=== PATIENT | male | born 1965 | race Caucasian/White ===

== ENCOUNTER 2016-08-13 13:55 | Day surgery (SDC) | payer OTHER ==
[~2016-08-13] VITALS: Ht 167.6 cm; Wt 59.0 kg
[~2016-08-13 13:55] MED LIST: B-COCAP2 PO; CLOP1TAB15 PO; IMDSR60 PO; METO-217 PO; OXYC-609 PO; OXYC1TAB3 PO; PSYL55.43 PO; VANCOMYCIN INJ 1,000 MG in SODIUM CHLORIDE 0.9% 250ML 250 ML IV SCH
[2016-08-13] MEDS ORDERED: METO1TAB69 PO (14:32)
[2016-08-13 14:34] VITALS: BP 85/47; PULSE 72; TEMP 37; O2SAT 96; Ht 167.6 cm; Wt 59.0 kg
[2016-08-13 15:29] VITALS: BP 87/46; PULSE 68; O2SAT 95
[2016-08-13 17:33] VITALS: BP 108/66; PULSE 67; TEMP 37; O2SAT 95
[2016-08-13 18:18] LABS: HEMATOCRIT 34.4 % (42-52); MEAN CELL VOLUME 89.1 fL (80-100); MEAN CORPUSCULAR HEMOGLOBIN 30.1 pg (25-34); MEAN CORPUSCULAR HGB CONC 33.7 g/dl (32-36); PLATELET COUNT 226 K/uL (130-400); RED BLOOD COUNT 3.86 M/uL (4.7-6.1); WHITE BLOOD COUNT 35.59 K/uL (4.8-10.8)
[2016-08-13] MEDS ORDERED: PLV75 PO (22:13)
[2016-08-13] MEDS ORDERED: [UNRECOGNIZED DRUG - CODE] PO (22:13)
[2016-08-13] MEDS ORDERED: ISOS60TA25 PO (22:13)
[2016-08-13] MEDS ORDERED: LPT/20 PO (22:13)
[2016-08-13] MEDS ORDERED: CINA0.42 PO (22:13)
[2016-08-13] MEDS ORDERED: PRT/40 PO (22:13)
[2016-08-13] MEDS ORDERED: ASPI81TA28 PO (22:17)
[2016-08-13] MEDS ORDERED: AMPI500C9 PO (22:17)
[2016-08-13] MEDS ORDERED: B-CO1CAP17 PO (22:30)
[2016-08-13] MEDS ORDERED: PSYL48.59 PO (22:30)
[2016-08-21] MEDS ORDERED: VNCS125 PO (13:50)
[2016-08-21] MEDS ORDERED: PRED10TA PO (13:50)
[2016-08-21] MEDS ORDERED: CEPH500C2 PO (13:50)
[2016-09-14] MEDS ORDERED: VNCS125 PO (10:41)
[2016-11-21] MEDS ORDERED: CPC PO (11:42)
[2016-12-13] MEDS ORDERED: IMDSR60 PO (11:26)
== END 2016-08-31 13:51 | disposition home or self-care (01) ==
LOC: C.MTU 13:55
PROVIDERS: ATTEND Internal Medicine
DX: N18.6 End stage renal disease (principal); R78.81 Bacteremia

== ENCOUNTER 2016-08-13 19:04 | Inpatient (IN) | payer OTHER ==
[~2016-08-13] VITALS: Ht 167.6 cm; Wt 59.6 kg
[~2016-08-13 19:04] MED LIST changes: +METO1TAB69 PO; -VANCOMYCIN INJ 1,000 MG in SODIUM CHLORIDE 0.9% 250ML 250 ML IV SCH
[2016-08-13] MEDS ORDERED: MoRPHine SULFATE 4 MG/ML 1 ML CARP\\VIAL IV STA (20:07)
[2016-08-13] MEDS ORDERED: ONDANSETRON INJ 2 MG/ML 2 ML VIAL IV STA (20:07)
--- NOTE | 2016-08-13 20:44 | DIAGNOSTIC IMAGING REPORT ---
CHEST ONE VIEW PORTABLE CLINICAL HISTORY: Sepsis. COMPARISON STUDY: Chest radiograph June 26, 2016. FINDINGS: No pneumothorax or pleural effusion is present. There are median sternotomy wires. Moderate enlargement of the cardiac silhouette is unchanged. There is no evidence of pulmonary edema. The appearance of the chest is unchanged. IMPRESSION: No acute cardiopulmonary findings. Stable cardiomegaly. Electronically signed by: Billy Mckay M.D. 08/13/2016 8:42 PM Dictated Date/Time: 08/13/2016 8:42 PM
[2016-08-13 21:04] LABS: INR 1.5 (0.9-1.1); PARTIAL THROMBOPLASTIN RATIO 1.8; PROTHROMBIN TIME (PATIENT) 16.1 SECONDS (9.0-12.0)
[2016-08-13] MEDS ORDERED: SODIUM CHLORIDE 0.9% 500ML 500 ML IV STA (21:09)
[2016-08-13 21:17] LABS: ALB/GLOB RATIO 0.4 (0.9-2); CALCIUM 8.9 mg/dl (8.5-10.1); CREATININE 6.1 mg/dl (0.60-1.40)
[2016-08-13 21:18] LABS: HEMATOCRIT 34.1 % (42-52); MEAN CELL VOLUME 89.7 fL (80-100); MEAN CORPUSCULAR HEMOGLOBIN 30.5 pg (25-34); MEAN PLATELET VOLUME 11.6 fL (7.4-10.4); PLATELET COUNT 239 K/uL (130-400); POTASSIUM 4.2 mmol/L (3.5-5.1); WHITE BLOOD COUNT 33.65 K/uL (4.8-10.8)
[2016-08-13 21:24] LABS: BASO % 0.2 %; BASO ABS # 0.07 K/uL (0-0.2); BUN/CREATININE RATIO 5.9 (10-20); COMPLETE YES; EOS % 0.2 %; IG% 1.1 %; LYMPH % 8.3 %; LYMPH ABS # 2.78 K/uL (1.2-3.4); MONO % 6.4 %; NEUT % 83.8 %; TARGET CELLS 1+; VACUOLIZATION 2+
--- NOTE | 2016-08-13 21:27 | DIAGNOSTIC IMAGING REPORT ---
CT OF THE ABDOMEN AND PELVIS WITHOUT CONTRAST, STONE PROTOCOL CLINICAL HISTORY: Abdominal pain. Sepsis. Evaluate for ascites. COMPARISON STUDY: CT of the abdomen and pelvis June 26, 2016. TECHNIQUE: Helical axial images of the abdomen and pelvis were obtained without IV or oral contrast according to renal stone protocol. FINDINGS: The heart is moderately enlarged. Calcification within the wall of the right ventricle is noted. This is unchanged. There is also calcification along the liver capsule and within a right abdominal hernia sac along the abdominal wall. A small amount of ascites is noted. There is generalized anasarca which has increased since prior exam. Evaluation of the abdomen and pelvis is suboptimal on this unenhanced exam. The spleen is not visualized. Numerous moderately enlarged retroperitoneal lymph nodes are unchanged since exam of June 26, 2016. These measure up to 1.9 cm. 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 This contains multiple small bowel loops. There is no evidence for a bowel obstruction. Bilateral lower quadrant renal allografts are noted. There is extensive vascular calcification. The appearance of the allograft is unchanged and prior exam of June 26, 2016. No pneumatosis, free air or portal venous gas is present. Enlarged iliac lymph nodes are unchanged no suspicious skeletal lesions are identified. IMPRESSION: 1. Suboptimal evaluation of the abdomen and pelvis given the lack of IV and oral contrast. 2. Generalized anasarca and a small amount of abdominal and pelvic ascites which has increased since CT of June 26, 2016. 3. Moderate abdominal and pelvic lymphadenopathy. This is similar to prior CT but mildly increased since earlier exams. This is nonspecific and could reflect a lymphoproliferative process or be reactive. 4. Redemonstration of multifocal calcifications within the abdomen. This is nonspecific although could be related to renal failure. 5. Extensive atherosclerotic calcification with suspected occlusion of the right common iliac artery. 6. Cirrhotic liver. 7. Sided abdominal hernia which may reflect a Spigelian which contains multiple loops of small bowel. No bowel obstruction. Electronically signed by: Billy Mckay M.D. 08/13/2016 9:25 PM Dictated Date/Time: 08/13/2016 9:12 PM
[2016-08-13] MEDS ORDERED: ERTAPENEM 1 GM ADDVIAL IV ONE (22:00)
[2016-08-13] MEDS ORDERED: PRT/40 PO (22:13)
[2016-08-13] MEDS ORDERED: ISOS60TA25 PO (22:13)
[2016-08-13] MEDS ORDERED: CINA0.42 PO (22:13)
[2016-08-13] MEDS ORDERED: PLV75 PO (22:13)
[2016-08-13] MEDS ORDERED: [UNRECOGNIZED DRUG - CODE] PO (22:13)
[2016-08-13] MEDS ORDERED: LPT/20 PO (22:13)
[2016-08-13] MEDS ORDERED: ASPI81TA28 PO (22:17)
[2016-08-13] MEDS ORDERED: AMPI500C9 PO (22:17)
[2016-08-13] MEDS ORDERED: B-CO1CAP17 PO (22:30)
[2016-08-13] MEDS ORDERED: PSYL48.59 PO (22:30)
--- NOTE | 2016-08-13 22:43 | History and Physical ---
History & Physical Date & Time of Service: Aug 13, 2016 at 22:21 Chief Complaint: Sent By To Get Mri, Abd Pain, Has Sepsis Primary Care Physician: Todd Azevedo M.D. 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 The pt developed fevers and chills starting 4 days prior. He was ruled out for influ and cultured at his MDs office. He was then started on Vancomycin when results returned + for G (+) cocci. He felt that there may have been some increasing drainage form the site of his recent cystostomy and notes that the incision had opened up 1 week prior. He was instructed to attend the ER and obtain a CT abdomen to evaluate for a new fluid collection which might be serving as an infection reservoir. There is no significant collection on CT. Specificities/sensitivities have not resulted at present and the pt will be admitted for broad spectrum coverage pending results. He denies diarrhea, nausea, vomiting, CP, SOB - he does not make urine. The pt first developed cholecystitis summer 2015 - he had a drain placed as he was considered too high risk for surgery. The drain was in place for 3 months when he proceeded to a cholecystectomy. He states that the surgery was complicated by shock and that the gallbladder was attached to the liver capsule. He suffered acute on chronic liver failure and possibly cardiogenic shock following surgery. Past Medical/Surgical History Medical Problems: (1) Acute respiratory failure Status: Resolved (2) CAD / [place] (myocardial infarction) Status: Chronic (3) Syncope Status: Resolved 4) ESRD on dialysis 5) Atrial flutter 6) History of aneurysmal GI bleed 7) Chronic systolic CHF - EF 40% 8) PVD 9) Chronic anemia 10) HPL 11) HTN 12) Cholecystitis 13) Cirrhosis - states that he was diagnosed this summer and was being evaluated for a transplant following his gall bladder surgery Surgical Problems: (1) History of renal transplant x 3 1970s, 1990s, 2009 - recent rejection/ failure 2015 Status: Chronic (2) Hx of CABG Status: Resolved 3 vessel 3) Cholecystectomy - cystostomy drain placed initially 4) Dialysis graft Family History FH: heart disease Social History Smoking Status: Never Smoker Drug Use: none Marital Status: Housing status: lives with family Occupational Status: employed, disabled Immunizations History of Influenza Vaccine: No Influenza Vaccine Date: May 03, 2008 History of Tetanus Vaccine?: Unknown Tetanus Immunization Date: Oct 06, 2000 History of Pneumococcal: No Pneumococcal Date: Oct 06, 2005 History of Hepatitis B Vaccine: Unknown Hepatitis Immunization Date: Oct 06, 2000 Multi-Drug Resistant Organisms History of MDRO: No Allergies Coded Allergies: POLLEN (Verified Allergy, Unknown, "HAYFEVER", 08/13/16) Diazoxide (Verified Adverse Reaction, Intermediate, ELEVATE BP;N&V, ) NSAIDs (Verified Adverse Reaction, Unknown, KIDNEY TRANSPLANT, 08/13/16) Home Medications Scheduled Ampicillin (Ampicillin), 2 GM PO PRN UD Aspirin (Aspirin Ec), 81 MG PO DAILY Atorvastatin (Atorvastatin Calcium), 20 MG PO HS Cinacalcet Hydrochloride (Sensipar), 30 MG PO QAM Clopidogrel Bisulfate (Clopidogrel), 75 MG PO DAILY Isosorbide Mononitrate Ext Rel (Imdur Ext Rel), 60 MG PO DAILY Metoprolol Succ (Toprol Xl) (Toprol-Xl ), 100 MG PO BID Pantoprazole (Pantoprazole Sodium), 40 MG PO BID Penicillin V Potassium (Penicillin V Potassium), 250 MG PO QAM Psyllium (Metamucil), 1 PKT PO DAILY Vitamin B Cmplx/Vitc/Folic Ac (Nephrocaps), 1 CAP PO DAILY Scheduled PRN Oxycodone HCl (Oxycodone HCl), 5 MG PO Q8 PRN for Pain Review of Systems Constitutional: + chills, + fever, + sweats Eyes: No eye pain, No worsening of vision ENT: No hearing loss, No nasal symptoms, No unusual epistaxis Respiratory: No cough, No sputum, No wheezing Cardiovascular: No PND, No chest pain, No orthopnea Abdomen: + nausea, + pain, No vomiting Musculoskeletal: No joint pain, No muscle pain Genitourinary - Male: No dysuria, No hematuria, No urinary frequency, No urinary urgency Neurologic: No memory loss, No paralysis, No weakness Psychiatric: No depression symptoms Endocrine: No fatigue Hematologic / Lymphatic: No abnormal bleeding/bruising Integumentary: No rash Allergic / Immunologic: No environmental allergies Physical Exam Vital Signs Date Time Temp Pulse Resp B/P Pulse Ox O2 Delivery O2 Flow Rate FiO2 08/13/16 21:20 73 18 95/55 93 Room Air 08/13/16 20:37 93 Room Air 08/13/16 19:14 37.3 73 20 95/63 94 Room Air General Appearance: WD/WN, no apparent distress Head: normocephalic Eyes: normal inspection, EOMI, + pertinent finding (Icteric) ENT: normal ENT inspection, pharynx normal Neck: supple, no JVD Respiratory/Chest: chest non-tender, lungs clear, normal breath sounds, no respiratory distress, no accessory muscle use Cardiovascular: regular rate, rhythm, no edema Abdomen/GI: + tenderness (Abdomen is tender with guarding in RLQ and LUQ - there is erythema over the RLQ and distention due to placement of a cadaveric kidney in addition to a hernia), + pertinent finding (open - clean appearing incision wound RUQ) Back: normal inspection, no CVA tenderness Extremities/Musculoskelatal: normal inspection, no calf tenderness, normal capillary refill, no pedal edema, normal range of motion Neurologic/Psych: 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 tested, no motor/sensory deficits, alert, normal mood/affect, normal reflexes, oriented x 3 Skin: + jaundice, + pertinent finding (Erythema over RLQ - open - clean appearing incision wound RUQ) Diagnostics Laboratory Results Results Past 24 Hours Test 08/13/16 20:25 08/13/16 20:26 Range/Units White Blood Count 33.65 4.8-10.8 K/uL Red Blood Count 3.80 4.7-6.1 M/uL Hemoglobin 11.6 14.0-18.0 g/dL Hematocrit 34.1 42-52 % Mean Corpuscular Volume 89.7 80-100 fL Mean Corpuscular Hemoglobin 30.5 25-34 pg Mean Corpuscular Hemoglobin Concent 34.0 32-36 g/dl Platelet Count 239 130-400 K/uL Mean Platelet Volume 11.6 7.4-10.4 fL Neutrophils (%) (Auto) 83.8 % Lymphocytes (%) (Auto) 8.3 % Monocytes (%) (Auto) 6.4 % Eosinophils (%) (Auto) 0.2 % Basophils (%) (Auto) 0.2 % Neutrophils # (Auto) 28.18 1.4-6.5 K/uL Lymphocytes # (Auto) 2.78 1.2-3.4 K/uL Monocytes # (Auto) 2.16 0.11-0.59 K/uL Eosinophils # (Auto) 0.08 0-0.5 K/uL Basophils # (Auto) 0.07 0-0.2 K/uL RDW Standard Deviation 58.0 36.4-46.3 fL RDW Coefficient of Variation 18.4 11.5-14.5 % Immature Granulocyte % (Auto) 1.1 % Immature Granulocyte # (Auto) 0.38 0.00-0.02 K/uL Nucleated RBC Absolute Count (auto) 0.26 0-0 K/uL Nucleated Red Blood Cells % 0.8 % Toxic Vacuolation 2+ Pappenheimer Bodies 1+ Target Cells 1+ Prothrombin Time 16.1 9.0-12.0 SECONDS Prothromb Time International Ratio 1.5 0.9-1.1 Activated Partial Thromboplast Time 46.2 21.0-31.0 SECONDS Partial Thromboplastin Ratio 1.8 Sodium Level 135 136-145 mmol/L Potassium Level 4.2 3.5-5.1 mmol/L Chloride Level 93 98-107 mmol/L Carbon Dioxide Level 27 21-32 mmol/L Anion Gap 14.0 3-11 mmol/L Blood Urea Nitrogen 35 7-18 mg/dl Creatinine 6.10 0.60-1.40 mg/dl Est Creatinine Clear Calc Drug Dose 12.5 ml/min Estimated GFR () 11.4 Estimated GFR (Non- 9.8 BUN/Creatinine Ratio 5.9 10-20 Random Glucose 87 70-99 mg/dl Calcium Level 8.9 8.5-10.1 mg/dl Total Bilirubin 3.2 0.2-1 mg/dl Aspartate Amino Transf (AST/SGOT) 27 15-37 U/L Alanine Aminotransferase (ALT/SGPT) 14 12-78 U/L Alkaline Phosphatase 332 45-117 U/L Total Protein 7.5 6.4-8.2 gm/dl Albumin 2.0 3.4-5.0 gm/dl Globulin 5.5 2.5-4.0 gm/dl Albumin/Globulin Ratio 0.4 0.9-2 Lipase 32 73-393 U/L Bedside Lactic Acid Venous 4.16 0.90-1.70 mmol/L Microbiology Results 08/13/16 Blood Culture, Received Pending 08/13/16 Blood Culture, Received Pending Diagnostic Radiology 1. Suboptimal evaluation of the abdomen and pelvis given the lack of IV and oral contrast. 2. Generalized anasarca and a small amount of abdominal and pelvic ascites which has increased since CT of June 26, 2016. 3. Moderate abdominal and pelvic lymphadenopathy. This is similar to prior CT but mildly increased since earlier exams. This is nonspecific and could reflect a lymphoproliferative process or be reactive. 4. Redemonstration of multifocal calcifications within the abdomen. This is nonspecific although could be related to renal failure. 5. Extensive atherosclerotic calcification with suspected occlusion of the right common iliac artery. 6. Cirrhotic liver. 7. R Sided abdominal hernia which may reflect a Spigelian which contains multiple loops of small bowel. No bowel obstruction. 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 The pt developed fevers and chills starting 4 days prior. He was ruled out for influ and cultured at his MDs office. He was then started on Vancomycin when results returned + for G (+) cocci. He felt that there may have been some increasing drainage form the site of his recent cystostomy and notes that the incision had opened up 1 week prior. He was instructed to attend the ER and obtain a CT abdomen to evaluate for a new fluid collection which might be serving as an infection reservoir. There is no significant collection on CT. Specificities/sensitivities have not resulted at present and the pt will be admitted for broad spectrum coverage pending results. He denies diarrhea, nausea, vomiting, CP, SOB - he does not make urine. 1) Fevers / leukocytosis - multiple possible sources exist for his current infection including intraabdominal, cellulitis and dialysis-related bacteremia. Blood culture is+ for Gram(+) cocci however specificity and sensitivity are pending. He has been placed on Vanc and Ertapenem. We will consult the ID service. He may need surgical eval as well if this is an intraabdominal process. SBP is less likely as there is only a small amount of ascites present but should be kept in mind due to his cirrhosis and abdominal tenderness. Clinically this may involve his hernia mesh or cadaveric kidney as he is very tender in his RLQ and there is overlying warmth and erythema. He may need an echo if no clear source is elucidated. Despite a high white count and fevers he has been clinically stable. If this pt requires any intervention he should likely be transferred to a tertiary center - he was previously at [facility]. 2) ESRD - Nephrology will be consulted for dialysis. 3) CAD - no evidence of ACS - cont ASA, statin, Imdur. 4) Cirrhosis - although the pt states he had liver failure the past summer, it does not appear that he appreciates this chronic condition. This may be contributing to his anasarca and he likely needs long-term f/u with a store sales consultant. LFTs are elevated - degree of chronicity unclear. Will trend labs AM. 5) CHF - Anasarca is present however he does not appear volume overloaded at present. Full code - heparin prophylaxis Total time for this admit including extensive record review, discusion with the ER attending and pt's Rn Endocrinology, Med rec, review of labs and imaging - 45 min Level of Care Med/Surg Resuscitation Status FULL RESUSCITATION VTE Prophylaxis Risk Level: Moderate Given or contraindicated: Unfractionated heparin SQ
[2016-08-13] MEDS ORDERED: ZOLPIDEM TARTRATE 5 MG TAB PO PRN (23:00)
[2016-08-13] MEDS ORDERED: MAGNESIUM HYDROXIDE SUSP 30 ML UDC PO PRN (23:00)
[2016-08-13] MEDS ORDERED: ACETAMINOPHEN 325 MG TAB PO PRN (23:00)
[2016-08-13] MEDS ORDERED: ALUMINUM/MAGNESIUM/SIMETH (MAALOX MAX) 30 ML UDC PO PRN (23:00)
[2016-08-13] MEDS ORDERED: INVANZ~PHARMACY CONSULT IN PROGRESS PRN (23:30)
[2016-08-13] MEDS ORDERED: VANCOMYCIN CONSULT ACTIVE PRN (23:30)
[2016-08-13] MEDS ORDERED: POLYETHYLENE (MIRALAX) 17 GM PACK PO PRN (23:30)
--- NOTE | 2016-08-13 23:47 | EMERGENCY ROOM VISIT NOTE ---
History Report prepared by Craig: Darcie Palacio Under the Supervision of: Dr. Saleem Yeager M.D. First contact with patient: 19:59 Chief Complaint: REFERRED BY DOCTOR Stated Complaint: SENT BY DR TO GET MRI, ABD PAIN, HAS SEPSIS History of Present Illness The patient is a 51 year old male who presents to the Emergency Room with complaints of persistent abdominal pain that started earlier today. He rates his discomfort as an 8/10 in severity. The patient has an extensive past medical history that includes end stage renal disease. He had his first kidney transplant in the 1970's. He states it lasted for 8 years. His second transplant was in the and lasted for 15 years and his most recent transplant was 5 years ago and it failed last year, in 2016. He is currently on dialysis and was last dialyzed yesterday. He no longer makes urine. He has been nauseous and has vomited a few times over the past few days. The patient is currently being treated for "sepsis" and was given IV Vancomycin earlier today. He produced a gram positive blood culture 4 days ago after experiencing a persistent fever for the previous few days. He believes he is still experiencing a low grade fever around 99 degrees. His Agricultural Real Estate Agent called him earlier today and recommended he come to the ED for IV antibiotics and to possibly get a CT scan to look for a fluid collection. The patient also complains of a cough and body aches and notes several family members have been ill recently. Source of History: patient Onset: earlier today Position: abdomen Symptom Intensity: 8/10 Timing: other (persistent) Associated Symptoms: + cough, + fevers, + nausea, + vomiting Review of Systems See HPI for pertinent positives & negatives. A total of 10 systems reviewed and were otherwise negative. Past Medical & Surgical Medical Problems: (1) Abdominal pain (2) Acute H. pylori gastric ulcer (3) Acute respiratory failure (4) Anemia (5) Atrial flutter (6) Bacteremia (7) End-stage renal disease on hemodialysis (8) ESRD (end stage renal disease) on dialysis (9) Fever (10) Gastric mass (11) H. pylori infection (12) Immunosuppression (13) Intractable abdominal pain (14) [place] (myocardial infarction) (15) Secondary hyperparathyroidism of renal origin (16) SIRS (systemic inflammatory response syndrome) (17) Syncope Surgical Problems: (1) History of renal transplant (2) History of renal transplant (3) Hx of CABG Family History FH: heart disease Social History Smoking Status: Never Smoker Alcohol Use: none Drug Use: none Marital Status: Housing Status: lives with significant other Occupation Status: employed, disabled Current/Historical Medications Scheduled Ampicillin (Ampicillin), 2 GM PO PRN UD Aspirin (Aspirin Ec), 81 MG PO DAILY Atorvastatin (Atorvastatin Calcium), 20 MG PO HS Cinacalcet Hydrochloride (Sensipar), 30 MG PO QAM Clopidogrel Bisulfate (Clopidogrel), 75 MG PO DAILY Isosorbide Mononitrate Ext Rel (Imdur Ext Rel), 60 MG PO DAILY Metoprolol Succ (Toprol Xl) (Toprol-Xl ), 100 MG PO BID Pantoprazole (Pantoprazole Sodium), 40 MG PO BID Penicillin V Potassium (Penicillin V Potassium), 250 MG PO QAM Psyllium (Metamucil), 1 PKT PO DAILY Vitamin B Cmplx/Vitc/Folic Ac (Nephrocaps), 1 CAP PO DAILY Scheduled PRN Oxycodone HCl (Oxycodone HCl), 5 MG PO Q8 PRN for Pain Allergies Coded Allergies: POLLEN (Verified Allergy, Unknown, "HAYFEVER", 08/13/16) Diazoxide (Verified Adverse Reaction, Intermediate, ELEVATE BP;N&V, ) NSAIDs (Verified Adverse Reaction, Unknown, KIDNEY TRANSPLANT, 08/13/16) Physical Exam Vital Signs Date Time Temp Pulse Resp B/P Pulse Ox O2 Delivery O2 Flow Rate FiO2 08/13/16 21:20 73 18 95/55 93 Room Air 08/13/16 20:37 93 Room Air 08/13/16 19:14 37.3 73 20 95/63 94 Room Air Physical Exam Constitutional: Vital signs reviewed. Eyes: Pupils are equal round reactive to light. Conjunctiva are noninjected. ENT: Pharynx is clear without erythema or exudate. Mucous membranes are moist. Neck supple without meningeal signs. Respiratory: Clear to auscultation bilaterally. Breath sounds are equal bilaterally. Cardiovascular: Regular rate and rhythm. No rubs or gallops. GI: Soft, nondistended. Tender in the RUQ, no guarding. Bowel sounds are present. Musculoskeletal: AV fistula in the left arm, palpable thrill. Integumentary: No cyanosis. Neurological: The patient is awake and alert. No focal deficits. Psychiatric: Normal affect. Medical Decision & Procedures ER Provider Diagnostic Interpretation: This X-Ray was reviewed and interpreted by myself and the radiologist. CHEST ONE VIEW PORTABLE CLINICAL HISTORY: Sepsis. COMPARISON STUDY: Chest radiograph June 26, 2016. FINDINGS: No pneumothorax or pleural effusion is present. There are median sternotomy wires. Moderate enlargement of the cardiac silhouette is unchanged. There is no evidence of pulmonary edema. The appearance of the chest is unchanged. IMPRESSION: No acute cardiopulmonary findings. Stable cardiomegaly. Electronically signed by: Billy Mckay M.D. 08/13/2016 8:[address] scan was reviewed and interpreted by the radiologist and reviewed by myself. CT OF THE ABDOMEN AND PELVIS WITHOUT CONTRAST, STONE PROTOCOL CLINICAL HISTORY: Abdominal pain. Sepsis. Evaluate for ascites. COMPARISON STUDY: CT of the abdomen and pelvis June 26, 2016. TECHNIQUE: Helical axial images of the abdomen and pelvis were obtained without IV or oral contrast according to renal stone protocol. FINDINGS: The heart is moderately enlarged. Calcification within the wall of the right ventricle is noted. This is unchanged. There is also calcification along the liver capsule and within a right abdominal hernia sac along the abdominal wall. A small amount of ascites is noted. There is generalized anasarca which has increased since prior exam. Evaluation of the abdomen and pelvis is suboptimal on this unenhanced exam. The spleen is not visualized. Numerous moderately enlarged retroperitoneal lymph nodes are unchanged since exam of June 26, 2016. These measure up to 1.9 cm. 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 This contains multiple small bowel loops. There is no evidence for a bowel obstruction. Bilateral lower quadrant renal allografts are noted. There is extensive vascular calcification. The appearance of the allograft is unchanged and prior exam of June 26, 2016. No pneumatosis, free air or portal venous gas is present. Enlarged iliac lymph nodes are unchanged no suspicious skeletal lesions are identified. IMPRESSION: 1. Suboptimal evaluation of the abdomen and pelvis given the lack of IV and oral contrast. 2. Generalized anasarca and a small amount of abdominal and pelvic ascites which has increased since CT of June 26, 2016. 3. Moderate abdominal and pelvic lymphadenopathy. This is similar to prior CT but mildly increased since earlier exams. This is nonspecific and could reflect a lymphoproliferative process or be reactive. 4. Redemonstration of multifocal calcifications within the abdomen. This is nonspecific although could be related to renal failure. 5. Extensive atherosclerotic calcification with suspected occlusion of the right common iliac artery. 6. Cirrhotic liver. 7. Sided abdominal hernia which may reflect a Spigelian which contains multiple loops of small bowel. No bowel obstruction. Electronically signed by: Billy Mckay M.D. 08/13/2016 9:25 PM Laboratory Results 08/13/16 20:25 Red Blood Count 3.80, Mean Corpuscular Volume 89.7, Mean Corpuscular Hemoglobin 30.5, Mean Corpuscular Hemoglobin Concent 34.0, Mean Platelet Volume 11.6, Neutrophils (%) (Auto) 83.8, Lymphocytes (%) (Auto) 8.3, Monocytes (%) (Auto) 6.4, Eosinophils (%) (Auto) 0.2, Basophils (%) (Auto) 0.2, Neutrophils # (Auto) 28.18, Lymphocytes # (Auto) 2.78, Monocytes # (Auto) 2.16, Eosinophils # (Auto) 0.08, Basophils # (Auto) 0.07 08/13/16 20:25 Test 08/13/16 20:25 08/13/16 20:26 White Blood Count 33.65 K/uL (4.8-10.8) Red Blood Count 3.80 M/uL (4.7-6.1) Hemoglobin 11.6 g/dL (14.0-18.0) Hematocrit 34.1 % (42-52) Mean Corpuscular Volume 89.7 fL (80-100) Mean Corpuscular Hemoglobin 30.5 pg (25-34) Mean Corpuscular Hemoglobin Concent 34.0 g/dl (32-36) Platelet Count 239 K/uL (130-400) Mean Platelet Volume 11.6 fL (7.4-10.4) Neutrophils (%) (Auto) 83.8 % Lymphocytes (%) (Auto) 8.3 % Monocytes (%) (Auto) 6.4 % Eosinophils (%) (Auto) 0.2 % Basophils (%) (Auto) 0.2 % Neutrophils # (Auto) 28.18 K/uL (1.4-6.5) Lymphocytes # (Auto) 2.78 K/uL (1.2-3.4) Monocytes # (Auto) 2.16 K/uL (0.11-0.59) Eosinophils # (Auto) 0.08 K/uL (0-0.5) Basophils # (Auto) 0.07 K/uL (0-0.2) RDW Standard Deviation 58.0 fL (36.4-46.3) RDW Coefficient of Variation 18.4 % (11.5-14.5) Immature Granulocyte % (Auto) 1.1 % Immature Granulocyte # (Auto) 0.38 K/uL (0.00-0.02) Nucleated RBC Absolute Count (auto) 0.26 K/uL (0-0) Nucleated Red Blood Cells % 0.8 % Toxic Vacuolation 2+ Pappenheimer Bodies 1+ Target Cells 1+ Prothrombin Time 16.1 SECONDS (9.0-12.0) Prothromb Time International Ratio 1.5 (0.9-1.1) Activated Partial Thromboplast Time 46.2 SECONDS (21.0-31.0) Partial Thromboplastin Ratio 1.8 Anion Gap 14.0 mmol/L (3-11) Est Creatinine Clear Calc Drug Dose 12.5 ml/min Estimated GFR () 11.4 Estimated GFR (Non- 9.8 BUN/Creatinine Ratio 5.9 (10-20) Calcium Level 8.9 mg/dl (8.5-10.1) Total Bilirubin 3.2 mg/dl (0.2-1) Aspartate Amino Transf (AST/SGOT) 27 U/L (15-37) Alanine Aminotransferase (ALT/SGPT) 14 U/L (12-78) Alkaline Phosphatase 332 U/L (45-117) Total Protein 7.5 gm/dl (6.4-8.2) Albumin 2.0 gm/dl (3.4-5.0) Globulin 5.5 gm/dl (2.5-4.0) Albumin/Globulin Ratio 0.4 (0.9-2) Lipase 32 U/L (73-393) Bedside Lactic Acid Venous 4.16 mmol/L (0.90-1.70) Laboratory results as reviewed by me. Medications Administered Medications (Trade) Dose Ordered Sig/Amanda Route Start Time Stop Time Status Last Admin Dose Admin Morphine Sulfate (MoRPHine SULFATE INJ) 4 mg NOW STAT IV 08/13/16 20:07 08/13/16 20:10 DC 08/13/16 20:43 4 MG Ondansetron HCl 4 mg 4 mg NOW STAT IV 08/13/16 20:07 08/13/16 20:10 DC 08/13/16 20:42 4 MG Sodium Chloride (Nss 500ml) 500 ml @ 999 mls/hr Q31M STAT IV 08/13/16 21:09 08/13/16 21:39 DC 08/13/16 21:21 999 MLS/HR Ertapenem (Invanz Iv) 1 gm ONE ONCE IV 08/13/16 22:00 08/13/16 22:01 DC 08/13/16 22:12 1 GM ED Course 2001: The patient was evaluated in room B10. A complete history and physical exam was performed. 2006: Zofran 4 mg IV, Morphine Sulfate 4 mg IV. 2108: NSS 500 ml @ 999 mls/hr IV. 2129: I reassessed the patient. He is resting comfortably. I discussed my plan for him to remain in the hospital for further evaluation and management and he and his verbalized complete understanding and agreement. 2148: I discussed the patients case with Dr. Woodson, [facility] Hospitalist. He is requesting I administer Ertapenem. The patient will be further evaluated. 2199: Ertapenem 1 gm IV. Medical Decision This is a 51-year-old male who presents with positive blood cultures, fever and abdominal pain. Differential diagnosis includes sepsis, SIRS, bacteremia, intra -abdominal abscess, pneumonia. I did perform a limited focused review of portions of the patient's old chart on the electronic medical record. The patient had blood work today which showed a white count of 36,000. I did evaluate the patient as noted above. The patient is fairly well appearing. He does complain of abdominal pain and has some tenderness in the right upper abdomen. IV access was established. The patient was placed on a continuous quality assurance monitor chassis. I did treat patient with IV morphine and Zofran. I did order and personally review the patient's chest x-ray as described above. Blood cultures were ordered. I did order and review the patient's blood work as noted in the electronic medical record. His white blood cell count is 35, 000. His lactic acid is over 4. His creatinine is 6. He is mildly hypertensive but reviewing his previous blood pressures he tends to run on the low side. He is not symptomatic or lightheaded. He was given normal saline IV. I did order a CT of the abdomen and pelvis. I did review the images myself as well as the radiology report as described above. There is no abscess or fluid collection. He does have some mild ascites and mild anasarca which was present on previous scanning. I did discuss the test results with the patient. He did wish to go home but I did not feel this was prudent given his findings. I did discuss the case with the hospitalist to requested he be placed on ertapenem. I did order IV ertapenem for the patient and he was admitted to the hospital. Consults Time Called: 2144 Consulting Physician: Dr. Woodson [facility] Hospitalist Returned Call: 2148 I discussed the patients case with Dr. Woodson [facility] Hospitalist. He is requesting I administer Ertapenem. The patient will be further evaluated. Impression Primary Impression: Sepsis Additional Impression: RUQ abdominal pain Scribe Attestation The scribe's documentation has been prepared under my direct and personally reviewed by me in its entirety. I confirm that the note above accurately reflects all work, treatment, procedures, and medical decision making performed by me. Departure Information Dispostion Being Evaluated By Hospitalist Referrals Todd Azevedo M.D. (PCP) Patient Instructions My [facility] Problem Qualifiers
[2016-08-14] VITALS (97 sets, daily range): BP systolic 58–161; BP diastolic 17–85; PULSE 58–77; TEMP 36.4–37.5; O2SAT 88–100; Ht 167.6 cm; Wt 59.6 kg
[2016-08-14] MEDS ORDERED: SODIUM CHLORIDE 0.9% 250ML 250 ML IV STA (00:12)
[2016-08-14] MEDS ORDERED: VANCOMYCIN INJ 1,200 MG in SODIUM CHLORIDE 0.9% 250ML 250 ML IV STA (00:31)
[2016-08-14] MEDS: NOREPINEPHRINE BIT INJ 8 MG in DEXTROSE 5% 500ML 500 ML IV PRN ×2 (02:02→15:13)
[2016-08-14] MEDS ORDERED: SODIUM CHLORIDE 0.9% 250ML 250 ML IV SCH (02:15)
[2016-08-14] MEDS: HEPARIN SOD 5000 UNIT/0.5 ML CARP SQ SCH ×3 (05:41→20:55)
[2016-08-14] MEDS: OXYCODONE HCL IR 5 MG TAB (IMMEDIATE RELEASE) PO PRN ×2 (07:39→23:18)
[2016-08-14 07:51] LABS: CREATININE 6.5 mg/dl (0.60-1.40)
[2016-08-14 08:21] LABS: INFLUENZA A PCR Neg for Influ A (NEG); INFLUENZA B PCR Neg for Influ B (NEG)
[2016-08-14] MEDS ORDERED: ACETAMINOPHEN 500 MG TAB PO SCH (08:30)
--- NOTE | 2016-08-14 08:50 | Hospitalist Progress Note ---
Hospitalist Progress Note Date of Service Aug 14, 2016. Subjective Pt evaluation today including: conversation w/ patient, physical exam, chart review, lab review, review of studies, conversation w/ organizational effectiveness consultant, review of inpatient medication list Pain: c/o abdominal wall pain Levophed titrated off, but MAP hanging around 60-65. Medications Current Inpatient Medications Medications (Trade) Dose Ordered Sig/Amanda Route Start Time Stop Time Status Last Admin Dose Admin Aspirin (Ecotrin Tab) 81 mg DAILY PO 08/14/16 09:00 09/13/16 08:59 Atorvastatin Calcium (Lipitor Tab) 20 mg HS PO 08/14/16 21:00 09/13/16 20:59 Clopidogrel Bisulfate (plAVix TAB) 75 mg DAILY PO 08/14/16 09:00 09/13/16 08:59 Isosorbide Mononitrate (Imdur Ext Rel Tab) 60 mg DAILY PO 08/14/16 09:00 09/13/16 08:59 Future Hold Metoprolol Succinate (Toprol Xl Tab) 100 mg BID PO 08/14/16 09:00 09/13/16 08:59 Pantoprazole Sodium (Protonix Tab) 40 mg BID PO 08/14/16 09:00 09/13/16 08:59 Vitamin B Complex/ Vit C/Folic Acid (Nephrocaps) 1 cap DAILY PO 08/14/16 09:00 09/13/16 08:59 Cinacalcet (Sensipar) 30 mg QAM PO 08/14/16 09:00 09/13/16 08:59 Psyllium Hydrophilic Mucilloid (Metamucil Powder) 1 pkt DAILY PO 08/14/16 09:00 09/13/16 08:59 Oxycodone HCl (Roxicodone Immediate Rel Tab) 5 mg Q4H PRN PO 08/13/16 23:00 08/27/16 22:59 08/14/16 07:39 5 MG Hydromorphone HCl (Dilaudid Inj) 0.5 mg Q3H PRN IV 08/13/16 23:00 08/27/16 22:59 Heparin Sodium (Porcine) (Heparin Sq 5000 Unit/0.5ml) 5,000 unit Q8H SQ 08/14/16 06:00 09/13/16 05:59 08/14/16 05:41 5,000 UNIT Al Hydrox/Mg Hydrox/Simethicone (Maalox Max Susp) 15 ml Q4H PRN PO 08/13/16 23:00 09/12/16 22:59 Magnesium Hydroxide (Milk Of Magnesia Susp) 30 ml Q6H PRN PO 08/13/16 23:00 09/12/16 22:59 Polyethylene (Miralax Powder Packet) 17 gm DAILY PRN PO 08/13/16 23:30 09/12/16 23:29 Zolpidem Tartrate (Ambien Tab) 5 mg HSZ PRN PO 08/13/16 23:00 09/12/16 22:59 Ondansetron HCl 4 mg 4 mg Q6H PRN IV 08/13/16 23:00 09/12/16 22:59 Ertapenem/Sodium Chloride (Invanz Iv/Nss 50ml) 55 ml @ 120 mls/hr Q24H IV 08/14/16 22:00 08/23/16 21:59 Miscellaneous Information 1 ea UD PRN N/A 08/13/16 23:30 09/12/16 23:29 Vancomycin HCl 1 ea 1 ea UD PRN N/A 08/13/16 23:30 09/12/16 23:29 Norepinephrine Bitartrate/ Dextrose (Levophed Inj/ D5W 500ml) 508 ml @ 0 mls/hr Q0M PRN IV 08/14/16 01:43 09/13/16 01:42 08/14/16 02:02 0.1 MLS/HR Acetaminophen (Tylenol Tab) 1,000 mg 0830 PO 08/14/16 08:30 08/14/16 10:00 Objective Vital Signs Date Time Temp Pulse Resp B/P Pulse Ox O2 Delivery O2 Flow Rate FiO2 08/14/16 07:45 98 Nasal Cannula 1.0 08/14/16 07:45 36.4 71 27 116/69 98 Nasal Cannula 2.0 08/14/16 05:58 71 20 116/65 95 08/14/16 05:43 70 26 116/60 96 08/14/16 05:28 70 16 129/71 96 08/14/16 04:58 70 21 94/65 94 08/14/16 04:43 70 20 104/60 94 08/14/16 04:30 72 21 94 08/14/16 04:28 70 23 105/58 94 08/14/16 04:13 71 19 108/58 95 08/14/16 04:00 98 Nasal Cannula 2.0 08/14/16 04:00 36.5 70 27 104/64 98 Nasal Cannula 2.0 08/14/16 03:30 71 24 97/52 94 Nasal Cannula 2.0 08/14/16 03:13 72 25 97/54 93 08/14/16 02:50 72 25 96 08/14/16 02:45 73 27 96 08/14/16 02:43 72 30 89/47 94 08/14/16 02:43 72 30 89/47 94 08/14/16 02:35 77 29 91 08/14/16 02:33 75 29 87/50 08/14/16 02:33 75 29 87/50 08/14/16 02:30 75 29 92 08/14/16 02:30 Nasal Cannula 2.0 08/14/16 02:30 75 29 92 08/14/16 02:13 71 26 86/58 08/14/16 02:00 70 29 92 08/14/16 01:45 37.5 73 23 71/43 95 08/14/16 01:45 63/41 95 08/14/16 01:33 58/17 08/14/16 01:30 37.5 73 23 71/43 95 08/14/16 01:20 37.5 08/14/16 01:20 37.5 08/14/16 01:10 37.2 73 23 67/38 95 08/14/16 00:50 73 71/43 08/14/16 00:40 73 80/63 08/14/16 00:30 73 73/ 08/14/16 00:29 72 08/14/16 00:20 76 74/42 08/14/16 00:10 75 18 78/51 08/14/16 00:10 70 20 78/51 94 Room Air 08/14/16 00:04 74 18 81/48 96 Room Air 08/13/16 22:00 78 96/53 94 Room Air 08/13/16 21:20 73 18 95/55 93 Room Air 08/13/16 20:37 93 Room Air 08/13/16 19:14 37.3 73 20 95/63 94 Room Air Physical Exam General Appearance: no apparent distress Eyes: sclerae normal Respiratory/Chest: lungs clear, no respiratory distress Cardiovascular: regular rate, rhythm, no murmur Abdomen: soft, + pertinent finding (tender around perc drain site in RUQ. No rigidity or rebound) Extremities: no pedal edema Neurologic/Psychiatric: alert, oriented x 3 Skin: warm/dry Laboratory Results Last 24 Hours Test 08/13/16 20:25 08/13/16 20:26 08/14/16 00:00 08/14/16 07:00 White Blood Count 33.65 K/uL Red Blood Count 3.80 M/uL Hemoglobin 11.6 g/dL Hematocrit 34.1 % Mean Corpuscular Volume 89.7 fL Mean Corpuscular Hemoglobin 30.5 pg Mean Corpuscular Hemoglobin Concent 34.0 g/dl Platelet Count 239 K/uL Mean Platelet Volume 11.6 fL Neutrophils (%) (Auto) 83.8 % Lymphocytes (%) (Auto) 8.3 % Monocytes (%) (Auto) 6.4 % Eosinophils (%) (Auto) 0.2 % Basophils (%) (Auto) 0.2 % Neutrophils # (Auto) 28.18 K/uL Lymphocytes # (Auto) 2.78 K/uL Monocytes # (Auto) 2.16 K/uL Eosinophils # (Auto) 0.08 K/uL Basophils # (Auto) 0.07 K/uL RDW Standard Deviation 58.0 fL RDW Coefficient of Variation 18.4 % Immature Granulocyte % (Auto) 1.1 % Immature Granulocyte # (Auto) 0.38 K/uL Nucleated RBC Absolute Count (auto) 0.26 K/uL Nucleated Red Blood Cells % 0.8 % Toxic Vacuolation 2+ Pappenheimer Bodies 1+ Target Cells 1+ Prothrombin Time 16.1 SECONDS Prothromb Time International Ratio 1.5 Activated Partial Thromboplast Time 46.2 SECONDS Partial Thromboplastin Ratio 1.8 Sodium Level 135 mmol/L Potassium Level 4.2 mmol/L Chloride Level 93 mmol/L Carbon Dioxide Level 27 mmol/L Anion Gap 14.0 mmol/L Blood Urea Nitrogen 35 mg/dl Creatinine 6.10 mg/dl 6.50 mg/dl Est Creatinine Clear Calc Drug Dose 12.5 ml/min 11.6 ml/min Estimated GFR () 11.4 10.5 Estimated GFR (Non- 9.8 9.1 BUN/Creatinine Ratio 5.9 Random Glucose 87 mg/dl Calcium Level 8.9 mg/dl Total Bilirubin 3.2 mg/dl Aspartate Amino Transf (AST/SGOT) 27 U/L Alanine Aminotransferase (ALT/SGPT) 14 U/L Alkaline Phosphatase 332 U/L Total Protein 7.5 gm/dl Albumin 2.0 gm/dl Globulin 5.5 gm/dl Albumin/Globulin Ratio 0.4 Lipase 32 U/L Bedside Lactic Acid Venous 4.16 mmol/L Influenza Type A (RT-PCR) Neg for Influ A Influenza Type B (RT-PCR) Neg for Influ B Random Vancomycin Level 25.0 mcg/ml Assessment and Plan (1) Septic shock Assessment & Plan: Presumed source is abdominal wall cellulitis/wound infection with Gram stain of wound culture showing GPCs. Will continue broad spectrum abx and await cultures and ID input. Vasopressor management per CCM. (2) End-stage renal disease on hemodialysis Assessment & Plan: Dr. Azevedo consulted for dialysis management. (3) CAD (coronary artery disease) Assessment & Plan: Hold beta rubin in the setting of shock. Continue with ASA, Plavix, statin. (4) Chronic systolic CHF (congestive heart failure) Assessment & Plan: Appears compensated currently. Volume is managed with dialysis. Holding beta rubin. (5) Liver cirrhosis Assessment & Plan: MELD-Na is 30. Monitor labs closely. (6) HTN (hypertension) Assessment & Plan: Holding antihypertensives in the setting of septic shock. Continued [facility] stay due to: abnormal vital signs, multiple IV medications needed
[2016-08-14] MEDS ORDERED: ISOSORBIDE MONONITRATE 60 MG TABCR PO SCH (09:00)
[2016-08-14] MEDS ORDERED: METOPROLOL SUCC 50MG EXT REL TAB PO SCH (09:00)
[2016-08-14] MEDS: PSYLLIUM 58.6% PWD PACK S\\F PO SCH (09:15)
[2016-08-14] MEDS: NEPHROCAPS PO SCH (09:15)
[2016-08-14] MEDS: PANTOprazole SOD 40 MG TAB PO SCH ×2 (09:15→20:52)
[2016-08-14] MEDS: ASPIRIN 81 MG ECTAB PO SCH (09:15)
[2016-08-14] MEDS: CLOPIDOGREL BISULFATE 75 MG TAB PO SCH (09:15)
[2016-08-14] MEDS: CINACALCET 30 MG TAB PO SCH (09:15)
--- NOTE | 2016-08-14 09:51 | Clinical Documentation Query ---
ELENA Vale : Please Document Present on Admission Status for - Septic shock Patient is a 51 year old male admitted with "fevers/leukocytosis". Multiple possible sources outlined by admitting physician. Documentation of septic shock did not occur until the morning after admission. On admission, there was neutrophilic, monocytic leukocytosis, lactic acidemia, and hypotension. Reports of fever. NSS boluses ineffectual resulting in initiation of Norepinephrine. ( x ) Septic shock, POA ( ) Septic shock, not POA Thank You, Allan Canseco, MANDI [phone]
--- NOTE | 2016-08-14 10:25 | Progress Note ---
Progress Note ID Consult Dictated #[id number] A/P: 1. GPC septicemia 2. Post op wound infection - gpc 3. Leukocytosis 4. Fever - resolved -Continue broad spectrum abx, follow culture results -No collection on CT but non contrast, suggest surgery eval, ? transfer -Repeat cultures pending, follow results -Await final results of blood cultures obtained at dialysis earlier this week -Continue supportive care -Will follow, thank you
[2016-08-14 10:44] LABS: HEMATOCRIT 30.8 % (42-52); MEAN CELL VOLUME 89.8 fL (80-100); MEAN CORPUSCULAR HEMOGLOBIN 30.9 pg (25-34); MEAN CORPUSCULAR HGB CONC 34.4 g/dl (32-36); MEAN PLATELET VOLUME 11.7 fL (7.4-10.4); PLATELET COUNT 218 K/uL (130-400); RED BLOOD COUNT 3.43 M/uL (4.7-6.1); WHITE BLOOD COUNT 29.42 K/uL (4.8-10.8)
[2016-08-14] MEDS ORDERED: HYDROCORTISONE SOD SUCCINATE 100 MG/2 ML VIAL IV STA (10:44)
[2016-08-14] MEDS ORDERED: HYDROCORTISONE IV 100 MG in SYRINGE 0 ML IV SCH (11:15)
--- NOTE | 2016-08-14 11:22 | INFECT. DISEASE CONSULTATION ---
DATE OF CONSULTATION: 08/14/2016 REQUESTING PHYSICIAN: Dr. Woodson. HISTORY OF PRESENT ILLNESS: This is a 51-year-old gentleman who was admitted to the hospital after he had worsening fevers and chills as an outpatient. He states that his fevers began over the weekend. He states his T-max at home on Wednesday was 103 degrees. He did take 2 Tylenol and his fever did improve. However, he states he had intermittent fevers between 101-103 degrees throughout the weekend. He was experiencing worsening abdominal pain through the week last week and also had suffered a dehiscence of a recent right quadrant wound from prior cholecystectomy which was performed in mid May. Blood cultures were obtained at dialysis earlier last week and he was notified that they were positive for gram-positive cocci. He was given a one-time dose of vancomycin yesterday prior to his arrival to the hospital. Because of his continued abdominal wound drainage and fever, it was recommended that he come into the hospital for additional treatment. In the Emergency Room, he did have initial workup and was found to have a white blood cell count of 33.6. He has been afebrile since admission to the hospital. He was found to have an elevated lactic acid of 4.1 and he also has an elevated anion gap. He has been on dialysis for a number of years and has had kidney transplants in the past. He states his most recent course of dialysis has been for 2 years. He states overall this has been going well. He does not know the name of the bacteria that was isolated from his dialysis cultures. He did have wound swabs done in the Emergency Room and then again overnight, both of these are growing gram-positive cocci which is yet to be identified. He did have a history of cholecystitis and he was treated with a cholecystotomy tube in February 2016. This remained in place until mid May. At that point, he was admitted at [facility] and his gallbladder was removed; however, it was significantly attached to the liver. He has been doing well postoperatively. He states that his wound began to open slightly in late May to early June but had healed on his own. He denies being on any antibiotics specifically for this. However, last week he noticed that the wound had opened further and was deeper. This has been draining purulent fluid. He states this is especially worse when he stands up. He does have pain associated with it, which appears to be worse as well. He did have a CAT scan of the abdomen and pelvis which did not show any definitive collection; however, this was a noncontrast study. He currently denies any fevers or chills. He does complain of abdominal pain which is unchanged from prior. He did not have any issues with his dialysis recently; however, he was hypotensive and placed on pressor therapy overnight. His blood pressure has improved. He denies any headache or visual changes. He denies any chest pain, cough or shortness of breath. He does state that his is sick with bronchitis, he has 1 child sick with bronchitis and another who has been recently diagnosed with mono. He denies any shortness of breath, wheezing or cough. He denies any nausea, vomiting, diarrhea or abdominal pain. He has been treated previously for leg wounds at the wound center but has not been to the wound center for some time. All remaining review of systems are reviewed and are negative except for as noted above. He was placed on vancomycin by level and he also is receiving ertapenem. He is tolerating these well. A random vanco level today is 25. PAST MEDICAL HISTORY: Significant for CHF; coronary artery disease; end-stage renal disease, on dialysis; atrial flutter; GI bleed; peripheral vascular disease; anemia; hypertension; cirrhosis of the liver with unclear etiology. SURGICAL HISTORY: Significant for multiple renal transplants, first was in the 1970s, second in the and most recently in 2009 with unfortunate rejection, and he has been on dialysis for 2 years. He also has a history of 3-vessel CABG, cholecystotomy tube in February transferred to cholecystectomy, and a dialysis graft in the left upper extremity which has been patent for multiple years. FAMILY HISTORY: Noncontributory. SOCIAL HISTORY: Negative for tobacco use, alcohol use or drug use. He is and lives with family ALLERGIES: HE IS ALLERGIC TO NSAIDs CURRENT MEDICATIONS: Include ertapenem, Lipitor, Ecotrin, Plavix, Protonix, Nephrocaps, Sensipar, Metamucil, subcu heparin, norepinephrine, MiraLax, vanco by level, Roxicodone, Dilaudid, Maalox, milk of magnesia, Ambien and Zofran. PHYSICAL EXAMINATION: VITAL SIGNS: He has been afebrile since admission. His T-max is 37.5, pulse 71, respiratory rate 27, blood pressure 116/69, oxygen saturation is 98% on 2 liters nasal cannula. GENERAL: He is awake, alert and oriented x3. He is in no acute distress. HEENT: Mucous membranes are moist. Extraocular muscles are intact. HEART: Regular. LUNGS: Clear bilaterally. There is no wheezing, rhonchi or rales. ABDOMEN: Tender, specifically in the right upper quadrant. Examination of the wound does reveal a 1 x 0.5 x approximately a centimeter wound which is open. There is surrounding induration, erythema, warmth and tenderness. There is a dressing over place, which is saturated with purulent fluid. I am able to express purulent fluid with light palpation. EXTREMITIES: There is no lower extremity edema. SKIN: Without rash. Left upper extremity fistula has positive bruit and thrill. LABORATORY STUDIES: CBC in the Emergency Room last night reveals a white blood cell count of 33.6, hemoglobin 11.6, hematocrit is 34.1 and platelets are 239. Chemistry panel from the ER reveals a sodium of 135, potassium 4.2, chloride 93, bicarbonate 27, anion gap 14, BUN 35, creatinine 6.1, glucose is 87. AST 27, ALT 14, total bilirubin 3.2, alkaline phosphatase is 332. Albumin was low at 2.0. Vanco level this morning is 25. An influenza swab in the ER was negative. Blood cultures from 08/13/2016 are pending x2 sets. A wound culture from this morning is growing few gram-positive cocci. Review of old micro reveals a culture from 08/13/2016 which has many gram-positive cocci and many wbc's. ID and sensitivity are pending. Review of chest x-ray done in the Emergency Room shows cardiomegaly with no evidence of infiltration. A CAT scan of the abdomen and pelvis was also done in the ER yesterday showing moderately enlarged heart, calcification along the liver capsule. A small amount of ascites is noted. Spleen is not visualized. Moderately enlarged retroperitoneal lymph nodes are unchanged when compared to a CAT scan done on 06/26/2016. There is a right-sided hernia. No evidence of bowel obstruction. Bilateral renal allografts are noted with extensive calcification which is unchanged. There is no free air noted. There was no IV contrast; however, there was no abscess or collection noted at his cholecystectomy site. ASSESSMENT AND PLAN: 1. Gram-positive septicemia. 2. Postop wound infection with gram-positive cocci growing on wound culture. At this time, he can be continued on empiric antibiotics. Certainly, he could be changed to daptomycin which would be renally dosed around his dialysis schedule, awaiting final ID and sensitivity of gram-positive cocci both from the wound and blood cultures. Blood cultures were repeated in the ER last night and results of this are pending. Certainly, his wound is the most likely portal of entry. He will need echocardiogram to assess for vegetation. He does have significantly elevated white blood cell count and this will be monitored. He would likely benefit from surgical evaluation. This may require transfer to [facility] as this is where his cholecystectomy was performed. He will remain on broad-spectrum antibiotics pending additional microdata. Thank you for this consultation. NICA
[2016-08-14 11:33] LABS: ALB/GLOB RATIO 0.4 (0.9-2); BUN/CREATININE RATIO 6.7 (10-20); CALCIUM 8.4 mg/dl (8.5-10.1); CREATININE 6.6 mg/dl (0.60-1.40); POTASSIUM 4.5 mmol/L (3.5-5.1)
[2016-08-14] MEDS ORDERED: SODIUM CHLORIDE 0.9% 1000ML 1,000 ML IV PRN (11:58)
[2016-08-14] MEDS ORDERED: EPOETIN ALFA 10,000 UNITS/ML VIAL IV. ONE (12:00)
[2016-08-14] MEDS ORDERED: HEPARIN SOD (PORCINE) 1000 UNIT/ML 10 ML VIAL IV SCH (12:00)
[2016-08-14] MEDS ORDERED: EPOETIN ALFA INJ 5,000 UNITS in SYRINGE 0 ML IV. SCH (13:00)
--- NOTE | 2016-08-14 13:06 | Progress Note ---
Progress Note Patient meeting CMS severe sepsis criteria, on vasoactive medication, requiring multiple laboratory draws. Patient is difficult venous access requiring foot draws for labs and has had vasoactive medications through PIV for > 3 hours. At this junction I feel the patient may benefit from central venous access for administration of vasoactive medications and minimize phlebotomy sticks. There is an added benefit of measuring SvO2. Patient does not want CVL and inquired about PICC. Risks of PICC include scarring of proximal venous vascular thereby precluding fistula placement on right if needed in the future. Risk of continued vasoactive medication infusion through peripheral IV is approximately 2-15% risk of extravasation. Risk of CVL and central blood stream infection <2% . Patient desires to discuss this with his a p supervisor Dr. Azevedo who he trusts. I have expressed my concerns with the above statistics. We have paged Dr. Azevedo to facilitate the discussion. Allan Beltran DO
--- NOTE | 2016-08-14 13:14 | Pharmacy Progress Note ---
Pharmacy Antibiotic Consult Date of Service: Aug 14, 2016. Pharmacy Dosing Scope Pharmacy is consulted to initiate IV VANCOMYCIN and INVANZ therapy, order appropriate labs and adjust drug dose/frequency. Subjective The patient is a 51 year old male admitted on Aug 14, 2016 at 00:09 for abdominal pain, gram + cocci bacteremia, sepsis - possibly from GI source Objective Height (Feet): 5 Height (Inches): 6.00 Weight (Kilograms): 60.500 Lab Results (24hrs): Laboratory Tests Test 08/13/16 20:25 08/14/16 07:00 08/14/16 10:35 BUN/Creatinine Ratio 5.9 6.7 Blood Urea Nitrogen 35 mg/dl 44 mg/dl Creatinine 6.10 mg/dl 6.50 mg/dl 6.60 mg/dl White Blood Count 33.65 K/uL 29.42 K/uL Red Blood Count 3.80 M/uL Hemoglobin 11.6 g/dL Hematocrit 34.1 % Mean Corpuscular Volume 89.7 fL Mean Corpuscular Hemoglobin 30.5 pg Mean Corpuscular Hemoglobin Concent 34.0 g/dl Platelet Count 239 K/uL Mean Platelet Volume 11.6 fL Neutrophils (%) (Auto) 83.8 % Lymphocytes (%) (Auto) 8.3 % Monocytes (%) (Auto) 6.4 % Eosinophils (%) (Auto) 0.2 % Basophils (%) (Auto) 0.2 % Neutrophils # (Auto) 28.18 K/uL Lymphocytes # (Auto) 2.78 K/uL Monocytes # (Auto) 2.16 K/uL Eosinophils # (Auto) 0.08 K/uL Basophils # (Auto) 0.07 K/uL Micro Results: reportedly has beta-hemolytic strep growing in BLCX from Dr Azevedo's office incision site cx and repeat BLCX's pending negative MRSA nasal swab Assessment & Plan VANCOMYCIN * Vancomycin 1200mg IV x 1 given at 0058 today * Random AM vancomycin level was 25 * He is scheduled to have HD today - level will likely fall as a result, how far it will fall will depend on membrane used and duration of HD * Will check random vancomycin level in the AM w/ random labs * Plan to redose vancomycin when level 15-18 mcg/mL INVANZ * 500gm IV Q 24 hours is the appropriate dose for ESRD on HD; If ertapenem is given 6 hours or more prior to hemodialysis, no supplemental dosing is required Pharmacy will continue to follow and will adjust dose/frequency as necessary. Thank you
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
--- NOTE | 2016-08-14 14:30 | Critical Care Consultation ---
Critical Care Consultation Date of Consultation: Aug 14, 2016. Attending Physician: Marco Woodson MD History of Present Illness This is a 51 yo m with ESRD presenting to us with hypotension and positive blood cultures. Approx a week ago the patient was suffering from increasing RLQ pain and fevers at home of approx 103 F. When he was in dialysis on wednesday (aug 10) the patient was noted to have a temp of 99F and not feeling well. He was also having increased drainage from wound dehiscence of his cholecystectomy scar which was more purulent in nature. It was decided at that time to take blood cultures. He did end up having 2 positive beta hemolytic strep cultures positive so he was brought back to the office and started on Vanco. Dr Azevedo received a call back for the CBC that was drawn he had a white count of > 30 and was recommended to go to the ED. When patient arrived he continued to have RLQ pain and general malaise but no fever was noted. He was also hypotensive. They did respond to fluids which were given in the ED, 500 cc however considering his ESRD he was started on Levophed. This was able to stabilize pressures. He received another dose of vanco in the ED and blood cultures were drawn. It was decided at this time that patient would be transferred to the ICU for further management. This patient has a complex history. With regards to his cholecystectomy, he was first noted to have "diseased gallbladder" in February. It was decided to place a cholecystostomy in order to drain the gallbladder. Soon it was decided to complete a cholecystectomy which was complicated by liver shock. Recently there was dehiscence of the scar and with the fever he has noted increasing drainage from this area. The area surrounding the wound is not tender however the RLQ is. 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 There is no incarcerated bowel but there is loops of bowel in the hernia. On CT he is also noted to have anasarca and a right occluded common iliac artery. He does have a history of arrhythmia which he does not take any anticoagulation for. The arrhythmia was an atrial flutter which is takes metoprolol for. He also notes he had an arrhythmia in the past which required magnesium to treat. In fact he does have a prolonged QTc of 503 and on other admissions he also has prolongation of the QTc > 500. His ESRD is secondary to a strep infection in the past. He has received 3 renal transplants and is not currently on any immunosuppressants as he started to suffer from rejection 2015. He typically receives dialysis MWF and followed by Dr Azevedo. Fistula is left UE. Past Medical/Surgical History ESRD CHF with CABG - EF 40% CAD HTN Cholecystectomy Shock liver Renal transplants x3 Organ rejection Atrial Flutter [place] Family History FH: heart disease Social History Smoking Status: Never Smoker Smokeless Tobacco Use: No Alcohol Use: none Drug Use: none Marital Status: Housing Status: lives with significant other Occupation Status: employed, disabled Allergies Coded Allergies: POLLEN (Verified Allergy, Unknown, "HAYFEVER", 08/13/16) Diazoxide (Verified Adverse Reaction, Intermediate, ELEVATE BP;N&V, ) NSAIDs (Verified Adverse Reaction, Unknown, KIDNEY TRANSPLANT, 08/13/16) Home Medications Scheduled Ampicillin (Ampicillin), 2 GM PO PRN UD Aspirin (Aspirin Ec), 81 MG PO DAILY Atorvastatin (Atorvastatin Calcium), 20 MG PO HS Cinacalcet Hydrochloride (Sensipar), 30 MG PO QAM Clopidogrel Bisulfate (Clopidogrel), 75 MG PO DAILY Isosorbide Mononitrate Ext Rel (Imdur Ext Rel), 60 MG PO DAILY Metoprolol Succ (Toprol Xl) (Toprol-Xl ), 100 MG PO BID Pantoprazole (Pantoprazole Sodium), 40 MG PO BID Penicillin V Potassium (Penicillin V Potassium), 250 MG PO QAM Psyllium (Metamucil), 1 PKT PO DAILY Vitamin B Cmplx/Vitc/Folic Ac (Nephrocaps), 1 CAP PO DAILY Scheduled PRN Oxycodone HCl (Oxycodone HCl), 5 MG PO Q8 PRN for Pain Current Inpatient Medications Current Inpatient Medications Medications (Trade) Dose Ordered Sig/Amanda Route Start Time Stop Time Status Last Admin Dose Admin Aspirin (Ecotrin Tab) 81 mg DAILY PO 08/14/16 09:00 09/13/16 08:59 08/14/16 09:15 81 MG Atorvastatin Calcium (Lipitor Tab) 20 mg HS PO 08/14/16 21:00 09/13/16 20:59 Clopidogrel Bisulfate (plAVix TAB) 75 mg DAILY PO 08/14/16 09:00 09/13/16 08:59 08/14/16 09:15 75 MG Isosorbide Mononitrate (Imdur Ext Rel Tab) 60 mg DAILY PO 08/14/16 09:00 09/13/16 08:59 Future Hold Metoprolol Succinate (Toprol Xl Tab) 100 mg BID PO 08/14/16 09:00 09/13/16 08:59 Future Hold Pantoprazole Sodium (Protonix Tab) 40 mg BID PO 08/14/16 09:00 09/13/16 08:59 08/14/16 09:15 40 MG Vitamin B Complex/ Vit C/Folic Acid (Nephrocaps) 1 cap DAILY PO 08/14/16 09:00 09/13/16 08:59 08/14/16 09:15 1 CAP Cinacalcet (Sensipar) 30 mg QAM PO 08/14/16 09:00 09/13/16 08:59 08/14/16 09:15 30 MG Psyllium Hydrophilic Mucilloid (Metamucil Powder) 1 pkt DAILY PO 08/14/16 09:00 09/13/16 08:59 08/14/16 09:15 1 PKT Oxycodone HCl (Roxicodone Immediate Rel Tab) 5 mg Q4H PRN PO 08/13/16 23:00 08/27/16 22:59 08/14/16 07:39 5 MG Hydromorphone HCl (Dilaudid Inj) 0.5 mg Q3H PRN IV 08/13/16 23:00 08/27/16 22:59 Heparin Sodium (Porcine) (Heparin Sq 5000 Unit/0.5ml) 5,000 unit Q8H SQ 08/14/16 06:00 09/13/16 05:59 08/14/16 05:41 5,000 UNIT Al Hydrox/Mg Hydrox/Simethicone (Maalox Max Susp) 15 ml Q4H PRN PO 08/13/16 23:00 09/12/16 22:59 Magnesium Hydroxide (Milk Of Magnesia Susp) 30 ml Q6H PRN PO 08/13/16 23:00 09/12/16 22:59 Polyethylene (Miralax Powder Packet) 17 gm DAILY PRN PO 08/13/16 23:30 09/12/16 23:29 Zolpidem Tartrate (Ambien Tab) 5 mg HSZ PRN PO 08/13/16 23:00 09/12/16 22:59 Ondansetron HCl 4 mg 4 mg Q6H PRN IV 08/13/16 23:00 09/12/16 22:59 Ertapenem/Sodium Chloride (Invanz Iv/Nss 50ml) 55 ml @ 120 mls/hr Q24H IV 08/14/16 22:00 08/23/16 21:59 Miscellaneous Information 1 ea UD PRN N/A 08/13/16 23:30 09/12/16 23:29 Vancomycin HCl 1 ea 1 ea UD PRN N/A 08/13/16 23:30 09/12/16 23:29 Norepinephrine Bitartrate/ Dextrose (Levophed Inj/ D5W 500ml) 508 ml @ 0 mls/hr Q0M PRN IV 08/14/16 01:43 09/13/16 01:42 08/14/16 02:02 0.1 MLS/HR Heparin Sodium (Porcine) 2000 unit 2,000 unit TODAY@1200 IV 08/14/16 12:00 08/14/16 18:00 Sodium Chloride 1,000 ml @ 0 mls/hr Q0M PRN IV 08/14/16 11:58 08/14/16 18:00 Epoetin Pieter/ Syringe (Procrit Inj/ Syringe) 0.25 ml @ 1 mls/min TODAY@1300 IV. 08/14/16 13:00 08/14/16 18:00 Review of Systems Constitutional: No fever Respiratory: + cough, No dyspnea at rest, No dyspnea on exertion, No shortness of breath, No sputum, No wheezing Cardiovascular: No chest pain Abdomen: + diarrhea (yesterday but has not had it today), + pain, No nausea, No vomiting Musculoskeletal: No joint pain, No muscle pain Genitourinary - Male: + problem reported (anuria) Neurologic: + weakness, No numbness/tingling Endocrine: + fatigue Integumentary: No rash Physical Exam Date Time Temp Pulse Resp B/P Pulse Ox O2 Delivery O2 Flow Rate FiO2 08/14/16 14:15 66 102/46 08/14/16 14:00 66 103/51 08/14/16 13:45 68 96/45 08/14/16 13:15 36.6 67 96/55 08/14/16 11:30 36.7 72 19 94 Nasal Cannula 2.0 08/14/16 11:30 94 Nasal Cannula 1.0 08/14/16 11:13 69 19 111/54 95 08/14/16 11:00 69 19 98 08/14/16 10:58 69 19 118/70 08/14/16 10:45 67 24 93 08/14/16 10:43 68 27 114/64 94 08/14/16 10:30 70 22 94 08/14/16 10:28 70 18 88/49 97 08/14/16 10:15 71 22 95 08/14/16 10:13 70 15 80/46 94 08/14/16 10:11 69 22 84/48 93 08/14/16 10:00 68 15 94 08/14/16 09:59 69 19 117/85 96 08/14/16 09:45 68 21 94 08/14/16 09:43 68 22 111/61 08/14/16 09:30 68 20 98 08/14/16 09:29 68 18 111/64 92 08/14/16 09:15 67 23 97 08/14/16 09:13 68 20 108/81 95 08/14/16 09:00 67 16 97 08/14/16 08:00 Nasal Cannula 08/14/16 07:45 98 Nasal Cannula 1.0 08/14/16 07:45 36.4 71 27 116/69 98 Nasal Cannula 2.0 08/14/16 05:58 71 20 116/65 95 08/14/16 05:43 70 26 116/60 96 08/14/16 05:28 70 16 129/71 96 08/14/16 04:58 70 21 94/65 94 08/14/16 04:43 70 20 104/60 94 08/14/16 04:30 72 21 94 08/14/16 04:28 70 23 105/58 94 08/14/16 04:13 71 19 108/58 95 08/14/16 04:00 98 Nasal Cannula 2.0 08/14/16 04:00 36.5 70 27 104/64 98 Nasal Cannula 2.0 08/14/16 03:30 71 24 97/52 94 Nasal Cannula 2.0 08/14/16 03:13 72 25 97/54 93 08/14/16 02:50 72 25 96 08/14/16 02:45 73 27 96 08/14/16 02:43 72 30 89/47 94 08/14/16 02:43 72 30 89/47 94 08/14/16 02:35 77 29 91 08/14/16 02:33 75 29 87/50 08/14/16 02:33 75 29 87/50 08/14/16 02:30 75 29 92 08/14/16 02:30 Nasal Cannula 2.0 08/14/16 02:30 75 29 92 08/14/16 02:13 71 26 86/58 08/14/16 02:00 70 29 92 08/14/16 01:45 37.5 73 23 71/43 95 08/14/16 01:45 63/41 95 08/14/16 01:33 58/17 08/14/16 01:30 37.5 73 23 71/43 95 08/14/16 01:20 37.5 08/14/16 01:20 37.5 08/14/16 01:10 37.2 73 23 67/38 95 08/14/16 00:50 73 71/43 08/14/16 00:40 73 80/63 08/14/16 00:30 73 73/ 08/14/16 00:29 72 08/14/16 00:20 76 74/42 08/14/16 00:10 75 18 78/51 08/14/16 00:10 70 20 78/51 94 Room Air 08/14/16 00:04 74 18 81/48 96 Room Air 08/13/16 22:00 78 96/53 94 Room Air 08/13/16 21:20 73 18 95/55 93 Room Air 08/13/16 20:37 93 Room Air 08/13/16 19:14 37.3 73 20 95/63 94 Room Air General Appearance: WD/WN, no apparent distress Head: normocephalic, atraumatic Eyes: normal inspection, + pertinent finding Neck: supple Respiratory/Chest: lungs clear, normal breath sounds, no respiratory distress, no accessory muscle use Cardiovascular: regular rate, rhythm, no murmur, + abnormal peripheral pulses ( weak peripheral pulses) Abdomen/GI: normal bowel sounds, + tenderness (RLQ above area of hernia), + pertinent finding (dehicense noted on RUQ, serosanguinous drainage) Back: normal inspection Extremities/Musculoskelatal: normal inspection, no pedal edema, + pertinent finding (multiple old/ new fistula of left UE) Neurologic/Psych: alert, normal mood/affect, oriented x 3 Skin: normal color, no rash, + pertinent finding Laboratory Results Last 24 Hours Test 08/13/16 20:25 08/13/16 20:26 08/14/16 00:00 08/14/16 07:00 White Blood Count 33.65 K/uL Red Blood Count 3.80 M/uL Hemoglobin 11.6 g/dL Hematocrit 34.1 % Mean Corpuscular Volume 89.7 fL Mean Corpuscular Hemoglobin 30.5 pg Mean Corpuscular Hemoglobin Concent 34.0 g/dl Platelet Count 239 K/uL Mean Platelet Volume 11.6 fL Neutrophils (%) (Auto) 83.8 % Lymphocytes (%) (Auto) 8.3 % Monocytes (%) (Auto) 6.4 % Eosinophils (%) (Auto) 0.2 % Basophils (%) (Auto) 0.2 % Neutrophils # (Auto) 28.18 K/uL Lymphocytes # (Auto) 2.78 K/uL Monocytes # (Auto) 2.16 K/uL Eosinophils # (Auto) 0.08 K/uL Basophils # (Auto) 0.07 K/uL RDW Standard Deviation 58.0 fL RDW Coefficient of Variation 18.4 % Immature Granulocyte % (Auto) 1.1 % Immature Granulocyte # (Auto) 0.38 K/uL Nucleated RBC Absolute Count (auto) 0.26 K/uL Nucleated Red Blood Cells % 0.8 % Toxic Vacuolation 2+ Pappenheimer Bodies 1+ Target Cells 1+ Prothrombin Time 16.1 SECONDS Prothromb Time International Ratio 1.5 Activated Partial Thromboplast Time 46.2 SECONDS Partial Thromboplastin Ratio 1.8 Sodium Level 135 mmol/L Potassium Level 4.2 mmol/L Chloride Level 93 mmol/L Carbon Dioxide Level 27 mmol/L Anion Gap 14.0 mmol/L Blood Urea Nitrogen 35 mg/dl Creatinine 6.10 mg/dl 6.50 mg/dl Est Creatinine Clear Calc Drug Dose 12.5 ml/min 11.6 ml/min Estimated GFR () 11.4 10.5 Estimated GFR (Non- 9.8 9.1 BUN/Creatinine Ratio 5.9 Random Glucose 87 mg/dl Calcium Level 8.9 mg/dl Total Bilirubin 3.2 mg/dl Aspartate Amino Transf (AST/SGOT) 27 U/L Alanine Aminotransferase (ALT/SGPT) 14 U/L Alkaline Phosphatase 332 U/L Total Protein 7.5 gm/dl Albumin 2.0 gm/dl Globulin 5.5 gm/dl Albumin/Globulin Ratio 0.4 Lipase 32 U/L Bedside Lactic Acid Venous 4.16 mmol/L Influenza Type A (RT-PCR) Neg for Influ A Influenza Type B (RT-PCR) Neg for Influ B Random Vancomycin Level 25.0 mcg/ml Test 08/14/16 10:35 08/14/16 11:02 08/14/16 12:58 White Blood Count 29.42 K/uL Red Blood Count 3.43 M/uL Hemoglobin 10.6 g/dL Hematocrit 30.8 % Mean Corpuscular Volume 89.8 fL Mean Corpuscular Hemoglobin 30.9 pg Mean Corpuscular Hemoglobin Concent 34.4 g/dl RDW Standard Deviation 58.7 fL RDW Coefficient of Variation 18.8 % Platelet Count 218 K/uL Mean Platelet Volume 11.7 fL Nucleated RBC Absolute Count (auto) 0.30 K/uL Nucleated Red Blood Cells % 1.0 % Sodium Level 135 mmol/L Potassium Level 4.5 mmol/L Chloride Level 96 mmol/L Carbon Dioxide Level 24 mmol/L Anion Gap 15.0 mmol/L Blood Urea Nitrogen 44 mg/dl Creatinine 6.60 mg/dl Est Creatinine Clear Calc Drug Dose 11.5 ml/min Estimated GFR () 10.3 Estimated GFR (Non- 8.9 BUN/Creatinine Ratio 6.7 Random Glucose 71 mg/dl Lactic Acid Level 4.0 mmol/L 3.4 mmol/L Calcium Level 8.4 mg/dl Total Bilirubin 3.1 mg/dl Aspartate Amino Transf (AST/SGOT) 84 U/L Alanine Aminotransferase (ALT/SGPT) 18 U/L Alkaline Phosphatase 260 U/L Total Protein 6.2 gm/dl Albumin 1.7 gm/dl Globulin 4.5 gm/dl Albumin/Globulin Ratio 0.4 Random Cortisol 20.77 mcg/dl Ionized Calcium 1.01 mmol/l Diagnostic Results [~ rep ct add3]] CT OF THE ABDOMEN AND PELVIS WITHOUT CONTRAST, STONE PROTOCOL CLINICAL HISTORY: Abdominal pain. Sepsis. Evaluate for ascites. COMPARISON STUDY: CT of the abdomen and pelvis June 26, 2016. TECHNIQUE: Helical axial images of the abdomen and pelvis were obtained without IV or oral contrast according to renal stone protocol. FINDINGS: The heart is moderately enlarged. Calcification within the wall of the right ventricle is noted. This is unchanged. There is also calcification along the liver capsule and within a right abdominal hernia sac along the abdominal wall. A small amount of ascites is noted. There is generalized anasarca which has increased since prior exam. Evaluation of the abdomen and pelvis is suboptimal on this unenhanced exam. The spleen is not visualized. Numerous moderately enlarged retroperitoneal lymph nodes are unchanged since exam of June 26, 2016. These measure up to 1.9 cm. 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 This contains multiple small bowel loops. There is no evidence for a bowel obstruction. Bilateral lower quadrant renal allografts are noted. There is extensive vascular calcification. The appearance of the allograft is unchanged and prior exam of June 26, 2016. No pneumatosis, free air or portal venous gas is present. Enlarged iliac lymph nodes are unchanged no suspicious skeletal lesions are identified. IMPRESSION: 1. Suboptimal evaluation of the abdomen and pelvis given the lack of IV and oral contrast. 2. Generalized anasarca and a small amount of abdominal and pelvic ascites which has increased since CT of June 26, 2016. 3. Moderate abdominal and pelvic lymphadenopathy. This is similar to prior CT but mildly increased since earlier exams. This is nonspecific and could reflect a lymphoproliferative process or be reactive. 4. Redemonstration of multifocal calcifications within the abdomen. This is nonspecific although could be related to renal failure. 5. Extensive atherosclerotic calcification with suspected occlusion of the right common iliac artery. 6. Cirrhotic liver. 7. Sided abdominal hernia which may reflect a Spigelian which contains multiple loops of small bowel. No bowel obstruction. CHEST ONE VIEW PORTABLE CLINICAL HISTORY: Sepsis. COMPARISON STUDY: Chest radiograph June 26, 2016. FINDINGS: No pneumothorax or pleural effusion is present. There are median sternotomy wires. Moderate enlargement of the cardiac silhouette is unchanged. There is no evidence of pulmonary edema. The appearance of the chest is unchanged. IMPRESSION: No acute cardiopulmonary findings. Stable cardiomegaly. Assessment & Plan 1. Sepsis with bacteremia most likely secondary to beta hemolytic strep, source is unknown 2. Hypotension, undifferentiated; sepsis vs adrenal insuff vs hypovolemia 3. Cirrhosis of liver; MELD - 29 points 4. ESRD 5. Hyponatremia 6. Chronic CHF EF 40% 7. Spigelian Hernia 8. Prolonged QTc 9. Dehiscence of wound NVS -mentating well, alert and oriented x 3 - roxicodon and dilaudid for pain control CVS - Levophed for bp control- currently at .12 - did attempt to stress dose patient in an attempt to wean levophed but minimally responsive to 100 mg - echo repeat considering CHF and suffering from hypotension - EKG revealed QTc 503 - repeat in am - continue to monitor - difficult to access for blood draws and have to draw from foot - hold isosorbide and toprol for now RVS - stable, no acute changes on CXR - O2 by nuing protocol RENAL - Nephro consult- appreciate input - plan is dialysis today - continue to monitor BMP - strict I*&O and daily weights - continue ESRD medications as per nephrology GI - Currently NPO while on Pressors - daily LFT considering h/o shock liver and known cirrhosis - protonix 40 mg bid ID - Currently on Vanco and Ertapenem - ID consulted- appreciate input - wound consult - wound culture pending - repeat blood cultures pending - influenza negative - MRSA negative ELECTROLYTES - recheck electrolytes after dialysis HEME - considering profound immunologic history with transplants there is always concern for lymphproliferative disease with such a high white count - follow cbc - pending globulin and immunology testing DVT PROPHYLAXIS - - heparin tid FULL CODE Resident Physician Supervision Note: Dr. Jensen was resident physician during care of patient. I separately evaluated patient and did history and exam. I discussed the case with the resident and generally agree with the findings and plan. Patient has severe sepsis, patient did not desire a central line, and opted to have his vasoactive medications continued to be administered through a peripheral IV line. We were however able to take him off the vasoactive medications once we gave him some stress dose steroids. Patient also received dialysis today. Patient is very complex Dr. Azevedo is working up a probable myelodysplastic syndrome. Of course the day the patient's lactic acidosis did improve prior to dialysis. At this point continuing with the current antibiotic regimen. Discussed the case specifically with Dr. Azevedo. I have personally spent 40 minutes of critical care time in the direct management of this patient. This is a life/limb threatening event. This includes time spent evaluating patient, direct bedside care, chart review, placing orders, interpretation of diagnostic studies, discussion with consultants, patient, and family members, as well as other required patient management activities. This time is exclusive of all separately billable procedures, and teaching time and separate from and in addition to any other critical care service time. Documented By: Allan Beltran, DO Additional Copies To Todd Azevedo M.D.
--- NOTE | 2016-08-14 15:41 | ECHOCARDIOGRAM REPORT ---
*NOTICE TO RECEIVING [employer] This information is strictly Confidential and protected under [place] law. [place] law prohibits you from making any further disclosure of this information unless further disclosure is expressly permitted by the written consent of the person to whom it pertains or is authorized by law. A general authorization for the release of medical or other information is not sufficient for this purpose. Hospital accepts no responsibility if the information is made available to any other person, INCLUDING THE PATIENT. Interpretation Summary * Name: FOSTER RENE Study Date: 08/14/2016 12:08 PM BP: 111/54 mmHg * Patient Location: .MSICU\S\E103\S\1 HR: 68 * : 1965 (M/d/yyyy) Gender: Male Height: 66 in * Age: 51 yrs Ethnicity: [place] Weight: 133 lb * Ordering Physician: Erika Jensen * Referring Physician: Self, Referred * Performed By: Namrata Alfaro [facility] * * Reason For Study: HYPOTENSION * BSA: 1.7 m2 * -- Conclusions -- * 1. Normal LV size. Mild concentric LVH. * 2. Mild LV dysfunction. LVEF 45-50%. Mid anteroseptal and apical segement severe hypokinesis. * 3. Grade I diastolic dysfunction. * 4. Mild aortic valve sclerosis without stenosis. * 5. Moderate tricuspid regurgitation. * 6. Mildly dilated ascending aorta. * 7. Compared with prior study on 12/04/2015: No significant changes. Procedure Details * A complete two-dimensional transthoracic echocardiogram was performed (2D, M-mode, Doppler and color flow Doppler). Left Ventricle * The left ventricle is grossly normal size. * There is mild concentric left ventricular hypertrophy. * Ejection Fraction = 45-50%. * There is severe apical wall hypokinesis. * There is severe septal hypokinesis. Right Ventricle * The right ventricle is not well visualized. Atria * The left atrial size is normal. * Right atrium not well visualized. * The right atrium is mildly dilated. * No ASD detected; PFO is not assessed. Mitral Valve * The mitral valve is grossly normal. * There is mild mitral annular calcification. * There is no mitral valve stenosis. * There is trace mitral regurgitation. Tricuspid Valve * The tricuspid valve is not well visualized, but is grossly normal. * There is no tricuspid stenosis. * There is moderate tricuspid regurgitation. Aortic Valve * The aortic valve opens well. * Aortic valve sclerosis mild, without significant aortic valvular stenosis. * There is no significant aortic regurgitation. Pulmonic Valve * The pulmonic valve is not well seen, but is grossly normal. * There is no pulmonic valvular stenosis. * Trace pulmonic valvular regurgitation. Great Vessels * Mildly dilated ascending aorta. Pericardium/Pleural * There is no pericardial effusion. Great Vessels * Not well visualized Left Ventricular Diastolic Function * Grade I diastolic dysfunction, (abnormal relaxation pattern). MMode 2D Measurements and Calculations IVSd 1.3 cm IVSs 1.7 cm LVIDd 6.1 cm LVPWd 0.98 cm IVS/LVPW 1.3 EDV(Teich) 183.9 ml EDV(cubed) 222.2 ml % IVS thick 35.1 % LV mass(C)d 295.9 grams LV mass(C)dI 176.0 grams/m\S\2 Ao root diam 4.0 cm Ao root area 12.6 cm\S\2 ACS 1.9 cm LA dimension 4.4 cm LA/Ao 1.1 LVOT diam 1.9 cm LVOT area 3.0 cm\S\2 Doppler Measurements and Calculations MV E max parker 117.0 cm/sec MV A max parker 118.1 cm/sec MV E/A 0.99 MV P1/2t max parker 121.2 cm/sec MV P1/2t 82.7 msec MVA(P1/2t) 2.7 cm\S\2 MV dec slope 429.3 cm/sec\S\2 MV dec time 0.30 sec Ao V2 max 202.9 cm/sec Ao max PG 16.5 mmHg Ao max PG (full) 11.5 mmHg JAN(V,A) 1.6 cm\S\2 JAN(V,D) 1.6 cm\S\2 LV V1 max PG 5.0 mmHg LV V1 max 111.6 cm/sec MR max parker 423.2 cm/sec MR max PG 71.6 mmHg TR max parker 236.6 cm/sec
[2016-08-14] MEDS ORDERED: NURSING VERBAL MED ORDER ONE (20:30)
[2016-08-14] MEDS: ATORVASTATIN 20 MG TAB PO SCH (20:52)
[2016-08-14] MEDS: HYDROCORTISONE IV 100 MG in SYRINGE 0 ML IV SCH (21:40)
[2016-08-14] MEDS: ERTAPENEM IV 500 MG in SODIUM CHLORIDE 0.9% 50ML 50 ML IV SCH (21:40)
[2016-08-15] VITALS (14 sets, daily range): BP systolic 76–107; BP diastolic 38–64; PULSE 67–77; TEMP 36.3–36.7; O2SAT 91–97
[2016-08-15] MEDS ORDERED: SODIUM CHLORIDE 0.9% 250ML 250 ML IV SCH (01:00)
[2016-08-15] MEDS: HYDROCORTISONE IV 100 MG in SYRINGE 0 ML IV SCH ×2 (05:07→14:06)
[2016-08-15 05:40] LABS: HEMATOCRIT 35.7 % (42-52); MEAN CELL VOLUME 89.3 fL (80-100); MEAN CORPUSCULAR HEMOGLOBIN 30.5 pg (25-34); MEAN CORPUSCULAR HGB CONC 34.2 g/dl (32-36); MEAN PLATELET VOLUME 12.1 fL (7.4-10.4); PLATELET COUNT 260 K/uL (130-400); WHITE BLOOD COUNT 32.45 K/uL (4.8-10.8)
[2016-08-15] MEDS: HEPARIN SOD 5000 UNIT/0.5 ML CARP SQ SCH ×3 (06:00→21:48)
[2016-08-15 06:21] LABS: CREATININE 3.5 mg/dl (0.60-1.40)
[2016-08-15] MEDS: HYDROmorphone INJ 0.5 MG/0.5 ML SYR IV PRN ×2 (10:18→21:47)
[2016-08-15] MEDS: NEPHROCAPS PO SCH (11:24)
[2016-08-15] MEDS: PSYLLIUM 58.6% PWD PACK S\\F PO SCH (11:24)
[2016-08-15] MEDS: CINACALCET 30 MG TAB PO SCH (11:24)
[2016-08-15] MEDS: ASPIRIN 81 MG ECTAB PO SCH (11:24)
[2016-08-15] MEDS: CLOPIDOGREL BISULFATE 75 MG TAB PO SCH (11:24)
[2016-08-15] MEDS: PANTOprazole SOD 40 MG TAB PO SCH ×2 (11:24→20:34)
--- NOTE | 2016-08-15 11:56 | Nephrology Progress Note ---
Nephrology Progress Note Date of Service Aug 15, 2016. Chief Complaint ESRD Subjective Mr. Segura was seen and evaluated in his hospital room this morning. He tolerated hemodialysis yesterday without complications. He is sitting comfortably in bed but notes pain associated with probing of his abdominal wound this morning. RLQ pain has improved slightly. He describes serous drainage from the wound without surrounding redness of infusions. No fevers or chills. Plan of care was discussed with Dr. Beltran this morning. Denies shortness of breath. Blood pressure stable off levophed gtt. Review of Systems A complete review of systems was performed. Pertinent positives are noted above. All other systems are negative. Vital Signs Last 8 Hrs Date Time Temp Pulse Resp B/P Pulse Ox O2 Delivery O2 Flow Rate FiO2 08/15/16 10:00 71 19 107/50 92 Nasal Cannula 2.0 08/15/16 08:00 91 Nasal Cannula 2.0 08/15/16 08:00 36.5 69 18 99/52 91 Room Air 08/15/16 06:00 67 20 87/58 93 Room Air 08/15/16 04:15 99/54 08/15/16 04:00 36.7 70 18 78/38 95 Nasal Cannula 2.0 08/15/16 04:00 Nasal Cannula 2.0 I & O 24-Hour Column 08/15/16 08:00 Intake Total 50 ml Output Total 0 ml Balance 50 ml Last Recorded Weight Weight (Kilograms): 60.200 Physical Exam General Appearance: no apparent distress, + thin Head: normocephalic, atraumatic Eyes: normal inspection, sclerae normal ENT: normal ENT inspection, + pertinent finding (oral mucosa slightly dry) Neck: supple, no JVD Respiratory/Chest: lungs clear, no respiratory distress, no accessory muscle use Cardiovascular: regular rate, rhythm, no gallop Abdomen/GI: soft, + pertinent finding (dressing CDI) Extremities/Musculoskelatal: normal inspection, no pedal edema, + pertinent finding (AVF with thrill and bruit) Neurologic/Psych: alert, oriented x 3 Family History FH: heart disease Social History Smoking Status: Never smoker Smokeless Tobacco Use: No Alcohol Use: none Drug Use: none Marital Status: Housing Status: lives with family Occupation: employed, disabled Laboratory Results Past 24 Hours 08/15/16 05:20 1/21/17 05:20 Test 08/14/16 12:58 08/14/16 16:13 08/14/16 22:38 08/15/16 05:20 Lactic Acid Level 3.4 mmol/L (0.4-2.0) 3.2 mmol/L (0.4-2.0) Procalcitonin 64.13 ng/mL (0-0.5) Bedside Glucose 98 mg/dl (70-99) Red Blood Count 4.00 M/uL (4.7-6.1) Mean Corpuscular Volume 89.3 fL (80-100) Mean Corpuscular Hemoglobin 30.5 pg (25-34) Mean Corpuscular Hemoglobin Concent 34.2 g/dl (32-36) RDW Standard Deviation 58.9 fL (36.4-46.3) RDW Coefficient of Variation 18.9 % (11.5-14.5) Mean Platelet Volume 12.1 fL (7.4-10.4) Nucleated RBC Absolute Count (auto) 0.58 K/uL (0-0) Nucleated Red Blood Cells % 1.7 % Est Creatinine Clear Calc Drug Dose 22.0 ml/min Estimated GFR () 22.3 Estimated GFR (Non- 19.2 Total Bilirubin 2.5 mg/dl (0.2-1) Direct Bilirubin 1.8 mg/dl (0-0.2) Aspartate Amino Transf (AST/SGOT) 68 U/L (15-37) Alanine Aminotransferase (ALT/SGPT) 21 U/L (12-78) Alkaline Phosphatase 222 U/L (45-117) Total Protein 5.9 gm/dl (6.4-8.2) Albumin 1.5 gm/dl (3.4-5.0) Random Vancomycin Level 18.4 mcg/ml Test 08/15/16 05:50 Lactic Acid Level 3.0 mmol/L (0.4-2.0) Allergies Coded Allergies: POLLEN (Verified Allergy, Unknown, "HAYFEVER", 08/13/16) Diazoxide (Verified Adverse Reaction, Intermediate, ELEVATE BP;N&V, ) NSAIDs (Verified Adverse Reaction, Unknown, KIDNEY TRANSPLANT, 08/13/16) Medications Current Inpatient Medications Medications (Trade) Dose Ordered Sig/Amanda Route Start Time Stop Time Status Last Admin Dose Admin Aspirin (Ecotrin Tab) 81 mg DAILY PO 08/14/16 09:00 09/13/16 08:59 08/15/16 11:24 81 MG Atorvastatin Calcium (Lipitor Tab) 20 mg HS PO 08/14/16 21:00 09/13/16 20:59 08/14/16 20:52 20 MG Clopidogrel Bisulfate (plAVix TAB) 75 mg DAILY PO 08/14/16 09:00 09/13/16 08:59 08/15/16 11:24 75 MG Isosorbide Mononitrate (Imdur Ext Rel Tab) 60 mg DAILY PO 08/14/16 09:00 09/13/16 08:59 Future Hold Metoprolol Succinate (Toprol Xl Tab) 100 mg BID PO 08/14/16 09:00 09/13/16 08:59 Future Hold Pantoprazole Sodium (Protonix Tab) 40 mg BID PO 08/14/16 09:00 09/13/16 08:59 08/15/16 11:24 40 MG Vitamin B Complex/ Vit C/Folic Acid (Nephrocaps) 1 cap DAILY PO 08/14/16 09:00 09/13/16 08:59 08/15/16 11:24 1 CAP Cinacalcet (Sensipar) 30 mg QAM PO 08/14/16 09:00 09/13/16 08:59 08/15/16 11:24 30 MG Psyllium Hydrophilic Mucilloid (Metamucil Powder) 1 pkt DAILY PO 08/14/16 09:00 09/13/16 08:59 08/15/16 11:24 1 PKT Oxycodone HCl (Roxicodone Immediate Rel Tab) 5 mg Q4H PRN PO 08/13/16 23:00 08/27/16 22:59 08/14/16 23:18 5 MG Hydromorphone HCl (Dilaudid Inj) 0.5 mg Q3H PRN IV 08/13/16 23:00 08/27/16 22:59 08/15/16 10:18 0.5 MG Heparin Sodium (Porcine) (Heparin Sq 5000 Unit/0.5ml) 5,000 unit Q8H SQ 08/14/16 06:00 09/13/16 05:59 08/14/16 20:55 5,000 UNIT Al Hydrox/Mg Hydrox/Simethicone (Maalox Max Susp) 15 ml Q4H PRN PO 08/13/16 23:00 09/12/16 22:59 Magnesium Hydroxide (Milk Of Magnesia Susp) 30 ml Q6H PRN PO 08/13/16 23:00 09/12/16 22:59 Polyethylene (Miralax Powder Packet) 17 gm DAILY PRN PO 08/13/16 23:30 09/12/16 23:29 Zolpidem Tartrate (Ambien Tab) 5 mg HSZ PRN PO 08/13/16 23:00 09/12/16 22:59 Ondansetron HCl 4 mg 4 mg Q6H PRN IV 08/13/16 23:00 09/12/16 22:59 Ertapenem/Sodium Chloride (Invanz Iv/Nss 50ml) 55 ml @ 120 mls/hr Q24H IV 08/14/16 22:00 08/23/16 21:59 08/14/16 21:40 120 MLS/HR Miscellaneous Information 1 ea UD PRN N/A 08/13/16 23:30 09/12/16 23:29 Vancomycin HCl 1 ea 1 ea UD PRN N/A 08/13/16 23:30 09/12/16 23:29 Norepinephrine Bitartrate 8 mg/ Dextrose 508 ml @ 0 mls/hr Q0M PRN IV 08/14/16 01:43 09/13/16 01:42 08/14/16 15:13 0.12 MLS/HR Hydrocortisone Sodium Succinate/ Syringe (Solu-Cortef IV/ Syringe) 2 ml @ 4 mls/min Q8H IV 08/14/16 21:00 09/13/16 20:59 08/15/16 05:07 4 MLS/MIN Impression (1) End-stage renal disease on hemodialysis (2) Chronic systolic CHF (congestive heart failure) (3) CAD (coronary artery disease) (4) Liver cirrhosis (5) HTN (hypertension) (6) Bacteremia (7) Sepsis (8) Immunosuppression Mr. Segura is showing signs of clinical improvement regarding sepsis with beta- hemolytic strep bacteremia. I did not assess his wound this morning for his comfort and wound recently being assessed by wound care. Systemic signs of infection improved with persistent leukocytosis. He does remain on stress dose steroids. Clinically he does report improvement. Volume status appropriate. Tolerated HD well yesterday. Recommendations -- Blood pressure and volume status appropriate -- Tolerated HD yesterday -- Repeat renal profile tomorrow AM -- Medications appropriately dosed for renal function -- Continue to monitor serum lactic acid for improvement -- SPEP/immunofixation pending
[2016-08-15] MEDS ORDERED: VANCOMYCIN INJ 500 MG in SODIUM CHLORIDE 0.9% 250ML 250 ML IV ONE (14:30)
--- NOTE | 2016-08-15 14:49 | Critical Care Progress Note ---
Critical Care Progress Note Date of Service Aug 15, 2016. ICU Day ICU Day Number: [address] Beltran Subjective Patient feels much better than yesterday. No chest pain or shortness of breath , improving abdominal pain Objective Constitutional: No fever Respiratory: + cough, No dyspnea at rest, No dyspnea on exertion, No shortness of breath, No sputum, No wheezing Cardiovascular: No chest pain Abdomen: I examined the abdominal wound appears her may be a fistulous tract but there is no significant erythema nor tenderness surrounding the area to suspect necrotizing fasciitis. Musculoskeletal: No joint pain, No muscle pain Genitourinary - Male: + problem reported (anuria) Neurologic: + weakness, No numbness/tingling Endocrine: + fatigue Integumentary: No rash Assessment & Plan 1. Sepsis with bacteremia most likely secondary to beta hemolytic strep, source is unknown 2. Hypotension, undifferentiated; sepsis vs adrenal insuff vs hypovolemia 3. Cirrhosis of liver; MELD - 29 points 4. ESRD 5. Hyponatremia 6. Chronic CHF EF 40% 7. Spigelian Hernia 8. Prolonged QTc 9. Dehiscence of wound NVS -mentating well, alert and oriented x 3 - roxicodon and dilaudid for pain control CVS - Levophed remained off for greater than 24 hours - Echocardiogram read reviewed, EF 45-50% - EKG prolonged QT - continue to monitor - difficult to access for blood draws and have to draw from foot - hold isosorbide and toprol for now RVS - stable, no acute changes on CXR - O2 by nuing protocol RENAL - Nephro consult- appreciate input - continue to monitor BMP - continue ESRD medications as per nephrology GI - Currently NPO while on Pressors - daily LFT considering h/o shock liver and known cirrhosis - protonix 40 mg bid ID - Currently on Vanco and Ertapenem - ID consulted- appreciate input - wound consult Still awaiting further identification and sensitivities of the group a beta hemolytic strep - influenza negative - MRSA negative Endocrine -Started 100 mg hydrocortisone 3 times a day yesterday decreased to 75 mg today hoping to rapidly wane HEME - considering profound immunologic history with transplants there is always concern for lymphproliferative disease with such a high white count - follow cbc - pending globulin and immunology testing DVT PROPHYLAXIS - - heparin tid FULL CODE Patient has remained stable off pressors greater than 24 hours, stable to downgraded to telemetry status Data Medications: Current Inpatient Medications Medications (Trade) Dose Ordered Sig/Amanda Route Start Time Stop Time Status Last Admin Dose Admin Aspirin (Ecotrin Tab) 81 mg DAILY PO 08/14/16 09:00 09/13/16 08:59 08/15/16 11:24 81 MG Atorvastatin Calcium (Lipitor Tab) 20 mg HS PO 08/14/16 21:00 09/13/16 20:59 08/14/16 20:52 20 MG Clopidogrel Bisulfate (plAVix TAB) 75 mg DAILY PO 08/14/16 09:00 09/13/16 08:59 08/15/16 11:24 75 MG Isosorbide Mononitrate (Imdur Ext Rel Tab) 60 mg DAILY PO 08/14/16 09:00 09/13/16 08:59 Future Hold Metoprolol Succinate (Toprol Xl Tab) 100 mg BID PO 08/14/16 09:00 09/13/16 08:59 Future Hold Pantoprazole Sodium (Protonix Tab) 40 mg BID PO 08/14/16 09:00 09/13/16 08:59 08/15/16 11:24 40 MG Vitamin B Complex/ Vit C/Folic Acid (Nephrocaps) 1 cap DAILY PO 08/14/16 09:00 09/13/16 08:59 08/15/16 11:24 1 CAP Cinacalcet (Sensipar) 30 mg QAM PO 08/14/16 09:00 09/13/16 08:59 08/15/16 11:24 30 MG Psyllium Hydrophilic Mucilloid (Metamucil Powder) 1 pkt DAILY PO 08/14/16 09:00 09/13/16 08:59 08/15/16 11:24 1 PKT Oxycodone HCl (Roxicodone Immediate Rel Tab) 5 mg Q4H PRN PO 08/13/16 23:00 08/27/16 22:59 08/14/16 23:18 5 MG Hydromorphone HCl (Dilaudid Inj) 0.5 mg Q3H PRN IV 08/13/16 23:00 08/27/16 22:59 08/15/16 10:18 0.5 MG Heparin Sodium (Porcine) (Heparin Sq 5000 Unit/0.5ml) 5,000 unit Q8H SQ 08/14/16 06:00 09/13/16 05:59 08/15/16 14:07 5,000 UNIT Al Hydrox/Mg Hydrox/Simethicone (Maalox Max Susp) 15 ml Q4H PRN PO 08/13/16 23:00 09/12/16 22:59 Magnesium Hydroxide (Milk Of Magnesia Susp) 30 ml Q6H PRN PO 08/13/16 23:00 09/12/16 22:59 Polyethylene (Miralax Powder Packet) 17 gm DAILY PRN PO 08/13/16 23:30 09/12/16 23:29 Zolpidem Tartrate (Ambien Tab) 5 mg HSZ PRN PO 08/13/16 23:00 09/12/16 22:59 Ondansetron HCl 4 mg 4 mg Q6H PRN IV 08/13/16 23:00 09/12/16 22:59 Ertapenem/Sodium Chloride (Invanz Iv/Nss 50ml) 55 ml @ 120 mls/hr Q24H IV 08/14/16 22:00 08/23/16 21:59 08/14/16 21:40 120 MLS/HR Miscellaneous Information 1 ea UD PRN N/A 08/13/16 23:30 09/12/16 23:29 Vancomycin HCl 1 ea 1 ea UD PRN N/A 08/13/16 23:30 09/12/16 23:29 Norepinephrine Bitartrate 8 mg/ Dextrose 508 ml @ 0 mls/hr Q0M PRN IV 08/14/16 01:43 09/13/16 01:42 08/14/16 15:13 0.12 MLS/HR Hydrocortisone Sodium Succinate 100 mg/Syringe 2 ml @ 4 mls/min Q8H IV 08/14/16 21:00 09/13/16 20:59 08/15/16 14:06 4 MLS/MIN Vancomycin HCl/ Sodium Chloride (Vancomycin Inj/ Nss 250ml) 260 ml @ 125 mls/hr TODAY@1430 ONCE IV 08/15/16 14:30 08/15/16 16:34 I & O: 24-Hour Column 08/15/16 08:00 Intake Total 50 ml Output Total 0 ml Balance 50 ml Vital Signs: Date Time Temp Pulse Resp B/P Pulse Ox O2 Delivery O2 Flow Rate FiO2 08/15/16 12:00 97 Nasal Cannula 2.0 08/15/16 12:00 36.5 75 18 106/57 97 Nasal Cannula 2.0 08/15/16 10:00 71 19 107/50 92 Nasal Cannula 2.0 08/15/16 08:00 91 Nasal Cannula 2.0 08/15/16 08:00 36.5 69 18 99/52 91 Room Air 08/15/16 06:00 67 20 87/58 93 Room Air 08/15/16 04:15 99/54 08/15/16 04:00 36.7 70 18 78/38 95 Nasal Cannula 2.0 08/15/16 04:00 Nasal Cannula 2.0 08/15/16 02:00 68 20 94/47 93 Nasal Cannula 2.0 08/15/16 00:01 36.6 70 18 76/49 95 Nasal Cannula 2.0 08/14/16 23:59 Nasal Cannula 2.0 08/14/16 22:00 74 15 80/48 95 Nasal Cannula 2.0 08/14/16 20:00 94 Nasal Cannula 2.0 08/14/16 20:00 36.6 71 18 85/49 99 Nasal Cannula 2.0 08/14/16 18:30 71 22 81/50 93 08/14/16 18:15 36.8 72 16 93/53 98 08/14/16 18:15 68 22 93 08/14/16 18:13 72 22 93/53 100 08/14/16 18:00 75 24 95 08/14/16 17:58 75 18 96/53 99 08/14/16 17:50 36.4 72 98/55 08/14/16 17:47 71 22 98/55 100 08/14/16 17:45 67 17 98 08/14/16 17:43 70 18 93/51 100 08/14/16 17:42 70 18 91/51 99 08/14/16 17:30 68 87/47 08/14/16 17:30 68 23 98 08/14/16 17:28 66 15 87/47 99 08/14/16 17:15 66 15 99 08/14/16 17:15 68 85/45 08/14/16 17:13 76 19 84/50 98 08/14/16 17:00 71 18 98 08/14/16 17:00 68 85/45 08/14/16 16:58 67 22 85/45 97 08/14/16 16:45 71 81/49 08/14/16 16:45 73 16 99 08/14/16 16:43 71 18 81/49 99 08/14/16 16:30 62 72/42 08/14/16 16:30 69 16 98 08/14/16 16:30 69 16 98 08/14/16 16:28 71 19 72/42 96 08/14/16 16:27 62 69/42 08/14/16 16:25 72 17 69/42 96 08/14/16 16:21 62 77/45 08/14/16 16:19 71 17 77/45 88 08/14/16 16:15 62 66/44 08/14/16 16:15 71 18 93 08/14/16 16:14 70 18 66/44 08/14/16 16:05 59 21 161/81 99 08/14/16 16:00 98 Nasal Cannula 2.0 08/14/16 16:00 36.6 58 19 98 Room Air 08/14/16 16:00 62 161/81 08/14/16 15:59 61 19 08/14/16 15:45 65 20 92 08/14/16 15:45 71 91/50 08/14/16 15:43 64 15 91/50 95 08/14/16 15:30 65 20 95 08/14/16 15:30 66 89/50 08/14/16 15:30 65 20 95 08/14/16 15:28 66 20 89/50 95 08/14/16 15:15 66 17 98 08/14/16 15:15 65 99/53 08/14/16 15:13 67 14 99/53 98 08/14/16 15:00 63 95/54 08/14/16 15:00 65 21 97 08/14/16 14:58 65 20 95/54 99 08/14/16 14:45 64 88/47 08/14/16 14:45 64 18 99 08/14/16 14:43 64 20 88/47 96 Laboratory Results: Last 24 Hours Test 08/14/16 16:13 08/14/16 22:38 08/15/16 05:20 08/15/16 05:50 Bedside Glucose 98 mg/dl Lactic Acid Level 3.2 mmol/L 3.0 mmol/L White Blood Count 32.45 K/uL Red Blood Count 4.00 M/uL Hemoglobin 12.2 g/dL Hematocrit 35.7 % Mean Corpuscular Volume 89.3 fL Mean Corpuscular Hemoglobin 30.5 pg Mean Corpuscular Hemoglobin Concent 34.2 g/dl RDW Standard Deviation 58.9 fL RDW Coefficient of Variation 18.9 % Platelet Count 260 K/uL Mean Platelet Volume 12.1 fL Nucleated RBC Absolute Count (auto) 0.58 K/uL Nucleated Red Blood Cells % 1.7 % Creatinine 3.50 mg/dl Est Creatinine Clear Calc Drug Dose 22.0 ml/min Estimated GFR () 22.3 Estimated GFR (Non- 19.2 Total Bilirubin 2.5 mg/dl Direct Bilirubin 1.8 mg/dl Aspartate Amino Transf (AST/SGOT) 68 U/L Alanine Aminotransferase (ALT/SGPT) 21 U/L Alkaline Phosphatase 222 U/L Total Protein 5.9 gm/dl Albumin 1.5 gm/dl Random Vancomycin Level 18.4 mcg/ml
--- NOTE | 2016-08-15 17:14 | Hospitalist Progress Note ---
Hospitalist Progress Note Date of Service Aug 15, 2016. Subjective Pt evaluation today including: conversation w/ patient, conversation w/ family , physical exam, chart review, lab review, review of studies, review of inpatient medication list feeling much better comparing yesterday, no SOB, no nausea, no vomiting, mild abdominal pain Objective Vital Signs Date Time Temp Pulse Resp B/P Pulse Ox O2 Delivery O2 Flow Rate FiO2 08/15/16 16:00 92 Room Air 08/15/16 16:00 36.5 71 14 89/49 92 Room Air 08/15/16 14:00 73 16 93/52 94 Nasal Cannula 2.0 08/15/16 12:00 97 Nasal Cannula 2.0 08/15/16 12:00 36.5 75 18 106/57 97 Nasal Cannula 2.0 08/15/16 10:00 71 19 107/50 92 Nasal Cannula 2.0 08/15/16 08:00 91 Nasal Cannula 2.0 08/15/16 08:00 36.5 69 18 99/52 91 Room Air 08/15/16 06:00 67 20 87/58 93 Room Air 08/15/16 04:15 99/54 08/15/16 04:00 36.7 70 18 78/38 95 Nasal Cannula 2.0 08/15/16 04:00 Nasal Cannula 2.0 08/15/16 02:00 68 20 94/47 93 Nasal Cannula 2.0 08/15/16 00:01 36.6 70 18 76/49 95 Nasal Cannula 2.0 08/14/16 23:59 Nasal Cannula 2.0 08/14/16 22:00 74 15 80/48 95 Nasal Cannula 2.0 08/14/16 20:00 94 Nasal Cannula 2.0 08/14/16 20:00 36.6 71 18 85/49 99 Nasal Cannula 2.0 08/14/16 18:30 71 22 81/50 93 08/14/16 18:15 36.8 72 16 93/53 98 08/14/16 18:15 68 22 93 08/14/16 18:13 72 22 93/53 100 08/14/16 18:00 75 24 95 08/14/16 17:58 75 18 96/53 99 08/14/16 17:50 36.4 72 98/55 08/14/16 17:47 71 22 98/55 100 08/14/16 17:45 67 17 98 08/14/16 17:43 70 18 93/51 100 08/14/16 17:42 70 18 91/51 99 08/14/16 17:30 68 87/47 08/14/16 17:30 68 23 98 08/14/16 17:28 66 15 87/47 99 08/14/16 17:15 66 15 99 08/14/16 17:15 68 85/45 08/14/16 17:13 76 19 84/50 98 Physical Exam General Appearance: no apparent distress Eyes: normal inspection ENT: hearing grossly normal Neck: supple Respiratory/Chest: chest non-tender, normal breath sounds Cardiovascular: regular rate, rhythm Abdomen: normal bowel sounds, + pertinent finding (mild tenderness near wound area) Extremities: normal range of motion Laboratory Results Last 24 Hours Test 08/14/16 22:38 08/15/16 05:20 08/15/16 05:50 Lactic Acid Level 3.2 mmol/L 3.0 mmol/L White Blood Count 32.45 K/uL Red Blood Count 4.00 M/uL Hemoglobin 12.2 g/dL Hematocrit 35.7 % Mean Corpuscular Volume 89.3 fL Mean Corpuscular Hemoglobin 30.5 pg Mean Corpuscular Hemoglobin Concent 34.2 g/dl RDW Standard Deviation 58.9 fL RDW Coefficient of Variation 18.9 % Platelet Count 260 K/uL Mean Platelet Volume 12.1 fL Nucleated RBC Absolute Count (auto) 0.58 K/uL Nucleated Red Blood Cells % 1.7 % Creatinine 3.50 mg/dl Est Creatinine Clear Calc Drug Dose 22.0 ml/min Estimated GFR () 22.3 Estimated GFR (Non- 19.2 Total Bilirubin 2.5 mg/dl Direct Bilirubin 1.8 mg/dl Aspartate Amino Transf (AST/SGOT) 68 U/L Alanine Aminotransferase (ALT/SGPT) 21 U/L Alkaline Phosphatase 222 U/L Total Protein 5.9 gm/dl Albumin 1.5 gm/dl Random Vancomycin Level 18.4 mcg/ml Assessment and Plan patient is 51 y/o M with PMH of ESRD, systolic CHF, CAD, recent cholecystectomy and prior cystostomy placement who presented to ER form his [employer] office due to persistent fevers and abdominal pain. 1. Sepsis with bacteremia: improving blood culture showed most beta hemolytic strep, source is unknown, maybe related to abdomen wound. continue antibiotics, f/u ID consults. hypotension resolved, Levophed remained off for greater than 24 hours 2. ESRD on HD: tolerant HD, f/u nephro consult. f/u BMP, renal dose medications 3. Chronic CHF EF 40%: continue ASA, Plavix, statin. consider beta rubin after BP is stable 4. liver cirrhosis: stable, monitor 5. HTN: hold BP medication now diet: as tolerant Code: full DVT prophylaxis: heparin
[2016-08-15] MEDS: ATORVASTATIN 20 MG TAB PO SCH (20:34)
[2016-08-15] MEDS: HYDROCORTISONE IV 75 MG in SYRINGE 0 ML IV SCH (20:34)
[2016-08-15] MEDS: ERTAPENEM IV 500 MG in SODIUM CHLORIDE 0.9% 50ML 50 ML IV SCH (21:47)
[2016-08-15] MEDS: ONDANSETRON INJ 2 MG/ML 2 ML VIAL IV PRN (21:49)
[2016-08-15] MEDS ORDERED: HEPARIN SOD 5000 UNIT/0.5 ML CARP SQ SCH (22:00)
[2016-08-16] VITALS (9 sets, daily range): BP systolic 92–159; BP diastolic 56–80; PULSE 72–87; TEMP 36.4–36.8; O2SAT 90–96
[2016-08-16] MEDS: HEPARIN SOD 5000 UNIT/0.5 ML CARP SQ SCH ×3 (05:06→21:56)
[2016-08-16] MEDS: HYDROCORTISONE IV 75 MG in SYRINGE 0 ML IV SCH ×3 (05:08→21:56)
[2016-08-16 07:56] LABS: BUN/CREATININE RATIO 10.4 (10-20); CALCIUM 8.3 mg/dl (8.5-10.1); CREATININE 5.1 mg/dl (0.60-1.40); PHOSPHORUS 5.2 mg/dl (2.5-4.9)
[2016-08-16] MEDS: PSYLLIUM 58.6% PWD PACK S\\F PO SCH (07:59)
[2016-08-16] MEDS: ASPIRIN 81 MG ECTAB PO SCH (08:01)
[2016-08-16] MEDS: CINACALCET 30 MG TAB PO SCH (08:01)
[2016-08-16] MEDS: PANTOprazole SOD 40 MG TAB PO SCH ×2 (08:02→20:14)
[2016-08-16] MEDS: NEPHROCAPS PO SCH (08:02)
[2016-08-16] MEDS: CLOPIDOGREL BISULFATE 75 MG TAB PO SCH (08:02)
--- NOTE | 2016-08-16 10:46 | Nephrology Progress Note ---
Nephrology Progress Note Date of Service Aug 16, 2016. Chief Complaint ESRD Subjective No acute events overnight. Mr. Segura was very tired and appeared slightly confused this morning. He denied fevers or chills. He denied pain. He could not remember my name and was not able to answer his phone. He was holding his oxygen nasal canula in his hand and could not figure out what to do with it. Dwight was not able to tell me how long he has been in the hospital or why he was brought in. He denies shortness of breath. Reported that he was more awake earlier and able to eat 75% breakfast. Review of Systems A complete review of systems was performed. Pertinent positives are noted above. All other systems are negative. Vital Signs Last 8 Hrs Date Time Temp Pulse Resp B/P Pulse Ox O2 Delivery O2 Flow Rate FiO2 08/16/16 08:00 95 Nasal Cannula 4.0 08/16/16 07:47 36.4 75 18 96/58 91 4.0 08/16/16 04:00 36.4 83 22 109/64 96 Nasal Cannula 4.0 08/16/16 04:00 Nasal Cannula 4.0 I & O 24-Hour Column 08/16/16 08:00 Intake Total 200 ml Output Total 0 ml Balance 200 ml Last Recorded Weight Weight (Kilograms): 60.000 Physical Exam General Appearance: no apparent distress, + thin Head: normocephalic, atraumatic Eyes: normal inspection, sclerae normal ENT: normal ENT inspection, + pertinent finding (oral mucosa dry) Neck: supple, no JVD Respiratory/Chest: lungs clear, + rales (right base) Cardiovascular: regular rate, rhythm, no gallop Abdomen/GI: + pertinent finding (slightly distended, non tender) Extremities/Musculoskelatal: normal inspection, no pedal edema Neurologic/Psych: alert, + pertinent finding (no tremor, no focal neurologic findings, orientation improved quickly during conversation) Family History FH: heart disease Social History Smoking Status: Never smoker Smokeless Tobacco Use: No Alcohol Use: none Drug Use: none Marital Status: Housing Status: lives with family Occupation: employed, disabled Laboratory Results Past 24 Hours 08/16/16 06:55 Test 08/16/16 06:55 Anion Gap 14.0 mmol/L (3-11) Est Creatinine Clear Calc Drug Dose 14.7 ml/min Estimated GFR () 14.1 Estimated GFR (Non- 12.2 BUN/Creatinine Ratio 10.4 (10-20) Lactic Acid Level 1.4 mmol/L (0.4-2.0) Calcium Level 8.3 mg/dl (8.5-10.1) Phosphorus Level 5.2 mg/dl (2.5-4.9) Albumin 1.6 gm/dl (3.4-5.0) Parathyroid Hormone (Intact) 1425.4 pg/mL (11.1-79.5) Allergies Coded Allergies: POLLEN (Verified Allergy, Unknown, "HAYFEVER", 08/13/16) Diazoxide (Verified Adverse Reaction, Intermediate, ELEVATE BP;N&V, ) NSAIDs (Verified Adverse Reaction, Unknown, KIDNEY TRANSPLANT, 08/13/16) Medications Current Inpatient Medications Medications (Trade) Dose Ordered Sig/Amanda Route Start Time Stop Time Status Last Admin Dose Admin Aspirin (Ecotrin Tab) 81 mg DAILY PO 08/14/16 09:00 09/13/16 08:59 08/16/16 08:01 81 MG Atorvastatin Calcium (Lipitor Tab) 20 mg HS PO 08/14/16 21:00 09/13/16 20:59 08/15/16 20:34 20 MG Clopidogrel Bisulfate (plAVix TAB) 75 mg DAILY PO 08/14/16 09:00 09/13/16 08:59 08/16/16 08:02 75 MG Isosorbide Mononitrate (Imdur Ext Rel Tab) 60 mg DAILY PO 08/14/16 09:00 09/13/16 08:59 Future Hold Metoprolol Succinate (Toprol Xl Tab) 100 mg BID PO 08/14/16 09:00 09/13/16 08:59 Future Hold Pantoprazole Sodium (Protonix Tab) 40 mg BID PO 08/14/16 09:00 09/13/16 08:59 08/16/16 08:02 40 MG Vitamin B Complex/ Vit C/Folic Acid (Nephrocaps) 1 cap DAILY PO 08/14/16 09:00 09/13/16 08:59 08/16/16 08:02 1 CAP Cinacalcet (Sensipar) 30 mg QAM PO 08/14/16 09:00 09/13/16 08:59 08/16/16 08:01 30 MG Psyllium Hydrophilic Mucilloid (Metamucil Powder) 1 pkt DAILY PO 08/14/16 09:00 09/13/16 08:59 08/16/16 07:59 1 PKT Oxycodone HCl (Roxicodone Immediate Rel Tab) 5 mg Q4H PRN PO 08/13/16 23:00 08/27/16 22:59 08/14/16 23:18 5 MG Hydromorphone HCl (Dilaudid Inj) 0.5 mg Q3H PRN IV 08/13/16 23:00 08/27/16 22:59 08/15/16 21:47 0.5 MG Heparin Sodium (Porcine) (Heparin Sq 5000 Unit/0.5ml) 5,000 unit Q8H SQ 08/14/16 06:00 09/13/16 05:59 08/15/16 21:48 5,000 UNIT Al Hydrox/Mg Hydrox/Simethicone (Maalox Max Susp) 15 ml Q4H PRN PO 08/13/16 23:00 09/12/16 22:59 Magnesium Hydroxide (Milk Of Magnesia Susp) 30 ml Q6H PRN PO 08/13/16 23:00 09/12/16 22:59 Polyethylene (Miralax Powder Packet) 17 gm DAILY PRN PO 08/13/16 23:30 09/12/16 23:29 Zolpidem Tartrate (Ambien Tab) 5 mg HSZ PRN PO 08/13/16 23:00 09/12/16 22:59 Ondansetron HCl 4 mg 4 mg Q6H PRN IV 08/13/16 23:00 09/12/16 22:59 08/15/16 21:49 4 MG Ertapenem/Sodium Chloride (Invanz Iv/Nss 50ml) 55 ml @ 120 mls/hr Q24H IV 08/14/16 22:00 08/23/16 21:59 08/15/16 21:47 120 MLS/HR Miscellaneous Information 1 ea UD PRN N/A 08/13/16 23:30 09/12/16 23:29 Vancomycin HCl 1 ea 1 ea UD PRN N/A 08/13/16 23:30 09/12/16 23:29 Norepinephrine Bitartrate 8 mg/ Dextrose 508 ml @ 0 mls/hr Q0M PRN IV 08/14/16 01:43 09/13/16 01:42 08/14/16 15:13 0.12 MLS/HR Hydrocortisone Sodium Succinate/ Syringe (Solu-Cortef IV/ Syringe) 1.5 ml @ 4 mls/min Q8H IV 08/15/16 21:00 09/14/16 20:59 08/16/16 05:08 4 MLS/MIN Impression (1) End-stage renal disease on hemodialysis (2) Chronic systolic CHF (congestive heart failure) (3) CAD (coronary artery disease) (4) Liver cirrhosis (5) HTN (hypertension) (6) Bacteremia (7) Sepsis (8) Immunosuppression Mr. Segura was admitted with sepsis with beta-hemolytic strep bacteremia with a chronic abdominal wound. Volume status and blood pressure currently appropriate. Lactic acidosis improved. Electrolytes within normal limits. Remains slightly hypoxic on room air. Recommendations -- Blood pressure and volume status appropriate -- Plan HD tomorrow per MWF schedule -- Repeat renal profile and CBC tomorrow AM -- Medications appropriately dosed for renal function -- Provide frequent mental status assessment - given evidence of chronic liver disease, hepatic encephalopathy may be considered -- SPEP/immunofixation pending -- Calcium corrected for hypoalbuminemia appropriate with elevated CaxPO4 and PTH elevated - continue Sensipar as ordered
--- NOTE | 2016-08-16 12:03 | Hospitalist Progress Note ---
Hospitalist Progress Note Date of Service Aug 16, 2016. Subjective Pt evaluation today including: conversation w/ patient, physical exam, chart review, lab review, review of studies, review of inpatient medication list overnight doing ok, no acute event. Objective Vital Signs Date Time Temp Pulse Resp B/P Pulse Ox O2 Delivery O2 Flow Rate FiO2 08/16/16 11:08 36.7 72 18 92/56 93 Nasal Cannula 4.0 08/16/16 08:00 95 Nasal Cannula 4.0 08/16/16 07:47 36.4 75 18 96/58 91 4.0 08/16/16 04:00 36.4 83 22 109/64 96 Nasal Cannula 4.0 08/16/16 04:00 Nasal Cannula 4.0 08/15/16 23:59 Nasal Cannula 4.0 08/15/16 22:53 36.7 76 18 94/53 94 Nasal Cannula 4.0 08/15/16 20:55 36.3 73 18 93/55 93 Nasal Cannula 3.0 08/15/16 20:00 Nasal Cannula 2.0 08/15/16 20:00 36.6 77 20 89/44 95 Nasal Cannula 2.0 08/15/16 18:00 72 16 102/64 92 Room Air 08/15/16 16:00 92 Room Air 08/15/16 16:00 36.5 71 14 89/49 92 Room Air 08/15/16 14:00 73 16 93/52 94 Nasal Cannula 2.0 08/15/16 12:00 97 Nasal Cannula 2.0 08/15/16 12:00 36.5 75 18 106/57 97 Nasal Cannula 2.0 Physical Exam General Appearance: no apparent distress Eyes: normal inspection ENT: hearing grossly normal Neck: supple Respiratory/Chest: chest non-tender, lungs clear Cardiovascular: regular rate, rhythm, no edema Abdomen: normal bowel sounds, + tenderness (around wound area) Extremities: non-tender Neurologic/Psychiatric: + pertinent finding (oriented to person and place) Skin: normal color Laboratory Results Last 24 Hours Test 08/16/16 06:55 08/16/16 11:52 Sodium Level 138 mmol/L Potassium Level 4.0 mmol/L Chloride Level 97 mmol/L Carbon Dioxide Level 27 mmol/L Anion Gap 14.0 mmol/L Blood Urea Nitrogen 53 mg/dl Creatinine 5.10 mg/dl Est Creatinine Clear Calc Drug Dose 14.7 ml/min Estimated GFR () 14.1 Estimated GFR (Non- 12.2 BUN/Creatinine Ratio 10.4 Random Glucose 145 mg/dl Lactic Acid Level 1.4 mmol/L Calcium Level 8.3 mg/dl Phosphorus Level 5.2 mg/dl Albumin 1.6 gm/dl Parathyroid Hormone (Intact) 1425.4 pg/mL Assessment and Plan patient is 51 y/o M with PMH of ESRD, systolic CHF, CAD, recent cholecystectomy and prior cystostomy placement 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 1. Sepsis with bacteremia: improving, most likely due to postop wound infection. Wound culture grew staphy, blood culture showed most beta hemolytic strep, continue antibiotics, f/u sensitive results. f/u ID consults. 2 postop wound infection: continue antibiotics, f/u wound care, f/u ID 3. ESRD on HD: tolerant HD, f/u nephro consult. f/u BMP, renal dose medications 4. Chronic CHF EF 40%: continue ASA, Plavix, statin. consider beta rubin after BP is stable 5. liver cirrhosis: stable, monitor 6. HTN: hold BP medication now diet: as tolerant Code: full DVT prophylaxis: heparin
[2016-08-16 12:56] LABS: HEMATOCRIT 29.1 % (42-52); MEAN CELL VOLUME 85.8 fL (80-100); MEAN CORPUSCULAR HEMOGLOBIN 30.1 pg (25-34); MEAN CORPUSCULAR HGB CONC 35.1 g/dl (32-36); PLATELET COUNT 323 K/uL (130-400); RED BLOOD COUNT 3.39 M/uL (4.7-6.1); WHITE BLOOD COUNT 37.85 K/uL (4.8-10.8)
[2016-08-16 12:57] LABS: COMPLETE YES; ECHINOCYTES 1+; HOWELL-JOLLY BODIES 1+; LYMPH ABS # 0.68 K/uL (1.2-3.4); LYMPHOCYTE % 1.8 %; META ABS # 0.34 K/uL (0-0); METAMYELOCYTE % 0.9 %; NEUTROPHILS % 94.6 %; TARGET CELLS 2+; VARIANT LYM ABS # 0.34 K/uL; VARIANT LYMPHOCYTE % 0.9 %
[2016-08-16] MEDS: HYDROmorphone INJ 0.5 MG/0.5 ML SYR IV PRN ×2 (19:10→20:13)
[2016-08-16] MEDS: ONDANSETRON INJ 2 MG/ML 2 ML VIAL IV PRN (19:15)
[2016-08-16] MEDS ORDERED: HYDROmorphone INJ 1 MG/ML SYR IV STA (19:58)
[2016-08-16] MEDS: ERTAPENEM IV 500 MG in SODIUM CHLORIDE 0.9% 50ML 50 ML IV SCH (20:13)
[2016-08-16] MEDS: ATORVASTATIN 20 MG TAB PO SCH (20:14)
[2016-08-17] VITALS (31 sets, daily range): BP systolic 91–146; BP diastolic 44–85; PULSE 75–89; TEMP 36.2–36.8; O2SAT 88–100
[2016-08-17] MEDS: HEPARIN SOD 5000 UNIT/0.5 ML CARP SQ SCH ×2 (05:38→15:11)
[2016-08-17] MEDS: HYDROCORTISONE IV 75 MG in SYRINGE 0 ML IV SCH ×3 (05:38→21:23)
[2016-08-17 05:47] LABS: MEAN CELL VOLUME 87.1 fL (80-100); MEAN CORPUSCULAR HGB CONC 33.3 g/dl (32-36); MEAN PLATELET VOLUME 11.2 fL (7.4-10.4); PLATELET COUNT 299 K/uL (130-400); WHITE BLOOD COUNT 33.45 K/uL (4.8-10.8)
[2016-08-17 06:00] LABS: COMPLETE YES; LYMPH ABS # 2.34 K/uL (1.2-3.4); NEUTROPHILS % 88.6 %; TARGET CELLS 1+
[2016-08-17 06:22] LABS: BUN/CREATININE RATIO 11.9 (10-20); CALCIUM 7.3 mg/dl (8.5-10.1); CREATININE 6.7 mg/dl (0.60-1.40); PHOSPHORUS 4.4 mg/dl (2.5-4.9); POTASSIUM 4.1 mmol/L (3.5-5.1)
[2016-08-17] MEDS ORDERED: EPOETIN ALFA 10,000 UNITS/ML VIAL IV SCH (07:45)
[2016-08-17] MEDS: ASPIRIN 81 MG ECTAB PO SCH (08:01)
[2016-08-17] MEDS: NEPHROCAPS PO SCH (08:01)
[2016-08-17] MEDS: PSYLLIUM 58.6% PWD PACK S\\F PO SCH (08:01)
[2016-08-17] MEDS: PANTOprazole SOD 40 MG TAB PO SCH ×2 (08:02→21:24)
[2016-08-17] MEDS: CLOPIDOGREL BISULFATE 75 MG TAB PO SCH (08:02)
[2016-08-17] MEDS: CINACALCET 30 MG TAB PO SCH (08:02)
[2016-08-17] MEDS: VANCOMYCIN HCL 125 MG/2.5ML SOLN PO SCH ×4 (10:01→21:24)
[2016-08-17] MEDS: RASPBERRY SYRUP 5 ML UDP PO SCH ×4 (10:01→21:24)
[2016-08-17 10:37] LABS: HEPATITIS B AB NEG
--- NOTE | 2016-08-17 12:42 | NEPHROLOGY PROGRESS NOTE ---
DATE: 08/17/2016 SUBJECTIVE: Mr. Segura says that he is doing "okay." However, he seems to be obviously confused. He denies having any abdominal pain or nausea. He denies having any chest pain or shortness of breath, although he does say that he has a mild cough. Apparently his cough has been nonproductive. He denies having any shaking chills. His appetite has not been particularly good. He denies nausea or vomiting. He has no other symptoms of uremia or volume overload. Despite his denial of abdominal pain to me, he has apparently complained to the nurses and has been medicated with Dilaudid, as well as oxycodone during the hospital stay. His last dose of Dilaudid was at about 1900 hours last evening. His last oxycodone was 3 days ago. OBJECTIVE: GENERAL: On physical exam, Mr. Segura was initially sleeping. When awakened by me, he did seem to be somewhat confused. VITAL SIGNS: He is afebrile (36.2). His blood pressure 101/63 with a pulse of 79 and regular, respiratory rate 20, his pulse ox 88% to 94% on 4 liters of oxygen via nasal cannula. SKIN: Shows normal skin turgor. He has a sallow complexion and multiple scars from prior surgical procedures. 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 There is no obvious rash or infiltrative skin disease. Despite the color of his skin, he does not have conjunctival icterus. He has a right upper quadrant wound that is actually in the anterior axillary line. It appears to be dressed at the current time with a small amount of bloody discharge. There is no surrounding cellulitis or tactile fremitus. LYMPHATICS: Show no palpable lymphadenopathy. HEAD: Normal. EYES: Grossly normal. The ocular fundi were not examined. EARS, NOSE, MOUTH AND THROAT: Unremarkable. Oral mucous membranes are moist. His dentition is in very poor repair. NECK: Supple. There is no jugular venous distention, but the exam is limited by his body habitus. I hear no carotid bruits and there is no thyromegaly. CHEST: Clear to auscultation. I hear no wheezes, rales or rhonchi. CARDIAC: Shows a regular rhythm. S1 and S2 are normal. There is a soft systolic murmur at the base radiating to the neck. ABDOMEN: Shows the right upper quadrant wound. It is generally soft and does not seem to be tender. Bowel sounds are present. He has a hernia in the right lower quadrant of his abdomen. A renal graft is palpable in the right lower quadrant with no bruit over the graft. EXTREMITIES: Show no cyanosis, clubbing or peripheral edema. Peripheral pulses are diminished, but present. He has a bruit over the right femoral artery. He has degenerative changes in both knees. There is a left forearm AV fistula. NEUROLOGIC: Shows him to be confused, but there are no lateralizing changes. PERTINENT LABORATORY WORK: Shows a white count of 33,450 with 88.6% neutrophils, 7% lymphocytes, 4.4% monocytes. His hemoglobin is 9.0. His hematocrit 27.0. His platelet count 299,000. His clinical chemistries show a sodium of 140 mmol/L, potassium 4.1 mmol/L, chloride is 101 mmol/L, and CO2 content 26 mmol/L. His BUN is 80, creatinine 6.70. A random blood sugar is 132 this morning. His serum calcium is 7.3, his phosphate 4.4, his serum albumin 1.6. A vancomycin random level done today was 22.6. ASSESSMENT: As before, Mr. Segura's confusion could be multifactorial. Obviously the severity of his illness is a major contributor. His low blood pressure is not atypical for him and therefore I doubt it is a major factor. He has not had analgesics since last night, but the metabolites of the analgesics could be playing a role in his confusion. Nonetheless, I would attribute most of his confusion to the severity of his illness. RECOMMENDATIONS: Continue with antibiotics. He is getting his hemodialysis treatment this morning. No other immediate recommendations. Unfortunately, I fear his prognosis may not be good.
--- NOTE | 2016-08-17 14:41 | Hospitalist Progress Note ---
Hospitalist Progress Note Date of Service Aug 17, 2016. Subjective Pt evaluation today including: conversation w/ patient, physical exam, chart review, lab review, review of studies, review of inpatient medication list Patient is currently undergoing dialysis treatment. He is sleeping, but does awaken to verbal stimuli. He has no new concerns or complaints. Additional Comments: A 10 system review was performed and all were negative. Positives were placed in the subjective section. Objective Vital Signs Date Time Temp Pulse Resp B/P Pulse Ox O2 Delivery O2 Flow Rate FiO2 08/17/16 14:27 36.5 84 98/61 08/17/16 14:15 84 94/60 08/17/16 14:00 89 95/61 08/17/16 13:45 85 91/50 08/17/16 13:30 87 96/51 08/17/16 13:15 87 94/61 08/17/16 13:00 82 93/57 08/17/16 12:45 83 100/60 08/17/16 12:30 82 91/54 08/17/16 12:15 83 95/49 08/17/16 12:00 Nasal Cannula 4.0 08/17/16 12:00 75 99/50 08/17/16 11:45 89 95/59 08/17/16 11:30 83 100/44 08/17/16 11:15 82 102/50 08/17/16 11:00 76 99/49 08/17/16 10:45 83 101/54 08/17/16 10:30 80 97/55 08/17/16 10:15 79 96/58 08/17/16 10:00 36.4 88 95/61 08/17/16 09:44 88 08/17/16 08:00 Nasal Cannula 4.0 08/17/16 07:32 36.2 79 20 101/63 90 Room Air 08/17/16 04:05 36.3 81 16 100/64 94 08/17/16 04:00 Nasal Cannula 4.0 08/17/16 00:01 Nasal Cannula 4.0 08/16/16 23:47 36.6 87 20 118/67 94 2.0 08/16/16 20:00 Nasal Cannula 4.0 08/16/16 19:27 36.4 86 20 159/80 90 08/16/16 16:00 93 Nasal Cannula 4.0 08/16/16 15:20 36.8 76 20 124/67 96 Nasal Cannula 4.0 Physical Exam Notes: GEN: Awakens to verbal stimuli, Not in acute distress HEENT: Tm's intact, no inflammation, EOMI, PERRLA, MMM Neck: Soft, supple Lungs: CTA b/l, no r/r/w Heart: REG, nrl S1S2 without murmurs, rubs or gallops Abdomen: Soft, ND, + BS, minimal tenderness around abdominal wound. EXT: No C/C/E NEURO: CN's II-XII grossly intact, non-focal Skin: warm, dry, no rashes PSYCH: pleasant, cooperative. Laboratory Results Last 24 Hours Test 08/17/16 04:55 08/17/16 05:03 08/17/16 09:45 Random Vancomycin Level 22.6 mcg/ml White Blood Count 33.45 K/uL Red Blood Count 3.10 M/uL Hemoglobin 9.0 g/dL Hematocrit 27.0 % Mean Corpuscular Volume 87.1 fL Mean Corpuscular Hemoglobin 29.0 pg Mean Corpuscular Hemoglobin Concent 33.3 g/dl Platelet Count 299 K/uL Mean Platelet Volume 11.2 fL RDW Standard Deviation 57.0 fL RDW Coefficient of Variation 18.8 % Nucleated RBC Absolute Count (auto) 5.31 K/uL Neutrophils % (Manual) 88.6 % Lymphocytes % (Manual) 7.0 % Monocytes % (Manual) 4.4 % Nucleated Red Blood Cells % 15.9 % Neutrophils # (Manual) 29.64 K/uL Total Absolute Neutrophils 29.64 K/uL Lymphocytes # (Manual) 2.34 K/uL Total Absolute Lymphocytes 2.34 K/uL Monocytes # (Manual) 1.47 K/uL Target Cells 1+ Sodium Level 140 mmol/L Potassium Level 4.1 mmol/L Chloride Level 101 mmol/L Carbon Dioxide Level 26 mmol/L Anion Gap 13.0 mmol/L Blood Urea Nitrogen 80 mg/dl Creatinine 6.70 mg/dl Est Creatinine Clear Calc Drug Dose 11.2 ml/min Estimated GFR () 10.2 Estimated GFR (Non- 8.8 BUN/Creatinine Ratio 11.9 Random Glucose 132 mg/dl Calcium Level 7.3 mg/dl Phosphorus Level 4.4 mg/dl Albumin 1.6 gm/dl Hepatitis B Surface Antigen NEG Hepatitis B Surface Antibody NEG Assessment and Plan 1. Sepsis with bacteremia: improving, postop wound infection considered a likely source. Continue IV antibiotics. ID consult. 2. postop wound infection: continue antibiotics, f/u wound care, f/u ID 3. ESRD on HD: tolerant HD, f/u nephro consult. f/u BMP, renal dose medications 4. Chronic CHF EF 40%: continue ASA, Plavix, statin. 5. Cirrhosis: stable. 6. HTN DVT prophylaxis: heparin Continued [facility] stay due to: multiple IV medications needed
--- NOTE | 2016-08-17 15:22 | Progress Note ---
Subjective Date of Service: Aug 17, 2016. Subjective initial blood cultures with strep (from HD), repeat cultures on admission negative to date. wound culture with GAS and MSSA. Remains with significantly elevated wbc, c diff + this am, now on po vanco. Continues with Ertapenem and IV vanco by level, level today 23. Receiving HD today. Afebrile. transferred from ICU. tolerating abx. Problem List Medical Problems: (1) Atrial flutter with rapid ventricular response Status: Acute (2) Chest pain Status: Acute (3) Chest pain Status: Acute (4) Elevated troponin Status: Acute (5) End stage renal disease Status: Acute (6) ESRD (end stage renal disease) Status: Acute (7) GI bleed Status: Acute (8) Hyperbilirubinemia Status: Acute (9) Lower GI bleeding Status: Acute (10) Peptic ulcer disease Status: Acute (11) Precordial chest pain Status: Acute (12) RUQ abdominal pain Status: Acute (13) Sepsis Status: Acute (14) Upper abdominal pain Status: Acute (15) Wrist pain, left Status: Acute Social History Problems: (1) H/O splenectomy Status: Acute Objective Vital Signs Date Time Temp Pulse Resp B/P Pulse Ox O2 Delivery O2 Flow Rate FiO2 08/17/16 14:27 36.5 84 98/61 08/17/16 14:15 84 94/60 08/17/16 14:00 89 95/61 08/17/16 13:45 85 91/50 08/17/16 13:30 87 96/51 08/17/16 13:15 87 94/61 08/17/16 13:00 82 93/57 08/17/16 12:45 83 100/60 08/17/16 12:30 82 91/54 08/17/16 12:15 83 95/49 08/17/16 12:00 Nasal Cannula 4.0 08/17/16 12:00 75 99/50 08/17/16 11:45 89 95/59 08/17/16 11:30 83 100/44 08/17/16 11:15 82 102/50 08/17/16 11:00 76 99/49 08/17/16 10:45 83 101/54 08/17/16 10:30 80 97/55 08/17/16 10:15 79 96/58 08/17/16 10:00 36.4 88 95/61 08/17/16 09:44 88 08/17/16 08:00 Nasal Cannula 4.0 08/17/16 07:32 36.2 79 20 101/63 90 Room Air 08/17/16 04:05 36.3 81 16 100/64 94 08/17/16 04:00 Nasal Cannula 4.0 08/17/16 00:01 Nasal Cannula 4.0 08/16/16 23:47 36.6 87 20 118/67 94 2.0 08/16/16 20:00 Nasal Cannula 4.0 08/16/16 19:27 36.4 86 20 159/80 90 08/16/16 16:00 93 Nasal Cannula 4.0 08/16/16 15:20 36.8 76 20 124/67 96 Nasal Cannula 4.0 Laboratory Results Item Value Date Time Gram Stain - Final Resulted 08/14/16 0000 Incision Site Abdomen, Right Upper Quadrant Blood Culture - Preliminary Resulted 08/13/162024 Blood NO GROWTH TO DATE. Blood Culture - Preliminary Resulted 08/13/162044 Blood NO GROWTH TO DATE. C.difficile Toxin B Gene (PCR) - Final Complete 08/17/16 0240 Stool Positive for C. difficile toxin B gene Last 24 Hours Test 08/17/16 04:55 08/17/16 05:03 08/17/16 09:45 08/17/16 15:10 Random Vancomycin Level 22.6 mcg/ml White Blood Count 33.45 K/uL Red Blood Count 3.10 M/uL Hemoglobin 9.0 g/dL Hematocrit 27.0 % Mean Corpuscular Volume 87.1 fL Mean Corpuscular Hemoglobin 29.0 pg Mean Corpuscular Hemoglobin Concent 33.3 g/dl Platelet Count 299 K/uL Mean Platelet Volume 11.2 fL RDW Standard Deviation 57.0 fL RDW Coefficient of Variation 18.8 % Nucleated RBC Absolute Count (auto) 5.31 K/uL Neutrophils % (Manual) 88.6 % Lymphocytes % (Manual) 7.0 % Monocytes % (Manual) 4.4 % Nucleated Red Blood Cells % 15.9 % Neutrophils # (Manual) 29.64 K/uL Total Absolute Neutrophils 29.64 K/uL Lymphocytes # (Manual) 2.34 K/uL Total Absolute Lymphocytes 2.34 K/uL Monocytes # (Manual) 1.47 K/uL Target Cells 1+ Sodium Level 140 mmol/L Potassium Level 4.1 mmol/L Chloride Level 101 mmol/L Carbon Dioxide Level 26 mmol/L Anion Gap 13.0 mmol/L Blood Urea Nitrogen 80 mg/dl Creatinine 6.70 mg/dl Est Creatinine Clear Calc Drug Dose 11.2 ml/min Estimated GFR () 10.2 Estimated GFR (Non- 8.8 BUN/Creatinine Ratio 11.9 Random Glucose 132 mg/dl Calcium Level 7.3 mg/dl Phosphorus Level 4.4 mg/dl Albumin 1.6 gm/dl Hepatitis B Surface Antigen NEG Hepatitis B Surface Antibody NEG Assessment and Plan (1) Sepsis Status: Acute Assessment & Plan: continue abx for now, if blood cultures remain negative, will change to ancef. follow repeat cultures. echo negative for veg. (2) Postoperative wound infection Assessment & Plan: continue abx and local care to wound . (3) C. difficile colitis Assessment & Plan: no on po vanco, continue, follow wbc (4) Leukocytosis Assessment & Plan: likely multifactorial, bsi,c diff, wound infection. continue to follow. Continued [facility] stay due to: multiple IV medications needed
[2016-08-17 15:30] LABS: HEMATOCRIT 23.9 % (42-52)
--- NOTE | 2016-08-17 16:30 | Pharmacy Progress Note ---
Pharmacy Antibiotic Prog Note Date of Service: Aug 17, 2016. Subjective: The patient is currently receiving Vancomycin dosed by levels d/t HD and Invanz IV - both dosed per pharmacy consult. The patient is currently on day # 4 of Vancomycin IV and # 5 of Invanz IV therapy. Pt started Vancomycin po today for C.diff positive stool. Objective: Height (Feet): 5 Height (Inches): 6.00 Weight (Kilograms): 60.100 Levels: Item Value Date Time Random Vancomycin Level 22.6 mcg/ml 08/17/16 0455 Random Vancomycin Level 18.4 mcg/ml 08/15/16 0520 Random Vancomycin Level 25.0 mcg/ml 08/14/16 0700 Lab Results (24hrs): Laboratory Tests Test 08/17/16 05:03 BUN/Creatinine Ratio 11.9 Blood Urea Nitrogen 80 mg/dl Creatinine 6.70 mg/dl White Blood Count 33.45 K/uL Red Blood Count 3.10 M/uL Hemoglobin 9.0 g/dL Hematocrit 27.0 % Mean Corpuscular Volume 87.1 fL Mean Corpuscular Hemoglobin 29.0 pg Mean Corpuscular Hemoglobin Concent 33.3 g/dl Platelet Count 299 K/uL Mean Platelet Volume 11.2 fL Micro Results: Item Value Date Time C.difficile Toxin B Gene (PCR) - Final Complete 08/17/16 0240 Stool Positive for C. difficile toxin B gene Gram Stain - Final Complete 08/14/16 0000 Incision Site Abdomen, Right Upper Quadrant MRSA DNA Surveillance Screen - Final Complete 08/14/16 0000 Nasal Specimen Negative for MRSA by DNA Probe Blood Culture - Preliminary Resulted 08/13/162044 Blood NO GROWTH TO DATE. Blood Culture - Preliminary Resulted 08/13/162024 Blood NO GROWTH TO DATE. PATIENT: FOSTER RENE LOC: CSanjiv U # : [id number] AGE/SX: 51/M ROOM: S236 REG : 08/14/[address]: Babita Ruiz MD : [id number] BED: 1 DIS : STATUS: ADM IN TLOC: SPEC #: [id number] YASEMIN: 08/14/16-UNK STATUS: INGRIS REDanie #: [id number] RECD: 08/14/16 [facility] DR: Marco Woodson MD SOURCE: INC.SITE ENTR: 08/14/[address] [facility] DR: Aneudy Singh MD SPDESC: ABD, RUTodd Lucio M.D. Shippert, Brian W. , Tino Goldman M.D. ORDERED: SURF SHALONDA GARCIA/BG COMMENTS: Has Specimen Been Obtained/Collected? Y Procedure Result Verified Site GRAM STAIN Final 08/14/16-729 RESULT MODERATE WBCs SEEN FEW GRAM POSITIVE COCCI SURFACE WOUND CULTURE Final 08/17/16-899 Organism 1 GROUP A BETA STREP QUANITY MANY SENS NO SENSITIVITY TO FOLLOW Organism 2 STAPHYLOCOCCUS AUREUS QUANITY FEW SENS SENSITIVITY TO FOLLOW Phoned results to JOCELYN FREEMAN on 08/15/16 at 1402 by Genia Melchor. Results were verbalized back to 2. STAPHYLOCOCCUS AUREUS Target Route Dose RX AB Cost M.I.C. IQ ------ ----- ------ -- ------ -------- - ------ TRIMET/SULFA S <=0.5/ 9.5 * OXACILLIN S <=0.25 VANCOMYCIN S 2 ERYTHROMYCIN R >4 TETRACYCLINE R >8 CLINDAMYCIN S <=0.5 DAPTOMYCIN S <=0.5 S = SENSITIVE I = INTERMEDIATE R = RESISTANT Assessment & Plan: * Pt with Gram positive (Strep) septicemia - (culture from HD). * 08/14/16: Repeat BCx 2/2 NGTD (preliminary) * Postop wound cultures with Group A strep and MSSA. * ID is following and recs continued abx therapy on Vanc IV and Invanz IV at present time. Vancomycin IV: * Random level today prior to HD session was 22.6 mcg/ml. * Ordered Vancomycin 500mg IV x 1 to be infused post-HD session today to maintain therapeutic levels. * Obtain another random level prior to next HD session (?Wed 08/19). Invanz IV: * Continue Invanz 500 mg IV [id number] adjusted for HD Vancomycin po: * Continue per provider dosing for C.diff. Pharmacy will continue to follow and will adjust dose/frequency as necessary. Thank you
[2016-08-17] MEDS ORDERED: VANCOMYCIN INJ 500 MG in SODIUM CHLORIDE 0.9% 250ML 250 ML IV ONE (17:00)
[2016-08-17] MEDS: OXYCODONE HCL IR 5 MG TAB (IMMEDIATE RELEASE) PO PRN (19:36)
[2016-08-17] MEDS: ATORVASTATIN 20 MG TAB PO SCH (21:24)
[2016-08-17 22:07] LABS: HEMATOCRIT 25.6 % (42-52)
[2016-08-17] MEDS: ERTAPENEM IV 500 MG in SODIUM CHLORIDE 0.9% 50ML 50 ML IV SCH (22:13)
[2016-08-18] VITALS (11 sets, daily range): BP systolic 112–131; BP diastolic 68–75; PULSE 66–81; TEMP 36.4–36.5; O2SAT 88–100
[2016-08-18] MEDS: OXYCODONE HCL IR 5 MG TAB (IMMEDIATE RELEASE) PO PRN ×4 (00:49→20:00)
[2016-08-18] MEDS: HYDROCORTISONE IV 75 MG in SYRINGE 0 ML IV SCH ×3 (04:48→21:29)
[2016-08-18 07:51] LABS: HEMATOCRIT 26.8 % (42-52); MEAN CELL VOLUME 91.2 fL (80-100); MEAN CORPUSCULAR HEMOGLOBIN 30.6 pg (25-34); MEAN CORPUSCULAR HGB CONC 33.6 g/dl (32-36); RED BLOOD COUNT 2.94 M/uL (4.7-6.1); WHITE BLOOD COUNT 31.47 K/uL (4.8-10.8)
[2016-08-18 08:16] LABS: MEAN PLATELET VOLUME 11.5 fL (7.4-10.4); PLATELET COUNT 254 K/uL (130-400); PLT ESTIMATE NORMAL
[2016-08-18] MEDS: PSYLLIUM 58.6% PWD PACK S\\F PO SCH (09:00)
[2016-08-18] MEDS: VANCOMYCIN HCL 125 MG/2.5ML SOLN PO SCH ×4 (09:11→20:51)
[2016-08-18] MEDS: CINACALCET 30 MG TAB PO SCH (09:11)
[2016-08-18] MEDS: RASPBERRY SYRUP 5 ML UDP PO SCH ×4 (09:11→20:51)
[2016-08-18] MEDS: NEPHROCAPS PO SCH (09:11)
[2016-08-18] MEDS: PANTOprazole SOD 40 MG TAB PO SCH ×2 (09:11→20:53)
--- NOTE | 2016-08-18 10:05 | PROGRESS NOTE ---
DATE: 08/18/2016 SUBJECTIVE: Mr. Segura says that he is feeling a bit better. He says that his appetite is very slowly coming back. He still has a cough which he says is nonproductive. He has had no shaking chills and he has had no sweats. He has no other specific complaints including no problems of chest pain or shortness of breath. He says that he is having some occasional loose stools. He has no abdominal pain. OBJECTIVE: GENERAL: On physical exam at the current time, Mr. Segura appears as a chronically ill gentleman who did not appear to be in any significant distress at the time seen. However, he was very obviously confused. With some prompting, he knew that he was in the hospital. At other times; however, he voiced that he was not in the hospital and his had to be taking him certain places. VITAL SIGNS: He is afebrile (36.4), his blood pressure 131/68, his pulse 74 and regular, respiratory rate 16, his pulse ox 88-97 on 3 liters of nasal oxygen. SKIN: Shows a very sallow complexion. Skin turgor is normal. He has no obvious rash or infiltrative skin disease. He has multiple scars from prior surgical procedures including lower quadrant scars from kidney transplants, a midsternal scar from coronary artery bypass surgery and a scar on his left wrist from the creation of his AV fistula with multiple dialysis needle tract royal over the fistula. There is a right upper quadrant wound in the anterior axillary line. It is dressed. There is no surrounding cellulitis or fremitus. LYMPHATICS: Show no palpable lymphadenopathy. HEAD: Normal. EYES: Grossly normal. The ocular fundi were not examined. He had no conjunctival icterus. EARS, NOSE, MOUTH AND THROAT: Unremarkable, although his dentition is in poor repair. Oral mucous membranes are moist. NECK: Supple. He has no jugular venous distention. I hear no carotid bruits and there is no thyromegaly. CHEST: Clear to auscultation. He has no wheezes, rales or rhonchi. CARDIAC: Shows a regular rhythm. S1 and S2 are normal. He has a very soft systolic murmur at the base radiating toward the neck. ABDOMEN: Shows the right upper quadrant wound. It is otherwise soft and does not appear to be particularly tender. Bowel sounds are present. There is a hernia in the right lower quadrant of the abdomen. Renal graft is palpable in the right lower quadrant. There is no bruit over the graft. EXTREMITIES: Show no cyanosis, clubbing or peripheral edema. Peripheral pulses are diminished but present. He has a bruit over his right femoral artery (history of a traumatic AV fistula). He has a left forearm AV fistula which is functioning well with a good pulse, thrill and bruit. NEUROLOGIC: Shows him to be confused, but he has no lateralizing changes. PERTINENT LABORATORY WORK: From today shows a white count of 31,470, his hemoglobin 9.0, hematocrit 26.8, and platelet count is 254,000. Clinical chemistries were not done today. Other laboratory work that is pending includes the serum immunoelectrophoresis and a serum protein electrophoresis as well as a beta 2 microglobulin. ASSESSMENT: As before. Mr. Segura appears to be recovering from his acute infectious process on antibiotics. However, he is now very obviously confused. Given his history of some degree of hepatic cirrhosis, certainly checking blood ammonia would be appropriate. RECOMMENDATIONS: 1. Check blood ammonia. 2. Scheduled dialysis treatment is for tomorrow.
--- NOTE | 2016-08-18 10:24 | Gastrointestinal Consultation ---
Gastrointestinal Consultation Date of Consultation: Aug 18, 2016 Attending Physician: Dr. Delgado Consulting Physician: Joan Ndiyae PA-C Reason for Consultation: lower GI bleeding History of Present Illness Patient is a 51 year old male presently hospitalized with sepsis with bacteremia secondary to a post-operative abdominal wound infection. The patient recently underwent placement of a cholecystostomy tube as he was high risk for cholecystectomy. He then underwent a cholecystectomy which was complicated by post-operative acute on chronic liver failure & cardiogenic shock. The patient has ESRD on hemodialysis. He is presently being treated on IV antibiotics for his bacteremia per infectious disease recommendations. GI was consulted for evaluation of a possible lower GI bleed. The patient was noted to have loose, bloody stool on the evening of 08/16 and into 08/17. On 08/17 he was found to be C diff positive. He was started on po Vancomycin 125 mg QID. He was transfused PRBCs due to anemia, however since transfusion, his H/H has remained stable at 9.0/26.8. He reports that he has not had a bowel movement yet today. He reports that throughout the day on 08/17, he experienced less blood in his stool. He denies lower abdominal pain. He reports occasional pain around his surgical site, but reports that overall, he feels notably better today than yesterday. He has undergone several EGDs in the past 1 year. He reports that his last colonoscopy was in the last 10 years, but was not done at [facility]. He reports that it was unremarkable. He denies family history of GI malignancy or IBD. He takes Protonix 40 mg daily at home. The patient has a history of hepatic cirrhosis previously felt to be related to cardiac issues vs fatty liver. Past Medical/Surgical History Medical Problems: (1) Atrial flutter with rapid ventricular response Status: Acute (2) Chest pain Status: Acute (3) Chest pain Status: Acute (4) Elevated troponin Status: Acute (5) End stage renal disease Status: Acute (6) ESRD (end stage renal disease) Status: Acute (7) GI bleed Status: Acute (8) Hyperbilirubinemia Status: Acute (9) Lower GI bleeding Status: Acute (10) Peptic ulcer disease Status: Acute (11) Precordial chest pain Status: Acute (12) RUQ abdominal pain Status: Acute (13) Sepsis Status: Acute (14) Upper abdominal pain Status: Acute (15) Wrist pain, left Status: Acute Social History Problems: (1) H/O splenectomy Status: Acute Past Medical History: ESRD on HD, Diverticulosis, gastritis, gastric ulcer, H Pylori, HLD, DM2, HTN, OA Past Surgical History: hernia repair, renal transplant, cholecystostomy tube, cholecystectomy Family History FH: heart disease Social History Smoking Status: Never Smoker Alcohol Use: none Drug Use: none Marital Status: Housing Status: lives with significant other Occupation Status: employed, disabled Allergies Coded Allergies: POLLEN (Verified Allergy, Unknown, "HAYFEVER", 08/13/16) Diazoxide (Verified Adverse Reaction, Intermediate, ELEVATE BP;N&V, ) NSAIDs (Verified Adverse Reaction, Unknown, KIDNEY TRANSPLANT, 08/13/16) Current Medications Home Meds and Scripts Medications Dose Route/Sig Max Daily Dose Days Date Category Dose Instructions Nephrocaps (Vitamin B Complex/Vit C/Folic Acid) Cap 1 Cap PO DAILY 08/13/16 Reported Metamucil (Psyllium) 48.57 % Pow 1 Pkt PO DAILY 08/13/16 Reported Aspirin Ec (Aspirin) 81 Mg Tab 81 Mg PO DAILY 08/13/16 Reported Ampicillin 500 Mg Cap 2 Gm PO PRN UD 08/13/16 Reported PRN PRIOR TO DENTAL WORK. Pantoprazole Sodium (Pantoprazole) 40 Mg Tab 40 Mg PO BID 08/13/16 Reported Clopidogrel (Clopidogrel Bisulfate) 75 Mg Tab 75 Mg PO DAILY 08/13/16 Reported Atorvastatin Calcium (Atorvastatin) 20 Mg Tab 20 Mg PO HS 08/13/16 Reported Imdur Ext Rel (Isosorbide Mononitrate) 60 Mg Ertab 60 Mg PO DAILY 08/13/16 Reported Penicillin V Potassium 250 Mg Tab 250 Mg PO QAM 08/13/16 Reported Sensipar (Cinacalcet) 30 Mg Tab 30 Mg PO QAM 08/13/16 Reported Toprol-Xl (Metoprolol Succinate) 100 Mg Tabcr 100 Mg PO BID 08/13/16 Reported Oxycodone HCl 5 Mg Tab 5 Mg PO Q8 PRN 03/04/16 Reported Review of Systems Constitutional: No problem reported Eyes: No problem reported Respiratory: No cough, No shortness of breath Cardiac: No chest pain Abdomen: + GI bleeding (improved), No constipation, No diarrhea, No nausea, No pain, No vomiting Musculoskeletal: No joint pain Psych: No problem reported Skin: No problem reported Physical Exam Date Time Temp Pulse Resp B/P Pulse Ox O2 Delivery O2 Flow Rate FiO2 08/18/16 08:40 36.4 74 16 131/68 97 Nasal Cannula 3.0 08/18/16 04:00 95 Nasal Cannula 4.0 08/18/16 04:00 36.5 81 20 126/72 95 Nasal Cannula 4.0 08/18/16 00:01 88 Room Air 08/17/16 23:50 36.5 81 20 143/82 88 Room Air 08/17/16 20:25 36.8 82 20 138/72 93 Nasal Cannula 4.0 08/17/16 20:00 93 Nasal Cannula 4.0 08/17/16 19:30 36.5 85 20 136/72 92 08/17/16 18:45 36.6 82 20 146/75 96 4.0 08/17/16 18:00 36.4 84 20 137/75 92 08/17/16 17:32 36.5 85 20 131/74 100 4.0 08/17/16 17:16 36.5 80 22 135/85 97 4.0 08/17/16 15:48 Nasal Cannula 4.0 08/17/16 15:35 36.6 80 18 131/78 96 Nasal Cannula 4.0 Humidified Oxygen 08/17/16 14:27 36.5 84 98/61 08/17/16 14:15 84 94/60 08/17/16 14:00 89 95/61 08/17/16 13:45 85 91/50 08/17/16 13:30 87 96/51 08/17/16 13:15 87 94/61 08/17/16 13:00 82 93/57 08/17/16 12:45 83 100/60 08/17/16 12:30 82 91/54 08/17/16 12:15 83 95/49 08/17/16 12:00 Nasal Cannula 4.0 08/17/16 12:00 75 99/50 08/17/16 11:45 89 95/59 08/17/16 11:30 83 100/44 08/17/16 11:15 82 102/50 08/17/16 11:00 76 99/49 08/17/16 10:45 83 101/54 08/17/16 10:30 80 97/55 08/17/16 10:15 79 96/58 08/17/16 10:00 36.4 88 95/61 08/17/16 09:44 88 General Appearance: no apparent distress, + pertinent finding (significant weight loss) Eyes: normal inspection, PERRL Respiratory/Chest: lungs clear Cardiovascular: regular rate, rhythm, + systolic murmur Abdomen: normal bowel sounds, non tender, soft Extremities: non-tender Neurologic/Psych: alert, + pertinent finding (some confusion noted during exam) Skin: normal color Laboratory Results Last 24 Hours Test 08/17/16 09:45 08/17/16 15:24 08/17/16 21:57 08/18/16 07:07 Hepatitis B Surface Antigen NEG Hepatitis B Surface Antibody NEG Hemoglobin 8.2 g/dL 9.2 g/dL 9.0 g/dL Hematocrit 23.9 % 25.6 % 26.8 % White Blood Count 31.47 K/uL Red Blood Count 2.94 M/uL Mean Corpuscular Volume 91.2 fL Mean Corpuscular Hemoglobin 30.6 pg Mean Corpuscular Hemoglobin Concent 33.6 g/dl RDW Standard Deviation 56.5 fL RDW Coefficient of Variation 18.2 % Platelet Count 254 K/uL Mean Platelet Volume 11.5 fL Nucleated RBC Absolute Count (auto) 7.98 K/uL Nucleated Red Blood Cells % 25.4 % Platelet Estimate NORMAL Impression Patient is a 51 year old male with sepsis due to bacteremia 2/2 post-operative wound infection who experienced loose stools and bright red blood per rectum yesterday. He has tested positive for C diff and is currently being treated. H/ H has remained stable and patient denies further bleeding today. Plan 1) Continue Vancomycin 125 mg QID. 2) Continue to monitor H/H. 3) Continue to monitor for further bleeding. 4) Discussed role of probiotic therapy. 5) No plans for invasive work-up at present given bacteremia & other comorbidities. Will continue to monitor and adjust plan as necessary. Thank you for allowing us to participate in the care of this patient. If you should have any further questions or concerns, do not hesitate to contact us. Agree with KATE Fritz as above Abd: Soft, Tender RUQ, ND, +BS Nursing reports two BM's with slight blood Patient with C-diff, which can cause bloody BM's No plans for endoscopic workup at this time.
[2016-08-18] MEDS: HYDROmorphone INJ 0.5 MG/0.5 ML SYR IV PRN ×2 (12:46→22:27)
--- NOTE | 2016-08-18 14:56 | Progress Note ---
Subjective Date of Service: Aug 18, 2016. Subjective pt tolerating abx, repeat cultures negative to date. afebrile. ? GI bleed, s/p GI eval, no plans for invasive workup. wound culture growing group A strep and MSSA. previous blood cultures from HD growing strep. no plans for OR. wbc remains elevated, mild improvement today. Problem List Medical Problems: (1) Atrial flutter with rapid ventricular response Status: Acute (2) Chest pain Status: Acute (3) Chest pain Status: Acute (4) Elevated troponin Status: Acute (5) End stage renal disease Status: Acute (6) ESRD (end stage renal disease) Status: Acute (7) GI bleed Status: Acute (8) Hyperbilirubinemia Status: Acute (9) Lower GI bleeding Status: Acute (10) Peptic ulcer disease Status: Acute (11) Precordial chest pain Status: Acute (12) RUQ abdominal pain Status: Acute (13) Sepsis Status: Acute (14) Upper abdominal pain Status: Acute (15) Wrist pain, left Status: Acute Social History Problems: (1) H/O splenectomy Status: Acute Objective Vital Signs Date Time Temp Pulse Resp B/P Pulse Ox O2 Delivery O2 Flow Rate FiO2 08/18/16 12:00 100 Nasal Cannula 4.0 08/18/16 11:51 36.4 69 18 126/69 100 Nasal Cannula 3.0 08/18/16 08:40 36.4 74 16 131/68 97 Nasal Cannula 3.0 08/18/16 08:00 95 Nasal Cannula 4.0 08/18/16 04:00 95 Nasal Cannula 4.0 08/18/16 04:00 36.5 81 20 126/72 95 Nasal Cannula 4.0 08/18/16 00:01 88 Room Air 08/17/16 23:50 36.5 81 20 143/82 88 Room Air 08/17/16 20:25 36.8 82 20 138/72 93 Nasal Cannula 4.0 08/17/16 20:00 93 Nasal Cannula 4.0 08/17/16 19:30 36.5 85 20 136/72 92 08/17/16 18:45 36.6 82 20 146/75 96 4.0 08/17/16 18:00 36.4 84 20 137/75 92 08/17/16 17:32 36.5 85 20 131/74 100 4.0 1/23/17 17:16 36.5 80 22 135/85 97 4.0 08/17/16 15:48 Nasal Cannula 4.0 08/17/16 15:35 36.6 80 18 131/78 96 Nasal Cannula 4.0 Humidified Oxygen Laboratory Results Item Value Date Time Gram Stain - Final Complete 08/14/16 0000 Incision Site Abdomen, Right Upper Quadrant Blood Culture - Preliminary Resulted 08/13/162024 Blood NO GROWTH TO DATE. Blood Culture - Preliminary Resulted 08/13/162044 Blood NO GROWTH TO DATE. C.difficile Toxin B Gene (PCR) - Final Complete 08/17/16 0240 Stool Positive for C. difficile toxin B gene Last 24 Hours Test 08/17/16 15:24 08/17/16 21:57 08/18/16 07:07 08/18/16 10:15 Hemoglobin 8.2 g/dL 9.2 g/dL 9.0 g/dL Hematocrit 23.9 % 25.6 % 26.8 % White Blood Count 31.47 K/uL Red Blood Count 2.94 M/uL Mean Corpuscular Volume 91.2 fL Mean Corpuscular Hemoglobin 30.6 pg Mean Corpuscular Hemoglobin Concent 33.6 g/dl RDW Standard Deviation 56.5 fL RDW Coefficient of Variation 18.2 % Platelet Count 254 K/uL Mean Platelet Volume 11.5 fL Nucleated RBC Absolute Count (auto) 7.98 K/uL Nucleated Red Blood Cells % 25.4 % Platelet Estimate NORMAL Ammonia < 10.0 umol/L Assessment and Plan (1) Sepsis Status: Acute Assessment & Plan: will change abx to ancef 1g daily to treat wound infection and bsi. will maintain IV for now while undergoing gi workup. will need 14 days. (2) Postoperative wound infection (3) C. difficile colitis Assessment & Plan: continue po vanco. (4) Leukocytosis Assessment & Plan: slightly improved, ? addition of po vanco for c diff. Continued [facility] stay due to: multiple IV medications needed
[2016-08-18] MEDS: CEFAZOLIN IV 1,000 MG in DEXTROSE 5% 50ML 50 ML IV SCH (17:03)
--- NOTE | 2016-08-18 19:28 | Hospitalist Progress Note ---
Hospitalist Progress Note Date of Service Aug 18, 2016. Subjective Pt evaluation today including: conversation w/ patient, physical exam, chart review, lab review, review of studies, review of inpatient medication list Patient reports feeling a bit better today. He has not had any further bloody bms Dialysis tomorrow. Additional Comments: A 10 system review was performed and all were negative. Positives were placed in the subjective section. Objective Vital Signs Date Time Temp Pulse Resp B/P Pulse Ox O2 Delivery O2 Flow Rate FiO2 08/18/16 16:00 100 Nasal Cannula 4.0 08/18/16 15:15 36.4 66 20 129/75 100 Nasal Cannula 4.0 08/18/16 12:00 100 Nasal Cannula 4.0 08/18/16 11:51 36.4 69 18 126/69 100 Nasal Cannula 3.0 08/18/16 08:40 36.4 74 16 131/68 97 Nasal Cannula 3.0 08/18/16 08:00 95 Nasal Cannula 4.0 08/18/16 04:00 95 Nasal Cannula 4.0 08/18/16 04:00 36.5 81 20 126/72 95 Nasal Cannula 4.0 08/18/16 00:01 88 Room Air 08/17/16 23:50 36.5 81 20 143/82 88 Room Air 08/17/16 20:25 36.8 82 20 138/72 93 Nasal Cannula 4.0 08/17/16 20:00 93 Nasal Cannula 4.0 08/17/16 19:30 36.5 85 20 136/72 92 Physical Exam Notes: GEN: He is more awake and alert today. Still confused at times. Not in acute distress HEENT: Tm's intact, no inflammation, EOMI, PERRLA, MMM Neck: Soft, supple Lungs: CTA b/l, no r/r/w Heart: REG, nrl S1S2 without murmurs, rubs or gallops Abdomen: Soft, ND, + BS, minimal tenderness around abdominal wound. EXT: No C/C/E NEURO: CN's II-XII grossly intact, non-focal Skin: warm, dry, no rashes PSYCH: pleasant, cooperative. Laboratory Results Last 24 Hours Test 08/17/16 21:57 08/18/16 07:07 08/18/16 10:15 Hemoglobin 9.2 g/dL 9.0 g/dL Hematocrit 25.6 % 26.8 % White Blood Count 31.47 K/uL Red Blood Count 2.94 M/uL Mean Corpuscular Volume 91.2 fL Mean Corpuscular Hemoglobin 30.6 pg Mean Corpuscular Hemoglobin Concent 33.6 g/dl RDW Standard Deviation 56.5 fL RDW Coefficient of Variation 18.2 % Platelet Count 254 K/uL Mean Platelet Volume 11.5 fL Nucleated RBC Absolute Count (auto) 7.98 K/uL Nucleated Red Blood Cells % 25.4 % Platelet Estimate NORMAL Ammonia < 10.0 umol/L Assessment and Plan 1. Sepsis with bacteremia: improving, postop wound infection considered a likely source. Continue IV antibiotics. ID consult. 2. postop wound infection: continue antibiotics, f/u wound care, f/u ID 3. ESRD on HD: tolerant HD, f/u nephro consult. f/u BMP, renal dose medications 4. Chronic CHF EF 40%: continue ASA, Plavix, statin. 5. Cirrhosis: stable. 6. HTN 7) Lower Gi bleed likely due to C.Diff infection; held plavix and asa. 1 unit of PRBCs given. DVT prophylaxis: stopped heparin due to gi bleeding.
[2016-08-18] MEDS: SACCHAROMYCES BOUL (FLORASTOR) 250 MG CAP PO SCH (20:52)
[2016-08-18] MEDS: ATORVASTATIN 20 MG TAB PO SCH (20:52)
[2016-08-19] VITALS (28 sets, daily range): BP systolic 92–145; BP diastolic 51–81; PULSE 65–73; TEMP 36.3–36.8; O2SAT 90–98
[2016-08-19] MEDS: OXYCODONE HCL IR 5 MG TAB (IMMEDIATE RELEASE) PO PRN ×3 (01:15→13:31)
[2016-08-19] MEDS: HYDROmorphone INJ 0.5 MG/0.5 ML SYR IV PRN ×3 (05:20→22:10)
[2016-08-19] MEDS: HYDROCORTISONE IV 75 MG in SYRINGE 0 ML IV SCH ×3 (05:23→20:54)
[2016-08-19 07:07] LABS: MEAN CORPUSCULAR HGB CONC 33.1 g/dl (32-36); MEAN PLATELET VOLUME 11.7 fL (7.4-10.4); PLATELET COUNT 285 K/uL (130-400)
[2016-08-19 07:47] LABS: HEMATOCRIT 26.6 % (42-52); MEAN CELL VOLUME 93.3 fL (80-100); MEAN CORPUSCULAR HEMOGLOBIN 30.9 pg (25-34); RED BLOOD COUNT 2.85 M/uL (4.7-6.1); WHITE BLOOD COUNT 29.13 K/uL (4.8-10.8)
[2016-08-19 07:48] LABS: COMPLETE YES; HOWELL-JOLLY BODIES 1+; LYMPH ABS # 1.08 K/uL (1.2-3.4); LYMPHOCYTE % 3.7 %; NEUTROPHILS % 91.6 %; POLYCHROMASIA 1+; TARGET CELLS 2+
[2016-08-19 07:49] LABS: ALBUMIN 2.1 G/DL (3.8-4.8); GAMMA GLOBULIN 2.1 G/DL (0.8-1.7); TOTAL PROTEIN 5.9 G/DL (6.2-8.3)
[2016-08-19 07:54] LABS: BUN/CREATININE RATIO 10.4 (10-20); CALCIUM 7.1 mg/dl (8.5-10.1); MAGNESIUM 2.3 mg/dl (1.8-2.4); POTASSIUM 3.9 mmol/L (3.5-5.1)
[2016-08-19] MEDS ORDERED: EPOETIN ALFA 10,000 UNITS/ML VIAL IV. SCH (08:00)
[2016-08-19] MEDS ORDERED: SODIUM CHLORIDE 0.9% 1000ML 1,000 ML IV PRN (08:00)
[2016-08-19] MEDS ORDERED: HEPARIN SOD (PORCINE) 1000 UNIT/ML 10 ML VIAL IV SCH (08:00)
[2016-08-19] MEDS ORDERED: IRON SUCROSE INJ 50 MG in SYRINGE 0 ML IV SCH (08:00)
[2016-08-19] MEDS: PSYLLIUM 58.6% PWD PACK S\\F PO SCH (09:00)
--- NOTE | 2016-08-19 09:27 | Gastroenterology Progress Note ---
Progress Note Date of Service: Aug 19, 2016 Subjective Pt evaluation today including: conversation w/ patient, physical exam, lab review, review of studies Patient is a 51 yo male who is hospitalized with bacteremia sepsis 2/2 abdominal wound. GI is following for diarrhea & rectal bleeding presumed to be related to his C diff infection. Patient reports that the frequency of his bowel movements has greatly improved. He reports he has not noticed bleeding since early on 08/18. He reports abdominal discomfort around the surgical wound, but denies further abdominal cramping, fever, chills, sweats, nausea, or vomiting. He is very emotional this morning about going home. He is very frustrated that he remains in the hospital. He has intermittent confusion. His ammonia level is unremarkable. His H/H is 8.8/26.6. He offers no further GI complaints at present. Review of Systems Constitutional: + fatigue, No chills, No fever Respiratory: No cough, No shortness of breath Abdomen: + pain (pain around surgical site), No GI bleeding, No constipation, No diarrhea, No nausea, No vomiting Musculoskeletal: No joint pain Psych: No problem reported Skin: + problem reported (abdominal wound) Medications Current Inpatient Medications Medications (Trade) Dose Ordered Sig/Amanda Route Start Time Stop Time Status Last Admin Dose Admin Atorvastatin Calcium (Lipitor Tab) 20 mg HS PO 08/14/16 21:00 09/13/16 20:59 08/18/16 20:52 20 MG Isosorbide Mononitrate (Imdur Ext Rel Tab) 60 mg DAILY PO 08/14/16 09:00 09/13/16 08:59 Future Hold Metoprolol Succinate (Toprol Xl Tab) 100 mg BID PO 08/14/16 09:00 09/13/16 08:59 Future Hold Pantoprazole Sodium (Protonix Tab) 40 mg BID PO 08/14/16 09:00 09/13/16 08:59 08/18/16 20:53 40 MG Vitamin B Complex/ Vit C/Folic Acid (Nephrocaps) 1 cap DAILY PO 08/14/16 09:00 09/13/16 08:59 08/18/16 09:11 1 CAP Cinacalcet (Sensipar) 30 mg QAM PO 08/14/16 09:00 09/13/16 08:59 08/18/16 09:11 30 MG Psyllium Hydrophilic Mucilloid (Metamucil Powder) 1 pkt DAILY PO 08/14/16 09:00 09/13/16 08:59 08/17/16 08:01 1 PKT Oxycodone HCl (Roxicodone Immediate Rel Tab) 5 mg Q4H PRN PO 08/13/16 23:00 08/27/16 22:59 08/19/16 06:48 5 MG Hydromorphone HCl (Dilaudid Inj) 0.5 mg Q3H PRN IV 08/13/16 23:00 08/27/16 22:59 08/19/16 05:20 0.5 MG Al Hydrox/Mg Hydrox/Simethicone (Maalox Max Susp) 15 ml Q4H PRN PO 08/13/16 23:00 09/12/16 22:59 Magnesium Hydroxide (Milk Of Magnesia Susp) 30 ml Q6H PRN PO 08/13/16 23:00 09/12/16 22:59 Polyethylene (Miralax Powder Packet) 17 gm DAILY PRN PO 08/13/16 23:30 09/12/16 23:29 Zolpidem Tartrate (Ambien Tab) 5 mg HSZ PRN PO 08/13/16 23:00 09/12/16 22:59 Ondansetron HCl 4 mg 4 mg Q6H PRN IV 08/13/16 23:00 09/12/16 22:59 08/16/16 19:15 4 MG Hydrocortisone Sodium Succinate/ Syringe (Solu-Cortef IV/ Syringe) 1.5 ml @ 4 mls/min Q8H IV 08/15/16 21:00 09/14/16 20:59 08/19/16 05:23 4 MLS/MIN Vancomycin HCl (Vancomycin Oral Soln) 125 mg QID PO 08/17/16 09:00 08/31/16 08:59 08/18/16 20:51 125 MG Raspberry (Raspberry Syrup 5ml Cup) 5 ml QID PO 08/17/16 09:00 08/27/16 08:59 08/18/16 20:51 5 ML Heparin Sodium (Porcine) (Heparin Iv Bolus) 2,000 unit TODAY@0800 IV 08/19/16 08:00 08/19/16 18:00 Epoetin Pieter 83903 units 10,000 units TODAY@0800 IV. 08/19/16 08:00 08/19/16 18:00 Iron Sucrose 50 mg/Syringe 2.5 ml @ 1 mls/min TODAY@0800 IV 08/19/16 08:00 08/19/16 18:00 Sodium Chloride (Nss 1000ml) 1,000 ml @ 0 mls/hr Q0M PRN IV 08/19/16 08:00 08/19/16 18:00 Saccharomyces Boulardii 250 mg 250 mg BID PO 08/18/16 21:00 09/17/16 20:59 08/18/16 20:52 250 MG Cefazolin Sodium/ Dextrose (Ancef Iv/D5 50ml) 55 ml @ 100 mls/hr Q24H IV 08/18/16 16:00 09/01/16 15:59 08/18/16 17:03 100 MLS/HR Objective Vital Signs Date Time Temp Pulse Resp B/P Pulse Ox O2 Delivery O2 Flow Rate FiO2 08/19/16 09:15 69 107/57 08/19/16 09:00 71 110/62 08/19/16 08:45 68 101/58 08/19/16 08:30 68 112/61 08/19/16 08:15 67 109/65 08/19/16 08:00 66 110/63 08/19/16 07:45 67 113/66 08/19/16 07:30 67 103/67 08/19/16 07:15 65 97/62 08/19/16 07:00 66 108/63 08/19/16 06:45 69 101/55 08/19/16 06:35 67 113/64 08/19/16 06:30 36.3 66 103/59 08/19/16 04:00 Nasal Cannula 3.0 08/19/16 04:00 36.5 66 121/74 93 Nasal Cannula 2.0 08/19/16 00:00 98 Nasal Cannula 3.0 08/18/16 22:55 36.4 68 18 112/72 98 Nasal Cannula 3.0 08/18/16 20:00 99 Nasal Cannula 2.5 08/18/16 19:34 36.4 73 20 127/73 99 Nasal Cannula 2.5 Humidified Oxygen 08/18/16 16:00 100 Nasal Cannula 4.0 08/18/16 15:15 36.4 66 20 129/75 100 Nasal Cannula 4.0 08/18/16 12:00 100 Nasal Cannula 4.0 08/18/16 11:51 36.4 69 18 126/69 100 Nasal Cannula 3.0 Physical Exam General Appearance: no apparent distress Eyes: normal inspection, PERRL Respiratory/Chest: lungs clear, normal breath sounds Cardiovascular: regular rate, rhythm, + systolic murmur Abdomen: normal bowel sounds, soft, + tenderness (around surgical site) Extremities: non-tender Neurologic/Psych: alert, + pertinent finding (confusion still present, but improving) Skin: normal color, + pertinent finding (abdominal wound noted) Laboratory Results Last 24 Hours Test 08/18/16 10:15 08/19/16 06:23 Ammonia < 10.0 umol/L White Blood Count 29.13 K/uL Red Blood Count 2.85 M/uL Hemoglobin 8.8 g/dL Hematocrit 26.6 % Mean Corpuscular Volume 93.3 fL Mean Corpuscular Hemoglobin 30.9 pg Mean Corpuscular Hemoglobin Concent 33.1 g/dl Platelet Count 285 K/uL Mean Platelet Volume 11.7 fL RDW Standard Deviation 59.0 fL RDW Coefficient of Variation 19.9 % Nucleated RBC Absolute Count (auto) 8.62 K/uL Neutrophils % (Manual) 91.6 % Lymphocytes % (Manual) 3.7 % Monocytes % (Manual) 4.7 % Nucleated Red Blood Cells % 29.6 % Neutrophils # (Manual) 26.68 K/uL Total Absolute Neutrophils 26.68 K/uL Lymphocytes # (Manual) 1.08 K/uL Total Absolute Lymphocytes 1.08 K/uL Monocytes # (Manual) 1.37 K/uL Polychromasia 1+ Target Cells 2+ Carter-[place] Bodies 1+ Sodium Level 145 mmol/L Potassium Level 3.9 mmol/L Chloride Level 104 mmol/L Carbon Dioxide Level 28 mmol/L Anion Gap 13.0 mmol/L Blood Urea Nitrogen 63 mg/dl Creatinine 6.00 mg/dl Est Creatinine Clear Calc Drug Dose 12.2 ml/min Estimated GFR () 11.6 Estimated GFR (Non- 10.0 BUN/Creatinine Ratio 10.4 Random Glucose 150 mg/dl Calcium Level 7.1 mg/dl Magnesium Level 2.3 mg/dl Random Vancomycin Level 21.8 mcg/ml Assessment and Plan Patient is a 51 yo male with sepsis bacteremia 2/2 post-operative abdominal wound infection. He is presently being treated for C diff. 1) Continue Vancomycin 125 mg po four times daily. 2) Continue to monitor for worsening symptoms of diarrhea or bleeding, though this has seemed to improved since initiation of C diff treatment. 3) Supportive care per primary team. Thank you for allowing us to participate in the care of this patient. If you should have any further questions or concerns, do not hesitate to contact us. Agree with KATE Fritz as above Abd: Soft, NT, ND, +BS Only had a single BM today per nursing Continue Vancomycin therapy as prescribed.
--- NOTE | 2016-08-19 10:50 | Progress Note ---
Subjective Date of Service: Aug 19, 2016. Subjective pt currently on HD in room, being treated for strep sepsis, surgical wound as source. changed to ancef yesterday, tolerating well. remains on po vanco for c diff. ER blood cultures negative and final. WBC count continues to improve on po vanco, 29 today. AFebrile. Problem List Medical Problems: (1) Atrial flutter with rapid ventricular response Status: Acute (2) Chest pain Status: Acute (3) Chest pain Status: Acute (4) Elevated troponin Status: Acute (5) End stage renal disease Status: Acute (6) ESRD (end stage renal disease) Status: Acute (7) GI bleed Status: Acute (8) Hyperbilirubinemia Status: Acute (9) Lower GI bleeding Status: Acute (10) Peptic ulcer disease Status: Acute (11) Precordial chest pain Status: Acute (12) RUQ abdominal pain Status: Acute (13) Sepsis Status: Acute (14) Upper abdominal pain Status: Acute (15) Wrist pain, left Status: Acute Social History Problems: (1) H/O splenectomy Status: Acute Objective Vital Signs Date Time Temp Pulse Resp B/P Pulse Ox O2 Delivery O2 Flow Rate FiO2 08/19/16 10:42 36.7 68 116/51 08/19/16 10:35 68 92/59 08/19/16 10:15 69 96/61 08/19/16 10:00 68 99/61 08/19/16 09:45 71 100/61 08/19/16 09:30 73 107/65 08/19/16 09:15 69 107/57 08/19/16 09:00 71 110/62 08/19/16 08:45 68 101/58 08/19/16 08:30 68 112/61 08/19/16 08:15 67 109/65 08/19/16 08:00 66 110/63 08/19/16 07:45 67 113/66 08/19/16 07:30 67 103/67 08/19/16 07:15 65 97/62 08/19/16 07:00 66 108/63 08/19/16 06:45 69 101/55 08/19/16 06:35 67 113/64 08/19/16 06:30 36.3 66 103/59 08/19/16 04:00 Nasal Cannula 3.0 08/19/16 04:00 36.5 66 121/74 93 Nasal Cannula 2.0 08/19/16 00:00 98 Nasal Cannula 3.0 08/18/16 22:55 36.4 68 18 112/72 98 Nasal Cannula 3.0 08/18/16 20:00 99 Nasal Cannula 2.5 08/18/16 19:34 36.4 73 20 127/73 99 Nasal Cannula 2.5 Humidified Oxygen 08/18/16 16:00 100 Nasal Cannula 4.0 08/18/16 15:15 36.4 66 20 129/75 100 Nasal Cannula 4.0 08/18/16 12:00 100 Nasal Cannula 4.0 08/18/16 11:51 36.4 69 18 126/69 100 Nasal Cannula 3.0 Physical Exam General Appearance: WD/WN, no apparent distress Respiratory/Chest: normal breath sounds Laboratory Results Item Value Date Time C.difficile Toxin B Gene (PCR) - Final Complete 08/17/16 0240 Stool Positive for C. difficile toxin B gene Gram Stain - Final Complete 08/14/16 0000 Incision Site Abdomen, Right Upper Quadrant Blood Culture - Final Complete 08/13/162044 Blood NO GROWTH Blood Culture - Final Complete 08/13/162024 Blood NO GROWTH Last 24 Hours Test 08/19/16 06:23 White Blood Count 29.13 K/uL Red Blood Count 2.85 M/uL Hemoglobin 8.8 g/dL Hematocrit 26.6 % Mean Corpuscular Volume 93.3 fL Mean Corpuscular Hemoglobin 30.9 pg Mean Corpuscular Hemoglobin Concent 33.1 g/dl Platelet Count 285 K/uL Mean Platelet Volume 11.7 fL RDW Standard Deviation 59.0 fL RDW Coefficient of Variation 19.9 % Nucleated RBC Absolute Count (auto) 8.62 K/uL Neutrophils % (Manual) 91.6 % Lymphocytes % (Manual) 3.7 % Monocytes % (Manual) 4.7 % Nucleated Red Blood Cells % 29.6 % Neutrophils # (Manual) 26.68 K/uL Total Absolute Neutrophils 26.68 K/uL Lymphocytes # (Manual) 1.08 K/uL Total Absolute Lymphocytes 1.08 K/uL Monocytes # (Manual) 1.37 K/uL Polychromasia 1+ Target Cells 2+ Carter-[place] Bodies 1+ Sodium Level 145 mmol/L Potassium Level 3.9 mmol/L Chloride Level 104 mmol/L Carbon Dioxide Level 28 mmol/L Anion Gap 13.0 mmol/L Blood Urea Nitrogen 63 mg/dl Creatinine 6.00 mg/dl Est Creatinine Clear Calc Drug Dose 12.2 ml/min Estimated GFR () 11.6 Estimated GFR (Non- 10.0 BUN/Creatinine Ratio 10.4 Random Glucose 150 mg/dl Calcium Level 7.1 mg/dl Magnesium Level 2.3 mg/dl Random Vancomycin Level 21.8 mcg/ml Assessment and Plan (1) Sepsis Status: Acute Assessment & Plan: will change abx to ancef 1g daily to treat wound infection and bsi. will maintain IV for now while undergoing gi workup. will need 14 days. Can maintain IV for now, upon d/c can change to Keflex 500mg po q24 to complete 14 days. ok for d/c from ID standpoint when medically stable. (2) Postoperative wound infection Assessment & Plan: continue local care and abx. (3) C. difficile colitis Assessment & Plan: continue po vanco, would continue for additional 14 days after abx for wound infection stopped. (4) Leukocytosis Assessment & Plan: slightly improved, ? addition of po vanco for c diff. Continued [facility] stay due to: multiple IV medications needed
[2016-08-19] MEDS: CINACALCET 30 MG TAB PO SCH (11:30)
[2016-08-19] MEDS: RASPBERRY SYRUP 5 ML UDP PO SCH ×4 (11:31→20:56)
[2016-08-19] MEDS: NEPHROCAPS PO SCH (11:31)
[2016-08-19] MEDS: SACCHAROMYCES BOUL (FLORASTOR) 250 MG CAP PO SCH ×2 (11:31→20:56)
[2016-08-19] MEDS: PANTOprazole SOD 40 MG TAB PO SCH ×2 (11:31→20:55)
[2016-08-19] MEDS: VANCOMYCIN HCL 125 MG/2.5ML SOLN PO SCH ×4 (11:32→20:58)
--- NOTE | 2016-08-19 12:34 | NEPHROLOGY PROGRESS NOTE ---
DATE: 08/19/2016 SUBJECTIVE: Mr. Segura says that he is feeling a bit better today. He is still having occasional loose stools, but overall his diarrhea seems better. His appetite is slightly improved. When he awoke this morning he had a relatively sharp mid epigastric discomfort, but it appeared to resolve fairly quickly and was unassociated with other symptoms. He has had no chest pain and no shortness of breath. He has had no definite symptoms of uremia or volume overload. He tolerated his hemodialysis treatment today. He has had no shaking chills or sweats. OBJECTIVE: GENERAL: On physical exam at the current time, Mr. Segura continues to appear as a chronically ill gentleman, younger than his stated age of 51. He did not seem to be in any acute distress when seen. VITAL SIGNS: He is afebrile (36.5), his blood pressure 136/79 with a pulse of 71 and regular, respiratory rate is 16, his pulse ox 97% on 2 liters of oxygen via nasal cannula. SKIN: Shows a very sallow complexion. There is no rash or infiltrative skin disease. Skin turgor is normal. 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 That area is currently bandaged. He has a right upper quadrant wound in the anterior axillary line. It is dressed. There is no surrounding crepitus or cellulitis. LYMPHATICS: Show no palpable lymphadenopathy. HEAD: Normal. EYES: Grossly normal. He has no conjunctival icterus. EARS, NOSE, MOUTH AND THROAT: Unremarkable. His dentition is in poor repair. Oral mucous membranes are moist. NECK: Supple. He has no jugular venous distention, carotid bruit or thyromegaly. CHEST: Clear to auscultation. He has no wheezes, rales or rhonchi. CARDIAC: Shows a regular rhythm. S1 and S2 are normal. He has a systolic murmur at the base radiating toward the neck. ABDOMEN: Shows the right upper quadrant wound and lower quadrant scars. It is not tender. There is no obvious organomegaly or mass. His renal graft is palpable in the right lower quadrant. He has a hernia in the right lower quadrant as well. EXTREMITIES: Show no cyanosis, clubbing or peripheral edema. Peripheral pulses are diminished, but present. There is a bruit over his right femoral artery (history of traumatic AV fistula). He has a left forearm AV fistula which is functioning well with a good pulse, thrill and bruit. NEUROLOGIC: Shows him to be less confused today than he was yesterday. He has no lateralizing changes. He has no asterixis. PERTINENT LABORATORY WORK: Predialysis today shows a white count of 29,130 with 91.6% neutrophils, 3.7% lymphocytes, 4.7% monocytes. His hemoglobin is 8.8 with a hematocrit of 26.6. His platelet count is 285,000. His clinical chemistries from today show a sodium of 145 mmol/L, potassium 3.9 mmol/L, chloride 104 mmol/L, and CO2 content 28 mmol/L. His BUN is 63, his creatinine 6.00. His serum calcium is 7.1. On August 17, his serum albumin was 1.6. On July 29 his blood ammonia was less than 10.0. ASSESSMENT: Mr. Segura appears to be somewhat better. He has a decrease in his frequent stools. He tolerated his dialysis well. PLAN: Continue with his diet, emphasis on nutrition and ambulation. Continue with his antibiotics. Hemodialysis is scheduled for August 21.
[2016-08-19] MEDS: CEFAZOLIN IV 1,000 MG in DEXTROSE 5% 50ML 50 ML IV SCH (16:53)
--- NOTE | 2016-08-19 20:00 | Hospitalist Progress Note ---
Hospitalist Progress Note Date of Service Aug 19, 2016. Subjective Pt evaluation today including: conversation w/ patient, physical exam, chart review, lab review, review of studies, review of inpatient medication list Patient demands to have a regular diet. He tells me that this is what he eats at home [id number]. He does wish to go home, but understands that he requires antibiotics in IV form for now. Additional Comments: A 10 system review was performed and all were negative. Positives were placed in the subjective section. Objective Vital Signs Date Time Temp Pulse Resp B/P Pulse Ox O2 Delivery O2 Flow Rate FiO2 08/19/16 16:00 97 Nasal Cannula 2.0 08/19/16 15:12 36.7 73 18 128/78 97 Nasal Cannula 2.0 Humidified Oxygen 08/19/16 13:30 145/76 08/19/16 12:00 97 Nasal Cannula 2.0 08/19/16 11:27 36.5 71 16 136/79 97 Nasal Cannula 2.0 08/19/16 10:42 36.7 68 116/51 08/19/16 10:35 68 92/59 08/19/16 10:15 69 96/61 08/19/16 10:00 68 99/61 08/19/16 09:45 71 100/61 08/19/16 09:30 73 107/65 08/19/16 09:15 69 107/57 08/19/16 09:00 71 110/62 08/19/16 08:45 68 101/58 08/19/16 08:30 68 112/61 08/19/16 08:15 67 109/65 08/19/16 08:00 66 110/63 08/19/16 07:45 67 113/66 08/19/16 07:30 67 103/67 08/19/16 07:15 65 97/62 08/19/16 07:00 66 108/63 08/19/16 06:45 69 101/55 08/19/16 06:35 67 113/64 08/19/16 06:30 36.3 66 103/59 08/19/16 04:00 Nasal Cannula 3.0 08/19/16 04:00 36.5 66 121/74 93 Nasal Cannula 2.0 08/19/16 00:00 98 Nasal Cannula 3.0 08/18/16 22:55 36.4 68 18 112/72 98 Nasal Cannula 3.0 08/18/16 20:00 99 Nasal Cannula 2.5 Physical Exam Notes: GEN: He is more awake and alert today. Still confused at times. Not in acute distress HEENT: Tm's intact, no inflammation, EOMI, PERRLA, MMM Neck: Soft, supple Lungs: CTA b/l, no r/r/w Heart: REG, nrl S1S2 without murmurs, rubs or gallops Abdomen: Soft, ND, + BS, minimal tenderness around abdominal wound. EXT: No C/C/E NEURO: CN's II-XII grossly intact, non-focal Skin: warm, dry, no rashes PSYCH: pleasant, cooperative. Laboratory Results Last 24 Hours Test 08/19/16 06:23 08/19/16 11:00 White Blood Count 29.13 K/uL Red Blood Count 2.85 M/uL Hemoglobin 8.8 g/dL Hematocrit 26.6 % Mean Corpuscular Volume 93.3 fL Mean Corpuscular Hemoglobin 30.9 pg Mean Corpuscular Hemoglobin Concent 33.1 g/dl Platelet Count 285 K/uL Mean Platelet Volume 11.7 fL RDW Standard Deviation 59.0 fL RDW Coefficient of Variation 19.9 % Nucleated RBC Absolute Count (auto) 8.62 K/uL Neutrophils % (Manual) 91.6 % Lymphocytes % (Manual) 3.7 % Monocytes % (Manual) 4.7 % Nucleated Red Blood Cells % 29.6 % Neutrophils # (Manual) 26.68 K/uL Total Absolute Neutrophils 26.68 K/uL Lymphocytes # (Manual) 1.08 K/uL Total Absolute Lymphocytes 1.08 K/uL Monocytes # (Manual) 1.37 K/uL Polychromasia 1+ Target Cells 2+ Carter-[place] Bodies 1+ Sodium Level 145 mmol/L Potassium Level 3.9 mmol/L Chloride Level 104 mmol/L Carbon Dioxide Level 28 mmol/L Anion Gap 13.0 mmol/L Blood Urea Nitrogen 63 mg/dl Creatinine 6.00 mg/dl Est Creatinine Clear Calc Drug Dose 12.2 ml/min Estimated GFR () 11.6 Estimated GFR (Non- 10.0 BUN/Creatinine Ratio 10.4 Random Glucose 150 mg/dl Calcium Level 7.1 mg/dl Magnesium Level 2.3 mg/dl Random Vancomycin Level 21.8 mcg/ml Bedside Glucose 147 mg/dl Assessment and Plan 1. Sepsis with bacteremia: improving, postop wound infection considered a likely source. Continue IV antibiotics. See ID note from today for plan of care. 2. postop wound infection: continue antibiotics, f/u wound care, f/u ID 3. ESRD on HD: tolerant HD, f/u nephro consult. f/u BMP, renal dose medications 4. Chronic CHF EF 40%: continue ASA, Plavix, statin. 5. Cirrhosis: stable. 6. HTN 7) Lower Gi bleed likely due to C.Diff infection; held plavix and asa. 1 unit of PRBCs given. H& H has been stable. DVT prophylaxis: stopped heparin due to gi bleeding.
[2016-08-19] MEDS: ATORVASTATIN 20 MG TAB PO SCH (20:55)
[2016-08-20] MEDS: OXYCODONE HCL IR 5 MG TAB (IMMEDIATE RELEASE) PO PRN ×4 (01:16→23:31)
[2016-08-20] MEDS: HYDROmorphone INJ 0.5 MG/0.5 ML SYR IV PRN ×4 (03:16→19:32)
[2016-08-20 04:00] VITALS: BP 107/63; PULSE 70; TEMP 36.9; O2SAT 92
[2016-08-20] MEDS: HYDROCORTISONE IV 75 MG in SYRINGE 0 ML IV SCH (05:09)
[2016-08-20 06:57] LABS: HEMATOCRIT 26.8 % (42-52); MEAN CORPUSCULAR HEMOGLOBIN 30.9 pg (25-34); MEAN CORPUSCULAR HGB CONC 32.8 g/dl (32-36); MEAN PLATELET VOLUME 11.7 fL (7.4-10.4); PLATELET COUNT 304 K/uL (130-400); RED BLOOD COUNT 2.85 M/uL (4.7-6.1); WHITE BLOOD COUNT 32.87 K/uL (4.8-10.8)
[2016-08-20 07:01] LABS: ANISOCYTOSIS PRESENT; COMPLETE YES; HOWELL-JOLLY BODIES 1+; LYMPH ABS # 1.12 K/uL (1.2-3.4); LYMPHOCYTE % 3.4 %; METAMYELOCYTE % 0.9 %; MYELOCYTE % 0.9 %; NEUTROPHILS % 89.6 %; POLYCHROMASIA 1+; TARGET CELLS 2+
[2016-08-20 07:02] LABS: BUN/CREATININE RATIO 8.1 (10-20); CREATININE 4.5 mg/dl (0.60-1.40); POTASSIUM 3.4 mmol/L (3.5-5.1)
[2016-08-20 07:38] VITALS: BP 128/76; PULSE 68; TEMP 36.8; O2SAT 95
[2016-08-20 07:57] LABS: LARGE PLATELETS 1+
[2016-08-20] MEDS: RASPBERRY SYRUP 5 ML UDP PO SCH ×4 (08:51→20:54)
[2016-08-20] MEDS: VANCOMYCIN HCL 125 MG/2.5ML SOLN PO SCH ×4 (08:51→20:54)
[2016-08-20] MEDS: CINACALCET 30 MG TAB PO SCH (08:53)
[2016-08-20] MEDS: SACCHAROMYCES BOUL (FLORASTOR) 250 MG CAP PO SCH ×2 (08:53→20:53)
[2016-08-20] MEDS: PANTOprazole SOD 40 MG TAB PO SCH ×2 (08:54→20:53)
[2016-08-20] MEDS: NEPHROCAPS PO SCH (08:54)
[2016-08-20] MEDS: PSYLLIUM 58.6% PWD PACK S\\F PO SCH (08:54)
--- NOTE | 2016-08-20 09:49 | Progress Note ---
Subjective Date of Service: Aug 20, 2016. Subjective No events, tolerating abx. wbc increased today slightly, no fevers overnight. blood cultures negative. on po vanco for c diff. tolerating well. Problem List Medical Problems: (1) Atrial flutter with rapid ventricular response Status: Acute (2) Chest pain Status: Acute (3) Chest pain Status: Acute (4) Elevated troponin Status: Acute (5) End stage renal disease Status: Acute (6) ESRD (end stage renal disease) Status: Acute (7) GI bleed Status: Acute (8) Hyperbilirubinemia Status: Acute (9) Lower GI bleeding Status: Acute (10) Peptic ulcer disease Status: Acute (11) Precordial chest pain Status: Acute (12) RUQ abdominal pain Status: Acute (13) Sepsis Status: Acute (14) Upper abdominal pain Status: Acute (15) Wrist pain, left Status: Acute Social History Problems: (1) H/O splenectomy Status: Acute Objective Vital Signs Date Time Temp Pulse Resp B/P Pulse Ox O2 Delivery O2 Flow Rate FiO2 08/20/16 07:38 36.8 68 20 128/76 95 Nasal Cannula 2.0 08/20/16 04:00 36.9 70 16 107/63 92 Nasal Cannula 2.0 08/20/16 04:00 Nasal Cannula 2.0 08/19/16 23:55 36.8 70 16 113/81 90 Nasal Cannula 2.0 08/19/16 23:48 Nasal Cannula 2.0 08/19/16 20:00 Nasal Cannula 2.0 08/19/16 19:27 36.6 73 20 131/74 92 Room Air 08/19/16 16:00 97 Nasal Cannula 2.0 08/19/16 15:12 36.7 73 18 128/78 97 Nasal Cannula 2.0 Humidified Oxygen 08/19/16 13:30 145/76 08/19/16 12:00 97 Nasal Cannula 2.0 08/19/16 11:27 36.5 71 16 136/79 97 Nasal Cannula 2.0 08/19/16 10:42 36.7 68 116/51 08/19/16 10:35 68 92/59 08/19/16 10:15 69 96/61 08/19/16 10:00 68 99/61 08/19/16 09:45 71 100/61 Laboratory Results Item Value Date Time C.difficile Toxin B Gene (PCR) - Final Complete 08/17/16 0240 Stool Positive for C. difficile toxin B gene Gram Stain - Final Complete 08/14/16 0000 Incision Site Abdomen, Right Upper Quadrant Blood Culture - Final Complete 08/13/162044 Blood NO GROWTH Blood Culture - Final Complete 08/13/162024 Blood NO GROWTH Last 24 Hours Test 08/19/16 11:00 08/20/16 05:55 Bedside Glucose 147 mg/dl White Blood Count 32.87 K/uL Red Blood Count 2.85 M/uL Hemoglobin 8.8 g/dL Hematocrit 26.8 % Mean Corpuscular Volume 94.0 fL Mean Corpuscular Hemoglobin 30.9 pg Mean Corpuscular Hemoglobin Concent 32.8 g/dl Platelet Count 304 K/uL Mean Platelet Volume 11.7 fL RDW Standard Deviation 58.1 fL RDW Coefficient of Variation 21.4 % Nucleated RBC Absolute Count (auto) 9.73 K/uL Neutrophils % (Manual) 89.6 % Lymphocytes % (Manual) 3.4 % Monocytes % (Manual) 5.2 % Metamyelocytes % 0.9 % Myelocytes % 0.9 % Nucleated Red Blood Cells % 30.1 % Neutrophils # (Manual) 29.45 K/uL Total Absolute Neutrophils 29.45 K/uL Lymphocytes # (Manual) 1.12 K/uL Total Absolute Lymphocytes 1.12 K/uL Monocytes # (Manual) 1.71 K/uL Metamyelocytes # 0.30 K/uL Myelocytes # 0.30 K/uL Large Platelets 1+ Polychromasia 1+ Basophilic Stippling 2+ Anisocytosis PRESENT Target Cells 2+ Carter-[place] Bodies 1+ Sodium Level 143 mmol/L Potassium Level 3.4 mmol/L Chloride Level 103 mmol/L Carbon Dioxide Level 29 mmol/L Anion Gap 11.0 mmol/L Blood Urea Nitrogen 37 mg/dl Creatinine 4.50 mg/dl Est Creatinine Clear Calc Drug Dose 15.5 ml/min Estimated GFR () 16.4 Estimated GFR (Non- 14.2 BUN/Creatinine Ratio 8.1 Random Glucose 192 mg/dl Calcium Level 7.0 mg/dl Assessment and Plan (1) Sepsis Status: Acute Assessment & Plan: will change abx to ancef 1g daily to treat wound infection and bsi. will maintain IV for now while undergoing gi workup. will need 14 days. Can maintain IV for now, upon d/c can change to Keflex 500mg po q24 to complete 14 days. ok for d/c from ID standpoint when medically stable. (2) Postoperative wound infection Assessment & Plan: continue local care and abx. (3) C. difficile colitis Assessment & Plan: continue po vanco, would continue for additional 14 days after abx for wound infection stopped. (4) Leukocytosis Continued [facility] stay due to: multiple IV medications needed
--- NOTE | 2016-08-20 11:07 | NEPHROLOGY PROGRESS NOTE ---
DATE: 08/20/2016 SUBJECTIVE: Mr. Segura says that he is feeling considerably better today. He says that he is still having some loose stools, but they are not occurring as frequently as they had. He had 2 bowel movements yesterday. He denies having any abdominal pain or nausea and he says that his appetite is gradually improving. He has had no shaking chills or fevers. He denies having any chest pain or significant shortness of breath. He is increasingly active and says that he has been walking in the halls with some assistance. He has no specific symptoms of uremia and no symptoms of volume overload. OBJECTIVE: GENERAL: On physical examination, Mr. Segura appears as a chronically ill gentleman, younger than his stated age of 51. VITAL SIGNS: He is afebrile (36.8), his blood pressure 128/76 seated with a pulse of 68 and regular. His respiratory rate is 20 and his pulse ox is 90%-95% on 2 liters of oxygen via nasal cannula. SKIN: Shows a very sallow complexion. He has no obvious rash or infiltrative skin disease. Skin turgor is normal. He has multiple scars from prior surgical procedures including lower scars from kidney transplants, midsternal scar from coronary artery bypass surgery and a scar in his left wrist from the creation of his AV fistula. He has multiple dialysis needle tract royal over the fistula. He has a right upper quadrant wound that is dressed. There does not appear to be any drainage from it. LYMPHATICS: Show no palpable lymphadenopathy. HEAD: Normal. EYES: Grossly normal. He has no conjunctival icterus. EARS, NOSE, MOUTH AND THROAT: Unremarkable. Dentition is in poor repair. Oral mucous membranes are moist. NECK: Supple. There is no jugular venous distention, carotid bruit or thyromegaly. CHEST: Clear to auscultation. I hear no wheezes, rales or rhonchi. CARDIAC: Shows a regular rhythm. S1 and S2 are normal. He has a systolic murmur at the base radiating toward the neck. ABDOMEN: Shows right upper quadrant and lower quadrant scars. He has a hernia in the right lower quadrant. There is no organomegaly or mass. His renal graft is palpable in the right lower quadrant. It is not tender. EXTREMITIES: Show no cyanosis, clubbing or peripheral edema. Peripheral pulses are diminished, but present. He has a bruit over his right femoral artery from a traumatic AV fistula. There is a left forearm AV fistula, which functions well with a good pulse, thrill and bruit. He has no joint swelling or erythema. NEUROLOGIC: Shows him to be oriented to time, place and person and he does not seem at all confused. There are no lateralizing changes and he has no asterixis. PERTINENT LABORATORY WORK: From today shows a white count of 32,870 with 89.6% neutrophils, 3.4% lymphocytes, 5.2% monocytes, 0.9% metamyelocytes, and 0.9% myelocytes. His hemoglobin is 8.8, his hematocrit 26.8, and his platelet count 304,000. His clinical chemistries show a sodium of 143 mmol/L, potassium 3.4 mmol/L, chlorides 103 mmol/L, and CO2 content 29 mmol/L. His BUN is 37 and creatinine 4.50. His serum calcium is 7.0, but his albumin was quite low when last measured at 1.6. ASSESSMENT: Mr. Segura appears to be continuing to improve. Certainly, he has no immediate issues related to his end-stage renal disease other than the increasing susceptibility to infection. Certainly, that appears to be what led to this hospitalization. He had initially what appeared to be a viral illness similar to other family members, but then had positive blood cultures and subsequently developed Clostridium difficile colitis. He has had C. diff in the past. RECOMMENDATIONS: I have reviewed Dr. Tillman's note and agree with the continuation of Ancef 1 gram daily, but discharged the patient on Keflex 500 mg daily for a total of 14 days of antibiotic therapy. Vancomycin should also be continued for the duration of his antibiotic therapy with Keflex and then an additional 14 days. I can manage that as an outpatient. If his current improvement continues, I think he may be able to be discharged in the next day or so. He is certainly anxious to do so. For now, however, we will schedule his hemodialysis treatment for tomorrow.
[2016-08-20 12:15] VITALS: BP 181/102; PULSE 71; TEMP 36.3; O2SAT 96
[2016-08-20] MEDS ORDERED: NURSING VERBAL MED ORDER ONE (13:30)
[2016-08-20] MEDS ORDERED: LOPERAMIDE HCL 2 MG CAP PO PRN ×2 (13:45)
[2016-08-20 15:09] VITALS: BP 164/77; PULSE 68; TEMP 36.5; O2SAT 91
[2016-08-20] MEDS: CEFAZOLIN IV 1,000 MG in DEXTROSE 5% 50ML 50 ML IV SCH (17:35)
[2016-08-20 19:26] VITALS: BP 152/78; PULSE 71; TEMP 36.4; O2SAT 100
[2016-08-20 20:00] VITALS: O2SAT 100
--- NOTE | 2016-08-20 20:33 | Hospitalist Progress Note ---
Hospitalist Progress Note Date of Service Aug 20, 2016. Subjective Pt evaluation today including: conversation w/ patient, physical exam, chart review, lab review, review of studies, review of inpatient medication list Patient is feeling better today. His mentation appears to be improving. No further blood per rectum. He would like to go home tomorrow. Additional Comments: A 10 system review was performed and all were negative. Positives were placed in the subjective section. Objective Vital Signs Date Time Temp Pulse Resp B/P Pulse Ox O2 Delivery O2 Flow Rate FiO2 08/20/16 20:00 100 Room Air 08/20/16 19:26 36.4 71 18 152/78 100 Room Air 08/20/16 16:00 Room Air 08/20/16 15:09 36.5 68 20 164/77 91 Room Air 08/20/16 12:15 36.3 71 20 181/102 96 Room Air 08/20/16 12:00 Nasal Cannula 2.0 08/20/16 08:00 Nasal Cannula 2.0 08/20/16 07:38 36.8 68 20 128/76 95 Nasal Cannula 2.0 08/20/16 04:00 36.9 70 16 107/63 92 Nasal Cannula 2.0 08/20/16 04:00 Nasal Cannula 2.0 08/19/16 23:55 36.8 70 16 113/81 90 Nasal Cannula 2.0 08/19/16 23:48 Nasal Cannula 2.0 Physical Exam Notes: GEN: He is more awake and alert today. Still confused at times. Not in acute distress HEENT: Tm's intact, no inflammation, EOMI, PERRLA, MMM Neck: Soft, supple Lungs: CTA b/l, no r/r/w Heart: REG, nrl S1S2 without murmurs, rubs or gallops Abdomen: Soft, ND, + BS, less tenderness around abdominal wound. EXT: No C/C/E NEURO: CN's II-XII grossly intact, non-focal Skin: warm, dry, no rashes PSYCH: pleasant, cooperative. Laboratory Results Last 24 Hours Test 08/20/16 05:55 White Blood Count 32.87 K/uL Red Blood Count 2.85 M/uL Hemoglobin 8.8 g/dL Hematocrit 26.8 % Mean Corpuscular Volume 94.0 fL Mean Corpuscular Hemoglobin 30.9 pg Mean Corpuscular Hemoglobin Concent 32.8 g/dl Platelet Count 304 K/uL Mean Platelet Volume 11.7 fL RDW Standard Deviation 58.1 fL RDW Coefficient of Variation 21.4 % Nucleated RBC Absolute Count (auto) 9.73 K/uL Neutrophils % (Manual) 89.6 % Lymphocytes % (Manual) 3.4 % Monocytes % (Manual) 5.2 % Metamyelocytes % 0.9 % Myelocytes % 0.9 % Nucleated Red Blood Cells % 30.1 % Neutrophils # (Manual) 29.45 K/uL Total Absolute Neutrophils 29.45 K/uL Lymphocytes # (Manual) 1.12 K/uL Total Absolute Lymphocytes 1.12 K/uL Monocytes # (Manual) 1.71 K/uL Metamyelocytes # 0.30 K/uL Myelocytes # 0.30 K/uL Large Platelets 1+ Polychromasia 1+ Basophilic Stippling 2+ Anisocytosis PRESENT Target Cells 2+ [place] Bodies 1+ Sodium Level 143 mmol/L Potassium Level 3.4 mmol/L Chloride Level 103 mmol/L Carbon Dioxide Level 29 mmol/L Anion Gap 11.0 mmol/L Blood Urea Nitrogen 37 mg/dl Creatinine 4.50 mg/dl Est Creatinine Clear Calc Drug Dose 15.5 ml/min Estimated GFR () 16.4 Estimated GFR (Non- 14.2 BUN/Creatinine Ratio 8.1 Random Glucose 192 mg/dl Calcium Level 7.0 mg/dl Assessment and Plan 1. Sepsis with bacteremia: improving, postop wound infection considered a likely source. Continue IV antibiotics. 2. postop wound infection: continue antibiotics, f/u wound care, f/u ID 3. ESRD on HD: tolerant HD, f/u nephro consult. f/u BMP, renal dose medications 4. Chronic CHF EF 40%: continue ASA, Plavix, statin. 5. Cirrhosis: stable. 6. HTN 7) Lower Gi bleed likely due to C.Diff infection; held plavix and asa. 1 unit of PRBCs given. H& H has been stable. DVT prophylaxis: stopped heparin due to gi bleeding. I am considering that after dialysis tomorrow if everything is stable otherwise then could discharge to home.
[2016-08-20] MEDS: ATORVASTATIN 20 MG TAB PO SCH (20:53)
[2016-08-21] VITALS (29 sets, daily range): BP systolic 112–151; BP diastolic 61–85; PULSE 66–79; TEMP 36.3–36.7; O2SAT 94–97
[2016-08-21] MEDS: HYDROmorphone INJ 0.5 MG/0.5 ML SYR IV PRN ×2 (02:18→08:29)
[2016-08-21] MEDS: OXYCODONE HCL IR 5 MG TAB (IMMEDIATE RELEASE) PO PRN ×2 (04:00→14:38)
[2016-08-21 06:17] LABS: HEMATOCRIT 27.1 % (42-52); MEAN CELL VOLUME 94.1 fL (80-100); MEAN CORPUSCULAR HEMOGLOBIN 31.6 pg (25-34); MEAN CORPUSCULAR HGB CONC 33.6 g/dl (32-36); MEAN PLATELET VOLUME 11.5 fL (7.4-10.4); PLATELET COUNT 324 K/uL (130-400); RED BLOOD COUNT 2.88 M/uL (4.7-6.1); WHITE BLOOD COUNT 30.58 K/uL (4.8-10.8)
[2016-08-21 06:48] LABS: ANISOCYTOSIS PRESENT; COMPLETE YES; HOWELL-JOLLY BODIES OCCASIONAL; LYMPH ABS # 1.62 K/uL (1.2-3.4); LYMPHOCYTE % 5.3 %; META ABS # 0.28 K/uL (0-0); METAMYELOCYTE % 0.9 %; NEUTROPHILS % 89.4 %; POLYCHROMASIA 1+; TARGET CELLS 2+
[2016-08-21 06:57] LABS: BUN/CREATININE RATIO 8.8 (10-20); CALCIUM 7.2 mg/dl (8.5-10.1); POTASSIUM 3.2 mmol/L (3.5-5.1)
[2016-08-21] MEDS ORDERED: EPOETIN ALFA 10,000 UNITS/ML VIAL IV. SCH (08:00)
[2016-08-21] MEDS ORDERED: SODIUM CHLORIDE 0.9% 1000ML 1,000 ML IV PRN (08:00)
[2016-08-21] MEDS ORDERED: HEPARIN SOD (PORCINE) 1000 UNIT/ML 10 ML VIAL IV SCH (08:00)
[2016-08-21] MEDS: SACCHAROMYCES BOUL (FLORASTOR) 250 MG CAP PO SCH (08:26)
[2016-08-21] MEDS: PSYLLIUM 58.6% PWD PACK S\\F PO SCH (08:27)
[2016-08-21] MEDS: NEPHROCAPS PO SCH (08:27)
[2016-08-21] MEDS: PANTOprazole SOD 40 MG TAB PO SCH (08:27)
[2016-08-21] MEDS: VANCOMYCIN HCL 125 MG/2.5ML SOLN PO SCH ×3 (08:28→16:50)
[2016-08-21] MEDS: RASPBERRY SYRUP 5 ML UDP PO SCH ×3 (08:28→16:50)
[2016-08-21] MEDS: CINACALCET 30 MG TAB PO SCH (08:28)
--- NOTE | 2016-08-21 10:17 | NEPHROLOGY PROGRESS NOTE ---
DATE: 08/21/2016 DATE: 08/21/2016. SUBJECTIVE: Mr. Segura says that he is feeling quite well. He denies having any problems with shaking chills or sweats. He denies having any chest pain, cough or wheezing. He has no particular upper respiratory tract complaints. He says that he continues to have occasional loose stools. According to the record, he had 4 yesterday. However, he denies having any abdominal pain or nausea and says that his appetite is good. He has no specific symptoms of uremia or volume overload. He hopes that he can go home soon. OBJECTIVE: GENERAL: On physical exam, Mr. Segura appears chronically ill but otherwise relatively well. He is awake, alert, oriented and quite appropriate. There is no sign of confusion. VITAL SIGNS: His temperature is 36.5, his blood pressure 129/80, his pulse 70 and regular, respiratory rate 16, his pulse ox 94-100% on room air. SKIN: Shows a sallow complexion. He has multiple scars from prior surgical procedures. Skin turgor is normal. There is no rash or infiltrative skin disease. He has a right upper quadrant wound that is dressed and does not appear to be draining at this point. LYMPHATICS: Show no palpable lymphadenopathy. HEAD: Normal. EYES: Grossly normal. He has no conjunctival icterus. EARS, NOSE, MOUTH AND THROAT: All unremarkable. His dentition is in very poor repair. Oral mucous membranes are moist. NECK: Supple. He has no jugular venous distention, carotid bruit or thyromegaly. CHEST: Clear to auscultation. There are no wheezes, rales or rhonchi. CARDIAC EXAMINATION =: Shows a regular rhythm. S1 and S2 are normal. There is a systolic murmur at the base radiating toward the neck. ABDOMEN: Shows a right upper quadrant and bilateral lower quadrant scars. He has a right lower quadrant hernia. His renal graft is palpable in the right lower quadrant. It is nontender and there is no bruit over the graft. There is no other organomegaly or mass. Bowel sounds are present. EXTREMITIES: Show no cyanosis, clubbing or significant peripheral edema. He has a left forearm AV fistula which is functioning well with a good pulse, thrill and bruit. He has no significant joint swelling. NEUROLOGIC EXAMINATION: Shows no lateralizing changes. He has no asterixis and as noted above and is oriented in 3 spheres. PERTINENT LABORATORY WORK: From today shows a white blood cell count of 30,580, his hemoglobin is 9.1. His hematocrit 27.1, his platelet count 324,000. His clinical chemistries from today show a sodium of 143 mmol/L, potassium 3.2 mmol/L, chloride is 104 mmol/L, and CO2 content 28 mmol/L. His BUN is 53, his creatinine 6.00. His serum calcium is 7.2. ASSESSMENT: Mr. Segura seems stable and is anxious to go home. He still has some diarrhea and has been C. difficile toxin positive. At the current time, he appears to be relatively euvolemic. His blood pressure is controlled and he is not having any symptoms of his known coronary disease. RECOMMENDATIONS: Purely from the renal standpoint, it seems to me that he would be capable of going home to continue his current program. He should be discharged on his usual medications (as outlined by infectious disease) his Keflex 500 mg daily as well as vancomycin 125 mg q.i.d. orally for the management of his C. diff. The vancomycin should continue for a period of about 2 weeks after he discontinues his Keflex. I would be more than happy to continue to follow him each of his medical issues as I follow him in the outpatient dialysis unit.
[2016-08-21] MEDS ORDERED: EPOETIN ALFA 20,000 UNITS/ML VIAL IV. SCH (11:45)
[2016-08-21] MEDS ORDERED: PRED10TA PO (13:50)
[2016-08-21] MEDS ORDERED: CEPH500C2 PO (13:50)
[2016-08-21] MEDS ORDERED: VNCS125 PO (13:50)
--- NOTE | 2016-08-21 13:57 | Discharge Instructions ---
Discharge Instructions Admission Reason for Admission: Bacteremia, Esrd Discharge Discharge Diagnosis / Problem: C.diff colitis, wound infection. Discharge Goals Goal(s): Decrease discomfort, Improve disease control Activity Recommendations Activity Limitations: resume your previous activity . Instructions / Follow-Up Instructions / Follow-Up We stopped Imdur (isosorbide) and Metoprolol because in the hospital your blood pressure and heart rate were low. As you continue to recover, ask your PCP at the next visit if these are able to be restarted. Follow up with PCP in 5-7 days. Continue dialysis according to your usual schedule. Current Hospital Diet Patient's current hospital diet: Regular Diet Discharge Diet Recommended Diet: Regular Diet Procedures Procedures Performed: NONE. Pending Studies Studies pending at discharge: no Medical Emergencies . Who to Call and When: Medical Emergencies: If at any time you feel your situation is an emergency, please call 911 immediately. . Non-Emergent Contact Non-Emergency issues call your: Primary Care Provider . . "Provider Documentation" section prepared by Anand Delgado. VTE Core Measure Inpt VTE Proph given/why not?: Unfractionated heparin SQ
[2016-08-21] MEDS: CEFAZOLIN IV 1,000 MG in DEXTROSE 5% 50ML 50 ML IV SCH (15:34)
--- NOTE | 2016-08-22 02:11 | DISCHARGE SUMMARY ---
ADMITTING DIAGNOSES: 1. Fever and leukocytosis. 2. End-stage renal disease, on dialysis. 3. Coronary artery disease. 4. Cirrhosis. 5. Congestive heart failure. DISCHARGE DIAGNOSES: 1. Sepsis with bacteremia. 2. Postop wound infection. 3. Hypertension with actually development of hypotension. 4. Lower gastrointestinal bleeding. 5. Clostridium difficile colitis. 6. Chronic congestive heart failure with an ejection fraction of 40%. COMPLICATIONS: None. PROCEDURES: None. CONSULTATIONS: 1. Gastroenterology, Joan Melara PA-C; and Dr. Isreal Sibley. 2. Dr. Allan Beltran, radiologic technology program director. 3. Dr. Todd Azevedo, nephrology. 4. Dr. Vesna Tillman, infectious disease. HOSPITAL COURSE: The patient was initially placed in the intensive care unit because of hypertension. 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 He tells me that it is because of kidney transplant. The patient was treated with IV antibiotics and IV hydrocortisone. He did initially require Levophed and he was placed on DVT prophylaxis in the form of heparin. The patient was able to continue his dialysis therapies while an inpatient. Nephrology followed along throughout the course of the hospital stay. The patient stabilized and on the August 16 the patient was able to be transitioned out of the ICU into a step down unit. At this point, the patient started to develop some degree of confusion which continued over the next 4 days. The patient then developed diarrhea and his stool for C. diff was positive and he was placed on oral vancomycin. His abdominal wound culture was growing group A strep and methicillin-sensitive Staph aureus. I took over care of patient on WednesdayAugust 17, at which point patient had been improving, was on IV heparin here, heparin for DVT prophylaxis. Later on that first day a nurse called me that patient was having bright red blood per rectum, therefore, I stopped any medications that would have been contributing to lower GI bleed including the heparin, baby aspirin and Plavix. GI was consulted and his H\T\H was followed. He received a total of 1 unit of packed red blood cells. The lowest that his hemoglobin got was 8.2 and rebounded to 9.2 following the transfusion. On the day discharge his hemoglobin was 9.1. Just to document the cultures that he had, 2 blood cultures were performed on August 13, there was no growth on either. A stool culture C. diff positive, and then wound culture from incision site showed group A beta strep and staph aureus that was methicillin-sensitive. He did not have any fracture bleeding and it was felt that the blood was from irritation due to the C. diff that in addition to the heparin, aspirin and Plavix. Following that patient made steady improvements each day and started to really clear from mentation standpoint. Once we were able to solidify his antibiotic regimen, he was then down to simply Ancef 1 g daily IV and at which point would be able to changed to Keflex 500 mg q. 24 at the time of discharge. The patient's blood pressures had improved, but never became elevated, therefore, home medications to include isosorbide, metoprolol were not able to be restarted and that there was concern that he would become hypotensive or bradycardic. For complete list of his medications, please refer to the patient's discharge instructions. This also contains his followup visits and instructions. His new medications at discharge were; Keflex 500 mg daily for 14 days, vancomycin 125 mg q.i.d. for 28 days, and prednisone tablets 10 mg daily, I gave him enough for 30 days and even though that is not listed on his medications that I could even find from his admission, he does tell me that he takes 5 mg daily, so I told him to return to that dosing at which time his family physician is able to make that recommendation. So, on the date of 08/21/2016, shortly after he finished dialysis that day, patient was feeling well and was very happy to be leaving the hospital in good spirits. I will make a note of observation, it is nothing more than for future reference, that patient continued to run an elevated white blood cell count in 30,000 range. There was discussion that with patient's longstanding transplant and profound immunologic history, there is risk for lymphoproliferative disease which in this patient's case would fit very logically into that category. Furthermore despite treatment with antibiotics, his white count never got below 29,000 and had it highest 37,000. The patient was discharged to home. I specifically asked if he was interested or felt that he needed home health services, he did not; with his chronic medical conditions, he has a number of devices and medical equipment already in place. He is and lives with his , it was a help to him. After discharge preparations had been made including printouts, patient requested a script for his oxycodone which he is noted to have taken for intermittent pain as the weekend was coming and that he was not able to get into his PCP, so I did write a hand-written script for oxycodone 5 mg which he uses 1 every 8 hours as needed for pain, #20 and 0 refills. REVIEW OF SYSTEMS: A complete 10-system review was performed, all of which was negative. PHYSICAL EXAMINATION: VITAL SIGNS: His vital signs at discharge showed temperature of 36.5, pulse 68, respiratory rate of 16, sats 97% on room air, and blood pressure 135/76. GENERAL: The patient was awake, alert and oriented x3. HEENT: TMs intact. No inflammation. Extraocular muscles intact. Pupils are equal, round and reactive to light and accommodation. Mucous membranes are moist. Throat was clear. NECK: No JVD or lymphadenopathy. LUNGS: Clear to auscultation bilaterally. No rales, rhonchi or wheezes. HEART: Regular. Normal S1, S2 without murmurs, rubs or gallops. ABDOMEN: Soft, there was some tenderness around where the abdominal wound was, it did have dressing in place and was dry. EXTREMITIES: No clubbing, cyanosis or edema. He has a fistula on the left upper extremity. NEUROLOGIC: Cranial nerves II-XII are grossly intact and nonfocal. SKIN: No rashes. He has multiple bruises which are from his antiplatelet medications, and he also appears to have a dark coloration to his skin that I would not describe as jaundice, it more represents to me the coloring that occurs with patient that have adrenal insufficiency, and I would defer that to endocrinology. I spent over 30 minutes, actually around 1-1/2 hour on discharge proceedings which included dictations, documentation, reviewing medications, discussing with consultants and talking and examining patient.
[2016-09-14] MEDS ORDERED: VNCS125 PO (10:41)
[2016-11-21] MEDS ORDERED: CPC PO (11:42)
[2016-12-13] MEDS ORDERED: IMDSR60 PO (11:26)
== END 2016-08-21 17:55 | disposition home or self-care (01) | DRG 862 ==
LOC: ENRESERVDT → ENRESERVTM → CANRESERV → C.EDB 19:07 → C.MSICU 08-14 00:09 → UNDOADMIN 08-14 00:09 → EDBEDREQSVC 08-14 00:17 → C.2T 08-15 18:17 → C.MSICU 08-15 18:17 → C.2T 08-15 18:36 → C.MSICU 08-15 20:51
PROVIDERS: ADMIT Internal Medicine; ATTEND Hospitalist
DX: T81.4XXA Infection following a procedure, initial encounter (principal); R65.21 Severe sepsis with septic shock; N18.6 End stage renal disease; T81.31XA Disruption of external operation (surgical) wound, not elsewhere classified, initial encounter; I50.22 Chronic systolic (congestive) heart failure; I13.2 Hypertensive heart and chronic kidney disease with heart failure and with stage 5 chronic kidney disease, or end stage renal disease; A04.7 Enterocolitis due to Clostridium difficile; K92.2 Gastrointestinal hemorrhage, unspecified; B95.61 Methicillin susceptible Staphylococcus aureus infection as the cause of diseases classified elsewhere; I95.9 Hypotension, unspecified; R41.0 Disorientation, unspecified; I25.10 Atherosclerotic heart disease of native coronary artery without angina pectoris; K74.60 Unspecified cirrhosis of liver; K43.9 Ventral hernia without obstruction or gangrene; I45.81 Long QT syndrome; Y83.8 Other surgical procedures as the cause of abnormal reaction of the patient, or of later complication, without mention of misadventure at the time of the procedure; Z99.2 Dependence on renal dialysis; Z90.49 Acquired absence of other specified parts of digestive tract; Z95.1 Presence of aortocoronary bypass graft; Z79.02 Long term (current) use of antithrombotics/antiplatelets; Z79.1 Long term (current) use of non-steroidal anti-inflammatories (NSAID); Z79.82 Long term (current) use of aspirin; Z79.899 Other long term (current) drug therapy; Z88.6 Allergy status to analgesic agent; Z82.49 Family history of ischemic heart disease and other diseases of the circulatory system; R78.81 Bacteremia

== ENCOUNTER 2016-09-11 07:05 | Inpatient (IN) | payer OTHER ==
[2016-09-11] VITALS (20 sets, daily range): BP systolic 108–133; BP diastolic 57–83; PULSE 80–118; TEMP 36.5–37.4; O2SAT 86–97; Ht 167.6 cm; Wt 59.1 kg
[~2016-09-11] VITALS: Ht 167.6 cm; Wt 59.1 kg
[~2016-09-11 07:05] MED LIST changes: +ASPI81TA28 PO; +B-CO1CAP17 PO; -B-COCAP2 PO; +CINA0.42 PO; -CLOP1TAB15 PO; -IMDSR60 PO; +LPT/20 PO; -METO-217 PO; -METO1TAB69 PO; -OXYC1TAB3 PO; +PLV75 PO; +PRED10TA PO; +PRT/40 PO; +PSYL48.59 PO; -PSYL55.43 PO; +VNCS125 PO
[2016-09-11] MEDS ORDERED: ACETAMINOPHEN 500 MG TAB PO STA (07:13)
[2016-09-11] MEDS ORDERED: SODIUM CHLORIDE 0.9% 1000ML 1,000 ML IV STA (07:14)
[2016-09-11] MEDS ORDERED: SODIUM CHLORIDE 0.9% 1000ML 250 ML IV STA (07:14)
[2016-09-11] MEDS ORDERED: PIPERACILLIN/TAZOBACTAM 4.5 GM/100ML D5W IV STA (07:14)
[2016-09-11] MEDS ORDERED: VANCOMYCIN 1GM/270ML NSS IV STA (07:22)
--- NOTE | 2016-09-11 07:39 | DIAGNOSTIC IMAGING REPORT ---
SINGLE VIEW CHEST CLINICAL HISTORY: Sepsis. FINDINGS: An AP, portable, upright chest radiograph is compared to study dated 08/13/2016. The examination is degraded by portable technique and patient rotation. The patient is status post midline sternotomy. The heart is enlarged and there is atherosclerotic calcification of the thoracic aorta. There is pulmonary vascular congestion. Small pleural effusions are identified. No airspace consolidation is seen typical for pneumonia. No pneumothorax is identified. The skeletal structures are osteopenic. A benign-appearing sclerotic focus is again seen in the left humeral head. Surgical clips are present in the upper abdomen. IMPRESSION: 1. Cardiomegaly with evidence of congestive failure. 2. Small pleural effusions are noted. Electronically signed by: Neil Don M.D. 09/11/2016 7:38 AM Dictated Date/Time: 09/11/2016 7:37 AM
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
[2016-09-11 08:11] LABS: BASO % 0.2 %; BASO ABS # 0.02 K/uL (0-0.2); EOS % 0.3 %; HEMATOCRIT 29.7 % (42-52); IG% 1.2 %; LYMPH % 22.9 %; LYMPH ABS # 2.15 K/uL (1.2-3.4); MEAN CELL VOLUME 98.3 fL (80-100); MEAN CORPUSCULAR HEMOGLOBIN 31.1 pg (25-34); MEAN CORPUSCULAR HGB CONC 31.6 g/dl (32-36); NEUT % 69.4 %; PLATELET COUNT 665 K/uL (130-400); RED BLOOD COUNT 3.02 M/uL (4.7-6.1); WHITE BLOOD COUNT 9.39 K/uL (4.8-10.8)
[2016-09-11 08:43] LABS: ANISOCYTOSIS PRESENT; COMPLETE YES; HOWELL-JOLLY BODIES OCCASIONAL; POLYCHROMASIA 1+; SPHEROCYTE OCCASIONAL; TARGET CELLS 2+
[2016-09-11 08:45] LABS: ALB/GLOB RATIO 0.4 (0.9-2); BUN/CREATININE RATIO 5.7 (10-20); CALCIUM 7.3 mg/dl (8.5-10.1); CREATININE 5.8 mg/dl (0.60-1.40); POTASSIUM 4.6 mmol/L (3.5-5.1)
[2016-09-11 08:57] LABS: INR 1.2 (0.9-1.1); PARTIAL THROMBOPLASTIN RATIO 1.2
[2016-09-11] MEDS ORDERED: ACETAMINOPHEN 325 MG TAB PO PRN ×2 (09:30→16:45)
--- NOTE | 2016-09-11 09:46 | History and Physical ---
History & Physical Date & Time of Service: Sep 11, 2016 at 09:35 Chief Complaint: Chest/ Back Pain Primary Care Physician: Todd Azevedo M.D. History of Present Illness Source: patient, family This is a 51 yo M with PMHx of recent sepsis secondary to c. difficile colitis, ESRD on HD s/p 3 kidney transplants, hx [place], CAD s/p CABG with 3 stents placed in 2008 on plavix, HTN, liver cirrhosis, CHF with LVEF= 40%, hx gi bleed, and post cholecystectomy abdominal wound. The patient presents today after developing diarrhea and vomiting around 0300 this morning. His is present at bedside. The patient notes he developed fevers and chills around the same time but did not take his temperature at home. He has had at least 4 bowel movements since that time and 3 episodes of vomiting. Pt denies hematemesis, coffee ground emesis, BRBPR (although reports this is unusual as he also has a hx of hemorrhoids), or black/tarry stools. He denies abdominal pain or cramping although is complaining of "gas bubbles" which are painful. He is requesting ice chips. He admits to feeling significantly weaker and more fatigued today. He ambulates without assistance normally. The patient was at dialysis this morning per routine on [facility] and underwent 15 minutes of dialysis. He was not able to tolerate it due to diarrhea/vomiting and developed chest pain at that time so was sent to the ED. He was given a nitro tab at that time. He is also reporting developing chest tightness/ pain with ambulating to the bathroom in the ED. He denies having the pain at rest. He denies feeling short of breath, lightheaded, dizzy or having palpitations. The patient was recently admitted to [facility] for similar presentation from 08/14- where he required ICU admission for hypertension. It was likely that adrenal insufficiency was playing a part because the pt has been on lifelong sterids d/ t kidney transplant. Pt reports taking 5 mg daily. During that admission the pt acutely developed confusion, diarrhea and c. diff was found to be positive. Abd wound at that time was group A strep positive was was placed on keflex 500 mg daily x 14d which he reports has 1 day or so left. The patient was given Vanc PO 125 mg QID to complete a 28 day course and finished this 2 days ago on 09/09. Here in the ED Tmax=39.5, HRmax= 121, BP 125/84-149/88, pt is on 2 L O2 and normally does not require at baseline. WBC=9.39, Hgb 9.4, nkj=735, + left shift, AG= 12, Cr. 5.8, BUN 33. Lactic acid elevated at 3.19, Albumin is 1/9, Alk phose elevated at 278. EKG showing new ST wave inversion in lead II, III. CXR was completed showing cardiomegaly with evidence of congestive failure and small pleural effusions. Past Medical/Surgical History Medical Problems: (1) Acute respiratory failure Status: Resolved (2) CAD (coronary artery disease) Status: Chronic (3) Chronic systolic CHF (congestive heart failure) Status: Chronic (4) End-stage renal disease on hemodialysis Status: Chronic (5) HTN (hypertension) Status: Chronic (6) Liver cirrhosis Status: Chronic (7) WI (myocardial infarction) Status: Chronic (8) Syncope Status: Resolved Surgical Problems: (1) History of renal transplant Status: Chronic (2) Hx of CABG Status: Resolved Family History FH: heart disease Social History Smoking Status: Never Smoker Drug Use: none Marital Status: Housing status: lives with family Occupational Status: employed, disabled Immunizations History of Influenza Vaccine: No Influenza Vaccine Date: May 03, 2008 History of Tetanus Vaccine?: Unknown Tetanus Immunization Date: Oct 06, 2000 History of Pneumococcal: No Pneumococcal Date: Oct 06, 2005 History of Hepatitis B Vaccine: Unknown Hepatitis Immunization Date: Oct 06, 2000 Multi-Drug Resistant Organisms History of MDRO: No Allergies Coded Allergies: POLLEN (Verified Allergy, Unknown, "HAYFEVER", 09/11/16) Diazoxide (Verified Adverse Reaction, Intermediate, ELEVATE BP;N&V, ) NSAIDs (Verified Adverse Reaction, Unknown, KIDNEY TRANSPLANT, 09/11/16) Home Medications Scheduled Aspirin (Aspirin Ec), 81 MG PO DAILY Atorvastatin (Atorvastatin Calcium), 20 MG PO HS Cinacalcet Hydrochloride (Sensipar), 30 MG PO QAM Clopidogrel Bisulfate (Clopidogrel), 75 MG PO DAILY Pantoprazole (Pantoprazole Sodium), 40 MG PO BID Prednisone Tab (Prednisone), 10 MG PO DAILY Psyllium (Metamucil), 1 PKT PO DAILY Vitamin B Cmplx/Vitc/Folic Ac (Nephrocaps), 1 CAP PO DAILY Scheduled PRN Oxycodone HCl (Oxycodone HCl), 5 MG PO Q8 PRN for Pain Review of Systems 10 point ROS was reviewedand otherwise negative than listed as per HPI. Physical Exam Vital Signs Date Time Temp Pulse Resp B/P Pulse Ox O2 Delivery O2 Flow Rate FiO2 09/11/16 08:46 93 Nasal Cannula 2.0 09/11/16 08:37 39.5 09/11/16 08:10 108 22 149/88 94 Room Air 09/11/16 07:10 121 09/11/16 07:07 97 Room Air 09/11/16 07:07 39.5 98 18 165/84 97 Room Air 09/11/16 07:07 97 Room Air General Appearance: + mild distress, + thin Head: normocephalic, atraumatic Eyes: PERRL, EOMI ENT: hearing grossly normal, pharynx normal, + pertinent finding (poor dentition, dry MM. ) Neck: supple, no JVD Respiratory/Chest: chest non-tender, lungs clear (not diminished at bases), no respiratory distress, no accessory muscle use, + pertinent finding (wearing 2 L O2 via NC) Cardiovascular: no JVD, normal peripheral pulses, + tachycardia Abdomen/GI: + pertinent finding (multiple scars over abdomen. + RUQ tunneling abdominal wound, no drainage, nonerythematous, no pain with palpation around the are. + Generalized mild tenderness in LUQ/epigastric region. no rebound guarding. No organomegaly. ) Back: normal inspection Extremities/Musculoskelatal: no calf tenderness, no pedal edema Neurologic/Psych: alert, normal mood/affect, oriented x 3 Skin: normal color, warm/dry Diagnostics Laboratory Results Results Past 24 Hours Test 09/11/16 07:58 09/11/16 08:05 09/11/16 08:40 Range/Units White Blood Count 9.39 4.8-10.8 K/uL Red Blood Count 3.02 4.7-6.1 M/uL Hemoglobin 9.4 14.0-18.0 g/dL Hematocrit 29.7 42-52 % Mean Corpuscular Volume 98.3 80-100 fL Mean Corpuscular Hemoglobin 31.1 25-34 pg Mean Corpuscular Hemoglobin Concent 31.6 32-36 g/dl Platelet Count 665 130-400 K/uL Mean Platelet Volume 10.0 7.4-10.4 fL Neutrophils (%) (Auto) 69.4 % Lymphocytes (%) (Auto) 22.9 % Monocytes (%) (Auto) 6.0 % Eosinophils (%) (Auto) 0.3 % Basophils (%) (Auto) 0.2 % Neutrophils # (Auto) 6.52 1.4-6.5 K/uL Lymphocytes # (Auto) 2.15 1.2-3.4 K/uL Monocytes # (Auto) 0.56 0.11-0.59 K/uL Eosinophils # (Auto) 0.03 0-0.5 K/uL Basophils # (Auto) 0.02 0-0.2 K/uL RDW Standard Deviation 73.4 36.4-46.3 fL RDW Coefficient of Variation 20.7 11.5-14.5 % Immature Granulocyte % (Auto) 1.2 % Immature Granulocyte # (Auto) 0.11 0.00-0.02 K/uL Nucleated RBC Absolute Count (auto) 0.72 0-0 K/uL Nucleated Red Blood Cells % 7.7 % Polychromasia 1+ Anisocytosis PRESENT Spherocytes OCCASIONAL Pappenheimer Bodies OCCASIONAL Target Cells 2+ Carter-Chalkhill Bodies OCCASIONAL Sodium Level 144 136-145 mmol/L Potassium Level 4.6 3.5-5.1 mmol/L Chloride Level 105 98-107 mmol/L Carbon Dioxide Level 26 21-32 mmol/L Anion Gap 13.0 3-11 mmol/L Blood Urea Nitrogen 33 7-18 mg/dl Creatinine 5.80 0.60-1.40 mg/dl Est Creatinine Clear Calc Drug Dose 13.7 ml/min Estimated GFR () 12.1 Estimated GFR (Non- 10.4 BUN/Creatinine Ratio 5.7 10-20 Random Glucose 87 70-99 mg/dl Calcium Level 7.3 8.5-10.1 mg/dl Total Bilirubin 0.5 0.2-1 mg/dl Aspartate Amino Transf (AST/SGOT) 31 15-37 U/L Alanine Aminotransferase (ALT/SGPT) 16 12-78 U/L Alkaline Phosphatase 278 45-117 U/L Total Protein 7.1 6.4-8.2 gm/dl Albumin 1.9 3.4-5.0 gm/dl Globulin 5.2 2.5-4.0 gm/dl Albumin/Globulin Ratio 0.4 0.9-2 Chemistry Specimen Hemolysis Bedside Lactic Acid Venous 3.19 0.90-1.70 mmol/L Prothrombin Time 13.0 9.0-12.0 SECONDS Prothromb Time International Ratio 1.2 0.9-1.1 Activated Partial Thromboplast Time 31.5 21.0-31.0 SECONDS Partial Thromboplastin Ratio 1.2 Microbiology Results 09/11/16 Blood Culture, Received Pending 09/11/16 Blood Culture, Received Pending 09/11/16 C.difficile Toxin B Gene (PCR), Power Batch Pending Diagnostic Radiology SINGLE VIEW CHEST CLINICAL HISTORY: Sepsis. FINDINGS: An AP, portable, upright chest radiograph is compared to study dated 08/13/2016. The examination is degraded by portable technique and patient rotation. The patient is status post midline sternotomy. The heart is enlarged and there is atherosclerotic calcification of the thoracic aorta. There is pulmonary vascular congestion. Small pleural effusions are identified. No airspace consolidation is seen typical for pneumonia. No pneumothorax is identified. The skeletal structures are osteopenic. A benign-appearing sclerotic focus is again seen in the left humeral head. Surgical clips are present in the upper abdomen. IMPRESSION: 1. Cardiomegaly with evidence of congestive failure. 2. Small pleural effusions are noted. Electronically signed by: Neil Don M.D. 09/11/2016 7:38 AM Dictated Date/Time: 09/11/2016 7:37 AM The status of this report is Signed. EKG Vent. rate 100 BPM SC interval 132 ms QRS duration 90 ms QT/QTc 374/482 ms P-R-T axes 28 -[address] wave inversions in leads II and AVF since last EKG completed in 08/18/16. + PVCs Old inferior infarct seen. RBBB no longer present. Impression Assessment and Plan This is a 51 yo M with PMHx of recent sepsis secondary to c. difficile colitis, ESRD on HD s/p 3 kidney transplants, hx [place], CAD s/p CABG with 3 stents placed in 2008 on plavix, HTN, liver cirrhosis, CHF with LVEF= 40%, hx gi bleed, and post cholecystectomy abdominal wound. Sepsis likely secondary to gastrointestinal source - Admit to tele for now, low threshold for higher level of care - Lactic acid was 3.19 at time of admission, recheck at 1100 - Unknown source but possibly c. diff as just finished abx course x 28 days on . Has been c. diff positive in the past prior to last admit as well - Follow stool studies, contact precautions - Checking abdominal wound for group A strep as was seen during last admission- pt was finishing course of keflex - Got doses of vanc/zosyn in the ED, continue for now until recs per ID. - IVFs running at 125mL/hr x 12 hours. - ID consulted for antibiotic regimen - Pain control with oxycodone 5 mg Q4H, will add on dilaudid 1 mg Q4H prn. ESRD on HD s/p 3 kidney transplants on chronic prednisone 5 mg daily - Hold prednisone, will give hydrocortisone 100 mg Q8H for now in the setting of sepsis - Consulted nephrology - was in HD this morning for 15 min but couldnt tolerated. Normal schedule MWF. - K.6, Cr. =5.8, BUN=33 Chest pain CAD x 3 stents in 2008 Previous WI HTN - Added troponin onto morning labs as was not drawn initially, will trend x 3 with CKMB - EKG concerning for new ST wave inversion in leads II and III compared with previous on 08/18/16. - Consult cardiology - Elevated HR into the 120s at time of admission, HR currently in the 90s, BP stable - Cont statin and plavix at this time Abdominal Wound s/p cholecystectomy January 2016 Elevated Alk phos- 278 - follow with am labs puneet. - Pt is s/p cholecystectomy where pt reports gallbladder adhered to the liver. - Wound culture from last admission grew out group A strep, no reculture at this time as incision is healing well, no drainage, nontender surrounding area. Low suspicion that this is the source of infection. Hx GI bleed - Continue plavix at this time, will heme check stool - hgb stable at 9.4 - has not been on ppi as outpatient - note that could predispose to c. diff DVT ppx: on plavix, SCDs CODE STATUS: FULL CODE Disposition: From home, CM to assist, refused home health services during most recent admission. Level of Care Telemetry Resuscitation Status FULL RESUSCITATION VTE Prophylaxis VTE Risk Assessment Done? Y/N: Yes Risk Level: Very Low Given or contraindicated: Other Anticoagulation, SCD's
[2016-09-11] MEDS ORDERED: ACETAMINOPHEN 325 MG TAB PO STA (10:03)
[2016-09-11] MEDS ORDERED: OXYCODONE HCL IR 5 MG TAB (IMMEDIATE RELEASE) PO PRN (10:15)
[2016-09-11] MEDS ORDERED: ONDANSETRON INJ 2 MG/ML 2 ML VIAL ONE (10:24)
[2016-09-11] MEDS ORDERED: SODIUM CHLORIDE 0.9% 1000ML 1,000 ML IV PRN (10:33)
[2016-09-11] MEDS ORDERED: EPOETIN ALFA 10,000 UNITS/ML VIAL IV. ONE (10:45)
[2016-09-11] MEDS ORDERED: HEPARIN SOD (PORCINE) 1000 UNIT/ML 10 ML VIAL IV SCH (10:45)
[2016-09-11] MEDS ORDERED: VANCOMYCIN CONSULT ACTIVE PRN (11:00)
[2016-09-11] MEDS ORDERED: ALUMINUM/MAGNESIUM/SIMETH (MAALOX MAX) 30 ML UDC PO PRN (11:00)
[2016-09-11] MEDS ORDERED: PIPERACILL/TAZOBAC CONSULT ACTIVE PRN (11:00)
[2016-09-11] MEDS: HYDROmorphone INJ 1 MG/ML SYR IM PRN ×2 (11:10→21:29)
[2016-09-11] MEDS ORDERED: EPOETIN ALFA INJ 5,000 UNITS in SYRINGE 0 ML IV. SCH (11:15)
--- NOTE | 2016-09-11 11:28 | Pharmacy Progress Note ---
Pharmacy Antibiotic Consult Date of Service: Sep 11, 2016. Pharmacy Dosing Scope Pharmacy is consulted to initiate Vancomycin and Zosyn IV dosing therapy, order appropriate labs and adjust drug dose/frequency. Subjective The patient is a 51 year old male admitted on Sep 11, 2016 at 09:34 with sepsis , GI Source, abdominal wound, history of Group A strep, also recent admission -08/21/16 for CDiff - discharged on PO Keflex and PO Vancomycin x 14 days. Objective Height (Feet): 5 Height (Inches): 6.00 Weight (Kilograms): 64.400 Lab Results (24hrs): Laboratory Tests Test 09/11/16 07:58 BUN/Creatinine Ratio 5.7 Blood Urea Nitrogen 33 mg/dl Creatinine 5.80 mg/dl White Blood Count 9.39 K/uL Red Blood Count 3.02 M/uL Hemoglobin 9.4 g/dL Hematocrit 29.7 % Mean Corpuscular Volume 98.3 fL Mean Corpuscular Hemoglobin 31.1 pg Mean Corpuscular Hemoglobin Concent 31.6 g/dl Platelet Count 665 K/uL Mean Platelet Volume 10.0 fL Neutrophils (%) (Auto) 69.4 % Lymphocytes (%) (Auto) 22.9 % Monocytes (%) (Auto) 6.0 % Eosinophils (%) (Auto) 0.3 % Basophils (%) (Auto) 0.2 % Neutrophils # (Auto) 6.52 K/uL Lymphocytes # (Auto) 2.15 K/uL Monocytes # (Auto) 0.56 K/uL Eosinophils # (Auto) 0.03 K/uL Basophils # (Auto) 0.02 K/uL Micro Results: Item Value Date Time WBC Smear Received 09/11/16 1016 Stool Pending C.difficile Toxin B Gene (PCR) Received 09/11/16 1016 Stool Pending Blood Culture Received 09/11/16 0758 Blood Pending Blood Culture Received 09/11/16 0740 Blood Pending C.difficile Toxin B Gene (PCR) Power Batch 09/11/16 0714 Stool Pending Recent Pertinent Medications Vancomycin 1g IV x1 in ED at 0900 Zosyn 4.5g IV x1 in ED at 0800 Assessment & Plan VANCOMYCIN: Patient on HD, receiving today at 1200. Patient already received 1 dose of Vancomycin 1g IV in the ED this morning, I will just give patient a supplemental dose after HD today and check random level in the morning. HD schedule unknown at this time while inpatient. Vancomycin 500 mg IV today around 1600, after HD session. Goal trough level estimate: between 15 - 20 mcg/mL for sepsis, GI source. Random level has been ordered for: with AM labs. ZOSYN: 3.375g IV Q12H for pt on HD. Pharmacy will continue to follow and will adjust dose/frequency as necessary. Thank you
[2016-09-11] MEDS: SODIUM CHLORIDE 0.9% 1000ML 1,000 ML IV SCH ×3 (12:03→21:14)
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
[2016-09-11] MEDS: HYDROCORTISONE IV 100 MG in SYRINGE 0 ML IV SCH ×2 (13:48→21:14)
[2016-09-11] MEDS: VANCOMYCIN HCL 125 MG/2.5ML SOLN PO SCH ×3 (13:48→21:13)
[2016-09-11] MEDS: RASPBERRY SYRUP 5 ML UDP PO SCH ×3 (13:49→21:13)
[2016-09-11 14:58] LABS: POINT OF CARE PRO-BNP > 20000 pg/ml (0-900)
--- NOTE | 2016-09-11 15:13 | Cardiology Consultation ---
Cardiology Consultation Date of Consultation: Sep 11, 2016. Requesting Physician: Dr. Jeffries Reason for Consultation: Chest discomfort Pt evaluation today including: conversation w/ patient, physical exam, lab review, review of studies, review of inpatient medication list History of Present Illness This is a 51-year-old gentleman with a history of end-stage renal disease (he did have a renal transplant in 1980, 1990 as well as 2010) as well as hypertension, hyperlipidemia, peripheral vascular disease and coronary artery disease. He had stent placement in 2005, then had a myocardial infarction 2008 with bypass surgery 04/30/2009 at [facility] and stenting in 2009, catheterization 2014 showed no further interview notable lesions and ejection fraction of 40%. More recently he has had strep and staph infections for which he was treated with intravenous vancomycin and Zosyn. He may also Clostridium difficile. He presents now with mostly GI symptoms of abdominal discomfort, nausea and diarrhea. He was on dialysis this morning and developed chest discomfort radiating to his back and was given nitroglycerin. He evidently looked ill although he tells me his symptoms improved and he was brought to the emergency room. Past Medical/Surgical History Medical Problems: (1) Acute respiratory failure Status: Resolved (2) CAD (coronary artery disease) Status: Chronic (3) Chronic systolic CHF (congestive heart failure) Status: Chronic (4) End-stage renal disease on hemodialysis Status: Chronic (5) HTN (hypertension) Status: Chronic (6) Liver cirrhosis Status: Chronic (7) MD (myocardial infarction) Status: Chronic (8) Syncope Status: Resolved Surgical Problems: (1) History of renal transplant Status: Chronic (2) Hx of CABG Status: Resolved Family History FH: heart disease Social History Smoking Status: Former Smoker History of Alcohol Use: Yes (OCCASIONALLY ) Review of Systems Constitutional: No fever, No weakness, No weight loss Respiratory: No cough, No dyspnea on exertion, No shortness of breath, No wheezing Cardiac: + chest pain, + see HPI, No PND, No edema, No orthopnea, No palpitations Abdomen: + nausea, + pain, No GI bleeding, No diarrhea Male : No nocturia more than once/night, No sexual dysfunction, No slowing stream, No urinary frequency Neurologic: No balance problems, No numbness/tingling, No paralysis, No weakness Heme: No abnormal bleeding/bruising, No clotting problems Endo: No fatigue Skin: No problem reported All Other Systems: Reviewed and Negative Allergies Coded Allergies: POLLEN (Verified Allergy, Unknown, "HAYFEVER", 09/11/16) Diazoxide (Verified Adverse Reaction, Intermediate, ELEVATE BP;N&V, ) NSAIDs (Verified Adverse Reaction, Unknown, KIDNEY TRANSPLANT, 09/11/16) Medications Current Inpatient Medications Medications (Trade) Dose Ordered Sig/Amanda Route Start Time Stop Time Status Last Admin Dose Admin Sodium Chloride (Nss 1000ml) 1,000 ml @ 125 mls/hr Q8H IV 09/11/16 09:26 09/11/16 21:25 09/11/16 12:03 125 MLS/HR Acetaminophen (Tylenol Tab) 650 mg Q4H PRN PO 09/11/16 09:30 10/11/16 09:29 Ondansetron HCl (Zofran Inj) 4 mg Q6H PRN IV 09/11/16 09:30 10/11/16 09:29 Aspirin (Ecotrin Tab) 81 mg DAILY PO 09/12/16 09:00 10/12/16 08:59 Atorvastatin Calcium (Lipitor Tab) 20 mg HS PO 09/11/16 21:00 10/11/16 20:59 Clopidogrel Bisulfate (plAVix TAB) 75 mg DAILY PO 09/12/16 09:00 10/12/16 08:59 Pantoprazole Sodium (Protonix Tab) 40 mg BID PO 09/11/16 21:00 10/11/16 20:59 Vitamin B Complex/ Vit C/Folic Acid (Nephrocaps) 1 cap DAILY PO 09/12/16 09:00 10/12/16 08:59 Cinacalcet (Sensipar) 30 mg QAM PO 09/12/16 09:00 10/12/16 08:59 Psyllium Hydrophilic Mucilloid (Metamucil Powder) 1 pkt DAILY PO 09/12/16 09:00 10/12/16 08:59 Oxycodone HCl 5 mg 5 mg Q4 PRN PO 09/11/16 10:15 09/25/16 10:14 Vancomycin HCl 500 mg/Sodium Chloride 260 ml @ 125 mls/hr TODAY@1600 ONCE IV 09/11/16 21:00 09/11/16 23:04 Piperacillin Sod/ Tazobactam Sod 3.375 gm/Dextrose 115 ml @ 200 mls/hr Q12@0800,2000 IV 09/11/16 20:00 09/20/16 20:35 Sodium Chloride (Nss 1000ml) 1,000 ml @ 0 mls/hr Q0M PRN IV 09/11/16 10:33 09/11/16 22:32 Hydromorphone HCl (Dilaudid Inj) 1 mg Q4 PRN IM 09/11/16 10:45 09/25/16 10:44 09/11/16 11:10 1 MG Al Hydrox/Mg Hydrox/ Simethicone 15 ml 15 ml ONE PRN PO 09/11/16 11:00 10/11/16 10:59 09/11/16 11:10 15 ML Hydrocortisone Sodium Succinate/ Syringe (Solu-Cortef IV/ Syringe) 2 ml @ 4 mls/min Q8 IV 09/11/16 14:00 10/11/16 13:59 09/11/16 13:48 4 MLS/MIN Vancomycin HCl (Consult) 1 ea UD PRN N/A 09/11/16 11:00 10/11/16 10:59 Piperacillin Sod/ Tazobactam Sod 1 ea 1 ea UD PRN N/A 09/11/16 11:00 10/11/16 10:59 Epoetin Pieter/ Syringe (Procrit Inj/ Syringe) 0.25 ml @ 1 mls/min TODAY@1115 IV. 09/11/16 11:15 09/11/16 18:00 Vancomycin HCl (Vancomycin Oral Soln) 125 mg QID PO 09/11/16 13:00 09/25/16 12:59 09/11/16 13:48 125 MG Raspberry (Raspberry Syrup 5ml Cup) 5 ml QID PO 09/11/16 13:00 09/25/16 12:59 09/11/16 13:49 5 ML Physical Exam Vital Signs Past 12 Hours Date Time Temp Pulse Resp B/P Pulse Ox O2 Delivery O2 Flow Rate FiO2 09/11/16 12:42 117 09/11/16 11:41 37.4 118 20 122/78 97 Nasal Cannula 2.0 09/11/16 11:28 37.9 09/11/16 11:15 115 20 133/78 96 Nasal Cannula 2.0 09/11/16 10:11 36.5 112 22 146/84 92 Room Air 09/11/16 10:04 106 09/11/16 08:46 93 Nasal Cannula 2.0 09/11/16 08:37 39.5 09/11/16 08:10 108 22 149/88 94 Room Air 09/11/16 07:10 121 09/11/16 07:07 97 Room Air 09/11/16 07:07 39.5 98 18 165/84 97 Room Air 09/11/16 07:07 97 Room Air Constitutional: General Apperance: heathly-appearing Level of Distress: NAD Psychiatric: Mental Status: active & alert Head: normocephalic Eyes: EOM: EOMI ENMT: normal ENT inspection, hearing grossly normal Neck: supple, no masses Lungs: Respiratory effort: no dyspnea, good air movement Auscultation: breath sounds normal, no wheezing Cardiovascular: Heart Auscultation: RRR, no rubs, no gallops, II/ JIM Peripheral Pulses: Bruits: none appreciated Abdomen: Bowel Sounds: normal Inspection & Palpation: soft, no tenderness, guarding & rebound, no masses Musculoskeletal: normal strength (5/5 throughout) Extremities: no edema, pertinent finding (L arm dialysis access) Neurologic: Cranial Nerves: grossly intact Sensation: grossly intact Data Laboratory Results: Last 24 Hours Test 09/11/16 07:48 09/11/16 07:58 09/11/16 08:05 09/11/16 08:40 Bedside Troponin I 0.060 ng/ml [id number] Natriuretic Peptide > 84967 pg/ml White Blood Count 9.39 K/uL Red Blood Count 3.02 M/uL Hemoglobin 9.4 g/dL Hematocrit 29.7 % Mean Corpuscular Volume 98.3 fL Mean Corpuscular Hemoglobin 31.1 pg Mean Corpuscular Hemoglobin Concent 31.6 g/dl Platelet Count 665 K/uL Mean Platelet Volume 10.0 fL Neutrophils (%) (Auto) 69.4 % Lymphocytes (%) (Auto) 22.9 % Monocytes (%) (Auto) 6.0 % Eosinophils (%) (Auto) 0.3 % Basophils (%) (Auto) 0.2 % Neutrophils # (Auto) 6.52 K/uL Lymphocytes # (Auto) 2.15 K/uL Monocytes # (Auto) 0.56 K/uL Eosinophils # (Auto) 0.03 K/uL Basophils # (Auto) 0.02 K/uL RDW Standard Deviation 73.4 fL RDW Coefficient of Variation 20.7 % Immature Granulocyte % (Auto) 1.2 % Immature Granulocyte # (Auto) 0.11 K/uL Nucleated RBC Absolute Count (auto) 0.72 K/uL Nucleated Red Blood Cells % 7.7 % Polychromasia 1+ Anisocytosis PRESENT Spherocytes OCCASIONAL Pappenheimer Bodies OCCASIONAL Target Cells 2+ Carter-[place] Bodies OCCASIONAL Sodium Level 144 mmol/L Potassium Level 4.6 mmol/L Chloride Level 105 mmol/L Carbon Dioxide Level 26 mmol/L Anion Gap 13.0 mmol/L Blood Urea Nitrogen 33 mg/dl Creatinine 5.80 mg/dl Est Creatinine Clear Calc Drug Dose 13.7 ml/min Estimated GFR () 12.1 Estimated GFR (Non- 10.4 BUN/Creatinine Ratio 5.7 Random Glucose 87 mg/dl Calcium Level 7.3 mg/dl Total Bilirubin 0.5 mg/dl Aspartate Amino Transf (AST/SGOT) 31 U/L Alanine Aminotransferase (ALT/SGPT) 16 U/L Alkaline Phosphatase 278 U/L Total Protein 7.1 gm/dl Albumin 1.9 gm/dl Globulin 5.2 gm/dl Albumin/Globulin Ratio 0.4 Chemistry Specimen Hemolysis Bedside Lactic Acid Venous 3.19 mmol/L Prothrombin Time 13.0 SECONDS Prothromb Time International Ratio 1.2 Activated Partial Thromboplast Time 31.5 SECONDS Partial Thromboplastin Ratio 1.2 Troponin I 0.112 ng/ml Test 09/11/16 12:10 09/11/16 14:00 Lactic Acid Level 2.6 mmol/L Creatine Kinase MB 1.2 ng/ml Creatine Kinase MB Ratio Troponin I 0.404 ng/ml EKG: SR, poor R progression, anterior T inversion Telemetry reviewed: SR, some PVCs Assessment & Plan #1. Chest discomfort: Although he feels that his chest discomfort is a little bit different than what he has experienced before, his history is certainly worrisome that this could be an ischemic event. His electrocardiogram is not changed (there are no acute findings) and his enzymes are only minimally elevated, probably consistent with his renal disease. I would recommend observation for now with serial enzymes and electrocardiograms. I would be reluctant to perform emergent invasive evaluation although if circumstances change we may have to do that. He is pain-free and therefore I would not alter his regimen at this time. Thank You
--- NOTE | 2016-09-11 16:28 | Procedure Note ---
Pre-Mod Sedation Assessment General Date of Moderate Sedation: Sep 11, 2016. Vital Signs: Vital Signs Past 12 Hours Date Time Temp Pulse Resp B/P Pulse Ox O2 Delivery O2 Flow Rate FiO2 09/11/16 12:42 117 09/11/16 11:41 37.4 118 20 122/78 97 Nasal Cannula 2.0 09/11/16 11:28 37.9 09/11/16 11:15 115 20 133/78 96 Nasal Cannula 2.0 09/11/16 10:11 36.5 112 22 146/84 92 Room Air 09/11/16 10:04 106 09/11/16 08:46 93 Nasal Cannula 2.0 09/11/16 08:37 39.5 09/11/16 08:10 108 22 149/88 94 Room Air 09/11/16 07:10 121 09/11/16 07:07 97 Room Air 09/11/16 07:07 39.5 98 18 165/84 97 Room Air 09/11/16 07:07 97 Room Air Review Cardiovascular: regular rate, rhythm, + bradycardia Abdomen: normal bowel sounds Lungs: lungs clear Pre-Sedation Airway Assessment Oral Cavity: Chipped Teeth Smoking Status: Former Smoker Procedure Planning Contraindications-for Mod Sed: None Yes Notes The planned sedation has been discussed with the patient and consent obtained. I have identified the patient, determined the appropriateness of sedation and have assessed the patient immediately prior to the procedure. All medicine(s) and interventions are by my order.
--- NOTE | 2016-09-11 16:44 | Cardiology Procedure Brief Nt ---
Preliminary Cardiology Note Procedure Date Sep 11, 2016. 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 Mederos Dial Brusher(s) none Estimated Blood Loss 20 cc Preliminary Findings Good lead position, good measurements Recommendations Monitor overnight Specimens None Anesthesia local with sedation Complication(s) None Disposition PCU
[2016-09-11] MEDS ORDERED: ACETAMINOPHEN/CODEINE 300/30MG TAB PO PRN (16:45)
[2016-09-11] MEDS ORDERED: CEFAZOLIN IV 1,000 MG in DEXTROSE 5% 50ML 50 ML IV SCH (18:00)
[2016-09-11] MEDS: ONDANSETRON INJ 2 MG/ML 2 ML VIAL IV PRN (18:14)
[2016-09-11] MEDS ORDERED: VANCOMYCIN INJ 500 MG in SODIUM CHLORIDE 0.9% 250ML 250 ML IV ONE (21:00)
[2016-09-11] MEDS: PIPERACILL/TAZOBAC IV 3.375 GM in DEXTROSE 5% 100ML 100 ML IV SCH (21:12)
[2016-09-11] MEDS: ATORVASTATIN 20 MG TAB PO SCH (21:13)
[2016-09-11] MEDS: PANTOprazole SOD 40 MG TAB PO SCH (21:13)
[2016-09-12] VITALS (7 sets, daily range): BP systolic 108–140; BP diastolic 61–78; PULSE 77–83; TEMP 36.4–36.7; O2SAT 94–98
[2016-09-12] MEDS: ONDANSETRON INJ 2 MG/ML 2 ML VIAL IV PRN ×3 (00:18→19:44)
[2016-09-12] MEDS ORDERED: HEPARIN 25,000 UNIT/500ML D5W 500 ML IV PRN ×2 (00:45→18:30)
[2016-09-12] MEDS: SODIUM CHLORIDE 0.9% 1000ML 1,000 ML IV SCH ×2 (01:12→19:45)
[2016-09-12 01:54] LABS: PARTIAL THROMBOPLASTIN RATIO 1.4
[2016-09-12] MEDS: HYDROCORTISONE IV 100 MG in SYRINGE 0 ML IV SCH ×2 (06:32→14:31)
[2016-09-12 07:14] LABS: BASO % 0.2 %; BASO ABS # 0.02 K/uL (0-0.2); HEMATOCRIT 27.4 % (42-52); IG% 0.8 %; LYMPH % 20.4 %; LYMPH ABS # 2.65 K/uL (1.2-3.4); MEAN CELL VOLUME 96.1 fL (80-100); MEAN CORPUSCULAR HEMOGLOBIN 30.5 pg (25-34); MEAN CORPUSCULAR HGB CONC 31.8 g/dl (32-36); MEAN PLATELET VOLUME 10.1 fL (7.4-10.4); MONO % 2.4 %; NEUT % 76.2 %; PLATELET COUNT 613 K/uL (130-400); RED BLOOD COUNT 2.85 M/uL (4.7-6.1)
[2016-09-12 07:50] LABS: BUN/CREATININE RATIO 4.8 (10-20); CALCIUM 7.4 mg/dl (8.5-10.1); PHOSPHORUS 5.3 mg/dl (2.5-4.9); POTASSIUM 3.7 mmol/L (3.5-5.1)
[2016-09-12 08:04] LABS: ANISOCYTOSIS PRESENT; COMPLETE YES; HOWELL-JOLLY BODIES 1+; LARGE PLATELETS 1+; TARGET CELLS 2+
[2016-09-12] MEDS: PIPERACILL/TAZOBAC IV 3.375 GM in DEXTROSE 5% 100ML 100 ML IV SCH ×2 (08:36→21:29)
[2016-09-12] MEDS: NEPHROCAPS PO SCH (08:37)
[2016-09-12] MEDS: RASPBERRY SYRUP 5 ML UDP PO SCH ×4 (08:37→21:30)
[2016-09-12] MEDS: CLOPIDOGREL BISULFATE 75 MG TAB PO SCH (08:37)
[2016-09-12] MEDS: CINACALCET 30 MG TAB PO SCH (08:37)
[2016-09-12] MEDS: ASPIRIN 81 MG ECTAB PO SCH (08:37)
[2016-09-12] MEDS: PANTOprazole SOD 40 MG TAB PO SCH ×2 (08:37→21:30)
[2016-09-12] MEDS: PSYLLIUM 58.6% PWD PACK S\\F PO SCH (08:37)
[2016-09-12] MEDS: VANCOMYCIN HCL 125 MG/2.5ML SOLN PO SCH ×4 (08:47→21:29)
--- NOTE | 2016-09-12 11:14 | Cardiology Follow-Up ---
Subjective Subjective Date of Service: Sep 12, 2016. Pt evaluation today including: conversation w/ patient, physical exam, chart review, lab review, review of studies, conversation w/ practice consultant, review of inpatient medication list Additional Details: Patient feeling well this morning. States has more energy than he has had i a while. Denies any chest pain, shortness of breath since admission. No other new concerns Telemetry reviewed -- no significant arrhythmias. Trop trended up to 1.0 overnight and has peaked. Placed on heparin Problem List Medical Problems: (1) Atrial flutter with rapid ventricular response Status: Acute (2) Chest pain Status: Acute (3) Chest pain Status: Acute (4) Chest pain Status: Acute (5) Elevated troponin Status: Acute (6) End stage renal disease Status: Acute (7) ESRD (end stage renal disease) Status: Acute (8) GI bleed Status: Acute (9) Hyperbilirubinemia Status: Acute (10) Lower GI bleeding Status: Acute (11) Peptic ulcer disease Status: Acute (12) Precordial chest pain Status: Acute (13) RUQ abdominal pain Status: Acute (14) Sepsis Status: Acute (15) Sepsis Status: Acute (16) Upper abdominal pain Status: Acute (17) Wrist pain, left Status: Acute Social History Problems: (1) H/O splenectomy Status: Acute Review of Systems Constitutional: + fatigue, No fever Eyes: No worsening of vision Respiratory: No cough Cardiac: No chest pain Abdomen: No nausea, No pain Neurologic: No memory loss Heme: No abnormal bleeding/bruising Skin: No rash Objective Vital Signs Last Vital Signs Documentation Date Time Temp Pulse Resp B/P Pulse Ox O2 Delivery O2 Flow Rate FiO2 09/12/16 08:00 Nasal Cannula 2.0 09/12/16 07:57 36.6 77 18 122/66 96 Physical Exam: General Appearance: WD/WN, no apparent distress ENT: hearing grossly normal Respiratory/Chest: normal breath sounds Cardiovascular: regular rate, rhythm, no edema, + systolic murmur Abdomen: normal bowel sounds, + tenderness (minimal) Extremities: no pedal edema, no calf tenderness Neurologic/Psychiatric: normal mood/affect, + pertinent finding Skin: normal color Lymphatic: no adenopathy Assessment and Plan 1. Elevated troponin 2. Severe coronary artery disease post remote bypass, prior complex stenting to LM into circumflex, distal LAD post HUMPHREYS-LAD anastomosis 3. Sepsis 4. Recent CDiff 5. ESRD on HD 6. Anemia Patient is chest pain free, hemodynamically and electrically stable. No need for emergent invasive therapy. Suspicion that current troponin represents true plaque rupture/ACS is relatively low. Suspect secondary to demand in the setting of severe diffuse CAD, sepsis, renal failure, anemia. In addition, based on patients known anatomy and current presentation patient unlikely to have coronary artery disease which could be safely intervened upon that would change cardiac event risk going forward -- as such do not feel that further risk stratification need at this time. Going forward - Recommend continuing aspirin and plavix. Continue high-dose statin Resume beta-rubin as BP/Hr allow Can stop heparin infusion. Will follow while in hospital. When medical issues resolved ok for discharge from a cardiac standpoint with follow-up with Dr. Molina Medications: Current Inpatient Medications Medications (Trade) Dose Ordered Sig/Amanda Route Start Time Stop Time Status Last Admin Dose Admin Acetaminophen (Tylenol Tab) 650 mg Q4H PRN PO 09/11/16 09:30 10/11/16 09:29 Ondansetron HCl (Zofran Inj) 4 mg Q6H PRN IV 09/11/16 09:30 10/11/16 09:29 09/12/16 00:18 4 MG Aspirin (Ecotrin Tab) 81 mg DAILY PO 09/12/16 09:00 10/12/16 08:59 09/12/16 08:37 81 MG Atorvastatin Calcium (Lipitor Tab) 20 mg HS PO 09/11/16 21:00 10/11/16 20:59 09/11/16 21:13 20 MG Clopidogrel Bisulfate (plAVix TAB) 75 mg DAILY PO 09/12/16 09:00 10/12/16 08:59 09/12/16 08:37 75 MG Pantoprazole Sodium (Protonix Tab) 40 mg BID PO 09/11/16 21:00 10/11/16 20:59 09/12/16 08:37 40 MG Vitamin B Complex/ Vit C/Folic Acid (Nephrocaps) 1 cap DAILY PO 09/12/16 09:00 10/12/16 08:59 09/12/16 08:37 1 CAP Cinacalcet (Sensipar) 30 mg QAM PO 09/12/16 09:00 10/12/16 08:59 09/12/16 08:37 30 MG Psyllium Hydrophilic Mucilloid (Metamucil Powder) 1 pkt DAILY PO 09/12/16 09:00 10/12/16 08:59 09/12/16 08:37 1 PKT Oxycodone HCl 5 mg 5 mg Q4 PRN PO 09/11/16 10:15 09/25/16 10:14 Piperacillin Sod/ Tazobactam Sod/ Dextrose (Zosyn Iv/D5 100ml) 115 ml @ 200 mls/hr Q12@0800,2000 IV 09/11/16 20:00 09/20/16 20:35 09/12/16 08:36 200 MLS/HR Hydromorphone HCl (Dilaudid Inj) 1 mg Q4 PRN IM 09/11/16 10:45 09/25/16 10:44 09/11/16 21:29 1 MG Al Hydrox/Mg Hydrox/ Simethicone 15 ml 15 ml ONE PRN PO 09/11/16 11:00 10/11/16 10:59 09/11/16 11:10 15 ML Hydrocortisone Sodium Succinate/ Syringe (Solu-Cortef IV/ Syringe) 2 ml @ 4 mls/min Q8 IV 09/11/16 14:00 10/11/16 13:59 09/12/16 06:32 4 MLS/MIN Vancomycin HCl (Consult) 1 ea UD PRN N/A 09/11/16 11:00 10/11/16 10:59 Piperacillin Sod/ Tazobactam Sod (Consult) 1 ea UD PRN N/A 09/11/16 11:00 10/11/16 10:59 Vancomycin HCl (Vancomycin Oral Soln) 125 mg QID PO 09/11/16 13:00 09/25/16 12:59 09/12/16 08:47 125 MG Raspberry 5 ml 5 ml QID PO 09/11/16 13:00 09/25/16 12:59 09/12/16 08:37 5 ML Sodium Chloride 1,000 ml @ 80 mls/hr [id number] IV 09/11/16 18:30 09/12/16 01:12 150 MLS/HR Heparin Sodium/ Dextrose (Heparin 25,000 Unit/500ml D5W) 500 ml @ 21 mls/hr [id number] PRN IV 09/12/16 00:45 10/12/16 00:44 09/12/16 01:23 21 MLS/HR Lab Results: 09/12/16 06:25 Red Blood Count 2.85, Mean Corpuscular Volume 96.1, Mean Corpuscular Hemoglobin 30.5, Mean Corpuscular Hemoglobin Concent 31.8, Mean Platelet Volume 10.1, Neutrophils (%) (Auto) 76.2, Lymphocytes (%) (Auto) 20.4, Monocytes (%) (Auto) 2.4, Eosinophils (%) (Auto) 0.0, Basophils (%) (Auto) 0.2, Neutrophils # (Auto) 9.92, Lymphocytes # (Auto) 2.65, Monocytes # (Auto) 0.31, Eosinophils # (Auto) 0.00, Basophils # (Auto) 0.02 09/12/16 06:25 Test 09/11/16 22:00 09/11/16 22:15 09/12/16 06:25 09/12/16 08:14 Creatine Kinase MB Ratio (0-3.0) Creatine Kinase MB 3.0 ng/ml (0.5-3.6) White Blood Count 13.00 K/uL (4.8-10.8) Red Blood Count 2.85 M/uL (4.7-6.1) Hemoglobin 8.7 g/dL (14.0-18.0) Hematocrit 27.4 % (42-52) Mean Corpuscular Volume 96.1 fL (80-100) Mean Corpuscular Hemoglobin 30.5 pg (25-34) Mean Corpuscular Hemoglobin Concent 31.8 g/dl (32-36) Platelet Count 613 K/uL (130-400) Mean Platelet Volume 10.1 fL (7.4-10.4) Neutrophils (%) (Auto) 76.2 % Lymphocytes (%) (Auto) 20.4 % Monocytes (%) (Auto) 2.4 % Eosinophils (%) (Auto) 0.0 % Basophils (%) (Auto) 0.2 % Neutrophils # (Auto) 9.92 K/uL (1.4-6.5) Lymphocytes # (Auto) 2.65 K/uL (1.2-3.4) Monocytes # (Auto) 0.31 K/uL (0.11-0.59) Eosinophils # (Auto) 0.00 K/uL (0-0.5) Basophils # (Auto) 0.02 K/uL (0-0.2) RDW Standard Deviation 74.6 fL (36.4-46.3) RDW Coefficient of Variation 21.5 % (11.5-14.5) Immature Granulocyte % (Auto) 0.8 % Immature Granulocyte # (Auto) 0.10 K/uL (0.00-0.02) Nucleated RBC Absolute Count (auto) 0.34 K/uL (0-0) Nucleated Red Blood Cells % 2.6 % Large Platelets 1+ Basophilic Stippling 1+ Anisocytosis PRESENT Target Cells 2+ Carter-Sacred Heart Bodies 1+ Activated Partial Thromboplast Time 53.0 SECONDS (21.0-31.0) Partial Thromboplastin Ratio 2.0 Anion Gap 9.0 mmol/L (3-11) Est Creatinine Clear Calc Drug Dose 24.3 ml/min Estimated GFR () 26.8 Estimated GFR (Non- 23.1 BUN/Creatinine Ratio 4.8 (10-20) Calcium Level 7.4 mg/dl (8.5-10.1) Phosphorus Level 5.3 mg/dl (2.5-4.9) Magnesium Level 2.0 mg/dl (1.8-2.4) Troponin I 0.797 ng/ml (0-0.045) Random Vancomycin Level 20.2 mcg/ml Lactic Acid Level 2.0 mmol/L (0.4-2.0) Date/Time Source Procedure Growth Status 09/11/16 12:10 Nasal MRSA DNA Surveillance Screen - Final Specimen Negative for MRSA by DNA Probe Complete
--- NOTE | 2016-09-12 12:04 | Nephrology Progress Note ---
Nephrology Progress Note Date of Service Sep 12, 2016. Chief Complaint Follow-up for end-stage renal disease on hemodialysis. Brian Cortes Was seen and examined in his room this morning. Remained afebrile. Currently denies any nausea, shortness of Breath chest pain. Diarrhea seems be improving. C diff toxin assay is negative, blood culture pending. Dialysis yesterday uneventful. Currently blood pressure, volume status and electrolyte acceptable. Overall feeling good and wants to go home. Review of Systems A complete review of systems was performed. Pertinent positives are noted above. All other systems are negative. Vital Signs Last 8 Hrs Date Time Temp Pulse Resp B/P Pulse Ox O2 Delivery O2 Flow Rate FiO2 09/12/16 07:57 36.6 77 18 122/66 96 Room Air 09/12/16 04:00 Nasal Cannula 09/12/16 03:28 36.4 78 23 108/61 94 Room Air I & O 24-Hour Column 09/12/16 08:00 Intake Total 2224 ml Output Total 2000 ml Balance 224 ml Last Recorded Weight Weight (Kilograms): 58.300 Physical Exam GENERAL: middle-aged male , AAA x 3, pleasant, ill-appearing, not in any distress. NECK: Supple, no JVD. RESPIRATORY: Normal breathing efforts, no accessory muscle use, clear to auscultation bilaterally, no wheezes or rales. CARDIOVASCULAR: S1, S2 normal, rate rhythm regular. EXTREMITY: No lower extremity edema NEURO: speech fluent. PSYCHIATRY: Normal mood and judgment Family History FH: heart disease Social History Smoking Status: Never smoker Drug Use: none Marital Status: Housing Status: lives with family Occupation: employed, disabled Laboratory Results Past 24 Hours 09/12/16 06:25 Red Blood Count 2.85, Mean Corpuscular Volume 96.1, Mean Corpuscular Hemoglobin 30.5, Mean Corpuscular Hemoglobin Concent 31.8, Mean Platelet Volume 10.1, Neutrophils (%) (Auto) 76.2, Lymphocytes (%) (Auto) 20.4, Monocytes (%) (Auto) 2.4, Eosinophils (%) (Auto) 0.0, Basophils (%) (Auto) 0.2, Neutrophils # (Auto) 9.92, Lymphocytes # (Auto) 2.65, Monocytes # (Auto) 0.31, Eosinophils # (Auto) 0.00, Basophils # (Auto) 0.02 09/12/16 06:25 Test 09/11/16 12:10 09/11/16 14:00 09/11/16 22:00 09/11/16 22:15 Lactic Acid Level 2.6 mmol/L (0.4-2.0) Creatine Kinase MB 1.2 ng/ml (0.5-3.6) 3.0 ng/ml (0.5-3.6) Creatine Kinase MB Ratio (0-3.0) (0-3.0) Troponin I 0.404 ng/ml (0-0.045) 1.050 ng/ml (0-0.045) Test 09/12/16 01:08 09/12/16 06:25 09/12/16 08:14 Activated Partial Thromboplast Time 36.4 SECONDS (21.0-31.0) 53.0 SECONDS (21.0-31.0) Partial Thromboplastin Ratio 1.4 2.0 White Blood Count 13.00 K/uL (4.8-10.8) Red Blood Count 2.85 M/uL (4.7-6.1) Hemoglobin 8.7 g/dL (14.0-18.0) Hematocrit 27.4 % (42-52) Mean Corpuscular Volume 96.1 fL (80-100) Mean Corpuscular Hemoglobin 30.5 pg (25-34) Mean Corpuscular Hemoglobin Concent 31.8 g/dl (32-36) Platelet Count 613 K/uL (130-400) Mean Platelet Volume 10.1 fL (7.4-10.4) Neutrophils (%) (Auto) 76.2 % Lymphocytes (%) (Auto) 20.4 % Monocytes (%) (Auto) 2.4 % Eosinophils (%) (Auto) 0.0 % Basophils (%) (Auto) 0.2 % Neutrophils # (Auto) 9.92 K/uL (1.4-6.5) Lymphocytes # (Auto) 2.65 K/uL (1.2-3.4) Monocytes # (Auto) 0.31 K/uL (0.11-0.59) Eosinophils # (Auto) 0.00 K/uL (0-0.5) Basophils # (Auto) 0.02 K/uL (0-0.2) RDW Standard Deviation 74.6 fL (36.4-46.3) RDW Coefficient of Variation 21.5 % (11.5-14.5) Immature Granulocyte % (Auto) 0.8 % Immature Granulocyte # (Auto) 0.10 K/uL (0.00-0.02) Nucleated RBC Absolute Count (auto) 0.34 K/uL (0-0) Nucleated Red Blood Cells % 2.6 % Large Platelets 1+ Basophilic Stippling 1+ Anisocytosis PRESENT Target Cells 2+ Carter-Mccoy Bodies 1+ Anion Gap 9.0 mmol/L (3-11) Est Creatinine Clear Calc Drug Dose 24.3 ml/min Estimated GFR () 26.8 Estimated GFR (Non- 23.1 BUN/Creatinine Ratio 4.8 (10-20) Calcium Level 7.4 mg/dl (8.5-10.1) Phosphorus Level 5.3 mg/dl (2.5-4.9) Magnesium Level 2.0 mg/dl (1.8-2.4) Troponin I 0.797 ng/ml (0-0.045) Random Vancomycin Level 20.2 mcg/ml Lactic Acid Level 2.0 mmol/L (0.4-2.0) Date/Time Source Procedure Growth Status 09/11/16 12:10 Nasal MRSA DNA Surveillance Screen - Final Specimen Negative for MRSA by DNA Probe Complete 09/11/16 10:16 Stool C.difficile Toxin B Gene (PCR) - Final No C. difficile toxin B gene detected Complete Allergies Coded Allergies: POLLEN (Verified Allergy, Unknown, "HAYFEVER", 09/11/16) Diazoxide (Verified Adverse Reaction, Intermediate, ELEVATE BP;N&V, ) NSAIDs (Verified Adverse Reaction, Unknown, KIDNEY TRANSPLANT, 09/11/16) Medications Current Inpatient Medications Medications (Trade) Dose Ordered Sig/Amanda Route Start Time Stop Time Status Last Admin Dose Admin Acetaminophen (Tylenol Tab) 650 mg Q4H PRN PO 09/11/16 09:30 10/11/16 09:29 Ondansetron HCl (Zofran Inj) 4 mg Q6H PRN IV 09/11/16 09:30 10/11/16 09:29 09/12/16 00:18 4 MG Aspirin (Ecotrin Tab) 81 mg DAILY PO 09/12/16 09:00 10/12/16 08:59 09/12/16 08:37 81 MG Atorvastatin Calcium (Lipitor Tab) 20 mg HS PO 09/11/16 21:00 10/11/16 20:59 09/11/16 21:13 20 MG Clopidogrel Bisulfate (plAVix TAB) 75 mg DAILY PO 09/12/16 09:00 10/12/16 08:59 09/12/16 08:37 75 MG Pantoprazole Sodium (Protonix Tab) 40 mg BID PO 09/11/16 21:00 10/11/16 20:59 09/12/16 08:37 40 MG Vitamin B Complex/ Vit C/Folic Acid (Nephrocaps) 1 cap DAILY PO 09/12/16 09:00 10/12/16 08:59 09/12/16 08:37 1 CAP Cinacalcet (Sensipar) 30 mg QAM PO 09/12/16 09:00 10/12/16 08:59 09/12/16 08:37 30 MG Psyllium Hydrophilic Mucilloid (Metamucil Powder) 1 pkt DAILY PO 09/12/16 09:00 10/12/16 08:59 09/12/16 08:37 1 PKT Oxycodone HCl 5 mg 5 mg Q4 PRN PO 09/11/16 10:15 09/25/16 10:14 Piperacillin Sod/ Tazobactam Sod/ Dextrose (Zosyn Iv/D5 100ml) 115 ml @ 200 mls/hr Q12@0800,2000 IV 09/11/16 20:00 09/20/16 20:35 09/12/16 08:36 200 MLS/HR Hydromorphone HCl (Dilaudid Inj) 1 mg Q4 PRN IM 09/11/16 10:45 09/25/16 10:44 09/11/16 21:29 1 MG Al Hydrox/Mg Hydrox/ Simethicone 15 ml 15 ml ONE PRN PO 09/11/16 11:00 10/11/16 10:59 09/11/16 11:10 15 ML Hydrocortisone Sodium Succinate/ Syringe (Solu-Cortef IV/ Syringe) 2 ml @ 4 mls/min Q8 IV 09/11/16 14:00 10/11/16 13:59 09/12/16 06:32 4 MLS/MIN Vancomycin HCl (Consult) 1 ea UD PRN N/A 09/11/16 11:00 10/11/16 10:59 Piperacillin Sod/ Tazobactam Sod (Consult) 1 ea UD PRN N/A 09/11/16 11:00 10/11/16 10:59 Vancomycin HCl (Vancomycin Oral Soln) 125 mg QID PO 09/11/16 13:00 09/25/16 12:59 09/12/16 08:47 125 MG Raspberry 5 ml 5 ml QID PO 09/11/16 13:00 09/25/16 12:59 09/12/16 08:37 5 ML Sodium Chloride 1,000 ml @ 80 mls/hr [id number] IV 09/11/16 18:30 09/12/16 01:12 150 MLS/HR Heparin Sodium/ Dextrose (Heparin 25,000 Unit/500ml D5W) 500 ml @ 21 mls/hr [id number] PRN IV 09/12/16 00:45 10/12/16 00:44 09/12/16 01:23 21 MLS/HR Impression (1) ESRD (end stage renal disease) on dialysis (2) Anemia (3) Secondary hyperparathyroidism of renal origin (4) Sepsis (5) HTN (hypertension) (6) Immunosuppression Sebastian is a 51-year-old gentlemen with complicated past medical history, including 3 renal transplant currently on hemodialysis Wednesday, Wednesday. He he admitted to the hospital with an episode of chest pain, vomiting and diarrhea, symptom currently resolved. He is on broad-spectrum antibiotic, C diff toxin assay negative blood culture still pending cardiac enzymes are unremarkable. Currently he is being treated for sepsis pending final culture reports. Overall feeling better. Has end-stage renal disease, on hemodialysis, had dialysis yesterday as regular schedule. Has anemia and secondary hyperparathyroidism, on Epogen, phosphate binder and Sensipar Has history of coronary artery disease previously had CABG and PTCA with stent currently asymptomatic. Recommendations --continue to monitor volume status, blood pressure and electrolyte over the weekend, had dialysis yesterday currently otherwise clinically stable no acute indication for dialysis. Will keep on schedule for dialysis for next Wednesday unless any acute changes -- avoid IV fluid, changed to regular diet as per patient's request. -- continue on renal vitamins, phosphate binder and Sensipar --As diarrhea seems to be improving currently afebrile otherwise lb overall feeling better in next 24 hour if patient doing well okay to be discharged tomorrow from nephrology standpoint. will follow
--- NOTE | 2016-09-12 13:05 | Pharmacy Progress Note ---
Pharmacy Antibiotic Prog Note Date of Service: Sep 12, 2016. Subjective: The patient is currently receiving Vancomycin empirically based on random levels due to ESRD on HD. The patient is currently on day # 2 of Vancomycin IV therapy. Objective: Height (Feet): 5 Height (Inches): 6.00 Weight (Kilograms): 58.300 Levels: Item Value Date Time Random Vancomycin Level 20.2 mcg/ml 09/12/16 0625 Lab Results (24hrs): Laboratory Tests Test 09/12/16 06:25 BUN/Creatinine Ratio 4.8 Blood Urea Nitrogen 14 mg/dl Creatinine 3.00 mg/dl White Blood Count 13.00 K/uL Red Blood Count 2.85 M/uL Hemoglobin 8.7 g/dL Hematocrit 27.4 % Mean Corpuscular Volume 96.1 fL Mean Corpuscular Hemoglobin 30.5 pg Mean Corpuscular Hemoglobin Concent 31.8 g/dl Platelet Count 613 K/uL Mean Platelet Volume 10.1 fL Neutrophils (%) (Auto) 76.2 % Lymphocytes (%) (Auto) 20.4 % Monocytes (%) (Auto) 2.4 % Eosinophils (%) (Auto) 0.0 % Basophils (%) (Auto) 0.2 % Neutrophils # (Auto) 9.92 K/uL Lymphocytes # (Auto) 2.65 K/uL Monocytes # (Auto) 0.31 K/uL Eosinophils # (Auto) 0.00 K/uL Basophils # (Auto) 0.02 K/uL Micro Results: Item Value Date Time Blood Culture Received 09/11/16 0740 Blood Pending Blood Culture Received 09/11/16 0758 Blood Pending C.difficile Toxin B Gene (PCR) - Final Complete 09/11/16 1016 Stool No C. difficile toxin B gene detected WBC Smear - Final Resulted 09/11/16 1016 Stool MRSA DNA Surveillance Screen - Final Complete 09/11/16 1210 Nasal Specimen Negative for MRSA by DNA Probe Assessment & Plan: Assessment * 51 y/o M on empiric IV Vancomycin and Zosyn for sepsis secondary to GI source. ID is also following the patient. * Patient is receiving Vancomycin empirically based on random levels due to ESRD on HD (MWF) * Last Vancomycin dose of 500mg IV x 1 was given at 2110 (after dialysis) * Last HD session was yesterday on 09/11/16 (time off machine was 2029; session lasted 4 hours) * Post-HD level on 09/12/16 @ 0625 was 20.2 mcg/mL * Patient does not need any additional Vancomycin at this time as level is supratherapeutic. Level will likely remain mostly unchanged until next HD session. Plan * No additional doses of Vancomycin needed at this time * Check random level on 09/14 with AM labs (prior to next anticipated HD session ) to determine next dose needed Pharmacy will continue to follow and will adjust dose/frequency as necessary. Thank you
--- NOTE | 2016-09-12 15:02 | Progress Note ---
Subjective Date of Service: Sep 12, 2016. Subjective Pt evaluation today including: conversation w/ patient, conversation w/ family , physical exam, chart review, lab review, review of studies, conversation w/ business process consultant, review of inpatient medication list no more fever, a little better, no appetites, Problem List Medical Problems: (1) Atrial flutter with rapid ventricular response Status: Acute (2) Chest pain Status: Acute (3) Chest pain Status: Acute (4) Chest pain Status: Acute (5) Elevated troponin Status: Acute (6) End stage renal disease Status: Acute (7) ESRD (end stage renal disease) Status: Acute (8) GI bleed Status: Acute (9) Hyperbilirubinemia Status: Acute (10) Lower GI bleeding Status: Acute (11) Peptic ulcer disease Status: Acute (12) Precordial chest pain Status: Acute (13) RUQ abdominal pain Status: Acute (14) Sepsis Status: Acute (15) Sepsis Status: Acute (16) Upper abdominal pain Status: Acute (17) Wrist pain, left Status: Acute Social History Problems: (1) H/O splenectomy Status: Acute Review of Systems Constitutional: + fatigue, + weakness, No chills, No fever, No problem reported , No sweats, No weight loss Eyes: No diplopia, No discharge, No eye pain, No redness, No worsening of vision ENT: No dental problems, No hearing loss, No nasal symptoms, No sore throat, No tinnitus, No trouble swallowing, No unusual epistaxis Respiratory: No cough, No dyspnea at rest, No dyspnea on exertion, No hemoptysis, No shortness of breath, No sputum, No wheezing Cardiac: No PND, No chest pain, No claudication, No edema, No orthopnea, No palpitations Abdomen: + nausea, No constipation, No diarrhea, No pain, No vomiting Musculoskeletal: No calf pain, No joint pain, No muscle pain, No swelling Male : No dysuria, No hematuria, No incontinence, No nocturia more than once/ night, No slowing stream, No urinary frequency Neurologic: No balance problems, No memory loss, No numbness/tingling, No paralysis, No vertigo, No weakness Psychiatric: No anhedonism, No anxiety, No depression symptoms, No insomnia, No substance abuse Heme: No abnormal bleeding/bruising, No clotting problems, No night sweats, No swollen lymph nodes Endo: No excessive thirst, No excessive urination, No fatigue Skin: No bleeding, No color change, No itch, No new/changing skin lesions, No rash Objective Vital Signs Date Time Temp Pulse Resp B/P Pulse Ox O2 Delivery O2 Flow Rate FiO2 09/12/16 12:29 36.7 83 20 135/71 96 Room Air 09/12/16 12:00 Nasal Cannula 2.0 09/12/16 08:00 Nasal Cannula 2.0 09/12/16 07:57 36.6 77 18 122/66 96 Room Air 09/12/16 04:00 Nasal Cannula 09/12/16 03:28 36.4 78 23 108/61 94 Room Air 09/12/16 00:03 36.6 79 21 115/66 98 Nasal Cannula 2.0 09/11/16 23:59 Nasal Cannula 09/11/16 21:00 36.8 81 117/66 09/11/16 20:15 84 116/62 09/11/16 20:00 Nasal Cannula 2.0 09/11/16 20:00 80 116/60 09/11/16 19:45 85 117/71 09/11/16 19:30 85 110/64 09/11/16 19:15 82 108/57 09/11/16 19:00 82 108/62 09/11/16 18:45 82 114/73 09/11/16 18:30 85 111/63 09/11/16 18:15 85 120/67 09/11/16 18:00 86 123/64 09/11/16 17:45 89 124/70 09/11/16 17:30 88 112/75 09/11/16 17:15 89 117/71 09/11/16 17:00 101 120/71 09/11/16 16:45 100 122/74 09/11/16 16:23 36.6 99 120/74 09/11/16 16:00 Nasal Cannula 2.0 09/11/16 15:54 86 Room Air 09/11/16 15:43 36.5 102 18 133/83 92 Room Air Physical Exam General Appearance: WD/WN, no apparent distress, + thin, + pertinent finding ( frail, ill looking) Eyes: normal inspection, PERRL, EOMI, + abnormal sclerae exam (?) ENT: normal ENT inspection, hearing grossly normal, pharynx normal Neck: supple, no adenopathy, thyroid normal, no JVD, no carotid bruits, trachea midline Respiratory/Chest: chest non-tender, normal breath sounds, no respiratory distress, no accessory muscle use, + decreased breath sounds Cardiovascular: regular rate, rhythm, no edema, no gallop, no JVD, no murmur Abdomen: normal bowel sounds, soft, no organomegaly, no pulsatile mass Extremities: normal range of motion, non-tender, normal inspection, no pedal edema, no calf tenderness, normal capillary refill, pelvis stable Neurologic/Psychiatric: president practicing urologist II-XII nml as tested, no motor/sensory deficits, alert, normal mood/affect, oriented x 3 Skin: normal color, warm/dry, no rash Lymphatic: no adenopathy Laboratory Results Last 24 Hours Test 09/11/16 22:00 09/11/16 22:15 09/12/16 01:08 09/12/16 06:25 Creatine Kinase MB Ratio Creatine Kinase MB 3.0 ng/ml Troponin I 1.050 ng/ml 0.797 ng/ml Activated Partial Thromboplast Time 36.4 SECONDS 53.0 SECONDS Partial Thromboplastin Ratio 1.4 2.0 White Blood Count 13.00 K/uL Red Blood Count 2.85 M/uL Hemoglobin 8.7 g/dL Hematocrit 27.4 % Mean Corpuscular Volume 96.1 fL Mean Corpuscular Hemoglobin 30.5 pg Mean Corpuscular Hemoglobin Concent 31.8 g/dl Platelet Count 613 K/uL Mean Platelet Volume 10.1 fL Neutrophils (%) (Auto) 76.2 % Lymphocytes (%) (Auto) 20.4 % Monocytes (%) (Auto) 2.4 % Eosinophils (%) (Auto) 0.0 % Basophils (%) (Auto) 0.2 % Neutrophils # (Auto) 9.92 K/uL Lymphocytes # (Auto) 2.65 K/uL Monocytes # (Auto) 0.31 K/uL Eosinophils # (Auto) 0.00 K/uL Basophils # (Auto) 0.02 K/uL RDW Standard Deviation 74.6 fL RDW Coefficient of Variation 21.5 % Immature Granulocyte % (Auto) 0.8 % Immature Granulocyte # (Auto) 0.10 K/uL Nucleated RBC Absolute Count (auto) 0.34 K/uL Nucleated Red Blood Cells % 2.6 % Large Platelets 1+ Basophilic Stippling 1+ Anisocytosis PRESENT Target Cells 2+ Carter-Brashear Bodies 1+ Sodium Level 143 mmol/L Potassium Level 3.7 mmol/L Chloride Level 106 mmol/L Carbon Dioxide Level 28 mmol/L Anion Gap 9.0 mmol/L Blood Urea Nitrogen 14 mg/dl Creatinine 3.00 mg/dl Est Creatinine Clear Calc Drug Dose 24.3 ml/min Estimated GFR () 26.8 Estimated GFR (Non- 23.1 BUN/Creatinine Ratio 4.8 Random Glucose 95 mg/dl Calcium Level 7.4 mg/dl Phosphorus Level 5.3 mg/dl Magnesium Level 2.0 mg/dl Random Vancomycin Level 20.2 mcg/ml Test 09/12/16 08:14 Lactic Acid Level 2.0 mmol/L Assessment and Plan 51 yo M with Sepsis likely secondary to gastrointestinal source, admitted on 2016 Sepsis likely secondary to gastrointestinal source, recurrent cdiff? possible sepsis with leukocytoses and an elevated lactase, continue IV infusion , IV antibiotics, cont hemodynamically stable, possibly c. diff diarrhea as just finished abx course x 28 days on 09/09/2016 Has been c. diff positive in the past prior to last admit as well contact precautions diarrhea x2 today , is better - Checking abdominal wound for group A strep as was seen during last admission- pt was finishing course of keflex - Got doses of vanc/zosyn in the ED, - ID consulted for antibiotic regimen is getting stress dose of hydrocortisone, will stop and resume home dose chronic prednisone 5 mg daily b/c pt is better and stable ESRD on HD s/p 3 kidney transplants on chronic prednisone 5 mg daily, resumed - Consulted nephrology - Chest pain upon admission with mild elevated tn, likely demanding ischemia, DC heparin drip, cardio on the case CAD x 3 stents in 2008 Previous [place] EKG concerning for new ST wave inversion in leads II and III compared with previous on 08/18/16. Abdominal Wound s/p cholecystectomy January 2016, stable - Pt is s/p cholecystectomy where pt reports gallbladder adhered to the liver. -. more yellow today, check LFT puneet - Wound culture from last admission grew out group A strep, no reculture at this time as incision is healing well, no drainage, nontender surrounding area. Low suspicion that this is the source of infection. Hx GI bleed - Continue plavix at this time, will heme check stool PMHx of recent sepsis secondary to c. difficile colitis, ESRD on HD s/p 3 kidney transplants, hx MO, CAD s/p CABG with 3 stents placed in 2008 on plavix, HTN, liver cirrhosis, CHF with LVEF= 40%, hx gi bleed, and post cholecystectomy abdominal wound. DVT ppx: on plavix, SCDs CODE STATUS: FULL CODE discuss with patient and about a care plan, answer all questions Continued [facility] stay due to: multiple IV medications needed Discharge planning: home
[2016-09-12] MEDS: HYDROmorphone INJ 1 MG/ML SYR IM PRN (16:33)
[2016-09-12] MEDS: ATORVASTATIN 20 MG TAB PO SCH (21:31)
[2016-09-13] MEDS: ONDANSETRON INJ 2 MG/ML 2 ML VIAL IV PRN ×2 (02:22→22:04)
[2016-09-13 03:55] VITALS: BP 148/77; PULSE 79; TEMP 36.4; O2SAT 96
[2016-09-13 06:17] LABS: BASO % 0.2 %; BASO ABS # 0.03 K/uL (0-0.2); HEMATOCRIT 27.6 % (42-52); IG% 1.3 %; LYMPH % 22.4 %; LYMPH ABS # 2.92 K/uL (1.2-3.4); MEAN CELL VOLUME 95.8 fL (80-100); MEAN CORPUSCULAR HEMOGLOBIN 30.6 pg (25-34); MEAN CORPUSCULAR HGB CONC 31.9 g/dl (32-36); MEAN PLATELET VOLUME 10.2 fL (7.4-10.4); MONO % 10.8 %; NEUT % 65.3 %; PLATELET COUNT 625 K/uL (130-400); RED BLOOD COUNT 2.88 M/uL (4.7-6.1); WHITE BLOOD COUNT 13.02 K/uL (4.8-10.8)
[2016-09-13 06:48] LABS: COMPLETE YES; POLYCHROMASIA 1+; TARGET CELLS 2+
[2016-09-13 07:07] LABS: BUN/CREATININE RATIO 5.2 (10-20); CALCIUM 7.1 mg/dl (8.5-10.1); CREATININE 4.3 mg/dl (0.60-1.40); PHOSPHORUS 6.1 mg/dl (2.5-4.9); POTASSIUM 3.1 mmol/L (3.5-5.1)
[2016-09-13 08:20] VITALS: BP 150/74; PULSE 76; TEMP 36.6; O2SAT 95
[2016-09-13] MEDS: PSYLLIUM 58.6% PWD PACK S\\F PO SCH (09:00)
[2016-09-13] MEDS: VANCOMYCIN HCL 125 MG/2.5ML SOLN PO SCH ×3 (09:21→18:00)
[2016-09-13] MEDS: PIPERACILL/TAZOBAC IV 3.375 GM in DEXTROSE 5% 100ML 100 ML IV SCH (09:21)
[2016-09-13] MEDS: CINACALCET 30 MG TAB PO SCH (09:22)
[2016-09-13] MEDS: PANTOprazole SOD 40 MG TAB PO SCH (09:22)
[2016-09-13] MEDS: NEPHROCAPS PO SCH (09:22)
[2016-09-13] MEDS: ASPIRIN 81 MG ECTAB PO SCH (09:22)
[2016-09-13] MEDS: CLOPIDOGREL BISULFATE 75 MG TAB PO SCH (09:22)
[2016-09-13] MEDS: RASPBERRY SYRUP 5 ML UDP PO SCH ×3 (09:22→18:00)
[2016-09-13] MEDS ORDERED: POTASSIUM CHLORIDE 10 MEQ TABCR PO ONE ×2 (10:30→12:30)
--- NOTE | 2016-09-13 12:14 | Nephrology Progress Note ---
Nephrology Progress Note Date of Service Sep 13, 2016. Chief Complaint Follow-up for end-stage renal disease on hemodialysis. Brian Cortes Was seen and examined in his room this morning. Remained afebrile. Currently denies any nausea, shortness of Breath chest pain. Diarrhea continues to improve. C diff toxin assay is negative. Currently blood pressure, volume status and electrolyte acceptable. Overall feeling good and wants to go home. Review of Systems A complete review of systems was performed. Pertinent positives are noted above. All other systems are negative. Vital Signs Last 8 Hrs Date Time Temp Pulse Resp B/P Pulse Ox O2 Delivery O2 Flow Rate FiO2 09/13/16 08:20 36.6 76 20 150/74 95 Room Air 09/13/16 04:00 Room Air 09/13/16 03:55 36.4 79 18 148/77 96 Room Air I & O 24-Hour Column 09/13/16 07:59 Intake Total 3185 ml Balance 3185 ml Last Recorded Weight Weight (Kilograms): 59.100 Physical Exam GENERAL: Middle aged male, AAA x 3, pleasant, ill-appearing, not in any distress. NECK: Supple, no JVD. RESPIRATORY: Normal breathing efforts, no accessory muscle use, clear to auscultation bilaterally, no wheezes or rales. CARDIOVASCULAR: S1, S2 normal, rate rhythm regular. EXTREMITY: No lower extremity edema NEURO: speech fluent. PSYCHIATRY: Normal mood and judgment Family History FH: heart disease Social History Smoking Status: Never smoker Drug Use: none Marital Status: Housing Status: lives with family Occupation: employed, disabled Laboratory Results Past 24 Hours 09/13/16 05:30 Red Blood Count 2.88, Mean Corpuscular Volume 95.8, Mean Corpuscular Hemoglobin 30.6, Mean Corpuscular Hemoglobin Concent 31.9, Mean Platelet Volume 10.2, Neutrophils (%) (Auto) 65.3, Lymphocytes (%) (Auto) 22.4, Monocytes (%) (Auto) 10.8, Eosinophils (%) (Auto) 0.0, Basophils (%) (Auto) 0.2, Neutrophils # (Auto ) 8.49, Lymphocytes # (Auto) 2.92, Monocytes # (Auto) 1.41, Eosinophils # (Auto ) 0.00, Basophils # (Auto) 0.03 09/13/16 05:30 Test 09/13/16 05:30 White Blood Count 13.02 K/uL (4.8-10.8) Red Blood Count 2.88 M/uL (4.7-6.1) Hemoglobin 8.8 g/dL (14.0-18.0) Hematocrit 27.6 % (42-52) Mean Corpuscular Volume 95.8 fL (80-100) Mean Corpuscular Hemoglobin 30.6 pg (25-34) Mean Corpuscular Hemoglobin Concent 31.9 g/dl (32-36) Platelet Count 625 K/uL (130-400) Mean Platelet Volume 10.2 fL (7.4-10.4) Neutrophils (%) (Auto) 65.3 % Lymphocytes (%) (Auto) 22.4 % Monocytes (%) (Auto) 10.8 % Eosinophils (%) (Auto) 0.0 % Basophils (%) (Auto) 0.2 % Neutrophils # (Auto) 8.49 K/uL (1.4-6.5) Lymphocytes # (Auto) 2.92 K/uL (1.2-3.4) Monocytes # (Auto) 1.41 K/uL (0.11-0.59) Eosinophils # (Auto) 0.00 K/uL (0-0.5) Basophils # (Auto) 0.03 K/uL (0-0.2) RDW Standard Deviation 73.8 fL (36.4-46.3) RDW Coefficient of Variation 21.4 % (11.5-14.5) Immature Granulocyte % (Auto) 1.3 % Immature Granulocyte # (Auto) 0.17 K/uL (0.00-0.02) Nucleated RBC Absolute Count (auto) 0.35 K/uL (0-0) Nucleated Red Blood Cells % 2.7 % Polychromasia 1+ Basophilic Stippling 1+ Pappenheimer Bodies 1+ Target Cells 2+ Anion Gap 14.0 mmol/L (3-11) Est Creatinine Clear Calc Drug Dose 17.2 ml/min Estimated GFR () 17.4 Estimated GFR (Non- 15.0 BUN/Creatinine Ratio 5.2 (10-20) Calcium Level 7.1 mg/dl (8.5-10.1) Phosphorus Level 6.1 mg/dl (2.5-4.9) Magnesium Level 2.0 mg/dl (1.8-2.4) Total Bilirubin 0.5 mg/dl (0.2-1) Direct Bilirubin 0.2 mg/dl (0-0.2) Aspartate Amino Transf (AST/SGOT) 13 U/L (15-37) Alanine Aminotransferase (ALT/SGPT) 12 U/L (12-78) Alkaline Phosphatase 175 U/L (45-117) Total Protein 6.1 gm/dl (6.4-8.2) Albumin 1.6 gm/dl (3.4-5.0) Allergies Coded Allergies: POLLEN (Verified Allergy, Unknown, "HAYFEVER", 09/11/16) Diazoxide (Verified Adverse Reaction, Intermediate, ELEVATE BP;N&V, ) NSAIDs (Verified Adverse Reaction, Unknown, KIDNEY TRANSPLANT, 09/11/16) Medications Current Inpatient Medications Medications (Trade) Dose Ordered Sig/Amanda Route Start Time Stop Time Status Last Admin Dose Admin Acetaminophen (Tylenol Tab) 650 mg Q4H PRN PO 09/11/16 09:30 10/11/16 09:29 Ondansetron HCl (Zofran Inj) 4 mg Q6H PRN IV 09/11/16 09:30 10/11/16 09:29 09/13/16 02:22 4 MG Aspirin (Ecotrin Tab) 81 mg DAILY PO 09/12/16 09:00 10/12/16 08:59 09/13/16 09:22 81 MG Atorvastatin Calcium (Lipitor Tab) 20 mg HS PO 09/11/16 21:00 10/11/16 20:59 09/12/16 21:31 20 MG Clopidogrel Bisulfate (plAVix TAB) 75 mg DAILY PO 09/12/16 09:00 10/12/16 08:59 09/13/16 09:22 75 MG Pantoprazole Sodium (Protonix Tab) 40 mg BID PO 09/11/16 21:00 10/11/16 20:59 09/13/16 09:22 40 MG Vitamin B Complex/ Vit C/Folic Acid (Nephrocaps) 1 cap DAILY PO 09/12/16 09:00 10/12/16 08:59 09/13/16 09:22 1 CAP Cinacalcet (Sensipar) 30 mg QAM PO 09/12/16 09:00 10/12/16 08:59 09/13/16 09:22 30 MG Psyllium Hydrophilic Mucilloid (Metamucil Powder) 1 pkt DAILY PO 09/12/16 09:00 10/12/16 08:59 09/12/16 08:37 1 PKT Oxycodone HCl 5 mg 5 mg Q4 PRN PO 09/11/16 10:15 09/25/16 10:14 09/12/16 14:45 5 MG Piperacillin Sod/ Tazobactam Sod/ Dextrose (Zosyn Iv/D5 100ml) 115 ml @ 200 mls/hr Q12@0800,2000 IV 09/11/16 20:00 09/20/16 20:35 09/13/16 09:21 200 MLS/HR Al Hydrox/Mg Hydrox/Simethicone (Maalox Max Susp) 15 ml ONE PRN PO 09/11/16 11:00 10/11/16 10:59 09/11/16 11:10 15 ML Vancomycin HCl (Consult) 1 ea UD PRN N/A 09/11/16 11:00 10/11/16 10:59 Piperacillin Sod/ Tazobactam Sod (Consult) 1 ea UD PRN N/A 09/11/16 11:00 10/11/16 10:59 Vancomycin HCl (Vancomycin Oral Soln) 125 mg QID PO 09/11/16 13:00 09/25/16 12:59 09/13/16 09:21 125 MG Raspberry 5 ml 5 ml QID PO 09/11/16 13:00 09/25/16 12:59 09/13/16 09:22 5 ML Sodium Chloride (Nss 1000ml) 1,000 ml @ 80 mls/hr [id number] IV 09/11/16 18:30 09/12/16 19:45 80 MLS/HR Hydromorphone HCl (Dilaudid Inj) 1 mg Q8 PRN IM 09/12/16 14:00 09/26/16 13:59 09/12/16 16:33 1 MG Prednisone (PredniSONE TAB) 10 mg DAILY PO 09/13/16 09:00 10/13/16 08:59 09/13/16 09:22 10 MG Impression (1) ESRD (end stage renal disease) on dialysis (2) Anemia (3) Secondary hyperparathyroidism of renal origin (4) Sepsis (5) HTN (hypertension) (6) Immunosuppression Sebastian is a 51-year-old gentlemen with complicated past medical history, including 3 renal transplant currently on hemodialysis Wednesday, Wednesday. He he admitted to the hospital with an episode of chest pain, vomiting and diarrhea, symptom currently resolved. He is on broad-spectrum antibiotic, C diff toxin assay negative blood culture still pending cardiac enzymes are unremarkable. Currently he is being treated for sepsis pending final culture reports. Overall feeling better. Has end-stage renal disease, on hemodialysis, had dialysis yesterday as regular schedule. Has anemia and secondary hyperparathyroidism, on Epogen, phosphate binder and Sensipar Has history of coronary artery disease previously had CABG and PTCA with stent currently asymptomatic. Recommendations -- currently otherwise clinically stable no acute indication for dialysis. Will keep on schedule for dialysis for next Wednesday. -- continued on empiric oral vancomycin for possible C colitis although C diff toxin assay was negative and continued on vanc and Zosyn empirically -- avoid IV fluid, changed to regular diet as per patient's request. -- continue on renal vitamins, phosphate binder and Sensipar --okay to be discharged from nephrology standpoint, if gets discharged he will have dialysis tomorrow as his regular schedule at the outpatient unit.
[2016-09-13 12:41] VITALS: BP 161/77; PULSE 80; TEMP 36.6; O2SAT 97
--- NOTE | 2016-09-13 12:45 | Cardiology Follow-Up ---
Subjective Subjective Date of Service: Sep 13, 2016. Pt evaluation today including: conversation w/ patient, physical exam, chart review, lab review, review of studies, review of inpatient medication list Additional Details: Patient feeling well this AM. No chest pain overnight or shortness of breath. No new complaints. Frequent PVCs, occasional bigeminy on telemetry Problem List Medical Problems: (1) Atrial flutter with rapid ventricular response Status: Acute (2) Chest pain Status: Acute (3) Chest pain Status: Acute (4) Chest pain Status: Acute (5) Elevated troponin Status: Acute (6) End stage renal disease Status: Acute (7) ESRD (end stage renal disease) Status: Acute (8) GI bleed Status: Acute (9) Hyperbilirubinemia Status: Acute (10) Lower GI bleeding Status: Acute (11) Peptic ulcer disease Status: Acute (12) Precordial chest pain Status: Acute (13) RUQ abdominal pain Status: Acute (14) Sepsis Status: Acute (15) Sepsis Status: Acute (16) Upper abdominal pain Status: Acute (17) Wrist pain, left Status: Acute Social History Problems: (1) H/O splenectomy Status: Acute Review of Systems Constitutional: + fatigue Respiratory: No cough, No shortness of breath Cardiac: + palpitations, No chest pain, No edema Abdomen: No nausea, No pain Neurologic: No memory loss Heme: No abnormal bleeding/bruising Endo: + fatigue Skin: No rash Objective Vital Signs Last Vital Signs Documentation Date Time Temp Pulse Resp B/P Pulse Ox O2 Delivery O2 Flow Rate FiO2 09/13/16 08:20 36.6 76 20 150/74 95 Room Air 09/13/16 08:00 2.0 Physical Exam: General Appearance: WD/WN, no apparent distress, + thin, + pertinent finding ( frail, ill looking) Neck: supple, no JVD Respiratory/Chest: chest non-tender, normal breath sounds, no respiratory distress Cardiovascular: regular rate, rhythm, no edema, no JVD, no murmur, + extra beats Abdomen: normal bowel sounds, soft Extremities: no pedal edema, no calf tenderness, normal capillary refill Neurologic/Psychiatric: alert, normal mood/affect, oriented x 3 Skin: normal color, warm/dry, no rash Assessment and Plan 1. Elevated troponin -- trop peaked. suspect demand heart strain. low suspicion for true ACS. Heparin off. 2. Severe coronary artery disease post remote bypass, prior complex stenting to LM into circumflex, distal LAD post HUMPHREYS-LAD anastomosis -- stable 3. Sepsis -- improved, on broad spectrum antibiotics, off stress dose steroids 4. Recent CDiff -- on PO vanc 5. ESRD on HD 6. Anemia -- stable 7. Frequent PVCs - potassium being supplemented Patient stable from a cardiac perspective. Low suspicion for true ACS or high-risk modifiable disease. -- Continue ASA and plavix -- High dose statin -- Would resume low dose beta-rubin Ok from cardiac standpoint for discharge when medical issues resolved. Follow- up with Dr. Molina. Continued [facility] stay due to: multiple IV medications needed Discharge planning: home Medications: Current Inpatient Medications Medications (Trade) Dose Ordered Sig/Amanda Route Start Time Stop Time Status Last Admin Dose Admin Acetaminophen (Tylenol Tab) 650 mg Q4H PRN PO 09/11/16 09:30 10/11/16 09:29 Ondansetron HCl (Zofran Inj) 4 mg Q6H PRN IV 09/11/16 09:30 10/11/16 09:29 09/13/16 02:22 4 MG Aspirin (Ecotrin Tab) 81 mg DAILY PO 09/12/16 09:00 10/12/16 08:59 09/13/16 09:22 81 MG Atorvastatin Calcium (Lipitor Tab) 20 mg HS PO 09/11/16 21:00 10/11/16 20:59 09/12/16 21:31 20 MG Clopidogrel Bisulfate (plAVix TAB) 75 mg DAILY PO 09/12/16 09:00 10/12/16 08:59 09/13/16 09:22 75 MG Pantoprazole Sodium (Protonix Tab) 40 mg BID PO 09/11/16 21:00 10/11/16 20:59 09/13/16 09:22 40 MG Vitamin B Complex/ Vit C/Folic Acid (Nephrocaps) 1 cap DAILY PO 09/12/16 09:00 10/12/16 08:59 09/13/16 09:22 1 CAP Cinacalcet (Sensipar) 30 mg QAM PO 09/12/16 09:00 10/12/16 08:59 09/13/16 09:22 30 MG Psyllium Hydrophilic Mucilloid (Metamucil Powder) 1 pkt DAILY PO 09/12/16 09:00 10/12/16 08:59 09/12/16 08:37 1 PKT Oxycodone HCl 5 mg 5 mg Q4 PRN PO 09/11/16 10:15 09/25/16 10:14 09/12/16 14:45 5 MG Piperacillin Sod/ Tazobactam Sod/ Dextrose (Zosyn Iv/D5 100ml) 115 ml @ 200 mls/hr Q12@0800,2000 IV 09/11/16 20:00 09/20/16 20:35 09/13/16 09:21 200 MLS/HR Al Hydrox/Mg Hydrox/Simethicone (Maalox Max Susp) 15 ml ONE PRN PO 09/11/16 11:00 10/11/16 10:59 09/11/16 11:10 15 ML Vancomycin HCl (Consult) 1 ea UD PRN N/A 09/11/16 11:00 10/11/16 10:59 Piperacillin Sod/ Tazobactam Sod (Consult) 1 ea UD PRN N/A 09/11/16 11:00 10/11/16 10:59 Vancomycin HCl (Vancomycin Oral Soln) 125 mg QID PO 09/11/16 13:00 09/25/16 12:59 09/13/16 09:21 125 MG Raspberry (Raspberry Syrup 5ml Cup) 5 ml QID PO 09/11/16 13:00 09/25/16 12:59 09/13/16 09:22 5 ML Hydromorphone HCl (Dilaudid Inj) 1 mg Q8 PRN IM 09/12/16 14:00 09/26/16 13:59 09/12/16 16:33 1 MG Prednisone (PredniSONE TAB) 10 mg DAILY PO 09/13/16 09:00 10/13/16 08:59 09/13/16 09:22 10 MG Potassium Chloride (Klor-Con M10) 40 meq 1230 ONCE PO 09/13/16 12:30 09/13/16 12:31 Lab Results: 09/13/16 05:30 Red Blood Count 2.88, Mean Corpuscular Volume 95.8, Mean Corpuscular Hemoglobin 30.6, Mean Corpuscular Hemoglobin Concent 31.9, Mean Platelet Volume 10.2, Neutrophils (%) (Auto) 65.3, Lymphocytes (%) (Auto) 22.4, Monocytes (%) (Auto) 10.8, Eosinophils (%) (Auto) 0.0, Basophils (%) (Auto) 0.2, Neutrophils # (Auto ) 8.49, Lymphocytes # (Auto) 2.92, Monocytes # (Auto) 1.41, Eosinophils # (Auto ) 0.00, Basophils # (Auto) 0.03 09/13/16 05:30 Test 09/13/16 05:30 White Blood Count 13.02 K/uL (4.8-10.8) Red Blood Count 2.88 M/uL (4.7-6.1) Hemoglobin 8.8 g/dL (14.0-18.0) Hematocrit 27.6 % (42-52) Mean Corpuscular Volume 95.8 fL (80-100) Mean Corpuscular Hemoglobin 30.6 pg (25-34) Mean Corpuscular Hemoglobin Concent 31.9 g/dl (32-36) Platelet Count 625 K/uL (130-400) Mean Platelet Volume 10.2 fL (7.4-10.4) Neutrophils (%) (Auto) 65.3 % Lymphocytes (%) (Auto) 22.4 % Monocytes (%) (Auto) 10.8 % Eosinophils (%) (Auto) 0.0 % Basophils (%) (Auto) 0.2 % Neutrophils # (Auto) 8.49 K/uL (1.4-6.5) Lymphocytes # (Auto) 2.92 K/uL (1.2-3.4) Monocytes # (Auto) 1.41 K/uL (0.11-0.59) Eosinophils # (Auto) 0.00 K/uL (0-0.5) Basophils # (Auto) 0.03 K/uL (0-0.2) RDW Standard Deviation 73.8 fL (36.4-46.3) RDW Coefficient of Variation 21.4 % (11.5-14.5) Immature Granulocyte % (Auto) 1.3 % Immature Granulocyte # (Auto) 0.17 K/uL (0.00-0.02) Nucleated RBC Absolute Count (auto) 0.35 K/uL (0-0) Nucleated Red Blood Cells % 2.7 % Polychromasia 1+ Basophilic Stippling 1+ Pappenheimer Bodies 1+ Target Cells 2+ Anion Gap 14.0 mmol/L (3-11) Est Creatinine Clear Calc Drug Dose 17.2 ml/min Estimated GFR () 17.4 Estimated GFR (Non- 15.0 BUN/Creatinine Ratio 5.2 (10-20) Calcium Level 7.1 mg/dl (8.5-10.1) Phosphorus Level 6.1 mg/dl (2.5-4.9) Magnesium Level 2.0 mg/dl (1.8-2.4) Total Bilirubin 0.5 mg/dl (0.2-1) Direct Bilirubin 0.2 mg/dl (0-0.2) Aspartate Amino Transf (AST/SGOT) 13 U/L (15-37) Alanine Aminotransferase (ALT/SGPT) 12 U/L (12-78) Alkaline Phosphatase 175 U/L (45-117) Total Protein 6.1 gm/dl (6.4-8.2) Albumin 1.6 gm/dl (3.4-5.0)
[2016-09-13 15:43] VITALS: BP 147/81; PULSE 79; TEMP 36.3; O2SAT 96
[2016-09-13] MEDS: HYDROmorphone INJ 1 MG/ML SYR IM PRN (15:53)
--- NOTE | 2016-09-13 16:27 | Progress Note ---
Subjective Date of Service: Sep 13, 2016. Subjective Pt evaluation today including: conversation w/ patient, physical exam, chart review, lab review, review of studies, conversation w/ sales and service consultant, review of inpatient medication list Mild right upper quadrant pain, which is not new, feeling generalized weakness, no more fever and chill, has 4 time diarrhea yesterday, has 2 times diarrhea today, however the documented per nursing staff was 0 Problem List Medical Problems: (1) Atrial flutter with rapid ventricular response Status: Acute (2) Chest pain Status: Acute (3) Chest pain Status: Acute (4) Chest pain Status: Acute (5) Elevated troponin Status: Acute (6) End stage renal disease Status: Acute (7) ESRD (end stage renal disease) Status: Acute (8) GI bleed Status: Acute (9) Hyperbilirubinemia Status: Acute (10) Lower GI bleeding Status: Acute (11) Peptic ulcer disease Status: Acute (12) Precordial chest pain Status: Acute (13) RUQ abdominal pain Status: Acute (14) Sepsis Status: Acute (15) Sepsis Status: Acute (16) Upper abdominal pain Status: Acute (17) Wrist pain, left Status: Acute Social History Problems: (1) H/O splenectomy Status: Acute Review of Systems Constitutional: + fatigue, + weakness, No chills, No fever, No problem reported , No sweats, No weight loss Eyes: No diplopia, No discharge, No eye pain, No redness, No worsening of vision ENT: No dental problems, No hearing loss, No nasal symptoms, No sore throat, No tinnitus, No trouble swallowing, No unusual epistaxis Respiratory: No cough, No dyspnea at rest, No dyspnea on exertion, No hemoptysis, No shortness of breath, No sputum, No wheezing Cardiac: No PND, No chest pain, No claudication, No edema, No orthopnea, No palpitations Abdomen: + diarrhea, + pain, No constipation, No nausea, No vomiting Musculoskeletal: No calf pain, No joint pain, No muscle pain, No swelling Male : No dysuria, No hematuria, No incontinence, No nocturia more than once/ night, No slowing stream, No urinary frequency Neurologic: No balance problems, No memory loss, No numbness/tingling, No paralysis, No vertigo, No weakness Psychiatric: No anhedonism, No anxiety, No depression symptoms, No insomnia, No substance abuse Heme: No abnormal bleeding/bruising, No clotting problems, No night sweats, No swollen lymph nodes Endo: No excessive thirst, No excessive urination, No fatigue Skin: No bleeding, No color change, No itch, No new/changing skin lesions, No rash Objective Vital Signs Date Time Temp Pulse Resp B/P Pulse Ox O2 Delivery O2 Flow Rate FiO2 09/13/16 15:43 36.3 79 19 147/81 96 Room Air 09/13/16 12:41 36.6 80 20 161/77 97 Room Air 09/13/16 12:00 Room Air 09/13/16 08:20 36.6 76 20 150/74 95 Room Air 09/13/16 08:00 Room Air 09/13/16 04:00 Room Air 09/13/16 03:55 36.4 79 18 148/77 96 Room Air 09/12/16 23:59 Room Air 09/12/16 23:15 36.7 83 16 121/76 97 Room Air 09/12/16 20:00 Room Air 09/12/16 19:13 82 18 137/78 95 Room Air Physical Exam General Appearance: WD/WN, no apparent distress, + thin, + pertinent finding ( frail chronically ill-looking) Eyes: normal inspection, PERRL, EOMI, sclerae normal ENT: normal ENT inspection, hearing grossly normal, pharynx normal Neck: supple, no adenopathy, thyroid normal, no JVD, no carotid bruits, trachea midline Respiratory/Chest: chest non-tender, normal breath sounds, no respiratory distress, no accessory muscle use, + decreased breath sounds Cardiovascular: regular rate, rhythm, no edema, no gallop, no JVD, no murmur Abdomen: normal bowel sounds, non tender, soft, no organomegaly, no pulsatile mass Extremities: normal range of motion, non-tender, normal inspection, no pedal edema, no calf tenderness, normal capillary refill, pelvis stable Neurologic/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: 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 as tested, no motor/sensory deficits, alert, normal mood/affect, oriented x 3 Skin: normal color, warm/dry, no rash Lymphatic: no adenopathy Laboratory Results Last 24 Hours Test 09/13/16 05:30 White Blood Count 13.02 K/uL Red Blood Count 2.88 M/uL Hemoglobin 8.8 g/dL Hematocrit 27.6 % Mean Corpuscular Volume 95.8 fL Mean Corpuscular Hemoglobin 30.6 pg Mean Corpuscular Hemoglobin Concent 31.9 g/dl Platelet Count 625 K/uL Mean Platelet Volume 10.2 fL Neutrophils (%) (Auto) 65.3 % Lymphocytes (%) (Auto) 22.4 % Monocytes (%) (Auto) 10.8 % Eosinophils (%) (Auto) 0.0 % Basophils (%) (Auto) 0.2 % Neutrophils # (Auto) 8.49 K/uL Lymphocytes # (Auto) 2.92 K/uL Monocytes # (Auto) 1.41 K/uL Eosinophils # (Auto) 0.00 K/uL Basophils # (Auto) 0.03 K/uL RDW Standard Deviation 73.8 fL RDW Coefficient of Variation 21.4 % Immature Granulocyte % (Auto) 1.3 % Immature Granulocyte # (Auto) 0.17 K/uL Nucleated RBC Absolute Count (auto) 0.35 K/uL Nucleated Red Blood Cells % 2.7 % Polychromasia 1+ Basophilic Stippling 1+ Pappenheimer Bodies 1+ Target Cells 2+ Sodium Level 145 mmol/L Potassium Level 3.1 mmol/L Chloride Level 110 mmol/L Carbon Dioxide Level 21 mmol/L Anion Gap 14.0 mmol/L Blood Urea Nitrogen 22 mg/dl Creatinine 4.30 mg/dl Est Creatinine Clear Calc Drug Dose 17.2 ml/min Estimated GFR () 17.4 Estimated GFR (Non- 15.0 BUN/Creatinine Ratio 5.2 Random Glucose 89 mg/dl Calcium Level 7.1 mg/dl Phosphorus Level 6.1 mg/dl Magnesium Level 2.0 mg/dl Total Bilirubin 0.5 mg/dl Direct Bilirubin 0.2 mg/dl Aspartate Amino Transf (AST/SGOT) 13 U/L Alanine Aminotransferase (ALT/SGPT) 12 U/L Alkaline Phosphatase 175 U/L Total Protein 6.1 gm/dl Albumin 1.6 gm/dl Assessment and Plan 51 yo M with Sepsis likely secondary to gastrointestinal source, admitted on 2016 Sepsis upon admission likely secondary to gastrointestinal source, possible recurrent cdiff, seems improving possible sepsis with leukocytoses and an elevated lactase, seems totally resolved, It is puzzle to me why he was having sepsis , and suddenly resolved , source of infection from recurrent of C. difficile possible not able to explain all of the signs and symptoms when he was admitted IV antibiotics, cont hemodynamically stable, possibly c. diff diarrhea as just finished abx course x 28 days on 09/09/2016 Has been c. diff positive in the past prior to last admit as well, however in this admission C. difficile was negative Blood culture has been negative for totally 48 hours Therefore I will stop IV antibiotics, continue oral vancomycin for C. difficile recurrence, and watch contact precautions - Checking abdominal wound for group A strep as was seen during last admission- pt was finishing course of keflex - ID consulted for antibiotic regimen is getting stress dose of hydrocortisone, was stop and resume home dose chronic prednisone 5 mg daily b/c pt is better and stable ESRD on HD s/p 3 kidney transplants on chronic prednisone 5 mg daily, resumed - Consulted nephrology, HD tomorrow, avoid IV fluid Chest pain upon admission with mild elevated tn, likely demanding ischemia, DC heparin drip, cardio on the case, continue current medication CAD x 3 stents in 2008 Previous [place] EKG concerning for new ST wave inversion in leads II and III compared with previous on 08/18/16. Abdominal Wound s/p cholecystectomy January 2016, stable - Pt is s/p cholecystectomy where pt reports gallbladder adhered to the liver. -. more yellow yesterday, checked LFT was in normal range Hx GI bleed PMHx of recent sepsis secondary to c. difficile colitis, ESRD on HD s/p 3 kidney transplants, hx [place], CAD s/p CABG with 3 stents placed in 2008 on plavix, HTN, liver cirrhosis, CHF with LVEF= 40%, hx gi bleed, and post cholecystectomy abdominal wound. DVT ppx: on plavix, SCDs CODE STATUS: FULL CODE discuss with patient and about a care plan, and discharged to home if continue to stable tomorrow after discontinue IV abx Encourage out of bed to chair and walk Continued [facility] stay due to: multiple IV medications needed Discharge planning: home
[2016-09-13 19:59] VITALS: BP 147/81; PULSE 79; TEMP 36.3; O2SAT 96
[2016-09-13] MEDS: ATORVASTATIN 20 MG TAB PO SCH (22:05)
[2016-09-13 23:53] VITALS: BP 147/76; PULSE 72; TEMP 36.4; O2SAT 100
[2016-09-14] VITALS (21 sets, daily range): BP systolic 129–167; BP diastolic 70–98; PULSE 67–78; TEMP 36.4–36.7; O2SAT 98
[2016-09-14 07:04] LABS: BASO % 0.5 %; BASO ABS # 0.07 K/uL (0-0.2); EOS % 0.1 %; HEMATOCRIT 29.6 % (42-52); IG% 1.9 %; LYMPH % 24.3 %; LYMPH ABS # 3.63 K/uL (1.2-3.4); MEAN CELL VOLUME 95.2 fL (80-100); MEAN CORPUSCULAR HEMOGLOBIN 30.5 pg (25-34); MEAN CORPUSCULAR HGB CONC 32.1 g/dl (32-36); MEAN PLATELET VOLUME 9.8 fL (7.4-10.4); NEUT % 58.2 %; PLATELET COUNT 619 K/uL (130-400); RED BLOOD COUNT 3.11 M/uL (4.7-6.1); WHITE BLOOD COUNT 14.91 K/uL (4.8-10.8)
[2016-09-14 07:51] LABS: ANISOCYTOSIS PRESENT; COMPLETE YES; HOWELL-JOLLY BODIES OCCASIONAL; POLYCHROMASIA 1+; SPHEROCYTE OCCASIONAL; TARGET CELLS 2+
[2016-09-14 07:58] LABS: BUN/CREATININE RATIO 5.9 (10-20); CALCIUM 7.2 mg/dl (8.5-10.1); CREATININE 5.7 mg/dl (0.60-1.40); MAGNESIUM 2.1 mg/dl (1.8-2.4); PHOSPHORUS 5.4 mg/dl (2.5-4.9)
[2016-09-14] MEDS: PSYLLIUM 58.6% PWD PACK S\\F PO SCH (08:00)
[2016-09-14] MEDS: ONDANSETRON INJ 2 MG/ML 2 ML VIAL IV PRN (09:25)
[2016-09-14] MEDS: HYDROmorphone INJ 1 MG/ML SYR IM PRN (09:27)
[2016-09-14] MEDS: VANCOMYCIN HCL 125 MG/2.5ML SOLN PO SCH ×2 (09:32→12:33)
[2016-09-14] MEDS: CLOPIDOGREL BISULFATE 75 MG TAB PO SCH (09:32)
[2016-09-14] MEDS: ASPIRIN 81 MG ECTAB PO SCH (09:33)
[2016-09-14] MEDS: NEPHROCAPS PO SCH (09:33)
[2016-09-14] MEDS: CINACALCET 30 MG TAB PO SCH (09:34)
[2016-09-14] MEDS: PANTOprazole SOD 40 MG TAB PO SCH (09:34)
[2016-09-14] MEDS: RASPBERRY SYRUP 5 ML UDP PO SCH ×2 (09:35→12:33)
--- NOTE | 2016-09-14 10:35 | NEPHROLOGY PROGRESS NOTE ---
DATE: 09/14/2016 SUBJECTIVE: Mr. Segura says that he is feeling quite well. He has been eating. He has had no nausea or vomiting. He has some mild right-sided abdominal discomfort. He has been moving his bowels. He has had no shaking chills or sweats. He has had no recurrent chest pain or shortness of breath. In general, he feels as if he is much improved and is anxious for discharge. OBJECTIVE: GENERAL: On physical exam, Mr. Segura appears as a chronically, but not acutely ill gentleman, younger than his stated age of 51. VITAL SIGNS: He is afebrile (36.4), his blood pressure currently 164/80 with a pulse of 70 and regular. Respiratory rate is 18, his pulse ox 98% on room air. SKIN: Shows a very sallow complexion. There is no obvious rash or infiltrative skin disease. His skin turgor seems normal. He has multiple scars from prior surgical procedures. That includes a midsternal scar from coronary artery bypass surgery, right upper quadrant scars from his cholecystectomy and right lower quadrant scars from his kidney transplants. He has a scar on the left leg from trauma. LYMPHATICS: Show no palpable lymphadenopathy. HEAD: Normal. EYES: Grossly normal. He does not have any conjunctival icterus. The ocular fundi were not examined. EARS, NOSE, MOUTH AND THROAT: Unremarkable. Dentition is in very poor repair. Mucous membranes are moist. NECK: Supple. He has no jugular venous distention. There are no carotid bruits and no thyromegaly. CHEST: Clear to auscultation. CARDIAC: Shows a regular rhythm. S1 and S2 are normal. He has a soft systolic murmur at the base radiating to the neck. ABDOMEN: Soft. He has some right lower quadrant tenderness over his right lower quadrant hernia and transplanted kidney. He has no real tenderness in the right upper quadrant or in the left side of his abdomen. Renal grafts are palpable in both lower quadrants. EXTREMITIES: Show no cyanosis, clubbing or peripheral edema. Peripheral pulses are diminished, but present. There is a bruit over the right femoral artery as a result of previous traumatic AV fistula. NEUROLOGIC: Shows no lateralizing changes. PERTINENT LABORATORY WORK: Shows a white count of 14,910 with a normal differential. His hemoglobin is 9.5. His hematocrit 29.6, his platelet count is 619,000. His clinical chemistries show a sodium of 146 mmol/L, potassium 3.0 mmol/L, chloride is 111 mmol/L, and CO2 content 20 mmol/L, BUN is 34, creatinine 5.70. Serum calcium is 7.2, his phosphate 5.4. His magnesium 2.1. A total protein done yesterday is 6.1 with an albumin of 1.6. All cultures done including 2 blood cultures at the time of admission showed no growth. His stool for C. difficile toxin is negative despite being positive before. Stool cultures are negative for enteric pathogens and a MRSA screen is negative. ASSESSMENT: Certainly, Mr. Segura appears to be significantly better. He has had no recurrent chest pain or shortness of breath. Gastrointestinal symptoms appear to have resolved. All of this occurring after he received IV vancomycin, IV Zosyn and has been resumed with oral vancomycin. PLAN: No change in therapy. Dialysis today. Apparently he will be discharged later today and should be discharged on all regular medications including his vancomycin. I will continue to follow him in the dialysis unit. He will continue with his usual schedule there. His dialysis for today is already underway.
[2016-09-14] MEDS ORDERED: VNCS125 PO (10:41)
--- NOTE | 2016-09-14 10:43 | Discharge Instructions ---
Discharge Instructions Admission Reason for Admission: Sepsis Discharge Discharge Diagnosis / Problem: Sepsis Discharge Goals Goal(s): Decrease discomfort, Improve function, Increase independence, Improve disease control, Learn about illness, Diagnostic testing, Therapeutic intervention, Prevent Disease Progression Activity Recommendations Activity Limitations: resume your previous activity Shower/Bathe: no limitations . Instructions / Follow-Up Instructions / Follow-Up Patient to be discharged home Please continue to take vancomycin 4 times day by mouth for the next month Will need to follow up with Dr. Singh in 2-3 weeks Please follow up with Dr Azevedo in 1-2 weeks If worsening fevers, abdominal pain, nausea, vomiting or diarrhea please report to ER Current Hospital Diet Patient's current hospital diet: Regular Diet Discharge Diet Recommended Diet: Renal Diet Pending Studies Studies pending at discharge: no Medical Emergencies . Who to Call and When: Medical Emergencies: If at any time you feel your situation is an emergency, please call 911 immediately. . Non-Emergent Contact Non-Emergency issues call your: Primary Care Provider Call Non-Emergent contact if: your pain is worsening . . "Provider Documentation" section prepared by Venkatesh Denis. VTE Core Measure Inpt VTE Proph given/why not?: Other Anticoagulation, SCD's
--- NOTE | 2016-09-14 11:24 | Infectious Disease Progress Nt ---
Progress Note Date of Service Sep 14, 2016. Subjective Pt evaluation today including: conversation w/ patient, physical exam, chart review, lab review, review of studies, conversation w/ method consultant (Dr. Denis) , review of inpatient medication list WBC count this morning was 14.91. Creatinine was 5.70 this morning. Stool culture was negative, and C. Diff toxin was negative. MRSA nasal swab and blood cultures were also negative. The patient states that his stools have been slightly more formed but still loose. He feels that he may have just picked up a 'virus'. He has not had any continued chest pains. He has not had any drainage from his abdominal wound. All Other Systems: Reviewed and Negative Medications Current Inpatient Medications Medications (Trade) Dose Ordered Sig/Amanda Route Start Time Stop Time Status Last Admin Dose Admin Acetaminophen (Tylenol Tab) 650 mg Q4H PRN PO 09/11/16 09:30 10/11/16 09:29 Ondansetron HCl (Zofran Inj) 4 mg Q6H PRN IV 09/11/16 09:30 10/11/16 09:29 09/14/16 09:25 4 MG Aspirin (Ecotrin Tab) 81 mg DAILY PO 09/12/16 09:00 10/12/16 08:59 09/14/16 09:33 81 MG Atorvastatin Calcium (Lipitor Tab) 20 mg HS PO 09/11/16 21:00 10/11/16 20:59 09/13/16 22:05 20 MG Clopidogrel Bisulfate (plAVix TAB) 75 mg DAILY PO 09/12/16 09:00 10/12/16 08:59 09/14/16 09:32 75 MG Pantoprazole Sodium (Protonix Tab) 40 mg BID PO 09/11/16 21:00 10/11/16 20:59 09/14/16 09:34 40 MG Vitamin B Complex/ Vit C/Folic Acid (Nephrocaps) 1 cap DAILY PO 09/12/16 09:00 10/12/16 08:59 09/14/16 09:33 1 CAP Cinacalcet (Sensipar) 30 mg QAM PO 09/12/16 09:00 10/12/16 08:59 09/14/16 09:34 30 MG Psyllium Hydrophilic Mucilloid (Metamucil Powder) 1 pkt DAILY PO 09/12/16 09:00 10/12/16 08:59 09/12/16 08:37 1 PKT Oxycodone HCl (Roxicodone Immediate Rel Tab) 5 mg Q4 PRN PO 09/11/16 10:15 09/25/16 10:14 09/12/16 14:45 5 MG Al Hydrox/Mg Hydrox/Simethicone (Maalox Max Susp) 15 ml ONE PRN PO 09/11/16 11:00 10/11/16 10:59 09/11/16 11:10 15 ML Vancomycin HCl (Vancomycin Oral Soln) 125 mg QID PO 09/11/16 13:00 09/25/16 12:59 09/14/16 09:32 125 MG Raspberry (Raspberry Syrup 5ml Cup) 5 ml QID PO 09/11/16 13:00 09/25/16 12:59 09/14/16 09:35 5 ML Hydromorphone HCl (Dilaudid Inj) 1 mg Q8 PRN IM 09/12/16 14:00 09/26/16 13:59 09/14/16 09:27 1 MG Prednisone (PredniSONE TAB) 10 mg DAILY PO 09/13/16 09:00 10/13/16 08:59 09/14/16 09:32 10 MG Objective Vital Signs Date Time Temp Pulse Resp B/P Pulse Ox O2 Delivery O2 Flow Rate FiO2 09/14/16 11:00 71 159/91 09/14/16 10:45 72 167/87 09/14/16 10:30 70 149/98 09/14/16 10:15 70 151/82 09/14/16 10:00 69 146/85 09/14/16 09:45 70 164/80 09/14/16 09:30 71 164/86 09/14/16 09:16 67 160/79 09/14/16 08:55 36.4 70 159/90 09/14/16 07:45 36.4 67 18 148/71 98 Room Air 09/14/16 00:00 Room Air 09/13/16 23:53 36.4 72 18 147/76 100 Room Air 09/13/16 20:00 Room Air 09/13/16 19:59 36.3 79 19 96 2.0 09/13/16 16:00 Room Air 09/13/16 15:43 36.3 79 19 147/81 96 Room Air 09/13/16 12:41 36.6 80 20 161/77 97 Room Air 09/13/16 12:00 Room Air Physical Exam General Appearance: WD/WN, no apparent distress Eyes: normal inspection, sclerae normal ENT: hearing grossly normal Neck: supple, + adenopathy present Respiratory/Chest: chest non-tender, lungs clear, normal breath sounds, no respiratory distress, no accessory muscle use Cardiovascular: regular rate, rhythm, + systolic murmur Abdomen: normal bowel sounds, non tender, soft Extremities: normal range of motion Neurologic/Psychiatric: alert, normal mood/affect Skin: warm/dry, no rash, + pertinent finding (Multiple healed abdominal scars. Very small healing right upper abdominal wound. No drainage, surround erythema, edema, or tenderness today.) Laboratory Results Item Value Date Time MRSA DNA Surveillance Screen - Final Complete 09/11/16 1210 Nasal Specimen Negative for MRSA by DNA Probe WBC Smear - Final Complete 09/11/16 1016 Stool C.difficile Toxin B Gene (PCR) - Final Complete 09/11/16 1016 Stool No C. difficile toxin B gene detected Blood Culture - Preliminary Resulted 09/11/16 0758 Blood NO GROWTH TO DATE. Blood Culture - Preliminary Resulted 09/11/16 0740 Blood NO GROWTH TO DATE. Last 24 Hours Test 09/14/16 06:48 White Blood Count 14.91 K/uL Red Blood Count 3.11 M/uL Hemoglobin 9.5 g/dL Hematocrit 29.6 % Mean Corpuscular Volume 95.2 fL Mean Corpuscular Hemoglobin 30.5 pg Mean Corpuscular Hemoglobin Concent 32.1 g/dl Platelet Count 619 K/uL Mean Platelet Volume 9.8 fL Neutrophils (%) (Auto) 58.2 % Lymphocytes (%) (Auto) 24.3 % Monocytes (%) (Auto) 15.0 % Eosinophils (%) (Auto) 0.1 % Basophils (%) (Auto) 0.5 % Neutrophils # (Auto) 8.69 K/uL Lymphocytes # (Auto) 3.63 K/uL Monocytes # (Auto) 2.23 K/uL Eosinophils # (Auto) 0.01 K/uL Basophils # (Auto) 0.07 K/uL RDW Standard Deviation 72.1 fL RDW Coefficient of Variation 20.9 % Immature Granulocyte % (Auto) 1.9 % Immature Granulocyte # (Auto) 0.28 K/uL Nucleated RBC Absolute Count (auto) 0.61 K/uL Nucleated Red Blood Cells % 4.1 % Polychromasia 1+ Anisocytosis PRESENT Spherocytes OCCASIONAL Pappenheimer Bodies 1+ Target Cells 2+ Carter-Lemont Bodies OCCASIONAL Sodium Level 146 mmol/L Potassium Level 3.0 mmol/L Chloride Level 111 mmol/L Carbon Dioxide Level 20 mmol/L Anion Gap 15.0 mmol/L Blood Urea Nitrogen 34 mg/dl Creatinine 5.70 mg/dl Est Creatinine Clear Calc Drug Dose 13.0 ml/min Estimated GFR () 12.3 Estimated GFR (Non- 10.7 BUN/Creatinine Ratio 5.9 Random Glucose 70 mg/dl Calcium Level 7.2 mg/dl Phosphorus Level 5.4 mg/dl Magnesium Level 2.1 mg/dl Random Vancomycin Level 15.5 mcg/ml Assessment and Plan Patient with extensive medical history and acute chest pain, abdominal pain, diarrhea and fever [employer]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 It does seem likely that this patient had a recurrence of his C. Diff even with the negative toxin. He currently is on PO Vancomycin, and should continue this at 4 times daily dosing for approximately 1 month. I will see the patient as an outpatient and likely continue Vancomycin for a prolonged tapering course. He may need suppressive therapy indefinitely. Otherwise, the patient is OK for D/C from ID perspective. Thanks Case reviewed and agree with above assessment.
--- NOTE | 2016-09-14 13:41 | Discharge Summary ---
Discharge Summary Admission Date: Sep 11, 2016 at 09:34 Discharge Date: Sep 14, 2016 Discharge Disposition: Home Principal Diagnosis: C diff Immunizations: Have You Had Influenza Vaccine: No Influenza Vaccine Date: May 03, 2008 History of Tetanus Vaccine?: Unknown Tetanus Immunization Date: Oct 06, 2000 History of Pneumococcal: No Pneumococcal Date: Oct 06, 2005 History of Hepatitis B Vaccine: Unknown Hepatitis Immunization Date: Oct 06, 2000 Consultations: Infectious disease Nephrology Medication Reconciliation New Medications: Vancomycin HCl (Vancomycin HCl) 125 Mg/2.5 Ml Susp 125 MG PO QID for 30 Days, #120 TABS Continued Medications: Aspirin (Aspirin Ec) 81 Mg Tab 81 MG PO DAILY Atorvastatin (Atorvastatin Calcium) 20 Mg Tab 20 MG PO HS, #90 Cinacalcet Hydrochloride (Sensipar) 30 Mg Tab 30 MG PO QAM, #90 Clopidogrel Bisulfate (Clopidogrel) 75 Mg Tab 75 MG PO DAILY, #90 Oxycodone HCl (Oxycodone HCl) 5 Mg Tab 5 MG PO Q8 PRN for Pain Pantoprazole (Pantoprazole Sodium) 40 Mg Tab 40 MG PO BID, #60 Prednisone Tab (Prednisone) 10 Mg Tab 10 MG PO DAILY for 30 Days, #30 TAB NS Psyllium (Metamucil) 48.57 % Pow 1 PKT PO DAILY Vitamin B Cmplx/Vitc/Folic Ac (Nephrocaps) Cap 1 CAP PO DAILY, CAP Discharge Exam Review of Systems: Constitutional: No chills, No fever Respiratory: No cough, No sputum Cardiovascular: No chest pain, No orthopnea Abdomen: No diarrhea, No nausea, No pain, No vomiting Musculoskeletal: No joint pain, No muscle pain Genitourinary - Male: No dysuria, No hematuria, No urinary frequency Neurologic: No paralysis, No weakness Physical Exam: General Appearance: WD/WN, no apparent distress Neck: supple, no adenopathy Respiratory/Chest: chest non-tender, lungs clear, normal breath sounds Cardiovascular: regular rate, rhythm, no edema, no gallop Abdomen / GI: non tender, soft Neurologic/Psychiatric: alert, oriented x 3 Hospital Course 51 yo M with Sepsis likely secondary to gastrointestinal source, admitted on 2016 Sepsis upon admission likely secondary to gastrointestinal source, possible recurrent cdiff, seems improving possible sepsis with leukocytoses and an elevated lactase, seems totally resolved, possibly c. diff diarrhea as just finished abx course x 28 days on 09/09/2016 Has been c. diff positive in the past prior to last admit as well, however in this admission C. difficile was negative Blood culture has been negative for totally 48 hours Continue oral vancomycin for C QID for 1 month per ID recs and f/u with ID on discharge ESRD on HD s/p 3 kidney transplants on chronic prednisone 5 mg daily, resumed - Consulted nephrolog Chest pain upon admission with mild elevated tn, likely demanding ischemia, DC heparin drip, cardio on the case, continue current medication CAD x 3 stents in 2008 Previous [place] EKG concerning for new ST wave inversion in leads II and III compared with previous on 08/18/16. Abdominal Wound s/p cholecystectomy January 2016, stable - Pt is s/p cholecystectomy where pt reports gallbladder adhered to the liver. Hx GI bleed PMHx of recent sepsis secondary to c. difficile colitis, ESRD on HD s/p 3 kidney transplants, hx [place], CAD s/p CABG with 3 stents placed in 2008 on plavix, HTN, liver cirrhosis, CHF with LVEF= 40%, hx gi bleed, and post cholecystectomy abdominal wound. DVT ppx: on plavix, SCDs CODE STATUS: FULL CODE Total Time Spent: Greater than 30 minutes This includes examination of the patient, discharge planning, medication reconciliation, and communication with other providers. Discharge Instructions Please refer to the electronic Patient Visit Report (Discharge Instructions) for additional information. Additional Copies To Todd Azevedo M.D.
[2016-11-21] MEDS ORDERED: CPC PO (11:42)
[2016-12-13] MEDS ORDERED: IMDSR60 PO (11:26)
== END 2016-09-14 14:35 | disposition home or self-care (01) | DRG 871 ==
LOC: ENRESERVDT → ENRESERVTM → EDBD 07:05 → C.EDA 07:06 → C.EDINP 09:34 → EDBEDREQ 09:50 → C.2E 15:37 → C.MS4W 09-13 16:28
PROVIDERS: ADMIT Hospitalist; ATTEND Hospitalist
DX: A41.9 Sepsis, unspecified organism (principal); N18.6 End stage renal disease; A09 Infectious gastroenteritis and colitis, unspecified; Z94.0 Kidney transplant status; I24.8 Other forms of acute ischemic heart disease; I13.2 Hypertensive heart and chronic kidney disease with heart failure and with stage 5 chronic kidney disease, or end stage renal disease; I44.2 Atrioventricular block, complete; N25.81 Secondary hyperparathyroidism of renal origin; T81.89XD Other complications of procedures, not elsewhere classified, subsequent encounter; Y83.6 Removal of other organ (partial) (total) as the cause of abnormal reaction of the patient, or of later complication, without mention of misadventure at the time of the procedure; R07.9 Chest pain, unspecified; R94.31 Abnormal electrocardiogram [ECG] [EKG]; R74.8 Abnormal levels of other serum enzymes; I49.3 Ventricular premature depolarization; I25.10 Atherosclerotic heart disease of native coronary artery without angina pectoris; K74.60 Unspecified cirrhosis of liver; I50.9 Heart failure, unspecified; I73.9 Peripheral vascular disease, unspecified; E78.5 Hyperlipidemia, unspecified; D64.9 Anemia, unspecified; G47.33 Obstructive sleep apnea (adult) (pediatric); I25.2 Old myocardial infarction; Z99.2 Dependence on renal dialysis; Z90.81 Acquired absence of spleen; Z95.1 Presence of aortocoronary bypass graft; Z95.5 Presence of coronary angioplasty implant and graft; Z87.891 Personal history of nicotine dependence; Z86.19 Personal history of other infectious and parasitic diseases; Z79.52 Long term (current) use of systemic steroids; Z79.82 Long term (current) use of aspirin; Z79.02 Long term (current) use of antithrombotics/antiplatelets; Z79.899 Other long term (current) drug therapy; Z79.891 Long term (current) use of opiate analgesic

== ENCOUNTER 2016-11-18 21:38 | Observation (INO) | payer OTHER ==
[~2016-11-18] VITALS: Ht 167.6 cm; Wt 64.2 kg
[~2016-11-18 21:38] MED LIST changes: +PANT40TA2 PO; -PRED10TA PO; -PRT/40 PO
[2016-11-18 21:42] VITALS: Ht 167.6 cm; Wt 64.2 kg
[2016-11-18] MEDS ORDERED: MoRPHine SULFATE 4 MG/ML 1 ML CARP\\VIAL IV STA (21:54)
[2016-11-18] MEDS ORDERED: ONDANSETRON INJ 2 MG/ML 2 ML VIAL IV STA (21:54)
--- NOTE | 2016-11-18 21:59 | EMERGENCY ROOM VISIT NOTE ---
History Report prepared by Belkisiblazaro: Nawaf De Luna Under the Supervision of: Dr. Constantine Fuller D.O. First contact with patient: 21:47 Chief Complaint: CHEST PAIN Stated Complaint: CHEST PAIN Nursing Triage Summary: Patient presents ALS for evaluation of left sided chest pain/cramping that began a few days ago, but worsened in pain tonight around 2024 while at rest. Associates SOB yesterday; denies any at present time. Hx: Kidney transplant x3; cardiac arrest x2; cardiac cath with stent placement x3. Patient gets dialysis 3x/week. History of Present Illness The patient is a 51 year old male who presents to the Emergency Room with complaints of persistent left-sided chest pain that started at approximately 2030 tonight. The pain radiates to his neck and armpits. The patient rates the pain 8/10 in severity, which was worsened with movement. The patient was given Aspirin, Nitroglycerin, and Morphine Sulfate en route to the ED. The pain was initially improved after receiving Morphine but subsequently increased. The patient has had pain in the left rib area for the past 1.5 days. The patient recently had a cold. He has a cardiac history with coronary stents placed. The patient follows up with Dr. Molina ([facility]). The patient had a dialysis treatment this morning. Source of History: patient Onset: 2029 tonight Position: chest (left) Symptom Intensity: 8/10 Timing: other (persistent) Modifying Factors (Worsening): movement Review of Systems See HPI for pertinent positives and negatives. A total of ten systems were reviewed and were otherwise negative. Past Medical & Surgical Medical Problems: (1) Abdominal pain (2) Acute H. pylori gastric ulcer (3) Acute respiratory failure (4) Anemia (5) Atrial flutter (6) Bacteremia (7) C. difficile colitis (8) CAD (coronary artery disease) (9) Chronic systolic CHF (congestive heart failure) (10) End-stage renal disease on hemodialysis (11) ESRD (end stage renal disease) on dialysis (12) Fever (13) Gastric mass (14) H. pylori infection (15) HTN (hypertension) (16) Immunosuppression (17) Intractable abdominal pain (18) Leukocytosis (19) Liver cirrhosis (20) NH (myocardial infarction) (21) Postoperative wound infection (22) Secondary hyperparathyroidism of renal origin (23) SIRS (systemic inflammatory response syndrome) (24) Syncope Surgical Problems: (1) History of renal transplant (2) History of renal transplant (3) Hx of CABG Family History FH: heart disease Social History Smoking Status: Never Smoker Alcohol Use: none Drug Use: none Marital Status: Housing Status: lives with significant other Occupation Status: employed, disabled Current/Historical Medications Scheduled Aspirin (Aspirin Ec), 81 MG PO DAILY Atorvastatin (Atorvastatin Calcium), 20 MG PO HS Cinacalcet Hydrochloride (Sensipar), 30 MG PO QAM Clopidogrel Bisulfate (Clopidogrel), 75 MG PO DAILY Isosorbide Mononitrate (Isosorbide Mononitrate ER), 90 MG PO BID Metoprolol Succinate (Metoprolol Succinate ER), 100 MG PO BID Pantoprazole (Pantoprazole Sodium), 40 MG PO DAILY Prednisone (Prednisone), 5 MG PO DAILY Sevelamer Carbonate (Renvela), 1,600 MG PO TID Vitamin B Cmplx/Vitc/Folic Ac (Nephrocaps), 1 CAP PO DAILY Vitamin E (Vitamin E), 400 UNIT PO DAILY Scheduled PRN Hydrocodone/Acetaminophen 5MG/325MG ([place] 5MG/325MG), 1 TAB PO Q4 PRN for Pain Allergies Coded Allergies: POLLEN (Verified Allergy, Unknown, "HAYFEVER", 11/18/16) Diazoxide (Verified Adverse Reaction, Intermediate, ELEVATE BP;N&V, ) NSAIDs (Verified Adverse Reaction, Unknown, KIDNEY TRANSPLANT, 11/18/16) Physical Exam Vital Signs Date Time Temp Pulse Resp B/P Pulse Ox O2 Delivery O2 Flow Rate FiO2 11/18/16 22:52 87 18 103/64 93 Room Air 11/18/16 22:25 89 11/18/16 21:47 93 Room Air 11/18/16 21:42 37.0 56 18 135/82 99 Room Air 11/18/16 21:42 93 Room Air Physical Exam GENERAL: Awake, alert, well-appearing, in no distress HENT: Normocephalic, atraumatic. Oropharynx unremarkable. EYES: Normal conjunctiva. Sclera non-icteric. NECK: Supple. No nuchal rigidity. FROM. No JVD. RESPIRATORY: Clear to auscultation. CARDIAC: Regular rate, normal rhythm. Extremities warm and well perfused. Pulses equal. ABDOMEN: Soft, non-distended. No tenderness to palpation. No rebound or guarding. No masses. RECTAL: Deferred. MUSCULOSKELETAL: Chest examination reveals no tenderness. The back is symmetrical on inspection without obvious abnormality. There is no CVA tenderness to palpation. No joint edema. AV graft left forearm. LOWER EXTREMITIES: Calves are equal size bilaterally and non-tender. No edema. No discoloration. NEURO: Normal sensorium. No sensory or motor deficits noted. SKIN: No rash or jaundice noted. Medical Decision & Procedures ER Provider Diagnostic Interpretation: X-ray: Per my interpretation, radiologist review. CHEST ONE VIEW PORTABLE HISTORY: Atypical CHEST PAIN COMPARISON: Chest 09/11/2016. FINDINGS: The heart remains moderately enlarged. No pleural effusions. No pneumothorax. Mild central pulmonary vascular congestion without overt edema. This remains unchanged. Poststernotomy changes. Upper abdominal surgical clips. No new focal lung consolidations to suggest pneumonia. IMPRESSION: Cardiomegaly with mild central pulmonary vascular congestion. Electronically signed by: Smith Reed M.D. 11/18/2016 10:20 PM Dictated Date/Time: 11/18/2016 10:19 PM Laboratory Results 11/18/16 21:20 Red Blood Count 4.40, Mean Corpuscular Volume 90.7, Mean Corpuscular Hemoglobin 28.9, Mean Corpuscular Hemoglobin Concent 31.8, Mean Platelet Volume 10.5, Neutrophils (%) (Auto) 26.5, Lymphocytes (%) (Auto) 56.3, Monocytes (%) (Auto) 14.8, Eosinophils (%) (Auto) 1.9, Basophils (%) (Auto) 0.3, Neutrophils # (Auto ) 4.03, Lymphocytes # (Auto) 8.55, Monocytes # (Auto) 2.24, Eosinophils # (Auto ) 0.29, Basophils # (Auto) 0.04 11/18/16 21:20 Test 11/18/16 21:20 11/18/16 21:45 White Blood Count 15.18 K/uL (4.8-10.8) Red Blood Count 4.40 M/uL (4.7-6.1) Hemoglobin 12.7 g/dL (14.0-18.0) Hematocrit 39.9 % (42-52) Mean Corpuscular Volume 90.7 fL (80-100) Mean Corpuscular Hemoglobin 28.9 pg (25-34) Mean Corpuscular Hemoglobin Concent 31.8 g/dl (32-36) Platelet Count 437 K/uL (130-400) Mean Platelet Volume 10.5 fL (7.4-10.4) Neutrophils (%) (Auto) 26.5 % Lymphocytes (%) (Auto) 56.3 % Monocytes (%) (Auto) 14.8 % Eosinophils (%) (Auto) 1.9 % Basophils (%) (Auto) 0.3 % Neutrophils # (Auto) 4.03 K/uL (1.4-6.5) Lymphocytes # (Auto) 8.55 K/uL (1.2-3.4) Monocytes # (Auto) 2.24 K/uL (0.11-0.59) Eosinophils # (Auto) 0.29 K/uL (0-0.5) Basophils # (Auto) 0.04 K/uL (0-0.2) RDW Standard Deviation 62.1 fL (36.4-46.3) RDW Coefficient of Variation 19.1 % (11.5-14.5) Immature Granulocyte % (Auto) 0.2 % Immature Granulocyte # (Auto) 0.03 K/uL (0.00-0.02) Nucleated RBC Absolute Count (auto) 0.28 K/uL (0-0) Nucleated Red Blood Cells % 1.9 % Polychromasia 1+ Target Cells 1+ Anion Gap 7.0 mmol/L (3-11) Est Creatinine Clear Calc Drug Dose 15.2 ml/min Estimated GFR () 15.2 Estimated GFR (Non- 13.1 BUN/Creatinine Ratio 6.0 (10-20) Calcium Level 9.6 mg/dl (8.5-10.1) Total Bilirubin 0.6 mg/dl (0.2-1) Direct Bilirubin 0.3 mg/dl (0-0.2) Aspartate Amino Transf (AST/SGOT) 26 U/L (15-37) Alanine Aminotransferase (ALT/SGPT) 17 U/L (12-78) Alkaline Phosphatase 398 U/L (45-117) Total Protein 8.4 gm/dl (6.4-8.2) Albumin 2.5 gm/dl (3.4-5.0) Bedside Troponin I 0.170 ng/ml (0-0.045) Laboratory results reviewed by me Medications Administered Medications (Trade) Dose Ordered Sig/Amanda Route Start Time Stop Time Status Last Admin Dose Admin Morphine Sulfate (MoRPHine SULFATE INJ) 4 mg NOW STAT IV 11/18/16 21:54 11/18/16 21:56 DC 11/18/16 22:00 4 MG Ondansetron HCl (Zofran Inj) 4 mg NOW STAT IV 11/18/16 21:54 11/18/16 21:56 DC 11/18/16 22:00 4 MG ECG Indication: chest pain Rate (beats per minute): 98 Rhythm: normal sinus Findings: ST depression (precordium), left axis deviation Comparison ECG Date: 2016 Change: no significant change ED Course 2149: The patient was evaluated in room C8. A complete history and physical exam was performed. 2153: Zofran 4 mg IV, Morphine Sulfate 4 mg IV. 0: [facility] was paged. 2300: The patient decided that he would like to go home. Discussed the risks of going home with him. He finally agreed to stay in the hospital. 2330: The patient will be evaluated by Dr. Woodson, [facility]. Medical Decision Differential diagnosis: Etiologies such as cardiac ischemia, aortic dissection, pulmonary embolism, pneumonia, pneumothorax, musculoskeletal, infections, pericarditis, myocarditis, esophageal rupture, gastrointestinal, as well as others were entertained. Reexamination the patient is currently resting pain-free 0 out of 10 pain. Patient's troponin is 0.17 however he does have renal insufficiency and end- stage renal disease with a creatinine of 5 tonight and his prior troponin in August was 0.75. Patient will be admitted for further evaluation of his chest pain Impression Primary Impression: Substernal precordial chest pain Scribe Attestation The scribe's documentation has been prepared under my direction and personally reviewed by me in its entirety. I confirm that the note above accurately reflects all work, treatment, procedures, and medical decision making performed by me. Departure Information Dispostion Being Evaluated By Hospitalist Referrals Todd Azevedo M.D. (PCP) Patient Instructions My [facility]
[2016-11-18 22:01] LABS: HEMATOCRIT 39.9 % (42-52); MEAN CELL VOLUME 90.7 fL (80-100); MEAN CORPUSCULAR HEMOGLOBIN 28.9 pg (25-34); MEAN CORPUSCULAR HGB CONC 31.8 g/dl (32-36); MEAN PLATELET VOLUME 10.5 fL (7.4-10.4); PLATELET COUNT 437 K/uL (130-400); WHITE BLOOD COUNT 15.18 K/uL (4.8-10.8)
[2016-11-18] MEDS ORDERED: SEVE800T7 PO (22:06)
[2016-11-18] MEDS ORDERED: IMDSR30 PO (22:06)
[2016-11-18] MEDS ORDERED: VITA1TAB4 PO (22:06)
[2016-11-18] MEDS ORDERED: PRED-301 PO (22:06)
[2016-11-18] MEDS ORDERED: HYDR-5688 PO (22:06)
[2016-11-18] MEDS ORDERED: TPRSR/100 PO (22:06)
[2016-11-18] MEDS ORDERED: ASPI81TA28 PO (22:08)
--- NOTE | 2016-11-18 22:23 | DIAGNOSTIC IMAGING REPORT ---
CHEST ONE VIEW PORTABLE HISTORY: Atypical CHEST PAIN COMPARISON: Chest 09/11/2016. FINDINGS: The heart remains moderately enlarged. No pleural effusions. No pneumothorax. Mild central pulmonary vascular congestion without overt edema. This remains unchanged. Poststernotomy changes. Upper abdominal surgical clips. No new focal lung consolidations to suggest pneumonia. IMPRESSION: Cardiomegaly with mild central pulmonary vascular congestion. Electronically signed by: Smith Reed M.D. 11/18/2016 10:20 PM Dictated Date/Time: 11/18/2016 10:19 PM
[2016-11-18 22:26] LABS: POTASSIUM 3.8 mmol/L (3.5-5.1)
[2016-11-18 22:27] LABS: CALCIUM 9.6 mg/dl (8.5-10.1); CREATININE 4.8 mg/dl (0.60-1.40)
[2016-11-18 22:35] LABS: BASO % 0.3 %; BASO ABS # 0.04 K/uL (0-0.2); COMPLETE YES; EOS % 1.9 %; IG% 0.2 %; LYMPH % 56.3 %; LYMPH ABS # 8.55 K/uL (1.2-3.4); MONO % 14.8 %; NEUT % 26.5 %; POLYCHROMASIA 1+; TARGET CELLS 1+
[2016-11-19] MEDS ORDERED: ACETAMINOPHEN 325 MG TAB PO PRN (01:45)
[2016-11-19] MEDS ORDERED: NITROGLYCERIN 0.4 MG SL PER TAB CHARGE SL PRN (01:45)
[2016-11-19] MEDS ORDERED: ZOLPIDEM TARTRATE 5 MG TAB PO PRN (01:45)
[2016-11-19] MEDS ORDERED: MAGNESIUM HYDROXIDE SUSP 30 ML UDC PO PRN (01:45)
[2016-11-19] MEDS ORDERED: HYDROCODONE/ACETAMOPHEN 5/325MG TAB PO PRN (01:45)
[2016-11-19] MEDS ORDERED: POLYETHYLENE (MIRALAX) 17 GM PACK PO PRN (01:45)
[2016-11-19] MEDS ORDERED: ALUMINUM/MAGNESIUM/SIMETH (MAALOX MAX) 30 ML UDC PO PRN (01:45)
[2016-11-19] MEDS ORDERED: MoRPHine SULFATE 4 MG/ML 1 ML CARP\\VIAL ONE (02:56)
[2016-11-19] MEDS ORDERED: IV FLUIDS COMPLETED PRN (03:00)
[2016-11-19 03:12] VITALS: BP 112/61; PULSE 81; TEMP 37; O2SAT 94
--- NOTE | 2016-11-19 03:32 | History and Physical ---
History & Physical Date & Time of Service: Nov 19, 2016 at 03:31 Chief Complaint: Chest Pain Primary Care Physician: Todd Azevedo M.D. History of Present Illness Source: patient 51 y/o M with complex medical Hx including ESRD, CAD, CHF, recent Hx of shock liver following cholecystectomy, recent C Diff sepsis. Pt developed central CP described as a heavy feeling earlier in the evening. He then developed pleuritic L CP localized to an area over his lower L rib cage. He states that his initial pain was comparable to the pain he had during a previous NC. He denies fevers, significant SOB, a productive cough or associated nausea/vomiting , diaphoresis. He underwent dialysis the day prior to admission. Past Medical/Surgical History Medical Problems: (1) Acute respiratory failure Status: Resolved (2) CAD / NC (myocardial infarction) Status: Chronic (3) Syncope Status: Resolved 4) ESRD on dialysis 5) Atrial flutter 6) History of aneurysmal GI bleed 7) Chronic systolic CHF - EF 40% 8) PVD 9) Chronic anemia 10) HPL 11) HTN 12) Cholecystitis 13) Cirrhosis - states that he was diagnosed this summer and was being evaluated for a transplant following his gall bladder surgery - likely the result of shock liver and improving so that diagnosis is in question 14) C diff sepsis Surgical Problems: (1) History of renal transplant x 3 1970s, 1990s, 2009 - recent rejection/ failure 2016 Status: Chronic (2) Hx of CABG Status: Resolved 3 vessel 3) Cholecystectomy - cystostomy drain placed initially 4) Dialysis graft Family History FH: heart disease Social History Smoking Status: Never Smoker Drug Use: none Marital Status: Housing status: lives with family Occupational Status: employed, disabled Immunizations History of Influenza Vaccine: No Influenza Vaccine Date: May 03, 2008 History of Tetanus Vaccine?: Unknown Tetanus Immunization Date: Oct 06, 2000 History of Pneumococcal: No Pneumococcal Date: Oct 06, 2005 History of Hepatitis B Vaccine: Unknown Hepatitis Immunization Date: Oct 06, 2000 Multi-Drug Resistant Organisms History of MDRO: No Allergies Coded Allergies: POLLEN (Verified Allergy, Unknown, "HAYFEVER", 11/18/16) Diazoxide (Verified Adverse Reaction, Intermediate, ELEVATE BP;N&V, ) NSAIDs (Verified Adverse Reaction, Unknown, KIDNEY TRANSPLANT, 11/18/16) Home Medications Scheduled Aspirin (Aspirin Ec), 81 MG PO DAILY Atorvastatin (Atorvastatin Calcium), 20 MG PO HS Cinacalcet Hydrochloride (Sensipar), 30 MG PO QAM Clopidogrel Bisulfate (Clopidogrel), 75 MG PO DAILY Isosorbide Mononitrate (Isosorbide Mononitrate ER), 90 MG PO BID Metoprolol Succinate (Metoprolol Succinate ER), 100 MG PO BID Pantoprazole (Pantoprazole Sodium), 40 MG PO DAILY Prednisone (Prednisone), 5 MG PO DAILY Sevelamer Carbonate (Renvela), 1,600 MG PO TID Vitamin B Cmplx/Vitc/Folic Ac (Nephrocaps), 1 CAP PO DAILY Vitamin E (Vitamin E), 400 UNIT PO DAILY Scheduled PRN Hydrocodone/Acetaminophen 5MG/325MG ([place] 5MG/325MG), 1 TAB PO Q4 PRN for Pain Review of Systems Constitutional: No chills, No fever, No sweats Eyes: No eye pain, No worsening of vision ENT: No hearing loss, No nasal symptoms, No unusual epistaxis Respiratory: No cough, No sputum, No wheezing Cardiovascular: + chest pain, No PND, No orthopnea Abdomen: No nausea, No pain, No vomiting Musculoskeletal: No joint pain, No muscle pain Genitourinary - Male: + problem reported (does not make urine) Neurologic: No memory loss, No paralysis, No weakness Psychiatric: No depression symptoms Endocrine: No fatigue Hematologic / Lymphatic: No abnormal bleeding/bruising Integumentary: No rash Allergic / Immunologic: No environmental allergies Physical Exam Vital Signs Date Time Temp Pulse Resp B/P Pulse Ox O2 Delivery O2 Flow Rate FiO2 11/19/16 01:53 81 20 112/61 94 Room Air 11/19/16 01:01 85 20 94 11/19/16 00:31 84 15 96 11/19/16 00:01 88 19 94 11/18/16 22:52 87 18 103/64 93 Room Air 11/18/16 22:25 89 11/18/16 21:47 93 Room Air 11/18/16 21:42 37.0 56 18 135/82 99 Room Air 11/18/16 21:42 93 Room Air General Appearance: WD/WN, no apparent distress Head: normocephalic ENT: normal ENT inspection, pharynx normal Neck: supple, no JVD Respiratory/Chest: chest non-tender Cardiovascular: regular rate, rhythm, no edema, no gallop, no JVD, no murmur, normal peripheral pulses Abdomen/GI: normal bowel sounds, non tender, soft Back: normal inspection, no CVA tenderness Extremities/Musculoskelatal: + pertinent finding (L arm graft with bruit) Neurologic/Psych: pulmonologist intensivist II-XII nml as tested, no motor/sensory deficits, alert, normal mood/affect, normal reflexes, oriented x 3 Skin: normal color, warm/dry, no rash Diagnostics Laboratory Results Results Past 24 Hours Test 11/18/16 21:20 11/18/16 21:45 11/19/16 01:38 Range/Units White Blood Count 15.18 4.8-10.8 K/uL Red Blood Count 4.40 4.7-6.1 M/uL Hemoglobin 12.7 14.0-18.0 g/dL Hematocrit 39.9 42-52 % Mean Corpuscular Volume 90.7 80-100 fL Mean Corpuscular Hemoglobin 28.9 25-34 pg Mean Corpuscular Hemoglobin Concent 31.8 32-36 g/dl Platelet Count 437 130-400 K/uL Mean Platelet Volume 10.5 7.4-10.4 fL Neutrophils (%) (Auto) 26.5 % Lymphocytes (%) (Auto) 56.3 % Monocytes (%) (Auto) 14.8 % Eosinophils (%) (Auto) 1.9 % Basophils (%) (Auto) 0.3 % Neutrophils # (Auto) 4.03 1.4-6.5 K/uL Lymphocytes # (Auto) 8.55 1.2-3.4 K/uL Monocytes # (Auto) 2.24 0.11-0.59 K/uL Eosinophils # (Auto) 0.29 0-0.5 K/uL Basophils # (Auto) 0.04 0-0.2 K/uL RDW Standard Deviation 62.1 36.4-46.3 fL RDW Coefficient of Variation 19.1 11.5-14.5 % Immature Granulocyte % (Auto) 0.2 % Immature Granulocyte # (Auto) 0.03 0.00-0.02 K/uL Nucleated RBC Absolute Count (auto) 0.28 0-0 K/uL Nucleated Red Blood Cells % 1.9 % Polychromasia 1+ Target Cells 1+ Sodium Level 140 136-145 mmol/L Potassium Level 3.8 3.5-5.1 mmol/L Chloride Level 99 98-107 mmol/L Carbon Dioxide Level 34 21-32 mmol/L Anion Gap 7.0 3-11 mmol/L Blood Urea Nitrogen 29 7-18 mg/dl Creatinine 4.80 0.60-1.40 mg/dl Est Creatinine Clear Calc Drug Dose 15.2 ml/min Estimated GFR () 15.2 Estimated GFR (Non- 13.1 BUN/Creatinine Ratio 6.0 10-20 Random Glucose 78 70-99 mg/dl Calcium Level 9.6 8.5-10.1 mg/dl Total Bilirubin 0.6 0.2-1 mg/dl Direct Bilirubin 0.3 0-0.2 mg/dl Aspartate Amino Transf (AST/SGOT) 26 15-37 U/L Alanine Aminotransferase (ALT/SGPT) 17 12-78 U/L Alkaline Phosphatase 398 45-117 U/L Total Protein 8.4 6.4-8.2 gm/dl Albumin 2.5 3.4-5.0 gm/dl Bedside Troponin I 0.170 0-0.045 ng/ml EKG Sinus. LVH, incomplete R bundle - no acute changes Impression Assessment and Plan 51 y/o M with complex medical Hx including ESRD, CAD, CHF, recent Hx of shock liver following cholecystectomy, recent C Diff sepsis. Pt developed central CP described as a heavy feeling earlier in the evening. He then developed pleuritic L CP localized to an area over his lower L rib cage. He states that his initial pain was comparable to the pain he had during a previous NC. He denies fevers, significant SOB, a productive cough or associated nausea/vomiting , diaphoresis. He underwent dialysis the day prior to admission. 1) CP - resolved - continues to have rib pain but this is unlikely to be related - low suspicion for ACS at present - obs on telemetry - NTG or Morphine PRN - serial enzymes - consider AM D/C and treat for musculoskeletal source - cont ASA, B rubin, Statin, Imdur 2) ESRD - Completed dialysis 11/18 - will likely be D/Cd for next session - cont Se[place]lemir, Nephrocaps 3) CHF - euvolemic at present - Cont B rubin Full code - Heparin prophylaxis Total time for this admit including review of labs, meds, EKG, imaging, extensive records - discussion with ER MD and pt - 38 min Level of Care Telemetry Resuscitation Status FULL RESUSCITATION VTE Prophylaxis VTE Risk Assessment Done? Y/N: Yes Risk Level: Moderate Given or contraindicated: Unfractionated heparin SQ
[2016-11-19] MEDS ORDERED: HEPARIN IV BOLUS 5,000 UNIT in SYRINGE 0 ML IV ONE (06:00)
[2016-11-19] MEDS ORDERED: HEPARIN SOD 5000 UNIT/0.5 ML CARP SQ SCH (06:00)
[2016-11-19 06:08] LABS: INR 1.2 (0.9-1.1); PARTIAL THROMBOPLASTIN RATIO 1.4; PROTHROMBIN TIME (PATIENT) 12.7 SECONDS (9.0-12.0)
[2016-11-19] MEDS: HEPARIN 25,000 UNIT/500ML D5W 500 ML IV PRN (06:20)
[2016-11-19 06:36] LABS: HEMATOCRIT 39.6 % (42-52); MEAN CELL VOLUME 91.5 fL (80-100); MEAN CORPUSCULAR HEMOGLOBIN 29.6 pg (25-34); MEAN CORPUSCULAR HGB CONC 32.3 g/dl (32-36); MEAN PLATELET VOLUME 10.5 fL (7.4-10.4); PLATELET COUNT 442 K/uL (130-400); RED BLOOD COUNT 4.33 M/uL (4.7-6.1); WHITE BLOOD COUNT 13.67 K/uL (4.8-10.8)
[2016-11-19] MEDS ORDERED: METOPROLOL SUCC 50MG EXT REL TAB PO SCH (09:00)
[2016-11-19] MEDS: ASPIRIN 81 MG ECTAB PO SCH (09:27)
[2016-11-19] MEDS: CLOPIDOGREL BISULFATE 75 MG TAB PO SCH (09:27)
[2016-11-19] MEDS ORDERED: DOCUSATE SODIUM/SENNA 50/8.6MG TAB PO PRN (10:00)
[2016-11-19] MEDS: MoRPHine SULFATE 2 MG/ML CARP IV PRN ×3 (10:15→19:46)
[2016-11-19 12:00] VITALS: BP 139/84; PULSE 83; TEMP 36.7; O2SAT 96
[2016-11-19] MEDS ORDERED: SODIUM CHLORIDE 0.9% 1000ML 1,000 ML IV PRN (12:02)
--- NOTE | 2016-11-19 12:03 | Progress Note ---
Progress Note Date of Service Nov 19, 2016. Progress Note Patient seen and examined at bedside. Still has left-sided chest wall pain. Had mid-sternal heaviness radiating to jaw and bilateral arms last night, has not recurred since then. No sob, no abd pain. LUE AVF Admission EKG Normal sinus rhythm Possible Left atrial enlargement Left axis deviation Left ventricular hypertrophy with repolarization abnormality Marked ST abnormality, possible anterior subendocardial injury Abnormal ECG When compared with ECG of 11-SEP-2016 10:16, Anterior ST depression is more pronounced now Confirmed by KADEEM ZEPEDA ([id number]) on 11/19/2016 10:36:01 AM Vital Signs Date Time Temp Pulse Resp B/P Pulse Ox O2 Delivery O2 Flow Rate FiO2 11/19/16 08:00 Room Air 11/19/16 03:12 37.0 81 20 112/61 94 nad, aox3, anicteric s1 s2 rrr, no murmurs appreciated ctab no w/r/r abd soft nt/nd +BS no LE edema LUE AVF +t/+b 1. Chest pain - elevated troponins and trending up, cont to trend - EKG as above - awaiting 2 d echo - cardiology on board, tentatively scheduled for cath pending echo results - cont heparin gtt - cont asa/plavix, statin, metoprolol, imdur 2. [facility]DV-HD - MWF, last HD Wed - via LUE AVF - Consult Dr. Azevedo - s/p 2 failed LRKTx and 2 failed DDKTx - cont prednisone
[2016-11-19] MEDS ORDERED: IRON SUCROSE INJ 100 MG in SYRINGE 0 ML IV ONE (12:15)
[2016-11-19] MEDS ORDERED: HEPARIN SOD (PORCINE) 1000 UNIT/ML 10 ML VIAL IV ONE (12:15)
[2016-11-19] MEDS: NEPHROCAPS PO SCH (12:21)
[2016-11-19] MEDS: PANTOprazole SOD 40 MG TAB PO SCH (12:21)
[2016-11-19] MEDS: METOPROLOL SUCC 50MG EXT REL TAB PO SCH ×2 (12:22→20:34)
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
[2016-11-19 13:29] LABS: PARTIAL THROMBOPLASTIN RATIO 2.1
--- NOTE | 2016-11-19 15:05 | ECHOCARDIOGRAM REPORT ---
*NOTICE TO RECEIVING REPUBLICAN AGENCY This information is strictly Confidential and protected under [place] law. [place] law prohibits you from making any further disclosure of this information unless further disclosure is expressly permitted by the written consent of the person to whom it pertains or is authorized by law. A general authorization for the release of medical or other information is not sufficient for this purpose. Hospital accepts no responsibility if the information is made available to any other person, INCLUDING THE PATIENT. Interpretation Summary * Name: FOSTER RENE Study Date: 11/19/2016 01:30 PM BP: 112/61 mmHg * Patient Location: [facility] HR: 81 * : 1965 (M/d/yyyy) Gender: Male Height: 65 in * Age: 51 yrs Ethnicity: CA Weight: 128 lb * Ordering Physician: MD Augustin Espinal MD * Performed By: Risa Pike * * Reason For Study: AMI * BSA: 1.6 m2 * -- Conclusions -- * There is borderline concentric left ventricular hypertrophy. * Left ventricular systolic function is low normal. * Grade I diastolic dysfunction, (abnormal relaxation pattern). * There are regional wall motion abnormalities as specified. * The right ventricle is moderately dilated. * The right ventricular systolic function is reduced as assessed by tricuspid annular plane systolic excursion (TAPSE) (TAPSE <1.6 cm). * There is mild mitral annular calcification. * There is mild mitral regurgitation. * There is mild to moderate tricuspid regurgitation. * Right ventricular systolic pressure is elevated at 30-40mmHg. * Compared to an echocardiogram from 07/2016, there is minimal change Procedure Details * A complete two-dimensional transthoracic echocardiogram was performed (2D, M-mode, Doppler and color flow Doppler). * A contrast injection of Definity was performed to improve assessment of LV function. * Contrast was injected into an intravenous site in the left arm. * One vial of Definity ultrasound contrast was diluted in normal saline to a total volume of 10 ml. A total of '3' ml of solution was administered during imaging. * Lot # [id number] of Definity utilized for procedure. * Expiration date 11/10. * The attending nurse who injected the contrast agent was GIOVANA LUGO RN. Left Ventricle * The left ventricle is grossly normal size. * There is borderline concentric left ventricular hypertrophy. * Ejection Fraction = 50-55%. * Left ventricular systolic function is low normal. * Grade I diastolic dysfunction, (abnormal relaxation pattern). * The septum is severly hypokinetic. The anterior and portions of the inferior wall are mildly hypokinetic. * There are regional wall motion abnormalities as specified. Right Ventricle * The right ventricle is not well visualized. * The right ventricle is moderately dilated. * The right ventricular systolic function is reduced as assessed by tricuspid annular plane systolic excursion (TAPSE) (TAPSE <1.6 cm). Atria * The left atrial size is normal. * Right atrium not well visualized. Mitral Valve * The mitral valve leaflets appear thickened, but open well. * There is mild mitral annular calcification. * There is mild mitral regurgitation. Tricuspid Valve * The tricuspid valve is not well visualized, but is grossly normal. * There is mild to moderate tricuspid regurgitation. * Right ventricular systolic pressure is elevated at 30-40mmHg. Aortic Valve * Aortic valve sclerosis mild, without significant aortic valvular stenosis. * There is no significant aortic regurgitation. Pericardium/Pleural * There is no pericardial effusion. MMode 2D Measurements and Calculations IVSd 1.4 cm IVSs 2.2 cm LVIDd 4.4 cm LVIDs 3.1 cm LVPWd 1.2 cm LVPWs 1.7 cm IVS/LVPW 1.2 FS 28.6 % EDV(Teich) 87.0 ml ESV(Teich) 38.8 ml EF(Teich) 55.4 % EDV(cubed) 84.4 ml ESV(cubed) 30.7 ml EF(cubed) 63.7 % % IVS thick 56.3 % % LVPW thick 42.6 % LV mass(C)d 210.6 grams LV mass(C)dI 128.7 grams/m\S\2 LV mass(C)s 259.0 grams LV mass(C)sI 158.3 grams/m\S\2 CO(Teich) 3.9 l/min CI(Teich) 2.4 l/min/m\S\2 SV(Teich) 48.2 ml SI(Teich) 29.5 ml/m\S\2 CO(cubed) 4.3 l/min CI(cubed) 2.7 l/min/m\S\2 SV(cubed) 53.7 ml SI(cubed) 32.8 ml/m\S\2 EPSS 1.0 cm ACS 10 cm asc Aorta Diam 3.6 cm LVOT diam 1.7 cm LVOT area 2.4 cm\S\2 LVAd ap4 37.1 cm\S\2 LVLd ap4 9.0 cm EDV(MOD-sp4) 124.0 ml LVAs ap4 22.8 cm\S\2 LVLs ap4 7.5 cm ESV(MOD-sp4) 57.0 ml EF(MOD-sp4) 54.0 % LVAd ap2 41.1 cm\S\2 LVLd ap2 8.3 cm EDV(MOD-sp2) 172.0 ml LVAs ap2 27.5 cm\S\2 LVLs ap2 7.3 cm ESV(MOD-sp2) 83.0 ml EF(MOD-sp2) 51.7 % CO(MOD-sp4) 5.4 l/min CI(MOD-sp4) 3.3 l/min/m\S\2 SV(MOD-sp4) 67.0 ml SI(MOD-sp4) 40.9 ml/m\S\2 CO(MOD-sp2) 7.2 l/min CI(MOD-sp2) 4.4 l/min/m\S\2 SV(MOD-sp2) 89.0 ml SI(MOD-sp2) 54.4 ml/m\S\2 Doppler Measurements and Calculations MV E max parker 113.5 cm/sec MV A max parker 105.1 cm/sec MV E/A 1.1 MV dec time 0.32 sec Ao V2 max 215.0 cm/sec Ao max PG 18.5 mmHg Ao max PG (full) 13.8 mmHg JAN(V,A) 1.2 cm\S\2 JAN(V,D) 1.2 cm\S\2 LV V1 max PG 4.7 mmHg LV V1 max 108.1 cm/sec MR max parker 446.9 cm/sec MR max PG 79.9 mmHg PA V2 max 48.7 cm/sec PA max PG 0.95 mmHg TR max parker 271.5 cm/sec
[2016-11-19 16:00] VITALS: BP 133/82; PULSE 90; TEMP 37.2; O2SAT 94
[2016-11-19] MEDS: SEVELAMER HYDROCH 800 MG TAB PO SCH (16:45)
[2016-11-19 20:00] VITALS: BP 118/69; PULSE 86; TEMP 36.8; O2SAT 95
[2016-11-19] MEDS: ISOSORBIDE MONONITRATE 30 MG TABCR PO SCH (20:32)
[2016-11-19] MEDS: ATORVASTATIN 20 MG TAB PO SCH (20:33)
[2016-11-20] VITALS (26 sets, daily range): BP systolic 110–193; BP diastolic 65–107; PULSE 69–95; TEMP 36.4–37; O2SAT 92–96
[2016-11-20] MEDS: HEPARIN 25,000 UNIT/500ML D5W 500 ML IV PRN (06:07)
[2016-11-20] MEDS: MoRPHine SULFATE 2 MG/ML CARP IV PRN ×2 (06:44→21:52)
[2016-11-20] MEDS ORDERED: HEPARIN SOD (PORCINE) 1000 UNIT/ML 10 ML VIAL IV ONE (08:00)
[2016-11-20] MEDS: CLOPIDOGREL BISULFATE 75 MG TAB PO SCH (08:55)
[2016-11-20] MEDS: NEPHROCAPS PO SCH (08:55)
[2016-11-20] MEDS: ASPIRIN 81 MG ECTAB PO SCH (08:55)
[2016-11-20] MEDS: PANTOprazole SOD 40 MG TAB PO SCH (08:55)
[2016-11-20] MEDS: METOPROLOL SUCC 50MG EXT REL TAB PO SCH ×2 (08:55→20:30)
[2016-11-20] MEDS: SEVELAMER HYDROCH 800 MG TAB PO SCH ×3 (08:56→19:54)
--- NOTE | 2016-11-20 09:31 | CARDIOLOGY PROGRESS NOTE ---
DATE: 11/20/2016 DATE: 11/20/2016. SUBJECTIVE: The patient was seen in his telemetry unit room by me this morning. He has had no further anginal type chest discomfort since being in the Emergency Department. He continues to have a musculoskeletal left-sided discomfort. This is worse with deep inspiration or pressure applied to the area. He has had no further retrosternal discomfort radiating into his neck. That was his symptom which prompted this admission. No orthopnea or PND overnight. No dyspnea walking about the room. No lightheadedness. No palpitations. No leg pain. Chronic right upper abdominal discomfort. 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 No fevers or chills. No pulmonary complaints. CURRENT MEDICATIONS: Atorvastatin 20 mg at bedtime, isosorbide mononitrate 60 mg at bedtime, metoprolol succinate 50 mg b.i.d., Renagel 800 mg t.i.d., Senokot 1 tab b.i.d. p.r.n., aspirin 81 mg daily, clopidogrel 75 mg daily, pantoprazole 40 mg daily, prednisone 5 mg daily, Nephrocaps 1 daily, intravenous heparin. ALLERGIES AND ADVERSE DRUG REACTIONS: DIAZOXIDE AND NONSTEROIDAL ANTI-INFLAMMATORY DRUGS. Monitor history since admission to telemetry unit reveals sinus rhythm. No ventricular arrhythmias. There are artifacts present. PHYSICAL EXAMINATION: VITAL SIGNS: This morning with oral temperature 36.4, pulse 71, blood pressure 131/83, pulse oximetry room air 92%. GENERAL APPEARANCE: Shows her to be in no distress. NECK: Jugular venous pressure 8 cm. LUNGS: Normal respiratory effort. Clear. No rales or wheezes. HEART: Regular rate and rhythm. A 2/6 systolic murmur second right intercostal space. Aortic valve closing sound is present and preserved. A 2/6 holosystolic murmur left lower sternal border and apex. CHEST WALL: Mild left lateral chest wall tenderness. ABDOMEN: Soft. Normal bowel sounds. Mild right upper quadrant tenderness. EXTREMITIES: No pretibial edema. NEUROLOGIC: Alert and oriented x3. Motor grossly intact. PSYCHIATRIC: Affect is heard. DATA: Peak troponin I was yesterday morning at 7:44 a.m. It was 2.380. Repeat troponin I yesterday afternoon was 1.800. Labs from this morning are pending. Echocardiogram performed yesterday reveals borderline LVH. Septal hypokinesis. Mild anterior and inferior hypokinesis. Moderate tricuspid regurgitation. Aortic valve sclerosis. Mild mitral regurgitation. Compared to an echocardiogram July 2016 no significant interval change. ASSESSMENT: 1. Longstanding history of coronary artery disease. Status post CABG surgery in 2008 of left internal mammary artery graft to LAD and vein graft 2 branches of the ramus. Status post 2.5 x 18 mm drug-eluting stent to distal LAD distal to the HUMPHREYS anastomosis. Status post 3.5 x 20 mm drug-eluting stent left main extending into the left circumflex. Cardiac catheterization in 2014 with patent HUMPHREYS graft to LAD and patent vein graft to left circumflex marginal and distal posterior left ventricular branch. Procedure performed at [facility]. Repeat catheterization in May 2015 showed no new significant coronary disease. Question of a chronic occlusion to the vein graft to a first marginal artery. 2. Non-ST elevation myocardial infarction this admission. His electrocardiogram on admission revealed ST depressions in the anterior leads. T-wave inversions V1-V3. Compared to prior electrocardiograms, the ST segment depression was more prominent. It is compared to electrocardiograms performed in August and July 2016. Electrocardiogram was reviewed by me. 3. No evidence of congestive heart failure on exam. 4. Low normal overall left ventricular systolic function. 5. No arrhythmias. 6. Mild hypertension this morning. He is pending dialysis today. 7. Heart rate controlled. 8. Diffuse vascular disease. Prior cardiac catheterization in the right groin resulting in arteriovenous fistula. Diffuse calcifications of his abdominal aorta. RECOMMENDATIONS AND PLAN: 1. Discontinue heparin at this time. 2. Dialysis in his telemetry unit room this morning. 3. If he is stable with dialysis and has no anginal symptoms, proceed to dobutamine stress echocardiogram this afternoon. This would be to assess for evidence of significant myocardial ischemia. If there is evidence of significant myocardial ischemia, would then consider repeat cardiac catheterization. The patient is clearly at increased risk for cardiac catheterization secondary to his diffuse vascular disease. Would not perform a cardiac catheterization unless he had evidence of a large amount of myocardium at risk. If he did require cardiac catheterization, would recommend that this be performed at [facility] in [place] where he has had all of his catheterization and interventional procedures performed. NICA
[2016-11-20] MEDS ORDERED: ATROPINE SULFATE 0.1 MG/ML 5ML SYR ONE ×2 (10:10→10:31)
[2016-11-20] MEDS ORDERED: DOBUTamine HCL 12.5 MG/ML 20 ML VIAL ONE (10:10)
--- NOTE | 2016-11-20 10:10 | NEPHROLOGY PROGRESS NOTE ---
DATE: 11/20/2016 SUBJECTIVE: Mr. Segura says that he is feeling relatively well. He has had no further symptoms of oppressive chest discomfort or significant shortness of breath. However, he does have some discomfort in the lower left chest laterally. This is similar to the discomfort that he has had previously, particularly in association with gastric irritation and ulceration. He denies having any anorexia and denies having any true abdominal pain. He has had no nausea or vomiting. He has no diarrhea. He has no symptoms of uremia or volume overload. The decision was made not to do a cardiac catheterization at this time. His serum troponin has begun to drop. A stress test is scheduled for later today as is his routine hemodialysis treatment. OBJECTIVE: GENERAL: On physical exam when seen by me, Mr. Segura appeared relatively well. He still appears obviously chronically ill, however, with a sallow complexion. VITAL SIGNS: He is afebrile (36.4), his blood pressure 141/83, his pulse 71 and regular with no extrasystole, his respiratory rate is 16, and his pulse ox 92%-96% on room air. SKIN: Shows an intensely sallow complexion. He has multiple scars from prior surgical procedures, particularly bilateral lower quadrant scars from previous kidney transplants. There is a scar on his left leg from previous trauma. He has a midsternal scar from his cardiac surgery and he has a scar over his left wrist from the creation of an AV fistula, which is functional on the left forearm with multiple dialysis needle tract royal over the fistula. LYMPHATICS: Show no palpable adenopathy. He has no lymphangitis. HEAD: Grossly normal. EYES: Grossly normal. The ocular fundi were not examined. He has no conjunctival icterus. EARS, NOSE, MOUTH AND THROAT: Unremarkable, although his dentition is in very poor repair with multiple missing teeth. Oral mucous membranes are moist. NECK: Supple. There is no jugular venous distention at 90 degrees. There are no carotid bruits or thyromegaly. CHEST: Clear to auscultation. CARDIAC: Shows a regular rhythm. S1 and S2 are normal. He has a grade 2/6 systolic murmur at the base radiating toward the neck. ABDOMEN: Shows some minimal distention. It is soft and nontender. There is no obvious guarding or rebound. He has an obvious hernia in the right lower quadrant, which is difficult to completely reduce. His renal graft is barely palpable beneath the right lower quadrant hernia. There is no bruit over the graft. He has other abdominal scars from his prior splenectomy and gallbladder surgery. EXTREMITIES: Show no cyanosis, clubbing or peripheral edema. Peripheral pulses are diminished, but present. There is a bruit over the right femoral artery from a traumatic AV fistula related to a prior cardiac catheterization. He has the scars in the left thigh area from previous trauma. His left forearm AV fistula functions well. NEUROLOGIC: Shows no lateralizing changes. PERTINENT LABORATORY WORK: From today is pending. However, yesterday, his troponin had already started to come down to 1.800. ASSESSMENT: Mr. Segura seems to be stable at least from the standpoint of this most recent acute event. He will have a stress test later today. If it goes well, he will likely be able to be discharged from a cardiac standpoint. He has some left lower chest discomfort, but I doubt if that significant. However, it is similar to symptoms that he had in the past associated with ulcerations in his stomach. He was to have an H. pylori antigen done as an outpatient, but it would hopefully be able to be done here. He says that he does get a bit short of breath when he lies down and that his oxygen saturation dropped somewhat. It is hard to find a clear documentation of that in the record. Nonetheless, he has been suspected of having obstructive sleep apnea, but declined further workup. RECOMMENDATIONS: Hemodialysis today after his stress test. If cardiology feels it safe, he can be discharged from the renal perspective to continue with his routine medications and regular dialysis treatments as well as his renal diet. Hopefully, we will be able to get a stool sample today for Helicobacter pylori antigen. If positive, I can follow up with appropriate treatment as an outpatient.
[2016-11-20] MEDS ORDERED: METOPROLOL TARTRATE 1 MG/ML VIAL ONE (10:11)
[2016-11-20] MEDS ORDERED: PERFLUTREN LIPID MICROSPHERE (DEFINITY) IV ONE (10:53)
[2016-11-20] MEDS ORDERED: IRON SUCROSE INJ 100 MG in SYRINGE 0 ML IV ONE (11:00)
--- NOTE | 2016-11-20 12:52 | Progress Note ---
Subjective Date of Service: Nov 20, 2016. Subjective Pt evaluation today including: conversation w/ patient, physical exam, lab review, review of studies, review of inpatient medication list No further midsternal chest pain/heaviness. Still with chest wall pain. No sob. No abd pain Problem List Medical Problems: (1) Atrial flutter with rapid ventricular response Status: Acute (2) Chest pain Status: Acute (3) Chest pain Status: Acute (4) Chest pain Status: Acute (5) Elevated troponin Status: Acute (6) End stage renal disease Status: Acute (7) ESRD (end stage renal disease) Status: Acute (8) GI bleed Status: Acute (9) Hyperbilirubinemia Status: Acute (10) Lower GI bleeding Status: Acute (11) Peptic ulcer disease Status: Acute (12) Precordial chest pain Status: Acute (13) RUQ abdominal pain Status: Acute (14) Sepsis Status: Acute (15) Sepsis Status: Acute (16) Substernal precordial chest pain Status: Acute (17) Upper abdominal pain Status: Acute (18) Wrist pain, left Status: Acute Social History Problems: (1) H/O splenectomy Status: Acute Review of Systems All Other Systems: Reviewed and Negative Medications Acetaminophen (Tylenol Tab) 650 mg Q4H PRN PO; Start 11/19/16 at 01:45; Stop 12/19/16 at 01:44 Acetaminophen/ Hydrocodone Bitart ([place] 5/325 Tab) 1 tab Q4 PRN PO; Start at 01:45; Stop 12/03/16 at 01:44 Al Hydrox/Mg Hydrox/Simethicone (Maalox Max Susp) 15 ml Q4H PRN PO; Start 11/19 at 01:45; Stop 12/19/16 at 01:44 Aspirin (Ecotrin Tab) 81 mg DAILY PO Last administered on 11/20/16 08:55; Admin Dose 81 MG; Start 11/19/16 at 09:00; Stop 12/19/16 at 08:59 Atorvastatin Calcium (Lipitor Tab) 20 mg HS PO Last administered on 11/19/16 20 :33; Admin Dose 20 MG; Start 11/19/16 at 21:00; Stop 12/19/16 at 20:59 Clopidogrel Bisulfate (plAVix TAB) 75 mg DAILY PO Last administered on 08:55; Admin Dose 75 MG; Start 11/19/16 at 09:00; Stop 12/19/16 at 08:59 Isosorbide Mononitrate (Imdur Ext Rel Tab) 60 mg HS PO Last administered on 11/19 20:32; Admin Dose 60 MG; Start 11/19/16 at 21:00; Stop 12/19/16 at 20:59 Magnesium Hydroxide (Milk Of Magnesia Susp) 30 ml Q12H PRN PO; Start 11/19/16 at 01:45; Stop 12/19/16 at 01:44 Metoprolol Succinate (Toprol Xl Tab) 50 mg BID PO Last administered on 08:55; Admin Dose 50 MG; Start 11/19/16 at 21:00; Stop 12/19/16 at 20:59 Miscellaneous (Iv Fluids Completed) 1 ea PRN PRN N/A; Start 11/19/16 at 03:00; Stop 11/19/17 at 02:59 Miscellaneous Information (Order Awaiting Action) 1 ea QS N/A; Start 11/19/16 at 08:00; Stop 12/19/16 at 07:59 Morphine Sulfate (MoRPHine SULFATE INJ) 2 mg Q30M PRN IV Last administered on 06:44; Admin Dose 2 MG; Start 11/19/16 at 01:45; Stop 12/03/16 at 01:44 Morphine Sulfate (MoRPHine SULFATE INJ) 4 mg Q3H PRN IV Last administered on 14:01; Admin Dose 4 MG; Start 11/19/16 at 06:00; Stop 12/03/16 at 05:59 Nitroglycerin (Nitrostat Tab) 0.4 mg UD PRN SL; Start 11/19/16 at 01:45; Stop 12/19/16 at 01:44 Ondansetron HCl (Zofran Inj) 4 mg Q6H PRN IV Last administered on 11/20/16 14: 00; Admin Dose 4 MG; Start 11/19/16 at 01:45; Stop 12/19/16 at 01:44 Pantoprazole Sodium (Protonix Tab) 40 mg DAILY PO Last administered on 08:55; Admin Dose 40 MG; Start 11/19/16 at 09:00; Stop 12/19/16 at 08:59 Polyethylene (Miralax Powder Packet) 17 gm DAILY PRN PO; Start 11/19/16 at 01: 45; Stop 12/19/16 at 01:44 Prednisone (PredniSONE TAB) 5 mg DAILY PO Last administered on 11/20/16 08:55; Admin Dose 5 MG; Start 11/19/16 at 09:00; Stop 12/19/16 at 08:59 Senna/Docusate Sodium (Senokot S Tab) 1 tab BID PRN PO; Start 11/19/16 at 10:00 ; Stop 12/19/16 at 09:59 Sevelamer HCl (Renagel Tab) 800 mg TIDM PO Last administered on 11/20/16 11:35 ; Admin Dose 800 MG; Start 11/19/16 at 16:30; Stop 12/19/16 at 16:29 Vitamin B Complex/ Vit C/Folic Acid (Nephrocaps) 1 cap DAILY PO Last administered on 11/20/16 08:55; Admin Dose 1 CAP; Start 11/19/16 at 09:00; Stop 12/19/16 at 08:59 Zolpidem Tartrate (Ambien Tab) 5 mg HSZ PRN PO; Start 11/19/16 at 01:45; Stop 12/19/16 at 01:44 Objective Vital Signs Date Time Temp Pulse Resp B/P Pulse Ox O2 Delivery O2 Flow Rate FiO2 11/20/16 12:05 36.4 73 16 117/65 94 Room Air 11/20/16 08:17 36.4 71 16 141/83 92 Room Air 11/20/16 08:00 Room Air 11/20/16 04:00 93 Room Air 11/20/16 04:00 36.6 69 20 111/71 93 Room Air 11/20/16 00:01 36.4 75 20 110/73 96 Room Air 11/20/16 00:01 96 Room Air 11/19/16 20:00 36.8 86 18 118/69 95 Room Air 11/19/16 20:00 95 Room Air 11/19/16 16:00 Room Air 11/19/16 16:00 37.2 90 19 133/82 94 Room Air Physical Exam Comments: nad, aox3 anicteric s1 s2 rrr, no murmurs appreciated ctab no w/r/r abd soft nt/nd +BS no LE edema Laboratory Results Last 24 Hours Test 11/19/16 16:48 11/20/16 04:44 Troponin I 1.800 ng/ml * Name: FOSTER RENE Study Date: 11/19/2016 01:30 PM BP: 112/61 mmHg * Patient Location: 104 HR: 81 * : 1965 (M/d/yyyy) Gender: Male Height: 65 in * Age: 51 yrs Ethnicity: [place] Weight: 128 lb * Ordering Physician: MD Augustin Espinal MD * Performed By: Risa Pike * * Reason For Study: AMI * BSA: 1.6 m2 * -- Conclusions -- * There is borderline concentric left ventricular hypertrophy. * Left ventricular systolic function is low normal. * Grade I diastolic dysfunction, (abnormal relaxation pattern). * There are regional wall motion abnormalities as specified. * The right ventricle is moderately dilated. * The right ventricular systolic function is reduced as assessed by tricuspid annular plane systolic excursion (TAPSE) (TAPSE <1.6 cm). * There is mild mitral annular calcification. * There is mild mitral regurgitation. * There is mild to moderate tricuspid regurgitation. * Right ventricular systolic pressure is elevated at 30-40mmHg. * Compared to an echocardiogram from 07/2016, there is minimal change Assessment and Plan 1. NSTEMI - tni tending down, off heparin - possible cath pending stress test results - no further chest pains - further mgt per cardio - echo with no significant changes as above 2. ESRD-HD - MWF - HD today - BMD: cont renagel - anemia: hb at goal, no RANDY needed, defer to nephro - s/p 2 failed LRKT, s/p 1 failed DDKT - cont pred 5 3. CAB - s/p cabg, s/p stent - cont asa/plavix - cont statin - cont bblocker 4. HTN - cont bblocker - cont imdur 5. dvt ppx hsq
--- NOTE | 2016-11-20 13:55 | DOBUTAMINE ECHO ---
*NOTICE TO RECEIVING LIBERTARIAN AGENCY This information is strictly Confidential and protected under [place] law. [place] law prohibits you from making any further disclosure of this information unless further disclosure is expressly permitted by the written consent of the person to whom it pertains or is authorized by law. A general authorization for the release of medical or other information is not sufficient for this purpose. Hospital accepts no responsibility if the information is made available to any other person, INCLUDING THE PATIENT. Interpretation Summary * Name: FOSTER RENE Study Date: 11/20/2016 09:36 AM BP: 128/96 mmHg * Patient Location: .2E\S\E208\S\1 HR: 70 * : 1965 (M/d/yyyy) Gender: Male Height: 65 in * Age: 51 yrs Ethnicity: CA Weight: 136 lb * Ordering Physician: James Molina * Referring Physician: Self, Referred * Performed By: Kristen García RDCS * * Reason For Study: AMI * BSA: 1.7 m2 * -- Conclusions -- * Positive sub-maximal DSE with evidence of inducible ischemia in the inferior wall. Procedure Details * DOBUTAMINE ECHO, CPT#39573 * A contrast injection of Definity was performed to improve assessment of LV function. * Contrast was injected into an intravenous site in the right arm. * One vial of Definity ultrasound contrast was diluted in normal saline to a total volume of 10 ml. A total of '4' ml of solution was administered during imaging. * Lot # [id number] of Definity utilized for procedure. * Expiration date SEP 12. * The attending nurse who injected the contrast agent was MARCIA MONK RN. Left Ventricular Findings with Stress * Positive sub-maximal DSE with evidence of inducible ischemia in the inferior wall. Stress Parameters * Normal baseline electrocardiogram. * Patient developed a rate-related RBBB and 2mm downsloping ST depressions at peak heart rate. * The stress portion of this study was personally supervised by the undersigned interpreting physician. * Rest heart rate was '70' BPM. * Rest blood pressure was '128/96' * Maximum heart rate achieved was 133 bpm. * Maximum heart rate was 78 % of maximum age-predicted heart rate. * Maximum blood pressure was '199/65' * Maximum Dobutamine infusion rate was '50' mcg/kg/min. * A total of 2 mg of intravenous Atropine was used to supplement Dobutamine for heart rate response. * Dobutamine infusion was terminated due to end of protocol/maximum medication doses * A total of 5 mg of IV Metoprolol was administered to reverse Dobutamine-induced tachycardia. Left Ventricular Findings with Stress * Inability to meet target heart rate despite high-dose dobutamine and atropine. Positive EKG changes for ischemia Baseline echocardiogram demonstrates akinesis of the septum with hypokinesis of the inferior wall. Inferior wall motion worsens with peak dobutamine. Symptoms of mild, transient right shoulder pain were reported.
[2016-11-20] MEDS: ONDANSETRON INJ 2 MG/ML 2 ML VIAL IV PRN ×2 (14:00→19:55)
[2016-11-20] MEDS: MoRPHine SULFATE 4 MG/ML 1 ML CARP\\VIAL IV PRN (14:01)
[2016-11-20 14:42] LABS: HEMATOCRIT 38.8 % (42-52); MEAN CELL VOLUME 90.7 fL (80-100); MEAN PLATELET VOLUME 10.5 fL (7.4-10.4); PLATELET COUNT 462 K/uL (130-400); RED BLOOD COUNT 4.28 M/uL (4.7-6.1); WHITE BLOOD COUNT 14.53 K/uL (4.8-10.8)
[2016-11-20 14:52] LABS: PARTIAL THROMBOPLASTIN RATIO 1.3
[2016-11-20 15:32] LABS: BUN/CREATININE RATIO 7.4 (10-20); CALCIUM 9.4 mg/dl (8.5-10.1); CREATININE 8.6 mg/dl (0.60-1.40); MAGNESIUM 2.4 mg/dl (1.8-2.4); PHOSPHORUS 8.6 mg/dl (2.5-4.9); POTASSIUM 5.6 mmol/L (3.5-5.1)
[2016-11-20 15:53] LABS: ANISOCYTOSIS PRESENT; COMPLETE YES; EOSINOPHIL % 1.8 %; HOWELL-JOLLY BODIES 1+; HYPOCHROMIA PRESENT; LYMPH ABS # 5.91 K/uL (1.2-3.4); LYMPHOCYTE % 40.7 %; NEUTROPHILS % 52.2 %; PLASMA CELL 0.9 %; POLYCHROMASIA 1+; SMUDGE CELLS PRESENT; SPHEROCYTE OCCASIONAL
[2016-11-20] MEDS: ISOSORBIDE MONONITRATE 30 MG TABCR PO SCH (20:29)
[2016-11-20] MEDS: ATORVASTATIN 20 MG TAB PO SCH (20:30)
[2016-11-20] MEDS: HEPARIN SOD 5000 UNIT/0.5 ML CARP SQ SCH (20:34)
[2016-11-21] VITALS (7 sets, daily range): BP systolic 110–142; BP diastolic 68–83; PULSE 68–88; TEMP 36.8–37.1; O2SAT 93–94
[2016-11-21 07:16] LABS: HEMATOCRIT 38.9 % (42-52); MEAN CELL VOLUME 91.5 fL (80-100); MEAN CORPUSCULAR HEMOGLOBIN 28.7 pg (25-34); MEAN CORPUSCULAR HGB CONC 31.4 g/dl (32-36); MEAN PLATELET VOLUME 10.3 fL (7.4-10.4); PLATELET COUNT 447 K/uL (130-400); RED BLOOD COUNT 4.25 M/uL (4.7-6.1); WHITE BLOOD COUNT 12.71 K/uL (4.8-10.8)
[2016-11-21 07:28] LABS: PARTIAL THROMBOPLASTIN RATIO 1.4
[2016-11-21] MEDS: NEPHROCAPS PO SCH (07:31)
[2016-11-21] MEDS: ASPIRIN 81 MG ECTAB PO SCH (07:31)
[2016-11-21] MEDS: METOPROLOL SUCC 50MG EXT REL TAB PO SCH (07:31)
[2016-11-21] MEDS: CLOPIDOGREL BISULFATE 75 MG TAB PO SCH (07:31)
[2016-11-21] MEDS: PANTOprazole SOD 40 MG TAB PO SCH (07:32)
[2016-11-21] MEDS: SEVELAMER HYDROCH 800 MG TAB PO SCH ×2 (07:32→11:59)
[2016-11-21] MEDS: ONDANSETRON INJ 2 MG/ML 2 ML VIAL IV PRN (07:39)
[2016-11-21] MEDS: MoRPHine SULFATE 4 MG/ML 1 ML CARP\\VIAL IV PRN (07:40)
[2016-11-21] MEDS: HEPARIN SOD 5000 UNIT/0.5 ML CARP SQ SCH (09:00)
--- NOTE | 2016-11-21 11:39 | Discharge Summary ---
Discharge Summary Date of Service Nov 21, 2016. Discharge Summary Admission Date: Nov 19, 2016 at 01:42 Discharge Date: Nov 21, 2016 Discharge Disposition: Home Principal Diagnosis: NSTEMI Immunizations: Have You Had Influenza Vaccine: No Influenza Vaccine Date: May 03, 2008 History of Tetanus Vaccine?: Unknown Tetanus Immunization Date: Oct 06, 2000 History of Pneumococcal: No Pneumococcal Date: Oct 06, 2005 History of Hepatitis B Vaccine: Unknown Hepatitis Immunization Date: Oct 06, 2000 Procedures: Interpretation Summary * Name: FOSTER RENE Study Date: 11/20/2016 09:36 AM BP: 128/96 mmHg * Patient Location: .2E\S\E208\S\1 HR: 70 * : 1965 (M/d/yyyy) Gender: Male Height: 65 in * Age: 51 yrs Ethnicity: CA Weight: 136 lb * Ordering Physician: James Molina * Referring Physician: Self, Referred * Performed By: Kristen García RDCS * * Reason For Study: AMI * BSA: 1.7 m2 * -- Conclusions -- * Positive sub-maximal DSE with evidence of inducible ischemia in the inferior wall. Procedure Details * DOBUTAMINE ECHO, CPT#56481 * A contrast injection of Definity was performed to improve assessment of LV function. * Contrast was injected into an intravenous site in the right arm. * One vial of Definity ultrasound contrast was diluted in normal saline to a total volume of 10 ml. A total of '4' ml of solution was administered during imaging. * Lot # [id number] of Definity utilized for procedure. * Expiration date SEP 12. * The attending nurse who injected the contrast agent was MARCIA MONK RN. Left Ventricular Findings with Stress * Positive sub-maximal DSE with evidence of inducible ischemia in the inferior wall. Stress Parameters * Normal baseline electrocardiogram. * Patient developed a rate-related RBBB and 2mm downsloping ST depressions at peak heart rate. * The stress portion of this study was personally supervised by the undersigned interpreting physician. * Rest heart rate was '70' BPM. * Rest blood pressure was '128/96' * Maximum heart rate achieved was 133 bpm. * Maximum heart rate was 78 % of maximum age-predicted heart rate. * Maximum blood pressure was '199/65' * Maximum Dobutamine infusion rate was '50' mcg/kg/min. * A total of 2 mg of intravenous Atropine was used to supplement Dobutamine for heart rate response. * Dobutamine infusion was terminated due to end of protocol/maximum medication doses * A total of 5 mg of IV Metoprolol was administered to reverse Dobutamine- induced tachycardia. Medication Reconciliation New Medications: Menthol (Ricola) 24 Claudia/1 Box Lozg 1 CLAUDIA PO TID PRN for SORE THROAT for 5 Days Continued Medications: Aspirin (Aspirin Ec) 81 Mg Tab 81 MG PO DAILY Atorvastatin (Atorvastatin Calcium) 20 Mg Tab 20 MG PO HS, #90 Cinacalcet Hydrochloride (Sensipar) 30 Mg Tab 30 MG PO QAM, #90 Clopidogrel Bisulfate (Clopidogrel) 75 Mg Tab 75 MG PO DAILY, #90 Hydrocodone/Acetaminophen 5MG/325MG ([place] 5MG/325MG) Tab 1 TAB PO Q4 PRN for Pain, TAB PRN PAIN Isosorbide Mononitrate (Isosorbide Mononitrate ER) 30 Mg Tabcr 60 MG PO HS Metoprolol Succinate (Metoprolol Succinate ER) 100 Mg Tabcr 50 MG PO BID Pantoprazole (Pantoprazole Sodium) 40 Mg Tab 40 MG PO DAILY, #60 Prednisone (Prednisone) 5 Mg Tab 5 MG PO DAILY, TAB Sevelamer Carbonate (Renvela) 800 Mg Tab 1600 MG PO TID for 90 Days, #540 TAB Vitamin B Cmplx/Vitc/Folic Ac (Nephrocaps) Cap 1 CAP PO DAILY, CAP Vitamin E (Vitamin E) 400 Unit Tab 400 UNIT PO DAILY Hospital Course 51 y/o M with complex medical Hx including ESRD, CAD, CHF, recent Hx of shock liver following cholecystectomy, recent C Diff sepsis. Pt developed central CP described as a heavy feeling earlier in the evening. He then developed pleuritic L CP localized to an area over his lower L rib cage. He states that his initial pain was comparable to the pain he had during a previous OR. He denies fevers, significant SOB, a productive cough or associated nausea/vomiting , diaphoresis. He underwent dialysis the day prior to admission. Patient was treated as NSTEMI and was initially placed on heparin gtt. He had an echo which did not show significant changes from previous echo and so a stress test was performed. Stress test was positive but due to comorbidities and significant vasculopathy, it was decided he would be manage medically and conservatively at this point. HE will remain on asa/plavix, metoprolol and imdur. 1. NSTEMI - stress test as above - medical management with asa/plavix/statin - metoprolol and imdur 2. ESRD-HD - MWF - BMD: cont renagel - anemia: hb at goal, no RANDY needed, defer to nephro - s/p 2 failed LRKT, s/p 1 failed DDKT - cont pred 5 - resume outpatient HD 3. CAB - s/p cabg, s/p stent - cont asa/plavix - cont statin - cont bblocker 4. HTN - cont bblocker - cont imdur Total Time Spent: Greater than 30 minutes This includes examination of the patient, discharge planning, medication reconciliation, and communication with other providers. Discharge Instructions Please refer to the electronic Patient Visit Report (Discharge Instructions) for additional information.
--- NOTE | 2016-11-21 11:40 | CARDIOLOGY PROGRESS NOTE ---
DATE: 11/21/2016 SUBJECTIVE: Mr. Segura is resting comfortably in bed without complaints of angina pectoris or dyspnea. Does note musculoskeletal chest pain on the left. OBJECTIVE: VITAL SIGNS: Pressure is 110/70 with a regular pulse of 60. Respiratory rate is 18. The patient is afebrile at 36.9 degrees Celsius. Saturations 93% on room air. NECK: Supple with full carotid upstrokes. No obvious bruits. Jugular venous pressure is flat at 90 degrees. No thyromegaly. CARDIOVASCULAR: Reveals a regular rhythm with a 2/6 basal systolic ejection murmur. A 2/6 apical holosystolic murmur is also noted. CHEST: Reveals tenderness to palpation in the left anterior axillary line. ABDOMEN: Soft without bruits. EXTREMITIES: Reveal intact radial artery pulses bilaterally. There is no peripheral edema. DATA: CBC notes hemoglobin of 12.2, hematocrit 38.9, white count 12.7, platelet count 447,000. Electrolytes note sodium of 136, potassium 5.6, chloride 98, bicarb 27, BUN 62, creatinine 8.6, glucose 108. Troponin I level down to 1.8. Dobutamine stress echocardiogram performed yesterday noted inferior wall ischemia. EKG today notes sinus rhythm with left axis deviation, left ventricular hypertrophy with repolarization changes, and a prolonged QT interval. Anterior ST-T wave changes have improved compared with EKG on 11/18/2016. IMPRESSION AND PLAN: 1. Elevated troponin - the patient has stabilized on medical therapy including heparin which was discontinued yesterday. Although echocardiogram shows a small amount of inferior wall ischemia, the patient is now asymptomatic and doing well. He is high risk for any coronary procedures. The situation was discussed with Dr. Molina by telephone. It is felt that medical management is indicated at this time. Dr. Molina suggests that the patient would be taken to the cardiac catheterization lab only if having an evolving ST elevation myocardial infarction. Would suggest increasing metoprolol succinate back to 100 mg b.i.d. for discharge. 2. Coronary artery disease -- as described in Dr. Molina's note yesterday. 3. Medical management as noted above. 4. Hypertension -- controlled. 5. Hypercholesterolemia -- continue atorvastatin. 6. Peripheral vascular disease. 7. Chronic renal failure -- management per Dr. Azevedo. 8. Possible cirrhosis. 9. History of gastrointestinal bleeding. 10. Disposition -- stable for hospital discharge from a cardiac perspective. As above, would return metoprolol succinate dose to usual outpatient dosing (100 mg b.i.d.).
[2016-11-21] MEDS ORDERED: CPC PO (11:42)
[2016-11-21] MEDS ORDERED: COUGH DROP (SUGAR FREE) LOZ 24 LOZ/1 BOX PO STA (11:44)
--- NOTE | 2016-11-21 11:44 | Discharge Instructions ---
Discharge Instructions Date of Service Nov 21, 2016. Admission Reason for Admission: Substernal Precordial Chest Pain Discharge Discharge Diagnosis / Problem: non-LORRAINE myocardial infarction Discharge Goals Goal(s): Decrease discomfort, Increase independence, Improve disease control, Prevent Disease Progression Activity Recommendations Activity Limitations: resume your previous activity . Instructions / Follow-Up Instructions / Follow-Up Home Care: * Take your medications exactly as directed. Don't skip doses. * Remember that recovery after a heart attack takes time. Plan to rest for at lease 4-8 weeks while you recover. Then return to normal activity when your doctor says it's okay. * Ask your doctor about joining a heart rehabilitation program. * Tell your doctor if you are feeling depressed. Feelings of sadness are common after a heart attack, but it is important that you speak to someone if you are feeling overwhelmed by these feelings. * If you are having chest pain, call 911 for an ambulance. Do NOT drive yourself to the hospital. * Ask your family members to learn CPR. * Learn to take your own blood pressure and pulse. Keep a record of your results. Ask your doctor when you should seek emergency medical attention. He or she will tell you which blood pressure reading is dangerous. Lifestyle Changes: * Maintain a healthy weight. Get help to lose any extra pounds. * Cut back on salt. * Limit canned, dried, packaged, and fast foods. * Don't add salt to your food. * Season foods with herbs instead of salt when you cook. * Break the smoking habit. Enroll in a stop-smoking program to improve your chances of success. * Limit fatty foods. * Check your lipid levels regularly. (Your doctor can show you how to do this.) * Build up your activity according to your doctor's recommendation. * Ask your doctor when it's okay to resume sexual activity. * Tell your doctor about any erectile dysfunction (ED) medication you are taking. Some ED medications are not safe if you take certain heart medications. * Try to manage stress. Follow Up: It is important for you to keep your follow up appointments with your medical provider. Current Hospital Diet Patient's current hospital diet: AHA Diet (Heart Healthy) Discharge Diet Recommended Diet: AHA Diet (Heart Healthy), Renal Diet Pending Studies Studies pending at discharge: no Medical Emergencies . Who to Call and When: Medical Emergencies: If at any time you feel your situation is an emergency, please call 911 immediately. Call 911 immediately or go to your nearest Emergency Room if you experience any of the following: Warning Signs and Symptoms of a Heart Attack * Chest pain that is not relieved by medication * Shortness of breath . Non-Emergent Contact Non-Emergency issues call your: Primary Care Provider, Weight Trainer, Attic Fans Mechanic . . "Provider Documentation" section prepared by Slime Malin. . AMI Core Measures Reason no ASA as I/P: Treatment provided - N/A Reason no ASA at D/C: Treatment provided - N/A Reason no statin as I/P: Treatment provided - N/A Reason no statin at D/C: Treatment provided - N/A VTE Core Measure Inpt VTE Proph given/why not?: Unfractionated heparin SQ
[2016-11-21] MEDS ORDERED: COUGH DROP (SUGAR FREE) LOZ 24 LOZ/1 BOX PO PRN (11:45)
[2016-12-13] MEDS ORDERED: IMDSR60 PO (11:26)
[2017-06-24] MEDS ORDERED: PANT40TA PO (12:41)
== END 2016-11-21 16:55 | disposition home or self-care (01) ==
LOC: ENRESERVDT → ENRESERVTM → EDBD 21:38 → C.EDC 21:39 → C.MSICU 11-19 01:42 → C.2E 11-20 06:09
PROVIDERS: ADMIT Internal Medicine; ATTEND Internal Medicine
DX: I21.4 Non-ST elevation (NSTEMI) myocardial infarction (principal); R79.89 Other specified abnormal findings of blood chemistry; I25.10 Atherosclerotic heart disease of native coronary artery without angina pectoris; E78.00 Pure hypercholesterolemia, unspecified; I73.9 Peripheral vascular disease, unspecified; I50.22 Chronic systolic (congestive) heart failure; I25.5 Ischemic cardiomyopathy; I12.0 Hypertensive chronic kidney disease with stage 5 chronic kidney disease or end stage renal disease; N18.6 End stage renal disease; I25.2 Old myocardial infarction; Z99.2 Dependence on renal dialysis; Z79.82 Long term (current) use of aspirin; Z79.52 Long term (current) use of systemic steroids; Z94.0 Kidney transplant status; Z98.61 Coronary angioplasty status; Z95.1 Presence of aortocoronary bypass graft; Z87.891 Personal history of nicotine dependence; Z90.81 Acquired absence of spleen; Z90.49 Acquired absence of other specified parts of digestive tract

== ENCOUNTER 2016-12-11 05:11 | Inpatient (IN) | payer OTHER ==
[~2016-12-11] VITALS: Ht 167.6 cm; Wt 59.8 kg
[2016-12-11] VITALS (46 sets, daily range): BP systolic 123–165; BP diastolic 65–96; PULSE 75–94; TEMP 36.5–36.8; O2SAT 92–99; Ht 167.6 cm; Wt 59.8 kg
[~2016-12-11 05:11] MED LIST changes: +CPC PO; +HYDR-5688 PO; +IMDSR30 PO; -OXYC-609 PO; +PRED-301 PO; -PSYL48.59 PO; +SEVE800T7 PO; +TPRSR/100 PO; +VITA1TAB4 PO; -VNCS125 PO
[2016-12-11] MEDS ORDERED: MoRPHine SULFATE 4 MG/ML 1 ML CARP\\VIAL IV STA (05:25)
[2016-12-11] MEDS ORDERED: ONDANSETRON INJ 2 MG/ML 2 ML VIAL IV STA (05:25)
[2016-12-11] MEDS ORDERED: NITROGLYCERIN/D5W 100 MCG/ML 250 ML IV STA (05:28)
--- NOTE | 2016-12-11 05:33 | EMERGENCY ROOM VISIT NOTE ---
History Report prepared by Belkisiblazaro: Nawaf De Luna Under the Supervision of: Dr. Constantine Fuller D.O. First contact with patient: 05:15 Chief Complaint: CHEST PAIN Stated Complaint: CHEST PAIN, History of Present Illness The patient is a 51 year old male who presents to the Emergency Room with complaints of persistent chest pain that he woke up with at 0415 this morning. The patient has pain under his arm pits and in his neck as well. The patient is also feeling short of breath. 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 The pain is currently rated 8/10 in severity, and was rated 4/ 10 when he woke up. The pain does not radiate to the back. The patient is scheduled to have dialysis later this morning. He was admitted last month for chest pain and did not have a catheterization. He is s/p CABG. Source of History: patient Onset: 0415 this morning Position: chest Symptom Intensity: up to 8/10 Timing: other (persistent) Associated Symptoms: + SOB, No back pain Review of Systems See HPI for pertinent positives and negatives. A total of ten systems were reviewed and were otherwise negative. Past Medical & Surgical Medical Problems: (1) Abdominal pain (2) Acute H. pylori gastric ulcer (3) Acute respiratory failure (4) Anemia (5) Atrial flutter (6) Bacteremia (7) C. difficile colitis (8) CAD (coronary artery disease) (9) Chronic systolic CHF (congestive heart failure) (10) End-stage renal disease on hemodialysis (11) ESRD (end stage renal disease) on dialysis (12) Fever (13) Gastric mass (14) H. pylori infection (15) HTN (hypertension) (16) Immunosuppression (17) Intractable abdominal pain (18) Leukocytosis (19) Liver cirrhosis (20) DE (myocardial infarction) (21) Postoperative wound infection (22) Secondary hyperparathyroidism of renal origin (23) SIRS (systemic inflammatory response syndrome) (24) Syncope Surgical Problems: (1) History of renal transplant (2) History of renal transplant (3) Hx of CABG Family History FH: heart disease Social History Smoking Status: Never Smoker Alcohol Use: none Drug Use: none Marital Status: Housing Status: lives with significant other Occupation Status: employed, disabled Current/Historical Medications Scheduled Aspirin (Aspirin Ec), 81 MG PO DAILY Atorvastatin (Atorvastatin Calcium), 20 MG PO HS Cinacalcet Hydrochloride (Sensipar), 30 MG PO QAM Clopidogrel Bisulfate (Clopidogrel), 75 MG PO DAILY Isosorbide Mononitrate (Isosorbide Mononitrate ER), 60 MG PO HS Metoprolol Succinate (Metoprolol Succinate ER), 50 MG PO BID Pantoprazole (Pantoprazole Sodium), 40 MG PO DAILY Prednisone (Prednisone), 5 MG PO DAILY Sevelamer Carbonate (Renvela), 1,600 MG PO TID Vitamin B Cmplx/Vitc/Folic Ac (Nephrocaps), 1 CAP PO DAILY Vitamin E (Vitamin E), 400 UNIT PO DAILY Scheduled PRN Hydrocodone/Acetaminophen 5MG/325MG ([place] 5MG/325MG), 1 TAB PO Q4 PRN for Pain Menthol (Ricola), 1 KRISTI PO TID PRN for SORE THROAT Allergies Coded Allergies: POLLEN (Verified Allergy, Unknown, "HAYFEVER", 11/18/16) Diazoxide (Verified Adverse Reaction, Intermediate, ELEVATE BP;N&V, ) NSAIDs (Verified Adverse Reaction, Unknown, KIDNEY TRANSPLANT, 11/18/16) Physical Exam Vital Signs Date Time Temp Pulse Resp B/P Pulse Ox O2 Delivery O2 Flow Rate FiO2 12/11/16 05:57 83 93 12/11/16 05:56 173/91 12/11/16 05:52 84 26 156/98 98 Room Air 12/11/16 05:52 85 19 95 12/11/16 05:42 170/96 12/11/16 05:41 86 19 97 12/11/16 05:31 164/108 12/11/16 05:28 161/98 12/11/16 05:23 85 12/11/16 05:23 Room Air 12/11/16 05:21 93 Room Air 12/11/16 05:21 162/90 12/11/16 05:15 37.0 87 22 162/90 93 Room Air Physical Exam GENERAL: Awake, alert, well-appearing, in no distress HENT: Normocephalic, atraumatic. Oropharynx unremarkable. EYES: Normal conjunctiva. Sclera non-icteric. NECK: Supple. No nuchal rigidity. FROM. No JVD. RESPIRATORY: Clear to auscultation. CARDIAC: Regular rate, normal rhythm. Extremities warm and well perfused. Pulses equal. ABDOMEN: Soft, non-distended. No tenderness to palpation. No rebound or guarding. No masses. RECTAL: Deferred. MUSCULOSKELETAL: Chest examination reveals no tenderness. The back is symmetrical on inspection without obvious abnormality. There is no CVA tenderness to palpation. No joint edema. AV dialysis fistula left upper extremity. LOWER EXTREMITIES: Calves are equal size bilaterally and non-tender. No edema. No discoloration. NEURO: Normal sensorium. No sensory or motor deficits noted. SKIN: No rash or jaundice noted. Medical Decision & Procedures ER Provider Diagnostic Interpretation: X-ray: Per my interpretation. Chest One View Portable: Bypass wires. Cardiomegaly. No pneumothorax. Laboratory Results 12/11/16 05:25 Red Blood Count 4.65, Mean Corpuscular Volume 89.9, Mean Corpuscular Hemoglobin 29.5, Mean Corpuscular Hemoglobin Concent 32.8, Mean Platelet Volume 10.7 Test 12/11/16 05:25 12/11/16 05:45 White Blood Count 17.22 K/uL (4.8-10.8) Red Blood Count 4.65 M/uL (4.7-6.1) Hemoglobin 13.7 g/dL (14.0-18.0) Hematocrit 41.8 % (42-52) Mean Corpuscular Volume 89.9 fL (80-100) Mean Corpuscular Hemoglobin 29.5 pg (25-34) Mean Corpuscular Hemoglobin Concent 32.8 g/dl (32-36) Platelet Count 403 K/uL (130-400) Mean Platelet Volume 10.7 fL (7.4-10.4) RDW Standard Deviation 62.0 fL (36.4-46.3) RDW Coefficient of Variation 19.1 % (11.5-14.5) Bedside Troponin I 0.130 ng/ml (0-0.045) Laboratory results reviewed by me Medications Administered Medications (Trade) Dose Ordered Sig/Amanda Route Start Time Stop Time Status Last Admin Dose Admin Morphine Sulfate (MoRPHine SULFATE INJ) 4 mg NOW STAT IV 12/11/16 05:25 12/11/16 05:26 DC 12/11/16 05:31 4 MG Ondansetron HCl 4 mg 4 mg NOW STAT IV 12/11/16 05:25 12/11/16 05:26 DC 12/11/16 05:31 4 MG Nitroglycerin/ Dextrose (Nitroglycerin/ D5w 100 Mcg/Ml) 250 ml @ 0 mls/hr Q0M STAT IV 12/11/16 05:28 12/11/16 05:29 DC 12/11/16 05:43 3 MLS/HR ECG Indication: chest pain Rate (beats per minute): 84 Rhythm: sinus rhythm Findings: ST depression (V1, V2, V5, V6), other (normal axis, normal intervals , LVH) Comparison ECG Date: 11/18/16 Change: no significant change ED Course 0520: The patient was evaluated in room A10. A complete history and physical exam was performed. 0525: Zofran 4 mg IV, Morphine Sulfate 4 mg IV. 0528: Nitroglycerin / Dextrose 250 ml @ 0 mls/hr. 0550: The patient's pain is down to 2/10. X-ray is being obtained now. 0600: The patient will be evaluated by the [facility]. 0610: Reassessed the patient. He is feeling much better. Currently on Nitroglycerin. Medical Decision Differential diagnosis: Etiologies such as cardiac ischemia, aortic dissection, pulmonary embolism, pneumonia, pneumothorax, musculoskeletal, infections, pericarditis, myocarditis, esophageal rupture, gastrointestinal, as well as others were entertained. Consults Time Called: 05 Consulting Physician: [facility]. Returned Call: 0600 Impression Primary Impression: Unstable angina Additional Impression: Elevated troponin Critical Care I have personally spent greater than 30 minutes of critical care time in the direct management of this patient. This includes bedside care, interpretation of diagnostic studies, and testing, discussion with consultants, patient, and family members, and other required patient management activities. This 30 minutes is in excess of all separately billable procedures. Scribe Attestation The scribe's documentation has been prepared under my direction and personally reviewed by me in its entirety. I confirm that the note above accurately reflects all work, treatment, procedures, and medical decision making performed by me. Departure Information Dispostion Being Evaluated By Hospitalist Referrals Todd Azevedo M.D. (PCP) Patient Instructions My [facility] Problem Qualifiers
[2016-12-11 05:39] LABS: HEMATOCRIT 41.8 % (42-52); MEAN CELL VOLUME 89.9 fL (80-100); MEAN CORPUSCULAR HEMOGLOBIN 29.5 pg (25-34); MEAN CORPUSCULAR HGB CONC 32.8 g/dl (32-36); MEAN PLATELET VOLUME 10.7 fL (7.4-10.4); PLATELET COUNT 403 K/uL (130-400); RED BLOOD COUNT 4.65 M/uL (4.7-6.1); WHITE BLOOD COUNT 17.22 K/uL (4.8-10.8)
[2016-12-11] MEDS ORDERED: NTRGSL/4 UT (06:19)
[2016-12-11 06:22] LABS: BUN/CREATININE RATIO 6.1 (10-20); CALCIUM 9.1 mg/dl (8.5-10.1); CREATININE 7.6 mg/dl (0.60-1.40)
[2016-12-11] MEDS ORDERED: OXYC1TAB3 PO (06:23)
[2016-12-11] MEDS ORDERED: NITROGLYCERIN/D5W 100 MCG/ML 250 ML IV PRN (06:41)
[2016-12-11] MEDS ORDERED: ACETAMINOPHEN 325 MG TAB PO PRN (06:45)
[2016-12-11] MEDS ORDERED: COUGH DROP (SUGAR FREE) LOZ 24 LOZ/1 BOX PO PRN (06:45)
[2016-12-11] MEDS ORDERED: OXYCODONE HCL IR 5 MG TAB (IMMEDIATE RELEASE) PO PRN (06:45)
--- NOTE | 2016-12-11 07:03 | History and Physical ---
History & Physical Date & Time of Service: December 11, 2016 at 06:46 Chief Complaint: Chest Pain, Primary Care Physician: Todd Azevedo M.D. History of Present Illness Source: patient, partner The patient is a 51-year-old male who presents emergency department with complaint of chest, bilateral axillary and neck pain accompanied by shortness of breath since he woke up at 4:15 this a.m. He took 3 sublingual nitroglycerin without relief and a full dose of aspirin prior to arrival. He reports his pain was rated as 4/10 when he woke up, and upon arrival to the ED had increased 8/10. He was given morphine IV in the emergency department, followed by institution of a nitroglycerin drip, and he now reports his pain is negligible and his breathing has now normalized. He does have end-stage renal disease and is due for dialysis today. His most recent admission was from November 19 to November 21 for chest pain and was seen by cardiology at that time. He reports during that admission that his isosorbide mononitrate extended release was decreased from 60 mg twice a day to 60 mg at bedtime. Past Medical/Surgical History Medical Problems: (1) Acute respiratory failure Status: Resolved (2) CAD (coronary artery disease) Status: Chronic (3) Chronic systolic CHF (congestive heart failure) Status: Chronic (4) End-stage renal disease on hemodialysis Status: Chronic (5) HTN (hypertension) Status: Chronic (6) Liver cirrhosis Status: Chronic (7) OR (myocardial infarction) Status: Chronic (8) Syncope Status: Resolved Surgical Problems: (1) History of renal transplant Status: Chronic (2) Hx of CABG Status: Resolved Family History FH: heart disease Social History Smoking Status: Never Smoker Smokeless Tobacco Use: No Alcohol Use: none Drug Use: none Marital Status: Housing status: lives with family Occupational Status: employed, disabled Immunizations History of Influenza Vaccine: No Influenza Vaccine Date: May 03, 2008 History of Tetanus Vaccine?: Unknown Tetanus Immunization Date: Oct 06, 2000 History of Pneumococcal: No Pneumococcal Date: Oct 06, 2005 History of Hepatitis B Vaccine: Unknown Hepatitis Immunization Date: Oct 06, 2000 Multi-Drug Resistant Organisms History of MDRO: No Allergies Coded Allergies: POLLEN (Verified Allergy, Unknown, "HAYFEVER", 11/18/16) Diazoxide (Verified Adverse Reaction, Intermediate, ELEVATE BP;N&V, ) NSAIDs (Verified Adverse Reaction, Unknown, KIDNEY TRANSPLANT, 11/18/16) Home Medications Scheduled Aspirin (Aspirin Ec), 81 MG PO DAILY Atorvastatin (Atorvastatin Calcium), 20 MG PO HS Cinacalcet Hydrochloride (Sensipar), 30 MG PO QAM Clopidogrel Bisulfate (Clopidogrel), 75 MG PO DAILY Isosorbide Mononitrate (Isosorbide Mononitrate ER), 60 MG PO HS Metoprolol Succinate (Metoprolol Succinate ER), 50 MG PO BID Nitroglycerin (Nitrostat), 0.4 MG UT PRN Pantoprazole (Pantoprazole Sodium), 40 MG PO DAILY Prednisone (Prednisone), 5 MG PO DAILY Sevelamer Carbonate (Renvela), 1,600 MG PO TID Vitamin B Cmplx/Vitc/Folic Ac (Nephrocaps), 1 CAP PO DAILY Vitamin E (Vitamin E), 400 UNIT PO DAILY Scheduled PRN Menthol (Ricola), 1 KRISTI PO TID PRN for SORE THROAT Oxycodone Ir (Roxicodone Ir), 5 MG PO Q4H PRN for Severe Pain Review of Systems The patient denies cough, lower extremity swelling, vision change, hearing change, sore throat, fevers, chills, sweats, weight change, fatigue, nausea, vomiting, abdominal pain, pelvic pain, blood in urine or stool, dysuria, urinary frequency or urgency, lightheadedness, dizziness, headache, memory loss , rash, abnormal bruising or bleeding, imbalance, focal or generalized weakness , numbness or tingling in arms or legs, arthralgias or myalgias, back or neck pain, night sweats, or allergy symptoms. The review of systems is otherwise negative other than for that already noted above, and at least 10 systems have been reviewed. Physical Exam Vital Signs Date Time Temp Pulse Resp B/P Pulse Ox O2 Delivery O2 Flow Rate FiO2 12/11/16 06:36 88 20 150/87 93 12/11/16 06:31 89 14 147/86 96 12/11/16 06:26 91 16 153/88 91 12/11/16 06:21 89 23 162/88 91 12/11/16 06:16 87 22 158/88 92 12/11/16 06:11 162/86 12/11/16 06:07 87 17 12/11/16 06:02 89 22 94 12/11/16 05:57 83 93 12/11/16 05:56 173/91 12/11/16 05:52 84 26 156/98 98 Room Air 12/11/16 05:52 85 19 95 12/11/16 05:42 170/96 12/11/16 05:41 86 19 97 12/11/16 05:31 164/108 12/11/16 05:28 161/98 12/11/16 05:23 85 12/11/16 05:23 Room Air 12/11/16 05:21 93 Room Air 12/11/16 05:21 162/90 12/11/16 05:15 37.0 87 22 162/90 93 Room Air The patient is awake, well-developed and adequately nourished, alert and oriented 3, normocephalic and atraumatic, lying in bed and no longer in acute distress after morphine IV and nitroglycerin drip. HEENT--PERRL, EOMI, mucous membranes and oropharynx normal. Neck--supple, no JVD or bruits, thyroid normal, trachea midline, no adenopathy. Heart--normal S1 and S2, no extra beats, no murmurs, rubs or gallops. Lungs--clear bilaterally with good air movement, no respiratory distress, no accessory muscle use. Abdomen--normal bowel sounds and soft, nontender and nondistended, no hernias or masses, no organomegaly. Extremities--no cyanosis, clubbing or edema. There are decreased distal pulses b /l. Dermatologic--normal skin turgor, normal color, warm and dry, no abnormal lymph nodes, no rash. Neurologic--cranial nerves II through XII grossly intact, motor and sensory examination normal. Rheumatologic--normal range of motion, nontender, muscles and joints. Psychiatric--normal affect. Diagnostics Laboratory Results Results Past 24 Hours Test 12/11/16 05:25 12/11/16 05:45 Range/Units White Blood Count 17.22 4.8-10.8 K/uL Red Blood Count 4.65 4.7-6.1 M/uL Hemoglobin 13.7 14.0-18.0 g/dL Hematocrit 41.8 42-52 % Mean Corpuscular Volume 89.9 80-100 fL Mean Corpuscular Hemoglobin 29.5 25-34 pg Mean Corpuscular Hemoglobin Concent 32.8 32-36 g/dl Platelet Count 403 130-400 K/uL Mean Platelet Volume 10.7 7.4-10.4 fL RDW Standard Deviation 62.0 36.4-46.3 fL RDW Coefficient of Variation 19.1 11.5-14.5 % Sodium Level 140 136-145 mmol/L Potassium Level 5.0 3.5-5.1 mmol/L Chloride Level 98 98-107 mmol/L Carbon Dioxide Level 32 21-32 mmol/L Anion Gap 10.0 3-11 mmol/L Blood Urea Nitrogen 48 7-18 mg/dl Creatinine 7.60 0.60-1.40 mg/dl Est Creatinine Clear Calc Drug Dose 10.0 ml/min Estimated GFR () 8.7 Estimated GFR (Non- 7.5 BUN/Creatinine Ratio 6.1 10-20 Random Glucose 96 70-99 mg/dl Calcium Level 9.1 8.5-10.1 mg/dl Total Bilirubin 0.6 0.2-1 mg/dl Direct Bilirubin 0.2 0-0.2 mg/dl Aspartate Amino Transf (AST/SGOT) 21 15-37 U/L Alanine Aminotransferase (ALT/SGPT) 21 12-78 U/L Alkaline Phosphatase 377 45-117 U/L Total Protein 8.2 6.4-8.2 gm/dl Albumin 2.7 3.4-5.0 gm/dl Bedside Troponin I 0.130 0-0.045 ng/ml EKG EKG shows normal sinus rhythm at [address] depressions in leads 1 and aVL V5 and V6. Compared to EKG of November 18 ST depressions a more significant and had resolved on EKG of November 20. Impression Assessment and Plan Unstable angina/ACS--the patient has been started on nitroglycerin in the ED, with resolution of his symptoms. We'll repeat his EKG upon arrival in the ICU. He'll be admitted to the ICU on a nitroglycerin drip. We'll continue enteric coated aspirin 81 mg by mouth daily, clopidogrel 75 mg by mouth daily, isosorbide mononitrate ER 60 mg at bedtime and metoprolol succinate ER 50 mg by mouth twice a day. We'll consult cardiology, he is been seen by Dr. Molina, Dr. Espinal and Dr. Oliver in the recent past. End-stage renal disease on hemodialysis--we'll consult his vending machine coin collector Dr. Azevedo, as he is due for dialysis today. We'll continue Renvela 1600 mg by mouth 3 times a day, Sensipar 30 mg by mouth every morning, and we'll increase prednisone from 5-10 mg by mouth daily. Hypercholesterolemia--continue atorvastatin 20 mg by mouth at bedtime. GERD--continue pantoprazole 40 mg by mouth daily. Level of Care Critical Care Advanced Directives Existing Advance Directive: No Existing Living Will: No Existing Power of Franchise Development Manager: No Resuscitation Status FULL RESUSCITATION VTE Prophylaxis VTE Risk Assessment Done? Y/N: Yes Risk Level: Moderate Given or contraindicated: T.E.D. Stockings, SCD's
--- NOTE | 2016-12-11 07:08 | DIAGNOSTIC IMAGING REPORT ---
SINGLE VIEW CHEST CLINICAL HISTORY: Atypical chest pain. FINDINGS: An AP, portable, upright chest radiograph is compared to study dated 11/18/2016. The examination is degraded by portable technique, apical positioning, and patient rotation. The patient is status post midline sternotomy. The heart is enlarged and there is atherosclerotic calcification of the thoracic aorta. The pulmonary vasculature is noncongested. Trace pleural effusions are suspected. No airspace consolidation is seen typical for pneumonia. No pneumothorax is identified. The skeletal structures are osteopenic. A benign-appearing sclerotic focus is again seen in the left humeral head. Surgical clips are present in the upper abdomen. IMPRESSION: 1. Cardiomegaly without evidence of congestive failure. 2. Trace pleural effusions are suspected. Electronically signed by: Neil Don M.D. 12/11/2016 7:07 AM Dictated Date/Time: 12/11/2016 7:06 AM
[2016-12-11 07:37] LABS: BASO % 0.3 %; BASO ABS # 0.06 K/uL (0-0.2); COMPLETE YES; EOS % 3.7 %; HOWELL-JOLLY BODIES 1+; IG% 0.2 %; LARGE PLATELETS 1+; LYMPH % 49.3 %; LYMPH ABS # 8.49 K/uL (1.2-3.4); MONO % 12.5 %; TARGET CELLS 1+
[2016-12-11] MEDS: ASPIRIN 81 MG ECTAB PO SCH (08:10)
[2016-12-11] MEDS: NEPHROCAPS PO SCH (08:10)
[2016-12-11] MEDS: PANTOprazole SOD 40 MG TAB PO SCH (08:10)
[2016-12-11] MEDS: SEVELAMER HYDROCH 800 MG TAB PO SCH ×3 (08:11→17:16)
[2016-12-11] MEDS: METOPROLOL SUCC 50MG EXT REL TAB PO SCH ×2 (08:11→21:06)
[2016-12-11] MEDS: CLOPIDOGREL BISULFATE 75 MG TAB PO SCH (08:12)
[2016-12-11] MEDS ORDERED: NURSING VERBAL MED ORDER ONE (09:15)
[2016-12-11] MEDS ORDERED: NITROGLYCERIN OINT 2% 1GM PACKET EXT SCH (10:15)
--- NOTE | 2016-12-11 10:22 | Nephrology Consultation ---
Nephrology Consultation Date & Providers Date of Consultation: December 11, 2016. Primary Care Provider: Todd Azevedo M.D. Referring Provider: History of Present Illness Sebastian is a 60-year-old gentleman past medical history significant for ESRD currently on hemodialysis, admitted to the hospital with an an episode of chest pain at rest concerning for acute coronary syndrome. Nephrology consult was requested to provide hemodialysis care while in the hospital. EMR were reviewed in detail during the patient's visit. He was seen with his at bedside. Sebastian presented to the emergency room early this morning with an episodes when he woke up with chest pain. He took nitro without much relief and came to ED for furtehr eval.With his prior significant history of coronary artery disease, history of coronary artery bypass surgery and stent placement there was concern for acute coronary syndrome and admitted for further evaluation. EKG was remarkable for questionable ST-T changes, troponin was mildly elevated, but that has been chronic. He was admitted for further evaluation with serial cardiac enzymes. Currently his chest pain resolved and denies any shortness of breath or palpitation. Blood pressure has been well controlled. Denies any headache, dizziness, lightheadedness. Currently clinically otherwise stable and feeling better. He was recently admitted with similar symptoms from November 19 to November 21 and had 2 D echo and stress test. Plan at that time was to continue with conservative approach. His last cath was on AprMay 2015. He has very complicated past medical history. 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 He received his first living related donor transplant in 1980 and prior to the transplant he had bilateral [place] nephrectomy, splenectomy and appendectomy. He returned to maintenance hemodialysis in a few years as his transplant failed possibly because of rejection due to noncompliance. He received a second transplant in 1990 however , unfortunately it failed in few years and he again returned to maintenance hemodialysis. He received a third transplant in 2010. His serum creatinine has been stable at 1.6-2.0. 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 Currently he is on dialysis Wednesday, Wednesday, Wednesday at [facility] dialysis unit. He has been off of IS since. He has been getting his dialysis regularly, last dialysis was on Wednesday and had full treatment. Currently his volume status, electrolytes and blood pressure stable. Denies any uremic symptoms. Allergies Coded Allergies: POLLEN (Verified Allergy, Unknown, "HAYFEVER", 11/18/16) Diazoxide (Verified Adverse Reaction, Intermediate, ELEVATE BP;N&V, ) NSAIDs (Verified Adverse Reaction, Unknown, KIDNEY TRANSPLANT, 11/18/16) Inpatient Medications Current Inpatient Medications Medications (Trade) Dose Ordered Sig/Amanda Route Start Time Stop Time Status Last Admin Dose Admin Acetaminophen (Tylenol Tab) 650 mg Q4H PRN PO 12/11/16 06:45 01/10/17 06:44 Lorazepam (Ativan Inj) 0.5 mg Q4H PRN IV 12/11/16 06:45 01/10/17 06:44 Morphine Sulfate (MoRPHine SULFATE INJ) 2 mg Q2H PRN IV 12/11/16 06:45 12/25/16 06:44 Aspirin (Ecotrin Tab) 81 mg DAILY PO 12/11/16 09:00 01/10/17 08:59 12/11/16 08:10 81 MG Atorvastatin Calcium (Lipitor Tab) 20 mg HS PO 12/11/16 21:00 01/10/17 20:59 Clopidogrel Bisulfate (plAVix TAB) 75 mg DAILY PO 12/11/16 09:00 01/10/17 08:59 12/11/16 08:12 75 MG Isosorbide Mononitrate (Imdur Ext Rel Tab) 60 mg HS PO 12/11/16 21:00 01/10/17 20:59 Menthol (Nice Claudia) 1 claudia TID PRN PO 12/11/16 06:45 01/10/17 06:44 Oxycodone HCl (Roxicodone Immediate Rel Tab) 5 mg Q4H PRN PO 12/11/16 06:45 12/25/16 06:44 Pantoprazole Sodium (Protonix Tab) 40 mg DAILY PO 12/11/16 09:00 01/10/17 08:59 12/11/16 08:10 40 MG Prednisone (PredniSONE TAB) 10 mg DAILY PO 12/11/16 09:00 01/10/17 08:59 12/11/16 08:11 10 MG Vitamin B Complex/ Vit C/Folic Acid (Nephrocaps) 1 cap DAILY PO 12/11/16 09:00 01/10/17 08:59 12/11/16 08:10 1 CAP Miscellaneous Information (Order Awaiting Action) 1 ea QS N/A 12/11/16 08:00 01/10/17 07:59 Sevelamer HCl (Renagel Tab) 1,600 mg TIDM PO 12/11/16 07:45 01/10/17 07:44 12/11/16 08:11 1,600 MG Metoprolol Succinate 50 mg 50 mg BID PO 12/11/16 09:00 01/10/17 08:59 12/11/16 08:11 50 MG Nitroglycerin/ Dextrose (Nitroglycerin/ D5w 100 Mcg/Ml) 250 ml @ 0 mls/hr Q0M PRN IV 12/11/16 06:41 01/10/17 06:40 12/11/16 08:10 6 MLS/HR Family History FH: heart disease Social History Smoking Status: Never Smoker Smokeless Tobacco Use: No Alcohol Use: none Drug Use: none Marital Status: Housing Status: lives with family Occupation: employed, disabled Review of Systems A complete review of systems was performed. Pertinent positives are noted above. All other systems are negative. Physical Exam Date Time Temp Pulse Resp B/P Pulse Ox O2 Delivery O2 Flow Rate FiO2 12/11/16 09:45 36.7 79 18 139/96 95 Room Air 12/11/16 09:30 36.7 84 19 144/73 99 Room Air 12/11/16 09:15 36.7 84 19 148/77 99 Room Air 12/11/16 09:08 99 Room Air 12/11/16 09:00 36.7 84 19 136/81 99 Room Air 12/11/16 08:45 36.7 85 20 140/81 99 Room Air 12/11/16 08:30 36.7 85 18 136/76 93 Room Air 12/11/16 08:15 84 145/86 93 12/11/16 08:00 94 Room Air 12/11/16 08:00 36.7 85 18 154/96 92 Room Air 12/11/16 07:40 36.7 85 18 148/76 98 Room Air 12/11/16 07:30 36.7 94 18 125/78 97 Room Air 12/11/16 07:20 36.7 94 20 127/78 95 Room Air 12/11/16 07:00 36.7 85 18 135/85 98 Room Air 12/11/16 06:51 91 22 139/81 92 12/11/16 06:46 90 22 91 12/11/16 06:41 86 21 140/79 91 12/11/16 06:36 88 20 150/87 93 12/11/16 06:31 89 14 147/86 96 12/11/16 06:26 91 16 153/88 91 12/11/16 06:21 89 23 162/88 91 12/11/16 06:16 87 22 158/88 92 12/11/16 06:11 162/86 12/11/16 06:07 87 17 12/11/16 06:02 89 22 94 12/11/16 05:57 83 93 12/11/16 05:56 173/91 12/11/16 05:52 84 26 156/98 98 Room Air 12/11/16 05:52 85 19 95 12/11/16 05:42 170/96 12/11/16 05:41 86 19 97 12/11/16 05:31 164/108 12/11/16 05:28 161/98 12/11/16 05:23 85 12/11/16 05:23 Room Air 12/11/16 05:21 93 Room Air 12/11/16 05:21 162/90 12/11/16 05:15 37.0 87 22 162/90 93 Room Air Laboratory Results Last 24 Hours Test 12/11/16 05:25 12/11/16 05:45 White Blood Count 17.22 K/uL Red Blood Count 4.65 M/uL Hemoglobin 13.7 g/dL Hematocrit 41.8 % Mean Corpuscular Volume 89.9 fL Mean Corpuscular Hemoglobin 29.5 pg Mean Corpuscular Hemoglobin Concent 32.8 g/dl Platelet Count 403 K/uL Mean Platelet Volume 10.7 fL Neutrophils (%) (Auto) 34.0 % Lymphocytes (%) (Auto) 49.3 % Monocytes (%) (Auto) 12.5 % Eosinophils (%) (Auto) 3.7 % Basophils (%) (Auto) 0.3 % Neutrophils # (Auto) 5.84 K/uL Lymphocytes # (Auto) 8.49 K/uL Monocytes # (Auto) 2.16 K/uL Eosinophils # (Auto) 0.63 K/uL Basophils # (Auto) 0.06 K/uL RDW Standard Deviation 62.0 fL RDW Coefficient of Variation 19.1 % Immature Granulocyte % (Auto) 0.2 % Immature Granulocyte # (Auto) 0.04 K/uL Large Platelets 1+ Target Cells 1+ [place] Bodies 1+ Sodium Level 140 mmol/L Potassium Level 5.0 mmol/L Chloride Level 98 mmol/L Carbon Dioxide Level 32 mmol/L Anion Gap 10.0 mmol/L Blood Urea Nitrogen 48 mg/dl Creatinine 7.60 mg/dl Est Creatinine Clear Calc Drug Dose 10.0 ml/min Estimated GFR () 8.7 Estimated GFR (Non- 7.5 BUN/Creatinine Ratio 6.1 Random Glucose 96 mg/dl Calcium Level 9.1 mg/dl Total Bilirubin 0.6 mg/dl Direct Bilirubin 0.2 mg/dl Aspartate Amino Transf (AST/SGOT) 21 U/L Alanine Aminotransferase (ALT/SGPT) 21 U/L Alkaline Phosphatase 377 U/L Troponin I 0.103 ng/ml Total Protein 8.2 gm/dl Albumin 2.7 gm/dl Bedside Troponin I 0.130 ng/ml Impression Sebastian is a 50-year-old male with ESRD on maintenance hemodialysis admitted to the hospital with chest pain due to angina at rest. History of prior renal transplant x 3, currently off of immunosuppression after failed last allograft. Has been getting dialysis regularly and currently volume status, electrolytes and blood pressure [place]. EKG and cardiac enzymes are unremarkable and currently clinically stable with resolution of chest pain. Recently admitted to hospital with CP, w/u was unremarkable. Waiting on cardiology rec but doubt he will need any further testing at this point and most likely will continue on conservative management. Recommendations --we'll schedule for dialysis this afternoon as his regular schedule with 2 K. bath and UF as tolerated to goal for estimated dry weight --chest pain resolved, had w/u recently including Echo and stress test, doubt he will need any further testing at this point, waiting cardiology rec. --Dose all medications for GFR less than 10 --Avoid IV fluid --continue on Nephrocap daily --Blood pressure seems to be well controlled, continue home meds --We will continue on RANDY with dialysis --Continue sensipar, sevelamer and calcitriol Thank you for the consult. It was a pleasure to see Sebastian. Will follow.
[2016-12-11] MEDS: NITROGLYCERIN 2% OINTMENT 30GM TUBE EXT SCH ×3 (10:27→22:03)
[2016-12-11] MEDS ORDERED: CALCITRIOL 0.25 MCG CAP PO SCH (10:30)
[2016-12-11] MEDS ORDERED: NON-FORMULARY MEDICATION SCH (10:30)
[2016-12-11 11:19] LABS: INR 1.1 (0.9-1.1); PARTIAL THROMBOPLASTIN RATIO 1.3; PROTHROMBIN TIME (PATIENT) 11.3 SECONDS (9.0-12.0)
--- NOTE | 2016-12-11 11:59 | CRITICAL CARE CONSULTATION ---
DATE OF CONSULTATION: 12/11/2016 CHIEF COMPLAINT: Chest pain. HISTORY OF PRESENT ILLNESS: The patient is a 51-year-old gentleman, with a history of coronary artery disease status post coronary artery bypass grafting surgery in 2005. He was also recently admitted to the hospital for chest pain which was managed medically, he was felt to be at high risk for cardiac catheterization. He woke up this morning around 4:00 a.m. with 8/10 pain in the middle of his chest, moving to his shoulders and down his armpits bilaterally. He took 3 doses of nitroglycerin as well as an aspirin and proceeded to the Emergency Department when his pain was not relieved. He reports he has taken his nitroglycerin 2 or 3 times in the past 2 weeks and he is under more stress recently since he is moving his residence from a home to a 3 bedroom apartment. He reports diaphoresis and shortness of breath with his pain earlier and presently he is pain-free. In the Emergency Department he was given Zofran 4 mg IV, morphine 4 mg IV and nitroglycerin infusion. A chest x-ray as well as an EKG were performed. He arrived in the intensive care unit on 10 mcg per per minute of nitroglycerin. He continues to be chest pain-free. His initial EKG showed inferolateral ST segment depressions. Followup EKG in the ICU showed EKG changes have improved, but not entirely resolved. He reports his nitroglycerin was changed to a daily dose from b.i.d. approximately 3 months ago as well. PAST MEDICAL HISTORY: Coronary artery disease, C. diff colitis, gastric ulcer, atrial flutter, end-stage renal disease status post transplant x3, hypertension, cirrhosis and poststreptococcal glomerulonephritis. PAST SURGICAL HISTORY: Status post cholecystectomy, splenectomy, appendectomy and bilateral nephrectomy. ALLERGIES: TO DIAZOXIDE AND NSAIDS. MEDICATIONS: Aspirin 81 mg daily, atorvastatin 20 mg at bedtime, Sensipar 30 mg in the morning, Plavix 75 mg daily, isosorbide mononitrate 60 mg at bedtime, metoprolol 50 mg b.i.d., Nitrostat p.r.n., oxycodone 5 mg q. 4 hours p.r.n., Protonix 40 mg daily, prednisone 5 mg daily, Renvela 1600 mg p.o. t.i.d., Nephrocaps 1 p.o. daily and vitamin E 400 mg daily. SOCIAL HISTORY: He is and does not drink or smoke. FAMILY HISTORY: Noncontributory. REVIEW OF SYSTEMS: He reports he has been in his usual state of health over the past 2 weeks other than having to use his nitroglycerin for chest pain occasionally. He gets dialysis every Wednesday, Wednesday and Wednesday. His staff radiation therapist is Dr. Azevedo. A 12-point review of systems was obtained and is negative or noncontributory other than what is listed in the history of present illness. PHYSICAL EXAMINATION: VITAL SIGNS: Temperature 36.7, heart rate 79, respiratory rate 18, blood pressure 139/96 and oxygen saturation 95% on room air. HEENT: Pupils are equally round and reactive to light. He wears glasses. Oral mucosa is slightly dry. He has poor dentition. Posterior pharynx is clear. NECK: Veins are flat. No adenopathy. Trachea is midline. LUNGS: With very minimal bibasilar rales. No rhonchi or wheezes. HEART: Regular rate and rhythm with a soft 2/6 murmur, heard best at the left sternal border. ABDOMEN: Soft, nondistended and nontender. Active bowel sounds. He has scattered scars over the abdomen as well from previous surgeries. EXTREMITIES: Warm. No edema. SCDs are in place. NEUROLOGIC: He can move about the bed without any issues and can easily carry on a conversation. LABORATORY DATA: White blood cell count 17.22, hemoglobin 13.7, hematocrit 41.8 and platelets 403. Sodium 140, potassium 5, chloride 98, CO2 32, BUN 48, creatinine 7.6. Initial troponin 0.103, albumin 2.7. Portable chest x-ray was reviewed and shows cardiomegaly without evidence of congestive failure and trace pleural effusions are suspected. Initial EKG in the Emergency Department shows normal sinus rhythm with ST segment depressions in leads I, II, III and V2 through V6. Followup EKG at 07:16 reveals normal sinus rhythm with ST segment depressions in V2 through V6. IMPRESSION: 1. Acute coronary syndrome with known history of coronary artery disease; this is his second admission for this issue in the past 30 days. 2. Chest pain secondary to #1, resolved. 3. 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 4. History of hypertension. 5. History of splenectomy. 6. Steroid dependent, secondary to history of renal transplant. PLAN: 1. Heparin bolus and infusion. 2. Nitro paste and attempt to wean off the infusion. 3. Dialysis today. 4. The cardiology service has been consulted. 5. Continue aspirin as well as outpatient medications of atorvastatin, Plavix, isosorbide mononitrate and metoprolol. 6. Continue SCDs and Proton-pump inhibitor. 7. I will add p.r.n. morphine to his medication profile in the event that he has chest pain. 8. Trend troponins and follow up EKG. I discussed his care briefly with Dr. Garcia. The cardiology service is planning on seeing him later today. NICA
[2016-12-11] MEDS: MoRPHine SULFATE 2 MG/ML CARP IV PRN ×2 (12:18→18:53)
[2016-12-11] MEDS: HEPARIN 25,000 UNIT/500ML D5W 500 ML IV PRN ×2 (12:23→19:45)
[2016-12-11] MEDS ORDERED: HEPARIN IV BOLUS 5,000 UNIT in SYRINGE 0 ML IV ONE (12:30)
--- NOTE | 2016-12-11 12:37 | Hospitalist Progress Note ---
Hospitalist Progress Note Date of Service December 11, 2016. (Radha Vizcarra ., JAMAL) Subjective Pt evaluation today including: conversation w/ patient, physical exam, chart review, lab review, review of studies, review of inpatient medication list Voiding: no voiding problems, no incontinence Reassessed patient. Patient states he is feeling well. CP has resolved. Dialysis MWF; scheduled by Dr. Carver for this afternoon. Patient denies any fever, chills, sweats, lightheadedness, dizziness, vision changes, CP, palpitations, edema, SOB, wheezing, cough, abdominal pain, nausea, vomiting, diarrhea, urinary symptoms, melena, numbness/tingling, weakness, muscle/joint pain, anxiety/depression, active bleeding, or new skin discoloration/changes. (Radha Vizcarra, LISSAC) Medications Current Inpatient Medications Medications (Trade) Dose Ordered Sig/Amanda Route Start Time Stop Time Status Last Admin Dose Admin Acetaminophen (Tylenol Tab) 650 mg Q4H PRN PO 12/11/16 06:45 01/10/17 06:44 Lorazepam (Ativan Inj) 0.5 mg Q4H PRN IV 12/11/16 06:45 01/10/17 06:44 Morphine Sulfate (MoRPHine SULFATE INJ) 2 mg Q2H PRN IV 12/11/16 06:45 12/25/16 06:44 12/11/16 12:18 2 MG Aspirin (Ecotrin Tab) 81 mg DAILY PO 12/11/16 09:00 01/10/17 08:59 12/11/16 08:10 81 MG Atorvastatin Calcium (Lipitor Tab) 20 mg HS PO 12/11/16 21:00 01/10/17 20:59 Clopidogrel Bisulfate (plAVix TAB) 75 mg DAILY PO 12/11/16 09:00 01/10/17 08:59 12/11/16 08:12 75 MG Isosorbide Mononitrate (Imdur Ext Rel Tab) 60 mg HS PO 12/11/16 21:00 01/10/17 20:59 Menthol (Nice Claudia) 1 claudia TID PRN PO 12/11/16 06:45 01/10/17 06:44 Oxycodone HCl (Roxicodone Immediate Rel Tab) 5 mg Q4H PRN PO 12/11/16 06:45 12/25/16 06:44 Pantoprazole Sodium (Protonix Tab) 40 mg DAILY PO 12/11/16 09:00 01/10/17 08:59 12/11/16 08:10 40 MG Prednisone (PredniSONE TAB) 10 mg DAILY PO 12/11/16 09:00 01/10/17 08:59 12/11/16 08:11 10 MG Vitamin B Complex/ Vit C/Folic Acid (Nephrocaps) 1 cap DAILY PO 12/11/16 09:00 01/10/17 08:59 12/11/16 08:10 1 CAP Miscellaneous Information (Order Awaiting Action) 1 ea QS N/A 12/11/16 08:00 01/10/17 07:59 Sevelamer HCl (Renagel Tab) 1,600 mg TIDM PO 12/11/16 07:45 01/10/17 07:44 12/11/16 11:26 1,600 MG Metoprolol Succinate 50 mg 50 mg BID PO 12/11/16 09:00 01/10/17 08:59 12/11/16 08:11 50 MG Nitroglycerin/ Dextrose (Nitroglycerin/ D5w 100 Mcg/Ml) 250 ml @ 0 mls/hr Q0M PRN IV 12/11/16 06:41 01/10/17 06:40 12/11/16 08:10 6 MLS/HR Nitroglycerin (Nitroglycerin 2% Oint) 1 inch Q6H EXT 12/11/16 10:30 01/10/17 10:29 12/11/16 10:27 1 INCH Calcitriol 0.5 mcg 0.5 mcg MoWeFr@0900 PO 12/11/16 10:30 01/10/17 10:29 12/11/16 11:26 0.5 MCG Heparin Sodium (Porcine) 5000 unit/Syringe 5 ml @ 10 mls/min NOW ONCE IV 12/11/16 12:30 12/11/16 12:31 Heparin Sodium/ Dextrose (Heparin 25,000 Unit/500ml D5W) 500 ml @ 21 mls/hr [id number] PRN IV 12/11/16 12:15 01/10/17 12:14 12/11/16 12:23 21 MLS/HR (Murarik, Radha ., PA-C) Objective Vital Signs Date Time Temp Pulse Resp B/P Pulse Ox O2 Delivery O2 Flow Rate FiO2 12/11/16 12:00 95 Room Air 12/11/16 12:00 96 Room Air 12/11/16 12:00 36.7 85 18 165/94 95 Room Air 12/11/16 11:46 36.6 80 18 148/95 96 Room Air 12/11/16 11:45 36.6 80 18 148/95 96 Room Air 12/11/16 11:00 36.7 80 18 156/89 96 Room Air 12/11/16 10:45 36.7 76 18 146/84 93 Room Air 12/11/16 10:30 36.7 76 18 157/84 95 Room Air 12/11/16 10:15 36.7 76 18 131/73 95 Room Air 12/11/16 10:00 36.7 77 18 129/67 98 Room Air 12/11/16 09:45 36.7 79 18 139/96 95 Room Air 12/11/16 09:30 36.7 84 19 144/73 99 Room Air 12/11/16 09:15 36.7 84 19 148/77 99 Room Air 12/11/16 09:08 99 Room Air 12/11/16 09:00 36.7 84 19 136/81 99 Room Air 12/11/16 08:45 36.7 85 20 140/81 99 Room Air 12/11/16 08:30 36.7 85 18 136/76 93 Room Air 12/11/16 08:15 84 145/86 93 12/11/16 08:00 94 Room Air 12/11/16 08:00 36.7 85 18 154/96 92 Room Air 12/11/16 07:40 36.7 85 18 148/76 98 Room Air 12/11/16 07:30 36.7 94 18 125/78 97 Room Air 12/11/16 07:20 36.7 94 20 127/78 95 Room Air 12/11/16 07:00 36.7 85 18 135/85 98 Room Air 12/11/16 06:51 91 22 139/81 92 12/11/16 06:46 90 22 91 12/11/16 06:41 86 21 140/79 91 12/11/16 06:36 88 20 150/87 93 12/11/16 06:31 89 14 147/86 96 5/19/17 06:26 91 16 153/88 91 12/11/16 06:21 89 23 162/88 91 12/11/16 06:16 87 22 158/88 92 12/11/16 06:11 162/86 12/11/16 06:07 87 17 12/11/16 06:02 89 22 94 12/11/16 05:57 83 93 12/11/16 05:56 173/91 12/11/16 05:52 84 26 156/98 98 Room Air 12/11/16 05:52 85 19 95 12/11/16 05:42 170/96 12/11/16 05:41 86 19 97 12/11/16 05:31 164/108 12/11/16 05:28 161/98 12/11/16 05:23 85 12/11/16 05:23 Room Air 12/11/16 05:21 93 Room Air 12/11/16 05:21 162/90 12/11/16 05:15 37.0 87 22 162/90 93 Room Air (Radha Vizcarra ., PA-C) Physical Exam General Appearance: no apparent distress Eyes: normal inspection, PERRL ENT: hearing grossly normal Neck: supple Respiratory/Chest: lungs clear, no respiratory distress, no accessory muscle use Cardiovascular: regular rate, rhythm, + systolic murmur Abdomen: normal bowel sounds, non tender, soft Extremities: no pedal edema, no calf tenderness Neurologic/Psychiatric: alert, normal mood/affect, oriented x 3 Skin: normal color, warm/dry, no rash (Radha Vizcarra ., PA-C) Laboratory Results Last 24 Hours Test 12/11/16 05:25 12/11/16 05:45 12/11/16 10:59 White Blood Count 17.22 K/uL Red Blood Count 4.65 M/uL Hemoglobin 13.7 g/dL Hematocrit 41.8 % Mean Corpuscular Volume 89.9 fL Mean Corpuscular Hemoglobin 29.5 pg Mean Corpuscular Hemoglobin Concent 32.8 g/dl Platelet Count 403 K/uL Mean Platelet Volume 10.7 fL Neutrophils (%) (Auto) 34.0 % Lymphocytes (%) (Auto) 49.3 % Monocytes (%) (Auto) 12.5 % Eosinophils (%) (Auto) 3.7 % Basophils (%) (Auto) 0.3 % Neutrophils # (Auto) 5.84 K/uL Lymphocytes # (Auto) 8.49 K/uL Monocytes # (Auto) 2.16 K/uL Eosinophils # (Auto) 0.63 K/uL Basophils # (Auto) 0.06 K/uL RDW Standard Deviation 62.0 fL RDW Coefficient of Variation 19.1 % Immature Granulocyte % (Auto) 0.2 % Immature Granulocyte # (Auto) 0.04 K/uL Large Platelets 1+ Target Cells 1+ Carter-Caroline Bodies 1+ Sodium Level 140 mmol/L Potassium Level 5.0 mmol/L Chloride Level 98 mmol/L Carbon Dioxide Level 32 mmol/L Anion Gap 10.0 mmol/L Blood Urea Nitrogen 48 mg/dl Creatinine 7.60 mg/dl Est Creatinine Clear Calc Drug Dose 10.0 ml/min Estimated GFR () 8.7 Estimated GFR (Non- 7.5 BUN/Creatinine Ratio 6.1 Random Glucose 96 mg/dl Calcium Level 9.1 mg/dl Total Bilirubin 0.6 mg/dl Direct Bilirubin 0.2 mg/dl Aspartate Amino Transf (AST/SGOT) 21 U/L Alanine Aminotransferase (ALT/SGPT) 21 U/L Alkaline Phosphatase 377 U/L Troponin I 0.103 ng/ml 2.220 ng/ml Total Protein 8.2 gm/dl Albumin 2.7 gm/dl Bedside Troponin I 0.130 ng/ml Prothrombin Time 11.3 SECONDS Prothromb Time International Ratio 1.1 Activated Partial Thromboplast Time 33.3 SECONDS Partial Thromboplastin Ratio 1.3 Total Creatine Kinase 60 U/L Creatine Kinase MB 6.0 ng/ml Creatine Kinase MB Ratio 10.0 (Radha Vizcarra, OSCAR-C) Assessment and Plan The patient is a 51-year-old male who presents emergency department with complaint of chest, bilateral axillary and neck pain accompanied by shortness of breath since he woke up at 4:15 this a.m. He took 3 sublingual nitroglycerin without relief and a full dose of aspirin prior to arrival. He reports his pain was rated as 4/10 when he woke up, and upon arrival to the ED had increased 8/10. He was given morphine IV in the emergency department, followed by institution of a nitroglycerin drip, and he now reports his pain is negligible and his breathing has now normalized. He does have end-stage renal disease and is due for dialysis today. His most recent admission was from November 19 to November 21 for chest pain and was seen by cardiology at that time. He reports during that admission that his isosorbide mononitrate extended release was decreased from 60 mg twice a day to 60 mg at bedtime. Unstable angina/ACS/CAD s/p CAGB and stent placement: - Admitted to ICU - Trending cardiac enzymes- initial trop 0.103 - Nitro infusion, trying to wean w/ Nitro paste - IV Heparin drip - Following EKGs w/ improvement since admission - Continue ASA 81 mg daily, Plavix 75 mg daily, Isosorbide mononitrate ER 60 mg HS, and Metoprolol succinate ER 50 mg BID - Cardiology consulted ESRD, s/p transplant x3, on hemodialysis MWF: - Nephrology consulted - To receive dialysis inpatient on 12/11 - Continue Renvela 1600 mg TID, Sensipar 30 mg QAM, Prednisone increased from 5 mg to 10 mg daily Hypercholesterolemia: Atorvastatin 20 mg HS GERD: Protonix 40 mg daily GI Prophylaxis: Protonix DVT Prophylaxis: Heparin Dispo: Discharge to home once medically stable (Radha Vizcarra ., PAMary) PA Physician Supervision Note: I interviewed and examined the patient. Discussed with Radha LOVE and agree with findings and plan as documented in the note. Any exceptions or clarifications are listed here: None Pt with known non operative, medical management CAD, has resolution of pain, and cardiology feels should proceed with medical management vitals reviewed, undergoing hemodialysis car is regular with JIM LUngs are clear abd is soft ext without edema Unstable angina/ACS/CAD s/p CAGB and stent placement: - Nitro infusion, wean w/ Nitro paste - stop IV Heparin drip - Continue ASA 81 mg daily, Plavix 75 mg daily, Isosorbide mononitrate ER 60 mg HS, and Metoprolol succinate ER 50 mg BID - Cardiology consulted and recommend medical management ESRD, s/p transplant x3, on hemodialysis MWF: - Nephrology consulted dialysis inpatient on 12/11 - Renvela 1600 mg TID, Sensipar 30 mg QAM, Prednisone increased from 5 mg to 10 mg daily Hypercholesterolemia: Atorvastatin 20 mg HS DVT Prophylaxis: Heparin change to sc Documented By: Saleem Pollack (Saleem Pollack M.D.)
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
[2016-12-11 19:38] LABS: PARTIAL THROMBOPLASTIN RATIO 2.8
[2016-12-11] MEDS ORDERED: ISOSORBIDE MONONITRATE 30 MG TABCR PO SCH (21:00)
[2016-12-11] MEDS: ATORVASTATIN 20 MG TAB PO SCH (21:06)
[2016-12-12] VITALS (11 sets, daily range): BP systolic 124–175; BP diastolic 65–98; PULSE 73–92; TEMP 36.6–37.1; O2SAT 92–97
[2016-12-12] MEDS: MoRPHine SULFATE 2 MG/ML CARP IV PRN ×2 (01:11→11:24)
[2016-12-12] MEDS ORDERED: ONDANSETRON INJ 2 MG/ML 2 ML VIAL IV PRN (01:30)
[2016-12-12 02:31] LABS: PARTIAL THROMBOPLASTIN RATIO 2.7
[2016-12-12] MEDS: NITROGLYCERIN 2% OINTMENT 30GM TUBE EXT SCH (04:19)
[2016-12-12 05:52] LABS: HEMATOCRIT 41.2 % (42-52); MEAN CELL VOLUME 90.4 fL (80-100); MEAN CORPUSCULAR HEMOGLOBIN 29.8 pg (25-34); MEAN PLATELET VOLUME 10.9 fL (7.4-10.4); PLATELET COUNT 398 K/uL (130-400); RED BLOOD COUNT 4.56 M/uL (4.7-6.1); WHITE BLOOD COUNT 13.81 K/uL (4.8-10.8)
[2016-12-12 06:14] LABS: PROTHROMBIN TIME (PATIENT) 11.2 SECONDS (9.0-12.0)
[2016-12-12 06:42] LABS: BUN/CREATININE RATIO 5.1 (10-20); CALCIUM 9.3 mg/dl (8.5-10.1); MAGNESIUM 2.4 mg/dl (1.8-2.4); POTASSIUM 4.4 mmol/L (3.5-5.1)
[2016-12-12 06:48] LABS: COMPLETE YES; EOSINOPHIL % 2.6 %; HOWELL-JOLLY BODIES 1+; LYMPHOCYTE % 8.7 %; NEUTROPHILS % 59.2 %; TARGET CELLS 1+; VARIANT LYM ABS # 3.48 K/uL; VARIANT LYMPHOCYTE % 25.2 %
--- NOTE | 2016-12-12 07:17 | DIAGNOSTIC IMAGING REPORT ---
CHEST ONE VIEW PORTABLE CLINICAL HISTORY: UNSTABLE ANGINA chest pain COMPARISON STUDY: 12/11/2016 FINDINGS: Moderate stable cardiomegaly. Findings of a median sternotomy are again noted. Findings of mild congestive heart failure similar. IMPRESSION: Cardiomegaly. Findings of mild congestive failure similar radiographically to the prior exam. Electronically signed by: Sebastian Vidal M.D. 12/12/2016 7:15 AM Dictated Date/Time: 12/12/2016 7:14 AM
[2016-12-12] MEDS: SEVELAMER HYDROCH 800 MG TAB PO SCH ×3 (08:29→16:35)
[2016-12-12] MEDS ORDERED: ISOSORBIDE MONONITRATE 30 MG TABCR PO SCH (09:00)
[2016-12-12] MEDS: ASPIRIN 81 MG ECTAB PO SCH (09:35)
[2016-12-12] MEDS: CLOPIDOGREL BISULFATE 75 MG TAB PO SCH (09:35)
[2016-12-12] MEDS: PANTOprazole SOD 40 MG TAB PO SCH (09:35)
[2016-12-12] MEDS: NEPHROCAPS PO SCH (09:35)
[2016-12-12] MEDS: METOPROLOL SUCC 50MG EXT REL TAB PO SCH ×2 (09:36→20:33)
--- NOTE | 2016-12-12 09:46 | Nephrology Progress Note ---
Nephrology Progress Note Date of Service December 12, 2016. Chief Complaint Follow up evaluation of this patient w/ ESRD admitted with NSTEMI Subjective Mr. Segura was seen & examined in the ICU this morning. He developed a nose bleed last night while on his heparin drip. The bleeding has stopped on its own. He did not require intervention. The patient was admitted w/ a NSTEMI. He currently denies angina Mr. Segura has ESRD requiring HD. HD RN notes reviewed this am. Patient was dialyzed for 4 hours yesterday without complication. 2 L UF obtained. Review of Systems Constitutional: No fever Cardiovascular: No chest pain Abdomen: No nausea, No pain, No vomiting Extremities: No leg edema A complete review of systems was performed. Pertinent positives are noted above. All other systems are negative. Vital Signs Last 8 Hrs Date Time Temp Pulse Resp B/P Pulse Ox O2 Delivery O2 Flow Rate FiO2 12/12/16 08:03 36.7 82 18 139/76 92 Room Air 12/12/16 08:00 Room Air 12/12/16 04:00 36.6 92 19 163/98 95 Room Air 12/12/16 04:00 Room Air 12/12/16 02:00 87 22 164/91 94 I & O 24-Hour Column 12/12/16 07:59 Intake Total 1870 ml Output Total 2000 ml Balance -130 ml Last Recorded Weight Weight (Kilograms): 57.100 Physical Exam General Appearance: no apparent distress Head: normocephalic, atraumatic Eyes: PERRL, EOMI Neck: no adenopathy Respiratory/Chest: lungs clear, no respiratory distress Cardiovascular: regular rate, rhythm Abdomen/GI: normal bowel sounds, non tender, soft Extremities/Musculoskelatal: no pedal edema Neurologic/Psych: alert, oriented x 3 Family History FH: heart disease Social History Smoking Status: Never smoker Smokeless Tobacco Use: No Alcohol Use: none Drug Use: none Marital Status: Housing Status: lives with family Occupation: employed, disabled Laboratory Results Past 24 Hours 12/12/16 05:39 Red Blood Count 4.56, Mean Corpuscular Volume 90.4, Mean Corpuscular Hemoglobin 29.8, Mean Corpuscular Hemoglobin Concent 33.0, Mean Platelet Volume 10.9 12/12/16 05:39 Test 12/11/16 10:59 12/11/16 18:48 12/12/16 02:07 12/12/16 05:39 Prothrombin Time 11.3 SECONDS (9.0-12.0) 11.2 SECONDS (9.0-12.0) Prothromb Time International Ratio 1.1 (0.9-1.1) 1.0 (0.9-1.1) Activated Partial Thromboplast Time 33.3 SECONDS (21.0-31.0) 72.5 SECONDS (21.0-31.0) 69.2 SECONDS (21.0-31.0) 51.0 SECONDS (21.0-31.0) Partial Thromboplastin Ratio 1.3 2.8 2.7 2.0 Total Creatine Kinase 60 U/L (39-308) 52 U/L (39-308) Creatine Kinase MB 6.0 ng/ml (0.5-3.6) 5.7 ng/ml (0.5-3.6) Creatine Kinase MB Ratio 10.0 (0-3.0) 11.0 (0-3.0) Troponin I 2.220 ng/ml (0-0.045) 2.920 ng/ml (0-0.045) 2.190 ng/ml (0-0.045) White Blood Count 13.81 K/uL (4.8-10.8) Red Blood Count 4.56 M/uL (4.7-6.1) Hemoglobin 13.6 g/dL (14.0-18.0) Hematocrit 41.2 % (42-52) Mean Corpuscular Volume 90.4 fL (80-100) Mean Corpuscular Hemoglobin 29.8 pg (25-34) Mean Corpuscular Hemoglobin Concent 33.0 g/dl (32-36) Platelet Count 398 K/uL (130-400) Mean Platelet Volume 10.9 fL (7.4-10.4) RDW Standard Deviation 63.9 fL (36.4-46.3) RDW Coefficient of Variation 19.3 % (11.5-14.5) Neutrophils % (Manual) 59.2 % Lymphocytes % (Manual) 8.7 % Variant Lymphocytes % (manual) 25.2 % Monocytes % (Manual) 4.3 % Eosinophils % (Manual) 2.6 % Neutrophils # (Manual) 8.18 K/uL (1.4-6.5) Total Absolute Neutrophils 8.18 K/uL (1.4-6.5) Lymphocytes # (Manual) 1.20 K/uL (1.2-3.4) Absolute Variant Lymphocytes 3.48 K/uL Total Absolute Lymphocytes 4.68 K/uL (1.2-3.4) Monocytes # (Manual) 0.59 K/uL (0.11-0.59) Eosinophils # (Manual) 0.36 K/uL (0-0.5) Target Cells 1+ [place] Bodies 1+ Anion Gap 8.0 mmol/L (3-11) Est Creatinine Clear Calc Drug Dose 14.3 ml/min Estimated GFR () 14.5 Estimated GFR (Non- 12.5 BUN/Creatinine Ratio 5.1 (10-20) Calcium Level 9.3 mg/dl (8.5-10.1) Magnesium Level 2.4 mg/dl (1.8-2.4) Allergies Coded Allergies: POLLEN (Verified Allergy, Unknown, "HAYFEVER", 11/18/16) Diazoxide (Verified Adverse Reaction, Intermediate, ELEVATE BP;N&V, ) NSAIDs (Verified Adverse Reaction, Unknown, KIDNEY TRANSPLANT, 11/18/16) Medications Current Inpatient Medications Medications (Trade) Dose Ordered Sig/Amanda Route Start Time Stop Time Status Last Admin Dose Admin Acetaminophen (Tylenol Tab) 650 mg Q4H PRN PO 12/11/16 06:45 01/10/17 06:44 Lorazepam (Ativan Inj) 0.5 mg Q4H PRN IV 12/11/16 06:45 01/10/17 06:44 Morphine Sulfate (MoRPHine SULFATE INJ) 2 mg Q2H PRN IV 12/11/16 06:45 12/25/16 06:44 12/12/16 01:11 2 MG Aspirin (Ecotrin Tab) 81 mg DAILY PO 12/11/16 09:00 01/10/17 08:59 12/11/16 08:10 81 MG Atorvastatin Calcium (Lipitor Tab) 20 mg HS PO 12/11/16 21:00 01/10/17 20:59 12/11/16 21:06 20 MG Clopidogrel Bisulfate (plAVix TAB) 75 mg DAILY PO 12/11/16 09:00 01/10/17 08:59 12/11/16 08:12 75 MG Isosorbide Mononitrate (Imdur Ext Rel Tab) 60 mg HS PO 12/11/16 21:00 01/10/17 20:59 12/11/16 21:07 60 MG Menthol (Nice Claudia) 1 claudia TID PRN PO 12/11/16 06:45 01/10/17 06:44 Oxycodone HCl (Roxicodone Immediate Rel Tab) 5 mg Q4H PRN PO 12/11/16 06:45 12/25/16 06:44 Pantoprazole Sodium (Protonix Tab) 40 mg DAILY PO 12/11/16 09:00 01/10/17 08:59 12/11/16 08:10 40 MG Prednisone (PredniSONE TAB) 10 mg DAILY PO 12/11/16 09:00 01/10/17 08:59 12/11/16 08:11 10 MG Vitamin B Complex/ Vit C/Folic Acid (Nephrocaps) 1 cap DAILY PO 12/11/16 09:00 01/10/17 08:59 12/11/16 08:10 1 CAP Miscellaneous Information (Order Awaiting Action) 1 ea QS N/A 12/11/16 08:00 01/10/17 07:59 Sevelamer HCl (Renagel Tab) 1,600 mg TIDM PO 12/11/16 07:45 01/10/17 07:44 12/11/16 17:16 1,600 MG Metoprolol Succinate (Toprol Xl Tab) 50 mg BID PO 12/11/16 09:00 01/10/17 08:59 12/11/16 21:06 50 MG Calcitriol (Rocaltrol Cap) 0.5 mcg MoWeFr@0900 PO 12/11/16 10:30 01/10/17 10:29 12/11/16 11:26 0.5 MCG Ondansetron HCl (Zofran Inj) 4 mg Q6H PRN IV 12/12/16 01:30 01/11/17 01:29 12/12/16 01:49 4 MG Isosorbide Mononitrate (Imdur Ext Rel Tab) 30 mg QAM PO 12/12/16 09:00 01/11/17 08:59 Impression (1) End-stage renal disease on hemodialysis (2) Elevated troponin (3) Hx of CABG (4) History of renal transplant Mr. Segura is a 50-year-old male w/ ESRD requiring IHD admitted due to NSTEMI. History of prior renal transplant x 3. Now off all immunosuppression. Patient has h/o ASCVD s/p CABG, hyperlipidemia, HTN, PVD and is s/p splenectomy and cholecystectomy. Recommendations END STAGE RENAL DISEASE: -- HD RN notes reviewed. Volume status and electrolyte balance are acceptable at this time. No acute indication for HD today -- If discharge is anticipated please have patient resume his regular outpatient HD schedule at the [facility] HD unit HYPERTENSION: -- Blood pressure is mildly elevated this morning. Recommend titrating nitrate therapy ANEMIA: -- Hgb above target range of 10 - 11. No acute indication for RANDY at this time CV: -- Admitted w/ NSTEMI. Currently CP free. Cardiology recommendations reviewed this am. Medical management is being provided -- Await further Cardiology input
[2016-12-12] MEDS ORDERED: MoRPHine SULFATE 2 MG/ML CARP IV STA (11:20)
[2016-12-12] MEDS ORDERED: NITROGLYCERIN 0.4 MG SL PER TAB CHARGE SL STA (11:21)
[2016-12-12] MEDS ORDERED: NITROGLYCERIN 0.4 MG SL PER TAB CHARGE SL PRN (11:30)
--- NOTE | 2016-12-12 13:47 | Progress Note ---
Subjective Date of Service: December 12, 2016. Subjective this pt was initially feeling well without chest pain did have significant chest pain with walknig in the ICU after 30 mg of isosorbide. the pain was substernal and 5/10, eventually relieved with SL nitro and rest, no other associated symptoms, but now feels tired. Discussion with cardiology of will need to consider more of a workup. does have some mild lower quadrant abdominal pain not worsened with eating, no nausea no vomiting, is having bowel movements I did 10 system ROS and negative unless listed here Problem List Medical Problems: (1) Atrial flutter with rapid ventricular response Status: Acute (2) Chest pain Status: Acute (3) Chest pain Status: Acute (4) Chest pain Status: Acute (5) Elevated troponin Status: Acute (6) Elevated troponin Status: Acute (7) End stage renal disease Status: Acute (8) ESRD (end stage renal disease) Status: Acute (9) GI bleed Status: Acute (10) Hyperbilirubinemia Status: Acute (11) Lower GI bleeding Status: Acute (12) Peptic ulcer disease Status: Acute (13) Precordial chest pain Status: Acute (14) RUQ abdominal pain Status: Acute (15) Sepsis Status: Acute (16) Sepsis Status: Acute (17) Substernal precordial chest pain Status: Acute (18) Unstable angina Status: Acute (19) Upper abdominal pain Status: Acute (20) Wrist pain, left Status: Acute Social History Problems: (1) H/O splenectomy Status: Acute Objective Vital Signs Date Time Temp Pulse Resp B/P Pulse Ox O2 Delivery O2 Flow Rate FiO2 12/12/16 12:25 76 17 154/90 96 12/12/16 12:00 Room Air 12/12/16 11:31 78 17 161/88 12/12/16 11:15 80 26 153/94 12/12/16 11:08 36.7 76 18 175/92 97 Room Air 12/12/16 10:00 76 20 165/95 95 Room Air 12/12/16 08:03 36.7 82 18 139/76 92 Room Air 12/12/16 08:00 Room Air 12/12/16 04:00 36.6 92 19 163/98 95 Room Air 12/12/16 04:00 Room Air 12/12/16 02:00 87 22 164/91 94 12/12/16 00:00 Room Air 12/12/16 00:00 36.7 82 18 124/65 93 Room Air 12/11/16 23:00 78 21 123/80 92 Room Air 12/11/16 22:00 78 18 125/72 96 Room Air 12/11/16 21:00 80 17 132/76 94 12/11/16 20:00 Room Air 12/11/16 20:00 80 21 125/67 94 Room Air 12/11/16 19:00 36.7 83 21 123/65 92 Room Air 12/11/16 18:00 36.6 84 19 129/73 92 Room Air 12/11/16 17:05 36.5 83 157/83 12/11/16 17:00 36.8 88 19 157/89 97 Room Air 12/11/16 16:30 81 149/79 12/11/16 16:15 82 149/88 12/11/16 16:00 84 136/79 12/11/16 16:00 36.8 81 19 149/88 97 Room Air 12/11/16 16:00 97 Room Air 12/11/16 15:45 83 136/79 12/11/16 15:30 79 151/84 12/11/16 15:15 82 137/83 12/11/16 15:00 16 95 Room Air 12/11/16 15:00 82 135/71 12/11/16 14:45 81 136/80 12/11/16 14:30 80 129/76 12/11/16 14:15 82 143/75 12/11/16 14:00 98 Room Air 12/11/16 14:00 83 130/76 12/11/16 13:45 83 127/82 Physical Exam General Appearance: WD/WN, + mild distress Eyes: PERRL, EOMI Neck: supple, thyroid normal Respiratory/Chest: chest non-tender, + decreased breath sounds, + rales Cardiovascular: regular rate, rhythm, no murmur Abdomen: normal bowel sounds, soft, + tenderness Extremities: no pedal edema, no calf tenderness, + pertinent finding (thrill at AV site) Neurologic/Psychiatric: alert, oriented x 3 Laboratory Results Last 24 Hours Test 12/11/16 18:48 12/12/16 02:07 12/12/16 05:39 Activated Partial Thromboplast Time 72.5 SECONDS 69.2 SECONDS 51.0 SECONDS Partial Thromboplastin Ratio 2.8 2.7 2.0 Total Creatine Kinase 52 U/L Creatine Kinase MB 5.7 ng/ml Creatine Kinase MB Ratio 11.0 Troponin I 2.920 ng/ml 2.190 ng/ml White Blood Count 13.81 K/uL Red Blood Count 4.56 M/uL Hemoglobin 13.6 g/dL Hematocrit 41.2 % Mean Corpuscular Volume 90.4 fL Mean Corpuscular Hemoglobin 29.8 pg Mean Corpuscular Hemoglobin Concent 33.0 g/dl Platelet Count 398 K/uL Mean Platelet Volume 10.9 fL RDW Standard Deviation 63.9 fL RDW Coefficient of Variation 19.3 % Neutrophils % (Manual) 59.2 % Lymphocytes % (Manual) 8.7 % Variant Lymphocytes % (manual) 25.2 % Monocytes % (Manual) 4.3 % Eosinophils % (Manual) 2.6 % Neutrophils # (Manual) 8.18 K/uL Total Absolute Neutrophils 8.18 K/uL Lymphocytes # (Manual) 1.20 K/uL Absolute Variant Lymphocytes 3.48 K/uL Total Absolute Lymphocytes 4.68 K/uL Monocytes # (Manual) 0.59 K/uL Eosinophils # (Manual) 0.36 K/uL Target Cells 1+ [place] Bodies 1+ Prothrombin Time 11.2 SECONDS Prothromb Time International Ratio 1.0 Sodium Level 140 mmol/L Potassium Level 4.4 mmol/L Chloride Level 102 mmol/L Carbon Dioxide Level 30 mmol/L Anion Gap 8.0 mmol/L Blood Urea Nitrogen 25 mg/dl Creatinine 5.00 mg/dl Est Creatinine Clear Calc Drug Dose 14.3 ml/min Estimated GFR () 14.5 Estimated GFR (Non- 12.5 BUN/Creatinine Ratio 5.1 Random Glucose 111 mg/dl Calcium Level 9.3 mg/dl Magnesium Level 2.4 mg/dl Assessment and Plan 51 M with known CAD and previous cabg who presents with chest pain recent reduction in nitrates Unstable angina/ACS/CAD s/p CAGB and stent placement: stopped Nitro paste IV Heparin drip, started isosorbide 30 mg in am and continued ASA 81 mg daily, Plavix 75 mg daily, Isosorbide mononitrate ER 60 mg HS, and Metoprolol succinate ER 50 mg BID, pt had exertional chest pain, initially Cardiology consulted and recommend medical management, but with this recurrence will consider ranexa or other ESRD, stable s/p transplant x3, on hemodialysis MWF: - Nephrology consulted dialysis inpatient on 12/11 - Renvela 1600 mg TID, Sensipar 30 mg QAM, Prednisone increased from 5 mg to 10 mg daily Hypercholesterolemia: Atorvastatin 20 mg HS DVT Prophylaxis: Heparin change to sc Documented By: Saleem Pollack
--- NOTE | 2016-12-12 15:55 | Cardiology Follow-Up ---
Subjective Subjective Date of Service: December 12, 2016. Pt evaluation today including: conversation w/ patient, physical exam, chart review, lab review, review of studies, review of inpatient medication list Additional Details: Episode of chest pain with exertion this AM. Pain eventually relieved with nitro Since that time was up walking around ICU without pain. At present feeling well. No shortness of breath. No other new concerns. Problem List Medical Problems: (1) Atrial flutter with rapid ventricular response Status: Acute (2) Chest pain Status: Acute (3) Chest pain Status: Acute (4) Chest pain Status: Acute (5) Elevated troponin Status: Acute (6) Elevated troponin Status: Acute (7) End stage renal disease Status: Acute (8) ESRD (end stage renal disease) Status: Acute (9) GI bleed Status: Acute (10) Hyperbilirubinemia Status: Acute (11) Lower GI bleeding Status: Acute (12) Peptic ulcer disease Status: Acute (13) Precordial chest pain Status: Acute (14) RUQ abdominal pain Status: Acute (15) Sepsis Status: Acute (16) Sepsis Status: Acute (17) Substernal precordial chest pain Status: Acute (18) Unstable angina Status: Acute (19) Upper abdominal pain Status: Acute (20) Wrist pain, left Status: Acute Social History Problems: (1) H/O splenectomy Status: Acute Review of Systems Constitutional: No fever ENT: No hearing loss Respiratory: No cough Cardiac: + chest pain, + see HPI Abdomen: No nausea, No pain Male : No dysuria Heme: No abnormal bleeding/bruising Endo: No fatigue Objective Vital Signs Last Vital Signs Documentation Date Time Temp Pulse Resp B/P Pulse Ox O2 Delivery O2 Flow Rate FiO2 12/12/16 14:41 36.7 76 17 96 12/12/16 12:25 154/90 12/12/16 12:00 Room Air Physical Exam: General Appearance: WD/WN, + mild distress ENT: hearing grossly normal Neck: supple Respiratory/Chest: chest non-tender, + decreased breath sounds Cardiovascular: regular rate, rhythm, + systolic murmur Abdomen: normal bowel sounds, soft, + tenderness Extremities: no pedal edema, no calf tenderness, + pertinent finding (thrill at AV site) Neurologic/Psychiatric: alert, oriented x 3 Skin: normal color, warm/dry, no rash Lymphatic: no adenopathy Assessment and Plan 1. NSTEMI -- trop peaked. repeat pain today with exertion. hemodynamically electrically stable 2. CAD -- s/p 3 vCABG, prior ANTON to distal LAD, LM into circumflex. Recent positive stress for inferior ischemia. 3. ESRD on HD -- last HD yesterday 4. HTN -- above goal at present; low with HD 5. HLD -- on high-intensity statin 6. Questionable history of cirrhosis 7. Prior GI Bleed With repeated NSTEMIs again discussed with patient possible elective cardiac catheterization. Patient would be high risk for any procedure and he is reluctant to undergo repeat cath. 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 Molina. In the short term would continue heparin infusion today, continue DAPT with ASA/ plavix, current beta-rubin and statin. Agree with increasing imdur to 60mg BID. Would hold off on ranexa in the setting of ACS. Could consider as an outpatient, but have concern regarding its use in the setting of borderline QTc, possible cirrhosis and ESRD. Will continue to follow. Medications: Current Inpatient Medications Medications (Trade) Dose Ordered Sig/Amanda Route Start Time Stop Time Status Last Admin Dose Admin Acetaminophen (Tylenol Tab) 650 mg Q4H PRN PO 12/11/16 06:45 01/10/17 06:44 Lorazepam (Ativan Inj) 0.5 mg Q4H PRN IV 12/11/16 06:45 01/10/17 06:44 Morphine Sulfate (MoRPHine SULFATE INJ) 2 mg Q2H PRN IV 12/11/16 06:45 12/25/16 06:44 12/12/16 11:24 2 MG Aspirin (Ecotrin Tab) 81 mg DAILY PO 12/11/16 09:00 01/10/17 08:59 12/12/16 09:35 81 MG Atorvastatin Calcium (Lipitor Tab) 20 mg HS PO 12/11/16 21:00 01/10/17 20:59 12/11/16 21:06 20 MG Clopidogrel Bisulfate (plAVix TAB) 75 mg DAILY PO 12/11/16 09:00 01/10/17 08:59 12/12/16 09:35 75 MG Menthol (Nice Claudia) 1 claudia TID PRN PO 12/11/16 06:45 01/10/17 06:44 Oxycodone HCl (Roxicodone Immediate Rel Tab) 5 mg Q4H PRN PO 12/11/16 06:45 12/25/16 06:44 12/12/16 11:13 5 MG Pantoprazole Sodium (Protonix Tab) 40 mg DAILY PO 12/11/16 09:00 01/10/17 08:59 12/12/16 09:35 40 MG Prednisone (PredniSONE TAB) 10 mg DAILY PO 12/11/16 09:00 01/10/17 08:59 12/12/16 09:35 10 MG Vitamin B Complex/ Vit C/Folic Acid (Nephrocaps) 1 cap DAILY PO 12/11/16 09:00 01/10/17 08:59 12/12/16 09:35 1 CAP Miscellaneous Information (Order Awaiting Action) 1 ea QS N/A 12/11/16 08:00 01/10/17 07:59 Sevelamer HCl (Renagel Tab) 1,600 mg TIDM PO 12/11/16 07:45 01/10/17 07:44 12/12/16 12:27 1,600 MG Metoprolol Succinate (Toprol Xl Tab) 50 mg BID PO 12/11/16 09:00 01/10/17 08:59 12/12/16 09:36 50 MG Calcitriol (Rocaltrol Cap) 0.5 mcg MoWeFr@0900 PO 12/11/16 10:30 01/10/17 10:29 12/11/16 11:26 0.5 MCG Ondansetron HCl (Zofran Inj) 4 mg Q6H PRN IV 12/12/16 01:30 01/11/17 01:29 12/12/16 01:49 4 MG Nitroglycerin (Nitrostat Tab) 0.4 mg PRN PRN SL 12/12/16 11:30 01/11/17 11:29 12/12/16 11:26 0.4 MG Isosorbide Mononitrate (Imdur Ext Rel Tab) 60 mg BID PO 12/12/16 21:00 01/11/17 20:59 Heparin Sodium (Porcine) (Heparin Sq 5000 Unit/0.5ml) 5,000 unit Q12 SQ 12/12/16 21:00 01/11/17 20:59 Lab Results: 12/12/16 05:39 Red Blood Count 4.56, Mean Corpuscular Volume 90.4, Mean Corpuscular Hemoglobin 29.8, Mean Corpuscular Hemoglobin Concent 33.0, Mean Platelet Volume 10.9 12/12/16 05:39 Test 12/11/16 18:48 12/12/16 02:07 12/12/16 05:39 Total Creatine Kinase 52 U/L (39-308) Creatine Kinase MB 5.7 ng/ml (0.5-3.6) Creatine Kinase MB Ratio 11.0 (0-3.0) Troponin I 2.190 ng/ml (0-0.045) White Blood Count 13.81 K/uL (4.8-10.8) Red Blood Count 4.56 M/uL (4.7-6.1) Hemoglobin 13.6 g/dL (14.0-18.0) Hematocrit 41.2 % (42-52) Mean Corpuscular Volume 90.4 fL (80-100) Mean Corpuscular Hemoglobin 29.8 pg (25-34) Mean Corpuscular Hemoglobin Concent 33.0 g/dl (32-36) Platelet Count 398 K/uL (130-400) Mean Platelet Volume 10.9 fL (7.4-10.4) RDW Standard Deviation 63.9 fL (36.4-46.3) RDW Coefficient of Variation 19.3 % (11.5-14.5) Neutrophils % (Manual) 59.2 % Lymphocytes % (Manual) 8.7 % Variant Lymphocytes % (manual) 25.2 % Monocytes % (Manual) 4.3 % Eosinophils % (Manual) 2.6 % Neutrophils # (Manual) 8.18 K/uL (1.4-6.5) Total Absolute Neutrophils 8.18 K/uL (1.4-6.5) Lymphocytes # (Manual) 1.20 K/uL (1.2-3.4) Absolute Variant Lymphocytes 3.48 K/uL Total Absolute Lymphocytes 4.68 K/uL (1.2-3.4) Monocytes # (Manual) 0.59 K/uL (0.11-0.59) Eosinophils # (Manual) 0.36 K/uL (0-0.5) Target Cells 1+ [place] Bodies 1+ Prothrombin Time 11.2 SECONDS (9.0-12.0) Prothromb Time International Ratio 1.0 (0.9-1.1) Activated Partial Thromboplast Time 51.0 SECONDS (21.0-31.0) Partial Thromboplastin Ratio 2.0 Anion Gap 8.0 mmol/L (3-11) Est Creatinine Clear Calc Drug Dose 14.3 ml/min Estimated GFR () 14.5 Estimated GFR (Non- 12.5 BUN/Creatinine Ratio 5.1 (10-20) Calcium Level 9.3 mg/dl (8.5-10.1) Magnesium Level 2.4 mg/dl (1.8-2.4)
[2016-12-12] MEDS: ATORVASTATIN 20 MG TAB PO SCH (20:33)
[2016-12-12] MEDS: ISOSORBIDE MONONITRATE 60 MG TABCR PO SCH (21:16)
[2016-12-12] MEDS: HEPARIN SOD 5000 UNIT/0.5 ML CARP SQ SCH (21:18)
[2016-12-12] MEDS: LORAZEPAM 2 MG/ML 1 ML VIAL IV PRN (22:24)
[2016-12-13 00:13] VITALS: BP 124/68; PULSE 66; TEMP 36.7; O2SAT 97
[2016-12-13] MEDS: LORAZEPAM 2 MG/ML 1 ML VIAL IV PRN (02:30)
[2016-12-13 03:41] VITALS: BP 171/96; PULSE 85; TEMP 36.8; O2SAT 96
--- NOTE | 2016-12-13 07:43 | DIAGNOSTIC IMAGING REPORT ---
CHEST ONE VIEW PORTABLE HISTORY: UNSTABLE ANGINA COMPARISON: Chest 12/12/2016. FINDINGS: The heart remains enlarged. There is developing pulmonary edema. No pleural effusions. No pneumothorax. No new focal lung consolidations. Surgical clips within the upper abdomen. There are poststernotomy changes. IMPRESSION: No change in the cardiomegaly and developing pulmonary edema. Electronically signed by: Smith Reed M.D. 12/13/2016 7:42 AM Dictated Date/Time: 12/13/2016 7:41 AM
[2016-12-13 07:45] LABS: PARTIAL THROMBOPLASTIN RATIO 1.2; PROTHROMBIN TIME (PATIENT) 10.7 SECONDS (9.0-12.0)
[2016-12-13 07:58] LABS: HEMATOCRIT 39.1 % (42-52); MEAN CELL VOLUME 89.7 fL (80-100); MEAN CORPUSCULAR HEMOGLOBIN 29.4 pg (25-34); MEAN CORPUSCULAR HGB CONC 32.7 g/dl (32-36); MEAN PLATELET VOLUME 10.2 fL (7.4-10.4); PLATELET COUNT 381 K/uL (130-400); RED BLOOD COUNT 4.36 M/uL (4.7-6.1); WHITE BLOOD COUNT 12.35 K/uL (4.8-10.8)
[2016-12-13 08:12] LABS: BASO % 0.3 %; BASO ABS # 0.04 K/uL (0-0.2); COMPLETE YES; EOS % 3.2 %; HOWELL-JOLLY BODIES 1+; IG% 0.4 %; LYMPH ABS # 4.32 K/uL (1.2-3.4); MONO % 7.9 %; NEUT % 53.2 %; TARGET CELLS 1+
[2016-12-13 08:16] VITALS: BP 123/64; PULSE 66; TEMP 36.6; O2SAT 99
[2016-12-13 08:26] LABS: BUN/CREATININE RATIO 6.9 (10-20); CREATININE 7.2 mg/dl (0.60-1.40); MAGNESIUM 2.5 mg/dl (1.8-2.4); POTASSIUM 5.2 mmol/L (3.5-5.1)
[2016-12-13 08:29] LABS: CALCIUM 8.8 mg/dl (8.5-10.1)
[2016-12-13] MEDS: NEPHROCAPS PO SCH (08:59)
[2016-12-13] MEDS: ASPIRIN 81 MG ECTAB PO SCH (08:59)
[2016-12-13] MEDS: CLOPIDOGREL BISULFATE 75 MG TAB PO SCH (08:59)
[2016-12-13] MEDS: SEVELAMER HYDROCH 800 MG TAB PO SCH (09:00)
[2016-12-13] MEDS: ISOSORBIDE MONONITRATE 60 MG TABCR PO SCH (09:00)
[2016-12-13] MEDS: PANTOprazole SOD 40 MG TAB PO SCH (09:00)
[2016-12-13] MEDS: METOPROLOL SUCC 50MG EXT REL TAB PO SCH (09:01)
[2016-12-13] MEDS: HEPARIN SOD 5000 UNIT/0.5 ML CARP SQ SCH (09:03)
--- NOTE | 2016-12-13 09:56 | Nephrology Progress Note ---
Nephrology Progress Note Date of Service December 13, 2016. Chief Complaint Follow up evaluation of this patient w/ ESRD admitted with NSTEMI Subjective Mr. Segura was seen & examined in the ICU this morning. He reports chest discomfort when ambulating yesterday morning. His nitrate was increased and by evening he could walk without any chest pain. This morning he denies dyspnea or angina. staffing coordinator had informed him of his mildly elevated serum potassium. Mr. Segura requests a regular diet and indicates that he will avoid high potassium foods. Review of Systems Constitutional: No fever Cardiovascular: No chest pain Respiratory: No dyspnea at rest Abdomen: No nausea, No pain, No vomiting Extremities: No leg edema A complete review of systems was performed. Pertinent positives are noted above. All other systems are negative. Vital Signs Last 8 Hrs Date Time Temp Pulse Resp B/P Pulse Ox O2 Delivery O2 Flow Rate FiO2 12/13/16 08:16 36.6 66 18 123/64 99 Room Air 12/13/16 08:05 Room Air 12/13/16 04:16 Room Air 12/13/16 03:41 36.8 85 16 171/96 96 Room Air I & O 24-Hour Column 12/13/16 08:00 Intake Total 718 ml Balance 718 ml Last Recorded Weight Weight (Kilograms): 59.800 Physical Exam General Appearance: WD/WN, no apparent distress Head: normocephalic, atraumatic Eyes: PERRL, EOMI Neck: no adenopathy Respiratory/Chest: lungs clear Cardiovascular: regular rate, rhythm Abdomen/GI: normal bowel sounds, non tender, soft Extremities/Musculoskelatal: no pedal edema, + pertinent finding (L arm AVF + bruit) Neurologic/Psych: alert, oriented x 3 Family History FH: heart disease Social History Smoking Status: Never smoker Smokeless Tobacco Use: No Alcohol Use: none Drug Use: none Marital Status: Housing Status: lives with family Occupation: employed, disabled Laboratory Results Past 24 Hours 12/13/16 00:00 Red Blood Count 4.36, Mean Corpuscular Volume 89.7, Mean Corpuscular Hemoglobin 29.4, Mean Corpuscular Hemoglobin Concent 32.7, Mean Platelet Volume 10.2, Neutrophils (%) (Auto) 53.2, Lymphocytes (%) (Auto) 35.0, Monocytes (%) (Auto) 7.9, Eosinophils (%) (Auto) 3.2, Basophils (%) (Auto) 0.3, Neutrophils # (Auto) 6.56, Lymphocytes # (Auto) 4.32, Monocytes # (Auto) 0.98, Eosinophils # (Auto) 0.40, Basophils # (Auto) 0.04 12/13/16 00:00 Test 12/13/16 00:00 White Blood Count 12.35 K/uL (4.8-10.8) Red Blood Count 4.36 M/uL (4.7-6.1) Hemoglobin 12.8 g/dL (14.0-18.0) Hematocrit 39.1 % (42-52) Mean Corpuscular Volume 89.7 fL (80-100) Mean Corpuscular Hemoglobin 29.4 pg (25-34) Mean Corpuscular Hemoglobin Concent 32.7 g/dl (32-36) Platelet Count 381 K/uL (130-400) Mean Platelet Volume 10.2 fL (7.4-10.4) Neutrophils (%) (Auto) 53.2 % Lymphocytes (%) (Auto) 35.0 % Monocytes (%) (Auto) 7.9 % Eosinophils (%) (Auto) 3.2 % Basophils (%) (Auto) 0.3 % Neutrophils # (Auto) 6.56 K/uL (1.4-6.5) Lymphocytes # (Auto) 4.32 K/uL (1.2-3.4) Monocytes # (Auto) 0.98 K/uL (0.11-0.59) Eosinophils # (Auto) 0.40 K/uL (0-0.5) Basophils # (Auto) 0.04 K/uL (0-0.2) RDW Standard Deviation 62.3 fL (36.4-46.3) RDW Coefficient of Variation 19.3 % (11.5-14.5) Immature Granulocyte % (Auto) 0.4 % Immature Granulocyte # (Auto) 0.05 K/uL (0.00-0.02) Target Cells 1+ Carter-Durand Bodies 1+ Prothrombin Time 10.7 SECONDS (9.0-12.0) Prothromb Time International Ratio 1.0 (0.9-1.1) Activated Partial Thromboplast Time 30.5 SECONDS (21.0-31.0) Partial Thromboplastin Ratio 1.2 Anion Gap 11.0 mmol/L (3-11) Est Creatinine Clear Calc Drug Dose 10.4 ml/min Estimated GFR () 9.3 Estimated GFR (Non- 8.0 BUN/Creatinine Ratio 6.9 (10-20) Calcium Level 8.8 mg/dl (8.5-10.1) Magnesium Level 2.5 mg/dl (1.8-2.4) Allergies Coded Allergies: POLLEN (Verified Allergy, Unknown, "HAYFEVER", 11/18/16) Diazoxide (Verified Adverse Reaction, Intermediate, ELEVATE BP;N&V, ) NSAIDs (Verified Adverse Reaction, Unknown, KIDNEY TRANSPLANT, 11/18/16) Medications Current Inpatient Medications Medications (Trade) Dose Ordered Sig/Amanda Route Start Time Stop Time Status Last Admin Dose Admin Acetaminophen (Tylenol Tab) 650 mg Q4H PRN PO 12/11/16 06:45 01/10/17 06:44 Lorazepam (Ativan Inj) 0.5 mg Q4H PRN IV 12/11/16 06:45 01/10/17 06:44 12/13/16 02:30 0.5 MG Morphine Sulfate (MoRPHine SULFATE INJ) 2 mg Q2H PRN IV 12/11/16 06:45 12/25/16 06:44 12/12/16 11:24 2 MG Aspirin (Ecotrin Tab) 81 mg DAILY PO 12/11/16 09:00 01/10/17 08:59 12/13/16 08:59 81 MG Atorvastatin Calcium (Lipitor Tab) 20 mg HS PO 12/11/16 21:00 01/10/17 20:59 12/12/16 20:33 20 MG Clopidogrel Bisulfate (plAVix TAB) 75 mg DAILY PO 12/11/16 09:00 01/10/17 08:59 12/13/16 08:59 75 MG Menthol (Nice Claudia) 1 claudia TID PRN PO 12/11/16 06:45 01/10/17 06:44 Oxycodone HCl (Roxicodone Immediate Rel Tab) 5 mg Q4H PRN PO 12/11/16 06:45 12/25/16 06:44 12/12/16 11:13 5 MG Pantoprazole Sodium (Protonix Tab) 40 mg DAILY PO 12/11/16 09:00 01/10/17 08:59 12/13/16 09:00 40 MG Prednisone (PredniSONE TAB) 10 mg DAILY PO 12/11/16 09:00 01/10/17 08:59 12/13/16 09:00 10 MG Vitamin B Complex/ Vit C/Folic Acid (Nephrocaps) 1 cap DAILY PO 12/11/16 09:00 01/10/17 08:59 12/13/16 08:59 1 CAP Miscellaneous Information (Order Awaiting Action) 1 ea QS N/A 12/11/16 08:00 01/10/17 07:59 Sevelamer HCl (Renagel Tab) 1,600 mg TIDM PO 12/11/16 07:45 01/10/17 07:44 12/13/16 09:00 1,600 MG Metoprolol Succinate (Toprol Xl Tab) 50 mg BID PO 12/11/16 09:00 01/10/17 08:59 12/13/16 09:01 50 MG Calcitriol (Rocaltrol Cap) 0.5 mcg MoWeFr@0900 PO 12/11/16 10:30 01/10/17 10:29 12/11/16 11:26 0.5 MCG Ondansetron HCl (Zofran Inj) 4 mg Q6H PRN IV 12/12/16 01:30 01/11/17 01:29 12/12/16 01:49 4 MG Nitroglycerin (Nitrostat Tab) 0.4 mg PRN PRN SL 12/12/16 11:30 01/11/17 11:29 12/12/16 11:26 0.4 MG Isosorbide Mononitrate (Imdur Ext Rel Tab) 60 mg BID PO 12/12/16 21:00 01/11/17 20:59 12/13/16 09:00 60 MG Heparin Sodium (Porcine) (Heparin Sq 5000 Unit/0.5ml) 5,000 unit Q12 SQ 12/12/16 21:00 01/11/17 20:59 12/13/16 09:03 5,000 UNIT Impression (1) End-stage renal disease on hemodialysis (2) Elevated troponin (3) Hx of CABG (4) History of renal transplant Mr. Segura is a 50-year-old male w/ ESRD requiring IHD admitted due to NSTEMI. History of prior renal transplant x 3. Now off all immunosuppression. Patient has h/o ASCVD s/p CABG, hyperlipidemia, HTN, PVD and is s/p splenectomy and cholecystectomy. Recommendations END STAGE RENAL DISEASE: -- Volume status is acceptable. Serum potassium is mildly elevated. Patient will avoid high potassium food today -- Orders placed in EMR for HD tomorrow am HYPERTENSION: -- Blood pressure has improved. Imdur has been increased to 60 mg BID ANEMIA: -- Hgb above target range of 10 - 11. No acute indication for RANDY at this time CV: -- Admitted w/ NSTEMI. Currently CP free. Cardiology recommendations reviewed this am. Medical management is being provided -- Await further Cardiology input
[2016-12-13] MEDS ORDERED: IMDSR60 PO (11:26)
--- NOTE | 2016-12-13 11:27 | Discharge Instructions ---
Discharge Instructions Date of Service December 13, 2016. Admission Reason for Admission: Elevated Troponin, Unstable Angina Discharge Discharge Diagnosis / Problem: non st elevated MN Discharge Goals Goal(s): Diagnostic testing, Therapeutic intervention Activity Recommendations Activity Limitations: resume your previous activity . Instructions / Follow-Up Instructions / Follow-Up Home Care: * Take your medications exactly as directed. Don't skip doses. * Remember that recovery after a heart attack takes time. Plan to rest for at lease 4-8 weeks while you recover. Then return to normal activity when your doctor says it's okay. * Ask your doctor about joining a heart rehabilitation program. * Tell your doctor if you are feeling depressed. Feelings of sadness are common after a heart attack, but it is important that you speak to someone if you are feeling overwhelmed by these feelings. * If you are having chest pain, call 911 for an ambulance. Do NOT drive yourself to the hospital. * Ask your family members to learn CPR. * Learn to take your own blood pressure and pulse. Keep a record of your results. Ask your doctor when you should seek emergency medical attention. He or she will tell you which blood pressure reading is dangerous. Lifestyle Changes: * Maintain a healthy weight. Get help to lose any extra pounds. * Cut back on salt. * Limit canned, dried, packaged, and fast foods. * Don't add salt to your food. * Season foods with herbs instead of salt when you cook. * Break the smoking habit. Enroll in a stop-smoking program to improve your chances of success. * Limit fatty foods. * Check your lipid levels regularly. (Your doctor can show you how to do this.) * Build up your activity according to your doctor's recommendation. * Ask your doctor when it's okay to resume sexual activity. * Tell your doctor about any erectile dysfunction (ED) medication you are taking. Some ED medications are not safe if you take certain heart medications. * Try to manage stress. Follow Up: It is important for you to keep your follow up appointments with your medical provider. Current Hospital Diet Patient's current hospital diet: Regular Diet Discharge Diet Recommended Diet: Renal Diet Pending Studies Studies pending at discharge: no Medical Emergencies . Who to Call and When: Medical Emergencies: If at any time you feel your situation is an emergency, please call 911 immediately. Call 911 immediately or go to your nearest Emergency Room if you experience any of the following: Warning Signs and Symptoms of a Heart Attack * Chest pain that is not relieved by medication * Shortness of breath . Non-Emergent Contact Non-Emergency issues call your: Steward/Stewardess Third Call Non-Emergent contact if: temperature is above 101, your pain is unusual for you . . "Provider Documentation" section prepared by Saleem Pollack. . AMI Core Measures Reason no ASA as I/P: Treatment provided - N/A Reason no ASA at D/C: Treatment provided - N/A Reason no statin as I/P: Treatment provided - N/A Reason no statin at D/C: Treatment provided - N/A VTE Core Measure Inpt VTE Proph given/why not?: Unfractionated heparin SQ, T.E.D. Stockings, SCD 's
[2016-12-13 12:29] VITALS: BP 146/84; PULSE 72; TEMP 36.5; O2SAT 96
--- NOTE | 2016-12-13 15:33 | Progress Note ---
Subjective Date of Service: December 13, 2016. Problem List Medical Problems: (1) Atrial flutter with rapid ventricular response Status: Acute (2) Chest pain Status: Acute (3) Chest pain Status: Acute (4) Chest pain Status: Acute (5) Elevated troponin Status: Acute (6) Elevated troponin Status: Acute (7) End stage renal disease Status: Acute (8) ESRD (end stage renal disease) Status: Acute (9) GI bleed Status: Acute (10) Hyperbilirubinemia Status: Acute (11) Lower GI bleeding Status: Acute (12) Peptic ulcer disease Status: Acute (13) Precordial chest pain Status: Acute (14) RUQ abdominal pain Status: Acute (15) Sepsis Status: Acute (16) Sepsis Status: Acute (17) Substernal precordial chest pain Status: Acute (18) Unstable angina Status: Acute (19) Upper abdominal pain Status: Acute (20) Wrist pain, left Status: Acute Social History Problems: (1) H/O splenectomy Status: Acute Objective Vital Signs Date Time Temp Pulse Resp B/P Pulse Ox O2 Delivery O2 Flow Rate FiO2 12/13/16 04:16 Room Air 12/13/16 03:41 36.8 85 16 171/96 96 Room Air 12/13/16 00:13 36.7 66 20 124/68 97 Room Air 12/13/16 00:02 Room Air 12/12/16 20:00 Room Air 12/12/16 19:05 37.1 73 20 152/87 96 Room Air 12/12/16 16:00 Room Air 12/12/16 14:41 36.7 76 17 96 12/12/16 12:25 76 17 154/90 96 12/12/16 12:00 Room Air 12/12/16 11:31 78 17 161/88 12/12/16 11:15 80 26 153/94 12/12/16 11:08 36.7 76 18 175/92 97 Room Air 12/12/16 10:00 76 20 165/95 95 Room Air 12/12/16 08:03 36.7 82 18 139/76 92 Room Air 12/12/16 08:00 Room Air Laboratory Results Last 24 Hours Test 12/13/16 00:00 Assessment and Plan 51 M with known CAD and previous cabg who presents with chest pain recent reduction in nitrates Unstable angina/ACS/CAD s/p CAGB and stent placement: Had exertional CP 12/12, cardiology discusses cath, reports pt reluctant, recommend continue ASA 81 mg daily, Plavix 75 mg daily, Increased Isosorbide mononitrate ER 60 mg to bid, and continue Metoprolol succinate ER 50 mg BID, do not recommend ranexa at this time, will discuss with Dr Molina ESRD, stable s/p transplant x3, on hemodialysis MWF: - Nephrology consulted to coordinated dialysis inpatient - Renvela 1600 mg TID, Sensipar 30 mg QAM, Prednisone increased from 5 mg to 10 mg daily Hypercholesterolemia: Atorvastatin 20 mg HS DVT Prophylaxis: Heparin change to sc Documented By: Saleem Pollack
--- NOTE | 2016-12-13 15:47 | Discharge Summary ---
Discharge Summary Date of Service December 13, 2016. Discharge Summary Admission Date: December 11, 2016 at 06:37 Discharge Date: December 13, 2016 Discharge Disposition: Home Principal Diagnosis: nstemi, esrd Immunizations: Have You Had Influenza Vaccine: No Influenza Vaccine Date: May 03, 2008 History of Tetanus Vaccine?: Unknown Tetanus Immunization Date: Oct 06, 2000 History of Pneumococcal: No Pneumococcal Date: Oct 06, 2005 History of Hepatitis B Vaccine: Unknown Hepatitis Immunization Date: Oct 06, 2000 Consultations: Dr Espinal, Dr Caldwell Medication Reconciliation New Medications: Isosorbide Mononitrate (Isosorbide Mononitrate ER) 60 Mg Tab 60 MG PO BID, #60 TAB 6 Refills Continued Medications: Aspirin (Aspirin Ec) 81 Mg Tab 81 MG PO DAILY Atorvastatin (Atorvastatin Calcium) 20 Mg Tab 20 MG PO HS, #90 Cinacalcet Hydrochloride (Sensipar) 30 Mg Tab 30 MG PO QAM, #90 Clopidogrel Bisulfate (Clopidogrel) 75 Mg Tab 75 MG PO DAILY Menthol (Ricola) 24 Kristi/1 Box Lozg 1 KRISTI PO TID PRN for SORE THROAT for 5 Days Metoprolol Succinate (Metoprolol Succinate ER) 100 Mg Tabcr 50 MG PO BID Nitroglycerin (Nitrostat) 0.4 Mg Tab 0.4 MG UT PRN, BTL NEEDED FOR CHEST PAIN : ONE TABLET UNDER THE TONGUE EVERY 5 MINUTES UP TO 3 DOSES. Oxycodone Ir (Roxicodone Ir) 5 Mg Tab 5 MG PO Q4H PRN for Severe Pain, TAB Pantoprazole (Pantoprazole Sodium) 40 Mg Tab 40 MG PO DAILY, #60 Prednisone (Prednisone) 5 Mg Tab 5 MG PO DAILY, TAB Sevelamer Carbonate (Renvela) 800 Mg Tab 1600 MG PO TID for 90 Days, #540 TAB Vitamin B Cmplx/Vitc/Folic Ac (Nephrocaps) Cap 1 CAP PO DAILY, CAP Vitamin E (Vitamin E) 400 Unit Tab 400 UNIT PO DAILY Discontinued Medications: Isosorbide Mononitrate (Isosorbide Mononitrate ER) 30 Mg Tabcr 60 MG PO HS Discharge Exam Review of Systems: Constitutional: No chills, No fever Respiratory: No cough Cardiovascular: No PND, No chest pain, No orthopnea Abdomen: No nausea, No pain, No vomiting Physical Exam: General Appearance: WD/WN, no apparent distress Neck: supple, no JVD Respiratory/Chest: chest non-tender, lungs clear, normal breath sounds Cardiovascular: regular rate, rhythm, no murmur Abdomen / GI: normal bowel sounds, non tender, soft Hospital Course 51 M with known CAD and previous cabg who presents with chest pain recent reduction in nitrates Unstable angina/ACS/CAD s/p CAGB and stent placement: Had exertional CP 12/12, cardiology discusses cath, reports pt reluctant, recommend continue ASA 81 mg daily, Plavix 75 mg daily, Increased Isosorbide mononitrate ER 60 mg to bid, and continue Metoprolol succinate ER 50 mg BID, do not recommend ranexa at this time, will discuss with Dr Molina at next office appointment ESRD, stable s/p transplant x3, on hemodialysis MWF: - Nephrology consulted to coordinated dialysis inpatient - Renvela 1600 mg TID, Sensipar 30 mg QAM, Prednisone increased from 5 mg to 10 mg daily Hypercholesterolemia: Atorvastatin 20 mg HS DVT Prophylaxis: Heparin change to sc Documented By: Saleem Pollack Total Time Spent: Greater than 30 minutes This includes examination of the patient, discharge planning, medication reconciliation, and communication with other providers. Discharge Instructions Please refer to the electronic Patient Visit Report (Discharge Instructions) for additional information. Additional Copies To James Molina M.D.
[2016-12-14] MEDS ORDERED: HEPARIN SOD (PORCINE) 1000 UNIT/ML 10 ML VIAL IV SCH (06:00)
[2017-06-24] MEDS ORDERED: PANT40TA PO (12:41)
== END 2016-12-13 12:50 | disposition home or self-care (01) | DRG 280 ==
LOC: ENRESERVDT → ENRESERVTM → C.EDB 05:12 → C.MSICU 06:37 → C.2E 12-12 14:52
PROVIDERS: ADMIT Hospitalist; ATTEND Internal Medicine
DX: I21.4 Non-ST elevation (NSTEMI) myocardial infarction (principal); N18.6 End stage renal disease; Z94.0 Kidney transplant status; I12.0 Hypertensive chronic kidney disease with stage 5 chronic kidney disease or end stage renal disease; I25.10 Atherosclerotic heart disease of native coronary artery without angina pectoris; I25.5 Ischemic cardiomyopathy; K21.9 Gastro-esophageal reflux disease without esophagitis; E78.00 Pure hypercholesterolemia, unspecified; Z79.52 Long term (current) use of systemic steroids; Z95.1 Presence of aortocoronary bypass graft; Z99.2 Dependence on renal dialysis; I25.2 Old myocardial infarction; Z79.82 Long term (current) use of aspirin

== ENCOUNTER 2017-01-22 21:29 | Emergency (ER) | payer OTHER ==
[~2017-01-22] VITALS: Ht 165.1 cm; Wt 61.0 kg
[~2017-01-22 21:29] MED LIST changes: -HYDR-5688 PO; -IMDSR30 PO; +IMDSR60 PO; +NTRGSL/4 UT; +OXYC1TAB3 PO; -PANT40TA2 PO; +PRT/40 PO
[2017-01-22 21:32] VITALS: BP 132/84; PULSE 72; TEMP 36.7; O2SAT 95; Ht 165.1 cm; Wt 61.0 kg
[2017-01-22] MEDS ORDERED: OXYMETAZOLINE HCL 0.05% NA SPR 15 ML BTL ONE (21:51)
[2017-01-22] MEDS ORDERED: SILVER NITR/POTASSIUM NITRATE 10 APPLICATOR PACK ONE (22:29)
--- NOTE | 2017-01-23 00:15 | EMERGENCY ROOM VISIT NOTE ---
History Report prepared by Craig: Rc Pierre Under the Supervision of: Yolette RiceO. First contact with patient: 21:42 Chief Complaint: NOSE BLEED (MINOR) Stated Complaint: NOSE BLEED History of Present Illness The patient is a 51 year old male who presents to the Emergency Room with complaints of a persistent nose bleed that started around 1130 this morning. He says that he went to dialysis this morning, and did nothing abnormal today. He went to lunch, and blew his nose, and suddenly he started having a nose bleed. He says that blood has been gushing out today. The patient states that the bleeding has been worse in his left nare. His right nare was bleeding but is now just dried out. He says that he has had to change the packing every 5 minutes. The patient has been getting more nose bleeds recently, but today's nose bleed has been the worst. He says that he is starting to feel nauseous. The patient notes that he has had air conditioning on in his house. He takes Plavix for cardiac issues. He denies any dizziness or lightheadedness. No chest pain or shortness of breath. Does admit to chronic right hip pain. Source of History: patient Onset: Around 1130 this morning Position: nose Symptom Intensity: gushing blood Quality: other (nose bleed) Timing: other (persistent) Associated Symptoms: + nausea Note: No other associated symptoms noted. Review of Systems See HPI for pertinent positives & negatives. A total of 10 systems reviewed and were otherwise negative. Past Medical & Surgical Medical Problems: (1) Abdominal pain (2) Acute H. pylori gastric ulcer (3) Acute respiratory failure (4) Anemia (5) Atrial flutter (6) Bacteremia (7) C. difficile colitis (8) CAD (coronary artery disease) (9) Chronic systolic CHF (congestive heart failure) (10) End-stage renal disease on hemodialysis (11) ESRD (end stage renal disease) on dialysis (12) Fever (13) Gastric mass (14) H. pylori infection (15) HTN (hypertension) (16) Immunosuppression (17) Intractable abdominal pain (18) Leukocytosis (19) Liver cirrhosis (20) UT (myocardial infarction) (21) Postoperative wound infection (22) Secondary hyperparathyroidism of renal origin (23) SIRS (systemic inflammatory response syndrome) (24) Syncope Surgical Problems: (1) History of renal transplant (2) History of renal transplant (3) Hx of CABG Family History FH: heart disease Social History Smoking Status: Never Smoker Alcohol Use: none Drug Use: none Marital Status: Housing Status: lives with significant other Occupation Status: employed, disabled Current/Historical Medications Scheduled Aspirin (Aspirin Ec), 81 MG PO DAILY Atorvastatin (Atorvastatin Calcium), 20 MG PO HS Cinacalcet Hydrochloride (Sensipar), 30 MG PO QAM Clopidogrel Bisulfate (Clopidogrel), 75 MG PO DAILY Isosorbide Mononitrate (Isosorbide Mononitrate ER), 60 MG PO BID Metoprolol Succinate (Metoprolol Succinate ER), 50 MG PO BID Nitroglycerin (Nitrostat), 0.4 MG UT PRN Pantoprazole (Pantoprazole Sodium), 40 MG PO DAILY Prednisone (Prednisone), 5 MG PO DAILY Sevelamer Carbonate (Renvela), 1,600 MG PO TID Vitamin B Cmplx/Vitc/Folic Ac (Nephrocaps), 1 CAP PO DAILY Vitamin E (Vitamin E), 400 UNIT PO DAILY Scheduled PRN Oxycodone Ir (Roxicodone Ir), 5 MG PO Q4H PRN for Severe Pain Allergies Coded Allergies: POLLEN (Verified Allergy, Unknown, "HAYFEVER", 11/18/16) Diazoxide (Verified Adverse Reaction, Intermediate, ELEVATE BP;N&V, ) NSAIDs (Verified Adverse Reaction, Unknown, KIDNEY TRANSPLANT, 11/18/16) Physical Exam Vital Signs Date Time Temp Pulse Resp B/P (MAP) Pulse Ox O2 Delivery O2 Flow Rate FiO2 01/22/17 21:32 36.7 72 18 132/84 95 Room Air Physical Exam GENERAL: sitting up in bed, chronically ill appearing, no acute distress EYE EXAM: normal conjunctiva OROPHARYNX: no exudate, no erythema, lips, buccal mucosa, and tongue normal and mucous membranes are moist NOSE: Small amount of bleeding from left nostril, appears to be from septum but difficult to ascertain, no bleeding from right nostril. NECK: supple, no nuchal rigidity, no adenopathy, non-tender LUNGS: Clear to auscultation. Normal chest wall mechanics HEART: systolic ejection murmur, S1 normal and S2 normal ABDOMEN: abdomen soft, non-tender, normo-active bowel sounds, no masses, no rebound or guarding. UPPER EXTREMITIES: left upper extremity with fistula in place, positive thrill and bruit NEURO EXAM: Normal sensorium. Medical Decision & Procedures Procedure NOSE CAUTERIZATION: Cauterization of left septum, small amount of venous oozing appreciated. ED Course ED COURSE: Vital signs were reviewed and showed hypertensive vitals. The patients medical record was reviewed The above diagnostic studies were performed and reviewed. ED treatments and interventions as stated above. 2149: The patient was evaluated in room C10. A complete history and physical examination was performed. 5: I cauterized the patient and he has no bleeding. He says that his hip has been bothering him for a while, and is actually improving, so he does not want an x-ray. I discussed my findings with the patient and he understands and agrees with the treatment plan. Based on the patients age, coexisting illnesses, exam and lab findings the decision to treat as an outpatient was made. The patient remained stable while under my care. The patient appeared well at the time of discharge. Medical Decision Differential diagnosis: Etiologies such as anterior epistaxis, coagulopathy, traumatic injury, fracture , septal hematoma, posterior epistaxis as well as other pathologies were entertained. Blood Pressure Screening: The patient was found to have a slightly elevated blood pressure due to circumstances. I do not believe that the patient requires hypertension monitoring. Medication Reconciliation: I attest that I have personally reviewed the patient' s current medication list. Patient is a 51-year-old male on dialysis taking Plavix at presents the ER for intermittent left nosebleed today. He notes it started after blowing his nose. He was initially packed with cotton balls soaked with Afrin. This allowed better visualization of the septum which showed mild venous oozing. Cauterization was performed. Patient remained stable in the ER for 20 minutes following this. He was discharged to follow-up with ENT as an outpatient. Discussed with Pt concerning signs and symptoms to watch out for. Pt was instructed to follow up with their PCP and discussed with the patient their option to return to the ED at anytime for persistent or worsening symptoms. The appropriate anticipatory guidance and out-patient management, including indications for return to the emergency department, were explained at length to the patient and understood. Impression Primary Impression: Epistaxis Scribe Attestation The scribe's documentation has been prepared under my direction and personally reviewed by me in its entirety. I confirm that the note above accurately reflects all work, treatment, procedures, and medical decision making performed by me. Departure Information Dispostion Home / Self-Care Referrals Todd Azevedo M.D. (PCP) Forms HOME CARE DOCUMENTATION FORM, IMPORTANT VISIT INFORMATION, WORK / SCHOOL INSTRUCTIONS Patient Instructions ED Nosebleed, My [facility] Additional Instructions Please follow up with your primary care doctor with in the next 24 hours. Any worsening of your symptoms, please return to the ED immediately. This includes recurrent bleeding which doesn't stop with pressure following 15 minutes, dizziness, lightheadedness, weakness or any other concerning signs or symptoms from your standpoint. If the bleeding recurs please sprain to squeeze his of Afrin in nostril and apply clamp for 15 minutes. If bleeding does not stop following this please return to the ER for packing.
== END 2017-01-22 22:48 | disposition home or self-care (01) ==
LOC: C.EDB 21:30 → C.EDC 22:48
DX: R04.0 Epistaxis (principal); J96.00 Acute respiratory failure, unspecified whether with hypoxia or hypercapnia; D64.9 Anemia, unspecified; I48.92 Unspecified atrial flutter; A04.7 Enterocolitis due to Clostridium difficile; I25.10 Atherosclerotic heart disease of native coronary artery without angina pectoris; I50.9 Heart failure, unspecified; N18.6 End stage renal disease; Z99.2 Dependence on renal dialysis; I10 Essential (primary) hypertension; I21.3 ST elevation (STEMI) myocardial infarction of unspecified site; Z82.49 Family history of ischemic heart disease and other diseases of the circulatory system; Z79.82 Long term (current) use of aspirin

== ENCOUNTER 2017-02-19 10:45 | Inpatient (IN) | payer OTHER ==
[2017-02-19] VITALS (48 sets, daily range): BP systolic 100–168; BP diastolic 51–91; PULSE 77–90; TEMP 36.7–36.8; O2SAT 90–100; Ht 167.6 cm; Wt 60.9 kg
[~2017-02-19] VITALS: Ht 167.6 cm; Wt 60.9 kg
[~2017-02-19 10:45] MED LIST changes: -CPC PO
[2017-02-19] MEDS ORDERED: SODIUM CHLORIDE 0.9% 1000ML 1,000 ML IV STA (10:58)
[2017-02-19] MEDS ORDERED: ASPIRIN 324 MG CHEW PO STA (10:58)
[2017-02-19] MEDS ORDERED: FENTANYL CITRATE INJ 50 MCG/1 ML 2 ML VIAL IV STA (10:58)
[2017-02-19] MEDS ORDERED: NiCARDipine HCL INJ 2.5 MG/ML 10 ML AMP ONE (10:59)
[2017-02-19] MEDS ORDERED: HEPARIN SOD (PORCINE) 1000 UNIT/ML 10 ML VIAL ONE (10:59)
[2017-02-19] MEDS ORDERED: NITROGLYCERIN/D5W 100MCG/ML 20ML SYR ONE (10:59)
[2017-02-19] MEDS ORDERED: FENTANYL CITRATE INJ 50 MCG/1 ML 2 ML VIAL ONE (10:59)
[2017-02-19] MEDS ORDERED: MIDAZOLAM HCL 1 MG/ML 2ML VIAL ONE (10:59)
[2017-02-19] MEDS: NITROGLYCERIN 0.4 MG SL PER TAB CHARGE SL PRN ×2 (11:06→12:09)
[2017-02-19 11:26] LABS: BASO % 0.4 %; BASO ABS # 0.04 K/uL (0-0.2); HEMATOCRIT 25.3 % (42-52); IG% 0.4 %; LYMPH ABS # 4.25 K/uL (1.2-3.4); MEAN CORPUSCULAR HEMOGLOBIN 35.2 pg (25-34); MEAN CORPUSCULAR HGB CONC 35.2 g/dl (32-36); MONO % 13.3 %; NEUT % 44.9 %; PLATELET COUNT 324 K/uL (130-400); RED BLOOD COUNT 2.53 M/uL (4.7-6.1); WHITE BLOOD COUNT 11.19 K/uL (4.8-10.8)
--- NOTE | 2017-02-19 11:32 | EMERGENCY ROOM VISIT NOTE ---
History Report prepared by Craig: Román Siddiqui Under the Supervision of: Dr. Yonathan Vences M.D. First contact with patient: 10:54 Chief Complaint: CHEST PAIN Stated Complaint: CHEST PAIN History of Present Illness The patient is a 51 year old male who presents to the Emergency Room with complaints of constant left chest pain starting this morning. The patient states that he was at dialysis, and he started to have chest pain. The patient states he is additionally having some nausea, and these symptoms are similar to his last heart attack. He additionally states that he had a CABG in 2005. CP across upper chest to shoulders. Nothing makes better nor worse. No medications [employer]. Denies symptoms prior to this other than when here last month for NSTEMI. No cath recently nor interventions. Source of History: patient Onset: this morning Position: chest (left) Timing: constant Associated Symptoms: + nausea Review of Systems See HPI for pertinent positives & negatives. A total of 10 systems reviewed and were otherwise negative. Past Medical & Surgical Medical Problems: (1) Abdominal pain (2) Acute H. pylori gastric ulcer (3) Acute respiratory failure (4) Anemia (5) Atrial flutter (6) Bacteremia (7) C. difficile colitis (8) CAD (coronary artery disease) (9) Chronic systolic CHF (congestive heart failure) (10) End-stage renal disease on hemodialysis (11) ESRD (end stage renal disease) on dialysis (12) Fever (13) Gastric mass (14) H. pylori infection (15) HTN (hypertension) (16) Immunosuppression (17) Intractable abdominal pain (18) Leukocytosis (19) Liver cirrhosis (20) ND (myocardial infarction) (21) NSTEMI (non-ST elevated myocardial infarction) (22) Postoperative wound infection (23) Secondary hyperparathyroidism of renal origin (24) SIRS (systemic inflammatory response syndrome) (25) Syncope Surgical Problems: (1) History of renal transplant (2) History of renal transplant (3) Hx of CABG Family History FH: heart disease Social History Smoking Status: Never Smoker Alcohol Use: none Drug Use: none Marital Status: Housing Status: lives with significant other Occupation Status: employed, disabled Current/Historical Medications Scheduled Aspirin (Aspirin Ec), 81 MG PO DAILY Atorvastatin (Atorvastatin Calcium), 20 MG PO HS Cinacalcet Hydrochloride (Sensipar), 30 MG PO QAM Clopidogrel Bisulfate (Clopidogrel), 75 MG PO DAILY Isosorbide Mononitrate (Isosorbide Mononitrate ER), 60 MG PO BID Metoprolol Succinate (Metoprolol Succinate ER), 50 MG PO BID Mupirocin (Bactroban 2% Oint), 1 APPLN JENN BID Nitroglycerin (Nitrostat), 0.4 MG UT PRN Pantoprazole (Pantoprazole Sodium), 40 MG PO DAILY Prednisone (Prednisone), 5 MG PO DAILY Sevelamer Carbonate (Renvela), 1,600 MG PO TID Vitamin B Cmplx/Vitc/Folic Ac (Nephrocaps), 1 CAP PO DAILY Vitamin E (Vitamin E), 400 UNIT PO DAILY Scheduled PRN Oxycodone Ir (Roxicodone Ir), 5 MG PO Q4H PRN for Severe Pain Allergies Coded Allergies: POLLEN (Verified Allergy, Unknown, "HAYFEVER", 02/19/17) Diazoxide (Verified Adverse Reaction, Intermediate, ELEVATE BP;N&V, ) NSAIDs (Verified Adverse Reaction, Unknown, KIDNEY TRANSPLANT, 02/19/17) Physical Exam Vital Signs Date Time Temp Pulse Resp B/P (MAP) Pulse Ox O2 Delivery O2 Flow Rate FiO2 02/19/17 12:06 84 35 98 02/19/17 12:02 112/64 02/19/17 12:01 81 37 98 02/19/17 11:56 85 26 95 02/19/17 11:51 87 26 127/72 95 02/19/17 11:46 86 30 97 02/19/17 11:41 84 27 104/70 98 02/19/17 11:36 84 32 100 02/19/17 11:31 118/67 02/19/17 11:25 85 31 97 02/19/17 11:21 112/68 02/19/17 11:15 89 25 99 02/19/17 11:11 114/74 02/19/17 11:09 98/66 02/19/17 11:05 90 02/19/17 11:01 90 02/19/17 10:48 36.7 89 18 121/76 99 Room Air Physical Exam GENERAL: Patient is chronically unwell appearing in moderate distress. Anxious appearing. HEENT: No acute trauma, normocephalic atraumatic, mucous membranes moist, no nasal congestion, no scleral icterus. NECK: No stridor, no adenopathy, no meningismus, trachea is midline. LUNGS: No dyspnea. Clear to auscultation and equal bilaterally. No wheeze, no rhonchi. HEART: Regular rate and rhythm. No murmurs, rubs, gallops appreciated. ABDOMEN: Soft, nontender, bowel sounds positive, no masses appreciated, no peritonitis. BACK: No midline tenderness, no CVA tenderness EXTREMITIES: Fistula in the left arm. Normal motion all extremities, no cyanosis , no edema. NEUROLOGIC: Alert and oriented, no acute motor or sensory deficits, no focal weakness, cranial nerves grossly intact. SKIN: Surgical scars of the anterior chest and abdomen. No rash, no jaundice, no diaphoresis. Medical Decision & Procedures ER Provider Diagnostic Interpretation: X ray results are stated below per my interpretation and the radiologist's interpretation. CHEST ONE VIEW PORTABLE CLINICAL HISTORY: 51 years-old Male presenting with Chest Pain. TECHNIQUE: Portable upright AP view of the chest was obtained. COMPARISON: 12/13/2016. FINDINGS: Median sternotomy wires and mediastinal surgical clips remain in place. Surgical clips also noted in the epigastrium. Atherosclerosis of the aortic arch. Cardiac silhouette remains enlarged. Lungs clear. Minimal blunting of the right costophrenic angle, some possibly trace right effusion. No pneumothorax. Sclerotic lesion in the left humeral head with possibly stippled calcification, which may indicate a chondroid lesion. Upper abdomen with suggestion of gastric distention. IMPRESSION: 1. Cardiomegaly without evidence of cristino pulmonary edema. 2. Trace right effusion. Electronically signed by: Torey Gutierrez M.D. 02/19/2017 11:32 AM Dictated Date/Time: 02/19/2017 11:30 AM Laboratory Results 02/19/17 11:15 Red Blood Count 2.53, Mean Corpuscular Volume 100.0, Mean Corpuscular Hemoglobin 35.2, Mean Corpuscular Hemoglobin Concent 35.2, Mean Platelet Volume 10.0, Neutrophils (%) (Auto) 44.9, Lymphocytes (%) (Auto) 38.0, Monocytes (%) ( Auto) 13.3, Eosinophils (%) (Auto) 3.0, Basophils (%) (Auto) 0.4, Neutrophils # (Auto) 5.03, Lymphocytes # (Auto) 4.25, Monocytes # (Auto) 1.49, Eosinophils # ( Auto) 0.34, Basophils # (Auto) 0.04 02/19/17 11:15 Test 02/19/17 11:10 02/19/17 11:15 Bedside Troponin I 0.050 ng/ml (0-0.045) White Blood Count 11.19 K/uL (4.8-10.8) Red Blood Count 2.53 M/uL (4.7-6.1) Hemoglobin 8.9 g/dL (14.0-18.0) Hematocrit 25.3 % (42-52) Mean Corpuscular Volume 100.0 fL (80-100) Mean Corpuscular Hemoglobin 35.2 pg (25-34) Mean Corpuscular Hemoglobin Concent 35.2 g/dl (32-36) Platelet Count 324 K/uL (130-400) Mean Platelet Volume 10.0 fL (7.4-10.4) Neutrophils (%) (Auto) 44.9 % Lymphocytes (%) (Auto) 38.0 % Monocytes (%) (Auto) 13.3 % Eosinophils (%) (Auto) 3.0 % Basophils (%) (Auto) 0.4 % Neutrophils # (Auto) 5.03 K/uL (1.4-6.5) Lymphocytes # (Auto) 4.25 K/uL (1.2-3.4) Monocytes # (Auto) 1.49 K/uL (0.11-0.59) Eosinophils # (Auto) 0.34 K/uL (0-0.5) Basophils # (Auto) 0.04 K/uL (0-0.2) Bedside Hemoglobin 8.8 g/dl (14.0-18.0) Bedside Hematocrit 26 % (42-52) RDW Standard Deviation 63.4 fL (36.4-46.3) RDW Coefficient of Variation 17.9 % (11.5-14.5) Immature Granulocyte % (Auto) 0.4 % Immature Granulocyte # (Auto) 0.04 K/uL (0.00-0.02) Macrocytosis PRESENT Pappenheimer Bodies 1+ Carter-De Pue Bodies 1+ Prothrombin Time 11.7 SECONDS (9.0-12.0) Prothromb Time International Ratio 1.1 (0.9-1.1) Activated Partial Thromboplast Time 30.5 SECONDS (21.0-31.0) Partial Thromboplastin Ratio 1.2 Bedside Sodium 138 mEq/L (135-144) Bedside Potassium 3.3 mEq/L (3.3-5.0) Bedside Chloride 94 mEq/L (101-112) Bedside Total CO2 31 mEq/l (24-31) Anion Gap 18.0 mmol/L (16-25) Bedside Blood Urea Nitrogen 19 mg/dl (7-18) Bedside Creatinine 2.7 mg/dl (0.6-1.3) Est Creatinine Clear Calc Drug Dose 28.7 ml/min Estimated GFR () 30.5 Estimated GFR (Non- 26.3 BUN/Creatinine Ratio 7.0 (10-20) Bedside Glucose (other) 101 mg/dl (70-99) Calcium Level 8.4 mg/dl (8.5-10.1) Bedside Ionized Calcium (Bertha) 0.97 mmol/l (1.12-1.32) Total Creatine Kinase 47 U/L (39-308) Creatine Kinase MB 1.2 ng/ml (0.5-3.6) Creatine Kinase MB Ratio 2.6 (0-3.0) Troponin I 0.060 ng/ml (0-0.045) Triglycerides Level 120 mg/dl (0-150) Cholesterol Level 70 mg/dl (0-200) HDL Cholesterol 29 mg/dl LDL Cholesterol, Calculated 17 mg/dl VLDL Cholesterol, Calculated 24 mg/dl Cholesterol/HDL Ratio 2.4 Laboratory results as reviewed by me. Medications Administered Medications (Trade) Dose Ordered Sig/Amanda Route Start Time Stop Time Status Last Admin Dose Admin Fentanyl Citrate (Fentanyl Inj) 50 mcg NOW STAT IV 02/19/17 10:58 02/19/17 11:00 DC 02/19/17 11:05 50 MCG Sodium Chloride 1,000 ml @ 75 mls/hr [id number] STAT IV 02/19/17 10:58 02/19/17 13:18 DC 02/19/17 11:06 75 MLS/HR Nitroglycerin (Nitrostat Tab) 0.4 mg PRN PRN SL 02/19/17 11:00 02/19/17 13:18 DC 02/19/17 12:09 0.4 MG Aspirin (Aspirin Chew) 324 mg NOW STAT PO 02/19/17 10:58 02/19/17 11:00 DC 02/19/17 11:06 324 MG Nitroglycerin/ Dextrose (Nitroglycerin/ D5w 100 Mcg/Ml 20ML SYRINGE) 2,000 mcg STK-MED ONCE .ROUTE 02/19/17 10:59 02/19/17 11:00 DC 02/19/17 13:53 2,000 MCG Heparin Sodium/ Dextrose 500 ml @ 15 mls/hr Q24H PRN IV 02/19/17 11:45 02/19/17 13:39 DC 02/19/17 12:14 15 MLS/HR Heparin Sodium (Porcine) (Heparin Sq 5000 Unit/0.5ml) 4,000 unit NOW ONCE IV 02/19/17 11:45 02/19/17 11:46 DC 02/19/17 12:15 4,000 UNIT ECG Indication: chest pain Rate (beats per minute): 84 Rhythm: normal sinus Findings: PAC, ST depression (Anterior), other (QTC 510) Comparison ECG Date: 12/13/16 Change: Deep T waves significantly increased. ED Course 1054: The patient was evaluated in room C9. A complete history and physical exam was performed. 1056: Heart Alert was called for the patient. 1058: Aspirin 324mg PO, Sodium Chloride 1000 ml @ 75 mls/hr IV, Fentanyl Inj 50mcg IV 1059: Nitroglycerine/ Dextrose 2000mcg IV, Heparin Sodium/ Sodium Chloride 3000 units IV, Fentanyl Inj 100mcg IV, Versed Inj 2mg IV, Heparin IV Bolus [id number] IV, Brad 25mg IV 1100: Nitrostat Tab 0.4mg SL 1104: I discussed the patient's case with Dr. Espinal. He evaluated the patient, and he agrees that the patient is likely having a cardiac event, but given his complex history and severe coronary artery disease, and the previous knowledge of the patient, he suggests treating the patient medically first. 1122: I reevaluated the patient, and his pain has gone away. 1126: I reassessed the patient, and he notes that he had a very heavy nose bleed last week. I also asked nursing to obtain two IV's on the patient. 1135: I discussed the patient's case with Dr. Kendall, Hospitalist. He is going to evaluate the patient for further treatment. 1145: Heparin Sq 5000 Unit/ 0.5ml 4000 units IV, Heparin Sodium/ Dextrose 500ml @ 15mls/hr IV Medical Decision Differential: Cardiac Ischemia (STEMI, NSTEMI, Unstable Angina, etc), Aortic Dissection, Arrhythmia, Pulmonary Embolism, Pneumonia, Pneumothorax, MSK, Infectious, Pericarditis/Myocarditis, Esophageal Rupture, Gastrointestinal, amongst other pathologies entertained. 51 yr old male with complex PMH and recent admission for NSTEMI though attempt at med management was goal. Arrives with acute chest pain across anterior chest to shoulders. Similar to previous ND. EKG with acute ischemic changes, new from previous though no definitive STEMI. Heart Alert called and patient reviewed with Dr Espinal. It was decided that patient is highly risky to take emergently to cath thus will plan medical intervention. Admits heavy nose bleeds recently thus Type/Cross which was fortunate as anemic. Heparin started after discussion with Cards/Medicine teams. Patient with resolution of pain after first round slntg/fent. Stable vitals. Pain resolved. Will come inf or further evaluation/treatment. Medication Reconcilliation Current Medication List: was personally reviewed by me Blood Pressure Screening Patient's blood pressure: Normal blood pressure Consults Time Called: 1128 Consulting Physician: Dr. Kendall, Hospitalist Returned Call: 113 I discussed the patient's case with Dr. Kendall, Hospitalist. He is going to evaluate the patient for further treatment. Impression Primary Impression: Acute coronary syndrome Additional Impression: Anemia Critical Care I have personally spent greater than 45 minutes of critical care time in the direct management of this patient. This was a life/limb threatening event. This includes time spent evaluating patient, direct bedside care, chart review, placing orders, interpretation of diagnostic studies, discussion with consultants, patient, and family members, as well as other required patient management activities. This 45 minutes is in excess of all separately billable procedures. Scribe Attestation The scribe's documentation has been prepared under my direction and personally reviewed by me in its entirety. I confirm that the note above accurately reflects all work, treatment, procedures, and medical decision making performed by me. Departure Information Dispostion Being Evaluated By Hospitalist Referrals Todd Azevedo M.D. (PCP) Patient Instructions My [facility] Problem Qualifiers
[2017-02-19 11:34] LABS: INR 1.1 (0.9-1.1); PARTIAL THROMBOPLASTIN RATIO 1.2; PROTHROMBIN TIME (PATIENT) 11.7 SECONDS (9.0-12.0)
[2017-02-19 11:42] LABS: CALCIUM 8.4 mg/dl (8.5-10.1); CREATININE 2.7 mg/dl (0.60-1.40); POTASSIUM 3.5 mmol/L (3.5-5.1)
[2017-02-19] MEDS ORDERED: HEPARIN SOD 5000 UNIT/0.5 ML CARP IV ONE (11:45)
[2017-02-19] MEDS ORDERED: HEPARIN 25,000 UNIT/500ML D5W 500 ML IV PRN (11:45)
[2017-02-19 11:54] LABS: COMPLETE YES; HOWELL-JOLLY BODIES 1+
[2017-02-19 12:00] LABS: CKMB/CK RATIO 2.6 (0-3.0)
[2017-02-19] MEDS ORDERED: NITROGLYCERIN OINT 2% 1GM PACKET ONE (12:17)
[2017-02-19 12:32] LABS: CHOLESTEROL/HDL RATIO 2.4
[2017-02-19] MEDS ORDERED: HYDROCORTISONE SOD SUCCINATE 100 MG/2 ML VIAL ONE (12:43)
[2017-02-19] MEDS: HYDROmorphone INJ 0.5 MG/0.5 ML SYR IV PRN ×2 (12:44→20:10)
--- NOTE | 2017-02-19 12:44 | CARDIOLOGY CONSULTATION ---
DATE OF CONSULTATION: 02/19/2017 DATE OF CONSULTATION: 02/19/2017 CONSULTATION REQUESTED BY: Dr. Vences. PRIMARY CARE PHYSICIAN: Dr. Azevedo. PRIMARY MANAGER PRESENTATION: Dr. Molina. REASON FOR CONSULTATION: Chest pain/heart alert. HISTORY OF PRESENT ILLNESS: Mr. Segura is a 51-year-old man with a complex past medical history known to me from prior admissions with a history that includes severe coronary artery disease status post 2-vessel bypass, multiple PCIs including PCI to distal LAD and distal left main into circumflex, end-stage renal disease with prior failed transplant who returns in the setting of acute onset of chest pain. The patient states he has been in his usual state of health up until this morning when after dialysis he developed severe chest pain radiating up into his neck similar to his prior cardiac events. He notes that his blood pressure was on the low side during dialysis and as a result was unable to take any nitroglycerin. Upon arrival to the Emergency Department, he had 10/10 chest pain, his EKG showed T-wave inversions with ST depressions laterally, new from prior EKGs. As a result, a heart alert was called. He was seen emergently in the ED and given sublingual nitroglycerin and 1 dose of fentanyl. With that he had near resolution of chest pain. Initial labs were remarkable for a new drop in hemoglobin down to 8 from prior of 12-13 on most recent checks. PAST MEDICAL HISTORY: 1. Coronary artery disease status post CABG in April of 2009 with HUMPHREYS to LAD, vein graft to 2 branches of the ramus, prior stents to distal LAD via HUMPHREYS to LAD in September of 2009 as well as stents to the distal left main into circumflex. Last heart catheterization was at [facility] April 2015 which showed a 3-vessel disease, severe 3-vessel disease including 30% left main stenosis, and a total proximal LAD. HUMPHREYS to LAD was patent, vein graft to circumflex and distal POB was patent. 2. His most recent hospitalization in October of 2016 with NSTEMI. At that time underwent a dobutamine stress test which showed inferior ischemia at submaximal heart rate. 3. Ischemic cardiomyopathy, last EF 45-50%. 4. 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 He is status post 3 failed transplants now in end stage renal disease. 5. Hypertension. 6. Hyperlipidemia. 7. Peripheral vascular disease with extensive calcifications of his abdominal aorta and iliacs. 8. History of gastrointestinal bleeding with Dieulafoy aneurysm in 2006 that required clipping. 9. History of questionable cirrhosis. 10. History of a cholecystectomy. 11. Recurrent C. diff infection. FAMILY HISTORY: History of coronary artery disease in father. SOCIAL HISTORY: and lives with his . History of remote smoking, occasionally uses alcohol. Denies any illicit drugs. MEDICATIONS: Aspirin 81, atorvastatin 20, Sensipar, Plavix 75 mg, isosorbide mononitrate 60 mg b.i.d., metoprolol succinate 100 mg b.i.d., nitroglycerin, oxycodone, Protonix, prednisone 5, Renvela, vitamin B and vitamin E. REVIEW OF SYSTEMS: A 10-point review of systems complete and otherwise negative unless listed in HPI. PHYSICAL EXAMINATION: VITAL SIGNS: Temperature 36.7, pulse 85, blood pressure 118/67, satting 97% on room air. GENERAL: After medication the patient appears comfortable in no acute distress. HEAD, EYES, EARS, NOSE, AND THROAT: Sclerae are anicteric. Oropharynx is clear. NECK: Supple. LUNGS: Clear to auscultation bilaterally. HEART: Has a regular rate and rhythm with no appreciable murmurs, rubs or gallops. ABDOMEN: Soft, nontender, nondistended, positive bowel sounds. EXTREMITIES: They are warm. He has got a palpable thrill in his left upper extremity fistula. SKIN: Shows no rashes or lesions. He has diminished femoral pulses bilaterally. NEUROLOGIC: Grossly nonfocal. PSYCHIATRIC: He is alert and oriented and appropriate. LABORATORY DATA: Sodium 139, potassium 3.5, BUN 19, creatinine of 2.7, point of care troponin was 0.05. INR 1.1. Hemoglobin was 8.9, down from 12.8 on 12/13/2016, platelets of 324, white blood cell count 11.9. Chest x-ray showed cardiomegaly with no pulmonary edema. There was trace right effusion. EKG showed sinus rhythm with ventricular rate of 84. There was ST-T wave abnormality in V2 through V4 with more ST depression than on prior EKGs. There is also T-wave inversions in 1, 2, and V5, V6 new from prior EKGs. IMPRESSION AND PLAN: 1. Acute onset chest pain. 2. History of severe coronary artery disease, status post multiple prior interventions and prior bypass surgery. 3. New anemia. 4. End-stage renal disease on dialysis. 5. Prior failed renal transplants. 6. Hypertension. 7. Dyslipidemia. 8. History of Clostridium difficile infection. 9. Questionable history of cirrhosis. 10. History of a prior VT, question sudden cardiac . Mr. Segura is here with acute onset of chest pain following dialysis. Initial EKG does show a new ST-T wave abnormalities laterally although with initial lab work showing a new drop in his hemoglobin since October and recent stress echo showing inferior ischemia suspect acute event may more supply demand related than acute plaque rupture. At this time, would plan to treat patient medically with nitroglycerin, narcotics and blood transfusion. Would hold off on heparin at this point. Check serial cardiac enzyme until peak, and serial blood counts. No plans for intervention until further workup of patient's new onset anemia. If blood counts stable continue current home regimen including dual-antiplatelet therapy. Cardiology to continue to follow while in the hospital. Thank you for allowing us to participate in the care of this patient. NICA
[2017-02-19] MEDS ORDERED: NITROGLYCERIN/D5W 100 MCG/ML BTL ONE (13:22)
[2017-02-19] MEDS ORDERED: NURSING VERBAL MED ORDER ONE ×4 (13:30→22:30)
[2017-02-19] MEDS ORDERED: NITROGLYCERIN/D5W 100 MCG/ML IV PRN (13:45)
[2017-02-19] MEDS ORDERED: ONDANSETRON INJ 2 MG/ML 2 ML VIAL ONE (13:47)
[2017-02-19] MEDS ORDERED: NITROGLYCERIN OINT 2% 1GM PACKET EXT SCH (14:00)
[2017-02-19] MEDS ORDERED: BCTROWC NAE (14:02)
--- NOTE | 2017-02-19 15:02 | HISTORY & PHYSICAL EXAMINATION ---
DATE OF ADMISSION: 02/19/2017 CHIEF COMPLAINT: Chest pain. HISTORY OF PRESENT ILLNESS: The patient is a 51-year-old with very complicated past medical history. The patient did have end-stage renal disease currently on dialysis since he was 13 years old secondary to streptococcus throat glomerulonephritis. 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 Also had a significant cardiac history, he had coronary artery disease status post CABG in April 2009 and followed by stents to the distal left main and circumflex in 2009. He also had another heart catheterization in [facility] on April 2015 that showed a 3-vessel disease including 30% left main stenosis, and total proximal LAD yet HUMPHREYS to LAD was patent and vein graft to circumflex and distal POB were patent. In October 2014 patient was admitted with non-STEMI and stress test showed inferior ischemia. No cardiac catheterization was done then. The patient has been managed medically and was doing okay until today. He went to dialysis and as per the patient in dialysis his pressure dropped to 70s at the end of dialysis. He started having some chest tightness after he went to the car, he could not take his nitro because he figured that his pressure is low. He came to the Emergency Department and he was found to have significant EKG changes and a slightly positive troponin, but there was no ST elevation. On presentation, his pressure was around 100/70. He has been seen by Dr. Espinal data mining analyst who knows him very well from previous admissions. The patient continues to have persistent pain for now and will be admitted to ICU for further evaluation and management. PAST MEDICAL HISTORY: 1. As mentioned in HPI, coronary artery disease with above details. 2. Ischemic cardiomyopathy, last ejection fraction 45-50%. 3. End-stage renal disease on dialysis. 4. 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 5. Immunocompromised with chronic prednisone use. 6. Hypertension. 7. Dyslipidemia. 8. Peripheral vascular disease, extensive calcification of aorta and iliacs. 9. Gastrointestinal bleed in the past with Dieulafoy aneurysm in 2006, status post clipping. 10. History of cholecystectomy. 11. Recurrent C. diff infections. 12. Questionable liver cirrhosis. FAMILY HISTORY: Coronary artery disease in his father. SOCIAL HISTORY: He smokes an occasional cigar, but very rarely and only drinks socially. Denies any illicit drugs, and lives with his . HOME MEDICATIONS: 1. Aspirin. 2. Atorvastatin. 3. Sensipar. 4. Plavix. 5. Imdur. 6. Metoprolol succinate 50 mg p.o. b.i.d. 7. Nitroglycerin. 8. Pantoprazole. 9. Prednisone 5 mg daily. 10. Renvela 1600 mg p.o. t.i.d. 11. Vitamin B complex. 12. Vitamin E. ALLERGIES: DIAZOXIDE AND NONSTEROIDAL ANTI-INFLAMMATORY. PHYSICAL EXAMINATION: VITAL SIGNS: Temperature of 36.7, heart rate 85, respirations 25, blood pressure currently 118/67, pulse ox is 97% on room air. GENERAL: Patient is average built, appears to be in moderate distress, slightly pale, no jaundice. HEAD, EYES, EARS, NOSE, AND THROAT: Moist mucous membranes. NECK: Supple. HEART: S1, S2 normal. No gallop, rub or murmur. LUNGS: Clear to auscultation bilaterally. Normal chest wall expansion. ABDOMEN: Soft, nontender, nondistended. NEUROLOGIC: Awake, alert, oriented to time, place, and person. Moves all extremities. Sensation intact. Cranial nerves II-XII appears to be intact. SKIN: No rash or erythema and exposed skin area. Joints no swelling or erythema. EXTREMITIES: No edema, clubbing or cyanosis. PSYCHIATRIC: Appropriate affect and normal process of thinking. IMAGING: Chest x-ray showed cardiomegaly with no congestion in the lungs. LABORATORY DATA: White blood cell count 11.2, hemoglobin 8.9, platelet 324, BUN is 19, creatinine 2.7. Sodium 139, potassium 3.5. ASSESSMENT: 1. Non-ST segment elevation myocardial infarction with EKG changes and positive troponin. 2. Chest pain secondary to above. 3. Coronary artery disease status post coronary artery bypass graft. 4. Acute blood loss anemia with 3 grams of hemoglobin drop secondary to nasal bleed that has been recurrent within the last 2 months, not actively bleeding at this moment. 5. End-stage renal disease on dialysis. 6. Hypertension. 7. History of myocardial infarction in the past. 8. Questionable history of liver cirrhosis. 9. Failed transplant in the past. 10. Questionable history of gastric mass. PLAN: 1. Admit patient to ICU given his multiple comorbidities and persistent pain. 2. Due to chronic prednisone use I ordered stat hydrocortisone injection. His blood pressure improved now to above 150 systolic. After that I ordered nitroglycerin patch and sublingual nitroglycerin as needed. 3. Continue beta rubin as long as blood pressure allows. 4. Dilaudid IV for pain. 5. Consult Dr. Espinal appreciated. We will defer fair to his discretion whether a cath is needed immediately or not. 6. Discussed with medicine aide. The patient will be monitored in ICU until further stabilized and pain resolves. 7. Since he is not actively bleeding now from his dose will start him on heparin drip. 8. Two units of packed RBCs transfusion to maximize his oxygen carrying capacity. 9. Serial cardiac enzymes. 10. Continue home medications as appropriate including aspirin, atorvastatin and metoprolol. 11. Further recommendation will follow.
[2017-02-19 15:25] LABS: ISTAT CREATININE 2.7 mg/dl (0.6-1.3)
[2017-02-19 15:26] LABS: ISTAT HEMOGLOBIN 8.8 g/dl (14.0-18.0); ISTAT IONIZED CALCIUM 0.97 mmol/l (1.12-1.32)
[2017-02-19] MEDS: SEVELAMER HYDROCH 800 MG TAB PO SCH (16:30)
[2017-02-19] MEDS ORDERED: HYDROCORTISONE SOD SUCCINATE 100 MG/2 ML VIAL IV SCH (20:00)
[2017-02-19] MEDS: ATORVASTATIN 20 MG TAB PO SCH (20:11)
[2017-02-19] MEDS: ISOSORBIDE MONONITRATE 60 MG TABCR PO SCH (20:11)
[2017-02-19] MEDS: HYDROCORTISONE IV 100 MG in SYRINGE 0 ML IV SCH (20:21)
[2017-02-19] MEDS: ZOLPIDEM TARTRATE 5 MG TAB PO PRN (22:13)
--- NOTE | 2017-02-19 23:23 | Critical Care Consultation ---
Critical Care Consultation Date of Consultation: Feb 19, 2017. Attending Physician: Guru Roberts MD Reason for Consultation: Angina, anemia, ESRD History of Present Illness This is a 51 year old male with an extensive medical history, including ESRD on HD since age of 13, failed 4 renal transplants, CAD s/p 2 vessel CABG about 13 years ago, came to ED today c/o persistent chest pain during HD this morning, having low BP. Eventually the HD was completed and he came to ED, found to have some EKG changes such as ST depression. Symptoms did respond to nitroglycerin SL and fentanyl but return and were controlled again with low dose NTG drip. Of note, his h/h is lower now, at 8.9/25.3 from 12.8/39.1. He had several episodes of epistaxis in the last month, but states that they are getting better after seeing ENT and being prescribed an antibiotic ointment for his nose. 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 Ischemic cardiomyopathy, EF 45-50% CAD, s/p 2 vessel CABG and PCI H/o liver failure Family History FH: heart disease Social History Smoking Status: Never Smoker Drug Use: none Marital Status: Housing Status: lives with significant other Occupation Status: employed, disabled Allergies Coded Allergies: POLLEN (Verified Allergy, Unknown, "HAYFEVER", 02/19/17) Diazoxide (Verified Adverse Reaction, Intermediate, ELEVATE BP;N&V, ) NSAIDs (Verified Adverse Reaction, Unknown, KIDNEY TRANSPLANT, 02/19/17) Home Medications Scheduled Aspirin (Aspirin Ec), 81 MG PO DAILY Atorvastatin (Atorvastatin Calcium), 20 MG PO HS Cinacalcet Hydrochloride (Sensipar), 30 MG PO QAM Clopidogrel Bisulfate (Clopidogrel), 75 MG PO DAILY Isosorbide Mononitrate (Isosorbide Mononitrate ER), 60 MG PO BID Metoprolol Succinate (Metoprolol Succinate ER), 50 MG PO BID Mupirocin (Bactroban 2% Oint), 1 APPLN JENN BID Nitroglycerin (Nitrostat), 0.4 MG UT PRN Pantoprazole (Pantoprazole Sodium), 40 MG PO DAILY Prednisone (Prednisone), 5 MG PO DAILY Sevelamer Carbonate (Renvela), 1,600 MG PO TID Vitamin B Cmplx/Vitc/Folic Ac (Nephrocaps), 1 CAP PO DAILY Vitamin E (Vitamin E), 400 UNIT PO DAILY Scheduled PRN Oxycodone Ir (Roxicodone Ir), 5 MG PO Q4H PRN for Severe Pain Current Inpatient Medications Current Inpatient Medications Medications (Trade) Dose Ordered Sig/Amanda Route Start Time Stop Time Status Last Admin Dose Admin Nitroglycerin (Nitrostat Tab) 0.4 mg UD PRN SL 02/19/17 12:15 03/21/17 12:14 Hydromorphone HCl (Dilaudid Inj) 0.5 mg Q4H PRN IV 02/19/17 12:30 03/05/17 12:29 02/19/17 20:10 0.5 MG Atorvastatin Calcium (Lipitor Tab) 20 mg HS PO 02/19/17 21:00 03/21/17 20:59 02/19/17 20:11 20 MG Clopidogrel Bisulfate (plAVix TAB) 75 mg DAILY PO 02/20/17 09:00 03/22/17 08:59 Isosorbide Mononitrate (Imdur Ext Rel Tab) 60 mg BID PO 02/19/17 21:00 03/21/17 20:59 02/19/17 20:11 60 MG Oxycodone HCl (Roxicodone Immediate Rel Tab) 5 mg Q4H PRN PO 02/19/17 12:30 03/05/17 12:29 Pantoprazole Sodium (Protonix Tab) 40 mg DAILY PO 02/20/17 09:00 03/22/17 08:59 Vitamin B Complex/ Vit C/Folic Acid (Nephrocaps) 1 cap DAILY PO 02/20/17 09:00 03/22/17 08:59 Miscellaneous Information (Order Awaiting Action) 1 ea QS N/A 02/19/17 16:00 03/21/17 15:59 Sevelamer HCl (Renagel Tab) 1,600 mg TIDM PO 02/19/17 16:30 03/21/17 16:29 Aspirin (Ecotrin Tab) 81 mg QAM PO 02/20/17 09:00 03/22/17 08:59 Hydrocortisone Sodium Succinate 100 mg/Syringe 2 ml @ 4 mls/min Q8@0400,1200,2000 IV 02/19/17 20:00 02/21/17 04:01 02/19/17 20:21 4 MLS/MIN Ondansetron HCl (Zofran Inj) 4 mg Q8 PRN IV 02/19/17 14:00 03/21/17 13:59 Zolpidem Tartrate (Ambien Tab) 5 mg HS PRN PO 02/19/17 22:00 03/21/17 21:59 02/19/17 22:13 5 MG Nitroglycerin (Nitroglycerin 2% Oint) 1 inch Q6H EXT 02/20/17 00:00 03/22/17 00:00 Review of Systems Constitutional: No fever, No chills ENT: + unusual epistaxis Respiratory: No cough, No sputum, No shortness of breath Cardiovascular: + chest pain, No edema Abdomen: No pain, No nausea, No vomiting Musculoskeletal: No joint pain Genitourinary - Male: No hematuria Psychiatric: No depression symptoms Endocrine: No excessive thirst, No excessive urination Integumentary: No rash, No itch Physical Exam Date Time Temp Pulse Resp B/P (MAP) Pulse Ox O2 Delivery O2 Flow Rate FiO2 02/19/17 21:01 81 15 125/69 (87) 98 Room Air 02/19/17 20:46 81 23 124/66 (85) 91 Room Air 02/19/17 20:31 81 20 131/70 (90) 94 Room Air 02/19/17 20:16 81 14 145/76 (99) 99 Room Air 02/19/17 20:01 36.8 81 21 121/70 (87) 99 Room Air 02/19/17 20:00 Nasal Cannula 2.0 02/19/17 19:46 78 15 129/65 (86) 99 Room Air 02/19/17 19:31 81 18 147/73 (97) 100 Room Air 02/19/17 19:16 80 18 128/75 (92) 99 Room Air 02/19/17 19:01 82 13 142/75 (97) 98 Room Air 02/19/17 19:00 80 17 100 02/19/17 18:15 79 20 100 02/19/17 18:01 81 15 140/64 (89) 99 02/19/17 18:00 80 18 99 02/19/17 17:46 78 9 131/83 (99) 98 Nasal Cannula 2.0 02/19/17 17:31 36.7 80 18 156/74 (101) 100 Nasal Cannula 2.0 02/19/17 17:16 36.8 79 19 154/79 (104) 99 02/19/17 17:02 36.7 79 17 145/80 (101) 99 02/19/17 16:42 84 21 127/73 (91) 97 02/19/17 16:32 82 26 168/66 (100) 100 02/19/17 16:16 85 15 111/76 (88) 100 02/19/17 16:05 98 Nasal Cannula 2.0 02/19/17 16:01 36.7 80 19 138/68 (91) 99 02/19/17 15:46 82 23 146/58 (87) 99 02/19/17 15:32 85 13 159/91 (113) 100 02/19/17 15:16 83 21 144/51 (82) 95 02/19/17 15:02 83 19 137/75 (95) 98 02/19/17 14:47 85 25 128/56 (80) 97 02/19/17 14:31 84 35 117/64 (81) 99 02/19/17 13:46 85 33 121/61 (81) 100 Nasal Cannula 2.0 02/19/17 13:31 85 19 142/77 (98) 100 02/19/17 13:16 89 17 113/70 100 02/19/17 13:16 89 17 113/70 (84) 100 02/19/17 13:14 36.8 88 20 151/83 99 Nasal Cannula 2.0 02/19/17 13:11 90 18 151/83 100 02/19/17 13:11 90 18 151/83 (105) 100 02/19/17 13:06 86 23 100 02/19/17 13:05 145/90 02/19/17 13:05 89 24 145/90 (108) 100 Nasal Cannula 2.0 02/19/17 12:51 87 128/69 100 02/19/17 12:51 87 128/69 (88) 100 02/19/17 12:46 85 24 100 02/19/17 12:41 83 33 114/70 100 02/19/17 12:41 83 33 114/70 (85) 100 02/19/17 12:36 83 27 87 02/19/17 12:31 36.7 82 24 112/64 (80) 98 Nasal Cannula 2.0 02/19/17 12:31 82 24 112/64 98 02/19/17 12:26 85 25 96 02/19/17 12:21 82 33 104/62 89 02/19/17 12:16 85 30 96 02/19/17 12:11 84 29 122/66 96 02/19/17 12:06 84 35 98 02/19/17 12:02 112/64 02/19/17 12:01 81 37 98 02/19/17 11:56 85 26 95 02/19/17 11:51 87 26 127/72 95 02/19/17 11:46 86 30 97 02/19/17 11:41 84 27 104/70 98 02/19/17 11:36 84 32 100 02/19/17 11:31 118/67 02/19/17 11:25 85 31 97 02/19/17 11:21 112/68 02/19/17 11:15 89 25 99 02/19/17 11:11 114/74 02/19/17 11:09 98/66 02/19/17 11:05 90 02/19/17 11:01 90 02/19/17 10:48 36.7 89 18 121/76 99 Room Air General Appearance: well-appearing, WD/WN, no apparent distress Head: normocephalic, atraumatic Eyes: PERRLA Neck: no tenderness, trachea midline, supple Respiratory: breath sounds normal, clear to auscultation, no respiratory distress Cardiovasular: regular rate/rhythm, normal S1S2, systolic murmur (best heard in aortic point) Upper Extremities: no edema, other (left arm AV fistula) Lower Extremities: no edema Neuro: alert, oriented x 3, normal motor exam, normal sensation Laboratory Results Last 24 Hours Test 02/19/17 11:10 02/19/17 11:15 02/19/17 16:54 02/19/17 18:14 Bedside Troponin I 0.050 ng/ml White Blood Count 11.19 K/uL Red Blood Count 2.53 M/uL Hemoglobin 8.9 g/dL Hematocrit 25.3 % Mean Corpuscular Volume 100.0 fL Mean Corpuscular Hemoglobin 35.2 pg Mean Corpuscular Hemoglobin Concent 35.2 g/dl Platelet Count 324 K/uL Mean Platelet Volume 10.0 fL Neutrophils (%) (Auto) 44.9 % Lymphocytes (%) (Auto) 38.0 % Monocytes (%) (Auto) 13.3 % Eosinophils (%) (Auto) 3.0 % Basophils (%) (Auto) 0.4 % Neutrophils # (Auto) 5.03 K/uL Lymphocytes # (Auto) 4.25 K/uL Monocytes # (Auto) 1.49 K/uL Eosinophils # (Auto) 0.34 K/uL Basophils # (Auto) 0.04 K/uL Bedside Hemoglobin 8.8 g/dl Bedside Hematocrit 26 % RDW Standard Deviation 63.4 fL RDW Coefficient of Variation 17.9 % Immature Granulocyte % (Auto) 0.4 % Immature Granulocyte # (Auto) 0.04 K/uL Macrocytosis PRESENT Pappenheimer Bodies 1+ [place] Bodies 1+ Prothrombin Time 11.7 SECONDS Prothromb Time International Ratio 1.1 Activated Partial Thromboplast Time 30.5 SECONDS Partial Thromboplastin Ratio 1.2 Bedside Sodium 138 mEq/L Sodium Level 139 mmol/L Bedside Potassium 3.3 mEq/L Potassium Level 3.5 mmol/L Bedside Chloride 94 mEq/L Chloride Level 100 mmol/L Carbon Dioxide Level 32 mmol/L Bedside Total CO2 31 mEq/l Anion Gap 18.0 mmol/L Bedside Blood Urea Nitrogen 19 mg/dl Blood Urea Nitrogen 19 mg/dl Creatinine 2.70 mg/dl Bedside Creatinine 2.7 mg/dl Est Creatinine Clear Calc Drug Dose 28.7 ml/min Estimated GFR () 30.5 Estimated GFR (Non- 26.3 BUN/Creatinine Ratio 7.0 Bedside Glucose (other) 101 mg/dl Random Glucose 116 mg/dl Calcium Level 8.4 mg/dl Bedside Ionized Calcium (Bertha) 0.97 mmol/l Total Creatine Kinase 47 U/L 47 U/L Creatine Kinase MB 1.2 ng/ml Creatine Kinase MB Ratio 2.6 Troponin I 0.060 ng/ml 0.301 ng/ml Triglycerides Level 120 mg/dl Cholesterol Level 70 mg/dl HDL Cholesterol 29 mg/dl LDL Cholesterol, Calculated 17 mg/dl VLDL Cholesterol, Calculated 24 mg/dl Cholesterol/HDL Ratio 2.4 Bedside Glucose 117 mg/dl Diagnostic Results CXR today IMPRESSION: 1. Cardiomegaly without evidence of cristino pulmonary edema. 2. Trace right effusion. EKG: NSR at 84 bpm, ST depression in susanne-lateral leads, with old T-wave inversions Assessment & Plan 51 year old male with h/o CAD, ESRD on HD admitted with NSTEMI and ongoing chest pain Problems: NSTEMI CAD Anemia Ischemic cardiomyopathy ESRD on HD Plan: Continue nitrates in the form of NTG drip or paste Cardiology evaluation noted For now continue patient on ASA and Plavix Had HD today, scheduled session is for Wednesday Transfuse one unit PRBC, I don't think he needs 2 units. Stress dose steroids, he is on chronic Prednisone 5 mg Critical care time spent 25 minutes
[2017-02-20] VITALS (53 sets, daily range): BP systolic 86–172; BP diastolic 41–99; PULSE 70–87; TEMP 36.4–36.8; O2SAT 91–100
[2017-02-20] MEDS: NITROGLYCERIN OINT 2% 1GM PACKET EXT SCH ×4 (00:29→17:16)
[2017-02-20] MEDS: HYDROCORTISONE IV 100 MG in SYRINGE 0 ML IV SCH ×3 (04:54→19:32)
[2017-02-20] MEDS: NITROGLYCERIN 0.4 MG SL PER TAB CHARGE SL PRN ×6 (05:43→21:51)
[2017-02-20 06:27] LABS: BASO % 0.1 %; BASO ABS # 0.01 K/uL (0-0.2); COMPLETE YES; HEMATOCRIT 27.8 % (42-52); IG% 0.2 %; LYMPH % 29.9 %; LYMPH ABS # 4.37 K/uL (1.2-3.4); MEAN CELL VOLUME 98.2 fL (80-100); MEAN CORPUSCULAR HEMOGLOBIN 33.9 pg (25-34); MEAN CORPUSCULAR HGB CONC 34.5 g/dl (32-36); MEAN PLATELET VOLUME 10.5 fL (7.4-10.4); MONO % 4.1 %; NEUT % 65.7 %; PLATELET COUNT 361 K/uL (130-400); RED BLOOD COUNT 2.83 M/uL (4.7-6.1)
[2017-02-20 07:23] LABS: ALB/GLOB RATIO 0.5 (0.9-2); BUN/CREATININE RATIO 13.3 (10-20); CALCIUM 8.6 mg/dl (8.5-10.1); CREATININE 4.9 mg/dl (0.60-1.40); MAGNESIUM 2.3 mg/dl (1.8-2.4); PHOSPHORUS 5.1 mg/dl (2.5-4.9); POTASSIUM 5.1 mmol/L (3.5-5.1)
[2017-02-20] MEDS: ONDANSETRON INJ 2 MG/ML 2 ML VIAL IV PRN (07:41)
[2017-02-20] MEDS: OXYCODONE HCL IR 5 MG TAB (IMMEDIATE RELEASE) PO PRN ×2 (07:41→20:19)
[2017-02-20 08:00] LABS: ESTIMATED AVERAGE GLUCOSE 111 mg/dl; HA1C FLAG Normal (Normal)
[2017-02-20] MEDS: SEVELAMER HYDROCH 800 MG TAB PO SCH ×3 (08:34→17:15)
[2017-02-20] MEDS: NEPHROCAPS PO SCH (08:34)
[2017-02-20] MEDS: ISOSORBIDE MONONITRATE 60 MG TABCR PO SCH ×2 (08:34→19:34)
[2017-02-20] MEDS: CLOPIDOGREL BISULFATE 75 MG TAB PO SCH (08:34)
[2017-02-20] MEDS: ASPIRIN 81 MG ECTAB PO SCH (08:34)
[2017-02-20] MEDS: PANTOprazole SOD 40 MG TAB PO SCH (08:35)
[2017-02-20] MEDS: HYDROmorphone INJ 0.5 MG/0.5 ML SYR IV PRN ×2 (08:37→22:02)
[2017-02-20] MEDS ORDERED: METOPROLOL TARTRATE 1 MG/ML VIAL IV STA (08:49)
[2017-02-20] MEDS: FENTANYL CITRATE INJ 50 MCG/1 ML 2 ML VIAL IV PRN ×4 (09:17→19:31)
[2017-02-20] MEDS ORDERED: METOPROLOL SUCC 50MG EXT REL TAB PO STA (10:58)
[2017-02-20] MEDS ORDERED: HEPARIN 25,000 UNIT/500ML D5W 500 ML IV PRN (11:45)
[2017-02-20] MEDS ORDERED: HEPARIN IV BOLUS 5,000 UNIT in SYRINGE 0 ML IV ONE (11:45)
--- NOTE | 2017-02-20 12:06 | CARDIOLOGY PROGRESS NOTE ---
DATE: 02/20/2017 DATE: 02/20/2017 HISTORY OF PRESENT ILLNESS: The patient was seen by me this morning in his ICU room. This morning he has had 2 episodes of anginal chest discomfort at rest. These both occurred while lying in bed. Retrosternal heaviness and tightness radiating into his jaw in 2 bilateral axillary areas. Associated nausea. He did not have any associated dyspnea which he attributes to having nasal cannula oxygen in place. The episodes improved and then were relieved with sublingual nitroglycerin. He thinks the episodes each lasted 15 to 30 minutes. Since then, no further such discomfort. No orthopnea or PND overnight. He denies any palpitations, lightheadedness, or syncope. No abdominal pain. No nausea independent of the chest discomfort. No leg pain. No symptoms of any bleeding. CURRENT MEDICATIONS: Isosorbide mononitrate 60 mg p.o. b.i.d., clopidogrel 75 mg daily, pantoprazole 40 mg daily, Nephrocaps 1 cap daily, atorvastatin 20 mg at bedtime, nitroglycerin ointment 1 inch q. 6 hours, hydrocortisone 100 mg IV q. 8 hours, aspirin 81 mg daily, Renagel 1600 mg p.o. t.i.d. ALLERGIES AND ADVERSE DRUG REACTIONS: DIAZOXIDE, NONSTEROIDAL ANTI-INFLAMMATORY DRUGS. Monitor since admission reveals sinus rhythm, frequent premature ventricular beats. PHYSICAL EXAMINATION: VITAL SIGNS: This morning was episode of chest discomfort with pulse 76 beats per minute, blood pressure 114/60, pulse oximetry 98%. Forty-five minutes later blood pressure reported to be 172/83 with a pulse of 78. Current blood pressure 108/62. Pulse 78. NECK: Jugular venous pressure 8 cm. LUNGS: Normal respiratory effort. Clear. No rales or wheezes. HEART: PMI nonpalpable. No lifts or heaves. Regular rate and rhythm. The aortic valvular closing sound is present. A 2/6 crescendo-decrescendo murmur second right intercostal space and upper left sternal border. A 2/6 holosystolic murmur left lower sternal border and apex. No diastolic murmur or rub. ABDOMEN: Soft. Nontender. No palpable masses or organomegaly. No bruits. Normal bowel sounds. EXTREMITIES: No pretibial edema. DATA: Electrocardiogram this morning with sinus rhythm, premature ventricular beats, ST depressions V2-V6. Inverted T-waves V1-V3. Inverted T-waves inferior leads. Mild intraventricular conduction delay. LABORATORY DATA: Labs this morning with WBC 14.60, hemoglobin 9.6, hematocrit 27.8, platelet count 361. Metabolic profile this morning with sodium 138, potassium 5.1, chloride 101, carbon dioxide 27, BUN 65, creatinine 4.90, random glucose 104. Troponin I this morning 0.545. Earlier this morning it was 0.460. Troponin I on arrival to the Emergency Department yesterday was 0.060. Subsequent troponin I was then 0.301. ASSESSMENT: 1. Longstanding history of coronary artery disease. History of drug-eluting stent in mid LAD in 2005. Non-ST elevation myocardial infarction in 2008. Severe LAD stenoses, ramus with severe stenosis, nondominant RCA with total mid segment occlusion, 70% left main stenosis. Subsequent coronary artery bypass graft surgery at [facility] 04/30/2009. Reported left inframammary artery graft to LAD. Saphenous vein graft to 2 branches of the ramus. Repeat admission to [facility] June 2009 with a non-ST elevation myocardial infarction. Cardiac catheterization with patent left inframammary artery graft to LAD. Severe ostial and mid LAD stenoses. Moderate left main stenosis. Severe distal LAD stenosis following the graft insertion. Moderate ostial ramus stenosis. Severe mid ramus stenosis followed by total occlusion. Chronic mid RCA occlusion. Saphenous vein graft to ramus with distal anastomotic stenosis. The other anastomosis appeared to a posterolateral artery. Repeat PCI 10/08/2009 at [facility] in [place]. A 2.5 x 18 mm drug-eluting stent in LAD. A 3.5 x 20 mm drug-eluting stent in left main extending into the left circumflex. Complicated by a right femoral arteriovenous fistula treated conservatively. Repeat cardiac catheterization at [facility] April 2015 revealed severe 3-vessel CAD. Reported 50% left main stenosis, total proximal LAD occlusion, 99% left circumflex occlusion, 80% stenosis in the mid segment of the nondominant RCA, patent internal mammary artery graft to LAD, a patent saphenous vein graft to what was reported to be a left circumflex marginal and then to the distal left circumflex. It was reported that there is a chronic occlusion of the vein graft of what was reported to be the left circumflex first marginal branch. 2. This admission with non-ST elevation myocardial infarction. Recurrent episodes of anginal symptoms this morning. This is despite being transfused 1 unit packed red blood cells since admission. No current anginal symptoms. 3. Dobutamine stress echocardiogram 11/19/2016 with low normal resting LV systolic function. Borderline LVH. Reduced right ventricular systolic function. Mild mitral regurgitation. Mild to moderate tricuspid regurgitation. Aortic valve sclerosis. On resting echo assessment was severely hypokinetic. Hypokinesis of the inferior wall with dobutamine stress 78% maximum predicted heart rate attained. Inferior wall motion worsened at higher heart rate. 4. No evidence of congestive heart failure on exam. 5. Asymptomatic premature ventricular beats. 6. Chronic kidney disease. Chronic hemodialysis. 7. Status post cholecystectomy. 8. Anemia on admission. Recently the patient had a significant episode of epistaxis. This may have contributed to his current anemia. His hemoglobin in November was 13.6. In July 2016 his hemoglobin was 8.8. He did receive a blood transfusion thereafter in July 2016. His blood count has improved slightly with transfusion of 1 unit packed red blood cells this admission. PLAN AND RECOMMENDATIONS: 1. Start intravenous heparin by weight-based protocol. Continue for at least 48 hours. 2. Restart patient's metoprolol. 3. If any further episodes of chest discomfort restart intravenous nitroglycerin. 4. The patient considering agreeing to a cardiac catheterization procedure. Based on his most recent cardiac catheterization any intervention would likely need to be performed through either the left internal mammary artery graft or the saphenous vein graft. He has severe underlying 3-vessel coronary artery disease. He is clearly at increased risk for cardiac catheterization and any possible interventional procedure. 5. Would not perform any emergent cardiac catheterization unless he was having evidence of life threatening myocardial ischemia or ST segment elevations on his electrocardiogram. 6. Continue checking troponin I's. Continue serial electrocardiograms.
[2017-02-20 12:15] LABS: INR 1.1 (0.9-1.1); PARTIAL THROMBOPLASTIN RATIO 1.1; PROTHROMBIN TIME (PATIENT) 11.4 SECONDS (9.0-12.0)
--- NOTE | 2017-02-20 13:54 | Progress Note ---
Subjective Date of Service: Feb 20, 2017. Subjective this pt has much quieting of his chest pain since overnight, he feels he waited too long before using nitro and the pain just got ahead of him. Cardiology is appropriately concerned about perfroming a cath here without surgical backup as last anatomy defined by left heart cath had much of his left ventricle living off vein grafts or his HUMPHREYS and if there would be an issue during cath surgical backup would be preferred. Pt has had smoldering troponin levels and some deepening of his st changes that have been present before Problem List Medical Problems: (1) Acute coronary syndrome Status: Acute (2) Atrial flutter with rapid ventricular response Status: Acute (3) Chest pain Status: Acute (4) Chest pain Status: Acute (5) Chest pain Status: Acute (6) Elevated troponin Status: Acute (7) Elevated troponin Status: Acute (8) End stage renal disease Status: Acute (9) Epistaxis Status: Acute (10) ESRD (end stage renal disease) Status: Acute (11) GI bleed Status: Acute (12) Hyperbilirubinemia Status: Acute (13) Lower GI bleeding Status: Acute (14) Peptic ulcer disease Status: Acute (15) Precordial chest pain Status: Acute (16) RUQ abdominal pain Status: Acute (17) Sepsis Status: Acute (18) Sepsis Status: Acute (19) Substernal precordial chest pain Status: Acute (20) Unstable angina Status: Acute (21) Upper abdominal pain Status: Acute (22) Wrist pain, left Status: Acute Social History Problems: (1) H/O splenectomy Status: Acute Review of Systems Constitutional: + weakness, + fatigue, No fever, No chills Respiratory: No cough, No shortness of breath, No dyspnea on exertion Cardiac: + chest pain, No edema Abdomen: No pain, No nausea, No vomiting, No diarrhea Male : No dysuria, No urinary frequency Psychiatric: + depression symptoms, + anxiety Objective Vital Signs Date Time Temp Pulse Resp B/P (MAP) Pulse Ox O2 Delivery O2 Flow Rate FiO2 02/20/17 05:46 78 18 172/83 (112) 100 Nasal Cannula 2.0 02/20/17 05:43 84 14 162/97 (118) 100 Nasal Cannula 2.0 02/20/17 05:31 75 16 135/72 (93) 100 Nasal Cannula 2.0 02/20/17 05:16 73 26 121/58 (79) 99 Nasal Cannula 2.0 02/20/17 05:01 76 19 114/60 (78) 98 Nasal Cannula 2.0 02/20/17 04:46 71 18 100/47 (64) 100 Nasal Cannula 2.0 02/20/17 04:31 72 27 89/41 (57) 100 Nasal Cannula 2.0 02/20/17 04:16 74 21 86/43 (57) 100 Nasal Cannula 2.0 02/20/17 04:01 36.6 71 17 92/54 (67) 100 Nasal Cannula 2.0 02/20/17 04:00 Nasal Cannula 2.0 02/20/17 03:46 74 16 124/60 (81) 100 Nasal Cannula 2.0 02/20/17 03:31 75 19 105/59 (74) 99 Nasal Cannula 2.0 02/20/17 03:01 73 22 95/50 (65) 99 Nasal Cannula 2.0 02/20/17 02:31 70 26 106/52 (70) 98 Nasal Cannula 2.0 02/20/17 02:01 77 16 93/55 (68) 91 Nasal Cannula 2.0 02/20/17 01:32 77 18 135/60 (85) 94 Nasal Cannula 2.0 02/20/17 01:01 79 23 102/66 (78) 98 Nasal Cannula 2.0 02/20/17 00:31 78 19 108/58 (75) 98 Nasal Cannula 2.0 02/20/17 00:01 36.6 81 18 101/64 (76) 97 Nasal Cannula 2.0 02/20/17 00:01 Nasal Cannula 2.0 02/19/17 23:46 79 24 115/54 (74) 98 Nasal Cannula 2.0 02/19/17 23:31 83 26 102/59 (73) 95 Nasal Cannula 2.0 02/19/17 23:16 81 20 132/66 (88) 98 Nasal Cannula 2.0 02/19/17 23:01 79 18 100/60 (73) 99 Nasal Cannula 2.0 02/19/17 22:46 80 18 107/58 (74) 98 Nasal Cannula 2.0 02/19/17 22:31 77 24 112/65 (81) 99 Nasal Cannula 2.0 02/19/17 22:16 82 17 133/73 (93) 99 Nasal Cannula 2.0 02/19/17 22:01 81 15 128/69 (88) 100 Nasal Cannula 2.0 02/19/17 21:46 77 21 126/65 (85) 99 Nasal Cannula 2.0 02/19/17 21:31 83 18 112/68 (83) 90 Room Air 02/19/17 21:16 81 20 122/69 (86) 95 Room Air 02/19/17 21:01 81 15 125/69 (87) 98 Room Air 02/19/17 20:46 81 23 124/66 (85) 91 Room Air 02/19/17 20:31 81 20 131/70 (90) 94 Room Air 02/19/17 20:16 81 14 145/76 (99) 99 Room Air 02/19/17 20:01 36.8 81 21 121/70 (87) 99 Room Air 02/19/17 20:00 Nasal Cannula 2.0 02/19/17 19:46 78 15 129/65 (86) 99 Room Air 02/19/17 19:31 81 18 147/73 (97) 100 Room Air 02/19/17 19:16 80 18 128/75 (92) 99 Room Air 02/19/17 19:01 82 13 142/75 (97) 98 Room Air 02/19/17 19:00 80 17 100 02/19/17 18:15 79 20 100 02/19/17 18:01 81 15 140/64 (89) 99 02/19/17 18:00 80 18 99 02/19/17 17:46 78 9 131/83 (99) 98 Nasal Cannula 2.0 02/19/17 17:31 36.7 80 18 156/74 (101) 100 Nasal Cannula 2.0 02/19/17 17:16 36.8 79 19 154/79 (104) 99 02/19/17 17:02 36.7 79 17 145/80 (101) 99 02/19/17 16:42 84 21 127/73 (91) 97 02/19/17 16:32 82 26 168/66 (100) 100 02/19/17 16:16 85 15 111/76 (88) 100 02/19/17 16:05 98 Nasal Cannula 2.0 02/19/17 16:01 36.7 80 19 138/68 (91) 99 02/19/17 15:46 82 23 146/58 (87) 99 02/19/17 15:32 85 13 159/91 (113) 100 02/19/17 15:16 83 21 144/51 (82) 95 02/19/17 15:02 83 19 137/75 (95) 98 02/19/17 14:47 85 25 128/56 (80) 97 02/19/17 14:31 84 35 117/64 (81) 99 02/19/17 13:46 85 33 121/61 (81) 100 Nasal Cannula 2.0 02/19/17 13:31 85 19 142/77 (98) 100 02/19/17 13:16 89 17 113/70 100 02/19/17 13:16 89 17 113/70 (84) 100 02/19/17 13:14 36.8 88 20 151/83 99 Nasal Cannula 2.0 02/19/17 13:11 90 18 151/83 100 02/19/17 13:11 90 18 151/83 (105) 100 02/19/17 13:06 86 23 100 02/19/17 13:05 145/90 02/19/17 13:05 89 24 145/90 (108) 100 Nasal Cannula 2.0 02/19/17 12:51 87 128/69 100 02/19/17 12:51 87 128/69 (88) 100 02/19/17 12:46 85 24 100 02/19/17 12:41 83 33 114/70 100 02/19/17 12:41 83 33 114/70 (85) 100 02/19/17 12:36 83 27 87 02/19/17 12:31 36.7 82 24 112/64 (80) 98 Nasal Cannula 2.0 02/19/17 12:31 82 24 112/64 98 02/19/17 12:26 85 25 96 02/19/17 12:21 82 33 104/62 89 02/19/17 12:16 85 30 96 02/19/17 12:11 84 29 122/66 96 02/19/17 12:06 84 35 98 02/19/17 12:02 112/64 02/19/17 12:01 81 37 98 02/19/17 11:56 85 26 95 02/19/17 11:51 87 26 127/72 95 02/19/17 11:46 86 30 97 02/19/17 11:41 84 27 104/70 98 02/19/17 11:36 84 32 100 02/19/17 11:31 118/67 02/19/17 11:25 85 31 97 02/19/17 11:21 112/68 02/19/17 11:15 89 25 99 02/19/17 11:11 114/74 02/19/17 11:09 98/66 02/19/17 11:05 90 02/19/17 11:01 90 02/19/17 10:48 36.7 89 18 121/76 99 Room Air Physical Exam General Appearance: WD/WN, no apparent distress Eyes: PERRL, EOMI Respiratory/Chest: chest non-tender, lungs clear, normal breath sounds Cardiovascular: regular rate, rhythm, no murmur Abdomen: normal bowel sounds, non tender, soft Extremities: + pedal edema (trace pedal) Neurologic/Psychiatric: alert, oriented x 3 Laboratory Results Last 24 Hours Test 02/19/17 11:10 02/19/17 11:15 02/19/17 16:54 02/19/17 18:14 Bedside Troponin I 0.050 ng/ml White Blood Count 11.19 K/uL Red Blood Count 2.53 M/uL Hemoglobin 8.9 g/dL Hematocrit 25.3 % Mean Corpuscular Volume 100.0 fL Mean Corpuscular Hemoglobin 35.2 pg Mean Corpuscular Hemoglobin Concent 35.2 g/dl Platelet Count 324 K/uL Mean Platelet Volume 10.0 fL Neutrophils (%) (Auto) 44.9 % Lymphocytes (%) (Auto) 38.0 % Monocytes (%) (Auto) 13.3 % Eosinophils (%) (Auto) 3.0 % Basophils (%) (Auto) 0.4 % Neutrophils # (Auto) 5.03 K/uL Lymphocytes # (Auto) 4.25 K/uL Monocytes # (Auto) 1.49 K/uL Eosinophils # (Auto) 0.34 K/uL Basophils # (Auto) 0.04 K/uL Bedside Hemoglobin 8.8 g/dl Bedside Hematocrit 26 % RDW Standard Deviation 63.4 fL RDW Coefficient of Variation 17.9 % Immature Granulocyte % (Auto) 0.4 % Immature Granulocyte # (Auto) 0.04 K/uL Macrocytosis PRESENT Pappenheimer Bodies 1+ Carter-Saxman Bodies 1+ Prothrombin Time 11.7 SECONDS Prothromb Time International Ratio 1.1 Activated Partial Thromboplast Time 30.5 SECONDS Partial Thromboplastin Ratio 1.2 Bedside Sodium 138 mEq/L Sodium Level 139 mmol/L Bedside Potassium 3.3 mEq/L Potassium Level 3.5 mmol/L Bedside Chloride 94 mEq/L Chloride Level 100 mmol/L Carbon Dioxide Level 32 mmol/L Bedside Total CO2 31 mEq/l Anion Gap 18.0 mmol/L Bedside Blood Urea Nitrogen 19 mg/dl Blood Urea Nitrogen 19 mg/dl Creatinine 2.70 mg/dl Bedside Creatinine 2.7 mg/dl Est Creatinine Clear Calc Drug Dose 28.7 ml/min Estimated GFR () 30.5 Estimated GFR (Non- 26.3 BUN/Creatinine Ratio 7.0 Bedside Glucose (other) 101 mg/dl Random Glucose 116 mg/dl Calcium Level 8.4 mg/dl Bedside Ionized Calcium (Bertha) 0.97 mmol/l Total Creatine Kinase 47 U/L 47 U/L Creatine Kinase MB 1.2 ng/ml Creatine Kinase MB Ratio 2.6 Troponin I 0.060 ng/ml 0.301 ng/ml Triglycerides Level 120 mg/dl Cholesterol Level 70 mg/dl HDL Cholesterol 29 mg/dl LDL Cholesterol, Calculated 17 mg/dl VLDL Cholesterol, Calculated 24 mg/dl Cholesterol/HDL Ratio 2.4 Bedside Glucose 117 mg/dl Test 02/20/17 00:12 02/20/17 00:13 02/20/17 05:59 Total Creatine Kinase 44 U/L 40 U/L Troponin I 0.460 ng/ml 0.545 ng/ml Bedside Glucose 149 mg/dl White Blood Count 14.60 K/uL Red Blood Count 2.83 M/uL Hemoglobin 9.6 g/dL Hematocrit 27.8 % Mean Corpuscular Volume 98.2 fL Mean Corpuscular Hemoglobin 33.9 pg Mean Corpuscular Hemoglobin Concent 34.5 g/dl Platelet Count 361 K/uL Mean Platelet Volume 10.5 fL Neutrophils (%) (Auto) 65.7 % Lymphocytes (%) (Auto) 29.9 % Monocytes (%) (Auto) 4.1 % Eosinophils (%) (Auto) 0.0 % Basophils (%) (Auto) 0.1 % Neutrophils # (Auto) 9.59 K/uL Lymphocytes # (Auto) 4.37 K/uL Monocytes # (Auto) 0.60 K/uL Eosinophils # (Auto) 0.00 K/uL Basophils # (Auto) 0.01 K/uL RDW Standard Deviation 62.9 fL RDW Coefficient of Variation 17.9 % Immature Granulocyte % (Auto) 0.2 % Immature Granulocyte # (Auto) 0.03 K/uL Sodium Level 138 mmol/L Potassium Level 5.1 mmol/L Chloride Level 101 mmol/L Carbon Dioxide Level 27 mmol/L Anion Gap 10.0 mmol/L Blood Urea Nitrogen 65 mg/dl Creatinine 4.90 mg/dl Est Creatinine Clear Calc Drug Dose 16.3 ml/min Estimated GFR () 14.8 Estimated GFR (Non- 12.8 BUN/Creatinine Ratio 13.3 Random Glucose 104 mg/dl Calcium Level 8.6 mg/dl Phosphorus Level 5.1 mg/dl Magnesium Level 2.3 mg/dl Total Bilirubin 0.5 mg/dl Aspartate Amino Transf (AST/SGOT) 20 U/L Alanine Aminotransferase (ALT/SGPT) 18 U/L Alkaline Phosphatase 308 U/L Total Protein 7.4 gm/dl Albumin 2.5 gm/dl Globulin 4.9 gm/dl Albumin/Globulin Ratio 0.5 Assessment and Plan 51M with ESRD on HD, presents with chest pain and elevated troponin with some ST changes chest pain consider ACS, Elevated troponin with EKG changes and history of Coronary artery disease status post coronary artery bypass graft. aspirin, atorvastatin and metoprolol. nitro as blood pressure allows, will discuss wether to perform diagnostic cath here vs transfer for diagnostic and therapeutic, cautiously have on heparin given recent epistaxis Acute blood loss anemia with 3 grams of hemoglobin drop secondary to nasal bleed that has been recurrent within the last 2 months, not actively bleeding at this moment. End-stage renal disease on dialysis. likely also anemia of chronic disease Adrenal suppression with history of chronic prednisone, stress dose steroids, initially low blood pressure on admission.
--- NOTE | 2017-02-20 15:34 | Nephrology Consultation ---
Nephrology Consultation Date & Providers Date of Consultation: Feb 20, 2017. Primary Care Provider: Todd Azevedo M.D. Referring Provider: Reason for Consultation ESRD History of Present Illness Mr. Sebastian Segura (Andy) is a 51-year-old male with ESRD. He is on maintenance hemodialysis at [facility] on a MWF schedule under the care of Dr. Azevedo. Dwight completed his scheduled dialysis treatment yesterday. He tolerated a complete treatment without immediate complications. Shortly after hemodialysis while riding home, Dwight experienced a sudden onset of disconcerting chest pain. Symptoms started at rest. This was similar to anginal pain he has experienced in the past. He notes that his blood pressure was low following dialysis and he was reticent to take nitroglycerin. Pain persisted; he presented to the ER. Dwight has a significant history of coronary artery disease. He described the pain as a tightness in his chest as well as stabling retrosternal discomfort. This would occasionally radiate to his jaw. He denies any dyspnea or diaphoresis. Upon presentation EKG documented new later ST-T wave changes. Pain relief was provided with nitroglycerin and morphine. Given the patient's complex coronary history, decision was made to provide medical management and observation. Dwight received 1 unit PRBC transfusion for anemia. A nitroglycerin patch was placed and he was admitted for observation. Unfortunately, he continued to experience chest pain and progressive ST depressions overnight. Heparin gtt is infusing. He states that he continues to have very mild discomfort and is afraid that any amount of exertion would trigger significant pain. He denies palpitations. 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 His second transplant was living donor from his father in 1990. That transplant lasted for 14-15 years. His third transplant was decreased donor in 2009. This failed due to rejection in 2014. # Coronary artery disease status post CABG in April of 2009 with HUMPHREYS to LAD , vein graft to 2 branches of the ramus, prior stents to distal LAD via HUMPHREYS to LAD in September of 2009 as well as stents to the distal left main into circumflex. Last heart catheterization was at [facility] April 2015 which showed a 3-vessel disease, severe 3-vessel disease including 30% left main stenosis, and a total proximal LAD. HUMPHREYS to LAD was patent, vein graft to circumflex and distal POB was patent. In October of 2016, he presented with NSTEMI. At that time underwent a dobutamine stress test which showed inferior ischemia at submaximal heart rate. He has an ischemic cardiomyopathy, last EF 45-50%. # He has a more recent history of complicated cholecystitis requiring cholecystostomy tube placement and eventual cholecystectomy. Treatment course complicated by recurrent bacteremia. # Liver changes concerning for cirrhosis. # Asplenic. # SHABBIR. # Hypertension. # Hyperlipidemia. # Peripheral vascular disease with extensive calcifications of his abdominal aorta and iliacs. 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 More recent gastritis with H pylori. # Recurrent C.diff infection. Surgical: Bilateral quileute nephrectomies, splenectomy and appendectomy Allergies Coded Allergies: POLLEN (Verified Allergy, Unknown, "HAYFEVER", 02/19/17) Diazoxide (Verified Adverse Reaction, Intermediate, ELEVATE BP;N&V, ) NSAIDs (Verified Adverse Reaction, Unknown, KIDNEY TRANSPLANT, 02/19/17) Inpatient Medications Current Inpatient Medications Medications (Trade) Dose Ordered Sig/Amanda Route Start Time Stop Time Status Last Admin Dose Admin Nitroglycerin (Nitrostat Tab) 0.4 mg UD PRN SL 02/19/17 12:15 03/21/17 12:14 02/20/17 08:51 0.4 MG Hydromorphone HCl (Dilaudid Inj) 0.5 mg Q4H PRN IV 02/19/17 12:30 03/05/17 12:29 02/20/17 08:37 0.5 MG Atorvastatin Calcium (Lipitor Tab) 20 mg HS PO 02/19/17 21:00 03/21/17 20:59 02/19/17 20:11 20 MG Clopidogrel Bisulfate (plAVix TAB) 75 mg DAILY PO 02/20/17 09:00 03/22/17 08:59 02/20/17 08:34 75 MG Isosorbide Mononitrate (Imdur Ext Rel Tab) 60 mg BID PO 02/19/17 21:00 03/21/17 20:59 02/20/17 08:34 60 MG Oxycodone HCl (Roxicodone Immediate Rel Tab) 5 mg Q4H PRN PO 02/19/17 12:30 03/05/17 12:29 02/20/17 07:41 5 MG Pantoprazole Sodium (Protonix Tab) 40 mg DAILY PO 02/20/17 09:00 03/22/17 08:59 02/20/17 08:35 40 MG Vitamin B Complex/ Vit C/Folic Acid (Nephrocaps) 1 cap DAILY PO 02/20/17 09:00 03/22/17 08:59 02/20/17 08:34 1 CAP Miscellaneous Information (Order Awaiting Action) 1 ea QS N/A 02/19/17 16:00 03/21/17 15:59 Sevelamer HCl (Renagel Tab) 1,600 mg TIDM PO 02/19/17 16:30 03/21/17 16:29 02/20/17 12:14 1,600 MG Aspirin (Ecotrin Tab) 81 mg QAM PO 02/20/17 09:00 03/22/17 08:59 02/20/17 08:34 81 MG Hydrocortisone Sodium Succinate 100 mg/Syringe 2 ml @ 4 mls/min Q8@0400,1200,2000 IV 02/19/17 20:00 02/21/17 04:01 02/20/17 12:16 4 MLS/MIN Ondansetron HCl (Zofran Inj) 4 mg Q8 PRN IV 02/19/17 14:00 03/21/17 13:59 02/20/17 07:41 4 MG Zolpidem Tartrate (Ambien Tab) 5 mg HS PRN PO 02/19/17 22:00 03/21/17 21:59 02/19/17 22:13 5 MG Nitroglycerin (Nitroglycerin 2% Oint) 1 inch Q6H EXT 02/20/17 00:00 03/22/17 00:00 02/20/17 12:17 1 INCH Fentanyl Citrate (Fentanyl Inj) 25 mcg Q1HWA PRN IV 02/20/17 09:00 03/06/17 08:59 02/20/17 13:01 25 MCG Metoprolol Succinate (Toprol Xl Tab) 50 mg BID PO 02/20/17 21:00 03/22/17 20:59 Heparin Sodium/ Dextrose 500 ml @ 23 mls/hr [id number] PRN IV 02/20/17 11:45 03/22/17 11:44 02/20/17 12:22 23 MLS/HR Family History FH: heart disease Social History Smoking Status: Never Smoker Drug Use: none Marital Status: Housing Status: lives with family Occupation: employed, disabled Review of Systems A complete review of systems was performed. Pertinent positives are noted above. All other systems are negative. Physical Exam Date Time Temp Pulse Resp B/P (MAP) Pulse Ox O2 Delivery O2 Flow Rate FiO2 02/20/17 14:01 78 17 130/68 (88) 99 Nasal Cannula 2.0 02/20/17 12:16 36.4 78 22 130/81 (97) 99 Nasal Cannula 2.0 02/20/17 12:00 Nasal Cannula 2.0 02/20/17 11:01 70 19 116/57 (76) 99 Nasal Cannula 2.0 02/20/17 10:01 72 16 108/62 (77) 99 Nasal Cannula 2.0 02/20/17 09:37 75 11 121/61 (81) 98 Nasal Cannula 2.0 02/20/17 09:16 84 128/68 02/20/17 09:15 85 26 128/68 (88) 100 Nasal Cannula 2.0 02/20/17 09:01 82 15 134/79 (97) 98 Nasal Cannula 2.0 02/20/17 08:31 87 25 135/99 (111) 99 Nasal Cannula 2.0 02/20/17 08:01 36.8 77 20 127/67 (87) 100 Nasal Cannula 2.0 02/20/17 08:00 Nasal Cannula 2.0 02/20/17 07:01 75 13 115/59 (77) 99 Nasal Cannula 2.0 02/20/17 05:46 78 18 172/83 (112) 100 Nasal Cannula 2.0 02/20/17 05:43 84 14 162/97 (118) 100 Nasal Cannula 2.0 02/20/17 05:31 75 16 135/72 (93) 100 Nasal Cannula 2.0 02/20/17 05:16 73 26 121/58 (79) 99 Nasal Cannula 2.0 02/20/17 05:01 76 19 114/60 (78) 98 Nasal Cannula 2.0 02/20/17 04:46 71 18 100/47 (64) 100 Nasal Cannula 2.0 02/20/17 04:31 72 27 89/41 (57) 100 Nasal Cannula 2.0 02/20/17 04:16 74 21 86/43 (57) 100 Nasal Cannula 2.0 02/20/17 04:01 36.6 71 17 92/54 (67) 100 Nasal Cannula 2.0 02/20/17 04:00 Nasal Cannula 2.0 02/20/17 03:46 74 16 124/60 (81) 100 Nasal Cannula 2.0 02/20/17 03:31 75 19 105/59 (74) 99 Nasal Cannula 2.0 02/20/17 03:01 73 22 95/50 (65) 99 Nasal Cannula 2.0 02/20/17 02:31 70 26 106/52 (70) 98 Nasal Cannula 2.0 02/20/17 02:01 77 16 93/55 (68) 91 Nasal Cannula 2.0 02/20/17 01:32 77 18 135/60 (85) 94 Nasal Cannula 2.0 02/20/17 01:01 79 23 102/66 (78) 98 Nasal Cannula 2.0 02/20/17 00:31 78 19 108/58 (75) 98 Nasal Cannula 2.0 02/20/17 00:01 36.6 81 18 101/64 (76) 97 Nasal Cannula 2.0 02/20/17 00:01 Nasal Cannula 2.0 02/19/17 23:46 79 24 115/54 (74) 98 Nasal Cannula 2.0 02/19/17 23:31 83 26 102/59 (73) 95 Nasal Cannula 2.0 02/19/17 23:16 81 20 132/66 (88) 98 Nasal Cannula 2.0 02/19/17 23:01 79 18 100/60 (73) 99 Nasal Cannula 2.0 02/19/17 22:46 80 18 107/58 (74) 98 Nasal Cannula 2.0 02/19/17 22:31 77 24 112/65 (81) 99 Nasal Cannula 2.0 02/19/17 22:16 82 17 133/73 (93) 99 Nasal Cannula 2.0 02/19/17 22:01 81 15 128/69 (88) 100 Nasal Cannula 2.0 02/19/17 21:46 77 21 126/65 (85) 99 Nasal Cannula 2.0 02/19/17 21:31 83 18 112/68 (83) 90 Room Air 02/19/17 21:16 81 20 122/69 (86) 95 Room Air 02/19/17 21:01 81 15 125/69 (87) 98 Room Air 02/19/17 20:46 81 23 124/66 (85) 91 Room Air 02/19/17 20:31 81 20 131/70 (90) 94 Room Air 02/19/17 20:16 81 14 145/76 (99) 99 Room Air 02/19/17 20:01 36.8 81 21 121/70 (87) 99 Room Air 02/19/17 20:00 Nasal Cannula 2.0 02/19/17 19:46 78 15 129/65 (86) 99 Room Air 02/19/17 19:31 81 18 147/73 (97) 100 Room Air 02/19/17 19:16 80 18 128/75 (92) 99 Room Air 02/19/17 19:01 82 13 142/75 (97) 98 Room Air 02/19/17 19:00 80 17 100 02/19/17 18:15 79 20 100 02/19/17 18:01 81 15 140/64 (89) 99 02/19/17 18:00 80 18 99 02/19/17 17:46 78 9 131/83 (99) 98 Nasal Cannula 2.0 02/19/17 17:31 36.7 80 18 156/74 (101) 100 Nasal Cannula 2.0 02/19/17 17:16 36.8 79 19 154/79 (104) 99 02/19/17 17:02 36.7 79 17 145/80 (101) 99 02/19/17 16:42 84 21 127/73 (91) 97 02/19/17 16:32 82 26 168/66 (100) 100 02/19/17 16:16 85 15 111/76 (88) 100 02/19/17 16:05 98 Nasal Cannula 2.0 02/19/17 16:01 36.7 80 19 138/68 (91) 99 02/19/17 15:46 82 23 146/58 (87) 99 02/19/17 15:32 85 13 159/91 (113) 100 02/19/17 15:16 83 21 144/51 (82) 95 02/19/17 15:02 83 19 137/75 (95) 98 02/19/17 14:47 85 25 128/56 (80) 97 02/19/17 14:31 84 35 117/64 (81) 99 General Appearance: WD/WN, no apparent distress Head: normocephalic, atraumatic Eyes: normal inspection, sclerae normal ENT: normal ENT inspection, pharynx normal Neck: supple, no JVD Respiratory/Chest: lungs clear, no respiratory distress, no accessory muscle use Cardiovascular: regular rate, rhythm, no gallop Abdomen/GI: non tender, soft Extremities/Musculoskelatal: normal inspection, no pedal edema, + pertinent finding (LUE AVF with thrill and bruit) Skin: normal color, no rash Laboratory Results Last 24 Hours Test 02/19/17 16:54 02/19/17 18:14 02/20/17 00:12 02/20/17 00:13 Bedside Glucose 117 mg/dl 149 mg/dl Total Creatine Kinase 47 U/L 44 U/L Troponin I 0.301 ng/ml 0.460 ng/ml Test 02/20/17 05:59 02/20/17 11:51 White Blood Count 14.60 K/uL Red Blood Count 2.83 M/uL Hemoglobin 9.6 g/dL Hematocrit 27.8 % Mean Corpuscular Volume 98.2 fL Mean Corpuscular Hemoglobin 33.9 pg Mean Corpuscular Hemoglobin Concent 34.5 g/dl Platelet Count 361 K/uL Mean Platelet Volume 10.5 fL Neutrophils (%) (Auto) 65.7 % Lymphocytes (%) (Auto) 29.9 % Monocytes (%) (Auto) 4.1 % Eosinophils (%) (Auto) 0.0 % Basophils (%) (Auto) 0.1 % Neutrophils # (Auto) 9.59 K/uL Lymphocytes # (Auto) 4.37 K/uL Monocytes # (Auto) 0.60 K/uL Eosinophils # (Auto) 0.00 K/uL Basophils # (Auto) 0.01 K/uL RDW Standard Deviation 62.9 fL RDW Coefficient of Variation 17.9 % Immature Granulocyte % (Auto) 0.2 % Immature Granulocyte # (Auto) 0.03 K/uL Sodium Level 138 mmol/L Potassium Level 5.1 mmol/L Chloride Level 101 mmol/L Carbon Dioxide Level 27 mmol/L Anion Gap 10.0 mmol/L Blood Urea Nitrogen 65 mg/dl Creatinine 4.90 mg/dl Est Creatinine Clear Calc Drug Dose 16.3 ml/min Estimated GFR () 14.8 Estimated GFR (Non- 12.8 BUN/Creatinine Ratio 13.3 Random Glucose 104 mg/dl Estimated Average Glucose 111 mg/dl Hemoglobin A1c 5.5 % Calcium Level 8.6 mg/dl Phosphorus Level 5.1 mg/dl Magnesium Level 2.3 mg/dl Total Bilirubin 0.5 mg/dl Aspartate Amino Transf (AST/SGOT) 20 U/L Alanine Aminotransferase (ALT/SGPT) 18 U/L Alkaline Phosphatase 308 U/L Total Creatine Kinase 40 U/L 45 U/L Troponin I 0.545 ng/ml 0.576 ng/ml Total Protein 7.4 gm/dl Albumin 2.5 gm/dl Globulin 4.9 gm/dl Albumin/Globulin Ratio 0.5 Prothrombin Time 11.4 SECONDS Prothromb Time International Ratio 1.1 Activated Partial Thromboplast Time 29.4 SECONDS Partial Thromboplastin Ratio 1.1 Impression (1) End-stage renal disease on hemodialysis (2) NSTEMI (non-ST elevated myocardial infarction) (3) Anemia (4) Chronic systolic CHF (congestive heart failure) Mr. 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 He is on HD MWF at [facility]. Medical history is notable for an extensive history of cardiovascular disease. He was admitted with NSTEMI. Blood pressure and volume status are currently appropriate. Metabolic profile acceptable. He remains hemodynamically stable. He did receive 1 unit PRBC transfusion for anemia. There has been no signs of bleeding. Heparin gtt is infusion. There is no urgent indication for dialysis. Medications are appropriately dosed for renal function. Nephrology will continue to follow for adjustments as needed given ESRD. Anemia will be monitored with serial labs. No additional changes at this time. Approximately 35 minutes of critical care time provided today.
[2017-02-20] MEDS ORDERED: NURSING VERBAL MED ORDER ONE (16:00)
--- NOTE | 2017-02-20 18:42 | Critical Care Progress Note ---
Critical Care Progress Note Date of Service Feb 20, 2017. Attending Dr. Lanza Subjective Occasional chest pain requiring nitrates and narcotics. Otherwise doing well Objective General Appearance: well-appearing, WD/WN, no apparent distress Head: normocephalic, atraumatic Eyes: PERRLA Neck: no tenderness, trachea midline, supple Respiratory: breath sounds normal, clear to auscultation, no respiratory distress Cardiovasular: regular rate/rhythm, normal S1S2, systolic murmur (best heard in aortic point) Upper Extremities: no edema, other (left arm AV fistula) Lower Extremities: no edema Neuro: alert, oriented x 3, normal motor exam, normal sensation Assessment & Plan 51 year old male with h/o CAD, ESRD on HD admitted with NSTEMI and ongoing chest pain Problems: NSTEMI CAD Anemia Ischemic cardiomyopathy ESRD on HD Plan: Continue Imdur. If needed, resume NTG drip Start heparin drip. Continue ASA and Plavix. Started on metoprolol Considering repeat cath, but it would be very high risk Had HD yesterday, scheduled session is for Wednesday S/p transfusion of 1 unit PRBC with appropriate response. Stress dose steroids, he is on chronic Prednisone 5 mg Critical care time spent 25 minutes Consults & Procedures Consultants: Dr Molina - Cardiology Dr Ennis - nephrology Procedures: None Data Medications: Current Inpatient Medications Medications (Trade) Dose Ordered Sig/Amanda Route Start Time Stop Time Status Last Admin Dose Admin Nitroglycerin (Nitrostat Tab) 0.4 mg UD PRN SL 02/19/17 12:15 03/21/17 12:14 02/20/17 08:51 0.4 MG Hydromorphone HCl (Dilaudid Inj) 0.5 mg Q4H PRN IV 02/19/17 12:30 03/05/17 12:29 02/20/17 08:37 0.5 MG Atorvastatin Calcium (Lipitor Tab) 20 mg HS PO 02/19/17 21:00 03/21/17 20:59 02/19/17 20:11 20 MG Clopidogrel Bisulfate (plAVix TAB) 75 mg DAILY PO 02/20/17 09:00 03/22/17 08:59 02/20/17 08:34 75 MG Isosorbide Mononitrate (Imdur Ext Rel Tab) 60 mg BID PO 02/19/17 21:00 03/21/17 20:59 02/20/17 08:34 60 MG Oxycodone HCl (Roxicodone Immediate Rel Tab) 5 mg Q4H PRN PO 02/19/17 12:30 03/05/17 12:29 02/20/17 07:41 5 MG Pantoprazole Sodium (Protonix Tab) 40 mg DAILY PO 02/20/17 09:00 03/22/17 08:59 02/20/17 08:35 40 MG Vitamin B Complex/ Vit C/Folic Acid (Nephrocaps) 1 cap DAILY PO 02/20/17 09:00 03/22/17 08:59 02/20/17 08:34 1 CAP Miscellaneous Information (Order Awaiting Action) 1 ea QS N/A 02/19/17 16:00 03/21/17 15:59 Sevelamer HCl (Renagel Tab) 1,600 mg TIDM PO 02/19/17 16:30 03/21/17 16:29 02/20/17 17:15 1,600 MG Aspirin (Ecotrin Tab) 81 mg QAM PO 02/20/17 09:00 03/22/17 08:59 02/20/17 08:34 81 MG Hydrocortisone Sodium Succinate 100 mg/Syringe 2 ml @ 4 mls/min Q8@0400,1200,2000 IV 02/19/17 20:00 02/21/17 04:01 02/20/17 12:16 4 MLS/MIN Ondansetron HCl (Zofran Inj) 4 mg Q8 PRN IV 02/19/17 14:00 03/21/17 13:59 02/20/17 07:41 4 MG Zolpidem Tartrate (Ambien Tab) 5 mg HS PRN PO 02/19/17 22:00 03/21/17 21:59 02/19/17 22:13 5 MG Nitroglycerin (Nitroglycerin 2% Oint) 1 inch Q6H EXT 02/20/17 00:00 03/22/17 00:00 02/20/17 17:16 1 INCH Fentanyl Citrate (Fentanyl Inj) 25 mcg Q1HWA PRN IV 02/20/17 09:00 03/06/17 08:59 02/20/17 15:42 25 MCG Metoprolol Succinate (Toprol Xl Tab) 50 mg BID PO 02/20/17 21:00 03/22/17 20:59 Heparin Sodium/ Dextrose 500 ml @ 23 mls/hr [id number] PRN IV 02/20/17 11:45 03/22/17 11:44 Future Hold 02/20/17 12:22 23 MLS/HR I & O: 24-Hour Column 02/21/17 08:00 Intake Total 600 ml Balance 600 ml Vital Signs: Date Time Temp Pulse Resp B/P (MAP) Pulse Ox O2 Delivery O2 Flow Rate FiO2 02/20/17 17:01 78 18 129/71 (90) 96 Nasal Cannula 2.0 02/20/17 16:01 36.6 76 15 120/62 (81) 95 Nasal Cannula 2.0 02/20/17 16:00 Nasal Cannula 2.0 02/20/17 15:46 78 20 119/64 (82) 96 Nasal Cannula 2.0 02/20/17 15:01 79 17 132/67 (88) 99 Nasal Cannula 2.0 02/20/17 14:01 78 17 130/68 (88) 99 Nasal Cannula 2.0 02/20/17 12:16 36.4 78 22 130/81 (97) 99 Nasal Cannula 2.0 02/20/17 12:00 Nasal Cannula 2.0 02/20/17 11:01 70 19 116/57 (76) 99 Nasal Cannula 2.0 02/20/17 10:01 72 16 108/62 (77) 99 Nasal Cannula 2.0 02/20/17 09:37 75 11 121/61 (81) 98 Nasal Cannula 2.0 02/20/17 09:16 84 128/68 02/20/17 09:15 85 26 128/68 (88) 100 Nasal Cannula 2.0 02/20/17 09:01 82 15 134/79 (97) 98 Nasal Cannula 2.0 02/20/17 08:31 87 25 135/99 (111) 99 Nasal Cannula 2.0 02/20/17 08:01 36.8 77 20 127/67 (87) 100 Nasal Cannula 2.0 02/20/17 08:00 Nasal Cannula 2.0 02/20/17 07:01 75 13 115/59 (77) 99 Nasal Cannula 2.0 02/20/17 05:46 78 18 172/83 (112) 100 Nasal Cannula 2.0 02/20/17 05:43 84 14 162/97 (118) 100 Nasal Cannula 2.0 02/20/17 05:31 75 16 135/72 (93) 100 Nasal Cannula 2.0 02/20/17 05:16 73 26 121/58 (79) 99 Nasal Cannula 2.0 02/20/17 05:01 76 19 114/60 (78) 98 Nasal Cannula 2.0 02/20/17 04:46 71 18 100/47 (64) 100 Nasal Cannula 2.0 02/20/17 04:31 72 27 89/41 (57) 100 Nasal Cannula 2.0 02/20/17 04:16 74 21 86/43 (57) 100 Nasal Cannula 2.0 02/20/17 04:01 36.6 71 17 92/54 (67) 100 Nasal Cannula 2.0 02/20/17 04:00 Nasal Cannula 2.0 02/20/17 03:46 74 16 124/60 (81) 100 Nasal Cannula 2.0 02/20/17 03:31 75 19 105/59 (74) 99 Nasal Cannula 2.0 02/20/17 03:01 73 22 95/50 (65) 99 Nasal Cannula 2.0 02/20/17 02:31 70 26 106/52 (70) 98 Nasal Cannula 2.0 02/20/17 02:01 77 16 93/55 (68) 91 Nasal Cannula 2.0 02/20/17 01:32 77 18 135/60 (85) 94 Nasal Cannula 2.0 02/20/17 01:01 79 23 102/66 (78) 98 Nasal Cannula 2.0 02/20/17 00:31 78 19 108/58 (75) 98 Nasal Cannula 2.0 02/20/17 00:01 36.6 81 18 101/64 (76) 97 Nasal Cannula 2.0 02/20/17 00:01 Nasal Cannula 2.0 02/19/17 23:46 79 24 115/54 (74) 98 Nasal Cannula 2.0 02/19/17 23:31 83 26 102/59 (73) 95 Nasal Cannula 2.0 02/19/17 23:16 81 20 132/66 (88) 98 Nasal Cannula 2.0 02/19/17 23:01 79 18 100/60 (73) 99 Nasal Cannula 2.0 02/19/17 22:46 80 18 107/58 (74) 98 Nasal Cannula 2.0 02/19/17 22:31 77 24 112/65 (81) 99 Nasal Cannula 2.0 02/19/17 22:16 82 17 133/73 (93) 99 Nasal Cannula 2.0 02/19/17 22:01 81 15 128/69 (88) 100 Nasal Cannula 2.0 02/19/17 21:46 77 21 126/65 (85) 99 Nasal Cannula 2.0 02/19/17 21:31 83 18 112/68 (83) 90 Room Air 02/19/17 21:16 81 20 122/69 (86) 95 Room Air 02/19/17 21:01 81 15 125/69 (87) 98 Room Air 02/19/17 20:46 81 23 124/66 (85) 91 Room Air 02/19/17 20:31 81 20 131/70 (90) 94 Room Air 02/19/17 20:16 81 14 145/76 (99) 99 Room Air 02/19/17 20:01 36.8 81 21 121/70 (87) 99 Room Air 02/19/17 20:00 Nasal Cannula 2.0 02/19/17 19:46 78 15 129/65 (86) 99 Room Air 02/19/17 19:31 81 18 147/73 (97) 100 Room Air 02/19/17 19:16 80 18 128/75 (92) 99 Room Air 02/19/17 19:01 82 13 142/75 (97) 98 Room Air 02/19/17 19:00 80 17 100 Laboratory Results: Last 24 Hours Test 02/20/17 00:12 02/20/17 00:13 02/20/17 05:59 02/20/17 11:51 Total Creatine Kinase 44 U/L 40 U/L 45 U/L Troponin I 0.460 ng/ml 0.545 ng/ml 0.576 ng/ml Bedside Glucose 149 mg/dl White Blood Count 14.60 K/uL Red Blood Count 2.83 M/uL Hemoglobin 9.6 g/dL Hematocrit 27.8 % Mean Corpuscular Volume 98.2 fL Mean Corpuscular Hemoglobin 33.9 pg Mean Corpuscular Hemoglobin Concent 34.5 g/dl Platelet Count 361 K/uL Mean Platelet Volume 10.5 fL Neutrophils (%) (Auto) 65.7 % Lymphocytes (%) (Auto) 29.9 % Monocytes (%) (Auto) 4.1 % Eosinophils (%) (Auto) 0.0 % Basophils (%) (Auto) 0.1 % Neutrophils # (Auto) 9.59 K/uL Lymphocytes # (Auto) 4.37 K/uL Monocytes # (Auto) 0.60 K/uL Eosinophils # (Auto) 0.00 K/uL Basophils # (Auto) 0.01 K/uL RDW Standard Deviation 62.9 fL RDW Coefficient of Variation 17.9 % Immature Granulocyte % (Auto) 0.2 % Immature Granulocyte # (Auto) 0.03 K/uL Sodium Level 138 mmol/L Potassium Level 5.1 mmol/L Chloride Level 101 mmol/L Carbon Dioxide Level 27 mmol/L Anion Gap 10.0 mmol/L Blood Urea Nitrogen 65 mg/dl Creatinine 4.90 mg/dl Est Creatinine Clear Calc Drug Dose 16.3 ml/min Estimated GFR () 14.8 Estimated GFR (Non- 12.8 BUN/Creatinine Ratio 13.3 Random Glucose 104 mg/dl Estimated Average Glucose 111 mg/dl Hemoglobin A1c 5.5 % Calcium Level 8.6 mg/dl Phosphorus Level 5.1 mg/dl Magnesium Level 2.3 mg/dl Total Bilirubin 0.5 mg/dl Aspartate Amino Transf (AST/SGOT) 20 U/L Alanine Aminotransferase (ALT/SGPT) 18 U/L Alkaline Phosphatase 308 U/L Total Protein 7.4 gm/dl Albumin 2.5 gm/dl Globulin 4.9 gm/dl Albumin/Globulin Ratio 0.5 Prothrombin Time 11.4 SECONDS Prothromb Time International Ratio 1.1 Activated Partial Thromboplast Time 29.4 SECONDS Partial Thromboplastin Ratio 1.1
[2017-02-20] MEDS: METOPROLOL SUCC 50MG EXT REL TAB PO SCH (19:34)
[2017-02-20] MEDS: ATORVASTATIN 20 MG TAB PO SCH (19:34)
[2017-02-20] MEDS: ZOLPIDEM TARTRATE 5 MG TAB PO PRN (22:02)
[2017-02-21] VITALS (29 sets, daily range): BP systolic 86–161; BP diastolic 47–91; PULSE 65–76; TEMP 36.4–36.7; O2SAT 93–100
[2017-02-21] MEDS: NITROGLYCERIN OINT 2% 1GM PACKET EXT SCH ×4 (00:27→16:36)
[2017-02-21] MEDS: HYDROCORTISONE IV 100 MG in SYRINGE 0 ML IV SCH (04:23)
[2017-02-21 05:50] LABS: HEMATOCRIT 23.6 % (42-52); MEAN CELL VOLUME 95.9 fL (80-100); MEAN CORPUSCULAR HEMOGLOBIN 32.1 pg (25-34); MEAN CORPUSCULAR HGB CONC 33.5 g/dl (32-36); MEAN PLATELET VOLUME 10.1 fL (7.4-10.4); PLATELET COUNT 320 K/uL (130-400); RED BLOOD COUNT 2.46 M/uL (4.7-6.1); WHITE BLOOD COUNT 15.35 K/uL (4.8-10.8)
[2017-02-21 06:07] LABS: PARTIAL THROMBOPLASTIN RATIO 1.1
[2017-02-21] MEDS: ISOSORBIDE MONONITRATE 60 MG TABCR PO SCH ×2 (07:26→20:01)
[2017-02-21] MEDS: CLOPIDOGREL BISULFATE 75 MG TAB PO SCH (07:27)
[2017-02-21] MEDS: METOPROLOL SUCC 50MG EXT REL TAB PO SCH ×2 (07:27→20:00)
[2017-02-21] MEDS: SEVELAMER HYDROCH 800 MG TAB PO SCH ×3 (07:27→16:36)
[2017-02-21] MEDS: NEPHROCAPS PO SCH (07:27)
[2017-02-21] MEDS: PANTOprazole SOD 40 MG TAB PO SCH (07:27)
[2017-02-21] MEDS: ASPIRIN 81 MG ECTAB PO SCH (07:27)
[2017-02-21] MEDS: NITROGLYCERIN 0.4 MG SL PER TAB CHARGE SL PRN ×3 (08:20→21:30)
[2017-02-21] MEDS: HYDROmorphone INJ 0.5 MG/0.5 ML SYR IV PRN ×3 (08:22→21:31)
--- NOTE | 2017-02-21 09:57 | Nephrology Progress Note ---
Nephrology Progress Note Date of Service Feb 21, 2017. Chief Complaint ESRD Subjective Sebastian developed a significant nosebleed overnight. He does recall that he did have one on Wednesday as well. He denies any other evidence of bleeding. After a few hours, bleeding was stopped with compression. Heparin gtt has been stopped. Sebastian continues to experience some mild chest discomfort which he rates as 2/10. He denies shortness of breath. He has not experienced fevers or chills. Review of Systems A complete review of systems was performed. Pertinent positives are noted above. All other systems are negative. Vital Signs Last 8 Hrs Date Time Temp Pulse Resp B/P (MAP) Pulse Ox O2 Delivery O2 Flow Rate FiO2 02/21/17 08:20 76 22 161/91 (114) 100 Room Air 02/21/17 08:01 36.4 72 18 130/74 (92) 97 Room Air 02/21/17 08:00 Room Air 02/21/17 07:31 73 22 131/76 (94) 96 Room Air 02/21/17 07:01 68 17 100/57 (71) 96 Room Air 02/21/17 06:01 73 17 113/61 (78) 100 Nasal Cannula 2.0 02/21/17 05:31 70 21 94/51 (65) 96 Nasal Cannula 2.0 02/21/17 05:01 70 16 112/58 (76) 95 Nasal Cannula 2.0 02/21/17 04:31 68 18 101/50 (67) 95 Nasal Cannula 2.0 02/21/17 04:01 36.7 72 14 108/56 (73) 96 Nasal Cannula 2.0 02/21/17 04:00 Nasal Cannula 2.0 02/21/17 03:31 69 22 93/51 (65) 93 Nasal Cannula 2.0 02/21/17 03:01 73 15 95/52 (66) 95 Nasal Cannula 2.0 02/21/17 02:31 68 26 91/54 (66) 96 Nasal Cannula 2.0 02/21/17 02:01 68 27 86/47 (60) 98 Nasal Cannula 2.0 Last Recorded Weight Weight (Kilograms): 62.200 Physical Exam General Appearance: WD/WN, no apparent distress Head: normocephalic, atraumatic Eyes: normal inspection, sclerae normal ENT: normal ENT inspection, pharynx normal Neck: supple, no JVD Respiratory/Chest: lungs clear, no respiratory distress, no accessory muscle use Cardiovascular: regular rate, rhythm, no gallop, no murmur Abdomen/GI: non tender, soft Extremities/Musculoskelatal: normal inspection, no pedal edema, + pertinent finding (AVF with thrill and bruit) Neurologic/Psych: alert, oriented x 3 Family History FH: heart disease Social History Smoking Status: Never smoker Drug Use: none Marital Status: Housing Status: lives with family Occupation: employed, disabled Laboratory Results Past 24 Hours 02/21/17 05:35 Test 02/20/17 11:51 02/21/17 00:12 02/21/17 05:34 02/21/17 05:35 Prothrombin Time 11.4 SECONDS (9.0-12.0) Prothromb Time International Ratio 1.1 (0.9-1.1) Activated Partial Thromboplast Time 29.4 SECONDS (21.0-31.0) 28.5 SECONDS (21.0-31.0) Partial Thromboplastin Ratio 1.1 1.1 Total Creatine Kinase 45 U/L (39-308) Troponin I 0.576 ng/ml (0-0.045) Bedside Glucose 154 mg/dl (70-99) Red Blood Count 2.46 M/uL (4.7-6.1) Mean Corpuscular Volume 95.9 fL (80-100) Mean Corpuscular Hemoglobin 32.1 pg (25-34) Mean Corpuscular Hemoglobin Concent 33.5 g/dl (32-36) RDW Standard Deviation 61.9 fL (36.4-46.3) RDW Coefficient of Variation 17.7 % (11.5-14.5) Mean Platelet Volume 10.1 fL (7.4-10.4) Nucleated RBC Absolute Count (auto) 0.02 K/uL (0-0) Nucleated Red Blood Cells % 0.1 % Allergies Coded Allergies: POLLEN (Verified Allergy, Unknown, "HAYFEVER", 02/19/17) Diazoxide (Verified Adverse Reaction, Intermediate, ELEVATE BP;N&V, ) NSAIDs (Verified Adverse Reaction, Unknown, KIDNEY TRANSPLANT, 02/19/17) Medications Current Inpatient Medications Medications (Trade) Dose Ordered Sig/Amanda Route Start Time Stop Time Status Last Admin Dose Admin Nitroglycerin (Nitrostat Tab) 0.4 mg UD PRN SL 02/19/17 12:15 03/21/17 12:14 02/21/17 08:20 0.4 MG Hydromorphone HCl (Dilaudid Inj) 0.5 mg Q4H PRN IV 02/19/17 12:30 03/05/17 12:29 02/21/17 08:22 0.5 MG Atorvastatin Calcium (Lipitor Tab) 20 mg HS PO 02/19/17 21:00 03/21/17 20:59 02/20/17 19:34 20 MG Clopidogrel Bisulfate (plAVix TAB) 75 mg DAILY PO 02/20/17 09:00 03/22/17 08:59 02/21/17 07:27 75 MG Isosorbide Mononitrate (Imdur Ext Rel Tab) 60 mg BID PO 02/19/17 21:00 03/21/17 20:59 02/21/17 07:26 60 MG Oxycodone HCl (Roxicodone Immediate Rel Tab) 5 mg Q4H PRN PO 02/19/17 12:30 03/05/17 12:29 02/20/17 20:19 5 MG Pantoprazole Sodium (Protonix Tab) 40 mg DAILY PO 02/20/17 09:00 03/22/17 08:59 02/21/17 07:27 40 MG Vitamin B Complex/ Vit C/Folic Acid (Nephrocaps) 1 cap DAILY PO 02/20/17 09:00 03/22/17 08:59 02/21/17 07:27 1 CAP Miscellaneous Information (Order Awaiting Action) 1 ea QS N/A 02/19/17 16:00 03/21/17 15:59 Sevelamer HCl (Renagel Tab) 1,600 mg TIDM PO 02/19/17 16:30 03/21/17 16:29 02/21/17 07:27 1,600 MG Aspirin (Ecotrin Tab) 81 mg QAM PO 02/20/17 09:00 03/22/17 08:59 02/21/17 07:27 81 MG Ondansetron HCl (Zofran Inj) 4 mg Q8 PRN IV 02/19/17 14:00 03/21/17 13:59 02/20/17 07:41 4 MG Zolpidem Tartrate (Ambien Tab) 5 mg HS PRN PO 02/19/17 22:00 03/21/17 21:59 02/20/17 22:02 5 MG Nitroglycerin (Nitroglycerin 2% Oint) 1 inch Q6H EXT 02/20/17 00:00 03/22/17 00:00 02/21/17 06:48 1 INCH Fentanyl Citrate (Fentanyl Inj) 25 mcg Q1HWA PRN IV 02/20/17 09:00 03/06/17 08:59 02/20/17 19:31 25 MCG Metoprolol Succinate (Toprol Xl Tab) 50 mg BID PO 02/20/17 21:00 03/22/17 20:59 02/21/17 07:27 50 MG Heparin Sodium/ Dextrose 500 ml @ 23 mls/hr [id number] PRN IV 02/20/17 11:45 03/22/17 11:44 Future Hold 02/20/17 12:22 23 MLS/HR Impression (1) End-stage renal disease on hemodialysis (2) NSTEMI (non-ST elevated myocardial infarction) (3) Anemia (4) Chronic systolic CHF (congestive heart failure) Mr. 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 He is on HD MWF at [facility]. Medical history is notable for an extensive history of cardiovascular disease. He was admitted with NSTEMI. Blood pressure and volume status are currently appropriate. Metabolic profile acceptable. He did receive 1 unit PRBC transfusion for anemia on admission. 2 units were cross matched. Blood loss noted overnight following GI bleed. I have asked that the 2nd washed unit be transfused this morning. Medications are appropriately dosed for renal function. Will plan on dialysis tomorrow per MWF schedule.
--- NOTE | 2017-02-21 11:44 | CARDIOLOGY PROGRESS NOTE ---
DATE: 02/21/2017 HISTORY OF PRESENT ILLNESS: The patient was seen by me this morning in his intensive care unit room. He was started on intravenous heparin yesterday. He thereafter developed bleeding from his left naris. Heparin was discontinued. He had recurrent bleeding throughout the day. No current bleeding from his nose. He had no chest pain since yesterday morning, until this morning. He then had retrosternal tightness at rest. Relieved with sublingual nitroglycerin and intravenous Dilaudid. He estimates that the total duration of the discomfort was 15 minutes. Currently, no complaints of any significant chest discomfort. He states he has a vague sensation of upper retrosternal chest tightness at this time. However, he is resting comfortably in bed and appears to be in no distress. Appetite is good. No abdominal pain or nausea. No orthopnea or PND. No dyspnea. No leg pain. No other symptoms of bleeding. No neurologic complaints. CURRENT MEDICATIONS: Metoprolol succinate ER 50 mg b.i.d., clopidogrel 75 mg daily, pantoprazole 40 mg daily, Nephrocaps 1 daily, aspirin 81 mg daily, nitroglycerin ointment 1 inch q. 6 hours, atorvastatin 20 mg at bedtime, isosorbide mononitrate 60 mg b.i.d., Renagel 1600 mg t.i.d. and p.r.n. analgesics including Dilaudid, oxycodone, and fentanyl. ALLERGIES AND ADVERSE DRUG REACTIONS: DIAZOXIDE AND NONSTEROIDAL ANTI-INFLAMMATORY DRUGS. Monitor history reveals sinus rhythm. No arrhythmias. PHYSICAL EXAMINATION: VITAL SIGNS: Most recent vital signs with pulse 70, blood pressure 137/80, and pulse oximetry on room air 100%. Oral temperature this morning was 36.4. NECK: Jugular venous pressure approximately 8 cm. LUNGS: Normal respiratory effort. Clear. No rales or wheezes. HEART: Regular rate and rhythm. S1 and S2 normal. 2/6 systolic murmur at the second intercostal space. 3/6 systolic murmur at the left lower sternal border. No diastolic murmur or rub. No S3. ABDOMEN: Soft. Nontender. No palpable masses or organomegaly. NOSE: No active bleeding. EXTREMITIES: No pretibial edema. No calf tenderness. No cyanosis or clubbing. NEUROLOGIC: Alert and oriented x3. Motor grossly intact. PSYCHIATRIC: Affect is normal. Electrocardiogram this morning with normal sinus rhythm, ST depressions and T-wave inversions in leads 2, 3, aVF, V2-V6 consistent with ischemia. LABORATORY DATA: This morning with WBC 15.35, hemoglobin 7.9, hematocrit 23.6, and platelet count 320. Troponin I not performed today. Metabolic profile not performed today. ASSESSMENT: 1. Non-ST elevation myocardial infarction. Recurring episodes of chest discomfort at rest. Electrocardiogram with anterolateral and inferior ST and T wave abnormalities consistent with ischemia. Underlying severe coronary artery disease. Most recent cardiac catheterization in 2014 revealed total proximal LAD occlusion, subtotal left circumflex occlusion, and severe stenosis in the mid segment of nondominant RCA. Patent internal mammary artery graft to LAD. Patent saphenous vein graft to left circumflex system except for report of occlusion of the vein graft to what was felt to be a left circumflex first marginal branch. 2. No evidence of congestive heart failure on exam. 3. Worsening of anemia after further epistaxis yesterday. This occurred after being restarted on heparin. No current active bleeding. Hemoglobin decreased from yesterday. No other symptoms of bleeding. 4. Chronic kidney disease. 5. No current signs or symptoms of pulmonary vascular congestion. 6. End-stage renal disease. He is scheduled for dialysis tomorrow. 7. Mild elevated blood pressure. PLAN: 1. Hold off on any further heparin at this time. 2. He is scheduled to undergo transfusion of 1 unit packed red blood cells today. 3. Continue current cardiac medications. 4. From a cardiac standpoint, the patient can be transferred to the telemetry unit bed. 5. Dialysis tomorrow as scheduled. 6. It has been recommended to the patient that he undergo repeat cardiac catheterization. He is now agreeable to undergoing this procedure. He would like to have it performed at [facility]. The cardiac sanitation laborer is having an equipment update tomorrow. It is planned to perform emergency cardiac catheterization procedures if necessary in the electrophysiology lab. His catheterization would be an elective procedure. We will hold off on performing until the regular cardiac catheterization lab is back in service. The patient is aware of this. He desires to remain hospitalized until his catheterization procedure is performed. 7. Recheck troponin I tomorrow. 8. Check echocardiogram to reassess left ventricular function and wall motion. NICA
[2017-02-21] MEDS: FENTANYL CITRATE INJ 50 MCG/1 ML 2 ML VIAL IV PRN (11:46)
--- NOTE | 2017-02-21 15:26 | Progress Note ---
Subjective Date of Service: Feb 21, 2017. Subjective pt has no further chest pain, is awaiting possible left heart cath. Problem List Medical Problems: (1) Acute coronary syndrome Status: Acute (2) Atrial flutter with rapid ventricular response Status: Acute (3) Chest pain Status: Acute (4) Chest pain Status: Acute (5) Chest pain Status: Acute (6) Elevated troponin Status: Acute (7) Elevated troponin Status: Acute (8) End stage renal disease Status: Acute (9) Epistaxis Status: Acute (10) ESRD (end stage renal disease) Status: Acute (11) GI bleed Status: Acute (12) Hyperbilirubinemia Status: Acute (13) Lower GI bleeding Status: Acute (14) Peptic ulcer disease Status: Acute (15) Precordial chest pain Status: Acute (16) RUQ abdominal pain Status: Acute (17) Sepsis Status: Acute (18) Sepsis Status: Acute (19) Substernal precordial chest pain Status: Acute (20) Unstable angina Status: Acute (21) Upper abdominal pain Status: Acute (22) Wrist pain, left Status: Acute Social History Problems: (1) H/O splenectomy Status: Acute Review of Systems Constitutional: + weakness, + fatigue, No fever, No chills Respiratory: No cough, No shortness of breath, No dyspnea on exertion Cardiac: No chest pain, No orthopnea, No edema Abdomen: No pain, No nausea, No vomiting, No diarrhea Male : No dysuria, No urinary frequency Psychiatric: No depression symptoms, No anhedonism Objective Vital Signs Date Time Temp Pulse Resp B/P (MAP) Pulse Ox O2 Delivery O2 Flow Rate FiO2 02/21/17 14:01 73 21 145/80 (101) 96 Room Air 02/21/17 13:30 36.5 73 16 131/74 100 02/21/17 12:30 36.4 65 16 104/59 97 02/21/17 12:00 36.6 70 17 112/60 95 02/21/17 12:00 Room Air 02/21/17 11:46 70 22 120/68 (85) 96 Room Air 02/21/17 11:41 36.5 70 16 128/76 (93) 99 Room Air 02/21/17 10:01 70 25 137/80 (99) 100 Room Air 02/21/17 08:20 76 22 161/91 (114) 100 Room Air 02/21/17 08:01 36.4 72 18 130/74 (92) 97 Room Air 02/21/17 08:00 Room Air 02/21/17 07:31 73 22 131/76 (94) 96 Room Air 02/21/17 07:01 68 17 100/57 (71) 96 Room Air 02/21/17 06:01 73 17 113/61 (78) 100 Nasal Cannula 2.0 02/21/17 05:31 70 21 94/51 (65) 96 Nasal Cannula 2.0 02/21/17 05:01 70 16 112/58 (76) 95 Nasal Cannula 2.0 02/21/17 04:31 68 18 101/50 (67) 95 Nasal Cannula 2.0 02/21/17 04:01 36.7 72 14 108/56 (73) 96 Nasal Cannula 2.0 02/21/17 04:00 Nasal Cannula 2.0 02/21/17 03:31 69 22 93/51 (65) 93 Nasal Cannula 2.0 02/21/17 03:01 73 15 95/52 (66) 95 Nasal Cannula 2.0 02/21/17 02:31 68 26 91/54 (66) 96 Nasal Cannula 2.0 02/21/17 02:01 68 27 86/47 (60) 98 Nasal Cannula 2.0 02/21/17 01:31 67 28 88/47 (61) 98 Nasal Cannula 2.0 02/21/17 01:01 72 20 100/59 (73) 98 Nasal Cannula 2.0 02/21/17 00:31 70 17 100/53 (69) 97 Nasal Cannula 2.0 02/21/17 00:01 36.6 72 23 94/50 (65) 95 Nasal Cannula 2.0 02/21/17 00:01 Nasal Cannula 2.0 02/20/17 23:31 72 10 102/51 (68) 100 Nasal Cannula 2.0 02/20/17 23:01 75 29 116/62 (80) 98 Nasal Cannula 2.0 02/20/17 22:31 77 16 119/67 (84) 94 Nasal Cannula 2.0 02/20/17 22:01 78 17 135/76 (95) 95 Nasal Cannula 2.0 02/20/17 21:31 79 18 123/75 (91) 93 Nasal Cannula 2.0 02/20/17 21:26 79 21 143/72 (95) 99 Nasal Cannula 2.0 02/20/17 21:21 81 18 125/82 (96) 95 Nasal Cannula 2.0 02/20/17 21:16 79 17 109/57 (74) 98 Nasal Cannula 2.0 02/20/17 21:11 78 18 115/64 (81) 95 Nasal Cannula 2.0 02/20/17 21:06 76 16 107/61 (76) 93 Nasal Cannula 2.0 02/20/17 21:01 76 15 111/63 (79) 96 Nasal Cannula 2.0 02/20/17 20:56 78 21 114/67 (83) 98 Nasal Cannula 2.0 02/20/17 20:51 78 16 107/62 (77) 98 Nasal Cannula 2.0 02/20/17 20:46 78 12 110/59 (76) 94 Nasal Cannula 2.0 02/20/17 20:41 79 16 104/59 (74) 95 Nasal Cannula 2.0 02/20/17 20:36 78 19 103/57 (72) 94 Nasal Cannula 2.0 02/20/17 20:31 78 29 109/61 (77) 94 Nasal Cannula 2.0 02/20/17 20:27 81 18 90/59 (69) 92 Nasal Cannula 2.0 02/20/17 20:21 78 19 129/77 (94) 97 Nasal Cannula 2.0 02/20/17 20:01 80 15 120/67 (84) 95 Nasal Cannula 2.0 02/20/17 20:00 Nasal Cannula 2.0 02/20/17 19:35 36.6 85 24 136/80 (98) 97 Nasal Cannula 2.0 02/20/17 17:01 78 18 129/71 (90) 96 Nasal Cannula 2.0 02/20/17 16:01 36.6 76 15 120/62 (81) 95 Nasal Cannula 2.0 02/20/17 16:00 Nasal Cannula 2.0 02/20/17 15:46 78 20 119/64 (82) 96 Nasal Cannula 2.0 02/20/17 15:01 79 17 132/67 (88) 99 Nasal Cannula 2.0 Physical Exam General Appearance: WD/WN, + mild distress Neck: supple, no JVD Respiratory/Chest: chest non-tender, lungs clear, normal breath sounds Cardiovascular: regular rate, rhythm, + systolic murmur Abdomen: normal bowel sounds, non tender, soft Extremities: no pedal edema, no calf tenderness Neurologic/Psychiatric: alert, oriented x 3 Laboratory Results Last 24 Hours Test 02/21/17 00:12 02/21/17 05:34 02/21/17 05:35 Bedside Glucose 154 mg/dl Activated Partial Thromboplast Time 28.5 SECONDS Partial Thromboplastin Ratio 1.1 White Blood Count 15.35 K/uL Red Blood Count 2.46 M/uL Hemoglobin 7.9 g/dL Hematocrit 23.6 % Mean Corpuscular Volume 95.9 fL Mean Corpuscular Hemoglobin 32.1 pg Mean Corpuscular Hemoglobin Concent 33.5 g/dl RDW Standard Deviation 61.9 fL RDW Coefficient of Variation 17.7 % Platelet Count 320 K/uL Mean Platelet Volume 10.1 fL Nucleated RBC Absolute Count (auto) 0.02 K/uL Nucleated Red Blood Cells % 0.1 % Assessment and Plan 51M with ESRD on HD, presents with chest pain and elevated troponin with some ST changes, known CAD with SVG and HUMPHREYS chest pain comcern for ACS, Elevated troponin with EKG changes and history of Coronary artery disease status post coronary artery bypass graft. aspirin, atorvastatin and metoprolol. , cautiously have on heparin given recent epistaxis with minor recurrence 02/20- Acute blood loss anemia with 3 grams of hemoglobin drop secondary to nasal bleed that has been recurrent within the last 2 months, transfusion here 2 u prbc given concern for ACS End-stage renal disease on dialysis. likely also anemia of chronic disease Adrenal suppression with history of chronic prednisone, stress dose steroids, initially low blood pressure on admission.
--- NOTE | 2017-02-21 16:49 | Critical Care Progress Note ---
Critical Care Progress Note Date of Service Feb 21, 2017. Attending Dr. Lanza Subjective Epistaxis yesterday on heparin drip. It resolved with local pressure. Heparin drip stopped. Still having occasional chest pain, resolving with nitrates and narcotics Objective General Appearance: well-appearing, WD/WN, no apparent distress Head: normocephalic, atraumatic Eyes: PERRLA Neck: no tenderness, trachea midline, supple Respiratory: breath sounds normal, clear to auscultation, no respiratory distress Cardiovasular: regular rate/rhythm, normal S1S2, systolic murmur (best heard in aortic point) Upper Extremities: no edema, other (left arm AV fistula) Lower Extremities: no edema Neuro: alert, oriented x 3, normal motor exam, normal sensation Assessment & Plan 51 year old male with h/o CAD, ESRD on HD admitted with NSTEMI and ongoing chest pain Problems: NSTEMI CAD Anemia Ischemic cardiomyopathy ESRD on HD Plan: Continue Imdur. If needed, resume NTG drip Off heparin drip. Continue ASA and Plavix. Continue on metoprolol Considering repeat cath, but it would be very high risk To be transfused again today For HD tomorrow Stress dose steroids, he is on chronic Prednisone 5 mg Critical care time spent 25 minutes May be transferred to telemetry floor Consults & Procedures Consultants: Dr Molina - Cardiology Dr Ennis - nephrology Procedures: None Data Medications: Current Inpatient Medications Medications (Trade) Dose Ordered Sig/Amanda Route Start Time Stop Time Status Last Admin Dose Admin Nitroglycerin (Nitrostat Tab) 0.4 mg UD PRN SL 02/19/17 12:15 03/21/17 12:14 02/21/17 11:45 0.4 MG Hydromorphone HCl (Dilaudid Inj) 0.5 mg Q4H PRN IV 02/19/17 12:30 03/05/17 12:29 02/21/17 14:29 0.5 MG Atorvastatin Calcium (Lipitor Tab) 20 mg HS PO 02/19/17 21:00 03/21/17 20:59 02/20/17 19:34 20 MG Clopidogrel Bisulfate (plAVix TAB) 75 mg DAILY PO 02/20/17 09:00 03/22/17 08:59 02/21/17 07:27 75 MG Isosorbide Mononitrate (Imdur Ext Rel Tab) 60 mg BID PO 02/19/17 21:00 03/21/17 20:59 02/21/17 07:26 60 MG Oxycodone HCl (Roxicodone Immediate Rel Tab) 5 mg Q4H PRN PO 02/19/17 12:30 03/05/17 12:29 02/20/17 20:19 5 MG Pantoprazole Sodium (Protonix Tab) 40 mg DAILY PO 02/20/17 09:00 03/22/17 08:59 02/21/17 07:27 40 MG Vitamin B Complex/ Vit C/Folic Acid (Nephrocaps) 1 cap DAILY PO 02/20/17 09:00 03/22/17 08:59 02/21/17 07:27 1 CAP Miscellaneous Information (Order Awaiting Action) 1 ea QS N/A 02/19/17 16:00 03/21/17 15:59 Sevelamer HCl (Renagel Tab) 1,600 mg TIDM PO 02/19/17 16:30 03/21/17 16:29 02/21/17 11:28 1,600 MG Aspirin (Ecotrin Tab) 81 mg QAM PO 02/20/17 09:00 03/22/17 08:59 02/21/17 07:27 81 MG Ondansetron HCl (Zofran Inj) 4 mg Q8 PRN IV 02/19/17 14:00 03/21/17 13:59 02/20/17 07:41 4 MG Zolpidem Tartrate (Ambien Tab) 5 mg HS PRN PO 02/19/17 22:00 03/21/17 21:59 02/20/17 22:02 5 MG Nitroglycerin (Nitroglycerin 2% Oint) 1 inch Q6H EXT 02/20/17 00:00 03/22/17 00:00 02/21/17 11:28 1 INCH Fentanyl Citrate (Fentanyl Inj) 25 mcg Q1HWA PRN IV 02/20/17 09:00 03/06/17 08:59 02/21/17 11:46 25 MCG Metoprolol Succinate (Toprol Xl Tab) 50 mg BID PO 02/20/17 21:00 03/22/17 20:59 02/21/17 07:27 50 MG Heparin Sodium/ Dextrose 500 ml @ 23 mls/hr [id number] PRN IV 02/20/17 11:45 03/22/17 11:44 Future Hold 02/20/17 12:22 23 MLS/HR I & O: 24-Hour Column 02/22/17 08:00 Intake Total 430 ml Balance 430 ml Vital Signs: Date Time Temp Pulse Resp B/P (MAP) Pulse Ox O2 Delivery O2 Flow Rate FiO2 02/21/17 16:00 Room Air 02/21/17 15:52 36.5 73 21 96 02/21/17 14:01 73 21 145/80 (101) 96 Room Air 02/21/17 13:30 36.5 73 16 131/74 100 02/21/17 12:30 36.4 65 16 104/59 97 02/21/17 12:00 36.6 70 17 112/60 95 02/21/17 12:00 Room Air 02/21/17 11:46 70 22 120/68 (85) 96 Room Air 02/21/17 11:41 36.5 70 16 128/76 (93) 99 Room Air 02/21/17 10:01 70 25 137/80 (99) 100 Room Air 02/21/17 08:20 76 22 161/91 (114) 100 Room Air 02/21/17 08:01 36.4 72 18 130/74 (92) 97 Room Air 02/21/17 08:00 Room Air 02/21/17 07:31 73 22 131/76 (94) 96 Room Air 02/21/17 07:01 68 17 100/57 (71) 96 Room Air 02/21/17 06:01 73 17 113/61 (78) 100 Nasal Cannula 2.0 02/21/17 05:31 70 21 94/51 (65) 96 Nasal Cannula 2.0 02/21/17 05:01 70 16 112/58 (76) 95 Nasal Cannula 2.0 02/21/17 04:31 68 18 101/50 (67) 95 Nasal Cannula 2.0 02/21/17 04:01 36.7 72 14 108/56 (73) 96 Nasal Cannula 2.0 02/21/17 04:00 Nasal Cannula 2.0 02/21/17 03:31 69 22 93/51 (65) 93 Nasal Cannula 2.0 02/21/17 03:01 73 15 95/52 (66) 95 Nasal Cannula 2.0 02/21/17 02:31 68 26 91/54 (66) 96 Nasal Cannula 2.0 02/21/17 02:01 68 27 86/47 (60) 98 Nasal Cannula 2.0 02/21/17 01:31 67 28 88/47 (61) 98 Nasal Cannula 2.0 02/21/17 01:01 72 20 100/59 (73) 98 Nasal Cannula 2.0 02/21/17 00:31 70 17 100/53 (69) 97 Nasal Cannula 2.0 02/21/17 00:01 36.6 72 23 94/50 (65) 95 Nasal Cannula 2.0 02/21/17 00:01 Nasal Cannula 2.0 02/20/17 23:31 72 10 102/51 (68) 100 Nasal Cannula 2.0 02/20/17 23:01 75 29 116/62 (80) 98 Nasal Cannula 2.0 02/20/17 22:31 77 16 119/67 (84) 94 Nasal Cannula 2.0 02/20/17 22:01 78 17 135/76 (95) 95 Nasal Cannula 2.0 02/20/17 21:31 79 18 123/75 (91) 93 Nasal Cannula 2.0 02/20/17 21:26 79 21 143/72 (95) 99 Nasal Cannula 2.0 02/20/17 21:21 81 18 125/82 (96) 95 Nasal Cannula 2.0 02/20/17 21:16 79 17 109/57 (74) 98 Nasal Cannula 2.0 02/20/17 21:11 78 18 115/64 (81) 95 Nasal Cannula 2.0 02/20/17 21:06 76 16 107/61 (76) 93 Nasal Cannula 2.0 02/20/17 21:01 76 15 111/63 (79) 96 Nasal Cannula 2.0 02/20/17 20:56 78 21 114/67 (83) 98 Nasal Cannula 2.0 02/20/17 20:51 78 16 107/62 (77) 98 Nasal Cannula 2.0 02/20/17 20:46 78 12 110/59 (76) 94 Nasal Cannula 2.0 02/20/17 20:41 79 16 104/59 (74) 95 Nasal Cannula 2.0 02/20/17 20:36 78 19 103/57 (72) 94 Nasal Cannula 2.0 02/20/17 20:31 78 29 109/61 (77) 94 Nasal Cannula 2.0 02/20/17 20:27 81 18 90/59 (69) 92 Nasal Cannula 2.0 02/20/17 20:21 78 19 129/77 (94) 97 Nasal Cannula 2.0 02/20/17 20:01 80 15 120/67 (84) 95 Nasal Cannula 2.0 02/20/17 20:00 Nasal Cannula 2.0 02/20/17 19:35 36.6 85 24 136/80 (98) 97 Nasal Cannula 2.0 02/20/17 17:01 78 18 129/71 (90) 96 Nasal Cannula 2.0 Laboratory Results: Last 24 Hours Test 02/21/17 00:12 02/21/17 05:34 02/21/17 05:35 Bedside Glucose 154 mg/dl Activated Partial Thromboplast Time 28.5 SECONDS Partial Thromboplastin Ratio 1.1 White Blood Count 15.35 K/uL Red Blood Count 2.46 M/uL Hemoglobin 7.9 g/dL Hematocrit 23.6 % Mean Corpuscular Volume 95.9 fL Mean Corpuscular Hemoglobin 32.1 pg Mean Corpuscular Hemoglobin Concent 33.5 g/dl RDW Standard Deviation 61.9 fL RDW Coefficient of Variation 17.7 % Platelet Count 320 K/uL Mean Platelet Volume 10.1 fL Nucleated RBC Absolute Count (auto) 0.02 K/uL Nucleated Red Blood Cells % 0.1 %
[2017-02-21] MEDS: ATORVASTATIN 20 MG TAB PO SCH (20:00)
[2017-02-21] MEDS: OXYCODONE HCL IR 5 MG TAB (IMMEDIATE RELEASE) PO PRN (20:07)
[2017-02-21] MEDS: ZOLPIDEM TARTRATE 5 MG TAB PO PRN (21:31)
[2017-02-22] VITALS (19 sets, daily range): BP systolic 91–144; BP diastolic 54–81; PULSE 59–79; TEMP 36.3–37; O2SAT 94–100
[2017-02-22] MEDS: NITROGLYCERIN OINT 2% 1GM PACKET EXT SCH ×5 (00:06→23:32)
[2017-02-22] MEDS: HYDROmorphone INJ 0.5 MG/0.5 ML SYR IV PRN ×5 (04:06→19:56)
[2017-02-22] MEDS: NITROGLYCERIN 0.4 MG SL PER TAB CHARGE SL PRN (05:18)
[2017-02-22 06:12] LABS: HEMATOCRIT 28.3 % (42-52); MEAN CELL VOLUME 98.3 fL (80-100); MEAN CORPUSCULAR HGB CONC 34.6 g/dl (32-36); MEAN PLATELET VOLUME 10.3 fL (7.4-10.4); PLATELET COUNT 324 K/uL (130-400); RED BLOOD COUNT 2.88 M/uL (4.7-6.1); WHITE BLOOD COUNT 15.73 K/uL (4.8-10.8)
[2017-02-22] MEDS ORDERED: PERFLUTREN LIPID MICROSPHERE (DEFINITY) IV ONE (06:41)
[2017-02-22 06:59] LABS: BUN/CREATININE RATIO 12.4 (10-20); CALCIUM 8.5 mg/dl (8.5-10.1); CREATININE 9.3 mg/dl (0.60-1.40); POTASSIUM 5.2 mmol/L (3.5-5.1)
[2017-02-22] MEDS: ASPIRIN 81 MG ECTAB PO SCH (07:23)
[2017-02-22] MEDS: SEVELAMER HYDROCH 800 MG TAB PO SCH ×3 (07:24→16:45)
[2017-02-22] MEDS: CLOPIDOGREL BISULFATE 75 MG TAB PO SCH (07:25)
[2017-02-22] MEDS: ISOSORBIDE MONONITRATE 60 MG TABCR PO SCH ×2 (07:25→19:52)
[2017-02-22] MEDS: NEPHROCAPS PO SCH (07:25)
[2017-02-22] MEDS: PANTOprazole SOD 40 MG TAB PO SCH (07:26)
[2017-02-22] MEDS: METOPROLOL SUCC 50MG EXT REL TAB PO SCH ×2 (07:26→19:51)
--- NOTE | 2017-02-22 09:34 | Clinical Documentation Query ---
CLINICAL DOCUMENTATION QUERY Dr. SARABIA, The diagnosis of NSTEMI was initially documented in the clinical record. It has since been documented as "chest pain concerning for ACS". Despite the intentions of many physicians, the documentation of "Acute Coronary Syndrome" will not capture the diagnosis of an Acute Myocardial Infarction. In coding language, "ACS" is considered an acute but unspecified form of ischemic heart disease and likely does not capture the SOI or ROM intended by the physician. In your clinical opinion is this patient being managed for: ( x ) Non-ST elevation (NSTEMI) myocardial infarction ( ) Other explanation of clinical findings (Please Explain) ( ) Unable to determine (Please Define) ( ) Need to Discuss ( ) Not Agree IF IN AGREEMENT, YOU MUST DOCUMENT ABOVE DIAGNOSTIC STATEMENT IN DAILY PROGRESS NOTES AND DISCHARGE SUMMARY. This document is not part of the patient's record. Thank You, Vandana Espinal RN [phone]
--- NOTE | 2017-02-22 10:41 | Progress Note ---
Subjective Date of Service: Feb 22, 2017. Subjective Pt evaluation today including: conversation w/ patient, physical exam, chart review, lab review, review of studies, conversation w/ instructional systems design consultant, review of inpatient medication list Doing bedside HD, pleasant, no complaining, per nurse, was having chest pain this morning, mid chest, lasting 30 minutes, help with IV Dilaudid, for now has no chest pain Problem List Medical Problems: (1) Acute coronary syndrome Status: Acute (2) Atrial flutter with rapid ventricular response Status: Acute (3) Chest pain Status: Acute (4) Chest pain Status: Acute (5) Chest pain Status: Acute (6) Elevated troponin Status: Acute (7) Elevated troponin Status: Acute (8) End stage renal disease Status: Acute (9) Epistaxis Status: Acute (10) ESRD (end stage renal disease) Status: Acute (11) GI bleed Status: Acute (12) Hyperbilirubinemia Status: Acute (13) Lower GI bleeding Status: Acute (14) Peptic ulcer disease Status: Acute (15) Precordial chest pain Status: Acute (16) RUQ abdominal pain Status: Acute (17) Sepsis Status: Acute (18) Sepsis Status: Acute (19) Substernal precordial chest pain Status: Acute (20) Unstable angina Status: Acute (21) Upper abdominal pain Status: Acute (22) Wrist pain, left Status: Acute Social History Problems: (1) H/O splenectomy Status: Acute Review of Systems Constitutional: No fever, No chills, No sweats, No weight loss, No weakness, No fatigue, No problem reported Eyes: No worsening of vision, No eye pain, No redness, No discharge, No diplopia ENT: No hearing loss, No unusual epistaxis, No nasal symptoms, No sore throat, No tinnitus, No dental problems, No trouble swallowing Respiratory: No cough, No sputum, No wheezing, No shortness of breath, No dyspnea on exertion, No dyspnea at rest, No hemoptysis Cardiac: No chest pain, No orthopnea, No PND, No edema, No claudication, No palpitations Abdomen: + constipation, No pain, No nausea, No vomiting, No diarrhea Musculoskeletal: No joint pain, No muscle pain, No swelling, No calf pain Male : No dysuria, No urinary frequency, No incontinence, No nocturia more than once/night, No slowing stream, No hematuria Neurologic: No memory loss, No paralysis, No weakness, No numbness/tingling, No vertigo, No balance problems Psychiatric: No depression symptoms, No anhedonism, No anxiety, No insomnia, No substance abuse Heme: No abnormal bleeding/bruising, No clotting problems, No swollen lymph nodes, No night sweats Endo: No fatigue, No excessive thirst, No excessive urination Skin: No rash, No itch, No new/changing skin lesions, No color change, No bleeding Objective Vital Signs Date Time Temp Pulse Resp B/P (MAP) Pulse Ox O2 Delivery O2 Flow Rate FiO2 02/22/17 10:15 70 122/70 02/22/17 09:48 36.5 70 144/78 (100) 02/22/17 09:45 69 134/73 02/22/17 09:27 71 141/75 02/22/17 08:00 Room Air 02/22/17 07:19 36.6 67 19 131/77 (95) 100 Room Air 02/22/17 06:45 134/81 (98) 02/22/17 04:00 Room Air 02/22/17 03:55 36.5 65 16 105/63 (77) 97 Room Air 02/21/17 23:59 Room Air 02/21/17 23:35 36.6 69 18 113/65 (81) 99 Room Air 02/21/17 21:36 75 144/72 (96) 02/21/17 20:00 Room Air 02/21/17 19:02 36.5 70 18 155/89 (111) 99 Room Air 02/21/17 16:29 36.6 74 20 124/86 (99) 97 Room Air 02/21/17 16:00 Room Air 02/21/17 15:52 36.5 73 21 96 02/21/17 14:01 73 21 145/80 (101) 96 Room Air 02/21/17 13:30 36.5 73 16 131/74 100 02/21/17 12:30 36.4 65 16 104/59 97 02/21/17 12:00 36.6 70 17 112/60 95 02/21/17 12:00 Room Air 02/21/17 11:46 70 22 120/68 (85) 96 Room Air 02/21/17 11:41 36.5 70 16 128/76 (93) 99 Room Air Physical Exam General Appearance: WD/WN, no apparent distress, + pertinent finding (pleasant and conversational) Eyes: normal inspection, PERRL, EOMI, sclerae normal ENT: normal ENT inspection, hearing grossly normal, pharynx normal Neck: supple, no adenopathy, thyroid normal, no JVD, no carotid bruits, trachea midline Respiratory/Chest: chest non-tender, lungs clear, normal breath sounds, no respiratory distress, no accessory muscle use Cardiovascular: regular rate, rhythm, no edema, no gallop, no JVD, no murmur Abdomen: normal bowel sounds, non tender, soft, no organomegaly, no pulsatile mass Extremities: normal range of motion, non-tender, normal inspection, no pedal edema, no calf tenderness, normal capillary refill, pelvis stable Neurologic/Psychiatric: consumer insight analyst II-XII nml as tested, no motor/sensory deficits, alert, normal mood/affect, oriented x 3 Skin: normal color, warm/dry, no rash Lymphatic: no adenopathy Laboratory Results Last 24 Hours Test 02/22/17 05:40 White Blood Count 15.73 K/uL Red Blood Count 2.88 M/uL Hemoglobin 9.8 g/dL Hematocrit 28.3 % Mean Corpuscular Volume 98.3 fL Mean Corpuscular Hemoglobin 34.0 pg Mean Corpuscular Hemoglobin Concent 34.6 g/dl RDW Standard Deviation 60.6 fL RDW Coefficient of Variation 17.3 % Platelet Count 324 K/uL Mean Platelet Volume 10.3 fL Sodium Level 140 mmol/L Potassium Level 5.2 mmol/L Chloride Level 102 mmol/L Carbon Dioxide Level 25 mmol/L Anion Gap 13.0 mmol/L Blood Urea Nitrogen 115 mg/dl Creatinine 9.30 mg/dl Est Creatinine Clear Calc Drug Dose 8.5 ml/min Estimated GFR () 6.8 Estimated GFR (Non- 5.9 BUN/Creatinine Ratio 12.4 Random Glucose 92 mg/dl Calcium Level 8.5 mg/dl Assessment and Plan 51M with ESRD on HD, presents with chest pain and elevated troponin with some ST changes, known CAD with SVG and HUMPHREYS Non-ST elevation (NSTEMI) myocardial infarction with chest pain and Elevated troponin with EKG changes history of Coronary artery disease status post coronary artery bypass graft. cont aspirin, atorvastatin and metoprolol. was on cautiously heparin given recent epistaxis with minor recurrence 02/20-2016, which was discontinued per cardiology recommendation Cardiology plan left heart cath, we'll continue to follow up the recommendation from heel gouger Continue beta rubin, stating, aspirin, Plavix, and nitroglycerin Acute blood loss anemia with 3 grams of hemoglobin drop secondary to nasal bleed that has been recurrent within the last 2 months, Today is 9.8, from 7.9, after transfused 2 u prbc given concern for ACS End-stage renal disease on dialysis. likely also anemia of chronic disease Adrenal suppression with history of chronic prednisone, stress dose steroids, initially low blood pressure on admission. Constipation: Start Colace DVT and GI prophylaxis is covered, renal social worker for discharge plan Continued [facility] stay due to: home environment unsafe for pt Discharge planning: home
[2017-02-22] MEDS ORDERED: DOCUSATE SODIUM 100 MG CAP PO ONE (10:45)
--- NOTE | 2017-02-22 14:22 | ECHOCARDIOGRAM REPORT ---
*NOTICE TO RECEIVING [employer] AGENCY This information is strictly Confidential and protected under [place] law. [place] law prohibits you from making any further disclosure of this information unless further disclosure is expressly permitted by the written consent of the person to whom it pertains or is authorized by law. A general authorization for the release of medical or other information is not sufficient for this purpose. Hospital accepts no responsibility if the information is made available to any other person, INCLUDING THE PATIENT. Interpretation Summary * Name: FOSTER RENE Study Date: 02/22/2017 06:17 AM BP: 105/63 mmHg * Patient Location: C.2T\S\E216\S\1 HR: 65 * : 1965 (M/d/yyyy) Gender: Male Height: 66 in * Age: 51 yrs Ethnicity: CA Weight: 137 lb * Ordering Physician: James Molina MD, [facility] * Performed By: Risa Pike * * Reason For Study: AMI * BSA: 1.7 m2 Procedure Details * A complete two-dimensional transthoracic echocardiogram was performed (2D, M-mode, Doppler and color flow Doppler). * A contrast injection of Definity was performed to improve assessment of LV function. * Contrast was injected into an intravenous site in the right arm. * One vial of Definity ultrasound contrast was diluted in normal saline to a total volume of 10 ml. A total of '2' ml of solution was administered during imaging. * Lot # [id number] of Definity utilized for procedure. * Expiration date 03/12. Left Ventricle * The left ventricle is normal in size. * There is mild concentric left ventricular hypertrophy. * Ejection Fraction = 50-55%. * Diastolic dysfunction, Grade II (pseudonormalization pattern). * Left ventricular systolic function is low normal. * Septal, apical, anteroseptal , inferoseptal, inferoapical, aand posterior hypokinesis. Right Ventricle * The right ventricle is mildly dilated. * The right ventricular systolic function is mildly reduced. * The right ventricular systolic function is reduced as assessed by tricuspid annular plane systolic excursion (TAPSE) (TAPSE <1.6 cm). Atria * The left atrium is moderately dilated. * Right atrial size is normal. * No ASD detected; PFO is not assessed. Mitral Valve * There is moderate to severe mitral annular calcification. * Calcified mitral apparatus. * There is no mitral valve stenosis. * There is moderate to severe mitral regurgitation. Tricuspid Valve * The tricuspid valve is normal. * There is no tricuspid stenosis. * There is mild tricuspid regurgitation. * Right ventricular systolic pressure is elevated at 30-40mmHg. Aortic Valve * The aortic valve is trileaflet. * The valve is calcified and has decreased opening on 2 D imaging. * Aortic valve area was calculated at 1.2 cm\S\2 using the continuity equation. * Dimensionless AV index 0.31. * No aortic regurgitation is present. Pulmonic Valve * The pulmonic valve is not well seen, but is grossly normal. * There is no pulmonic valvular stenosis. * Trace pulmonic valvular regurgitation. Great Vessels * The aortic root is normal size. * Moderate atherosclerotic plaque(s) in the ascending aorta. * Mildly dilated ascending aorta. Pericardium/Pleural * There is no pericardial effusion. Great Vessels * Normal inferior vena cava diameter and respiratory variation suggests normal central venous pressure. MMode 2D Measurements and Calculations Ao root diam 3.5 cm Ao root area 9.4 cm\S\2 ACS 1.3 cm LA dimension 4.7 cm asc Aorta Diam 4.1 cm LA/Ao 1.4 LVOT diam 2.2 cm LVOT area 3.8 cm\S\2 LVAd ap4 39.8 cm\S\2 LVLd ap4 9.0 cm EDV(MOD-sp4) 141.0 ml LVAs ap4 24.2 cm\S\2 LVLs ap4 7.8 cm ESV(MOD-sp4) 59.8 ml EF(MOD-sp4) 57.6 % LVAd ap2 42.9 cm\S\2 LVLd ap2 9.3 cm EDV(MOD-sp2) 164.0 ml LVAs ap2 25.6 cm\S\2 LVLs ap2 7.9 cm ESV(MOD-sp2) 70.9 ml EF(MOD-sp2) 56.8 % CO(MOD-sp4) 5.4 l/min CI(MOD-sp4) 3.2 l/min/m\S\2 SV(MOD-sp4) 81.2 ml SI(MOD-sp4) 47.7 ml/m\S\2 CO(MOD-sp2) 6.2 l/min CI(MOD-sp2) 3.7 l/min/m\S\2 SV(MOD-sp2) 93.1 ml SI(MOD-sp2) 54.7 ml/m\S\2 Doppler Measurements and Calculations MV E max parker 148.4 cm/sec MV A max parker 127.6 cm/sec MV E/A 1.2 MV dec time 0.28 sec Ao V2 max 314.5 cm/sec Ao max PG 39.6 mmHg Ao max PG (full) 35.8 mmHg Ao V2 mean 187.3 cm/sec Ao mean PG 17.1 mmHg Ao V2 VTI 73.2 cm JAN(V,A) 1.2 cm\S\2 JAN(V,D) 1.2 cm\S\2 LV V1 max PG 3.8 mmHg LV V1 max 97.5 cm/sec MR max parker 497.7 cm/sec MR max PG 99.1 mmHg SV(Ao) 689.2 ml SI(Ao) 404.7 ml/m\S\2 PA V2 max 56.8 cm/sec PA max PG 1.3 mmHg TR max parker 281.0 cm/sec
--- NOTE | 2017-02-22 14:25 | ECHOCARDIOGRAM REPORT ---
*NOTICE TO RECEIVING [employer] PARTY AGENCY This information is strictly Confidential and protected under [place] law. [place] law prohibits you from making any further disclosure of this information unless further disclosure is expressly permitted by the written consent of the person to whom it pertains or is authorized by law. A general authorization for the release of medical or other information is not sufficient for this purpose. Hospital accepts no responsibility if the information is made available to any other person, INCLUDING THE PATIENT. Interpretation Summary * Name: FOSTER RENE Study Date: 02/22/2017 06:17 AM BP: 105/63 mmHg * Patient Location: C.2T\S\E216\S\1 HR: 65 * : 1965 (M/d/yyyy) Gender: Male Height: 66 in * Age: 51 yrs Ethnicity: [place] Weight: 137 lb * Ordering Physician: James Molina MD, [facility] * Performed By: Risa Pike * * Reason For Study: AMI * BSA: 1.7 m2 * Low normal overall left ventricular systolic function. * Mild hypokinesis of the septal,anteroseptal,anteroapical,,inferoapical ,and posterior segments of the left ventricle. * Mild concentric left ventricular hypetrophy. * Class 2 LV diastolic dysfunction. * Moderate left atrial dilatation. * Mild ascending aortic dilatation. * Moderate aortic stenosis. * Moderate - severe mitral regurgitation. * Mild tricuspid regurgitation. * Mildly elevated RV systolic pressure. * Trace pulmonic regurgitation. Procedure Details * A complete two-dimensional transthoracic echocardiogram was performed (2D, M-mode, Doppler and color flow Doppler). * A contrast injection of Definity was performed to improve assessment of LV function. * Contrast was injected into an intravenous site in the right arm. * One vial of Definity ultrasound contrast was diluted in normal saline to a total volume of 10 ml. A total of '2' ml of solution was administered during imaging. * Lot # [id number] of Definity utilized for procedure. * Expiration date 03/12. Left Ventricle * The left ventricle is normal in size. * There is mild concentric left ventricular hypertrophy. * Ejection Fraction = 50-55%. * Diastolic dysfunction, Grade II (pseudonormalization pattern). * Left ventricular systolic function is low normal. * Septal, apical, anteroseptal , inferoseptal, inferoapical, aand posterior hypokinesis. Right Ventricle * The right ventricle is mildly dilated. * The right ventricular systolic function is mildly reduced. * The right ventricular systolic function is reduced as assessed by tricuspid annular plane systolic excursion (TAPSE) (TAPSE <1.6 cm). Atria * The left atrium is moderately dilated. * Right atrial size is normal. * No ASD detected; PFO is not assessed. Mitral Valve * There is moderate to severe mitral annular calcification. * Calcified mitral apparatus. * There is no mitral valve stenosis. * There is moderate to severe mitral regurgitation. Tricuspid Valve * The tricuspid valve is normal. * There is no tricuspid stenosis. * There is mild tricuspid regurgitation. * Right ventricular systolic pressure is elevated at 30-40mmHg. Aortic Valve * The aortic valve is trileaflet. * The valve is calcified and has decreased opening on 2 D imaging. * Aortic valve area was calculated at 1.2 cm\S\2 using the continuity equation. * Dimensionless AV index 0.31. * No aortic regurgitation is present. Pulmonic Valve * The pulmonic valve is not well seen, but is grossly normal. * There is no pulmonic valvular stenosis. * Trace pulmonic valvular regurgitation. Great Vessels * The aortic root is normal size. * Moderate atherosclerotic plaque(s) in the ascending aorta. * Mildly dilated ascending aorta. Pericardium/Pleural * There is no pericardial effusion. Great Vessels * Normal inferior vena cava diameter and respiratory variation suggests normal central venous pressure. MMode 2D Measurements and Calculations Ao root diam 3.5 cm Ao root area 9.4 cm\S\2 ACS 1.3 cm LA dimension 4.7 cm asc Aorta Diam 4.1 cm LA/Ao 1.4 LVOT diam 2.2 cm LVOT area 3.8 cm\S\2 LVAd ap4 39.8 cm\S\2 LVLd ap4 9.0 cm EDV(MOD-sp4) 141.0 ml LVAs ap4 24.2 cm\S\2 LVLs ap4 7.8 cm ESV(MOD-sp4) 59.8 ml EF(MOD-sp4) 57.6 % LVAd ap2 42.9 cm\S\2 LVLd ap2 9.3 cm EDV(MOD-sp2) 164.0 ml LVAs ap2 25.6 cm\S\2 LVLs ap2 7.9 cm ESV(MOD-sp2) 70.9 ml EF(MOD-sp2) 56.8 % CO(MOD-sp4) 5.4 l/min CI(MOD-sp4) 3.2 l/min/m\S\2 SV(MOD-sp4) 81.2 ml SI(MOD-sp4) 47.7 ml/m\S\2 CO(MOD-sp2) 6.2 l/min CI(MOD-sp2) 3.7 l/min/m\S\2 SV(MOD-sp2) 93.1 ml SI(MOD-sp2) 54.7 ml/m\S\2 Doppler Measurements and Calculations MV E max parker 148.4 cm/sec MV A max parker 127.6 cm/sec MV E/A 1.2 MV dec time 0.28 sec Ao V2 max 314.5 cm/sec Ao max PG 39.6 mmHg Ao max PG (full) 35.8 mmHg Ao V2 mean 187.3 cm/sec Ao mean PG 17.1 mmHg Ao V2 VTI 73.2 cm JAN(V,A) 1.2 cm\S\2 JAN(V,D) 1.2 cm\S\2 LV V1 max PG 3.8 mmHg LV V1 max 97.5 cm/sec MR max parker 497.7 cm/sec MR max PG 99.1 mmHg SV(Ao) 689.2 ml SI(Ao) 404.7 ml/m\S\2 PA V2 max 56.8 cm/sec PA max PG 1.3 mmHg TR max parker 281.0 cm/sec
[2017-02-22] MEDS: ONDANSETRON INJ 2 MG/ML 2 ML VIAL IV PRN (14:29)
--- NOTE | 2017-02-22 14:32 | CARDIOLOGY PROGRESS NOTE ---
DATE: 02/22/2017 HISTORY OF PRESENT ILLNESS: Mr. Segura is a very pleasant 51-year-old white male with a history of longstanding renal disease, end-stage renal disease on hemodialysis, CAD s/p CABG x 2 vessels, prior intracoronary stents, anemia, hypertension, dyslipidemia, peripheral vascular disease with extensive calcifications of the abdominal aorta and iliacs, history of GI bleeding with Dieulafoy aneurysm in 2006 that required clipping, questionable history of cirrhosis, and a history of prior NSTEMI in October 2016 that was admitted acutely to [facility] on 02/19/2017 complaining of acute onset chest pain, which radiated into his neck, and acute T-wave inversion with the ST depressions laterally -- which was a new change from his prior EKGs. The patient was also noted to be acutely anemic. He was evaluated by cardiology early on, who recommended transfusion and ongoing medical management. Subsequently, his troponin I levels have become elevated and he has had persistent intermittent chest pain. The patient did have more chest pain earlier today. He has been treated with IV Dilaudid and that pain has been relieved. He denies any radiation of this pain. Denies any associated nausea, vomiting, diaphoresis, or dyspnea. The patient is currently receiving dialysis and complained of a pain behind his left eye. Dilaudid has helped as has a warm compress on his neck. It did not, however, make the headache go away. He denies any neurologic symptoms. MEDICATIONS: 1. Colace 100 mg b.i.d. 2. Toprol-XL 50 mg b.i.d. 3. Plavix 75 mg daily. 4. Protonix 40 mg daily. 5. Nephrocaps 1 capsule daily. 6. Aspirin 81 mg daily. 7. Fentanyl 25 mcg IV q. 1 hour p.r.n. for pain. 8. Nitroglycerin ointment 2% 1 inch on chest wall q. 6 hours. 9. Ambien 5 mg at bedtime p.r.n. for sleep. 10. Lipitor 20 mg at bedtime. 11. Imdur 60 mg b.i.d. 12. Renagel 1600 mg t.i.d. 13. Zofran p.r.n. 14. Hydromorphone 0.5 mg IV q. 4 hours p.r.n. for pain. 15. OxyIR 5 mg every 4 hours as needed for severe pain. 16. Sublingual nitroglycerin 0.4 mg sublingually p.r.n. for chest pain. ALLERGIES: 1. DIAZOXIDE. 2. NSAIDS. 3. POLLEN. PHYSICAL EXAMINATION: VITAL SIGNS: Temperature is 36.3 degree Celsius, pulse 65 and regular, respiratory rate is 19 and unlabored, blood pressure is 126/65 and SpO2 is 100% on room air. GENERAL: The patient appears chronically ill, but in no acute distress. HEENT: Head is atraumatic and normocephalic. EOMs intact. Sclerae are anicteric. Face is symmetric. No perioral cyanosis. NECK: Without thyromegaly, adenopathy, or JVD. Carotid upstrokes are +2 bilaterally without obvious bruits. Jugular venous pressure does not appear to be elevated. CHEST AND LUNGS: With clear to auscultation throughout all lung lobo. No wheezes, rales or rhonchi. CARDIOVASCULAR: S1 and S2 are regular at a rate of approximately 60 beats per minute with a grade 2/6 basal systolic murmur heard best over the right second intercostal space, grade 3/6 apical holosystolic murmur audible at the left sternal border, the apex, and into the axilla. No diastolic murmurs. No obvious gallops or rubs. PMI is laterally displaced. No lifts, heaves, or thrills. No abdominal aortic or renal bruits. ABDOMEN: Bowel sounds present. EXTREMITIES: No clubbing, cyanosis or edema. NEUROLOGIC: The patient is awake, alert and oriented. Pleasant and cooperative. Answers questions appropriately. Speech is clear. Normal movement of bilateral upper and lower extremities. Gait pattern not assessed. LABORATORY DATA: White blood cell count is 15.73, hemoglobin 9.8 g/dL, hematocrit 28.3%, and platelet count 324,000. Sodium 140 mmol/L, potassium 5.2 mmol/L, BUN 115 mg/dL, and creatinine 9.30 mg/dL. Random glucose 92 mg/dL. EKG performed earlier today shows normal sinus rhythm at a rate of 65 beats per minute with an incomplete RBBB, ST and T-wave abnormalities in the inferior and lateral leads, prolonged QT. When compared to ECG of 02/21/2017, T-wave inversion no longer evident in the lateral leads. Echocardiogram was done earlier today. Overall LVEF appears to be normal at 50%-55% with anterior and inferior hypokinesis. Additionally, he has moderate to severe MR. When compared to prior echocardiograms, his mitral regurgitation has gone from mild to moderate to severe, consider papillary muscle ischemia. ASSESSMENT AND PLAN: 1. Vsc-TL-llghref elevation myocardial infarction in a patient with known CAD. 2. History of CABG x 2 vessels including HUMPHREYS to LAD, SVG to 2 branches of the ramus and prior stents to the distal LAD and stent from distal LMCA into LCX. 3. Moderate to Severe mitral regurgitation, this is a new finding. 4. History of Ischemic Cardiomyopathy. 5. Peripheral Vascular Disease with extensive calcifications in the abdominal aorta and iliacs. 6. ESRD on hemodialysis. 7. Hypertension. 8. Dyslipidemia. PLAN: 1. The patient is currently asymptomatic, but he did have some more chest discomfort earlier today consistent with angina pectoris. 2. Continue Toprol-XL 50 mg b.i.d. 3. Continue dual antiplatelet therapy. 4. Continue Isosorbide Mononitrate 60 mg b.i.d. as well as topical nitrates. 5. Continue usp statin medication. 6. Remain off of heparin as he has had bleeding complications in the past and during this hospitalization. 7. Ongoing analgesics as needed for chest pain. 8. Arrangements will be made for left heart catheterization/coronary angiography at [facility] cardiac catheterization laboratory tomorrow (if laboratory is available). He will be made n.p.o. after midnight except for medications. 9. We will make further recommendations pending the outcome of his cardiac catheterization +/- PCI. If PCI is needed -- may require transfer to tertiary care center depending on complexity. 10. Continue monitoring daily laboratories and daily EKGs. 11. The patient agrees with this plan. We will continue to closely follow. Patient seen and examined by me the afternoon of 02/22/2017. Above assessment and plan discussed with Mr. Braun. Agree with the assessment and plan.Patient persists with recurrent anginal symptoms. Cardiac cath indicated. Procedure ,risks,benefits, alternatives of cardiac cath and PCI discussed with patient by me. Patient agrees to proceed with cath on 02/23/17. Palma Molina MD [facility]
--- NOTE | 2017-02-22 15:43 | DIAGNOSTIC IMAGING REPORT ---
HEAD WITHOUT CONTRAST (CT) CT DOSE: 537.48 mGy.cm HISTORY: Mental status change blurry vision and decreased vision TECHNIQUE: Multiaxial CT images of the head were performed without the use of intravenous contrast. A dose lowering technique was utilized adhering to the principles of ALARA. Comparison: 07/14/2014 Findings: The paranasal sinuses and mastoid air cells are clear. The calvarium and skull base are intact. The ventricles and sulci are within normal limits. There is no mass, hematoma, midline shift, or acute infarct. Impression: No acute intracranial abnormality. The above report was generated using voice recognition software. It may contain grammatical, syntax or spelling errors. Electronically signed by: Sebastian Vidal M.D. 02/22/2017 3:42 PM Dictated Date/Time: 02/22/2017 3:40 PM
--- NOTE | 2017-02-22 17:00 | Nephrology Progress Note ---
Nephrology Progress Note Date of Service Feb 22, 2017. Chief Complaint ESRD on HD admitted w/ NSTEMI Subjective Mr. Segura was seen & evaluated this afternoon following his dialysis treatment. Hospital records were reviewed. Patient was admitted for evaluation of a NSTEMI. He is currently chest pain free. Mr. Segura reports that he is scheduled for cardiac catheterization tomorrow. Routine dialysis was carried out earlier this afternoon. Heparin was not given due to recent h/ o nose bleed and anemia. Patient was hemodynamically stable throughout dialysis. Near the end of his treatment Mr. Segura complained of a headache and blurred vision in his left eye. Head CT was negative for hemorrhage. Ophthalmology consultation has been requested. Review of Systems Constitutional: No fever Eyes: + worsening of vision ENT: No hearing loss Cardiovascular: No chest pain Respiratory: No productive cough Abdomen: No pain, No nausea, No vomiting Extremities: No leg edema A complete review of systems was performed. Pertinent positives are noted above. All other systems are negative. Vital Signs Last 8 Hrs Date Time Temp Pulse Resp B/P (MAP) Pulse Ox O2 Delivery O2 Flow Rate FiO2 02/22/17 15:12 37.0 71 22 118/71 (87) 99 Room Air 02/22/17 13:37 36.3 65 120/65 (83) 02/22/17 13:27 67 111/65 02/22/17 13:06 65 125/67 02/22/17 12:45 59 126/65 02/22/17 12:15 69 126/72 02/22/17 12:04 36.3 66 19 122/70 (87) 100 Room Air 02/22/17 12:00 Room Air 02/22/17 11:45 70 122/70 02/22/17 11:15 70 114/74 02/22/17 10:45 68 111/66 02/22/17 10:15 70 122/70 02/22/17 09:48 36.5 70 144/78 (100) 02/22/17 09:45 69 134/73 02/22/17 09:27 71 141/75 I & O 24-Hour Column 02/23/17 07:59 Output Total 2000 ml Balance -2000 ml Last Recorded Weight Weight (Kilograms): 62.600 Physical Exam General Appearance: no apparent distress Head: normocephalic, atraumatic Eyes: PERRL, EOMI Neck: supple, no adenopathy Respiratory/Chest: lungs clear Cardiovascular: regular rate, rhythm, + systolic murmur Abdomen/GI: normal bowel sounds, non tender, soft Extremities/Musculoskelatal: no pedal edema, + pertinent finding (AVF + bruit) Neurologic/Psych: alert, normal mood/affect, oriented x 3 Family History FH: heart disease Social History Smoking Status: Never smoker Drug Use: none Marital Status: Housing Status: lives with family Occupation: employed, disabled Laboratory Results Past 24 Hours 02/22/17 05:40 02/22/17 05:40 Test 02/22/17 05:40 Red Blood Count 2.88 M/uL (4.7-6.1) Mean Corpuscular Volume 98.3 fL (80-100) Mean Corpuscular Hemoglobin 34.0 pg (25-34) Mean Corpuscular Hemoglobin Concent 34.6 g/dl (32-36) RDW Standard Deviation 60.6 fL (36.4-46.3) RDW Coefficient of Variation 17.3 % (11.5-14.5) Mean Platelet Volume 10.3 fL (7.4-10.4) Anion Gap 13.0 mmol/L (3-11) Est Creatinine Clear Calc Drug Dose 8.5 ml/min Estimated GFR () 6.8 Estimated GFR (Non- 5.9 BUN/Creatinine Ratio 12.4 (10-20) Calcium Level 8.5 mg/dl (8.5-10.1) Allergies Coded Allergies: POLLEN (Verified Allergy, Unknown, "HAYFEVER", 02/19/17) Diazoxide (Verified Adverse Reaction, Intermediate, ELEVATE BP;N&V, ) NSAIDs (Verified Adverse Reaction, Unknown, KIDNEY TRANSPLANT, 02/19/17) Medications Current Inpatient Medications Medications (Trade) Dose Ordered Sig/Amanda Route Start Time Stop Time Status Last Admin Dose Admin Nitroglycerin (Nitrostat Tab) 0.4 mg UD PRN SL 02/19/17 12:15 03/21/17 12:14 02/22/17 05:18 0.4 MG Hydromorphone HCl (Dilaudid Inj) 0.5 mg Q4H PRN IV 02/19/17 12:30 03/05/17 12:29 02/22/17 15:53 0.5 MG Atorvastatin Calcium (Lipitor Tab) 20 mg HS PO 02/19/17 21:00 03/21/17 20:59 02/21/17 20:00 20 MG Clopidogrel Bisulfate (plAVix TAB) 75 mg DAILY PO 02/20/17 09:00 03/22/17 08:59 02/22/17 07:25 75 MG Isosorbide Mononitrate (Imdur Ext Rel Tab) 60 mg BID PO 02/19/17 21:00 03/21/17 20:59 02/22/17 07:25 60 MG Oxycodone HCl (Roxicodone Immediate Rel Tab) 5 mg Q4H PRN PO 02/19/17 12:30 03/05/17 12:29 02/21/17 20:07 5 MG Pantoprazole Sodium (Protonix Tab) 40 mg DAILY PO 02/20/17 09:00 03/22/17 08:59 02/22/17 07:26 40 MG Vitamin B Complex/ Vit C/Folic Acid (Nephrocaps) 1 cap DAILY PO 02/20/17 09:00 03/22/17 08:59 02/22/17 07:25 1 CAP Miscellaneous Information (Order Awaiting Action) 1 ea QS N/A 02/19/17 16:00 03/21/17 15:59 Sevelamer HCl (Renagel Tab) 1,600 mg TIDM PO 02/19/17 16:30 03/21/17 16:29 02/22/17 07:24 1,600 MG Aspirin (Ecotrin Tab) 81 mg QAM PO 02/20/17 09:00 03/22/17 08:59 02/22/17 07:23 81 MG Ondansetron HCl (Zofran Inj) 4 mg Q8 PRN IV 02/19/17 14:00 03/21/17 13:59 02/22/17 14:29 4 MG Zolpidem Tartrate (Ambien Tab) 5 mg HS PRN PO 02/19/17 22:00 03/21/17 21:59 02/21/17 21:31 5 MG Nitroglycerin (Nitroglycerin 2% Oint) 1 inch Q6H EXT 02/20/17 00:00 03/22/17 00:00 02/22/17 11:35 1 INCH Fentanyl Citrate (Fentanyl Inj) 25 mcg Q1HWA PRN IV 02/20/17 09:00 03/06/17 08:59 02/21/17 11:46 25 MCG Metoprolol Succinate (Toprol Xl Tab) 50 mg BID PO 02/20/17 21:00 03/22/17 20:59 02/22/17 07:26 50 MG Heparin Sodium/ Dextrose 500 ml @ 23 mls/hr [id number] PRN IV 02/20/17 11:45 03/22/17 11:44 Future Hold 02/20/17 12:22 23 MLS/HR Docusate Sodium (coLACE CAP) 100 mg BID PO 02/22/17 21:00 03/24/17 20:59 Impression (1) End-stage renal disease on hemodialysis (2) NSTEMI (non-ST elevated myocardial infarction) (3) Anemia (4) Chronic systolic CHF (congestive heart failure) Mr. 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 He is on HD MWF at [facility]. Medical history is notable for an extensive history of cardiovascular disease. He was admitted with NSTEMI. Patient has required transfusion w/ 2 units PRBC this hospitalization due to nose bleed. Heparin has been discontinued Recommendations END STAGE RENAL DISEASE: -- Spoke w/ HD RN directly. Heparin held during HD today due to recent nose bleed. HD flow sheets reviewed this afternoon. Patient was hemodynamically stable throughout his treatment. -- Will obtain follow up CBC, PRP in am ASCVD: -- Admitted w/ NSTEMI. Patient is now chest pain free. Cardiology recommendations reviewed this afternoon. Echocardiogram shows worsening MR concerning for papillary muscle ischemia / dysfunction. Patient is scheduled for cardiac catheterization tomorrow. Await results. OPTHO: -- Decreased visual acuity in left eye. Head CT report reviewed this afternoon. No acute intracranial event. No mass reported. Ophthalmology has been consulted. Await their recommendations.
--- NOTE | 2017-02-22 17:36 | Medical Consult ---
Consultation Date of Consultation: Feb 22, 2017. Attending Physician: Yonathan Mcknight MD, PhD Reason for Consultation: acute loss of vision, left eye History of Present Illness Patient reports that during dialysis today he noticed a sudden drop in vision in his left eye. He also reports feeling discomfort in the ear and the left side of the face at that time. He now reports that the symptoms have somewhat improved but the vision is still blurry in the left eye. The patients past ocular history is significant for steroid induced cataracts which were removed many years ago. His last eye exam was 2 years ago and he believes that he had increased intraocular pressure at that visit. Past Medical/Surgical History Medical Problems: (1) Acute coronary syndrome Status: Acute (2) Atrial flutter with rapid ventricular response Status: Acute (3) Chest pain Status: Acute (4) Chest pain Status: Acute (5) Chest pain Status: Acute (6) Elevated troponin Status: Acute (7) Elevated troponin Status: Acute (8) End stage renal disease Status: Acute (9) Epistaxis Status: Acute (10) ESRD (end stage renal disease) Status: Acute (11) GI bleed Status: Acute (12) Hyperbilirubinemia Status: Acute (13) Lower GI bleeding Status: Acute (14) Peptic ulcer disease Status: Acute (15) Precordial chest pain Status: Acute (16) RUQ abdominal pain Status: Acute (17) Sepsis Status: Acute (18) Sepsis Status: Acute (19) Substernal precordial chest pain Status: Acute (20) Unstable angina Status: Acute (21) Upper abdominal pain Status: Acute (22) Wrist pain, left Status: Acute Social History Problems: (1) H/O splenectomy Status: Acute Family History FH: heart disease Social History Smoking Status: Never Smoker Drug Use: none Marital Status: Housing Status: lives with significant other Occupation Status: employed, disabled Allergies Coded Allergies: POLLEN (Verified Allergy, Unknown, "HAYFEVER", 02/19/17) Diazoxide (Verified Adverse Reaction, Intermediate, ELEVATE BP;N&V, ) NSAIDs (Verified Adverse Reaction, Unknown, KIDNEY TRANSPLANT, 02/19/17) Current Inpatient Medications Current Inpatient Medications Medications (Trade) Dose Ordered Sig/Amanda Route Start Time Stop Time Status Last Admin Dose Admin Nitroglycerin (Nitrostat Tab) 0.4 mg UD PRN SL 02/19/17 12:15 03/21/17 12:14 02/22/17 05:18 0.4 MG Hydromorphone HCl (Dilaudid Inj) 0.5 mg Q4H PRN IV 02/19/17 12:30 03/05/17 12:29 02/22/17 15:53 0.5 MG Atorvastatin Calcium (Lipitor Tab) 20 mg HS PO 02/19/17 21:00 03/21/17 20:59 02/21/17 20:00 20 MG Clopidogrel Bisulfate (plAVix TAB) 75 mg DAILY PO 02/20/17 09:00 03/22/17 08:59 02/22/17 07:25 75 MG Isosorbide Mononitrate (Imdur Ext Rel Tab) 60 mg BID PO 02/19/17 21:00 03/21/17 20:59 02/22/17 07:25 60 MG Oxycodone HCl (Roxicodone Immediate Rel Tab) 5 mg Q4H PRN PO 02/19/17 12:30 03/05/17 12:29 02/21/17 20:07 5 MG Pantoprazole Sodium (Protonix Tab) 40 mg DAILY PO 02/20/17 09:00 03/22/17 08:59 02/22/17 07:26 40 MG Vitamin B Complex/ Vit C/Folic Acid (Nephrocaps) 1 cap DAILY PO 02/20/17 09:00 03/22/17 08:59 02/22/17 07:25 1 CAP Miscellaneous Information (Order Awaiting Action) 1 ea QS N/A 02/19/17 16:00 03/21/17 15:59 Sevelamer HCl (Renagel Tab) 1,600 mg TIDM PO 02/19/17 16:30 03/21/17 16:29 02/22/17 07:24 1,600 MG Aspirin (Ecotrin Tab) 81 mg QAM PO 02/20/17 09:00 03/22/17 08:59 02/22/17 07:23 81 MG Ondansetron HCl (Zofran Inj) 4 mg Q8 PRN IV 02/19/17 14:00 03/21/17 13:59 02/22/17 14:29 4 MG Zolpidem Tartrate (Ambien Tab) 5 mg HS PRN PO 02/19/17 22:00 03/21/17 21:59 02/21/17 21:31 5 MG Nitroglycerin (Nitroglycerin 2% Oint) 1 inch Q6H EXT 02/20/17 00:00 03/22/17 00:00 02/22/17 11:35 1 INCH Fentanyl Citrate (Fentanyl Inj) 25 mcg Q1HWA PRN IV 02/20/17 09:00 03/06/17 08:59 02/21/17 11:46 25 MCG Metoprolol Succinate (Toprol Xl Tab) 50 mg BID PO 02/20/17 21:00 03/22/17 20:59 02/22/17 07:26 50 MG Heparin Sodium/ Dextrose 500 ml @ 23 mls/hr [id number] PRN IV 02/20/17 11:45 03/22/17 11:44 Future Hold 02/20/17 12:22 23 MLS/HR Docusate Sodium (coLACE CAP) 100 mg BID PO 02/22/17 21:00 03/24/17 20:59 Physical Exam Date Time Temp Pulse Resp B/P (MAP) Pulse Ox O2 Delivery O2 Flow Rate FiO2 02/22/17 15:12 37.0 71 22 118/71 (87) 99 Room Air 02/22/17 13:37 36.3 65 120/65 (83) 02/22/17 13:27 67 111/65 02/22/17 13:06 65 125/67 02/22/17 12:45 59 126/65 02/22/17 12:15 69 126/72 02/22/17 12:04 36.3 66 19 122/70 (87) 100 Room Air 02/22/17 12:00 Room Air 02/22/17 11:45 70 122/70 02/22/17 11:15 70 114/74 02/22/17 10:45 68 111/66 02/22/17 10:15 70 122/70 02/22/17 09:48 36.5 70 144/78 (100) 02/22/17 09:45 69 134/73 02/22/17 09:27 71 141/75 02/22/17 08:00 Room Air 02/22/17 07:19 36.6 67 19 131/77 (95) 100 Room Air 02/22/17 06:45 134/81 (98) 02/22/17 04:00 Room Air 02/22/17 03:55 36.5 65 16 105/63 (77) 97 Room Air 02/21/17 23:59 Room Air 02/21/17 23:35 36.6 69 18 113/65 (81) 99 Room Air 02/21/17 21:36 75 144/72 (96) 02/21/17 20:00 Room Air 02/21/17 19:02 36.5 70 18 155/89 (111) 99 Room Air Vision: 20/20 OD 20/30 OS (on a near card with correction) EOM: full Confrontation visual lobo: full OD, somewhat constricted OS. Pupils: very small and minimally reactive OU, no APD Pen light exam: normal lids, conjunctiva, sclera, cornea, anterior chamber and lenses. There is a peripheral iridotomy superiorly OD Dilated funduscopic exam:normal macula, retinal vessels, and peripheral retina OU. optic nerve OS cup to disc ratio 0.6, cup to disc OD 0.4 Laboratory Results Last 24 Hours Test 02/22/17 05:40 White Blood Count 15.73 K/uL Red Blood Count 2.88 M/uL Hemoglobin 9.8 g/dL Hematocrit 28.3 % Mean Corpuscular Volume 98.3 fL Mean Corpuscular Hemoglobin 34.0 pg Mean Corpuscular Hemoglobin Concent 34.6 g/dl RDW Standard Deviation 60.6 fL RDW Coefficient of Variation 17.3 % Platelet Count 324 K/uL Mean Platelet Volume 10.3 fL Sodium Level 140 mmol/L Potassium Level 5.2 mmol/L Chloride Level 102 mmol/L Carbon Dioxide Level 25 mmol/L Anion Gap 13.0 mmol/L Blood Urea Nitrogen 115 mg/dl Creatinine 9.30 mg/dl Est Creatinine Clear Calc Drug Dose 8.5 ml/min Estimated GFR () 6.8 Estimated GFR (Non- 5.9 BUN/Creatinine Ratio 12.4 Random Glucose 92 mg/dl Calcium Level 8.5 mg/dl Assessment & Plan Patient has possible glaucoma in the left eye. However, this is a chronic problem and would not explain the sudden vision change today. The acute symptoms are of unclear etiology. Possibilities include retinal arteriole occlusion that is too small to see with a bedside exam, dry eye keratopathy, or migraine. I did not find any acute pathology that requires intervention while in the hospital. I would recommend follow up as an outpatient for more formal glaucoma testing including intraocular pressure measurement, optic nerve imaging , and automated visual field testing as well as more thorough retinal evaluation. Please have the patient call our office for follow up on discharge ([phone]).
[2017-02-22] MEDS: ATORVASTATIN 20 MG TAB PO SCH (19:52)
[2017-02-22] MEDS: DOCUSATE SODIUM 100 MG CAP PO SCH (19:52)
[2017-02-22] MEDS: ZOLPIDEM TARTRATE 5 MG TAB PO PRN (22:23)
[2017-02-23] VITALS (11 sets, daily range): BP systolic 95–131; BP diastolic 59–76; PULSE 71–104; TEMP 36.7–37.2; O2SAT 94–97
[2017-02-23] MEDS: HYDROmorphone INJ 0.5 MG/0.5 ML SYR IV PRN ×4 (01:36→13:45)
[2017-02-23] MEDS: NITROGLYCERIN OINT 2% 1GM PACKET EXT SCH ×3 (01:37→13:42)
[2017-02-23 07:24] LABS: BASO % 0.1 %; BASO ABS # 0.02 K/uL (0-0.2); COMPLETE YES; EOS % 0.6 %; HEMATOCRIT 30.5 % (42-52); IG% 0.5 %; LYMPH ABS # 4.65 K/uL (1.2-3.4); MEAN CELL VOLUME 97.1 fL (80-100); MEAN CORPUSCULAR HEMOGLOBIN 32.5 pg (25-34); MEAN CORPUSCULAR HGB CONC 33.4 g/dl (32-36); MEAN PLATELET VOLUME 9.8 fL (7.4-10.4); MONO % 14.6 %; NEUT % 54.2 %; PLATELET COUNT 319 K/uL (130-400); RED BLOOD COUNT 3.14 M/uL (4.7-6.1); WHITE BLOOD COUNT 15.49 K/uL (4.8-10.8)
[2017-02-23] MEDS: SEVELAMER HYDROCH 800 MG TAB PO SCH ×3 (07:30→11:30)
[2017-02-23] MEDS: ONDANSETRON INJ 2 MG/ML 2 ML VIAL IV PRN ×2 (07:32→13:45)
[2017-02-23 07:52] LABS: CALCIUM 8.5 mg/dl (8.5-10.1); POTASSIUM 4.8 mmol/L (3.5-5.1)
[2017-02-23] MEDS: PANTOprazole SOD 40 MG TAB PO SCH (09:05)
[2017-02-23] MEDS: CLOPIDOGREL BISULFATE 75 MG TAB PO SCH (09:05)
[2017-02-23] MEDS: NEPHROCAPS PO SCH (09:05)
[2017-02-23] MEDS: ISOSORBIDE MONONITRATE 60 MG TABCR PO SCH (09:05)
[2017-02-23] MEDS: ASPIRIN 81 MG ECTAB PO SCH (09:05)
[2017-02-23] MEDS: METOPROLOL SUCC 50MG EXT REL TAB PO SCH (09:06)
[2017-02-23] MEDS: DOCUSATE SODIUM 100 MG CAP PO SCH (09:07)
--- NOTE | 2017-02-23 09:13 | Progress Note ---
Subjective Date of Service: Feb 23, 2017. Subjective Pt evaluation today including: conversation w/ patient, conversation w/ family , physical exam, chart review, lab review, review of studies, conversation w/ review consultant, review of inpatient medication list feeling tired, mild nauseation , no chest pain, left eye blurry vision is a little better, no decreased vision Problem List Medical Problems: (1) Acute coronary syndrome Status: Acute (2) Atrial flutter with rapid ventricular response Status: Acute (3) Chest pain Status: Acute (4) Chest pain Status: Acute (5) Chest pain Status: Acute (6) Elevated troponin Status: Acute (7) Elevated troponin Status: Acute (8) End stage renal disease Status: Acute (9) Epistaxis Status: Acute (10) ESRD (end stage renal disease) Status: Acute (11) GI bleed Status: Acute (12) Hyperbilirubinemia Status: Acute (13) Lower GI bleeding Status: Acute (14) Peptic ulcer disease Status: Acute (15) Precordial chest pain Status: Acute (16) RUQ abdominal pain Status: Acute (17) Sepsis Status: Acute (18) Sepsis Status: Acute (19) Substernal precordial chest pain Status: Acute (20) Unstable angina Status: Acute (21) Upper abdominal pain Status: Acute (22) Wrist pain, left Status: Acute Social History Problems: (1) H/O splenectomy Status: Acute Review of Systems Constitutional: + fatigue, No fever, No chills, No sweats, No weight loss, No weakness, No problem reported Eyes: + see HPI, No worsening of vision, No eye pain, No redness, No discharge , No diplopia ENT: No hearing loss, No unusual epistaxis, No nasal symptoms, No sore throat, No tinnitus, No dental problems, No trouble swallowing Respiratory: No cough, No sputum, No wheezing, No shortness of breath, No dyspnea on exertion, No dyspnea at rest, No hemoptysis Cardiac: No chest pain, No orthopnea, No PND, No edema, No claudication, No palpitations Abdomen: + nausea, No pain, No vomiting, No diarrhea, No constipation Musculoskeletal: No joint pain, No muscle pain, No swelling, No calf pain Male : No dysuria, No urinary frequency, No incontinence, No nocturia more than once/night, No slowing stream, No hematuria Neurologic: No memory loss, No paralysis, No weakness, No numbness/tingling, No vertigo, No balance problems Psychiatric: No depression symptoms, No anhedonism, No anxiety, No insomnia, No substance abuse Heme: No abnormal bleeding/bruising, No clotting problems, No swollen lymph nodes, No night sweats Endo: No fatigue, No excessive thirst, No excessive urination Skin: No rash, No itch, No new/changing skin lesions, No color change, No bleeding Objective Vital Signs Date Time Temp Pulse Resp B/P (MAP) Pulse Ox O2 Delivery O2 Flow Rate FiO2 02/23/17 08:21 36.9 97 18 121/74 (90) 94 02/23/17 05:55 76 114/72 (86) 02/23/17 04:23 37.2 74 21 105/64 (78) 97 Room Air 02/23/17 04:00 Room Air 02/23/17 01:32 77 131/76 (94) 02/22/17 23:59 Room Air 02/22/17 23:09 37.0 79 15 91/54 (66) 94 Room Air 02/22/17 20:00 Room Air 02/22/17 19:49 36.9 68 18 124/70 (88) 98 Room Air 02/22/17 16:00 Room Air 02/22/17 15:12 37.0 71 22 118/71 (87) 99 Room Air 02/22/17 13:37 36.3 65 120/65 (83) 02/22/17 13:27 67 111/65 02/22/17 13:06 65 125/67 02/22/17 12:45 59 126/65 02/22/17 12:15 69 126/72 02/22/17 12:04 36.3 66 19 122/70 (87) 100 Room Air 02/22/17 12:00 Room Air 02/22/17 11:45 70 122/70 02/22/17 11:15 70 114/74 02/22/17 10:45 68 111/66 02/22/17 10:15 70 122/70 02/22/17 09:48 36.5 70 144/78 (100) 02/22/17 09:45 69 134/73 02/22/17 09:27 71 141/75 Physical Exam General Appearance: WD/WN, no apparent distress, + pertinent finding (tired looking) Eyes: normal inspection, PERRL, EOMI, sclerae normal ENT: normal ENT inspection, hearing grossly normal, pharynx normal Neck: supple, no adenopathy, thyroid normal, no JVD, no carotid bruits, trachea midline Respiratory/Chest: chest non-tender, normal breath sounds, no respiratory distress, no accessory muscle use, + decreased breath sounds Cardiovascular: regular rate, rhythm, no edema, no gallop, no JVD, no murmur, + systolic murmur (3/6 is note new) Abdomen: normal bowel sounds, non tender, soft, no organomegaly, no pulsatile mass Extremities: normal range of motion, non-tender, normal inspection, no pedal edema, no calf tenderness, normal capillary refill, pelvis stable Neurologic/Psychiatric: 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 as tested, no motor/sensory deficits, alert, normal mood/affect, oriented x 3 Skin: normal color, warm/dry, no rash Lymphatic: no adenopathy Laboratory Results Last 24 Hours Test 02/23/17 06:00 02/23/17 07:14 Magnesium Level 2.3 mg/dl White Blood Count 15.49 K/uL Red Blood Count 3.14 M/uL Hemoglobin 10.2 g/dL Hematocrit 30.5 % Mean Corpuscular Volume 97.1 fL Mean Corpuscular Hemoglobin 32.5 pg Mean Corpuscular Hemoglobin Concent 33.4 g/dl Platelet Count 319 K/uL Mean Platelet Volume 9.8 fL Neutrophils (%) (Auto) 54.2 % Lymphocytes (%) (Auto) 30.0 % Monocytes (%) (Auto) 14.6 % Eosinophils (%) (Auto) 0.6 % Basophils (%) (Auto) 0.1 % Neutrophils # (Auto) 8.39 K/uL Lymphocytes # (Auto) 4.65 K/uL Monocytes # (Auto) 2.26 K/uL Eosinophils # (Auto) 0.10 K/uL Basophils # (Auto) 0.02 K/uL RDW Standard Deviation 59.2 fL RDW Coefficient of Variation 17.2 % Immature Granulocyte % (Auto) 0.5 % Immature Granulocyte # (Auto) 0.07 K/uL Nucleated RBC Absolute Count (auto) 0.07 K/uL Nucleated Red Blood Cells % 0.5 % Sodium Level 137 mmol/L Potassium Level 4.8 mmol/L Chloride Level 101 mmol/L Carbon Dioxide Level 27 mmol/L Anion Gap 9.0 mmol/L Blood Urea Nitrogen 49 mg/dl Creatinine 6.00 mg/dl Est Creatinine Clear Calc Drug Dose 12.7 ml/min Estimated GFR () 11.6 Estimated GFR (Non- 10.0 BUN/Creatinine Ratio 8.0 Random Glucose 78 mg/dl Calcium Level 8.5 mg/dl Assessment and Plan 51M with ESRD on HD, presents with chest pain and elevated troponin with some ST changes, known CAD with SVG and HUMPHREYS Non-ST elevation (NSTEMI) myocardial infarction with chest pain and Elevated troponin with EKG changes history of Coronary artery disease status post coronary artery bypass graft. relative stable plan C per electrical tryout person today was on cautiously heparin given recent epistaxis with minor recurrence 02/20-2016, which was discontinued per cardiology recommendation Continue beta rubin, stating, aspirin, Plavix, and nitroglycerin Acute blood loss anemia with 3 grams of hemoglobin drop secondary to nasal bleed that has been recurrent within the last 2 months, HB stable, transfused 2 u prbc given concern for ACS on 02/21/2017 acute left eye blurry vision, today is a little better head Ct unremarkable ophth eval pt possible glaucoma in the left eye. However, this is a chronic problem and would not explain the sudden vision change . Per ophth: the acute symptoms are of unclear etiology. Possibilities include retinal arteriole occlusion that is too small to see with a bedside exam, dry eye keratopathy, or migraine. so far did not find any acute pathology that requires intervention while in the hospital. ophth recs follow up as an outpatient for more formal glaucoma testing including intraocular pressure measurement, optic nerve imaging, and automated visual field testing as well as more thorough retinal evaluation. need to have the patient call oph Dr. Cottrell 's office for follow up on discharge ([phone]). End-stage renal disease on dialysis. likely also anemia of chronic disease Adrenal suppression with history of chronic prednisone, stress dose steroids, initially low blood pressure on admission. Constipation: Start Colace DVT and GI prophylaxis is covered, social work therapist for discharge plan d/w pt and , answered all questions Continued [facility] stay due to: home environment unsafe for pt Discharge planning: home
[2017-02-23] MEDS: NITROGLYCERIN 0.4 MG SL PER TAB CHARGE SL PRN (09:27)
--- NOTE | 2017-02-23 10:35 | NEPHROLOGY PROGRESS NOTE ---
DATE: 02/23/2017 SUBJECTIVE: Mr. Segura has had a recurrent episode of chest pain this morning, relieved with nitroglycerin and apparently also with Dilaudid. At the current time, he is pain free. He is somewhat anxious about his upcoming cardiac catheterization. He is anxious more for what he may have to go through subsequently than the procedure itself. He has no current symptoms of uremia or volume overload. He was dialyzed yesterday uneventfully. OBJECTIVE: GENERAL: On physical exam at the current time, Mr. Segura appears as a chronically ill gentleman, younger than his stated age of 51. VITAL SIGNS: He is afebrile (36.9), his blood pressure 121/74, his pulse 97 and regular, respiratory rate is 18, and his pulse ox 94%-97% on room air. SKIN: Shows normal skin turgor. He has a deeply bronze complexion consistent with his chronic renal disease. He does not appear pale. He has scars from prior surgical procedures including a midsternal scar from prior cardiac surgery and a scar on his left arm for the creation of his AV fistula, which is dilated in the left arm. He has multiple dialysis needle tract royal over the fistula. He has bilateral lower quadrant scars from prior transplants and scars on his left leg from previous trauma and associated surgery. LYMPHATICS: Show no palpable adenopathy. HEAD: Normal. EYES: Grossly normal. His conjunctivae are not icteric. Pupils are equal and reactive to light. EARS, NOSE, MOUTH AND THROAT: Unremarkable other than the fact that his dentition is in very poor repair and his oral mucous membranes are moist. NECK: Supple. There is no jugular venous distention or thyromegaly. He has a murmur transmitted to both carotids from a murmur at the base of his heart. CHEST: Clear to auscultation. CARDIAC: Shows a regular rhythm. S1 and S2 are normal. He has a grade 3/6 systolic murmur heard over the entire precordium. ABDOMEN: Soft and nontender. There is no organomegaly or mass. Bowel sounds are normal. I hear no definite abdominal bruits. He has a barely palpable lower quadrant transplants. He has a hernia in the right lower quadrant as well. EXTREMITIES: Show no cyanosis, clubbing or peripheral edema. Peripheral pulses are intact. He has a murmur over the right femoral artery from a prior traumatic AV fistula. NEUROLOGIC: Shows no lateralizing changes. LABORATORY DATA: Pertinent laboratory work from today shows a white count of 15,490 with an essentially normal differential. His hemoglobin is 10.2, his hematocrit 30.5, and his platelet count 319,000. His clinical chemistries show a sodium of 137 mmol/L, potassium 4.8 mmol/L, chloride is 101 mmol/L, and CO2 content 27 mmol/L. His BUN is 49 and his creatinine 6.00. His random blood sugar is 78. His serum calcium is 8.5. ASSESSMENT: Mr. Segura is a 51-year-old gentleman with end-stage renal disease. He now presents with a non-ST segment elevation myocardial infarction. He has had recurring chest pain. He has had coronary artery bypass surgery done in the past as well as cardiac interventions. Because of his recurrent episodes of chest pain, a cardiac catheterization will be done today. Further plans will obviously depend on the outcome. If he is here tomorrow, we will plan for his dialysis here. However, if the results of his catheterization require transfer to a tertiary care facility, I will notify them of the transfer and associated dialysis parameters.
[2017-02-23] MEDS ORDERED: MIDAZOLAM HCL 1 MG/ML 2ML VIAL ONE (12:14)
--- NOTE | 2017-02-23 12:21 | Cardiology Follow-Up ---
Subjective Subjective Date of Service: Feb 23, 2017. Pt evaluation today including: conversation w/ family, physical exam, chart review, lab review, review of studies, review of inpatient medication list Additional Details: No significant chest pain overnight. Visual symptoms have improved. No recurrent epistaxis. No other new complaints. Tele reviewed - brief NSVT 3 beats Problem List Medical Problems: (1) Acute coronary syndrome Status: Acute (2) Atrial flutter with rapid ventricular response Status: Acute (3) Chest pain Status: Acute (4) Chest pain Status: Acute (5) Chest pain Status: Acute (6) Elevated troponin Status: Acute (7) Elevated troponin Status: Acute (8) End stage renal disease Status: Acute (9) Epistaxis Status: Acute (10) ESRD (end stage renal disease) Status: Acute (11) GI bleed Status: Acute (12) Hyperbilirubinemia Status: Acute (13) Lower GI bleeding Status: Acute (14) Peptic ulcer disease Status: Acute (15) Precordial chest pain Status: Acute (16) RUQ abdominal pain Status: Acute (17) Sepsis Status: Acute (18) Sepsis Status: Acute (19) Substernal precordial chest pain Status: Acute (20) Unstable angina Status: Acute (21) Upper abdominal pain Status: Acute (22) Wrist pain, left Status: Acute Social History Problems: (1) H/O splenectomy Status: Acute Review of Systems Constitutional: + fatigue, No fever, No chills, No problem reported Eyes: No worsening of vision, No eye pain ENT: No hearing loss, No unusual epistaxis Respiratory: + dyspnea on exertion, No cough, No sputum Cardiac: No chest pain, No orthopnea, No palpitations Abdomen: No pain, No vomiting, No diarrhea Musculoskeletal: No joint pain, No muscle pain, No swelling, No calf pain Male : No dysuria, No incontinence Neurologic: No memory loss, No paralysis, No weakness Psychiatric: No depression symptoms, No anhedonism Heme: No abnormal bleeding/bruising, No clotting problems Endo: No fatigue Skin: No rash, No itch Objective Vital Signs Last Vital Signs Documentation Date Time Temp Pulse Resp B/P (MAP) Pulse Ox O2 Delivery O2 Flow Rate FiO2 02/23/17 08:21 36.9 97 18 121/74 (90) 94 02/23/17 04:23 Room Air 02/21/17 06:01 2.0 Physical Exam: General Appearance: no apparent distress ENT: hearing grossly normal, pharynx normal Neck: supple, no adenopathy, no JVD, no carotid bruits Respiratory/Chest: chest non-tender, normal breath sounds, no accessory muscle use Cardiovascular: regular rate, rhythm, + systolic murmur (3/6 holosystolic murmur) Abdomen: normal bowel sounds, non tender, no organomegaly Extremities: normal range of motion, no pedal edema, no calf tenderness Neurologic/Psychiatric: alert, normal mood/affect Skin: warm/dry, no rash Lymphatic: no adenopathy Assessment and Plan 1. NSTEMI 2. History of CABG x 2 vessels including HUMPHREYS to LAD, SVG to 2 branches of the ramus and prior stents to the distal LAD, distal LMCA into LCX. 3. New moderate to Severe mitral regurgitation 4. History of Ischemic Cardiomyopathy. 5. Peripheral Vascular Disease with extensive calcifications in the abdominal aorta and iliacs. 6. ESRD on hemodialysis. 7. Hypertension. 8. Dyslipidemia. 9. Anemia with recurrent Epistaxis Patient with continued intermittent chest pain this AM. Post HD yesterday, stable blood counts post transfusion, received ASA/Plavix today Will plan to proceed with cardiac catheterization via Lt Femoral artery today Further recommendations pending cath findings Continued [facility] stay due to: home environment unsafe for pt Discharge planning: home Medications: Current Inpatient Medications Medications (Trade) Dose Ordered Sig/Amanda Route Start Time Stop Time Status Last Admin Dose Admin Nitroglycerin (Nitrostat Tab) 0.4 mg UD PRN SL 02/19/17 12:15 03/21/17 12:14 02/23/17 09:27 0.4 MG Hydromorphone HCl (Dilaudid Inj) 0.5 mg Q4H PRN IV 02/19/17 12:30 03/05/17 12:29 02/23/17 09:27 0.5 MG Atorvastatin Calcium (Lipitor Tab) 20 mg HS PO 02/19/17 21:00 03/21/17 20:59 02/22/17 19:52 20 MG Clopidogrel Bisulfate (plAVix TAB) 75 mg DAILY PO 02/20/17 09:00 03/22/17 08:59 02/23/17 09:05 75 MG Isosorbide Mononitrate (Imdur Ext Rel Tab) 60 mg BID PO 02/19/17 21:00 03/21/17 20:59 02/23/17 09:05 60 MG Oxycodone HCl (Roxicodone Immediate Rel Tab) 5 mg Q4H PRN PO 02/19/17 12:30 03/05/17 12:29 02/21/17 20:07 5 MG Pantoprazole Sodium (Protonix Tab) 40 mg DAILY PO 02/20/17 09:00 03/22/17 08:59 02/23/17 09:05 40 MG Vitamin B Complex/ Vit C/Folic Acid (Nephrocaps) 1 cap DAILY PO 02/20/17 09:00 03/22/17 08:59 02/23/17 09:05 1 CAP Miscellaneous Information (Order Awaiting Action) 1 ea QS N/A 02/19/17 16:00 03/21/17 15:59 Sevelamer HCl (Renagel Tab) 1,600 mg TIDM PO 02/19/17 16:30 03/21/17 16:29 02/23/17 09:05 1,600 MG Aspirin (Ecotrin Tab) 81 mg QAM PO 02/20/17 09:00 03/22/17 08:59 02/23/17 09:05 81 MG Ondansetron HCl (Zofran Inj) 4 mg Q8 PRN IV 02/19/17 14:00 03/21/17 13:59 02/23/17 07:32 4 MG Zolpidem Tartrate (Ambien Tab) 5 mg HS PRN PO 02/19/17 22:00 03/21/17 21:59 02/22/17 22:23 5 MG Nitroglycerin (Nitroglycerin 2% Oint) 1 inch Q6H EXT 02/20/17 00:00 03/22/17 00:00 02/23/17 06:15 1 INCH Fentanyl Citrate (Fentanyl Inj) 25 mcg Q1HWA PRN IV 02/20/17 09:00 03/06/17 08:59 02/21/17 11:46 25 MCG Metoprolol Succinate (Toprol Xl Tab) 50 mg BID PO 02/20/17 21:00 03/22/17 20:59 02/23/17 09:06 50 MG Heparin Sodium/ Dextrose 500 ml @ 23 mls/hr [id number] PRN IV 02/20/17 11:45 03/22/17 11:44 Future Hold 02/20/17 12:22 23 MLS/HR Docusate Sodium (coLACE CAP) 100 mg BID PO 02/22/17 21:00 03/24/17 20:59 02/23/17 09:07 100 MG Lab Results: 02/23/17 07:14 Red Blood Count 3.14, Mean Corpuscular Volume 97.1, Mean Corpuscular Hemoglobin 32.5, Mean Corpuscular Hemoglobin Concent 33.4, Mean Platelet Volume 9.8, Neutrophils (%) (Auto) 54.2, Lymphocytes (%) (Auto) 30.0, Monocytes (%) (Auto) 14.6, Eosinophils (%) (Auto) 0.6, Basophils (%) (Auto) 0.1, Neutrophils # (Auto ) 8.39, Lymphocytes # (Auto) 4.65, Monocytes # (Auto) 2.26, Eosinophils # (Auto ) 0.10, Basophils # (Auto) 0.02 02/23/17 07:14 Test 02/23/17 06:00 02/23/17 07:14 Magnesium Level 2.3 mg/dl (1.8-2.4) White Blood Count 15.49 K/uL (4.8-10.8) Red Blood Count 3.14 M/uL (4.7-6.1) Hemoglobin 10.2 g/dL (14.0-18.0) Hematocrit 30.5 % (42-52) Mean Corpuscular Volume 97.1 fL (80-100) Mean Corpuscular Hemoglobin 32.5 pg (25-34) Mean Corpuscular Hemoglobin Concent 33.4 g/dl (32-36) Platelet Count 319 K/uL (130-400) Mean Platelet Volume 9.8 fL (7.4-10.4) Neutrophils (%) (Auto) 54.2 % Lymphocytes (%) (Auto) 30.0 % Monocytes (%) (Auto) 14.6 % Eosinophils (%) (Auto) 0.6 % Basophils (%) (Auto) 0.1 % Neutrophils # (Auto) 8.39 K/uL (1.4-6.5) Lymphocytes # (Auto) 4.65 K/uL (1.2-3.4) Monocytes # (Auto) 2.26 K/uL (0.11-0.59) Eosinophils # (Auto) 0.10 K/uL (0-0.5) Basophils # (Auto) 0.02 K/uL (0-0.2) RDW Standard Deviation 59.2 fL (36.4-46.3) RDW Coefficient of Variation 17.2 % (11.5-14.5) Immature Granulocyte % (Auto) 0.5 % Immature Granulocyte # (Auto) 0.07 K/uL (0.00-0.02) Nucleated RBC Absolute Count (auto) 0.07 K/uL (0-0) Nucleated Red Blood Cells % 0.5 % Anion Gap 9.0 mmol/L (3-11) Est Creatinine Clear Calc Drug Dose 12.7 ml/min Estimated GFR () 11.6 Estimated GFR (Non- 10.0 BUN/Creatinine Ratio 8.0 (10-20) Calcium Level 8.5 mg/dl (8.5-10.1)
--- NOTE | 2017-02-23 12:22 | Procedure Note ---
Pre-Mod Sedation Assessment General Date of Moderate Sedation: Feb 23, 2017. Vital Signs: Vital Signs Past 12 Hours Date Time Temp Pulse Resp B/P (MAP) Pulse Ox O2 Delivery O2 Flow Rate FiO2 02/23/17 11:53 36.9 104 18 109/65 (80) 96 02/23/17 10:00 36.8 94 18 101/62 (75) 97 Room Air 02/23/17 08:21 36.9 97 18 121/74 (90) 94 02/23/17 08:00 Room Air 02/23/17 05:55 76 114/72 (86) 02/23/17 04:23 37.2 74 21 105/64 (78) 97 Room Air 02/23/17 04:00 Room Air 02/23/17 01:32 77 131/76 (94) Review Cardiovascular: regular rate, rhythm, + systolic murmur Abdomen: normal bowel sounds, non tender, soft Lungs: lungs clear Pre-Sedation Airway Assessment Oral Cavity: Chipped Teeth, Dental Abnormalities Able to Visualize Vocal Cords: No Short Thick Neck: No Hx of Sleep Apnea: No Smoking Status: Never Smoker Mallampati Classification: Class III ASA Classification: Class IV Procedure Planning Contraindications-for Mod Sed: None Yes Notes The planned sedation has been discussed with the patient and consent obtained. I have identified the patient, determined the appropriateness of sedation and have assessed the patient immediately prior to the procedure. All medicine(s) and interventions are by my order.
[2017-02-23] MEDS: FENTANYL CITRATE INJ 50 MCG/1 ML 2 ML VIAL IV PRN ×2 (12:57→13:11)
--- NOTE | 2017-02-23 13:27 | Procedure Note ---
Post-Mod Sedation Assessment General Date of Moderate Sedation Feb 23, 2017. Vital Signs: Vital Signs Past 12 Hours Date Time Temp Pulse Resp B/P (MAP) Pulse Ox O2 Delivery O2 Flow Rate FiO2 02/23/17 11:53 36.9 104 18 109/65 (80) 96 02/23/17 10:00 36.8 94 18 101/62 (75) 97 Room Air 02/23/17 08:21 36.9 97 18 121/74 (90) 94 02/23/17 08:00 Room Air 02/23/17 05:55 76 114/72 (86) 02/23/17 04:23 37.2 74 21 105/64 (78) 97 Room Air 02/23/17 04:00 Room Air 02/23/17 01:32 77 131/76 (94) Review - Discharge Criteria Vital Signs Stable: Yes Alert/Oriented/Conversant: Yes Returned to Baseline Mental St: Yes Pain/Discomfort/Absent/Minimal: Yes Normal/Baseline Respirations: Yes Active Bleeding?: No Prescriptions Given: None Specific Proced. D/C Criteria Distal Pulses Present (Cardiac: Yes Groin site assessed-Card Cath: Yes Voided Prior To Discharge: N/A Discharged Patients Adult Escort/Transportation: Yes
--- NOTE | 2017-02-23 14:30 | Cardiac Catheterization ---
Procedure Note Procedure Date Feb 23, 2017. Pre-Procedure Diagnosis Non STEMI AUC Score 8 Post-Procedure Diagnosis Severe CAD Procedure(s) Performed Coronary Angiography, Bypass Graft Angiography Mortgage Closing Clerk Teddy Certified Phlebotomist(s) Gregorio Estimated Blood Loss 10 Medication(s) Fentanyl, Heparin, Nitroglycerin, Versed, Lidocaine 1% Summary of Findings Indication: NSTEMI Access: 5Fr Left femoral artery Catheters: JL4, JR4, MARTHA Findings: LM - Severe calcification with diffuse in-stent disease LAD - Severely calcified, occluded ostially Circumflex - Severely calcified, occluded proximally Ramus - Severely calcified, occluded proximally RCA - Severely calcified, non-dominant, occluded proximally with bridging right to right collaterals. HUMPHREYS-LAD - widely patent; 40% in-stent restenosis in distal LAD SVG-LPLB - 80-90% focal thrombotic stenosis in mid graft; retrofills distal circumflex and L-PDA with 50% ostial stenosis. Arterial Closure: Mynx Summary: 1. Severe 3 vessel [place] coronary artery disease - Occluded ostial LAD, proximal circumflex, proximal non-dominant RCA 2. Severe 80-90% mid SVG-LPLB graft stenosis - Patent HUMPHREYS-LAD with mild-moderate distal LAD instent restenosis - Y-graft to raums occluded Recommendations: Focal stenosis in SVG to LPLB appears amenable to PCI but would be high-risk in the setting of patients co-morbidities, and chronic severe CAD/limited coronary reserve In that setting feel patient would be best served by transfer to tertiary center for possible high risk PCI. Discussed with Dr. Banerjee at [facility] where his prior stenting was done and they are to help care for patient. Will arrange for transfer today. Continue current dual-antiplatelet therapy, beta-rubin, nitrates Hemodynamics Rest Ao: -- Final Ao: -- LV: -- Recommendations PCI without planned CABG Specimens None Radiation Exposure (mGy) -- Contrast (mls) -- Drains None Anesthesia Moderate Procedural Complication(s) None Disposition PCU ACC Data Cardiac Status Clinical evaluation leading to the procedure CAD Presntation: Non STEMI Anginal Classification: CCS IV Heart Failure: No, NYHA Class: CCS I Cardiogenic Shock w/in 24Hrs: No Cardiac Arrest w/in 24Hrs: No Imaging studies past 6 months: Yes Stress studies past 6 months: Yes Stress Echocardiogram: Yes - Positive, Risk/Extent of Ischemia (Intermediate) Coronary Anatomy Dominant: Left LAD (% Stenosis): Ostial (Occluded) Circumflex (% Stenosis): Proximal (Occluded) RCA (% Stenosis): Proximal (Occluded) Ramus (% Stenosis): Proximal (Occluded) Diagnostic Physician's Name: Augustin Espinal MD Status: Elective Closure Device Percutaneous Entry Location: Femoral Closure Device: Mynx Recommendations: PCI without planned CABG PCI Indication: PCI for high risk Non-STEMI Intraprocedure Events Significant Dissection: No Perforation: No
--- NOTE | 2017-02-23 14:52 | Discharge Instructions ---
Discharge Instructions Date of Service Feb 23, 2017. Admission Reason for Admission: Nstemi Discharge Discharge Diagnosis / Problem: Severe 3 vessel [place] coronary artery disease Discharge Goals Goal(s): Decrease discomfort, Improve function, Increase independence, Improve disease control, Improve nutritional status, Learn about illness, Diagnostic testing, Therapeutic intervention, Prevent Disease Progression, Specific goals Activity Recommendations Activity Limitations: as noted below (best rest ) . Instructions / Follow-Up Instructions / Follow-Up you have severe CAD with Severe 3 vessel [place] coronary artery disease Dr Espinal rectristan transfer to Dr. Lavonne Patterson 's service in [facility] for further eval and treatment Acute blood loss anemia acute left eye blurry vision, today is a little better you need to have the patient call [facility] Dr. Cottrell 's office for follow up on discharge ([phone]). you have End-stage renal disease on dialysis you need ot follow with grades 9 through 12 teacher - you need to follow up with your primary care physician after discharging from [facility], - you need to follow up with your subspecialistsafter discharging from [facility], Current Hospital Diet Patient's current hospital diet: AHA Diet (Heart Healthy) Discharge Diet Recommended Diet: AHA Diet (Heart Healthy) Procedures Procedures Performed: [facility] Pending Studies Studies pending at discharge: no Laboratory Results Hemoglobin A1c Test 02/20/17 05:59 Range/Units Estimated Average Glucose 111 mg/dl Hemoglobin A1c 5.5 4.5-5.6 % Lipid Panel Test 02/19/17 11:15 Range/Units Triglycerides Level 120 0-150 mg/dl Cholesterol Level 70 0-200 mg/dl HDL Cholesterol 29 mg/dl Cholesterol/HDL Ratio 2.4 LDL Cholesterol, Calculated 17 mg/dl Medical Emergencies . Who to Call and When: Medical Emergencies: If at any time you feel your situation is an emergency, please call 911 immediately. . Non-Emergent Contact Non-Emergency issues call your: Primary Care Provider, See Supervisor . . "Provider Documentation" section prepared by Yonathan Mcknight. . VTE Core Measure Inpt VTE Proph given/why not?: Unfractionated heparin SQ
--- NOTE | 2017-02-23 15:06 | Discharge Summary ---
Discharge Summary Date of Service Feb 23, 2017. Discharge Summary Admission Date: Feb 19, 2017 at 12:10 Discharge Date: Feb 23, 2017 Principal Diagnosis: severe CAD with Severe 3 vessel [place] coronary artery disease Problems/Secondary Diagnoses: Acute blood loss anemia acute left eye blurry vision End-stage renal disease on dialysis Immunizations: Have You Had Influenza Vaccine: No Influenza Vaccine Date: May 03, 2008 History of Tetanus Vaccine?: Unknown Tetanus Immunization Date: Oct 06, 2000 History of Pneumococcal: No Pneumococcal Date: Oct 06, 2005 History of Hepatitis B Vaccine: Unknown Hepatitis Immunization Date: Oct 06, 2000 Procedures: Cardiac cath Consultations: Cardiology, nephrology Discharge Exam See today's progress note, Review of Systems: Constitutional: + problem reported (see today's progress note) Physical Exam: General Appearance: + pertinent finding (see today's progress note) Hospital Course 51M with ESRD on HD, presents with chest pain and elevated troponin with some ST changes, known CAD with SVG and HUMPHREYS Non-ST elevation (NSTEMI) myocardial infarction with chest pain and Elevated troponin with EKG changes history of Coronary artery disease status post coronary artery bypass graft. had LHC per foreign correspondent today, report see below: Summary: 1. Severe 3 vessel [place] coronary artery disease - Occluded ostial LAD, proximal circumflex, proximal non-dominant RCA 2. Severe 80-90% mid SVG-LPLB graft stenosis - Patent HUMPHREYS-LAD with mild-moderate distal LAD instent restenosis - Y-graft to raums occluded Recommendations: Focal stenosis in SVG to LPLB appears amenable to PCI but would be high-risk in the setting of patients co-morbidities, and chronic severe CAD/limited coronary reserve In that setting feel patient would be best served by transfer to tertiary center for possible high risk PCI. Discussed with Dr. Banerjee at [facility] where his prior stenting was done and they are to help care for patient. Will arrange for transfer today. Continue current dual-antiplatelet therapy, beta-rubin, nitrates Discussed with patient and family, discussed the risks and benefits of transferring, consent is signed Acute blood loss anemia with 3 grams of hemoglobin drop secondary to nasal bleed that has been recurrent within the last 2 months, HB stable, transfused 2 u prbc given concern for ACS on 02/21/2017 acute left eye blurry vision, today is a little better head Ct unremarkable ophth eval pt possible glaucoma in the left eye. However, this is a chronic problem and would not explain the sudden vision change . Per ophth: the acute symptoms are of unclear etiology. Possibilities include retinal arteriole occlusion that is too small to see with a bedside exam, dry eye keratopathy, or migraine. so far did not find any acute pathology that requires intervention while in the hospital. [facility] recs follow up as an outpatient for more formal glaucoma testing including intraocular pressure measurement, optic nerve imaging, and automated visual field testing as well as more thorough retinal evaluation. need to have the patient call [facility] Dr. Cottrell 's office for follow up on discharge ([phone]). End-stage renal disease on dialysis. likely also anemia of chronic disease Adrenal suppression with history of chronic prednisone, stress dose steroids, initially low blood pressure on admission. Constipation: Start Colace DVT and GI prophylaxis is covered, social insurance adviser for discharge plan d/w pt and , answered all questions Instructions / Follow-Up you have severe CAD with Severe 3 vessel [place] coronary artery disease Dr Espinal recs transfer to Dr. Lavonne Patterson 's service in [facility] for further eval and treatment Acute blood loss anemia acute left eye blurry vision, today is a little better you need to have the patient call [facility] Dr. Cottrell 's office for follow up on discharge ([phone]). you have End-stage renal disease on dialysis you need ot follow with test center administrator - you need to follow up with your primary care physician after discharging from [facility], - you need to follow up with your subspecialistsafter discharging from [facility], Total Time Spent: Greater than 30 minutes This includes examination of the patient, discharge planning, medication reconciliation, and communication with other providers. Discharge Instructions Please refer to the electronic Patient Visit Report (Discharge Instructions) for additional information. Additional Copies To Todd Azevedo M.D.; Augustin Espinal MD; Amrit Mendosa M.D.
== END 2017-02-23 15:30 | disposition short-term general hospital (02) | DRG 280 ==
LOC: C.EDB 10:47 → C.MSICU 12:10 → ENRESERV 12:23 → C.2T 02-21 20:00
PROVIDERS: ADMIT Internal Medicine; ATTEND Hospitalist
PROC: B2111ZZ Fluoroscopy of Multiple Coronary Arteries using Low Osmolar Contrast (ICD-10-PCS; principal; 2017-02-23 12:20)
PROC: B21F1ZZ Fluoroscopy of Other Bypass Graft using Low Osmolar Contrast (ICD-10-PCS; principal; 2017-02-23 12:20)
PROC: B2181ZZ Fluoroscopy of Left Internal Mammary Bypass Graft using Low Osmolar Contrast (ICD-10-PCS; principal; 2017-02-23 12:20)
DX: I21.4 Non-ST elevation (NSTEMI) myocardial infarction (principal); N18.6 End stage renal disease; I48.92 Unspecified atrial flutter; T82.855A Stenosis of coronary artery stent, initial encounter; I13.2 Hypertensive heart and chronic kidney disease with heart failure and with stage 5 chronic kidney disease, or end stage renal disease; D62 Acute posthemorrhagic anemia; Z94.0 Kidney transplant status; I50.22 Chronic systolic (congestive) heart failure; I25.710 Atherosclerosis of autologous vein coronary artery bypass graft(s) with unstable angina pectoris; I25.110 Atherosclerotic heart disease of native coronary artery with unstable angina pectoris; I25.2 Old myocardial infarction; Z99.2 Dependence on renal dialysis; Z95.1 Presence of aortocoronary bypass graft; I25.5 Ischemic cardiomyopathy; Z79.52 Long term (current) use of systemic steroids; E78.5 Hyperlipidemia, unspecified; I73.9 Peripheral vascular disease, unspecified; Z79.82 Long term (current) use of aspirin; H53.8 Other visual disturbances; K59.00 Constipation, unspecified; R04.0 Epistaxis; Y71.2 Prosthetic and other implants, materials and accessory cardiovascular devices associated with adverse incidents; Y92.009 Unspecified place in unspecified non-institutional (private) residence as the place of occurrence of the external cause

== ENCOUNTER 2017-03-04 17:30 | Inpatient (IN) | payer OTHER ==
[2017-03-04] VITALS (8 sets, daily range): BP systolic 91–141; BP diastolic 55–86; PULSE 67–90; TEMP 36.5–36.9; O2SAT 90–100; Ht 167.6 cm; Wt 65.1 kg
[~2017-03-04] VITALS: Ht 167.6 cm; Wt 65.1 kg
[~2017-03-04 17:30] MED LIST changes: +BCTROWC NAE
[2017-03-04] MEDS ORDERED: SODIUM CHLORIDE 0.9% 1000ML 1,000 ML IV STA (17:40)
[2017-03-04] MEDS ORDERED: ISOS30TA35 PO (17:45)
[2017-03-04] MEDS ORDERED: ONDANSETRON INJ 2 MG/ML 2 ML VIAL IV STA (17:59)
[2017-03-04] MEDS: HYDROmorphone INJ 0.5 MG/0.5 ML SYR IV PRN ×2 (18:10→19:01)
[2017-03-04 18:14] LABS: BASO % 0.3 %; BASO ABS # 0.04 K/uL (0-0.2); EOS % 4.1 %; HEMATOCRIT 26.2 % (42-52); LYMPH % 22.6 %; LYMPH ABS # 3.34 K/uL (1.2-3.4); MEAN CELL VOLUME 103.1 fL (80-100); MEAN CORPUSCULAR HEMOGLOBIN 32.7 pg (25-34); MEAN CORPUSCULAR HGB CONC 31.7 g/dl (32-36); MEAN PLATELET VOLUME 10.7 fL (7.4-10.4); MONO % 11.2 %; NEUT % 60.8 %; PLATELET COUNT 366 K/uL (130-400); RED BLOOD COUNT 2.54 M/uL (4.7-6.1); WHITE BLOOD COUNT 14.79 K/uL (4.8-10.8)
[2017-03-04 18:17] LABS: INR 1.2 (0.9-1.1); PARTIAL THROMBOPLASTIN RATIO 1.3; PROTHROMBIN TIME (PATIENT) 12.6 SECONDS (9.0-12.0)
--- NOTE | 2017-03-04 18:45 | DIAGNOSTIC IMAGING REPORT ---
ABD/PELVIS NO IV OR ORAL CONT CT DOSE: 323.50 mGy.cm HISTORY: Pain. Bleeding. dialysis pt. Gi bleed, lower abd pain. TECHNIQUE: Multiaxial CT images of the abdomen and pelvis were performed without contrast. A dose lowering technique was utilized adhering to the principles of ALARA. COMPARISON STUDY: 08/13/2016 FINDINGS: Lung bases are clear. Pleural thickening right base medially anterior to right paravertebral location. Calcification of the myocardium and associated cardiac vasculature. This is similar as compared to the prior study. Cirrhotic liver. Calcification of the liver capsule unchanged. Cirrhotic appearing liver area Right lateral abdominal hernia containing loops of bowel unchanged from the prior study. This appears to be a nonobstructive finding, and is most likely a lateral hernia.. 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 Extensive atherosclerotic change of the abdominal and pelvic arterial vasculature. Bowel pattern overall is nonobstructive. Adenopathy including a calcified right lower quadrant density is unchanged. No evidence for ascites. Anasarca produces described is not identified. IMPRESSION: 1. Extensive changes throughout the abdomen and pelvis described above, all of which appear chronic.. 2. Stable abdominal and pelvic adenopathy. 3. Stable cirrhotic appearance to the liver. 4. Stable lateral abdominal hernia with contained bowel loops. This is nonobstructive. 5. No significant interval change compared to the prior study. 6. Mild nonobstructive ileus. The above report was generated using voice recognition software. It may contain grammatical, syntax or spelling errors. Electronically signed by: Sebastian Vidal M.D. 03/04/2017 6:43 PM Dictated Date/Time: 03/04/2017 6:34 PM
[2017-03-04] MEDS ORDERED: RANITIDINE HCL 50 MG/100 ML D5W IV STA (18:50)
[2017-03-04 18:54] LABS: ANISOCYTOSIS PRESENT; COMPLETE YES; HOWELL-JOLLY BODIES 1+; POLYCHROMASIA 1+
[2017-03-04 19:08] LABS: ALKALINE PHOSPHATASE 313 U/L (45-117); ALT/SGPT 258 U/L (12-78); AST/SGOT 46 U/L (15-37); BLOOD UREA NITROGEN 32 mg/dl (7-18); BUN/CREATININE RATIO 5.6 (10-20); CALCIUM 7.8 mg/dl (8.5-10.1); CARBON DIOXIDE 33 mmol/L (21-32); CHLORIDE 100 mmol/L (98-107); CKMB/CK RATIO 2.1 (0-3.0); GLUCOSE 130 mg/dl (70-99); POTASSIUM 4.4 mmol/L (3.5-5.1); SODIUM 141 mmol/L (136-145)
[2017-03-04] MEDS ORDERED: POLYETHYLENE (MIRALAX) 17 GM PACK PO PRN (19:30)
--- NOTE | 2017-03-04 19:39 | History and Physical ---
History & Physical Date & Time of Service: Mar 04, 2017 at 19:31 Chief Complaint: Gi Bleed Primary Care Physician: Todd Azevedo M.D. History of Present Illness Source: patient, spouse Mr Segura is a 51 yo M, dialysis (//Wed) patient, with recent cardiac stent placed at [facility] about a week ago. He has been on Aspirin for over a year and has been on Plavix since 2005. He presents with an episode of rectal bleeding earlier today. He reported he noticed bright red blood all over the toilet, and developed some abdominal pain as well. This has resolved w/ dilaudid. Upon arrival to the ED, he did have an episode of bright red blood in his stool. He has not been to the bathroom since so does not know if he is still bleeding. He has never had this occur before. He reports his diet is not that great as he is usually very tired from dialysis. He reports he does strain on the toilet. Past Medical/Surgical History Medical Problems: (1) Acute respiratory failure Status: Resolved (2) CAD (coronary artery disease) Status: Chronic (3) Chronic systolic CHF (congestive heart failure) Status: Chronic (4) End-stage renal disease on hemodialysis Status: Chronic (5) HTN (hypertension) Status: Chronic (6) Liver cirrhosis Status: Chronic (7) [place] (myocardial infarction) Status: Chronic (8) Syncope Status: Resolved Surgical Problems: (1) History of renal transplant Status: Chronic (2) Hx of CABG Status: Resolved Family History FH: heart disease Social History Smoking Status: Never Smoker Smokeless Tobacco Use: No Alcohol Use: socially Drug Use: none Marital Status: Housing status: lives with family Occupational Status: employed, disabled Immunizations History of Influenza Vaccine: No Influenza Vaccine Date: May 03, 2008 History of Tetanus Vaccine?: Unknown Tetanus Immunization Date: Oct 06, 2000 History of Pneumococcal: No Pneumococcal Date: Oct 06, 2005 History of Hepatitis B Vaccine: Unknown Hepatitis Immunization Date: Oct 06, 2000 Multi-Drug Resistant Organisms History of MDRO: No Allergies Coded Allergies: POLLEN (Verified Allergy, Unknown, "HAYFEVER", 02/19/17) Diazoxide (Verified Adverse Reaction, Intermediate, ELEVATE BP;N&V, ) NSAIDs (Verified Adverse Reaction, Unknown, KIDNEY TRANSPLANT, 02/19/17) Home Medications Scheduled Aspirin (Aspirin Ec), 81 MG PO DAILY Atorvastatin (Atorvastatin Calcium), 20 MG PO HS Cinacalcet Hydrochloride (Sensipar), 30 MG PO QAM Clopidogrel Bisulfate (Clopidogrel), 75 MG PO DAILY Isosorbide Mononitrate Ext Rel (Imdur Ext Rel), 15 MG PO BID Metoprolol Succinate (Metoprolol Succinate ER), 50 MG PO BID Mupirocin (Bactroban 2% Oint), 1 APPLN JENN BID Nitroglycerin (Nitrostat), 0.4 MG UT PRN Pantoprazole (Pantoprazole Sodium), 40 MG PO DAILY Prednisone (Prednisone), 5 MG PO DAILY Sevelamer Carbonate (Renvela), 1,600 MG PO TIDM Vitamin B Cmplx/Vitc/Folic Ac (Nephrocaps), 1 CAP PO DAILY Vitamin E (Vitamin E), 400 UNIT PO DAILY Scheduled PRN Oxycodone Ir (Roxicodone Ir), 5 MG PO Q4H PRN for Severe Pain Review of Systems See HPI for pertinent positives & negatives. A total of 10 systems reviewed and were otherwise negative. Physical Exam Vital Signs Date Time Temp Pulse Resp B/P (MAP) Pulse Ox O2 Delivery O2 Flow Rate FiO2 03/04/17 19:11 84 03/04/17 19:06 85 18 119/65 98 Room Air 03/04/17 18:16 98 Room Air 03/04/17 17:33 36.7 92 16 119/74 100 Room Air General Appearance: WD/WN, no apparent distress, + thin Head: normocephalic, atraumatic Eyes: normal inspection, PERRL ENT: hearing grossly normal Neck: supple, no JVD Respiratory/Chest: lungs clear, normal breath sounds, no respiratory distress Cardiovascular: regular rate, rhythm, + systolic murmur Abdomen/GI: normal bowel sounds, non tender, soft Back: no CVA tenderness, no muscle spasm Extremities/Musculoskelatal: no calf tenderness, no pedal edema Neurologic/Psych: no motor/sensory deficits, alert, normal mood/affect Skin: no rash Diagnostics Laboratory Results Results Past 24 Hours Test 03/04/17 17:51 Range/Units White Blood Count 14.79 4.8-10.8 K/uL Red Blood Count 2.54 4.7-6.1 M/uL Hemoglobin 8.3 14.0-18.0 g/dL Hematocrit 26.2 42-52 % Mean Corpuscular Volume 103.1 80-100 fL Mean Corpuscular Hemoglobin 32.7 25-34 pg Mean Corpuscular Hemoglobin Concent 31.7 32-36 g/dl Platelet Count 366 130-400 K/uL Mean Platelet Volume 10.7 7.4-10.4 fL Neutrophils (%) (Auto) 60.8 % Lymphocytes (%) (Auto) 22.6 % Monocytes (%) (Auto) 11.2 % Eosinophils (%) (Auto) 4.1 % Basophils (%) (Auto) 0.3 % Neutrophils # (Auto) 9.01 1.4-6.5 K/uL Lymphocytes # (Auto) 3.34 1.2-3.4 K/uL Monocytes # (Auto) 1.65 0.11-0.59 K/uL Eosinophils # (Auto) 0.60 0-0.5 K/uL Basophils # (Auto) 0.04 0-0.2 K/uL RDW Standard Deviation 65.9 36.4-46.3 fL RDW Coefficient of Variation 18.4 11.5-14.5 % Immature Granulocyte % (Auto) 1.0 % Immature Granulocyte # (Auto) 0.15 0.00-0.02 K/uL Nucleated RBC Absolute Count (auto) 0.46 0-0 K/uL Nucleated Red Blood Cells % 3.1 % Polychromasia 1+ Basophilic Stippling 1+ Anisocytosis PRESENT Macrocytosis PRESENT Carter-Weaver Bodies 1+ Prothrombin Time 12.6 9.0-12.0 SECONDS Prothromb Time International Ratio 1.2 0.9-1.1 Activated Partial Thromboplast Time 34.5 21.0-31.0 SECONDS Partial Thromboplastin Ratio 1.3 Sodium Level 141 136-145 mmol/L Potassium Level 4.4 3.5-5.1 mmol/L Chloride Level 100 98-107 mmol/L Carbon Dioxide Level 33 21-32 mmol/L Anion Gap 8.0 3-11 mmol/L Blood Urea Nitrogen 32 7-18 mg/dl Creatinine 5.80 0.60-1.40 mg/dl Est Creatinine Clear Calc Drug Dose 13.6 ml/min Estimated GFR () 12.1 Estimated GFR (Non- 10.4 BUN/Creatinine Ratio 5.6 10-20 Random Glucose 130 70-99 mg/dl Calcium Level 7.8 8.5-10.1 mg/dl Total Bilirubin 0.9 0.2-1 mg/dl Direct Bilirubin 0-0.2 mg/dl Aspartate Amino Transf (AST/SGOT) 46 15-37 U/L Alanine Aminotransferase (ALT/SGPT) 258 12-78 U/L Alkaline Phosphatase 313 45-117 U/L Total Creatine Kinase 56 39-308 U/L Creatine Kinase MB 1.2 0.5-3.6 ng/ml Creatine Kinase MB Ratio 2.1 0-3.0 Troponin I 0.187 0-0.045 ng/ml Total Protein 6.7 6.4-8.2 gm/dl Albumin 2.4 3.4-5.0 gm/dl Lipase 175 73-393 U/L Chemistry Specimen Hemolysis Diagnostic Radiology CT A/P IMPRESSION: 1. Extensive changes throughout the abdomen and pelvis described above, all of which appear chronic.. 2. Stable abdominal and pelvic adenopathy. 3. Stable cirrhotic appearance to the liver. 4. Stable lateral abdominal hernia with contained bowel loops. This is nonobstructive. 5. No significant interval change compared to the prior study. 6. Mild nonobstructive ileus. EKG Normal sinus rhythm Right bundle branch block Anterior infarct , age undetermined Abnormal ECG When compared with ECG of 23-FEB-2017 09:19, Right bundle branch block is now Present Anterior infarct is now Present Impression Assessment and Plan 51 yo M with CKD stage V on dialysis, and CAD, with recent stent placement on Plavix, who presents w/rectal bleeding. 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 He also had dark red stool now, concerning for upper GI bleed. Started on Protonix drip. Transfused 2nd unit of blood and was given 250mL fluid bolus over an hour. Attending Addendum: I have physically seen and examined this patient, have supervised the medical residents activities, and agree with the H&P as noted above with the following exceptions as noted. The patient denies chest pain, palpitations, shortness of breath, cough, lower extremity swelling, vision change, hearing change, sore throat, fevers, chills, sweats, weight change, fatigue, nausea, vomiting, abdominal pain, pelvic pain, blood in urine, dysuria, urinary frequency or urgency, lightheadedness, dizziness, headache, memory loss, rash, abnormal bruising, imbalance, focal or generalized weakness, numbness or tingling in arms or legs, generalized arthralgias or myalgias, back or neck pain, night sweats, or allergy symptoms. The review of systems is otherwise negative other than for that already noted above, and at least 10 systems have been reviewed. The patient is awake, well-developed and adequately nourished, alert and oriented 3, normocephalic and atraumatic, lying in bed and in no acute distress. HEENT--PERRL, EOMI, mucous membranes and oropharynx dry. Neck--supple, no JVD or bruits, thyroid normal, trachea midline, no adenopathy. Heart--normal S1 and S2, no extra beats, no murmurs, rubs or gallops. Lungs--clear bilaterally with good air movement, no respiratory distress, no accessory muscle use. Abdomen--normal bowel sounds and soft, nontender and nondistended, no hernias or masses, no organomegaly. Extremities--no cyanosis, clubbing or edema. There are good distal pulses b/l. Dermatologic--normal skin turgor, normal color, warm and dry, no abnormal lymph nodes, no rash. Neurologic--cranial nerves II through XII grossly intact, motor and sensory examination normal. Rheumatologic--normal range of motion, nontender, muscles and joints. Psychiatric--normal affect. Assessment and Plan: 1. Upper GI/lower GI bleeding--the patient had initially presented to the emergency department with bright red blood per rectum, however, shortly after admission he developed more darkened red/maroon stool, suggesting the possibility of multiple sources of bleeding. He is transfused 2 units of packed red blood cells tonight and given a total of 500 mils of IV fluids to help maintain his systolic blood pressure in the 90s. Patient is admitted with nothing by mouth except essential medications status. Protonix bolus followed by drip. H&H's every 6 hours for the next 48 hours. Normal saline at 50 ML's per hour. Consult gastroenterology. 2. CAD/hypertension/history of [place]/chronic systolic CHF/recent stent placed at [facility] one week ago, with current use of aspirin and Plavix which she' s been on for one year, and 11 years respectively. For now, hold aspirin and Plavix. Consult tobacco sorter Dr. Espinal had seen him generalized admission. Hold Imdur extended release 15 mg by mouth twice a day, metoprolol succinate ER 50 mg by mouth twice a day due to GI bleeding and low blood pressure. 3. End-stage renal disease on hemodialysis--consult nephrology coverage for Dr. Azevedo. Usual dialysis days are Wednesday, Wednesday and Wednesday. Hold Sensipar, Renvela, Nephrocaps and vitamin E. 4. Hyperlipidemia for now hold atorvastatin 20 mg by mouth at bedtime. 5. Chronic prednisone use--hold 5 mg by mouth daily. If shows signs of adrenal insufficiency, place on stress dose hydrocortisone 100 mg IV every 8 hours. Level of Care Telemetry Advanced Directives Existing Advance Directive: No Existing Living Will: No Existing Power of Email Specialist: No Resuscitation Status FULL RESUSCITATION VTE Prophylaxis VTE Risk Assessment Done? Y/N: Yes Risk Level: Moderate Given or contraindicated: SCD's, Contraindicated (no antiplatelet or anticoagulation due to GI bleed.) Resident Tracking Resident Involvement: Resident Care Provided Care Provided: Adult Hospital Medicine
[2017-03-04] MEDS ORDERED: OXYCODONE HCL IR 5 MG TAB (IMMEDIATE RELEASE) PO PRN (19:45)
[2017-03-04] MEDS ORDERED: NITROGLYCERIN 0.4 MG SL PER TAB CHARGE UT SCH (19:45)
[2017-03-04] MEDS ORDERED: IV FLUIDS COMPLETED PRN (20:00)
[2017-03-04] MEDS ORDERED: ISOSORBIDE MONONITRATE 30 MG TABCR PO SCH (21:00)
[2017-03-04] MEDS ORDERED: METOPROLOL SUCC 50MG EXT REL TAB PO SCH (21:00)
[2017-03-04] MEDS ORDERED: BACITRACIN OINT 15 GM TUBE TOP SCH (21:00)
[2017-03-04] MEDS ORDERED: ATORVASTATIN 20 MG TAB PO SCH (21:00)
[2017-03-04] MEDS: SODIUM CHLORIDE 0.9% 1000ML 1,000 ML IV SCH (22:37)
[2017-03-04] MEDS ORDERED: HYDROmorphone INJ 0.5 MG/0.5 ML SYR ONE (22:47)
[2017-03-04 23:27] LABS: HEMATOCRIT 23.1 % (42-52)
[2017-03-05] VITALS (45 sets, daily range): BP systolic 74–156; BP diastolic 38–83; PULSE 70–105; TEMP 36.5–37.9; O2SAT 94–100
[2017-03-05] MEDS: ONDANSETRON INJ 2 MG/ML 2 ML VIAL IV PRN ×2 (00:02→06:13)
[2017-03-05] MEDS ORDERED: SODIUM CHLORIDE 0.9% 250ML 250 ML IV STA (00:42)
[2017-03-05] MEDS ORDERED: NURSING VERBAL MED ORDER ONE ×2 (00:45→19:15)
--- NOTE | 2017-03-05 01:29 | EMERGENCY ROOM VISIT NOTE ---
History Report prepared by Craig: Tamanna Matthews Under the Supervision of: Dr. Vinayak Crafword M.D. First contact with patient: 17:40 Chief Complaint: RECTAL BLEEDING Stated Complaint: GI BLEED History of Present Illness The patient is a 51 year old male who presents to the Emergency Room with complaints of worsening rectal bleeding starting two and a half hours ago. The patient states that he has never had this before. He states that he has been to the bathroom 3-4 times since it started and each time has hematochezia. The patient complains of abdominal pain and nausea. He currently rates his pain as a 7/10 in severity. The patient notes he is on a blood thinner and that he has had a recent blood transfusion. The patient states that the blood transfusion was for chest pain that was treated with Heparin, but caused his nosebleed to worsen. He states that his Hemoglobin was already low and dropped more. The patient notes that he was given 2 units of blood. He states that at the same time he was taken to [place] for a heart catheterization and stent placement. The patient notes that he is on dialysis again following a failed kidney transplant. He states that his last round of dialysis was yesterday and it was normal. The patient denies chest pain, shortness of breath, back pain, loss of consciousness, and a headache. Source of History: patient Onset: two and a half hours ago Position: other (global) Symptom Intensity: 7/10 Quality: other (global) Timing: worsening Associated Symptoms: + nausea, + abdominal pain, No LOC, No headache, No chest pain, No SOB, No back pain Review of Systems See HPI for pertinent positives and negatives. A total of ten systems were reviewed and were otherwise negative. Past Medical & Surgical Medical Problems: (1) Abdominal pain (2) Acute H. pylori gastric ulcer (3) Acute respiratory failure (4) Anemia (5) Atrial flutter (6) Bacteremia (7) C. difficile colitis (8) CAD (coronary artery disease) (9) Chronic systolic CHF (congestive heart failure) (10) End-stage renal disease on hemodialysis (11) ESRD (end stage renal disease) on dialysis (12) Fever (13) Gastric mass (14) H. pylori infection (15) HTN (hypertension) (16) hx stent placement (17) Immunosuppression (18) Intractable abdominal pain (19) Leukocytosis (20) Liver cirrhosis (21) Lower GI bleed (22) AK (myocardial infarction) (23) NSTEMI (non-ST elevated myocardial infarction) (24) Postoperative wound infection (25) Secondary hyperparathyroidism of renal origin (26) SIRS (systemic inflammatory response syndrome) (27) Syncope Surgical Problems: (1) History of renal transplant (2) History of renal transplant (3) Hx of CABG (4) Hx of cardiac catheterization Family History FH: heart disease Social History Smoking Status: Never Smoker Alcohol Use: none Drug Use: none Marital Status: Housing Status: lives with significant other Occupation Status: employed, disabled Current/Historical Medications Scheduled Aspirin (Aspirin Ec), 81 MG PO DAILY Atorvastatin (Atorvastatin Calcium), 20 MG PO HS Cinacalcet Hydrochloride (Sensipar), 30 MG PO QAM Clopidogrel Bisulfate (Clopidogrel), 75 MG PO DAILY Isosorbide Mononitrate Ext Rel (Imdur Ext Rel), 15 MG PO BID Metoprolol Succinate (Metoprolol Succinate ER), 50 MG PO BID Mupirocin (Bactroban 2% Oint), 1 APPLN JENN BID Nitroglycerin (Nitrostat), 0.4 MG UT PRN Pantoprazole (Pantoprazole Sodium), 40 MG PO DAILY Prednisone (Prednisone), 5 MG PO DAILY Sevelamer Carbonate (Renvela), 1,600 MG PO TIDM Vitamin B Cmplx/Vitc/Folic Ac (Nephrocaps), 1 CAP PO DAILY Vitamin E (Vitamin E), 400 UNIT PO DAILY Scheduled PRN Oxycodone Ir (Roxicodone Ir), 5 MG PO Q4H PRN for Severe Pain Allergies Coded Allergies: POLLEN (Verified Allergy, Unknown, "HAYFEVER", 02/19/17) Diazoxide (Verified Adverse Reaction, Intermediate, ELEVATE BP;N&V, ) NSAIDs (Verified Adverse Reaction, Unknown, KIDNEY TRANSPLANT, 02/19/17) Physical Exam Vital Signs Date Time Temp Pulse Resp B/P (MAP) Pulse Ox O2 Delivery O2 Flow Rate FiO2 03/04/17 19:11 84 03/04/17 19:06 85 18 119/65 98 Room Air 03/04/17 18:16 98 Room Air 03/04/17 17:33 36.7 92 16 119/74 100 Room Air Physical Exam GENERAL: Awake, alert, uncomfortable-appearing, in no distress HENT: Normocephalic, atraumatic. Oropharynx unremarkable. EYES: Normal conjunctiva. Sclera non-icteric. NECK: Supple. No nuchal rigidity. FROM. No JVD. RESPIRATORY: Clear to auscultation. CARDIAC: Regular rate, normal rhythm. Extremities warm and well perfused. Pulses equal. ABDOMEN: Soft, non-distended. Mild bilateral lower quadrant tenderness to palpation, slightly worse on the right. No rebound or guarding. No masses. RECTAL: Deferred. MUSCULOSKELETAL: Chest examination reveals no tenderness. The back is symmetrical on inspection without obvious abnormality. There is no CVA tenderness to palpation. No joint edema. Fistula on LUE. LOWER EXTREMITIES: Calves are equal size bilaterally and non-tender. No edema. No discoloration. NEURO: Normal sensorium. No sensory or motor deficits noted. SKIN: No rash or jaundice noted. Medical Decision & Procedures ER Provider Diagnostic Interpretation: Radiology results as stated below per my review and radiologist interpretation: ABD/PELVIS NO IV OR ORAL CONT CT DOSE: 323.50 mGy.cm HISTORY: Pain. Bleeding. dialysis pt. Gi bleed, lower abd pain. TECHNIQUE: Multiaxial CT images of the abdomen and pelvis were performed without contrast. A dose lowering technique was utilized adhering to the principles of ALARA. COMPARISON STUDY: 08/13/2016 FINDINGS: Lung bases are clear. Pleural thickening right base medially anterior to right paravertebral location. Calcification of the myocardium and associated cardiac vasculature. This is similar as compared to the prior study. Cirrhotic liver. Calcification of the liver capsule unchanged. Cirrhotic appearing liver area Right lateral abdominal hernia containing loops of bowel unchanged from the prior study. This appears to be a nonobstructive finding, and is most likely a lateral hernia.. 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 Extensive atherosclerotic change of the abdominal and pelvic arterial vasculature. Bowel pattern overall is nonobstructive. Adenopathy including a calcified right lower quadrant density is unchanged. No evidence for ascites. Anasarca produces described is not identified. IMPRESSION: 1. Extensive changes throughout the abdomen and pelvis described above, all of which appear chronic.. 2. Stable abdominal and pelvic adenopathy. 3. Stable cirrhotic appearance to the liver. 4. Stable lateral abdominal hernia with contained bowel loops. This is nonobstructive. 5. No significant interval change compared to the prior study. 6. Mild nonobstructive ileus. The above report was generated using voice recognition software. It may contain grammatical, syntax or spelling errors. Electronically signed by: Sebastian Vidal M.D. 03/04/2017 6:43 PM Dictated Date/Time: 03/04/2017 6:34 PM Laboratory Results 03/04/17 17:51 Red Blood Count 2.54, Mean Corpuscular Volume 103.1, Mean Corpuscular Hemoglobin 32.7, Mean Corpuscular Hemoglobin Concent 31.7, Mean Platelet Volume 10.7, Neutrophils (%) (Auto) 60.8, Lymphocytes (%) (Auto) 22.6, Monocytes (%) ( Auto) 11.2, Eosinophils (%) (Auto) 4.1, Basophils (%) (Auto) 0.3, Neutrophils # (Auto) 9.01, Lymphocytes # (Auto) 3.34, Monocytes # (Auto) 1.65, Eosinophils # ( Auto) 0.60, Basophils # (Auto) 0.04 03/04/17 17:51 Test 03/04/17 17:51 White Blood Count 14.79 K/uL (4.8-10.8) Red Blood Count 2.54 M/uL (4.7-6.1) Hemoglobin 8.3 g/dL (14.0-18.0) Hematocrit 26.2 % (42-52) Mean Corpuscular Volume 103.1 fL (80-100) Mean Corpuscular Hemoglobin 32.7 pg (25-34) Mean Corpuscular Hemoglobin Concent 31.7 g/dl (32-36) Platelet Count 366 K/uL (130-400) Mean Platelet Volume 10.7 fL (7.4-10.4) Neutrophils (%) (Auto) 60.8 % Lymphocytes (%) (Auto) 22.6 % Monocytes (%) (Auto) 11.2 % Eosinophils (%) (Auto) 4.1 % Basophils (%) (Auto) 0.3 % Neutrophils # (Auto) 9.01 K/uL (1.4-6.5) Lymphocytes # (Auto) 3.34 K/uL (1.2-3.4) Monocytes # (Auto) 1.65 K/uL (0.11-0.59) Eosinophils # (Auto) 0.60 K/uL (0-0.5) Basophils # (Auto) 0.04 K/uL (0-0.2) RDW Standard Deviation 65.9 fL (36.4-46.3) RDW Coefficient of Variation 18.4 % (11.5-14.5) Immature Granulocyte % (Auto) 1.0 % Immature Granulocyte # (Auto) 0.15 K/uL (0.00-0.02) Nucleated RBC Absolute Count (auto) 0.46 K/uL (0-0) Nucleated Red Blood Cells % 3.1 % Polychromasia 1+ Basophilic Stippling 1+ Anisocytosis PRESENT Macrocytosis PRESENT Carter-[place] Bodies 1+ Prothrombin Time 12.6 SECONDS (9.0-12.0) Prothromb Time International Ratio 1.2 (0.9-1.1) Activated Partial Thromboplast Time 34.5 SECONDS (21.0-31.0) Partial Thromboplastin Ratio 1.3 Anion Gap 8.0 mmol/L (3-11) Est Creatinine Clear Calc Drug Dose 13.6 ml/min Estimated GFR () 12.1 Estimated GFR (Non- 10.4 BUN/Creatinine Ratio 5.6 (10-20) Calcium Level 7.8 mg/dl (8.5-10.1) Total Bilirubin 0.9 mg/dl (0.2-1) Direct Bilirubin mg/dl (0-0.2) Aspartate Amino Transf (AST/SGOT) 46 U/L (15-37) Alanine Aminotransferase (ALT/SGPT) 258 U/L (12-78) Alkaline Phosphatase 313 U/L (45-117) Total Creatine Kinase 56 U/L (39-308) Creatine Kinase MB 1.2 ng/ml (0.5-3.6) Creatine Kinase MB Ratio 2.1 (0-3.0) Troponin I 0.187 ng/ml (0-0.045) Total Protein 6.7 gm/dl (6.4-8.2) Albumin 2.4 gm/dl (3.4-5.0) Lipase 175 U/L (73-393) Chemistry Specimen Hemolysis Laboratory results reviewed by me Medications Administered Medications (Trade) Dose Ordered Sig/Amanda Route Start Time Stop Time Status Last Admin Dose Admin Sodium Chloride 1,000 ml @ 125 mls/hr Q8H STAT IV 03/04/17 17:40 03/04/17 21:05 DC 03/04/17 18:10 125 MLS/HR Hydromorphone HCl (Dilaudid Inj) 0.5 mg Q15M PRN IV 03/04/17 18:00 03/04/17 21:05 DC 03/04/17 19:01 0.5 MG Ondansetron HCl (Zofran Inj) 4 mg NOW STAT IV 03/04/17 17:59 03/04/17 18:01 DC 03/04/17 18:09 4 MG Ranitidine HCl (zANTac IV) 50 mg NOW STAT IV 03/04/17 18:50 03/04/17 18:52 DC 03/04/17 19:00 50 MG ECG Indication: abdominal pain Rate (beats per minute): 87 Rhythm: normal sinus Findings: Q waves (Anterior), RBBB, T-wave inversion (Anterolateral) Comparison ECG Date: 02/23/2017 Change: T wave inversion anteriorly and inferiorly are old. ED Course 1740: Ordered NSS 1000 ml @ 125 mls/hr IV. 1756: The patient was evaluated in room A12B. A complete history and physical exam was performed. 1759: Ordered Zofran Inj 4 mg IV. 1800: Ordered Dilaudid Inj 0.5 mg PRN IV pain. 1848: I reevaluated the patient and he is doing okay. 1850: Ordered Ranitidine HCl 50 mg IV. 1902: Discussed the patient's case with Dr. Madsen. The patient will be evaluated for further treatment and disposition. Medical Decision Triage Nursing notes reviewed. The patient's presentation and history were concerning for abdominal pain and rectal bleeding. Etiologies such as diverticulosis, AVM, coagulopathy, colitis, inflammatory bowel disease, malignancy,Ivonne-Marie tear, esophagitis, peptic ulcer disease , variceal bleed, gastritis, epistaxis, fissure, hemorrhoids, as well as others were entertained. Patient was evaluated. He was gently hydrated. Blood was obtained. CT ordered. He was treated with Dilaudid and Zofran. He felt better with this. The patient underwent CT imaging which did not reveal any acute findings. His CBC showed significant anemia. Chemistry panel was unremarkable except for his elevated creatinine. Troponin was elevated. The patient had a type and cross performed. He consented to transfusion. The patient had packed red blood cell transfusion initiated. He will need further evaluation and management in the hospital due to his anemia and active GI bleed. He was also given Zantac. I consulted with the hospitalist service. The patient was evaluated for further management. Medication Reconcilliation Current Medication List: was personally reviewed by me Blood Pressure Screening Patient's blood pressure: Normal blood pressure Blood pressure disposition: Did not require urgent referral Consults Time Called: 1899 Consulting Physician: Dr. Madsen Returned Call: 1901 Discussed the patient's case with Dr. Madsen. The patient will be evaluated for further treatment and disposition. Impression Primary Impression: GI bleed Additional Impressions: Severe anemia Elevated troponin Scribe Attestation The scribe's documentation has been prepared under my direction and personally reviewed by me in its entirety. I confirm that the note above accurately reflects all work, treatment, procedures, and medical decision making performed by me. Departure Information Dispostion Being Evaluated By Hospitalist Referrals No Doctor, Assigned (PCP) Patient Instructions My [facility] Problem Qualifiers
[2017-03-05] MEDS ORDERED: FAMOTIDINE IV INJ 20 MG in DEXTROSE 5% 100ML 100 ML IV SCH (02:00)
[2017-03-05] MEDS ORDERED: PANTOprazole INJ 80 MG in DEXTROSE 5% 100ML IV STA (02:00)
[2017-03-05] MEDS ORDERED: PROMETHAZINE HCL INJ 12.5 MG in SODIUM CHLORIDE 0.9% 50ML 50 ML IV PRN (02:00)
[2017-03-05] MEDS: PANTOprazole INJ 40 MG in DEXTROSE 5% 100ML IV SCH ×4 (02:39→17:51)
[2017-03-05] MEDS: HYDROmorphone INJ 0.5 MG/0.5 ML SYR IV PRN ×3 (03:01→19:52)
[2017-03-05 05:05] LABS: HEMATOCRIT 23.9 % (42-52)
[2017-03-05] MEDS ORDERED: OCTREOTIDE IV BOLUS & DRIP IV STA (05:19)
[2017-03-05] MEDS ORDERED: OCTREOTIDE ACETATE INJ 100 MCG in SYRINGE 9 ML IV STA (05:24)
--- NOTE | 2017-03-05 05:24 | Progress Note ---
Progress Note Date of Service Mar 05, 2017. Progress Note Update 5AM: Overnight pt had persistent lower GI bleeding, then had darker stool concerning for upper GI bleed H/H remained around 7.5-7.6 He was transfused a 2nd unit, and 2 further units were cross matched Troponins and EKG repeated Octreotide drip started w/bolus Pt transferred to ICU
[2017-03-05] MEDS: OCTREOTIDE ACETATE INJ 500 MCG in NSS 100ML IV SCH ×2 (05:55→15:42)
[2017-03-05] MEDS ORDERED: SEVELAMER HYDROCH 800 MG TAB PO SCH (07:15)
--- NOTE | 2017-03-05 08:18 | Critical Care Consultation ---
Critical Care Consultation Date of Consultation: Mar 05, 2017. Attending Physician: Mac Madsen M.D. Reason for Consultation: Gi Bleed History of Present Illness This is a 51 yo M with hx of CAD s/p CABG (10+yrs ago), s/p Stenting 1 wk [employer] (on ASA, Plavix at home) , ESRD on Hemodialysis following multiple failed renal transplants , Liver cirrhosis. HTN presenting with bright red blood per rectum which started 2 hrs prior to arrival in addition to diffuse abdominal pain. He also reported Nausea. He denied CP, SOB, palpitation. Patient has no previous gastrointestinal hx. Patient was given IV fluids and 1 unit of PRBC in ED and given ranitidine. Patient arrived initially normotensive with Hb of 8.3 , INR 1.22, PTT 34.5 PT 12.6. Troponin of .187 Cr 5.8 (baseline 4-8) CT abdomen showed no acute changes. Upon admission, patient developed hypotension, Hb dropped 7.6 and he was given 1 additional unit of PRBC's. Patient was admitted to ICU overnight. Gastroenterology, Nephrology, and Cardiology were consulted. 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) sysCHF ESRD, on HD HTN Liver Cirrhosis SurgHX Renal Transplant CABG Family History FH: heart disease Heart disease Social History Smoking Status: Never Smoker Smokeless Tobacco Use: No Alcohol Use: socially Drug Use: none Marital Status: Housing Status: lives with significant other Occupation Status: employed, disabled Allergies Coded Allergies: POLLEN (Verified Allergy, Unknown, "HAYFEVER", 02/19/17) Diazoxide (Verified Adverse Reaction, Intermediate, ELEVATE BP;N&V, ) NSAIDs (Verified Adverse Reaction, Unknown, KIDNEY TRANSPLANT, 02/19/17) Home Medications Scheduled Aspirin (Aspirin Ec), 81 MG PO DAILY Atorvastatin (Atorvastatin Calcium), 20 MG PO HS Cinacalcet Hydrochloride (Sensipar), 30 MG PO QAM Clopidogrel Bisulfate (Clopidogrel), 75 MG PO DAILY Isosorbide Mononitrate Ext Rel (Imdur Ext Rel), 15 MG PO BID Metoprolol Succinate (Metoprolol Succinate ER), 50 MG PO BID Mupirocin (Bactroban 2% Oint), 1 APPLN JENN BID Nitroglycerin (Nitrostat), 0.4 MG UT PRN Octreotide Acetate (Octreotide Acetate), 2.5 ML IV Q1H Pantoprazole (Pantoprazole Sodium), 40 MG PO DAILY Pantoprazole Sodium (Protonix), 40 MG IV Q5 Prednisone (Prednisone), 5 MG PO DAILY Sevelamer Carbonate (Renvela), 1,600 MG PO TIDM Vitamin B Cmplx/Vitc/Folic Ac (Nephrocaps), 1 CAP PO DAILY Vitamin E (Vitamin E), 400 UNIT PO DAILY Scheduled PRN Hydromorphone HCl (Hydromorphone HCl), 0.5 MG IV Q4H PRN for Pain Oxycodone Ir (Roxicodone Ir), 5 MG PO Q4H PRN for Severe Pain Current Inpatient Medications Current Inpatient Medications Medications (Trade) Dose Ordered Sig/Amanda Route Start Time Stop Time Status Last Admin Dose Admin Ondansetron HCl (Zofran Inj) 4 mg Q6H PRN IV 03/04/17 19:30 04/03/17 19:29 03/05/17 06:13 4 MG Sodium Chloride 1,000 ml @ 50 mls/hr Q20H IV 03/04/17 19:45 03/06/17 11:44 03/04/17 22:37 50 MLS/HR Nitroglycerin (Nitrostat Tab) 0.4 mg PRN UT 03/04/17 19:45 04/03/17 19:44 Miscellaneous Information (Order Awaiting Action) 1 ea QS N/A 03/05/17 00:00 04/04/17 00:00 Miscellaneous (Iv Fluids Completed) 1 ea PRN PRN N/A 03/04/17 20:00 03/04/18 19:59 Hydromorphone HCl (Dilaudid Inj) 0.5 mg Q4H PRN IV 03/04/17 22:45 03/18/17 22:44 03/05/17 03:01 0.5 MG Promethazine HCl 12.5 mg/Sodium Chloride 50.5 ml @ 204 mls/hr Q6H PRN IV 03/05/17 02:00 04/04/17 01:59 03/05/17 04:49 204 MLS/HR Pantoprazole Sodium 40 mg/ Dextrose 100 ml @ 20 mls/hr Q5H IV 03/05/17 02:30 04/04/17 02:29 03/05/17 07:20 20 MLS/HR Octreotide Acetate 500 mcg/ Sodium Chloride 105 ml @ 10 mls/hr [id number] IV 03/05/17 05:30 04/04/17 05:29 03/05/17 05:55 10 MLS/HR Review of Systems Constitutional: + weakness, No fever, No chills Eyes: No worsening of vision, No eye pain, No diplopia Respiratory: No cough, No sputum, No wheezing Cardiovascular: No chest pain, No edema, No palpitations Abdomen: + pain, + nausea, + GI bleeding, No vomiting Genitourinary - Male: No hematuria, No dysuria, No urinary frequency Endocrine: + fatigue Hematologic / Lymphatic: + abnormal bleeding/bruising Integumentary: No rash, No itch Physical Exam Date Time Temp Pulse Resp B/P (MAP) Pulse Ox O2 Delivery O2 Flow Rate FiO2 03/05/17 07:02 36.5 84 22 105/61 100 03/05/17 05:43 36.6 78 14 125/83 (97) 94 Room Air 03/05/17 05:34 36.5 71 18 100 03/05/17 04:00 100 Room Air 03/05/17 03:50 86/50 (62) 95 03/05/17 03:20 36.5 71 18 87/53 97 03/05/17 03:15 36.5 71 18 96/60 100 03/05/17 02:45 36.5 70 16 97/60 98 03/05/17 02:15 36.6 71 18 93/61 100 03/05/17 02:00 36.6 73 18 91/53 100 03/05/17 01:45 74 89/56 03/05/17 01:30 36.5 76 18 91/53 100 03/05/17 01:15 36.5 76 16 97/65 100 03/05/17 01:06 36.5 72 18 98/62 97 03/05/17 00:19 73 89/53 (65) 100 03/05/17 00:00 100 Room Air 03/04/17 23:25 36.8 74 18 91/55 (67) 99 Room Air 03/04/17 22:00 36.5 79 18 104/79 (87) 100 03/04/17 21:15 36.8 76 18 118/70 (86) 100 Room Air 03/04/17 21:00 36.9 90 18 141/86 (104) 90 Room Air 03/04/17 20:45 36.8 88 17 108/67 97 03/04/17 20:43 36.9 90 18 141/86 90 Room Air 03/04/17 20:30 36.9 77 18 105/58 98 03/04/17 20:15 36.9 67 18 131/75 98 03/04/17 20:01 131/75 03/04/17 20:00 76 18 100 03/04/17 19:58 117/67 03/04/17 19:45 79 20 100 03/04/17 19:31 98/56 03/04/17 19:30 77 16 98 03/04/17 19:11 84 03/04/17 19:06 85 18 119/65 98 Room Air 03/04/17 18:16 98 Room Air 03/04/17 17:33 36.7 92 16 119/74 100 Room Air GENERAL: alert, moderate distress, EYE EXAM: normal conjunctiva, PERRL and EOM's grossly intact NECK: supple, no nuchal rigidity, no adenopathy, non-tender LUNGS: Clear to auscultation. Normal chest wall mechanics HEART: +Systolic murmur, S1 normal and S2 normal ABDOMEN: abdomen diffusely tender, non-distended, normo-active bowel sounds, no masses, no rebound or guarding. SKIN: no rashes and no bruising UPPER EXTREMITIES: upper extremities are grossly normal. LOWER EXTREMITIES: No pitting edema. NEURO EXAM: Normal sensorium, cranial nerves II-XII grossly intact, normal speech, no gross weakness of arms, no gross weakness of legs. Laboratory Results Last 24 Hours Test 03/04/17 17:51 03/04/17 23:02 03/05/17 04:49 03/05/17 06:03 White Blood Count 14.79 K/uL Red Blood Count 2.54 M/uL Hemoglobin 8.3 g/dL 7.6 g/dL 7.5 g/dL Hematocrit 26.2 % 23.1 % 23.9 % Mean Corpuscular Volume 103.1 fL Mean Corpuscular Hemoglobin 32.7 pg Mean Corpuscular Hemoglobin Concent 31.7 g/dl Platelet Count 366 K/uL Mean Platelet Volume 10.7 fL Neutrophils (%) (Auto) 60.8 % Lymphocytes (%) (Auto) 22.6 % Monocytes (%) (Auto) 11.2 % Eosinophils (%) (Auto) 4.1 % Basophils (%) (Auto) 0.3 % Neutrophils # (Auto) 9.01 K/uL Lymphocytes # (Auto) 3.34 K/uL Monocytes # (Auto) 1.65 K/uL Eosinophils # (Auto) 0.60 K/uL Basophils # (Auto) 0.04 K/uL RDW Standard Deviation 65.9 fL RDW Coefficient of Variation 18.4 % Immature Granulocyte % (Auto) 1.0 % Immature Granulocyte # (Auto) 0.15 K/uL Nucleated RBC Absolute Count (auto) 0.46 K/uL Nucleated Red Blood Cells % 3.1 % Polychromasia 1+ Basophilic Stippling 1+ Anisocytosis PRESENT Macrocytosis PRESENT Carter-[place] Bodies 1+ Prothrombin Time 12.6 SECONDS Prothromb Time International Ratio 1.2 Activated Partial Thromboplast Time 34.5 SECONDS Partial Thromboplastin Ratio 1.3 Sodium Level 141 mmol/L Potassium Level 4.4 mmol/L Chloride Level 100 mmol/L Carbon Dioxide Level 33 mmol/L Anion Gap 8.0 mmol/L Blood Urea Nitrogen 32 mg/dl Creatinine 5.80 mg/dl Est Creatinine Clear Calc Drug Dose 13.6 ml/min Estimated GFR () 12.1 Estimated GFR (Non- 10.4 BUN/Creatinine Ratio 5.6 Random Glucose 130 mg/dl Calcium Level 7.8 mg/dl Total Bilirubin 0.9 mg/dl Direct Bilirubin mg/dl Aspartate Amino Transf (AST/SGOT) 46 U/L Alanine Aminotransferase (ALT/SGPT) 258 U/L Alkaline Phosphatase 313 U/L Total Creatine Kinase 56 U/L Creatine Kinase MB 1.2 ng/ml Creatine Kinase MB Ratio 2.1 Troponin I 0.187 ng/ml 0.164 ng/ml Total Protein 6.7 gm/dl Albumin 2.4 gm/dl Lipase 175 U/L Chemistry Specimen Hemolysis Assessment & Plan 51 yo M presenting with hematochezia, diffuse abdominal pain admitted with anemia hypotension currently s/p 4 units of PRBCS's. hypotension improved with IV fluids. 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 Dialyzed yesterday Cr. 5.8 ( Baseline( 4-8) Hypotension resolved with IV NS, PRBC's IV Fluids: IV NS, Fluids from intravenous medications, GI/Nutrition: GI Bleed, Hx Liver Cirrhosis s/p EGD, Colonoscopy EGD evidence of mild gastritis, otherwise unremarkable Colonoscopy. non-bleeding mucosal ulceration with stigmata of recent bleeding, two hemostatic clips placed, area injected with 5 mL of a 1:10,000 solution of epinephrine Feeding: NPO Prophylaxis: On Protonix Endocrine: Last 24 hour glucose: 130 Hematology: GI Bleed, s/p 4 units Hemoglobin 7.5<--7.6 <--8.3 Transfuse with goal of Hct > 21 Infectious Disease/Immunology: Tmax: 36.5 , mild leukocytosis 14.79, likely demargination Disposition: Plan to transfer to [facility] for ongoing care in case for need of IR therapy or Colectomy. attending note, the pt was seen, examined, chart reviewed, for further details refer to Dr. Collins note, appreciate it. this is 51 yo, m, hx of ESRD on HD, liver cirrhosis, CAD s/p CABG, NSTEMI , stented a week ago , on Plavix, developed maroon blood per rectum, required 6 units of blood transfusion, Hct stabilized at 23, seen by Dr. Sibley from GI , underwent GI work up which showed negative EGD and positive ischemic bowel on the colonoscopy above the sigmoid at the right colon , injected with Epi and clipped as well, returned to the ICU stable, VSS, S1S2 RRR, lungs are clear, abdomen soft, uremic color, neurologically non focal. Plan: 1- discussed with Dr. Sibley, given his nature of ischemic bowel, which could re- bleed again and will require IR which is not available at our institution, the pt will be better transferred to a tertiary care center. 2- continue to monitor closely the Hb . 3- Transfuse as needed for Hct > 21 unless actively bleeding. 4- dialysis per schedule. 5- PPI for prophylaxis only. 6- dc Octreotide. 7- discussed with the [facility] medical team who is covering the pt to transfer the pt , work in progress. discussed in details with the staff, appreciate all the principles involved in the case. CCT 45 min. Resident Tracking Resident Involvement: Resident Care Provided Care Provided: Adult Hospital Medicine
[2017-03-05] MEDS ORDERED: CLOPIDOGREL BISULFATE 75 MG TAB PO SCH (09:00)
[2017-03-05] MEDS ORDERED: TOCOPHERYL, DL-ALPHA 400 INTER.UNIT CAP PO SCH (09:00)
[2017-03-05] MEDS ORDERED: PANTOprazole SOD 40 MG TAB PO SCH (09:00)
[2017-03-05] MEDS ORDERED: CINACALCET 30 MG TAB PO SCH (09:00)
[2017-03-05] MEDS ORDERED: NEPHROCAPS PO SCH (09:00)
--- NOTE | 2017-03-05 09:13 | Gastrointestinal Consultation ---
Gastrointestinal Consultation Date of Consultation: Mar 05, 2017 Attending Physician: Dr. Lemons Consulting Physician: Joan Ndiaye PA-C Reason for Consultation: Lower GI bleeding History of Present Illness Patient is a 51 year old male with an extensive medical history including 3 failed kidney transplant, hemodialysis MWF, cirrhosis, CHF, HTN, & CAD who is s/ p stent placement at [facility] 1 week ago. He has been on Plavix and aspirin therapy since that time. He presented to the ER after experiencing an episode of bright red blood per rectum yesterday. He continued to have significant lower GI bleeding since that time. He was transferred to the ICU in the veterinary toxicologist hours as bleeding continued. His Hemoglobin is currently 7.2, though at the time of my visit he had approximately 800ccs of bright red blood passed. He denies significant abdominal pain. He has a history of H Pylori with significant gastric ulcerations as well as cirrhosis. His last EGD at [facility] was in November 2015 and serpentine ulcerations were noted. He has had an EGD at [facility] since that time. He denies any changes in his bowel habits prior to this episode. He denies further complaints at present with the exception of weakness. Despite his multiple medical comorbidities he does report that he wishes to continue to have full code status. He reports he has not had a colonoscopy in many years. Past Medical/Surgical History Medical Problems: (1) Acute coronary syndrome Status: Acute (2) Atrial flutter with rapid ventricular response Status: Acute (3) Chest pain Status: Acute (4) Chest pain Status: Acute (5) Chest pain Status: Acute (6) Elevated troponin Status: Acute (7) Elevated troponin Status: Acute (8) Elevated troponin Status: Acute (9) End stage renal disease Status: Acute (10) Epistaxis Status: Acute (11) ESRD (end stage renal disease) Status: Acute (12) GI bleed Status: Acute (13) GI bleed Status: Acute (14) Hyperbilirubinemia Status: Acute (15) Lower GI bleeding Status: Acute (16) Peptic ulcer disease Status: Acute (17) Precordial chest pain Status: Acute (18) RUQ abdominal pain Status: Acute (19) Sepsis Status: Acute (20) Sepsis Status: Acute (21) Severe anemia Status: Acute (22) Substernal precordial chest pain Status: Acute (23) Unstable angina Status: Acute (24) Upper abdominal pain Status: Acute (25) Wrist pain, left Status: Acute Social History Problems: (1) H/O splenectomy Status: Acute Past Medical History: CD, CHF, ESRD on HD, HTN, Liver Cirrhosis, MD, Syncope, H Pylori Past Surgical History: 3 failed kidney transplants, CABG, cholecystectomy, Cardiac stenting, colonoscopy, EGD Family History FH: heart disease Social History Smoking Status: Never Smoker Alcohol Use: none Drug Use: none Marital Status: Housing Status: lives with significant other Occupation Status: employed, disabled Allergies Coded Allergies: POLLEN (Verified Allergy, Unknown, "HAYFEVER", 02/19/17) Diazoxide (Verified Adverse Reaction, Intermediate, ELEVATE BP;N&V, ) NSAIDs (Verified Adverse Reaction, Unknown, KIDNEY TRANSPLANT, 02/19/17) Current Medications Home Meds and Scripts Medications Dose Route/Sig Max Daily Dose Days Date Category Dose Instructions Imdur Ext Rel (Isosorbide Mononitrate) 30 Mg Tabcr 15 Mg PO BID 03/04/17 Reported HALF OF A 30 MG TABLET. Bactroban 2% Oint (Mupirocin) 66 Appln/22 Gm Oint 1 Appln JENN BID 02/19/17 Reported APPLY SMALL AMOUNT TO INSIDE OF NOSTRILS TWICE DAILY Roxicodone Ir (Oxycodone HCl) 5 Mg Tab 5 Mg PO Q4H PRN 12/11/16 Reported Nitrostat (Nitroglycerin) 0.4 Mg Tab 0.4 Mg UT PRN 12/11/16 Reported NEEDED FOR CHEST PAIN : ONE TABLET UNDER THE TONGUE EVERY 5 MINUTES UP TO 3 DOSES. Aspirin Ec (Aspirin) 81 Mg Tab 81 Mg PO DAILY 11/18/16 Reported Prednisone 5 Mg Tab 5 Mg PO DAILY 11/18/16 Reported Metoprolol Succinate ER (Metoprolol Succinate) 100 Mg Tabcr 50 Mg PO BID 11/18/16 Reported Renvela (Sevelamer Carbonate) 800 Mg Tab 1,600 Mg PO TIDM 11/18/16 Reported Vitamin E 400 Unit Tab 400 Unit PO DAILY 11/18/16 Reported Nephrocaps (Vitamin B Complex/Vit C/Folic Acid) Cap 1 Cap PO DAILY 08/13/16 Reported Pantoprazole Sodium (Pantoprazole) 40 Mg Tab 40 Mg PO DAILY 08/13/16 Reported Clopidogrel (Clopidogrel Bisulfate) 75 Mg Tab 75 Mg PO DAILY 08/13/16 Reported Atorvastatin Calcium (Atorvastatin) 20 Mg Tab 20 Mg PO HS 08/13/16 Reported Sensipar (Cinacalcet) 30 Mg Tab 30 Mg PO QAM 08/13/16 Reported Review of Systems Constitutional: + fatigue, No fever, No chills Eyes: No problem reported Respiratory: No cough, No shortness of breath Cardiac: No chest pain Abdomen: + nausea, + GI bleeding, No pain, No vomiting, No diarrhea, No constipation Musculoskeletal: No joint pain Psych: No problem reported Heme: + abnormal bleeding/bruising Skin: No problem reported Physical Exam Date Time Temp Pulse Resp B/P (MAP) Pulse Ox O2 Delivery O2 Flow Rate FiO2 03/05/17 08:45 36.5 75 14 128/72 100 03/05/17 08:00 Room Air 03/05/17 08:00 36.5 76 18 98/67 (77) 100 Room Air 03/05/17 07:02 36.5 84 22 105/61 100 03/05/17 05:43 36.6 78 14 125/83 (97) 94 Room Air 03/05/17 05:34 36.5 71 18 100 03/05/17 04:00 100 Room Air 03/05/17 03:50 86/50 (62) 95 03/05/17 03:20 36.5 71 18 87/53 97 03/05/17 03:15 36.5 71 18 96/60 100 03/05/17 02:45 36.5 70 16 97/60 98 03/05/17 02:15 36.6 71 18 93/61 100 03/05/17 02:00 36.6 73 18 91/53 100 03/05/17 01:45 74 89/56 03/05/17 01:30 36.5 76 18 91/53 100 03/05/17 01:15 36.5 76 16 97/65 100 03/05/17 01:06 36.5 72 18 98/62 97 03/05/17 00:19 73 89/53 (65) 100 03/05/17 00:00 100 Room Air 03/04/17 23:25 36.8 74 18 91/55 (67) 99 Room Air 03/04/17 22:00 36.5 79 18 104/79 (87) 100 03/04/17 21:15 36.8 76 18 118/70 (86) 100 Room Air 03/04/17 21:00 36.9 90 18 141/86 (104) 90 Room Air 03/04/17 20:45 36.8 88 17 108/67 97 03/04/17 20:43 36.9 90 18 141/86 90 Room Air 03/04/17 20:30 36.9 77 18 105/58 98 03/04/17 20:15 36.9 67 18 131/75 98 03/04/17 20:01 131/75 03/04/17 20:00 76 18 100 03/04/17 19:58 117/67 03/04/17 19:45 79 20 100 03/04/17 19:31 98/56 03/04/17 19:30 77 16 98 03/04/17 19:11 84 03/04/17 19:06 85 18 119/65 98 Room Air 03/04/17 18:16 98 Room Air 03/04/17 17:33 36.7 92 16 119/74 100 Room Air General Appearance: WD/WN Eyes: normal inspection, PERRL Respiratory/Chest: lungs clear, normal breath sounds Cardiovascular: regular rate, rhythm Abdomen: normal bowel sounds, non tender, soft, + pertinent finding ( significant BRBPR) Extremities: non-tender Neurologic/Psych: alert, oriented x 3 Skin: normal color Laboratory Results Last 24 Hours Test 03/04/17 17:51 03/04/17 23:02 03/05/17 04:49 03/05/17 06:03 White Blood Count 14.79 K/uL Red Blood Count 2.54 M/uL Hemoglobin 8.3 g/dL 7.6 g/dL 7.5 g/dL Hematocrit 26.2 % 23.1 % 23.9 % Mean Corpuscular Volume 103.1 fL Mean Corpuscular Hemoglobin 32.7 pg Mean Corpuscular Hemoglobin Concent 31.7 g/dl Platelet Count 366 K/uL Mean Platelet Volume 10.7 fL Neutrophils (%) (Auto) 60.8 % Lymphocytes (%) (Auto) 22.6 % Monocytes (%) (Auto) 11.2 % Eosinophils (%) (Auto) 4.1 % Basophils (%) (Auto) 0.3 % Neutrophils # (Auto) 9.01 K/uL Lymphocytes # (Auto) 3.34 K/uL Monocytes # (Auto) 1.65 K/uL Eosinophils # (Auto) 0.60 K/uL Basophils # (Auto) 0.04 K/uL RDW Standard Deviation 65.9 fL RDW Coefficient of Variation 18.4 % Immature Granulocyte % (Auto) 1.0 % Immature Granulocyte # (Auto) 0.15 K/uL Nucleated RBC Absolute Count (auto) 0.46 K/uL Nucleated Red Blood Cells % 3.1 % Polychromasia 1+ Basophilic Stippling 1+ Anisocytosis PRESENT Macrocytosis PRESENT Carter-[place]arnell Bodies 1+ Prothrombin Time 12.6 SECONDS Prothromb Time International Ratio 1.2 Activated Partial Thromboplast Time 34.5 SECONDS Partial Thromboplastin Ratio 1.3 Sodium Level 141 mmol/L Potassium Level 4.4 mmol/L Chloride Level 100 mmol/L Carbon Dioxide Level 33 mmol/L Anion Gap 8.0 mmol/L Blood Urea Nitrogen 32 mg/dl Creatinine 5.80 mg/dl Est Creatinine Clear Calc Drug Dose 13.6 ml/min Estimated GFR () 12.1 Estimated GFR (Non- 10.4 BUN/Creatinine Ratio 5.6 Random Glucose 130 mg/dl Calcium Level 7.8 mg/dl Total Bilirubin 0.9 mg/dl Direct Bilirubin mg/dl Aspartate Amino Transf (AST/SGOT) 46 U/L Alanine Aminotransferase (ALT/SGPT) 258 U/L Alkaline Phosphatase 313 U/L Total Creatine Kinase 56 U/L Creatine Kinase MB 1.2 ng/ml Creatine Kinase MB Ratio 2.1 Troponin I 0.187 ng/ml 0.164 ng/ml Total Protein 6.7 gm/dl Albumin 2.4 gm/dl Lipase 175 U/L Chemistry Specimen Hemolysis Impression Patient is a 51 year old male who presents with significant BRBPR. H/H is stable and he is currently completing his 3rd transfused unit of PRBCs. Differential includes brisk upper GI blood due to variceal bleeding vs gastric ulcer vs diverticular bleed vs ischemic colitis other. Plan 1) EGD now to assess for brisk upper GI bleed. May attempt flex sig, however colonoscopy with prepped colon may be necessary. 2) Prophylactic antibiotics given history of cirrhosis and concern for esophageal varices. 3) Continue to monitor H/H. 4) Continue Protonix gtt at present. Patient is also on Octreotide drip. 5) Pending results of EGD, will make further recommendations regarding colonoscopy. Thank you for allowing us to participate in the care of this patient. If you should have any further questions or concerns, do not hesitate to contact us. Agree with KATE Fritz as above Abd: Soft, tender Midepigastric area, ND, +BS EGD and unprepped Flex sig now secondary to acute GI blood loss Continue Protonix and Octreotide gtt
[2017-03-05] MEDS ORDERED: CEFTRIAXONE SOD 350MG/ML 1 GM VIAL IM ONE (09:30)
[2017-03-05] MEDS ORDERED: CEFTRIAXONE SOD INJ 1 GM in DEXTROSE 5% ADD-VANTAGE 50ML 50 ML IV SCH (10:00)
--- NOTE | 2017-03-05 10:00 | Nephrology Consultation ---
Nephrology Consultation Date & Providers Date of Consultation: Mar 05, 2017. Primary Care Provider: Todd Azevedo M.D. Referring Provider: Reason for Consultation Management of hemodialysis while inpatient. History of Present Illness Sebastian is a 60-year-old gentleman past medical history significant for ESRD currently on hemodialysis, admitted to the hospital with episodes of lower GI bleeding since yesterday. Nephrology consult was requested to provide hemodialysis care while in the hospital. EMR were reviewed in detail during the patient's visit. Sebastian presented to the emergency room after he had several episodes bright red blood with blood clots per rectum. He has no prior history of GI bleeding. On admission his hemoglobin was 8.7. He worried blood transfusion and currently getting his 4 units of blood transfusion. Hemoglobin has been dropping despite blood transfusion, last hemoglobin was 7.5, he continues to have episodes of fresh blood with clots per rectum. His vital sign remained stable , has been on IV fluid and IV pantoprazole. Currently he is being transferred to GI lab emergently for EGD and colonoscopy. His overall not feeling well, having some pain and discomfort in his abdomen however, denies any shortness of breath or chest pain at this point. No nausea or vomiting. He was recently admitted to [facility], had cardiac catheterization and PTCA with stent placement. Since then he has been on dual antiplatelet therapy with aspirin and clopidogrel. He has significant history of coronary artery disease with CABG and stent placed previously. He has very complicated past medical history. 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 He received his first living related donor transplant in 1980 and prior to the transplant he had bilateral the [place] nephrectomy, splenectomy and appendectomy. He returned to maintenance hemodialysis in a few years as his transplant failed possibly because of rejection due to noncompliance. He received a second transplant in 1990 however , unfortunately it failed in few years and he again returned to maintenance hemodialysis. He received a third transplant in 2010. His serum creatinine has been stable at 1.6-2.0. 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 Currently he is on dialysis Wednesday, Wednesday, Wednesday at [facility] dialysis unit. He has been off of IS since. He has been getting his dialysis regularly, last dialysis was on Wednesday and had full treatment. Currently his volume status, electrolytes and blood pressure stable. Allergies Coded Allergies: POLLEN (Verified Allergy, Unknown, "HAYFEVER", 02/19/17) Diazoxide (Verified Adverse Reaction, Intermediate, ELEVATE BP;N&V, ) NSAIDs (Verified Adverse Reaction, Unknown, KIDNEY TRANSPLANT, 02/19/17) Inpatient Medications Current Inpatient Medications Medications (Trade) Dose Ordered Sig/Amanda Route Start Time Stop Time Status Last Admin Dose Admin Ondansetron HCl (Zofran Inj) 4 mg Q6H PRN IV 03/04/17 19:30 04/03/17 19:29 03/05/17 06:13 4 MG Sodium Chloride 1,000 ml @ 50 mls/hr Q20H IV 03/04/17 19:45 03/06/17 11:44 03/04/17 22:37 50 MLS/HR Nitroglycerin (Nitrostat Tab) 0.4 mg PRN UT 03/04/17 19:45 04/03/17 19:44 Miscellaneous Information (Order Awaiting Action) 1 ea QS N/A 03/05/17 00:00 04/04/17 00:00 Miscellaneous (Iv Fluids Completed) 1 ea PRN PRN N/A 03/04/17 20:00 03/04/18 19:59 Hydromorphone HCl (Dilaudid Inj) 0.5 mg Q4H PRN IV 03/04/17 22:45 03/18/17 22:44 03/05/17 03:01 0.5 MG Promethazine HCl 12.5 mg/Sodium Chloride 50.5 ml @ 204 mls/hr Q6H PRN IV 03/05/17 02:00 04/04/17 01:59 03/05/17 04:49 204 MLS/HR Pantoprazole Sodium 40 mg/ Dextrose 100 ml @ 20 mls/hr Q5H IV 03/05/17 02:30 04/04/17 02:29 03/05/17 07:20 20 MLS/HR Octreotide Acetate 500 mcg/ Sodium Chloride 105 ml @ 10 mls/hr [id number] IV 03/05/17 05:30 04/04/17 05:29 03/05/17 05:55 10 MLS/HR Family History FH: heart disease Social History Smoking Status: Never Smoker Smokeless Tobacco Use: No Alcohol Use: socially Drug Use: none Marital Status: Housing Status: lives with family Occupation: employed, disabled Review of Systems A complete review of systems was performed. Pertinent positives are noted above. All other systems are negative. Physical Exam Date Time Temp Pulse Resp B/P (MAP) Pulse Ox O2 Delivery O2 Flow Rate FiO2 03/05/17 07:02 36.5 84 22 105/61 100 03/05/17 05:43 36.6 78 14 125/83 (97) 94 Room Air 03/05/17 05:34 36.5 71 18 100 03/05/17 04:00 100 Room Air 03/05/17 03:50 86/50 (62) 95 03/05/17 03:20 36.5 71 18 87/53 97 03/05/17 03:15 36.5 71 18 96/60 100 03/05/17 02:45 36.5 70 16 97/60 98 03/05/17 02:15 36.6 71 18 93/61 100 03/05/17 02:00 36.6 73 18 91/53 100 03/05/17 01:45 74 89/56 03/05/17 01:30 36.5 76 18 91/53 100 03/05/17 01:15 36.5 76 16 97/65 100 03/05/17 01:06 36.5 72 18 98/62 97 03/05/17 00:19 73 89/53 (65) 100 03/05/17 00:00 100 Room Air 03/04/17 23:25 36.8 74 18 91/55 (67) 99 Room Air 03/04/17 22:00 36.5 79 18 104/79 (87) 100 03/04/17 21:15 36.8 76 18 118/70 (86) 100 Room Air 03/04/17 21:00 36.9 90 18 141/86 (104) 90 Room Air 03/04/17 20:45 36.8 88 17 108/67 97 03/04/17 20:43 36.9 90 18 141/86 90 Room Air 03/04/17 20:30 36.9 77 18 105/58 98 03/04/17 20:15 36.9 67 18 131/75 98 03/04/17 20:01 131/75 03/04/17 20:00 76 18 100 03/04/17 19:58 117/67 03/04/17 19:45 79 20 100 03/04/17 19:31 98/56 03/04/17 19:30 77 16 98 03/04/17 19:11 84 03/04/17 19:06 85 18 119/65 98 Room Air 03/04/17 18:16 98 Room Air 03/04/17 17:33 36.7 92 16 119/74 100 Room Air Laboratory Results Last 24 Hours Test 03/04/17 17:51 03/04/17 23:02 03/05/17 04:49 03/05/17 06:03 White Blood Count 14.79 K/uL Red Blood Count 2.54 M/uL Hemoglobin 8.3 g/dL 7.6 g/dL 7.5 g/dL Hematocrit 26.2 % 23.1 % 23.9 % Mean Corpuscular Volume 103.1 fL Mean Corpuscular Hemoglobin 32.7 pg Mean Corpuscular Hemoglobin Concent 31.7 g/dl Platelet Count 366 K/uL Mean Platelet Volume 10.7 fL Neutrophils (%) (Auto) 60.8 % Lymphocytes (%) (Auto) 22.6 % Monocytes (%) (Auto) 11.2 % Eosinophils (%) (Auto) 4.1 % Basophils (%) (Auto) 0.3 % Neutrophils # (Auto) 9.01 K/uL Lymphocytes # (Auto) 3.34 K/uL Monocytes # (Auto) 1.65 K/uL Eosinophils # (Auto) 0.60 K/uL Basophils # (Auto) 0.04 K/uL RDW Standard Deviation 65.9 fL RDW Coefficient of Variation 18.4 % Immature Granulocyte % (Auto) 1.0 % Immature Granulocyte # (Auto) 0.15 K/uL Nucleated RBC Absolute Count (auto) 0.46 K/uL Nucleated Red Blood Cells % 3.1 % Polychromasia 1+ Basophilic Stippling 1+ Anisocytosis PRESENT Macrocytosis PRESENT Carter-[place] Bodies 1+ Prothrombin Time 12.6 SECONDS Prothromb Time International Ratio 1.2 Activated Partial Thromboplast Time 34.5 SECONDS Partial Thromboplastin Ratio 1.3 Sodium Level 141 mmol/L Potassium Level 4.4 mmol/L Chloride Level 100 mmol/L Carbon Dioxide Level 33 mmol/L Anion Gap 8.0 mmol/L Blood Urea Nitrogen 32 mg/dl Creatinine 5.80 mg/dl Est Creatinine Clear Calc Drug Dose 13.6 ml/min Estimated GFR () 12.1 Estimated GFR (Non- 10.4 BUN/Creatinine Ratio 5.6 Random Glucose 130 mg/dl Calcium Level 7.8 mg/dl Total Bilirubin 0.9 mg/dl Direct Bilirubin mg/dl Aspartate Amino Transf (AST/SGOT) 46 U/L Alanine Aminotransferase (ALT/SGPT) 258 U/L Alkaline Phosphatase 313 U/L Total Creatine Kinase 56 U/L Creatine Kinase MB 1.2 ng/ml Creatine Kinase MB Ratio 2.1 Troponin I 0.187 ng/ml 0.164 ng/ml Total Protein 6.7 gm/dl Albumin 2.4 gm/dl Lipase 175 U/L Chemistry Specimen Hemolysis Impression Sebastian is a 50-year-old male with ESRD on maintenance hemodialysis admitted to the hospital with GIB. his currently getting 4 units of PRBC, continues to have active bleeding and hemoglobin has been dropping, hemoglobin on admission was 8.5 which dropped to 7.5 now. No prior history of GI bleeding. Previous recently he had cardiac catheterization, stent placed and started on dual antiplatelet therapy. He remained hemodynamically stable, currently getting ready for emergency EGD and colonoscopy. On IV fluid and IV PPI History of prior renal transplant x 3, currently off of immunosuppression after failed last allograft. Has been getting dialysis regularly and currently volume status, electrolytes and blood pressure stables. Recommendations --we'll schedule for dialysis this afternoon pending EGD, colonoscopy and clinical status. We can even hold dialysis if clinically unstable, currently blood pressure, electrolyte and volume status acceptable however he has been getting IV fluid as well as the blood transfusion. --Dose all medications for GFR less than 10 --continue on Nephrocap daily --We will continue on RANDY with dialysis --Continue sensipar, sevelamer and calcitriol Thank you for the consult. It was a pleasure to see Sebastian. Will follow
[2017-03-05] MEDS ORDERED: KETAMINE HCL INJ 50 MG/ML 10 ML VIAL ONE (10:01)
--- NOTE | 2017-03-05 10:53 | GI REPORT ---
Procedure Date: 03/05/2017 10:11 AM Procedure: Colonoscopy Indications: Hematochezia Medicines: Monitored Anesthesia Care Complications: No immediate complications. Estimated Blood Loss: Estimated blood loss: none. Procedure: Pre-Anesthesia Assessment: - Prior to the procedure, a History and Physical was performed, and patient medications and allergies were reviewed. The patient's tolerance of previous anesthesia was also reviewed. The risks and benefits of the procedure and the sedation options and risks were discussed with the patient. All questions were answered, and informed consent was obtained. Prior Anticoagulants: The patient last took aspirin 1 day and Plavix (clopidogrel) 1 day prior to the procedure. ASA Grade Assessment: E - Emergency. After reviewing the risks and benefits, the patient was deemed in satisfactory condition to undergo the procedure. After I obtained informed consent, the scope was passed under direct vision. Throughout the procedure, the patient's blood pressure, pulse, and oxygen saturations were monitored continuously. The scope was introduced through the anus and advanced to the terminal ileum. The colonoscopy was performed with moderate difficulty due to poor bowel prep. The patient tolerated the procedure well. The quality of the bowel preparation was poor, as the procedure was performed unprepped. Findings: Discontinuous areas of nonbleeding ulcerated mucosa with stigmata of recent bleeding were present in the ascending colon and in the cecum. Area was successfully injected with 5 mL of a 1:10,000 solution of epinephrine for hemostasis. For hemostasis, two hemostatic clips were successfully placed (MR conditional). There was no bleeding at the end of the procedure. A moderate amount of solid stool was found in the transverse colon, in the ascending colon and in the cecum, interfering with visualization. Multiple small-mouthed diverticula were found in the sigmoid colon. Non-bleeding internal hemorrhoids were found during retroflexion. The hemorrhoids were small. Impression: - Mucosal ulceration. Injected. Clips (MR conditional) were placed. - Stool in the transverse colon, in the ascending colon and in the cecum. - Non-bleeding internal hemorrhoids. - No specimens collected. Recommendation: - Return patient to ICU for ongoing care. - Clear liquid diet. - Continue present medications. Isreal Sibley DO 03/05/2017 10:52:39 AM This report has been signed electronically. Note Initiated On: 03/05/2017 10:11 AM I attest to the content of the Intraoperative Record and orders documented therein, exceptions below
--- NOTE | 2017-03-05 10:58 | Anesthesiology Progress Note ---
Anesthesia Post Op Note Date & Time Mar 05, 2017 at 10:57 Vital Signs Pain Intensity: 4.0 Vital Signs Past 12 Hours Date Time Temp Pulse Resp B/P (MAP) Pulse Ox O2 Delivery O2 Flow Rate FiO2 03/05/17 09:40 36.6 74 16 135/69 (91) 99 Room Air 03/05/17 09:13 36.7 74 20 156/72 100 03/05/17 08:45 36.5 75 14 128/72 100 03/05/17 08:00 Room Air 03/05/17 08:00 36.5 76 18 98/67 (77) 100 Room Air 03/05/17 07:02 36.5 84 22 105/61 100 03/05/17 05:43 36.6 78 14 125/83 (97) 94 Room Air 03/05/17 05:34 36.5 71 18 100 03/05/17 04:00 100 Room Air 03/05/17 03:50 86/50 (62) 95 03/05/17 03:20 36.5 71 18 87/53 97 03/05/17 03:15 36.5 71 18 96/60 100 03/05/17 02:45 36.5 70 16 97/60 98 03/05/17 02:15 36.6 71 18 93/61 100 03/05/17 02:00 36.6 73 18 91/53 100 03/05/17 01:45 74 89/56 03/05/17 01:30 36.5 76 18 91/53 100 03/05/17 01:15 36.5 76 16 97/65 100 03/05/17 01:06 36.5 72 18 98/62 97 03/05/17 00:19 73 89/53 (65) 100 03/05/17 00:00 100 Room Air 03/04/17 23:25 36.8 74 18 91/55 (67) 99 Room Air Notes Mental Status: alert / awake / arousable, participated in evaluation Pt Amnestic to Procedure: Yes Nausea / Vomiting: adequately controlled Pain: adequately controlled Airway Patency, RR, SpO2: stable & adequate BP & HR: stable & adequate Hydration State: stable & adequate Anesthetic Complications: no major complications apparent The patient tolerated the procedure well. He was hemodynamically stable throughout. He is being transported back to the ICU on monitors. I spoke to the ICU team about the patient.
--- NOTE | 2017-03-05 11:00 | GI REPORT ---
Procedure Date: 03/05/2017 9:50 AM Procedure: Upper GI endoscopy Indications: Acute post hemorrhagic anemia Medicines: Monitored Anesthesia Care Complications: No immediate complications. Estimated Blood Loss: Estimated blood loss: none. Procedure: Pre-Anesthesia Assessment: - Prior to the procedure, a History and Physical was performed, and patient medications and allergies were reviewed. The patient's tolerance of previous anesthesia was also reviewed. The risks and benefits of the procedure and the sedation options and risks were discussed with the patient. All questions were answered, and informed consent was obtained. Prior Anticoagulants: The patient last took aspirin 1 day and Plavix (clopidogrel) 1 day prior to the procedure. ASA Grade Assessment: E - Emergency. After reviewing the risks and benefits, the patient was deemed in satisfactory condition to undergo the procedure. After obtaining informed consent, the endoscope was passed under direct vision. Throughout the procedure, the patient's blood pressure, pulse, and oxygen saturations were monitored continuously. The scope was introduced through the mouth, and advanced to the fourth part of duodenum. The upper GI endoscopy was accomplished without difficulty. The patient tolerated the procedure well. Findings: The esophagus was normal. A small hiatus hernia was present. Localized mild inflammation characterized by erythema was found in the gastric antrum. The examined duodenum was normal. Impression: - Normal esophagus. - Small hiatus hernia. - Gastritis. - Normal examined duodenum. - No specimens collected. Recommendation: - Perform a colonoscopy today. Isreal Sibley DO 03/05/2017 11:00:27 AM This report has been signed electronically. Note Initiated On: 03/05/2017 9:50 AM I attest to the content of the Intraoperative Record and orders documented therein, exceptions below
[2017-03-05] MEDS ORDERED: PROPOFOL IV EMULSION 10 MG/ML 20 ML VIAL IV ONE (11:07)
[2017-03-05] MEDS ORDERED: EpINEphrine INJ 1MG/ML AMP 1 MG/ML AMP ONE (11:09)
[2017-03-05] MEDS ORDERED: PANT1INJ2 IV (11:35)
[2017-03-05] MEDS ORDERED: DLDI.5 IV (11:35)
[2017-03-05] MEDS ORDERED: [UNRECOGNIZED DRUG - CODE] IV (11:35)
--- NOTE | 2017-03-05 11:52 | Discharge Summary ---
Discharge Summary Date of Service Mar 05, 2017. (Sebastian Molina M.D.) Discharge Summary Admission Date: Mar 05, 2017 at 05:46 Discharge Date: Mar 05, 2017 Discharge Disposition: [facility] ([facility]) Principal Diagnosis: GI Bleed Immunizations: Have You Had Influenza Vaccine: No Influenza Vaccine Date: May 03, 2008 History of Tetanus Vaccine?: Unknown Tetanus Immunization Date: Oct 06, 2000 History of Pneumococcal: No Pneumococcal Date: Oct 06, 2005 History of Hepatitis B Vaccine: Unknown Hepatitis Immunization Date: Oct 06, 2000 Procedures: COLONOSCOPY Impression: - Mucosal ulceration. Injected. Clips (MR conditional) were placed. - Stool in the transverse colon, in the ascending colon and in the cecum. - Non-bleeding internal hemorrhoids. - No specimens collected. Recommendation: - Return patient to ICU for ongoing care. - Clear liquid diet. - Continue present medications. Upper Endoscopy Findings: The esophagus was normal. A small hiatus hernia was present. Localized mild inflammation characterized by erythema was found in the gastric antrum. The examined duodenum was normal. Impression: - Normal esophagus. - Small hiatus hernia. - Gastritis. - Normal examined duodenum. - No specimens collected. ABD/PELVIS NO IV OR ORAL CONT CT DOSE: 323.50 mGy.cm HISTORY: Pain. Bleeding. dialysis pt. Gi bleed, lower abd pain. TECHNIQUE: Multiaxial CT images of the abdomen and pelvis were performed without contrast. A dose lowering technique was utilized adhering to the principles of ALARA. COMPARISON STUDY: 08/13/2016 FINDINGS: Lung bases are clear. Pleural thickening right base medially anterior to right paravertebral location. Calcification of the myocardium and associated cardiac vasculature. This is similar as compared to the prior study. Cirrhotic liver. Calcification of the liver capsule unchanged. Cirrhotic appearing liver area Right lateral abdominal hernia containing loops of bowel unchanged from the prior study. This appears to be a nonobstructive finding, and is most likely a lateral hernia.. 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 Extensive atherosclerotic change of the abdominal and pelvic arterial vasculature. Bowel pattern overall is nonobstructive. Adenopathy including a calcified right lower quadrant density is unchanged. No evidence for ascites. Anasarca produces described is not identified. IMPRESSION: 1. Extensive changes throughout the abdomen and pelvis described above, all of which appear chronic.. 2. Stable abdominal and pelvic adenopathy. 3. Stable cirrhotic appearance to the liver. 4. Stable lateral abdominal hernia with contained bowel loops. This is nonobstructive. 5. No significant interval change compared to the prior study. 6. Mild nonobstructive ileus. (Sebastian Molina M.D.) Medication Reconciliation New Medications: Octreotide Acetate (Octreotide Acetate) 200 Mcg/Ml Inj 2.5 ML IV Q1H for 30 Days Pantoprazole Sodium (Protonix) 40 Mg Inj 40 MG IV Q5 for 30 Days Hydromorphone HCl (Hydromorphone HCl) 0.5 Mg/0.5 Ml Inj 0.5 MG IV Q4H PRN for Pain for 30 Days Discontinued Medications: Aspirin (Aspirin Ec) 81 Mg Tab 81 MG PO DAILY Atorvastatin (Atorvastatin Calcium) 20 Mg Tab 20 MG PO HS, #90 Cinacalcet Hydrochloride (Sensipar) 30 Mg Tab 30 MG PO QAM, #90 Clopidogrel Bisulfate (Clopidogrel) 75 Mg Tab 75 MG PO DAILY Isosorbide Mononitrate Ext Rel (Imdur Ext Rel) 30 Mg Tabcr 15 MG PO BID HALF OF A 30 MG TABLET. Metoprolol Succinate (Metoprolol Succinate ER) 100 Mg Tabcr 50 MG PO BID Mupirocin (Bactroban 2% Oint) 66 Appln/22 Gm Oint 1 APPLN JENN BID, #22 APPLY SMALL AMOUNT TO INSIDE OF NOSTRILS TWICE DAILY Nitroglycerin (Nitrostat) 0.4 Mg Tab 0.4 MG UT PRN, BTL NEEDED FOR CHEST PAIN : ONE TABLET UNDER THE TONGUE EVERY 5 MINUTES UP TO 3 DOSES. Oxycodone Ir (Roxicodone Ir) 5 Mg Tab 5 MG PO Q4H PRN for Severe Pain, TAB Pantoprazole (Pantoprazole Sodium) 40 Mg Tab 40 MG PO DAILY, #60 Prednisone (Prednisone) 5 Mg Tab 5 MG PO DAILY, TAB Sevelamer Carbonate (Renvela) 800 Mg Tab 1600 MG PO TIDM Vitamin B Cmplx/Vitc/Folic Ac (Nephrocaps) Cap 1 CAP PO DAILY, CAP Vitamin E (Vitamin E) 400 Unit Tab 400 UNIT PO DAILY Discharge Exam Please see Dr. Sanz's Addendum for today's Physical Exam. (Sebastian Molina M.D.) Physical Exam: General Appearance: no apparent distress (fatigued post colo) Eyes: EOMI ENT: hearing grossly normal Neck: trachea midline Respiratory/Chest: no respiratory distress, no accessory muscle use Abdomen / GI: soft (diffusely tender without guardign/rebound or rigidity. 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 BRBPR continued on admission, pt received 2 units PRBC and was transferred to the ICU. Cards, Nephro and GI were consulted. Colonoscopy today showed no active bleeding but per our Compliance Monitor the pt was a high risk of rebleeding. If that were the case the pt would need Interventional Radiology. [facility] was contacted for Transfer. On Transfer the patient was on a PPI IV, Octreotide IV drop and a Ranitidine Drip. Home meds including ASA and Plavix were held. Our Nephrology team deemed that if the patient was unstable they could hold off dialysis today. Pt's usual dialysis schedule is M/W/F. As of time of transfer we will hold of today (Wednesday's dialysis). Pt will likely need dialysis on Wednesday. Upper endoscopy was grossly normal - See above for Upper and Lower endoscopy reports as well as CT Abdo and Pelvis report. Our GI team recommend restarting a clear liquid diet. Other medical conditions and our treatments were as follows: CAD w/recent stent placement 1 week ago - We held the ASA and Plavix due to active bleeding. - We held the Imdur, Beta rubin due to low BPs. CKD, Stage V s/p Bilateral Renal Transplant - Dialysis Wed/Wed/Wed. - Pt did not receive dialysis at [facility] today (Wednesday). Chronic Prednisone Use - Holding 5mg Prednisone Daily. HLD - Holding daily Atorvastatin. Consider restarting as pt's diet progresses. Total Time Spent: Greater than 30 minutes This includes examination of the patient, discharge planning, medication reconciliation, and communication with other providers. (Sebastian Molina M.D.) Resident Physician Supervision Note: I interviewed and examined the patient. Discussed with Dr. Molina and agree with findings and plan as documented in the note. Any exceptions or clarifications are listed here: None Documented By: Artie Sanz feeling ok right now. no complaints. see above. extensive discussions with [facility] [place] and set for transfer to have IR backup and/or high risk surgical team should resection be required. he is amenable to transfer vitals and exam as above LGI bleed w acute blood loss anemia requiring fairly massive transfusion (4 units) -- no backup here should he rebleed (would be forced to consider high risk colectomy) - d/w [facility] [place] - for transfer there for IR backup and high risk surgical backup CAD w recent drug eluting stent - EKG does show new flipped T waves compared to previous but no symptoms, no ST elevations, and troponin minimally elevated in the ~0.15 range and trending down ESRD on HD - m/w/f HD - was getting treatment today otherwise as above Total Time Spent: Greater than 30 minutes (Artie Sanz, D.Logan) Discharge Instructions Please refer to the electronic Patient Visit Report (Discharge Instructions) for additional information. (Sebastian Molina M.D.) Additional Copies To Todd Azevedo M.D. Resident Involvement: Resident Care Provided Care Provided: Adult [facility] Medicine (Sebastian Molina M.D.)
--- NOTE | 2017-03-05 12:09 | Discharge Instructions ---
Discharge Instructions Date of Service Mar 05, 2017. Admission Reason for Admission: Lower Gi Bleed Discharge Discharge Diagnosis / Problem: GI Bleed Discharge Goals Goal(s): Decrease discomfort, Improve function, Increase independence, Learn about illness, Diagnostic testing Activity Recommendations Activity Limitations: per Instructions/Follow-up section . Instructions / Follow-Up Instructions / Follow-Up You have found to have an active GI bleed and received 2 units of packed red blood cells in the hospital. Per our colonoscopy report there is a small to moderate risk of rebleeding. If this were to occur we would need to consult an Interventional Radiologist to localize the source of the bleeding and stop the bleeding. At present [facility] does not have an Interventional Radiology department and we will have to transfer you to a tertiary care facility. [facility] is the facility that we are transferring you to. At the tertiary care facility ([facility]) they will resume your dialysis treatments. Current Hospital Diet Patient's current hospital diet: Discharge Diet Recommended Diet: AHA Diet (Heart Healthy) Procedures Procedures Performed: COLON EGD Pending Studies Studies pending at discharge: no Laboratory Results Hemoglobin A1c Test 02/20/17 05:59 Range/Units Estimated Average Glucose 111 mg/dl Hemoglobin A1c 5.5 4.5-5.6 % Lipid Panel Test 02/19/17 11:15 Range/Units Triglycerides Level 120 0-150 mg/dl Cholesterol Level 70 0-200 mg/dl HDL Cholesterol 29 mg/dl Cholesterol/HDL Ratio 2.4 LDL Cholesterol, Calculated 17 mg/dl Medical Emergencies . Who to Call and When: Medical Emergencies: If at any time you feel your situation is an emergency, please call 911 immediately. . Non-Emergent Contact Non-Emergency issues call your: Primary Care Provider, Garage Manager, Director Of Public Relations, Forestry Consultant . . "Provider Documentation" section prepared by Sebastian Molina. . VTE Core Measure Inpt VTE Proph given/why not?: SCD's, Contraindicated (no antiplatelet or anticoagulation due to GI bleed.) Resident Involvement: Resident Care Provided Care Provided: Adult Hospital Medicine
--- NOTE | 2017-03-05 12:15 | Cardiology Consultation ---
Cardiology Consultation Date of Consultation: Mar 05, 2017. Requesting Physician: Dr. Lemons Reason for Consultation: Management of CAD and antiplatelet therapy Pt evaluation today including: conversation w/ patient, conversation w/ family , physical exam, chart review, lab review, review of studies, review of inpatient medication list, conversation w/ attending History of Present Illness Mr. Segura is a 51 year old male with a complex medical history including ESRD status post failed renal transplant x3 maintained on hemodialysis, severe CAD status post 2 vessel bypass and multiple PCIs, ischemic cardiomyopathy (EF 45-50 %), hypertension, dyslipidemia and pulmonary hypertension who was admitted on 06/11 with acute gastrointestinal bleeding. He was admitted to [facility] on 02/19/17 with a non-ST elevation myocardial infarction. His electrocardiogram noted new T wave inversions and ST depressions. His troponin peaked at 0.576. He underwent cardiac catheterization on 02/23/17 which revealed the following: -LM - Severe calcification with diffuse in-stent disease -LAD - Severely calcified, occluded ostially -Circumflex - Severely calcified, occluded proximally -Ramus - Severely calcified, occluded proximally -RCA - Severely calcified, non-dominant, occluded proximally with bridging right to right collaterals. -HUMPHREYS-LAD - widely patent; 40% in-stent restenosis in distal LAD -SVG-LPLB - 80-90% focal thrombotic stenosis in mid graft; retrofills distal circumflex and L-PDA with 50% ostial stenosis. It was felt the stenosis in his SVG to LPLB was amendable to PCI but would be high risk and he was therefore transferred to [facility] where his prior stenting was performed. I do not have records available from [place] but the patient and his report he did have a stent placed (unsure if bare metal or ANTON). He reports he has been feeling relatively well from a cardiac standpoint since discharge from [place]. He has not had any further chest discomfort. He was discharged on ASA 81 mg daily and Plavix 75 mg daily which he has been on for quite some time. Yesterday (03/04/17) he had multiple bowel movements containing bright red blood. He later also developed abdominal discomfort and nausea. He therefore presented to the ED and was subsequently admitted. Upon admission his Hgb was 8.3. His hemoglobin dropped to 7.5 overnight and he was noted to have dark stools. He was seen at the bedside and is accompanied by his . He is currently being transfused. He will be having an EGD later this morning. His aspirin and Plavix are currently being held. He complains of abdominal pain, especially in the right lower quadrant. He denies chest pain, dyspnea, orthopnea, PND, peripheral edema, palpitations, presyncope or syncope. He has felt lightheaded. The remainder of his review of systems is unremarkable. Family History FH: heart disease Social History Smoking Status: Never Smoker History of Alcohol Use: No Review of Systems Respiratory: + dyspnea on exertion Allergies Coded Allergies: POLLEN (Verified Allergy, Unknown, "HAYFEVER", 02/19/17) Diazoxide (Verified Adverse Reaction, Intermediate, ELEVATE BP;N&V, ) NSAIDs (Verified Adverse Reaction, Unknown, KIDNEY TRANSPLANT, 02/19/17) Medications Current Inpatient Medications Medications (Trade) Dose Ordered Sig/Amanda Route Start Time Stop Time Status Last Admin Dose Admin Ondansetron HCl (Zofran Inj) 4 mg Q6H PRN IV 03/04/17 19:30 04/03/17 19:29 03/05/17 06:13 4 MG Sodium Chloride 1,000 ml @ 50 mls/hr Q20H IV 03/04/17 19:45 03/06/17 11:44 03/04/17 22:37 50 MLS/HR Nitroglycerin (Nitrostat Tab) 0.4 mg PRN UT 03/04/17 19:45 04/03/17 19:44 Miscellaneous Information (Order Awaiting Action) 1 ea QS N/A 03/05/17 00:00 04/04/17 00:00 Miscellaneous (Iv Fluids Completed) 1 ea PRN PRN N/A 03/04/17 20:00 03/04/18 19:59 Hydromorphone HCl (Dilaudid Inj) 0.5 mg Q4H PRN IV 03/04/17 22:45 03/18/17 22:44 03/05/17 03:01 0.5 MG Promethazine HCl 12.5 mg/Sodium Chloride 50.5 ml @ 204 mls/hr Q6H PRN IV 03/05/17 02:00 04/04/17 01:59 03/05/17 04:49 204 MLS/HR Pantoprazole Sodium 40 mg/ Dextrose 100 ml @ 20 mls/hr Q5H IV 03/05/17 02:30 04/04/17 02:29 03/05/17 07:20 20 MLS/HR Octreotide Acetate 500 mcg/ Sodium Chloride 105 ml @ 10 mls/hr [id number] IV 03/05/17 05:30 04/04/17 05:29 03/05/17 05:55 10 MLS/HR Physical Exam Vital Signs Past 12 Hours Date Time Temp Pulse Resp B/P (MAP) Pulse Ox O2 Delivery O2 Flow Rate FiO2 03/05/17 08:45 36.5 75 14 128/72 100 03/05/17 08:00 Room Air 03/05/17 08:00 36.5 76 18 98/67 (77) 100 Room Air 03/05/17 07:02 36.5 84 22 105/61 100 03/05/17 05:43 36.6 78 14 125/83 (97) 94 Room Air 03/05/17 05:34 36.5 71 18 100 03/05/17 04:00 100 Room Air 03/05/17 03:50 86/50 (62) 95 03/05/17 03:20 36.5 71 18 87/53 97 03/05/17 03:15 36.5 71 18 96/60 100 03/05/17 02:45 36.5 70 16 97/60 98 03/05/17 02:15 36.6 71 18 93/61 100 03/05/17 02:00 36.6 73 18 91/53 100 03/05/17 01:45 74 89/56 03/05/17 01:30 36.5 76 18 91/53 100 03/05/17 01:15 36.5 76 16 97/65 100 03/05/17 01:06 36.5 72 18 98/62 97 03/05/17 00:19 73 89/53 (65) 100 03/05/17 00:00 100 Room Air 03/04/17 23:25 36.8 74 18 91/55 (67) 99 Room Air 03/04/17 22:00 36.5 79 18 104/79 (87) 100 03/04/17 21:15 36.8 76 18 118/70 (86) 100 Room Air General: Obviously uncomfortable but no acute distress. Alert and oriented. HEENT: Head is atraumatic and normocephalic. EOMs intact. Sclera anicteric. Mucous membranes moist. Neck: Supple, no JVD, no carotid bruits Pulmonary: Clear to auscultation bilaterally without rales, rhonchi or wheezing. Cardiac: Regular rate and rhythm. normal S1 and S2. Grade 2/6 systolic murmur best heard right upper sternal border. No diastolic murmur, gallop or rub. Extremities: No clubbing, cyanosis, or edema. Pulses intact. AV fistula left forearm Abdomen: Generalized tenderness. Bowel sounds present. Skin: No rash or abnormal lesions. Neurological: No lateralizing changes. Data Laboratory Results: Last 24 Hours Test 03/04/17 17:51 03/04/17 23:02 03/05/17 04:49 03/05/17 06:03 White Blood Count 14.79 K/uL Red Blood Count 2.54 M/uL Hemoglobin 8.3 g/dL 7.6 g/dL 7.5 g/dL Hematocrit 26.2 % 23.1 % 23.9 % Mean Corpuscular Volume 103.1 fL Mean Corpuscular Hemoglobin 32.7 pg Mean Corpuscular Hemoglobin Concent 31.7 g/dl Platelet Count 366 K/uL Mean Platelet Volume 10.7 fL Neutrophils (%) (Auto) 60.8 % Lymphocytes (%) (Auto) 22.6 % Monocytes (%) (Auto) 11.2 % Eosinophils (%) (Auto) 4.1 % Basophils (%) (Auto) 0.3 % Neutrophils # (Auto) 9.01 K/uL Lymphocytes # (Auto) 3.34 K/uL Monocytes # (Auto) 1.65 K/uL Eosinophils # (Auto) 0.60 K/uL Basophils # (Auto) 0.04 K/uL RDW Standard Deviation 65.9 fL RDW Coefficient of Variation 18.4 % Immature Granulocyte % (Auto) 1.0 % Immature Granulocyte # (Auto) 0.15 K/uL Nucleated RBC Absolute Count (auto) 0.46 K/uL Nucleated Red Blood Cells % 3.1 % Polychromasia 1+ Basophilic Stippling 1+ Anisocytosis PRESENT Macrocytosis PRESENT Carter-Bison Bodies 1+ Prothrombin Time 12.6 SECONDS Prothromb Time International Ratio 1.2 Activated Partial Thromboplast Time 34.5 SECONDS Partial Thromboplastin Ratio 1.3 Sodium Level 141 mmol/L Potassium Level 4.4 mmol/L Chloride Level 100 mmol/L Carbon Dioxide Level 33 mmol/L Anion Gap 8.0 mmol/L Blood Urea Nitrogen 32 mg/dl Creatinine 5.80 mg/dl Est Creatinine Clear Calc Drug Dose 13.6 ml/min Estimated GFR () 12.1 Estimated GFR (Non- 10.4 BUN/Creatinine Ratio 5.6 Random Glucose 130 mg/dl Calcium Level 7.8 mg/dl Total Bilirubin 0.9 mg/dl Direct Bilirubin mg/dl Aspartate Amino Transf (AST/SGOT) 46 U/L Alanine Aminotransferase (ALT/SGPT) 258 U/L Alkaline Phosphatase 313 U/L Total Creatine Kinase 56 U/L Creatine Kinase MB 1.2 ng/ml Creatine Kinase MB Ratio 2.1 Troponin I 0.187 ng/ml 0.164 ng/ml Total Protein 6.7 gm/dl Albumin 2.4 gm/dl Lipase 175 U/L Chemistry Specimen Hemolysis Imaging: CT scan abdomen/pelvis 03/04/2017: Extensive changes throughout the abdomen and pelvis which appear chronic. Stable abdominal pelvic adenopathy. Stable cirrhotic appearance of the liver. Stable lateral abdominal wall hernia containing bowel loops which is nonobstructive. Mild nonobstructive ileus. No significant change compared to prior study. EKG: Normal sinus rhythm at 87 beats per minute. Right bundle branch block. Assessment & Plan Patient was discussed with Dr. Molina. Mr. Segura has a complex medical history including ESRD on hemodialysis and severe CAD status post 2 vessel bypass and multiple PCIs who was admitted on with acute gastrointestinal bleeding. He was admitted in January 2017 with a non-ST elevation myocardial infarction and cardiac cath demonstrated severe 3 vessel [place] CAD and severe occlusion of [facility]. He was transferred to [facility] to undergo PCI. I do not have records available but he reports a stent was placed (unknown if bare metal or drug eluding). Given his recent coronary stent placement we would ideally continue him on dual antiplatelet therapy in an uninterrupted fashion to prevent stent thrombosis. However, given his current severe gastrointestinal bleeding agree with holding antiplatelet medications. Would recommend restarting antiplatelet therapy as soon as deemed safe by GI. Plavix could be started first as it may be less likely to cause GI irritation. He currently has no anginal type symptoms. His troponin is elevated at 0.164 likely representing demand ischemia secondary to his significant anemia. No evidence of acute CHF on exam. Recommend continuing his other regular cardiac medications as prescribed. Continue hemodialysis per nephrology. Thank you for the consultation, we will continue to follow. The patient was seen and examined by me in conjunction with Ms. Matthews. The patient was seen by me after he had undergone colonoscopy. No Chest pain. No dyspnea. It was felt based on the colonoscopy that he had a lower GI source of bleeding. Currently in the process of being transferred to [facility] in the event he needs interventional radiology services. He is currently electrically and hemodynamically stable. No evidence of heart failure on exam. Agree with transfer. Reinstitute antiplatelet therapy as soon as possible when it is okayed by the GI consultants. Thank you for asking us to see this patient in Cardiology consultation.
[2017-03-05] MEDS: SODIUM CHLORIDE 0.9% 1000ML 1,000 ML IV SCH (15:43)
[2017-03-05] MEDS ORDERED: HYDROmorphone INJ 0.5 MG/0.5 ML SYR IV STA (19:38)
[2017-03-05] MEDS ORDERED: PANTOprazole INJ 40 MG in SYRINGE 0 ML IV SCH (21:00)
== END 2017-03-05 20:14 | disposition short-term general hospital (02) | DRG 377 ==
LOC: C.EDB 17:32 → C.2T 19:26 → ENRESERV 19:34 → C.MSICU 03-05 05:35 → OBSVTOIN 03-05 05:46
PROVIDERS: ADMIT Hospitalist; ATTEND Family Medicine
PROC: 0DJD8ZZ Inspection of Lower Intestinal Tract, Via Natural or Artificial Opening Endoscopic (ICD-10-PCS; principal; 2017-03-05 09:32)
PROC: 0DJ08ZZ Inspection of Upper Intestinal Tract, Via Natural or Artificial Opening Endoscopic (ICD-10-PCS; principal; 2017-03-05 09:32)
DX: K92.2 Gastrointestinal hemorrhage, unspecified (principal); N18.6 End stage renal disease; I50.22 Chronic systolic (congestive) heart failure; I13.2 Hypertensive heart and chronic kidney disease with heart failure and with stage 5 chronic kidney disease, or end stage renal disease; Z94.0 Kidney transplant status; K57.92 Diverticulitis of intestine, part unspecified, without perforation or abscess without bleeding; Z79.82 Long term (current) use of aspirin; Z79.02 Long term (current) use of antithrombotics/antiplatelets; Z82.49 Family history of ischemic heart disease and other diseases of the circulatory system; I25.10 Atherosclerotic heart disease of native coronary artery without angina pectoris; Z95.1 Presence of aortocoronary bypass graft; Z99.2 Dependence on renal dialysis; E78.5 Hyperlipidemia, unspecified; Z79.52 Long term (current) use of systemic steroids; K74.60 Unspecified cirrhosis of liver; K29.70 Gastritis, unspecified, without bleeding

== ENCOUNTER 2017-05-14 21:23 | Emergency (ER) | payer OTHER ==
[~2017-05-14] VITALS: Ht 167.6 cm; Wt 61.4 kg
[~2017-05-14 21:23] MED LIST changes: +DLDI.5 IV; -IMDSR60 PO; +ISOS30TA35 PO; +PANT1INJ2 IV; +[UNRECOGNIZED DRUG - CODE] IV
[2017-05-14 21:27] VITALS: TEMP 37; Ht 167.6 cm; Wt 61.4 kg
[2017-05-14 22:29] LABS: BASO % 0.3 %; BASO ABS # 0.04 K/uL (0-0.2); COMPLETE YES; EOS % 3.9 %; HEMATOCRIT 45.4 % (42-52); IG% 0.2 %; LYMPH % 25.2 %; LYMPH ABS # 3.74 K/uL (1.2-3.4); MEAN CELL VOLUME 95.4 fL (80-100); MEAN CORPUSCULAR HEMOGLOBIN 31.9 pg (25-34); MEAN CORPUSCULAR HGB CONC 33.5 g/dl (32-36); MEAN PLATELET VOLUME 11.2 fL (7.4-10.4); MONO % 14.1 %; NEUT % 56.3 %; PLATELET COUNT 344 K/uL (130-400); RED BLOOD COUNT 4.76 M/uL (4.7-6.1); WHITE BLOOD COUNT 14.83 K/uL (4.8-10.8)
[2017-05-14] MEDS ORDERED: FENTANYL CITRATE INJ 50 MCG/1 ML 2 ML VIAL IV STA (22:49)
[2017-05-14] MEDS ORDERED: ONDANSETRON INJ 2 MG/ML 2 ML VIAL IV STA (23:13)
[2017-05-14 23:22] LABS: ALB/GLOB RATIO 0.5 (0.9-2); ALKALINE PHOSPHATASE 519 U/L (45-117); ALT/SGPT 33 U/L (12-78); BLOOD UREA NITROGEN 27 mg/dl (7-18); BUN/CREATININE RATIO 4.7 (10-20); CALCIUM 9.7 mg/dl (8.5-10.1); CARBON DIOXIDE 33 mmol/L (21-32); CHLORIDE 92 mmol/L (98-107); GLUCOSE 126 mg/dl (70-99); SODIUM 132 mmol/L (136-145)
--- NOTE | 2017-05-14 23:31 | DIAGNOSTIC IMAGING REPORT ---
SINGLE VIEW CHEST CLINICAL HISTORY: Epigastric abdominal pain. FINDINGS: An AP, portable, upright chest radiograph is compared to study dated 02/19/2017. The examination is degraded by portable technique, apical lordotic positioning, and patient rotation. The patient is status post midline sternotomy. The heart is enlarged and there is atherosclerotic calcification of the thoracic aorta. The pulmonary vasculature is noncongested. There is minimal left basilar atelectasis. No airspace consolidation or large pleural effusion is identified. No pneumothorax is identified. The skeletal structures are osteopenic. A benign-appearing sclerotic focus is again seen in the left humeral head. Surgical clips are present in the upper abdomen. IMPRESSION: Cardiomegaly with no acute cardiopulmonary abnormality. Electronically signed by: Neil Don M.D. 05/14/2017 11:30 PM Dictated Date/Time: 05/14/2017 11:29 PM
[2017-05-14 23:49] LABS: POTASSIUM 4.5 mmol/L (3.5-5.1)
--- NOTE | 2017-05-15 | EMERGENCY ROOM VISIT NOTE ---
History First contact with patient: 22:08 Chief Complaint: ABDOMINAL PAIN Stated Complaint: SEVERE ABDOMINAL PAIN Nursing Triage Summary: pt c/o upper abd pain that started today after dialysis History of Present Illness The patient is a 51 year old male who presents to the Emergency Room with complaints of of epigastric and RUQ abdominal pain -Pt has a PMHx significant for ESRD, on dialysis. Pt has also had numerous abdominal surgeries including: kidney transplants, cholecystectomy, hernia repair, exploratory surgery -Pt said that the pain began at noon today following dialysis. -Pt describes the pain as crampy and progressively becoming a constant, sharp pain, 03/04 -Pt feels nauseated, but denies vomiting. Pt denies diarrhea, blood in stool. Pt reports a normal stool at 1 pm today. -Pt reports a recent GI bleed and necrotizing ulcerative disease. -Pt has a PMH of ulcers, hiatal hernia. Last EGD was in February -Pt reports compliance with dialysis -Pt denies fever. Review of Systems see below Constitutional: No fever, No chills, No sweats Respiratory: No cough, No sputum, No wheezing, No shortness of breath Cardiovascular: No chest pain, No edema, No palpitations Abdomen: + pain, + nausea, No vomiting, No diarrhea Genitourinary - Male: No hematuria, No dysuria, No urinary frequency Past Medical/Surgical History Medical Problems: (1) Abdominal pain (2) Acute H. pylori gastric ulcer (3) Acute respiratory failure (4) Anemia (5) Atrial flutter (6) Bacteremia (7) C. difficile colitis (8) CAD (coronary artery disease) (9) Chronic systolic CHF (congestive heart failure) (10) End-stage renal disease on hemodialysis (11) ESRD (end stage renal disease) on dialysis (12) Fever (13) Gastric mass (14) H. pylori infection (15) HTN (hypertension) (16) hx stent placement (17) Immunosuppression (18) Intractable abdominal pain (19) Leukocytosis (20) Liver cirrhosis (21) Lower GI bleed (22) AK (myocardial infarction) (23) NSTEMI (non-ST elevated myocardial infarction) (24) Postoperative wound infection (25) Secondary hyperparathyroidism of renal origin (26) SIRS (systemic inflammatory response syndrome) (27) Syncope Surgical Problems: (1) History of renal transplant (2) History of renal transplant (3) Hx of CABG (4) Hx of cardiac catheterization Family History FH: heart disease Social History Smoking Status: Never Smoker Alcohol Use: none Drug Use: none Marital Status: Housing Status: lives with significant other Occupation Status: employed, disabled Current/Historical Medications Scheduled Atorvastatin (Atorvastatin Calcium), 20 MG PO HS Cinacalcet Hydrochloride (Sensipar), 60 MG PO QAM Clopidogrel Bisulfate (Clopidogrel), 75 MG PO DAILY Isosorbide Mononitrate Ext Rel (Imdur Ext Rel), 15 MG PO BID Metoprolol Succinate (Metoprolol Succinate ER), 50 MG PO BID Nitroglycerin (Nitrostat), 0.4 MG UT PRN Prednisone (Prednisone), 5 MG PO DAILY Sevelamer Carbonate (Renvela), 1,600 MG PO TIDM Vitamin B Cmplx/Vitc/Folic Ac (Nephrocaps), 1 CAP PO DAILY Vitamin E (Vitamin E), 400 UNIT PO DAILY Scheduled PRN Mupirocin (Bactroban 2% Oint), 1 APPLN JENN BID PRN for sore Oxycodone Ir (Roxicodone Ir), 5 MG PO Q4H PRN for Severe Pain Physical Exam Vital Signs Date Time Temp Pulse Resp B/P (MAP) Pulse Ox O2 Delivery O2 Flow Rate FiO2 05/15/17 03:37 77 16 123/70 98 05/15/17 02:23 97 22 94 05/15/17 02:10 100 05/15/17 02:02 104/71 05/15/17 01:23 99 22 94 05/15/17 01:02 136/87 05/15/17 01:01 94 142/85 92 05/15/17 00:23 94 21 95 05/14/17 23:23 95 19 95 05/14/17 23:11 97 170/86 97 Room Air 05/14/17 23:02 170/86 05/14/17 22:23 94 21 98 05/14/17 22:15 91 05/14/17 22:12 158/88 05/14/17 22:10 96 158/88 95 Room Air 05/14/17 21:27 37.0 99 20 158/99 98 Room Air Physical Exam see below General Appearance: WD/WN, + mild distress Head: normocephalic, atraumatic Neck: supple, no adenopathy, thyroid normal Respiratory/Chest: chest non-tender, lungs clear, normal breath sounds, no respiratory distress, no accessory muscle use Cardiovascular: regular rate, rhythm, no edema, no gallop, no JVD Abdomen / GI: + tenderness (RUQ tenderness and grimacing with palpation), + abnormal bowel sounds (hypoactive bowel sounds) Neurologic/Psych: alert, normal mood/affect, oriented x 3 Medical Decision & Procedures ER Provider Diagnostic Interpretation: SINGLE VIEW CHEST CLINICAL HISTORY: Epigastric abdominal pain. FINDINGS: An AP, portable, upright chest radiograph is compared to study dated 02/19/2017. The examination is degraded by portable technique, apical lordotic positioning, and patient rotation. The patient is status post midline sternotomy. The heart is enlarged and there is atherosclerotic calcification of the thoracic aorta. The pulmonary vasculature is noncongested. There is minimal left basilar atelectasis. No airspace consolidation or large pleural effusion is identified. No pneumothorax is identified. The skeletal structures are osteopenic. A benign-appearing sclerotic focus is again seen in the left humeral head. Surgical clips are present in the upper abdomen. IMPRESSION: Cardiomegaly with no acute cardiopulmonary abnormality. Electronically signed by: Neil Don M.D. 05/14/2017 11:30 PM Dictated Date/Time: 05/14/2017 11:29 PM Laboratory Results 05/14/17 21:50 Red Blood Count 4.76, Mean Corpuscular Volume 95.4, Mean Corpuscular Hemoglobin 31.9, Mean Corpuscular Hemoglobin Concent 33.5, Mean Platelet Volume 11.2, Neutrophils (%) (Auto) 56.3, Lymphocytes (%) (Auto) 25.2, Monocytes (%) (Auto) 14.1, Eosinophils (%) (Auto) 3.9, Basophils (%) (Auto) 0.3, Neutrophils # (Auto ) 8.35, Lymphocytes # (Auto) 3.74, Monocytes # (Auto) 2.09, Eosinophils # (Auto ) 0.58, Basophils # (Auto) 0.04 05/14/17 21:50 05/14/17 23:29 Test 05/14/17 21:50 05/14/17 23:11 05/14/17 23:29 05/15/17 01:47 White Blood Count 14.83 K/uL (4.8-10.8) Red Blood Count 4.76 M/uL (4.7-6.1) Hemoglobin 15.2 g/dL (14.0-18.0) Hematocrit 45.4 % (42-52) Mean Corpuscular Volume 95.4 fL (80-100) Mean Corpuscular Hemoglobin 31.9 pg (25-34) Mean Corpuscular Hemoglobin Concent 33.5 g/dl (32-36) Platelet Count 344 K/uL (130-400) Mean Platelet Volume 11.2 fL (7.4-10.4) Neutrophils (%) (Auto) 56.3 % Lymphocytes (%) (Auto) 25.2 % Monocytes (%) (Auto) 14.1 % Eosinophils (%) (Auto) 3.9 % Basophils (%) (Auto) 0.3 % Neutrophils # (Auto) 8.35 K/uL (1.4-6.5) Lymphocytes # (Auto) 3.74 K/uL (1.2-3.4) Monocytes # (Auto) 2.09 K/uL (0.11-0.59) Eosinophils # (Auto) 0.58 K/uL (0-0.5) Basophils # (Auto) 0.04 K/uL (0-0.2) RDW Standard Deviation 65.0 fL (36.4-46.3) RDW Coefficient of Variation 18.6 % (11.5-14.5) Immature Granulocyte % (Auto) 0.2 % Immature Granulocyte # (Auto) 0.03 K/uL (0.00-0.02) Anion Gap 7.0 mmol/L (3-11) Est Creatinine Clear Calc Drug Dose 13.2 ml/min Estimated GFR () 12.1 Estimated GFR (Non- 10.4 BUN/Creatinine Ratio 4.7 (10-20) Calcium Level 9.7 mg/dl (8.5-10.1) Total Bilirubin 0.9 mg/dl (0.2-1) Alanine Aminotransferase (ALT/SGPT) 33 U/L (12-78) Alkaline Phosphatase 519 U/L (45-117) Total Protein 9.4 gm/dl (6.4-8.2) Albumin 3.3 gm/dl (3.4-5.0) Globulin 6.1 gm/dl (2.5-4.0) Albumin/Globulin Ratio 0.5 (0.9-2) Lipase 173 U/L (73-393) Lactic Acid Level 2.1 mmol/L (0.4-2.0) Direct Bilirubin 0.3 mg/dl (0-0.2) Aspartate Amino Transf (AST/SGOT) 29 U/L (15-37) Troponin I 0.044 ng/ml (0-0.045) Medications Administered Medications (Trade) Dose Ordered Sig/Amanda Route Start Time Stop Time Status Last Admin Dose Admin Fentanyl Citrate (Fentanyl Inj) 50 mcg NOW STAT IV 05/14/17 22:49 05/14/17 22:53 DC 05/14/17 23:06 50 MCG Ondansetron HCl (Zofran Inj) 4 mg NOW STAT IV 05/14/17 23:13 05/14/17 23:14 DC 05/14/17 23:19 4 MG Oxycodone HCl (Roxicodone Immediate Rel Tab) 5 mg NOW STAT PO 05/15/17 02:10 05/15/17 02:14 DC 05/15/17 02:40 5 MG Famotidine 20 mg/ Dextrose 102 ml @ 200 mls/hr Q12H STAT IV 05/15/17 02:10 05/15/17 02:40 DC 05/15/17 02:43 200 MLS/HR Al Hydroxide/Mg Hydroxide (Maalox Susp) 30 ml STK-MED ONCE .ROUTE 05/15/17 02:38 05/15/17 02:39 DC 05/15/17 02:38 30 ML Lidocaine HCl (Viscous Lidocaine 2% Soln) 20 ml STK-MED ONCE .ROUTE 05/15/17 02:38 05/15/17 02:39 DC 05/15/17 02:38 20 ML ED Course 22:30 History and physical performed 2245 Order Zofran, Fentanyl 2344 Reviewed labs: pt has lactate 2.1, WBC 14.83, ALP 519 2350 Reaccessed patient. Pt's pain has decreased. [address] abdomen and Pelvis w/o contrast 130 reviewed result 145 Pt given Falguni IR, GI cocktail 200 Pt discharged home Medical Decision 51 M presents to the ED with RUQ and epigastric pain Considering the following differential: Perforated ulcer, small bowel obstruction, ileus, pancreatitis, gastritis, acute coronary syndrome Patient pain was severe when arriving to the ED. Pt denies blood stool. Pt has ESRD and is compliant on dialysis. Pt's K was 4.5. Pt has a lactate of 2.1 and WBC of 14.83, ALP of 519. Aside from the elevated ALP, these abnormal findings appear to be the baseline when comparing to previous hospitalization. Abdominal CT did not show any acute pathology explaining patients pain Pt with ESRD with abdominal pain is concerning of uremia. First action was to obtain ECG and to evaluate electrolytes. ECG was normal sinus rhythm, comparable to February ECG, with the exception of new nonspecific L axis changes. Troponins remained stable x2. Pt began to feel better on pain and GI cocktail. Pt's remained stable throughout ED course. Pt was appropriate for discharge. Pt should follow up with GI specialist and PCP regarding ED visit. Impression Primary Impression: Gastritis Additional Impression: Abdominal pain Departure Information Dispostion Home / Self-Care Referrals Todd Azevedo M.D. (PCP) Patient Instructions [facility] Additional Instructions Mr. Segura you came into the ED with abdominal pain. Throughout your ED visit we did some labs, test and imaging to find potential causes of your pain. We compared these labs to your labs from previous hospitalizations. While some of your labs were abnormal, this is likely due to your kidney disease. You were also evaluated with a abdominal CT which was unremarkable. ECG was unremarkable, although it did show some subtle changes from previous ECG in February. Your cardiac enzymes, which can demonstrate damage to the heart, remained steady and were not elevated, which is good. Nonetheless, we recommend that you follow up with your experience specialist. In addition, we recommend that you follow up with your GI specialist. While our investigations did not find a root cause, you would benefit from an outpatient work up. If the pain does not subside or if you experience more serious symptoms and fever, please follow up with the emergency department. Problem Qualifiers
--- NOTE | 2017-05-15 01:13 | DIAGNOSTIC IMAGING REPORT ---
CT SCAN OF THE ABDOMEN AND PELVIS WITHOUT IV CONTRAST CLINICAL HISTORY: Epigastric abdominal pain. COMPARISON STUDY: Prior abdominal CT scans, most recently dated 03/04/2017. TECHNIQUE: CT scan of the abdomen and pelvis is performed from the lung bases to the proximal femora. Images are reviewed in the axial, sagittal, and coronal planes. IV contrast was not administered for this examination as per the referring clinician. Note that the examination was performed and significant suboptimal fashion without oral and IV contrast. A dose lowering technique was utilized adhering to the principles of ALARA. CT DOSE: 265.40 mGy.cm FINDINGS: Lung bases: The heart is markedly enlarged and without pericardial effusion. The coronary arteries are densely calcified. There is calcification of the right ventricular wall as well as the interventricular septum, similar to previous. A 3 mm pulmonary nodule is again seen at the left lung base on image #40. There is no airspace consolidation or pleural effusion. There is a small hiatal hernia. Liver: The unenhanced liver is cirrhotic in morphology and markedly heterogeneous in attenuation. There is nodularity of the surface contour. Hyperdense material is again seen along the inferior right lobe of the liver and along the left lobe of the liver. There is no intrahepatic biliary ductal dilatation. Gallbladder: Surgically absent. Spleen: Not identified and presumed surgically absent. Pancreas: There is near complete fatty atrophy of the pancreas. Adrenal glands: Unremarkable. Kidneys: The [place] kidneys are surgically absent. 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 Both transplants are markedly atrophic. The right pelvic transplant is calcified and there is mild surrounding stranding. Abdominal vasculature: There is advanced atherosclerotic calcification of the abdominal aorta. Stents are likely present within the external iliac arteries. There is likely thrombosis of the right common iliac artery. Bowel: There is a large hernia in the right lower quadrant abdominal wall which contains loops of small bowel and colon. No bowel obstruction is seen. There is mild colonic diverticulosis without CT evidence of acute diverticulitis. The appendix is well-visualized and normal. Peritoneum: No intraperitoneal free air or abdominal ascites is seen. Mild peritoneal nodularity below the right lobe of liver seen on image #153 similar to previous. Lymphadenopathy: Again seen is retroperitoneal and iliac chain lymphadenopathy. Retroperitoneal nodes measure up to 1.5 cm in short axis as seen on axial image #145. This is similar to the 03/04/2017 examination. Pelvic viscera: The bladder is decompressed and not well evaluated. The prostate gland and seminal vesicles are normal as imaged. Skeletal structures: The skeletal structures are osteopenic. There is a moderate compression deformity of T12. No lytic or blastic lesions are seen. IMPRESSION: 1. Suboptimal examination without oral and IV contrast. 2. No acute infectious or inflammatory findings are clearly seen. Extensive chronic changes are discussed above. 3. Cirrhotic liver morphology. 4. The [place] kidneys and spleen are surgically absent. 5. Retroperitoneal and iliac chain lymphadenopathy is similar to previous. 6. Bilateral pelvic renal transplant are markedly atrophic. Mild stranding around the right pelvic transplant is nonspecific and unchanged from prior studies. 7. There is unchanged appearance of a large hernia in the right lower quadrant abdominal wall containing nonobstructed loops of small bowel and colon. 8. Additional findings as above. Electronically signed by: Neil Don M.D. 05/15/2017 1:11 AM Dictated Date/Time: 05/15/2017 12:59 AM Electronically signed by: Neil Don M.D. 05/15/2017 1:12 AM Dictated Date/Time: 05/15/2017 12:59 AM
[2017-05-15] MEDS ORDERED: FAMOTIDINE IV INJ 20 MG in DEXTROSE 5% 100ML 100 ML IV STA (02:10)
[2017-05-15] MEDS ORDERED: OXYCODONE HCL IR 5 MG TAB (IMMEDIATE RELEASE) PO STA (02:10)
[2017-05-15] MEDS ORDERED: GI COCKTAIL PO STA (02:10)
[2017-05-15] MEDS ORDERED: ALUMINUM/MAGNESIUM SUSP 30 ML UDC ONE (02:38)
[2017-05-15] MEDS ORDERED: LIDOCAINE HCL 2% VISC SOLN 20 ML UDC ONE (02:38)
--- NOTE | 2017-05-15 02:44 | EMERGENCY ROOM VISIT NOTE ---
History Report prepared by Craig: Jaimie Sadler Under the Supervision of: Dr. Johnny Osborn M.D. First contact with patient: 22:08 Chief Complaint: ABDOMINAL PAIN Stated Complaint: SEVERE ABDOMINAL PAIN Nursing Triage Summary: pt c/o upper abd pain that started today after dialysis History of Present Illness The patient is a 51 year old male who presents to the Emergency Room with complaints of worsening abdominal pain starting around 1200 today. The patient has a history of end stage renal disease, ulcers, cholecystectomy, splenectomy, and hernia. Around 1200 today, the patient started having epigastric and RUQ abdominal pain after returning home from dialysis. The pain started as a cramping pain, but is now sharp. The pain has gotten gradually worse through the day. He has never had this before. He had a bowel movement around 1300 today which was normal and without blood. He reports some nausea. He has been having some sinus drainage. He denies any chest pain, SOB, vomiting, fever, chills, diarrhea, or bloody stools. He denies missing dialysis recently. He no longer urinates. He has had failed kidney transplant. He had a necrotic ulcer 2 months ago. He received his flu shot. Source of History: patient Onset: 1200 Position: abdomen (RUQ) Quality: sharp, cramping Timing: worsening Associated Symptoms: + nausea, No fevers, No chills, No chest pain, No SOB, No vomiting, No hematochezia, No diarrhea Review of Systems See HPI for pertinent positives and negatives. A total of ten systems were reviewed and were otherwise negative. Past Medical & Surgical Medical Problems: (1) Abdominal pain (2) Acute H. pylori gastric ulcer (3) Acute respiratory failure (4) Anemia (5) Atrial flutter (6) Bacteremia (7) C. difficile colitis (8) CAD (coronary artery disease) (9) Chronic systolic CHF (congestive heart failure) (10) End-stage renal disease on hemodialysis (11) ESRD (end stage renal disease) on dialysis (12) Fever (13) Gastric mass (14) H. pylori infection (15) HTN (hypertension) (16) hx stent placement (17) Immunosuppression (18) Intractable abdominal pain (19) Leukocytosis (20) Liver cirrhosis (21) Lower GI bleed (22) ND (myocardial infarction) (23) NSTEMI (non-ST elevated myocardial infarction) (24) Postoperative wound infection (25) Secondary hyperparathyroidism of renal origin (26) SIRS (systemic inflammatory response syndrome) (27) Syncope Surgical Problems: (1) History of renal transplant (2) History of renal transplant (3) Hx of CABG (4) Hx of cardiac catheterization Family History FH: heart disease Social History Smoking Status: Never Smoker Alcohol Use: none Drug Use: none Marital Status: Housing Status: lives with significant other Occupation Status: employed, disabled Current/Historical Medications Scheduled Atorvastatin (Atorvastatin Calcium), 20 MG PO HS Cinacalcet Hydrochloride (Sensipar), 60 MG PO QAM Clopidogrel Bisulfate (Clopidogrel), 75 MG PO DAILY Isosorbide Mononitrate Ext Rel (Imdur Ext Rel), 15 MG PO BID Metoprolol Succinate (Metoprolol Succinate ER), 50 MG PO BID Nitroglycerin (Nitrostat), 0.4 MG UT PRN Prednisone (Prednisone), 5 MG PO DAILY Sevelamer Carbonate (Renvela), 1,600 MG PO TIDM Vitamin B Cmplx/Vitc/Folic Ac (Nephrocaps), 1 CAP PO DAILY Vitamin E (Vitamin E), 400 UNIT PO DAILY Scheduled PRN Mupirocin (Bactroban 2% Oint), 1 APPLN JENN BID PRN for sore Oxycodone Ir (Roxicodone Ir), 5 MG PO Q4H PRN for Severe Pain Allergies Coded Allergies: POLLEN (Verified Allergy, Unknown, "HAYFEVER", 05/14/17) Diazoxide (Verified Adverse Reaction, Intermediate, ELEVATE BP;N&V, ) NSAIDs (Verified Adverse Reaction, Unknown, KIDNEY TRANSPLANT, 05/14/17) Physical Exam Vital Signs Date Time Temp Pulse Resp B/P (MAP) Pulse Ox O2 Delivery O2 Flow Rate FiO2 05/15/17 03:37 77 16 123/70 98 05/15/17 02:23 97 22 94 05/15/17 02:10 100 05/15/17 02:02 104/71 05/15/17 01:23 99 22 94 05/15/17 01:02 136/87 05/15/17 01:01 94 142/85 92 05/15/17 00:23 94 21 95 05/14/17 23:23 95 19 95 05/14/17 23:11 97 170/86 97 Room Air 05/14/17 23:02 170/86 05/14/17 22:23 94 21 98 05/14/17 22:15 91 05/14/17 22:12 158/88 05/14/17 22:10 96 158/88 95 Room Air 05/14/17 21:27 37.0 99 20 158/99 98 Room Air Physical Exam GENERAL: Awake, alert, appearing fatigued and uncomfortable, in no acute distress HENT: Normocephalic, atraumatic. Dry mucous membranes. EYES: Normal conjunctiva. Sclera non-icteric. NECK: Supple. No nuchal rigidity. FROM. No JVD. RESPIRATORY: Clear to auscultation. CARDIAC: Regular rate, normal rhythm. Extremities warm and well perfused. Pulses equal. ABDOMEN: Soft, non-distended. Mild epigastric tenderness to palpation. No peritoneal signs. No rebound or guarding. No masses. RECTAL: Deferred. MUSCULOSKELETAL: Chest examination reveals no tenderness. The back is symmetrical on inspection without obvious abnormality. There is no CVA tenderness to palpation. No joint edema. Palpable thrill left AV fistula. LOWER EXTREMITIES: Calves are equal size bilaterally and non-tender. No edema. No discoloration. NEURO: Normal sensorium. No sensory or motor deficits noted. SKIN: No rash or jaundice noted. Medical Decision & Procedures ER Provider Diagnostic Interpretation: Radiology results as stated below per my review and radiologist interpretation: SINGLE VIEW CHEST CLINICAL HISTORY: Epigastric abdominal pain. FINDINGS: An AP, portable, upright chest radiograph is compared to study dated 02/19/2017. The examination is degraded by portable technique, apical lordotic positioning, and patient rotation. The patient is status post midline sternotomy. The heart is enlarged and there is atherosclerotic calcification of the thoracic aorta. The pulmonary vasculature is noncongested. There is minimal left basilar atelectasis. No airspace consolidation or large pleural effusion is identified. No pneumothorax is identified. The skeletal structures are osteopenic. A benign-appearing sclerotic focus is again seen in the left humeral head. Surgical clips are present in the upper abdomen. IMPRESSION: Cardiomegaly with no acute cardiopulmonary abnormality. Electronically signed by: Neil Don M.D. 05/14/2017 11:30 PM Dictated Date/Time: 05/14/2017 11:[address] SCAN OF THE ABDOMEN AND PELVIS WITHOUT IV CONTRAST CLINICAL HISTORY: Epigastric abdominal pain. COMPARISON STUDY: Prior abdominal CT scans, most recently dated 03/04/2017. TECHNIQUE: CT scan of the abdomen and pelvis is performed from the lung bases to the proximal femora. Images are reviewed in the axial, sagittal, and coronal planes. IV contrast was not administered for this examination as per the referring clinician. Note that the examination was performed and significant suboptimal fashion without oral and IV contrast. A dose lowering technique was utilized adhering to the principles of ALARA. CT DOSE: 265.40 mGy.cm FINDINGS: Lung bases: The heart is markedly enlarged and without pericardial effusion. The coronary arteries are densely calcified. There is calcification of the right ventricular wall as well as the interventricular septum, similar to previous. A 3 mm pulmonary nodule is again seen at the left lung base on image #40. There is no airspace consolidation or pleural effusion. There is a small hiatal hernia. Liver: The unenhanced liver is cirrhotic in morphology and markedly heterogeneous in attenuation. There is nodularity of the surface contour. Hyperdense material is again seen along the inferior right lobe of the liver and along the left lobe of the liver. There is no intrahepatic biliary ductal dilatation. Gallbladder: Surgically absent. Spleen: Not identified and presumed surgically absent. Pancreas: There is near complete fatty atrophy of the pancreas. Adrenal glands: Unremarkable. Kidneys: The [place] kidneys are surgically absent. 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 Both transplants are markedly atrophic. The right pelvic transplant is calcified and there is mild surrounding stranding. Abdominal vasculature: There is advanced atherosclerotic calcification of the abdominal aorta. Stents are likely present within the external iliac arteries. There is likely thrombosis of the right common iliac artery. Bowel: There is a large hernia in the right lower quadrant abdominal wall which contains loops of small bowel and colon. No bowel obstruction is seen. There is mild colonic diverticulosis without CT evidence of acute diverticulitis. The appendix is well-visualized and normal. Peritoneum: No intraperitoneal free air or abdominal ascites is seen. Mild peritoneal nodularity below the right lobe of liver seen on image #153 similar to previous. Lymphadenopathy: Again seen is retroperitoneal and iliac chain lymphadenopathy. Retroperitoneal nodes measure up to 1.5 cm in short axis as seen on axial image #145. This is similar to the 03/04/2017 examination. Pelvic viscera: The bladder is decompressed and not well evaluated. The prostate gland and seminal vesicles are normal as imaged. Skeletal structures: The skeletal structures are osteopenic. There is a moderate compression deformity of T12. No lytic or blastic lesions are seen. IMPRESSION: 1. Suboptimal examination without oral and IV contrast. 2. No acute infectious or inflammatory findings are clearly seen. Extensive chronic changes are discussed above. 3. Cirrhotic liver morphology. 4. The [place] kidneys and spleen are surgically absent. 5. Retroperitoneal and iliac chain lymphadenopathy is similar to previous. 6. Bilateral pelvic renal transplant are markedly atrophic. Mild stranding around the right pelvic transplant is nonspecific and unchanged from prior studies. 7. There is unchanged appearance of a large hernia in the right lower quadrant abdominal wall containing nonobstructed loops of small bowel and colon. 8. Additional findings as above. Electronically signed by: Neil Don M.D. 05/15/2017 1:11 AM Dictated Date/Time: 05/15/2017 12:59 AM Electronically signed by: Neil Don M.D. 05/15/2017 1:12 AM Dictated Date/Time: 05/15/2017 12:59 AM Laboratory Results 05/14/17 21:50 Red Blood Count 4.76, Mean Corpuscular Volume 95.4, Mean Corpuscular Hemoglobin 31.9, Mean Corpuscular Hemoglobin Concent 33.5, Mean Platelet Volume 11.2, Neutrophils (%) (Auto) 56.3, Lymphocytes (%) (Auto) 25.2, Monocytes (%) (Auto) 14.1, Eosinophils (%) (Auto) 3.9, Basophils (%) (Auto) 0.3, Neutrophils # (Auto ) 8.35, Lymphocytes # (Auto) 3.74, Monocytes # (Auto) 2.09, Eosinophils # (Auto ) 0.58, Basophils # (Auto) 0.04 05/14/17 21:50 05/14/17 23:29 Test 05/14/17 21:50 05/14/17 23:11 05/14/17 23:29 05/15/17 01:47 White Blood Count 14.83 K/uL (4.8-10.8) Red Blood Count 4.76 M/uL (4.7-6.1) Hemoglobin 15.2 g/dL (14.0-18.0) Hematocrit 45.4 % (42-52) Mean Corpuscular Volume 95.4 fL (80-100) Mean Corpuscular Hemoglobin 31.9 pg (25-34) Mean Corpuscular Hemoglobin Concent 33.5 g/dl (32-36) Platelet Count 344 K/uL (130-400) Mean Platelet Volume 11.2 fL (7.4-10.4) Neutrophils (%) (Auto) 56.3 % Lymphocytes (%) (Auto) 25.2 % Monocytes (%) (Auto) 14.1 % Eosinophils (%) (Auto) 3.9 % Basophils (%) (Auto) 0.3 % Neutrophils # (Auto) 8.35 K/uL (1.4-6.5) Lymphocytes # (Auto) 3.74 K/uL (1.2-3.4) Monocytes # (Auto) 2.09 K/uL (0.11-0.59) Eosinophils # (Auto) 0.58 K/uL (0-0.5) Basophils # (Auto) 0.04 K/uL (0-0.2) RDW Standard Deviation 65.0 fL (36.4-46.3) RDW Coefficient of Variation 18.6 % (11.5-14.5) Immature Granulocyte % (Auto) 0.2 % Immature Granulocyte # (Auto) 0.03 K/uL (0.00-0.02) Anion Gap 7.0 mmol/L (3-11) Est Creatinine Clear Calc Drug Dose 13.2 ml/min Estimated GFR () 12.1 Estimated GFR (Non- 10.4 BUN/Creatinine Ratio 4.7 (10-20) Calcium Level 9.7 mg/dl (8.5-10.1) Total Bilirubin 0.9 mg/dl (0.2-1) Alanine Aminotransferase (ALT/SGPT) 33 U/L (12-78) Alkaline Phosphatase 519 U/L (45-117) Total Protein 9.4 gm/dl (6.4-8.2) Albumin 3.3 gm/dl (3.4-5.0) Globulin 6.1 gm/dl (2.5-4.0) Albumin/Globulin Ratio 0.5 (0.9-2) Lipase 173 U/L (73-393) Lactic Acid Level 2.1 mmol/L (0.4-2.0) Direct Bilirubin 0.3 mg/dl (0-0.2) Aspartate Amino Transf (AST/SGOT) 29 U/L (15-37) Troponin I 0.044 ng/ml (0-0.045) Laboratory results reviewed by me Medications Administered Medications (Trade) Dose Ordered Sig/Amanda Route Start Time Stop Time Status Last Admin Dose Admin Fentanyl Citrate (Fentanyl Inj) 50 mcg NOW STAT IV 05/14/17 22:49 05/14/17 22:53 DC 05/14/17 23:06 50 MCG Ondansetron HCl (Zofran Inj) 4 mg NOW STAT IV 05/14/17 23:13 05/14/17 23:14 DC 05/14/17 23:19 4 MG Oxycodone HCl (Roxicodone Immediate Rel Tab) 5 mg NOW STAT PO 05/15/17 02:10 05/15/17 02:14 DC 05/15/17 02:40 5 MG Famotidine 20 mg/ Dextrose 102 ml @ 200 mls/hr Q12H STAT IV 05/15/17 02:10 05/15/17 02:40 DC 05/15/17 02:43 200 MLS/HR Al Hydroxide/Mg Hydroxide (Maalox Susp) 30 ml STK-MED ONCE .ROUTE 05/15/17 02:38 05/15/17 02:39 DC 05/15/17 02:38 30 ML Lidocaine HCl (Viscous Lidocaine 2% Soln) 20 ml STK-MED ONCE .ROUTE 05/15/17 02:38 05/15/17 02:39 DC 05/15/17 02:38 20 ML ECG Indication: abdominal pain Rate (beats per minute): 93 Rhythm: normal sinus Findings: nonspecific-ST abn (aVF), left axis deviation Comparison ECG Date: 04-Mar-2017 Change: ST abnormality is new. ED Course 9: Fentanyl Citrate 50 mcg IV. 2307: The patient was evaluated in room C1B. A complete history and physical exam was performed. 2313: Zofran Inj 4 mg IV. 0210: Famotidine 20 mg/Dextrose 102 ml @ 200 mls/hr IV, Oxycodone HCl 5 mg PO. 0238: Lidocaine HCl 20 ml PO, Maalox Susp 30 ml PO. Medical Decision I reviewed the patient's past medical history, medications, and the nursing notes as described above. Differential diagnosis: pneumonia, bronchitis, gastroenteritis, gastritis, ACS, dehydration, electrolyte abnormality, bowel obstruction, peptic ulcer. The patient is a 51-year-old gentleman with a past medical history of end-stage renal disease in the setting of failed kidney transplants, h/o GIB, CHF presents emergency Department with abdominal pain and nausea after having dialysis per history of present illness. Arrival the patient appears uncomfortable but in no acute distress. He is afebrile with stable vital signs. WBC 14 however improved from recent. AP marginally elevated but approximate to recent. Troponin marginally elevated at 0.38-0.4 and improved from his chronic elevated troponin Activity 2.1 however in the setting of this patient with ESRD downtrending WBC likely significant. The patient does appear to have a chronically mildly elevated lactate as well. Labs otherwise unremarkable CT of the abdomen and pelvis limited without contrast however unremarkable. Chest x-ray negative for pneumonia. Given reassuring workup thus far and potentially may be discharged with outpatient follow-up. The patient's majority of symptoms are epigastric in nature may be related to a gastritis. Thus we'll reassess after Pepcid and GI cocktail. Patient improved after GI cocktail. Requesting d/c. Plan for pcp f/u, patient agreeable and d/c'd per discharge instructions. I reviewed the patient's past medical history, medications, and visit nursing notes. I discussed the case with the resident physician, examined the patient, and agree with the findings and plan as documented in the residents note unless otherwise clarified here by me. Medication Reconcilliation Current Medication List: was personally reviewed by me Blood Pressure Screening Patient's blood pressure: Elevated blood pressure Blood pressure disposition: Referred to PCP Impression Primary Impression: Abdominal pain Additional Impression: Gastritis Scribe Attestation The scribe's documentation has been prepared under my direction and personally reviewed by me in its entirety. I confirm that the note above accurately reflects all work, treatment, procedures, and medical decision making performed by me. Departure Information Referrals No Doctor, Assigned (PCP) Patient Instructions [facility] Problem Qualifiers
[2017-05-15 03:37] VITALS: BP 123/70; PULSE 77; O2SAT 98
== END 2017-05-15 03:30 | disposition home or self-care (01) ==
LOC: C.EDB 21:25 → C.EDC 05-15 03:30
DX: R10.9 Unspecified abdominal pain (principal); K29.70 Gastritis, unspecified, without bleeding; D64.9 Anemia, unspecified; I48.91 Unspecified atrial fibrillation; I25.10 Atherosclerotic heart disease of native coronary artery without angina pectoris; I50.9 Heart failure, unspecified; N18.6 End stage renal disease; Z99.2 Dependence on renal dialysis; I25.2 Old myocardial infarction; I21.4 Non-ST elevation (NSTEMI) myocardial infarction; Z82.49 Family history of ischemic heart disease and other diseases of the circulatory system

== ENCOUNTER → 2017-06-30 | Day surgery (SDC) | payer OTHER ==
[2017-06-24 12:45] VITALS: BMI 22.0
[~2017-06-30] VITALS: Ht 167.6 cm; Wt 63.6 kg
[~2017-06-30] MED LIST changes: -ASPI81TA28 PO; -DLDI.5 IV; -PANT1INJ2 IV; +PANT40TA PO; -PRT/40 PO; -[UNRECOGNIZED DRUG - CODE] IV
[2017-06-30 15:00] VITALS: Ht 167.6 cm; Wt 63.6 kg
[2017-06-30 15:12] VITALS: BP 172/86; PULSE 91; TEMP 37; O2SAT 97
--- NOTE | 2017-06-30 15:16 | Endo History and Physical ---
History & Physical Date of Service: Jun 30, 2017. Chief Complaint: rectal bleeding Referring Physician: Dr. Azevedo History of Present Illness 51 yo CM who presents for colonoscopy secondary to rectal bleeding. Past Medical History Angioplasty/Stent, Arthritis, Reflux, High Cholesterol, CHF, Hypertension, Thrombophlebitis, Kidney Disease, [place] Past Surgical History Hx Cardiac Surgery: Yes (MULTIPLE HEART CATHS, MULTPILE STENTS; CABG X3 VESSELS ) Hx Internal Defibrillator: No Hx Pacemaker: No Hx Abdominal Surgery: Yes (HOANG) Hx of Implantable Prosthesis: No Hx Post-Op Nausea and Vomiting: No Hx Cancer Surgery: No Hx Thoracic Surgery: No Hx Orthopedic: Yes (LT WRIST SURGERY) Hx Urinary Tract Surgery: Yes (BLT NEPHRECTOMY AND TRANSPLANTS X3) Family History None Social History Smoking Status: Never Smoker Hx Substance Use: No Hx Alcohol Use: No Allergies Coded Allergies: POLLEN (Verified Allergy, Unknown, "HAYFEVER", 06/30/17) Diazoxide (Verified Adverse Reaction, Intermediate, ELEVATE BP;N&V, ) NSAIDs (Verified Adverse Reaction, Unknown, KIDNEY TRANSPLANT, 06/30/17) Current Medications Reported Home Medications Medications Dose Route/Sig Max Daily Dose Days Date Category Dose Instructions Protonix (Pantoprazole Sodium) 40 Mg Tab 40 Mg PO QPM 06/24/17 Reported Imdur Ext Rel (Isosorbide Mononitrate) 30 Mg Tabcr 15 Mg PO BID 03/04/17 Reported HALF OF A 30 MG TABLET. Bactroban 2% Oint (Mupirocin) 66 Appln/22 Gm Oint 1 Appln JENN BID PRN 02/19/17 Reported APPLY SMALL AMOUNT TO INSIDE OF NOSTRILS TWICE DAILY Roxicodone Ir (Oxycodone HCl) 5 Mg Tab 5 Mg PO Q4H PRN 12/11/16 Reported Nitrostat (Nitroglycerin) 0.4 Mg Tab 0.4 Mg UT PRN 12/11/16 Reported NEEDED FOR CHEST PAIN : ONE TABLET UNDER THE TONGUE EVERY 5 MINUTES UP TO 3 DOSES. Prednisone 5 Mg Tab 5 Mg PO DAILY 11/18/16 Reported Metoprolol Succinate ER (Metoprolol Succinate) 100 Mg Tabcr 50 Mg PO BID 11/18/16 Reported Renvela (Sevelamer Carbonate) 800 Mg Tab 1,600 Mg PO TIDM 11/18/16 Reported Vitamin E 400 Unit Tab 400 Unit PO DAILY 11/18/16 Reported Nephrocaps (Vitamin B Complex/Vit C/Folic Acid) Cap 1 Cap PO DAILY 08/13/16 Reported Clopidogrel (Clopidogrel Bisulfate) 75 Mg Tab 75 Mg PO DAILY 08/13/16 Reported Atorvastatin Calcium (Atorvastatin) 20 Mg Tab 20 Mg PO HS 08/13/16 Reported Sensipar (Cinacalcet) 30 Mg Tab 60 Mg PO QPM 08/13/16 Reported Vital Signs Weight (Kilograms): 63.64 Height (Feet): 5 Height (Inches): 6 Date Time Temp Pulse Resp B/P (MAP) Pulse Ox O2 Delivery O2 Flow Rate FiO2 06/30/17 15:12 37 91 18 172/86 (114) 97 Room Air Physical Exam General Appearance: WD/WN, no apparent distress Respiratory/Chest: Auscultation: breath sounds normal Cardiovascular: Heart Auscultation: RRR Abdomen: Bowel Sounds: normal Inspection & Palpation: soft, non-distended, no tenderness, guarding & rebound Assessment and Plan Assessment: 51 yo CM who presents for colonoscopy secondary to rectal bleeding. Plan: Proceed with colonoscopy.
[2017-06-30 15:58] LABS: ISTAT CREATININE 9.9 mg/dl (0.6-1.3); ISTAT HEMOGLOBIN 11.9 g/dl (14.0-18.0); ISTAT IONIZED CALCIUM 0.92 mmol/l (1.12-1.32)
--- NOTE | 2017-06-30 16:23 | Anesthesiology Progress Note ---
Anesthesia Progress Note Date of Service Jun 30, 2017. Progress Notes The patient is a 51 y/o male scheduled for a colonoscopy today. He was last dialyzed on the morning of 06/28/17. He did not undergo dialysis this morning due to concerns of hypotension and is scheduled for dialysis at 0600 tomorrow morning. The patient's potassium was checked today in the preoperative area and found to be 6.1. Due to the risk of worsening his hyperkalemia with sedation, Dr. Sibley agreed that the case should be cancelled and scheduled at a future date. I called Dr. Azevedo's office as well as the dialysis center and spoke to his nurse Dulce. I asked if the patient should be admitted for dialysis tonight. She checked the patient's previous potassium levels and stated that the patient would be okay to go home because he was getting dialysis in the morning. I spoke to the patient and his about why his procedure was cancelled today which they understood. I explained to the patient , his , and Dr. Sibley that the patient should be scheduled for his colonoscopy on the day after dialysis rather than two days after dialysis to minimize the risk of hyperkalemia. The patient was counseled to avoid potassium containing foods and beverages tonight and to go to dialysis in the morning.
== END | disposition home or self-care (01) ==
LOC: C.GI 14:40
PROVIDERS: ATTEND Internal Medicine
DX: K62.5 Hemorrhage of anus and rectum (principal); E87.5 Hyperkalemia; Z53.09 Procedure and treatment not carried out because of other contraindication; Z98.61 Coronary angioplasty status; Z90.5 Acquired absence of kidney; Z94.0 Kidney transplant status; Z90.49 Acquired absence of other specified parts of digestive tract; Z95.1 Presence of aortocoronary bypass graft; Z99.2 Dependence on renal dialysis

== ENCOUNTER 2017-07-22 08:43 | Emergency (ER) | payer OTHER ==
[~2017-07-22] VITALS: Ht 167.6 cm; Wt 63.0 kg
[~2017-07-22 08:43] MED LIST changes: -B-CO1CAP17 PO; -CINA0.42 PO; -ISOS30TA35 PO; -LPT/20 PO; -NTRGSL/4 UT; +OXYC-90 PO; -OXYC1TAB3 PO; -PANT40TA PO; -PLV75 PO; -PRED-301 PO; -SEVE800T7 PO
[2017-07-22 08:55] VITALS: TEMP 37.2; O2SAT 91; Ht 167.6 cm; Wt 63.0 kg
--- NOTE | 2017-07-22 10:20 | EMERGENCY ROOM VISIT NOTE ---
History Report prepared by Craig: Saleem Erwin Under the Supervision of: Yolette PowerO. First contact with patient: 09:55 Chief Complaint: LEG PAIN,LEG INJURY Stated Complaint: R LEG PAIN & STOMACH PAIN History of Present Illness The patient is a 52 year old male who presents to the Emergency Room with complaints of worsening right leg pain that began 1 day ago. He states the pain is located in the back of his leg between his knee and ankle. He describes the pain as "pins and needles". Patient has associated symptoms of worsening right leg numbness for the past month and a half. He states that the numbness started at his foot and is now all the way up to his knee. He states that taking hot baths does not resolve the numbness. Patient states he has been on Dialysis since 13 years old. He states that 10 years ago he had a cardiac catheterization that nicked his femoral artery. He states he has a fistula in his groin. Patient denies any changes in bowel movement change, leg swelling, falls, injuries, fevers, and chills. He denies being a smoker. He states he has a history of a Dieulafoy's lesion, a myocardial infarction, and severe stomach pain. He denies a family history of kidney problems. Source of History: patient Onset: 1 day ago Position: leg (right) Timing: worsening Associated Symptoms: + numbness, No fevers, No chills Note: Patient denies any bowel movement problems, leg swelling, falls, or injuries. Review of Systems See HPI for pertinent positives & negatives. A total of 10 systems reviewed and were otherwise negative. Past Medical & Surgical Medical Problems: (1) Abdominal pain (2) Acute H. pylori gastric ulcer (3) Acute respiratory failure (4) Anemia (5) Atrial flutter (6) Bacteremia (7) C. difficile colitis (8) CAD (coronary artery disease) (9) Chronic systolic CHF (congestive heart failure) (10) End-stage renal disease on hemodialysis (11) ESRD (end stage renal disease) on dialysis (12) Fever (13) Gastric mass (14) H. pylori infection (15) HTN (hypertension) (16) hx stent placement (17) Immunosuppression (18) Intractable abdominal pain (19) Leukocytosis (20) Liver cirrhosis (21) Lower GI bleed (22) PR (myocardial infarction) (23) NSTEMI (non-ST elevated myocardial infarction) (24) Postoperative wound infection (25) Secondary hyperparathyroidism of renal origin (26) SIRS (systemic inflammatory response syndrome) (27) Syncope Surgical Problems: (1) History of renal transplant (2) History of renal transplant (3) Hx of CABG (4) Hx of cardiac catheterization Family History FH: heart disease Social History Smoking Status: Never Smoker Alcohol Use: none Drug Use: none Marital Status: Housing Status: lives with significant other Occupation Status: employed, disabled Current/Historical Medications Scheduled Atorvastatin (Atorvastatin Calcium), 20 MG PO HS Cinacalcet Hydrochloride (Sensipar), 60 MG PO QPM Clopidogrel Bisulfate (Clopidogrel), 75 MG PO DAILY Isosorbide Mononitrate Ext Rel (Imdur Ext Rel), 15 MG PO BID Metoprolol Succinate (Metoprolol Succinate ER), 50 MG PO BID Nitroglycerin (Nitrostat), 0.4 MG UT PRN Pantoprazole (Protonix), 40 MG PO QPM Prednisone (Prednisone), 5 MG PO DAILY Sevelamer Carbonate (Renvela), 1,600 MG PO TIDM Vitamin B Cmplx/Vitc/Folic Ac (Nephrocaps), 1 CAP PO DAILY Vitamin E (Vitamin E), 400 UNIT PO DAILY Scheduled PRN Mupirocin (Bactroban 2% Oint), 1 APPLN JENN BID PRN for sore Oxycodone Ir (Roxicodone Ir), 5 MG PO Q4H PRN for Severe Pain Allergies Coded Allergies: POLLEN (Verified Allergy, Unknown, "HAYFEVER", 07/22/17) Diazoxide (Verified Adverse Reaction, Intermediate, ELEVATE BP;N&V, ) NSAIDs (Verified Adverse Reaction, Unknown, KIDNEY TRANSPLANT, 07/22/17) Physical Exam Vital Signs Date Time Temp Pulse Resp B/P (MAP) Pulse Ox O2 Delivery O2 Flow Rate FiO2 07/22/17 13:26 167/80 07/22/17 12:03 83 17 142/81 Room Air 07/22/17 08:55 37.2 93 20 110/72 91 Room Air Physical Exam GENERAL: alert, well appearing, well nourished, no distress, non-toxic EYE EXAM: normal conjunctiva, PERRL and EOM's grossly intact OROPHARYNX: no exudate, no erythema, lips, buccal mucosa, and tongue normal and dried mucous membranes. Poor dentition NECK: supple, no nuchal rigidity, no adenopathy, non-tender LUNGS: Clear to auscultation. Normal chest wall mechanics HEART: no murmurs, S1 normal and S2 normal ABDOMEN: abdomen soft, non-tender, normo-active bowel sounds, no masses, no rebound or guarding. BACK: Back is symmetrical on inspection and there is no deformity, no midline tenderness, no CVA tenderness. SKIN: no rashes and no bruising UPPER EXTREMITIES: Left upper extremities are positive for bruey and thrill over graft. LOWER EXTREMITIES: Palpable pulse bilaterally, sensitive difference in right leg , no edema, no color difference, no trauma, no reproducible tenderness, no effusion NEURO EXAM: Normal sensorium, cranial nerves II-XII grossly intact, normal speech, no gross weakness of arms, no gross weakness of legs. No drift. Finger to nose intact. Gross sensation intact. Medical Decision & Procedures ER Provider Diagnostic Interpretation: Radiology results have been interpreted by the radiologist and reviewed by me. ABDOMEN AND PELVIS CT WITHOUT CONTRAST CT DOSE: 492.91 mGycm HISTORY: Generalized abdominal pain. TECHNIQUE: Multiaxial CT images of the abdomen and pelvis were performed without contrast. A dose lowering technique was utilized adhering to the principles of ALARA. COMPARISON STUDY: Abdomen and pelvis CT 05/15/2017. FINDINGS: Lung bases: The heart is mildly enlarged and without pericardial effusion. The coronary arteries are densely calcified. There is calcification of the right ventricular wall as well as the interventricular septum, similar to previous. A 3 mm pulmonary nodule is again seen at the left lung. Liver: The unenhanced liver is cirrhotic in morphology and markedly heterogeneous in attenuation. There is nodularity of the surface contour. Calcification is again seen along the inferior right lobe of the liver and along the left lobe of the liver. There is no intrahepatic biliary ductal dilatation. Gallbladder: Surgically absent. Spleen: Not identified and presumed surgically absent. Pancreas: There is near complete fatty atrophy of the pancreas. Adrenal glands: Unremarkable. Kidneys: The nikolai kidneys are surgically absent. 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 Both transplants are markedly atrophic. The right pelvic transplant is calcified and there is mild surrounding stranding, unchanged. Abdominal vasculature: There is advanced atherosclerotic calcification of the abdominal aorta. Stents are likely present within the external iliac arteries. There is likely thrombosis of the right common iliac artery, unchanged. Bowel: There is a large hernia in the right lower quadrant abdominal wall which contains loops of small bowel and colon. There are few prominent fluid-filled loops of small bowel seen throughout the abdomen. However, no definite bowel obstruction is seen. This is similar to the prior study. There is mild colonic diverticulosis without CT evidence of acute diverticulitis. The appendix is well-visualized and normal. Peritoneum: No intraperitoneal free air or abdominal ascites is seen. Mild peritoneal nodularity below the right lobe of liver seen on image #[id number] similar to previous. Lymphadenopathy: Again seen is retroperitoneal and iliac chain lymphadenopathy. Retroperitoneal nodes measure up to 1.5 cm in short axis. This is similar to the prior examination. Pelvic viscera: The bladder is decompressed and not well evaluated. The prostate gland and seminal vesicles are normal as imaged. Skeletal structures: The skeletal structures are osteopenic. There is a moderate compression deformity of T12. No lytic or blastic lesions are seen. IMPRESSION: 1. No significant change compared to the prior study. 2. No acute infectious or inflammatory findings are clearly seen. Extensive chronic changes are discussed above. 3. Cirrhotic liver morphology. 4. The nikolai kidneys and spleen are surgically absent. 5. Retroperitoneal and iliac chain lymphadenopathy is similar to previous. 6. Bilateral pelvic renal transplant are markedly atrophic. Mild stranding around the right pelvic transplant is nonspecific and unchanged from prior studies. 7. There is unchanged appearance of a large hernia in the right lower quadrant abdominal wall containing nonobstructed loops of small bowel and colon. 8. Additional findings as above. Electronically signed by: Smith Reed M.D. 07/22/2017 10:48 AM R VENOUS DOPP LOWER EXT UNILAT CLINICAL HISTORY: pain, paresthesias TECHNIQUE: Venous Doppler COMPARISON STUDY: None FINDINGS: Normal study IMPRESSION: Normal study The above report was generated using voice recognition software. It may contain grammatical, syntax or spelling errors. Electronically signed by: Sebastian Vidal M.D. 07/22/2017 12:03 PM R ART DOP DUPLEX LWR EXT UNI CLINICAL HISTORY: pain, paresthesias pain TECHNIQUE: Arterial Doppler COMPARISON STUDY: None FINDINGS: Severe atherosclerotic change throughout the arterial structures of the right thigh and lower leg. Considerable plaque formation throughout. Probable mid profunda occlusion. Dampened flow with monophasic waveforms throughout the major arterial structures of the right thigh. Right lower leg shows posterior tibial artery territory obstruction to be occluded. The dorsalis pedis artery potentially is occluded distally. Ankle brachial indices could not be obtained on the right due to poor flow characteristics and calcified vessels. IMPRESSION: 1. Considerable plaque dimension throughout the entire right lower leg. 2. Occlusion right posterior tibial artery and distal aspect right dorsalis pedis artery. 3. High-grade multilevel arterial occlusive change throughout all remaining arterial structures of the right thigh and lower leg. The above report was generated using voice recognition software. It may contain grammatical, syntax or spelling errors. Electronically signed by: Sebastian Vidal M.D. 07/22/2017 12:11 PM Laboratory Results 07/22/17 10:35 Red Blood Count 3.68, Mean Corpuscular Volume 101.4, Mean Corpuscular Hemoglobin 34.0, Mean Corpuscular Hemoglobin Concent 33.5, Mean Platelet Volume 10.5, Neutrophils (%) (Auto) 65.4, Lymphocytes (%) (Auto) 18.6, Monocytes (%) ( Auto) 14.2, Eosinophils (%) (Auto) 1.1, Basophils (%) (Auto) 0.3, Neutrophils # (Auto) 13.08, Lymphocytes # (Auto) 3.72, Monocytes # (Auto) 2.84, Eosinophils # (Auto) 0.21, Basophils # (Auto) 0.05 07/22/17 10:35 Test 07/22/17 10:34 07/22/17 10:35 07/22/17 12:15 Prothrombin Time 12.0 SECONDS (9.0-12.0) Prothromb Time International Ratio 1.1 (0.9-1.1) White Blood Count 19.97 K/uL (4.8-10.8) Red Blood Count 3.68 M/uL (4.7-6.1) Hemoglobin 12.5 g/dL (14.0-18.0) Hematocrit 37.3 % (42-52) Mean Corpuscular Volume 101.4 fL (80-100) Mean Corpuscular Hemoglobin 34.0 pg (25-34) Mean Corpuscular Hemoglobin Concent 33.5 g/dl (32-36) Platelet Count 339 K/uL (130-400) Mean Platelet Volume 10.5 fL (7.4-10.4) Neutrophils (%) (Auto) 65.4 % Lymphocytes (%) (Auto) 18.6 % Monocytes (%) (Auto) 14.2 % Eosinophils (%) (Auto) 1.1 % Basophils (%) (Auto) 0.3 % Neutrophils # (Auto) 13.08 K/uL (1.4-6.5) Lymphocytes # (Auto) 3.72 K/uL (1.2-3.4) Monocytes # (Auto) 2.84 K/uL (0.11-0.59) Eosinophils # (Auto) 0.21 K/uL (0-0.5) Basophils # (Auto) 0.05 K/uL (0-0.2) RDW Standard Deviation 61.0 fL (36.4-46.3) RDW Coefficient of Variation 16.5 % (11.5-14.5) Immature Granulocyte % (Auto) 0.4 % Immature Granulocyte # (Auto) 0.07 K/uL (0.00-0.02) Anion Gap 9.0 mmol/L (3-11) Est Creatinine Clear Calc Drug Dose 10.2 ml/min Estimated GFR () 8.6 Estimated GFR (Non- 7.4 BUN/Creatinine Ratio 6.1 (10-20) Calcium Level 8.2 mg/dl (8.5-10.1) Phosphorus Level 5.6 mg/dl (2.5-4.9) Magnesium Level 2.1 mg/dl (1.8-2.4) Total Bilirubin 1.0 mg/dl (0.2-1) Aspartate Amino Transf (AST/SGOT) 28 U/L (15-37) Alanine Aminotransferase (ALT/SGPT) 29 U/L (12-78) Alkaline Phosphatase 490 U/L (45-117) Total Protein 7.9 gm/dl (6.4-8.2) Albumin 2.9 gm/dl (3.4-5.0) Globulin 5.0 gm/dl (2.5-4.0) Albumin/Globulin Ratio 0.6 (0.9-2) Bedside Lactic Acid Venous 1.29 mmol/L (0.90-1.70) Laboratory results per my review. Medications Administered Medications (Trade) Dose Ordered Sig/Amanda Route Start Time Stop Time Status Last Admin Dose Admin Ondansetron HCl (Zofran Odt) 4 mg ONE ONCE PO 07/22/17 13:00 07/22/17 13:01 DC 07/22/17 13:16 4 MG Ondansetron HCl (ZOFRAN ODT 4MG Home Pack) 1 homepack UD ONCE PO 07/22/17 13:15 07/22/17 13:16 DC 07/22/17 13:16 1 HOMEPACK ED Course 1000: The patient was evaluated in room A3. A complete history and physical exam was performed. 1241: I reassessed the patient and he is resting comfortably. 1300: Zofran Odt 4mg PO 1325: Upon reevaluation, the patient is feeling better. I discussed the findings and the treatment plan with the patient. He verbalizes agreement and understanding. He was discharged home. Medical Decision Differential Diagnosis: Arterial insufficiency, acute arterial occlusion, DVT, complication of dialysis , trauma, sciatica , lumbar radiculopathy Patient with slowly worsening symptoms over the last 4-6 weeks. Given findings noted on lower extremity Dopplers, likely chronic worsening of his peripheral vascular disease now leading to more noticeable symptoms. Doubt related to sciatica or lumbar radiculopathy, no evidence of acute infection. Discussed with patient close follow-up with vascular surgery, symptoms to watch and return for, continue use of his routine medications and continued scheduled dialysis, he verbalized understanding was agreeable with plan. No evidence of acute GI pathology given patient's mention of intermittent abdominal pain over the last month, patient states hernia is known and is unchanged in his opinion. No evidence of incarceration or ischemia on the scan limited by lack of contrast. Patient states chronically elevated white blood cell count, and this was found review of EMR. Immersed today slightly elevated compared to prior, this discussed with patient at bedside and advised close follow-up and recheck with his family doctor. No evidence of acute infectious etiology on presentation today. Medication Reconcilliation Current Medication List: was personally reviewed by me Blood Pressure Screening Patient's blood pressure: Elevated blood pressure Blood pressure disposition: Elevated BP felt to be situational Consults Time Called: 1308 Consulting Physician: Dr. Burns - investigator narcotics Returned Call: 1310 I reviewed the patient's case with Dr. Burns covering for Dr. North. He is agreeable with plan for close outpt f/u with Dr. Meneses and were agreeable with evaluation here in ED. Pt already on plavix, not taking ASA due to prior GI bleed. Pt doesn't have acute occlusion, likely worsening of chronic condition. Impression Primary Impression: Leg pain, right Additional Impressions: Peripheral vascular disease Abdominal pain End-stage renal disease on hemodialysis Scribe Attestation The scribe's documentation has been prepared under my direction and personally reviewed by me in its entirety. I confirm that the note above accurately reflects all work, treatment, procedures, and medical decision making performed by me. Departure Information Dispostion Home / Self-Care Referrals Todd Azevedo M.D. (PCP) Forms HOME CARE DOCUMENTATION FORM, IMPORTANT VISIT INFORMATION Patient Instructions ED Abdominal Pain Cause Unkn Male , My [facility] [address], Peripheral Artery Disease Additional Instructions Please follow up with your family doctor as an outpatient. Please continue regular medications as prescribed. Please continue going to dialysis 3 times a week as scheduled. Please follow up with the vascular surgeon Dr. Meneses regarding the pain and numbness in your leg. If you develop any worsening pain or paresthesias, the leg becomes very cold, appears discolored, you are unable to walk, develop fevers, worsening abdominal pain, vomiting, or you've any other new concerns, please return the emergency room. Problem Qualifiers Additional Impressions: Abdominal pain Abdominal location: generalized Qualified Codes: R10.84 - Generalized abdominal pain
--- NOTE | 2017-07-22 10:50 | DIAGNOSTIC IMAGING REPORT ---
ABDOMEN AND PELVIS CT WITHOUT CONTRAST CT DOSE: 492.91 mGycm HISTORY: Generalized abdominal pain. TECHNIQUE: Multiaxial CT images of the abdomen and pelvis were performed without contrast. A dose lowering technique was utilized adhering to the principles of ALARA. COMPARISON STUDY: Abdomen and pelvis CT 05/15/2017. FINDINGS: Lung bases: The heart is mildly enlarged and without pericardial effusion. The coronary arteries are densely calcified. There is calcification of the right ventricular wall as well as the interventricular septum, similar to previous. A 3 mm pulmonary nodule is again seen at the left lung. Liver: The unenhanced liver is cirrhotic in morphology and markedly heterogeneous in attenuation. There is nodularity of the surface contour. Calcification is again seen along the inferior right lobe of the liver and along the left lobe of the liver. There is no intrahepatic biliary ductal dilatation. Gallbladder: Surgically absent. Spleen: Not identified and presumed surgically absent. Pancreas: There is near complete fatty atrophy of the pancreas. Adrenal glands: Unremarkable. Kidneys: The [place] moore[place] kidneys are surgically absent. 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 Both transplants are markedly atrophic. The right pelvic transplant is calcified and there is mild surrounding stranding, unchanged. Abdominal vasculature: There is advanced atherosclerotic calcification of the abdominal aorta. Stents are likely present within the external iliac arteries. There is likely thrombosis of the right common iliac artery, unchanged. Bowel: There is a large hernia in the right lower quadrant abdominal wall which contains loops of small bowel and colon. There are few prominent fluid-filled loops of small bowel seen throughout the abdomen. However, no definite bowel obstruction is seen. This is similar to the prior study. There is mild colonic diverticulosis without CT evidence of acute diverticulitis. The appendix is well-visualized and normal. Peritoneum: No intraperitoneal free air or abdominal ascites is seen. Mild peritoneal nodularity below the right lobe of liver seen on image #153 similar to previous. Lymphadenopathy: Again seen is retroperitoneal and iliac chain lymphadenopathy. Retroperitoneal nodes measure up to 1.5 cm in short axis. This is similar to the prior examination. Pelvic viscera: The bladder is decompressed and not well evaluated. The prostate gland and seminal vesicles are normal as imaged. Skeletal structures: The skeletal structures are osteopenic. There is a moderate compression deformity of T12. No lytic or blastic lesions are seen. IMPRESSION: 1. No significant change compared to the prior study. 2. No acute infectious or inflammatory findings are clearly seen. Extensive chronic changes are discussed above. 3. Cirrhotic liver morphology. 4. The bill moore[place] slough kidneys and spleen are surgically absent. 5. Retroperitoneal and iliac chain lymphadenopathy is similar to previous. 6. Bilateral pelvic renal transplant are markedly atrophic. Mild stranding around the right pelvic transplant is nonspecific and unchanged from prior studies. 7. There is unchanged appearance of a large hernia in the right lower quadrant abdominal wall containing nonobstructed loops of small bowel and colon. 8. Additional findings as above. Electronically signed by: Smith Reed M.D. 07/22/2017 10:48 AM Dictated Date/Time: 07/22/2017 10:38 AM
[2017-07-22 10:53] LABS: BASO % 0.3 %; BASO ABS # 0.05 K/uL (0-0.2); EOS % 1.1 %; EOS ABS # 0.21 K/uL (0-0.5); HEMATOCRIT 37.3 % (42-52); HEMOGLOBIN 12.5 g/dL (14.0-18.0); IG# 0.07 K/uL (0.00-0.02); LYMPH % 18.6 %; LYMPH ABS # 3.72 K/uL (1.2-3.4); MEAN CELL VOLUME 101.4 fL (80-100); MEAN CORPUSCULAR HGB CONC 33.5 g/dl (32-36); MEAN PLATELET VOLUME 10.5 fL (7.4-10.4); MONO % 14.2 %; MONO ABS # 2.84 K/uL (0.11-0.59); NEUT % 65.4 %; NEUT ABS # 13.08 K/uL (1.4-6.5); PLATELET COUNT 339 K/uL (130-400); RED CELL DISTRIBUTION WIDTH CV 16.5 % (11.5-14.5); WHITE BLOOD COUNT 19.97 K/uL (4.8-10.8)
[2017-07-22 11:04] LABS: INR 1.1 (0.9-1.1)
[2017-07-22 11:25] LABS: ALBUMIN 2.9 gm/dl (3.4-5.0); CALCIUM 8.2 mg/dl (8.5-10.1); CREATININE 7.62 mg/dl (0.60-1.40); PHOSPHORUS 5.6 mg/dl (2.5-4.9); POTASSIUM 4.5 mmol/L (3.5-5.1); TOTAL PROTEIN 7.9 gm/dl (6.4-8.2)
[2017-07-22 12:03] VITALS: PULSE 83
--- NOTE | 2017-07-22 12:04 | DIAGNOSTIC IMAGING REPORT ---
R VENOUS DOPP LOWER EXT UNILAT CLINICAL HISTORY: pain, paresthesias TECHNIQUE: Venous Doppler COMPARISON STUDY: None FINDINGS: Normal study IMPRESSION: Normal study The above report was generated using voice recognition software. It may contain grammatical, syntax or spelling errors. Electronically signed by: Sebastian Vidal M.D. 07/22/2017 12:03 PM Dictated Date/Time: 07/22/2017 12:03 PM
--- NOTE | 2017-07-22 12:13 | DIAGNOSTIC IMAGING REPORT ---
R ART DOP DUPLEX LWR EXT UNI CLINICAL HISTORY: pain, paresthesias pain TECHNIQUE: Arterial Doppler COMPARISON STUDY: None FINDINGS: Severe atherosclerotic change throughout the arterial structures of the right thigh and lower leg. Considerable plaque formation throughout. Probable mid profunda occlusion. Dampened flow with monophasic waveforms throughout the major arterial structures of the right thigh. Right lower leg shows posterior tibial artery territory obstruction to be occluded. The dorsalis pedis artery potentially is occluded distally. Ankle brachial indices could not be obtained on the right due to poor flow characteristics and calcified vessels. IMPRESSION: 1. Considerable plaque dimension throughout the entire right lower leg. 2. Occlusion right posterior tibial artery and distal aspect right dorsalis pedis artery. 3. High-grade multilevel arterial occlusive change throughout all remaining arterial structures of the right thigh and lower leg. The above report was generated using voice recognition software. It may contain grammatical, syntax or spelling errors. Electronically signed by: Sebastian Vidal M.D. 07/22/2017 12:11 PM Dictated Date/Time: 07/22/2017 12:09 PM
[2017-07-22] MEDS ORDERED: ONDANSETRON 4MG OD TAB PO ONE (13:00)
[2017-07-22] MEDS ORDERED: ONDANSETRON HOME PACK 4MG OD TAB PO ONE (13:15)
[2017-07-22 13:26] VITALS: BP 167/80
[2017-11-24] MEDS ORDERED: NTRGSL/4 UT (06:19)
[2017-11-24] MEDS ORDERED: PANT40TA PO (12:41)
[2017-11-24] MEDS ORDERED: ISOS30TA35 PO (17:45)
[2017-11-24] MEDS ORDERED: B-COCAP2 PO (22:30)
[2017-11-25] MEDS ORDERED: HPRIS5M SQ (18:18)
[2017-11-25] MEDS ORDERED: HYDR1INJ48 IV (18:18)
[2017-11-25] MEDS ORDERED: PIPE1INJ11 IV (18:18)
== END 2017-07-22 13:28 | disposition home or self-care (01) ==
LOC: C.EDB 08:44 → C.EDA 13:28
DX: M79.604 Pain in right leg (principal); I73.9 Peripheral vascular disease, unspecified; N18.6 End stage renal disease; I12.9 Hypertensive chronic kidney disease with stage 1 through stage 4 chronic kidney disease, or unspecified chronic kidney disease; R10.9 Unspecified abdominal pain; I48.92 Unspecified atrial flutter; I25.10 Atherosclerotic heart disease of native coronary artery without angina pectoris; I50.22 Chronic systolic (congestive) heart failure; I25.2 Old myocardial infarction; N25.81 Secondary hyperparathyroidism of renal origin; Z99.2 Dependence on renal dialysis; Z87.19 Personal history of other diseases of the digestive system; Z95.1 Presence of aortocoronary bypass graft; Z94.0 Kidney transplant status; K74.60 Unspecified cirrhosis of liver; Z79.899 Other long term (current) drug therapy; Z88.8 Allergy status to other drugs, medicaments and biological substances; Z82.49 Family history of ischemic heart disease and other diseases of the circulatory system

== ENCOUNTER 2017-11-24 20:05 | Inpatient (IN) | payer OTHER ==
[~2017-11-24] VITALS: Ht 167.6 cm; Wt 67.4 kg
[~2017-11-24 20:05] MED LIST changes: +ISOS30TA35 PO; +NTRGSL/4 UT; -OXYC-90 PO; +OXYC1TAB3 PO; +PANT40TA PO
--- NOTE | 2017-11-24 20:19 | EMERGENCY ROOM VISIT NOTE ---
History Report prepared by Craig: Aditi Trent Under the Supervision of: Dr. Allan Doyle M.D. First contact with patient: 20:10 Chief Complaint: CHEST PAIN Stated Complaint: CHEST PAIN History of Present Illness The patient is a 52 year old male who presents to the Emergency Room with complaints of persistent sharp chest pain radiating to his left side under his armpit that began one hour ago. He reports the pain is a 9/10 in severity. He states that he was in an argument with his son when it occurred. He took three NTG while at home. EMS administered three more NTG and 324 mg Aspirin. He notes that NTG usually helps, though it has not relieved the pain. He states his pain is not similar to his past chest pain. He notes nausea. He denies any fevers or recent illness. He reports shortness of breath with difficulty taking a deep breath. He has a significant cardiac history. He had an TN at 40 years old. He has cardiac stents. He had a history cardiac bypass surgery. He reports a history of blocked vessels in his right leg. He states that he has had Morphine , though he is usually treated with Fentanyl. He denies any history of DM. He is on dialysis due to kidney removal from streptococcus pharyngitis at the age of 13. He has a history of GI bleed. Source of History: patient Onset: one hour ago Position: chest Symptom Intensity: 9/10 Quality: sharp Timing: other (persistent) Associated Symptoms: + SOB, + nausea, No fevers Note: Notes radiating to left arm. Denies recent illness. Review of Systems See HPI for pertinent positives & negatives. A total of 10 systems reviewed and were otherwise negative. Past Medical & Surgical Medical Problems: (1) Abdominal pain (2) Acute H. pylori gastric ulcer (3) Acute respiratory failure (4) Anemia (5) Atrial flutter (6) Bacteremia (7) C. difficile colitis (8) CAD (coronary artery disease) (9) Chronic systolic CHF (congestive heart failure) (10) End-stage renal disease on hemodialysis (11) ESRD (end stage renal disease) on dialysis (12) Fever (13) Gastric mass (14) H. pylori infection (15) HTN (hypertension) (16) hx stent placement (17) Immunosuppression (18) Intractable abdominal pain (19) Leukocytosis (20) Liver cirrhosis (21) Lower GI bleed (22) TN (myocardial infarction) (23) NSTEMI (non-ST elevated myocardial infarction) (24) Postoperative wound infection (25) Secondary hyperparathyroidism of renal origin (26) SIRS (systemic inflammatory response syndrome) (27) Syncope Surgical Problems: (1) History of renal transplant (2) History of renal transplant (3) Hx of CABG (4) Hx of cardiac catheterization Old medical records were reviewed. Nurse's notes were reviewed and I agree with. Family History FH: heart disease Social History Smoking Status: Never Smoker Alcohol Use: none Drug Use: none Marital Status: Housing Status: lives with significant other Occupation Status: employed, disabled Current/Historical Medications Scheduled Atorvastatin (Lipitor), 20 MG PO HS Cilostazol (Pletal), 50 MG PO DAILY Cinacalcet Hydrochloride (Sensipar), 60 MG PO QPM Clopidogrel Bisulfate (Clopidogrel), 75 MG PO DAILY Isosorbide Mononitrate Ext Rel (Imdur Ext Rel), 30 MG PO BID Metoprolol Succinate (Metoprolol Succinate ER), 50 MG PO BID Pantoprazole (Protonix), 40 MG PO QPM Prednisone (Prednisone), 5 MG PO DAILY Sevelamer Carbonate (Renvela), 1,600 MG PO TIDM Vitamin B Cmplx/Vitc/Folic Ac (Nephrocaps), 1 CAP PO DAILY Scheduled PRN Nitroglycerin (Nitrostat), 0.4 MG UT UD PRN for Chest Pain Oxycodone HCl (Oxycodone HCl), 5 MG PO Q8 PRN for Pain Allergies Coded Allergies: POLLEN (Verified Allergy, Unknown, "HAYFEVER", 07/22/17) Diazoxide (Verified Adverse Reaction, Intermediate, ELEVATE BP;N&V, ) NSAIDs (Verified Adverse Reaction, Unknown, KIDNEY TRANSPLANT, 07/22/17) Physical Exam Vital Signs Date Time Temp Pulse Resp B/P (MAP) Pulse Ox O2 Delivery O2 Flow Rate FiO2 11/24/17 22:06 71 18 129/77 95 Room Air 11/24/17 20:58 72 11/24/17 20:06 37.0 88 18 144/87 96 Room Air 11/24/17 20:06 96 Room Air 11/24/17 20:06 96 Room Air Physical Exam General: Chronically-ill appearing middle-aged male in no acute distress. HEENT: Normal cephalic atraumatic. Pupils are equal round and reactive to light. Extraocular movements are intact. Oropharynx is pink with moist mucous membranes. Poor dentition. No swelling of the mouth lips or tongue. Neck: Supple with a midline trachea. No meningeal signs or stiffness, no JVD or bruits. No Stridor. Chest: Clear to auscultation bilaterally. No wheezes or rhonchi. No increased work of breathing. Heart: regular rate and rhythm. Abdomen: Soft nontender, nondistended without rebound guarding or rigidity. Extremities: No cyanosis clubbing or edema. No calf tenderness or assymetry. Dialysis fistula. Spine/Back. Non tender to palpation. No CVA tenderness Skin: Good turgor without rashes. Neurologic exam: Cranial nerves two through 12 are intact. Motor and sensation are intact and symmetrical throughout. Medical Decision & Procedures ER Provider Diagnostic Interpretation: Radiology results as stated below per my review and radiologist interpretation: SINGLE VIEW CHEST CLINICAL HISTORY: Atypical chest pain. FINDINGS: An AP, portable, upright chest radiograph is compared to study dated 05/14/2017. The examination is degraded by portable technique and apical lordotic positioning. The patient is status post midline sternotomy. The heart is markedly enlarged and there is atherosclerotic calcification of the thoracic aorta. The pulmonary vasculature is noncongested. Chronic interstitial thickening is similar to previous. There is no airspace consolidation or large pleural effusion. No pneumothorax is seen. The skeletal structures are osteopenic. 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 IMPRESSION: Cardiomegaly with no acute cardiopulmonary abnormality. Electronically signed by: Neil Don M.D. 11/24/2017 8:48 PM Dictated Date/Time: 11/24/2017 8:47 PM Laboratory Results 11/24/17 20:33 Red Blood Count 3.96, Mean Corpuscular Volume 101.3, Mean Corpuscular Hemoglobin 34.8, Mean Corpuscular Hemoglobin Concent 34.4, Mean Platelet Volume 10.1, Neutrophils (%) (Auto) 56.3, Lymphocytes (%) (Auto) 24.6, Monocytes (%) ( Auto) 15.5, Eosinophils (%) (Auto) 3.0, Basophils (%) (Auto) 0.3, Neutrophils # (Auto) 8.29, Lymphocytes # (Auto) 3.63, Monocytes # (Auto) 2.29, Eosinophils # ( Auto) 0.45, Basophils # (Auto) 0.05 11/24/17 20:33 11/24/17 22:10 Test 11/24/17 20:33 11/24/17 22:10 11/24/17 22:12 White Blood Count 14.76 K/uL (4.8-10.8) Red Blood Count 3.96 M/uL (4.7-6.1) Hemoglobin 13.8 g/dL (14.0-18.0) Hematocrit 40.1 % (42-52) Mean Corpuscular Volume 101.3 fL (80-100) Mean Corpuscular Hemoglobin 34.8 pg (25-34) Mean Corpuscular Hemoglobin Concent 34.4 g/dl (32-36) Platelet Count 346 K/uL (130-400) Mean Platelet Volume 10.1 fL (7.4-10.4) Neutrophils (%) (Auto) 56.3 % Lymphocytes (%) (Auto) 24.6 % Monocytes (%) (Auto) 15.5 % Eosinophils (%) (Auto) 3.0 % Basophils (%) (Auto) 0.3 % Neutrophils # (Auto) 8.29 K/uL (1.4-6.5) Lymphocytes # (Auto) 3.63 K/uL (1.2-3.4) Monocytes # (Auto) 2.29 K/uL (0.11-0.59) Eosinophils # (Auto) 0.45 K/uL (0-0.5) Basophils # (Auto) 0.05 K/uL (0-0.2) RDW Standard Deviation 59.8 fL (36.4-46.3) RDW Coefficient of Variation 16.1 % (11.5-14.5) Immature Granulocyte % (Auto) 0.3 % Immature Granulocyte # (Auto) 0.05 K/uL (0.00-0.02) Anion Gap 7.0 mmol/L (3-11) Est Creatinine Clear Calc Drug Dose 13.3 ml/min Estimated GFR () 11.7 Estimated GFR (Non- 10.1 BUN/Creatinine Ratio 5.3 (10-20) Calcium Level 7.8 mg/dl (8.5-10.1) Total Bilirubin 0.5 mg/dl (0.2-1) Alanine Aminotransferase (ALT/SGPT) 40 U/L (12-78) Alkaline Phosphatase 696 U/L (45-117) Total Protein 7.7 gm/dl (6.4-8.2) Albumin 3.3 gm/dl (3.4-5.0) Lipase 405 U/L (73-393) Direct Bilirubin 0.2 mg/dl (0-0.2) Aspartate Amino Transf (AST/SGOT) 30 U/L (15-37) Bedside Troponin I 0.030 ng/ml (0-0.045) Laboratory studies as stated above per my review. Medications Administered Medications (Trade) Dose Ordered Sig/Amanda Route Start Time Stop Time Status Last Admin Dose Admin Ondansetron HCl (Zofran Inj) 4 mg NOW STAT IV 11/24/17 20:20 11/24/17 20:22 DC 11/24/17 20:29 4 MG Fentanyl Citrate (Fentanyl Inj) 50 mcg NOW STAT IV 11/24/17 20:20 11/24/17 20:22 DC 11/24/17 20:30 50 MCG Fentanyl Citrate (Fentanyl Inj) 50 mcg NOW STAT IV 11/24/17 21:48 11/24/17 21:50 DC 11/24/17 21:59 50 MCG ECG Per My Interpretation Indication: chest pain Rate (beats per minute): 96 Rhythm: normal sinus Findings: nonspecific-ST abn (Anterior), RBBB, T-wave inversion (Anterior), left axis deviation, other (LVH) Change: no significant change (when compared to 05/14/2017) Change: Repeat ECG: Normal Sinus Rhythm 89 bpm Findings: LAD, TWI anteriorly, Nonspecific ST abnormality anteriorly. No change from previous earlier today. ED Course 2009: Past medical records reviewed. The patient was evaluated in room B9, and a complete history and physical examination were performed. 2019: Ordered Fentanyl 50 mcg IV and Zofran 4 mg IV 2049: I reassessed the patient at this time. He is feeling better. 2145: I reassessed the patient at this time. He has recurrent chest pain. 2147: Ordered Fentanyl 50 mcg IV 2239: I spoke with Dr. Madsen, [facility] hospitalist. We discussed the patient' s case. The patient will be evaluated by the [facility] for further management. 2242: I reassessed the patient at this time. I discussed the results and treatment plan with the patient. I answered all pertaining questions that he had. He expressed understanding and verbalized agreement. The patient will be further evaluated. Medical Decision Differentials include, but are not limited to: ACS, arrhythmia, CHF, PE, and electrolyte or metabolic abnormality. This patient comes in complaining of left-sided chest pain. He has a long cardiac history as well as end-stage renal disease. He did receive dialysis today and was feeling well. He got an argument with his son is starting havimg left-sided chest pain. He received 3 nitro at home as well as 3 nitroglycerin in the ambulance without change. He also received an aspirin in the ambulance. Upon my initial evaluation, he looks well but his EKG is abnormal looking however when compared to the old one there is no acute change. There is no acute ST segment elevations. He was given fentanyl 50 mcg IV and was read resting much more comfortably. Chest x-ray was unremarkable. His cardiac biomarkers were not elevated initially. He has renal failure but otherwise no acute electrolyte or metabolic abnormalities. He said the fentanyl is wearing off at one point in the pain was coming back. I did a second EKG is no change greater the first he received additional fentanyl and a second troponin was ordered. The patient will be admitted/observed for further treatment, evaluation given his cardiac history. Medication Reconcilliation Current Medication List: was personally reviewed by me Blood Pressure Screening Patient's blood pressure: Elevated blood pressure monitored by hospitalist Consults Time Called: 2147 [facility] Returned Call: [address] Madsen [facility] hospitalist. We discussed the patient's case. The patient will be evaluated by the [facility] for further management. Impression Primary Impression: Left sided chest pain Additional Impression: ESRD (end stage renal disease) on dialysis Scribe Attestation The scribe's documentation has been prepared under my direction and personally reviewed by me in its entirety. I confirm that the note above accurately reflects all work, treatment, procedures, and medical decision making performed by me. Departure Information Dispostion Being Evaluated By Hospitalist Referrals Todd Azevedo M.D. (PCP) Patient Instructions My [facility] Problem Qualifiers
[2017-11-24] MEDS ORDERED: FENTANYL CITRATE INJ 50 MCG/1 ML 2 ML VIAL IV STA ×2 (20:20→21:48)
[2017-11-24] MEDS ORDERED: ONDANSETRON INJ 2 MG/ML 2 ML VIAL IV STA (20:20)
[2017-11-24 20:47] LABS: BASO % 0.3 %; BASO ABS # 0.05 K/uL (0-0.2); EOS ABS # 0.45 K/uL (0-0.5); HEMATOCRIT 40.1 % (42-52); HEMOGLOBIN 13.8 g/dL (14.0-18.0); IG# 0.05 K/uL (0.00-0.02); LYMPH % 24.6 %; LYMPH ABS # 3.63 K/uL (1.2-3.4); MEAN CELL VOLUME 101.3 fL (80-100); MEAN CORPUSCULAR HEMOGLOBIN 34.8 pg (25-34); MEAN CORPUSCULAR HGB CONC 34.4 g/dl (32-36); MEAN PLATELET VOLUME 10.1 fL (7.4-10.4); MONO % 15.5 %; MONO ABS # 2.29 K/uL (0.11-0.59); NEUT % 56.3 %; NEUT ABS # 8.29 K/uL (1.4-6.5); PLATELET COUNT 346 K/uL (130-400); RED CELL DISTRIBUTION WIDTH CV 16.1 % (11.5-14.5); RED CELL DISTRIBUTION WIDTH SD 59.8 fL (36.4-46.3); WHITE BLOOD COUNT 14.76 K/uL (4.8-10.8)
--- NOTE | 2017-11-24 20:49 | DIAGNOSTIC IMAGING REPORT ---
SINGLE VIEW CHEST CLINICAL HISTORY: Atypical chest pain. FINDINGS: An AP, portable, upright chest radiograph is compared to study dated 05/14/2017. The examination is degraded by portable technique and apical lordotic positioning. The patient is status post midline sternotomy. The heart is markedly enlarged and there is atherosclerotic calcification of the thoracic aorta. The pulmonary vasculature is noncongested. Chronic interstitial thickening is similar to previous. There is no airspace consolidation or large pleural effusion. No pneumothorax is seen. The skeletal structures are osteopenic. 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 IMPRESSION: Cardiomegaly with no acute cardiopulmonary abnormality. Electronically signed by: Neil Don M.D. 11/24/2017 8:48 PM Dictated Date/Time: 11/24/2017 8:47 PM
[2017-11-24] MEDS ORDERED: OXYC-609 PO (21:09)
[2017-11-24] MEDS ORDERED: TPRSR/50 PO (21:09)
[2017-11-24] MEDS ORDERED: CILO50TA PO (21:13)
[2017-11-24 21:39] LABS: CREATININE 5.91 mg/dl (0.60-1.40)
[2017-11-24 21:40] LABS: ALBUMIN 3.3 gm/dl (3.4-5.0); CALCIUM 7.8 mg/dl (8.5-10.1); TOTAL PROTEIN 7.7 gm/dl (6.4-8.2)
[2017-11-24] MEDS ORDERED: PRED-301 PO (22:06)
[2017-11-24] MEDS ORDERED: SEVE800T7 PO (22:06)
[2017-11-24] MEDS ORDERED: CINA0.42 PO (22:13)
[2017-11-24] MEDS ORDERED: LPT20 PO (22:13)
[2017-11-24] MEDS ORDERED: PLV75 PO (22:13)
[2017-11-24] MEDS ORDERED: B-CO1CAP17 PO (22:30)
[2017-11-24 22:36] LABS: POTASSIUM 4.8 mmol/L (3.5-5.1)
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
[2017-11-25] VITALS (8 sets, daily range): BP systolic 132–207; BP diastolic 84–102; PULSE 72–118; TEMP 36.5–36.9; O2SAT 91–96; Ht 167.6 cm; Wt 67.4 kg
[2017-11-25] MEDS ORDERED: NITROGLYCERIN 0.4 MG SL PER TAB CHARGE SL PRN
[2017-11-25] MEDS ORDERED: ACETAMINOPHEN 325 MG TAB PO PRN
[2017-11-25] MEDS ORDERED: IV FLUIDS COMPLETED PRN (00:45)
[2017-11-25] MEDS ORDERED: MoRPHine SULFATE 4 MG/ML 1 ML CARP\\VIAL IM PRN (01:45)
[2017-11-25] MEDS ORDERED: MoRPHine SULFATE 4 MG/ML 1 ML CARP\\VIAL ONE (01:47)
[2017-11-25] MEDS: MoRPHine SULFATE 4 MG/ML 1 ML CARP\\VIAL IV PRN ×2 (06:43→09:31)
[2017-11-25] MEDS: SENSIPAR~ORDER AWAITING ACTION SCH ×2 (07:13→16:00)
[2017-11-25] MEDS: SEVELAMER HYDROCH 800 MG TAB PO SCH ×3 (08:00→17:00)
[2017-11-25] MEDS ORDERED: PERFLUTREN LIPID MICROSPHERE (DEFINITY) IV ONE (08:32)
[2017-11-25] MEDS: ONDANSETRON INJ 2 MG/ML 2 ML VIAL IV PRN ×2 (08:54→14:49)
[2017-11-25] MEDS ORDERED: CLOPIDOGREL BISULFATE 75 MG TAB PO SCH (09:00)
[2017-11-25] MEDS ORDERED: NEPHROCAPS PO SCH (09:00)
[2017-11-25] MEDS ORDERED: CILOSTAZOL 100 MG TAB PO SCH (09:00)
[2017-11-25] MEDS ORDERED: METOPROLOL SUCC 50MG EXT REL TAB PO SCH (09:00)
[2017-11-25] MEDS ORDERED: ISOSORBIDE MONONITRATE 30 MG TABCR PO SCH (09:00)
[2017-11-25 09:32] LABS: BASO % 0.3 %; BASO ABS # 0.05 K/uL (0-0.2); EOS % 3.3 %; EOS ABS # 0.63 K/uL (0-0.5); HEMATOCRIT 43.7 % (42-52); HEMOGLOBIN 14.8 g/dL (14.0-18.0); IG# 0.08 K/uL (0.00-0.02); LYMPH % 23.9 %; LYMPH ABS # 4.53 K/uL (1.2-3.4); MEAN CELL VOLUME 102.3 fL (80-100); MEAN CORPUSCULAR HEMOGLOBIN 34.7 pg (25-34); MEAN CORPUSCULAR HGB CONC 33.9 g/dl (32-36); MEAN PLATELET VOLUME 10.5 fL (7.4-10.4); MONO % 12.9 %; MONO ABS # 2.45 K/uL (0.11-0.59); NEUT % 59.2 %; NEUT ABS # 11.21 K/uL (1.4-6.5); PLATELET COUNT 391 K/uL (130-400); RED CELL DISTRIBUTION WIDTH CV 16.2 % (11.5-14.5); WHITE BLOOD COUNT 18.95 K/uL (4.8-10.8)
[2017-11-25] MEDS ORDERED: MoRPHine SULFATE 4 MG/ML 1 ML CARP\\VIAL IV PRN (10:00)
[2017-11-25] MEDS ORDERED: HEPARIN SOD 5000 UNIT/0.5 ML CARP SQ SCH (10:00)
[2017-11-25] MEDS ORDERED: FAMOTIDINE 20 MG TAB PO ONE (10:00)
[2017-11-25] MEDS ORDERED: NURSING VERBAL MED ORDER ONE (11:00)
--- NOTE | 2017-11-25 11:01 | DIAGNOSTIC IMAGING REPORT ---
ABDOMEN NO IV/ORAL CONT (CT) CT DOSE: 196.23 mGy.cm HISTORY: Pain. Nausea. upper abdominal pain, elev lipase, alk phos, multiple surgeries TECHNIQUE: Multiaxial CT images of the abdomen was performed without contrast. A dose lowering technique was utilized adhering to the principles of ALARA. COMPARISON STUDY: 07/22/2017 FINDINGS: Lung bases are considered clear. Cardiac calcification is unchanged in appearance and location. Mild peripheral calcification of liver is again noted. Mild capsular scarring with subtle nodularity suggesting mild cirrhotic change are nonprogressive. Diffuse fatty replacement of the pancreas. Dense calcification of the abdominal aorta as well as iliac vasculature. 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 This is unchanged from the prior study and is considered nonobstructive. Bowel pattern within the upper abdomen is nonobstructive. Mild compression deformity of T12 is unchanged. IMPRESSION: 1. No change as compared to the prior study.. 2. Extensive chronic change as described. 3. Mild hepatic cirrhosis unchanged. 4. [place] kidneys and spleen are surgically absent. The above report was generated using voice recognition software. It may contain grammatical, syntax or spelling errors. Electronically signed by: Sebastian Vidal M.D. 11/25/2017 10:59 AM Dictated Date/Time: 11/25/2017 10:53 AM
[2017-11-25 11:12] LABS: ALBUMIN 3.5 gm/dl (3.4-5.0); CALCIUM 7.8 mg/dl (8.5-10.1); CREATININE 7.54 mg/dl (0.60-1.40); TOTAL PROTEIN 7.9 gm/dl (6.4-8.2)
[2017-11-25 11:13] LABS: CKMB 1.6 ng/ml (0.5-3.6)
[2017-11-25] MEDS ORDERED: MoRPHine SULFATE 4 MG/ML 1 ML CARP\\VIAL IV ONE (11:15)
[2017-11-25] MEDS ORDERED: SIMETHICONE 80 MG CHEW PO PRN (12:15)
--- NOTE | 2017-11-25 12:17 | ECHOCARDIOGRAM REPORT ---
*NOTICE TO RECEIVING LIBERTARIAN AGENCY This information is strictly Confidential and protected under [place] law. [place] law prohibits you from making any further disclosure of this information unless further disclosure is expressly permitted by the written consent of the person to whom it pertains or is authorized by law. A general authorization for the release of medical or other information is not sufficient for this purpose. Hospital accepts no responsibility if the information is made available to any other person, INCLUDING THE PATIENT. Interpretation Summary * Name: FOSTER RENE Study Date: 11/25/2017 07:42 AM BP: 132/85 mmHg * Patient Location: [facility]\S\N279\S\1 HR: 82 * : 1965 (M/d/yyyy) Gender: Male Height: 66 in * Age: 52 yrs Ethnicity: [place] Weight: 147 lb * Ordering Physician: Mac Madsen * Performed By: Risa Mcgee RDCS * * Reason For Study: CHEST PAIN * BSA: 1.8 m2 * -- Conclusions -- * 1. Normal left ventricular size and systolic function. EF 55-60%. Severe hypokinesis to akinesis of the mid anteroseptum, distal inferior, and distal septal wall segments. Hypokinesis of the basal septal, base to mid inferior wall, and basal anteroseptum. Septal motion consistent with bundle-branch block. There appears to be severe concentric left ventricular hypertrophy. Type 1 diastolic dysfunction. * 2. Right ventricular systolic function appears reduced, but right ventricle not well visualized. * 3. Mild valvular aortic stenosis. * 4. There is mild mitral regurgitation. * 5. Technically difficult study, enhanced with IV Definity. * 6. Compared to prior study on 02/22/2017, transvalvular aortic velocities and gradients are mildly decreased compared to prior. Procedure Details * A complete two-dimensional transthoracic echocardiogram was performed (2D, M-mode, Doppler and color flow Doppler). * A contrast injection of Definity was performed to improve assessment of LV function. * Contrast was injected into an intravenous site in the right arm. * One vial of Definity ultrasound contrast was diluted in normal saline to a total volume of 10 ml. A total of '3' ml of solution was administered during imaging. * Lot # [id number] of Definity utilized for procedure. * Expiration date 09/13. * The attending nurse who injected the contrast agent was MARCIA MONK RN. Left Ventricle * Normal left ventricular size and systolic function. EF 55-60%. Severe hypokinesis to akinesis of the mid anteroseptum, distal inferior, and distal septal wall segments. Hypokinesis of the basal septal, base to mid inferior wall, and basal anteroseptum. Septal motion consistent with bundle-branch block. There appears to be severe concentric left ventricular hypertrophy. Type 1 diastolic dysfunction. Right Ventricle * The right ventricle is not well visualized. * Right ventricular systolic function appears reduced, but right ventricle not well visualized. Atria * The left atrial size is normal. * Right atrium not well visualized. * There is no evidence of atrial septal defect, but resolution does not allow assessment for a patent foramen ovale. Mitral Valve * There is mild to moderate mitral annular calcification. * There is no mitral valve stenosis. * There is mild mitral regurgitation. Tricuspid Valve * The tricuspid valve is not well visualized, but is grossly normal. * There is no tricuspid stenosis. * There is mild tricuspid regurgitation. Aortic Valve * Dimensionless index 0.38. * Mild valvular aortic stenosis. * Trace aortic regurgitation. Pulmonic Valve * The pulmonary valve is inadequately visualized, but the Doppler data is adequate for interpretation. * There is no pulmonic valvular stenosis. * Mild pulmonic valvular regurgitation. Great Vessels * The aortic root is normal size. Pericardium/Pleural * There is no pericardial effusion. Great Vessels * Normal IVC size with reduced inspiratory collapse. MMode 2D Measurements and Calculations Ao root diam 3.4 cm Ao root area 9.0 cm\S\2 ACS 1.2 cm asc Aorta Diam 3.7 cm LVOT diam 2.0 cm LVOT area 3.1 cm\S\2 LVAd ap4 31.9 cm\S\2 LVLd ap4 8.2 cm EDV(MOD-sp4) 100.0 ml EDV(sp4-el) 100.8 ml LVAs ap4 19.0 cm\S\2 LVLs ap4 7.3 cm ESV(MOD-sp4) 39.4 ml ESV(sp4-el) 47.3 ml EF(MOD-sp4) 60.6 % EF(sp4-el) 53.1 % LVAd ap2 32.6 cm\S\2 LVLd ap2 8.4 cm EDV(MOD-sp2) 105.0 ml LVAs ap2 18.3 cm\S\2 LVLs ap2 8.3 cm ESV(MOD-sp2) 32.8 ml EF(MOD-sp2) 68.8 % CO(MOD-sp4) 5.0 l/min CI(MOD-sp4) 2.8 l/min/m\S\2 SV(MOD-sp4) 60.6 ml SI(MOD-sp4) 34.5 ml/m\S\2 CO(MOD-sp2) 5.9 l/min CI(MOD-sp2) 3.4 l/min/m\S\2 SV(MOD-sp2) 72.2 ml SI(MOD-sp2) 41.1 ml/m\S\2 CO(sp4-el) 4.4 l/min CI(sp4-el) 2.5 l/min/m\S\2 SV(sp4-el) 53.6 ml SI(sp4-el) 30.5 ml/m\S\2 Doppler Measurements and Calculations MV E max parker 106.3 cm/sec MV A max parker 119.5 cm/sec MV E/A 0.89 MV dec time 0.28 sec Ao V2 max 291.1 cm/sec Ao max PG 34.0 mmHg Ao max PG (full) 29.2 mmHg Ao V2 mean 166.4 cm/sec Ao mean PG 13.6 mmHg Ao mean PG (full) 11.5 mmHg Ao V2 VTI 44.6 cm JAN(I,A) 1.4 cm\S\2 JNA(I,D) 1.4 cm\S\2 JAN(V,A) 1.2 cm\S\2 JAN(V,D) 1.2 cm\S\2 LV V1 max PG 4.8 mmHg LV V1 mean PG 2.1 mmHg LV V1 max 109.3 cm/sec LV V1 mean 66.5 cm/sec LV V1 VTI 20.8 cm MR max parker 505.6 cm/sec MR max PG 102.2 mmHg SV(Ao) 400.7 ml SI(Ao) 228.4 ml/m\S\2 SV(LVOT) 64.6 ml SI(LVOT) 36.8 ml/m\S\2 PA V2 max 66.8 cm/sec PA max PG 1.8 mmHg PI end-d parker 139.8 cm/sec RAP systole 8.0 mmHg
[2017-11-25] MEDS ORDERED: SODIUM CHLORIDE 0.9% 1000ML 1,000 ML IV SCH ×2 (13:00→18:15)
[2017-11-25] MEDS ORDERED: MoRPHine SULFATE 1 MG/ML 50 ML PCA CASS IV PRN (13:00)
[2017-11-25] MEDS ORDERED: MoRPHine SULFATE 4 MG/ML 1 ML CARP\\VIAL IV STA (13:00)
[2017-11-25] MEDS ORDERED: NALOXONE HCL 0.4 MG/1 ML VIAL/CARP IV PRN (13:00)
--- NOTE | 2017-11-25 13:37 | Family Medicine Progress Note ---
Progress Note Date of Service November 25, 2017. Subjective Pt evaluation today including: conversation w/ patient, physical exam, chart review, lab review Pain: 10/10 upper abdominal pain this AM PO Intake: renal diet Voiding: no voiding problems This AM pt reported severe upper abdominal pain with nausea. Pain not radiating to back. Per pt had gallbladder removed in 2017. Pt also reports dialysis session yesterday which causes "weird" abdominal pains. Constitutional: No fever Respiratory: No shortness of breath Cardiovascular: No chest pain Abdomen: + pain, + nausea, No vomiting Male : No dysuria Medications Current Inpatient Medications Medications (Trade) Dose Ordered Sig/Amanda Route Start Time Stop Time Status Last Admin Dose Admin Heparin Sodium (Porcine) (Heparin Sq 5000 Unit/0.5ml) 5,000 unit Q12 SQ 11/25/17 10:00 12/25/17 09:59 Acetaminophen (Tylenol Tab) 650 mg Q4H PRN PO 11/25/17 00:00 12/25/17 00:00 Nitroglycerin (Nitrostat Tab) 0.4 mg UD PRN SL 11/25/17 00:00 12/25/17 00:00 Atorvastatin Calcium (Lipitor Tab) 20 mg HS PO 11/25/17 21:00 12/25/17 20:59 Cilostazol (Pletal Tab) 50 mg DAILY PO 11/25/17 09:00 12/25/17 08:59 Future hold Clopidogrel Bisulfate (plAVix TAB) 75 mg DAILY PO 11/25/17 09:00 12/25/17 08:59 Isosorbide Mononitrate (Imdur Ext Rel Tab) 30 mg BID PO 11/25/17 09:00 12/25/17 08:59 11/25/17 11:58 30 MG Metoprolol Succinate (Toprol Xl Tab) 50 mg BID PO 11/25/17 09:00 12/25/17 08:59 11/25/17 11:59 50 MG Prednisone (PredniSONE TAB) 5 mg DAILY PO 11/25/17 09:00 12/25/17 08:59 Vitamin B Complex/ Vit C/Folic Acid (Nephrocaps) 1 cap DAILY PO 11/25/17 09:00 12/25/17 08:59 Sevelamer HCl (Renagel Tab) 1,600 mg TIDM PO 11/25/17 08:00 12/25/17 07:59 Miscellaneous Information (Order Awaiting Action) 1 ea QS N/A 11/25/17 08:00 12/25/17 07:59 Ondansetron HCl (Zofran Inj) 4 mg Q6H PRN IV 11/25/17 00:15 12/25/17 00:14 11/25/17 08:54 4 MG Miscellaneous (Iv Fluids Completed) 1 ea PRN PRN N/A 11/25/17 00:45 11/25/18 00:44 Pantoprazole Sodium (Protonix Tab) 40 mg BID PO 11/25/17 21:00 12/25/17 20:59 Morphine Sulfate (MoRPHine SULFATE INJ) 2mg for pain 1-4; 3mg ... Q2H PRN IV 11/25/17 10:00 12/09/17 09:59 11/25/17 12:32 4 MG Simethicone (Mylicon Chew Tab) 80 mg Q6H PRN PO 11/25/17 12:15 12/25/17 12:14 11/25/17 12:57 80 MG Morphine Sulfate (MoRPHine SULFATE INJ) 4 mg NOW STAT IV 11/25/17 13:00 11/25/17 13:01 UNV Naloxone HCl (Narcan Inj) 0.1 mg Q5M PRN IV 11/25/17 13:00 12/25/17 12:59 UNV Morphine Sulfate (moRPHine SULFATE ERP PROJECT MANAGER) 50 mg PRN PRN IV 11/25/17 13:00 12/09/17 12:59 UNV Docusate Sodium (coLACE CAP) 100 mg BID PO 11/25/17 21:00 12/25/17 20:59 UNV Sodium Chloride 1,000 ml @ 15 mls/hr Q24H IV 11/25/17 13:00 12/25/17 12:59 UNV Objective Vital Signs Date Time Temp Pulse Resp B/P (MAP) Pulse Ox O2 Delivery O2 Flow Rate FiO2 11/25/17 12:00 36.5 98 20 207/102 (137) 96 Room Air 11/25/17 12:00 Room Air 11/25/17 08:00 Room Air 11/25/17 07:32 36.6 82 18 132/85 (101) 94 Room Air 11/25/17 04:17 36.7 72 18 159/84 (109) 96 Room Air 11/25/17 04:00 Room Air 11/25/17 01:07 36.9 73 20 169/88 94 Room Air 11/25/17 00:25 36.9 73 20 169/88 (115) 94 Room Air 11/25/17 00:06 82 18 167/99 98 Room Air 11/24/17 22:06 71 18 129/77 95 Room Air 11/24/17 20:58 72 11/24/17 20:06 37.0 88 18 144/87 96 Room Air 11/24/17 20:06 96 Room Air 11/24/17 20:06 96 Room Air Physical Exam General Appearance: + moderate distress (writing in pain ) Eyes: normal inspection Neck: supple Respiratory/Chest: lungs clear, normal breath sounds Cardiovascular: regular rate, rhythm, no murmur Abdomen: non tender, soft, + abnormal bowel sounds (hypoactive) Extremities: non-tender, no pedal edema Neurologic/Psychiatric: alert Skin: warm/dry Laboratory Results 11/25/17 06:39 Red Blood Count 4.27, Mean Corpuscular Volume 102.3, Mean Corpuscular Hemoglobin 34.7, Mean Corpuscular Hemoglobin Concent 33.9, Mean Platelet Volume 10.5, Neutrophils (%) (Auto) 59.2, Lymphocytes (%) (Auto) 23.9, Monocytes (%) ( Auto) 12.9, Eosinophils (%) (Auto) 3.3, Basophils (%) (Auto) 0.3, Neutrophils # (Auto) 11.21, Lymphocytes # (Auto) 4.53, Monocytes # (Auto) 2.45, Eosinophils # (Auto) 0.63, Basophils # (Auto) 0.05 11/25/17 10:19 Test 11/24/17 22:10 11/24/17 22:12 11/25/17 06:39 11/25/17 10:19 Direct Bilirubin 0.2 mg/dl (0-0.2) Bedside Troponin I 0.030 ng/ml (0-0.045) White Blood Count 18.95 K/uL (4.8-10.8) Red Blood Count 4.27 M/uL (4.7-6.1) Hemoglobin 14.8 g/dL (14.0-18.0) Hematocrit 43.7 % (42-52) Mean Corpuscular Volume 102.3 fL (80-100) Mean Corpuscular Hemoglobin 34.7 pg (25-34) Mean Corpuscular Hemoglobin Concent 33.9 g/dl (32-36) Platelet Count 391 K/uL (130-400) Mean Platelet Volume 10.5 fL (7.4-10.4) Neutrophils (%) (Auto) 59.2 % Lymphocytes (%) (Auto) 23.9 % Monocytes (%) (Auto) 12.9 % Eosinophils (%) (Auto) 3.3 % Basophils (%) (Auto) 0.3 % Neutrophils # (Auto) 11.21 K/uL (1.4-6.5) Lymphocytes # (Auto) 4.53 K/uL (1.2-3.4) Monocytes # (Auto) 2.45 K/uL (0.11-0.59) Eosinophils # (Auto) 0.63 K/uL (0-0.5) Basophils # (Auto) 0.05 K/uL (0-0.2) RDW Standard Deviation 61.0 fL (36.4-46.3) RDW Coefficient of Variation 16.2 % (11.5-14.5) Immature Granulocyte % (Auto) 0.4 % Immature Granulocyte # (Auto) 0.08 K/uL (0.00-0.02) Prothrombin Time 10.9 SECONDS (9.0-12.0) Prothromb Time International Ratio 1.0 (0.9-1.1) Anion Gap 10.0 mmol/L (3-11) Est Creatinine Clear Calc Drug Dose 10.5 ml/min Estimated GFR () 8.7 Estimated GFR (Non- 7.5 BUN/Creatinine Ratio 6.4 (10-20) Calcium Level 7.8 mg/dl (8.5-10.1) Total Bilirubin 0.7 mg/dl (0.2-1) Aspartate Amino Transf (AST/SGOT) 32 U/L (15-37) Alanine Aminotransferase (ALT/SGPT) 41 U/L (12-78) Alkaline Phosphatase 707 U/L (45-117) Total Creatine Kinase 44 U/L (39-308) Creatine Kinase MB 1.6 ng/ml (0.5-3.6) Creatine Kinase MB Ratio 3.6 (0-3.0) Troponin I 0.019 ng/ml (0-0.045) Total Protein 7.9 gm/dl (6.4-8.2) Albumin 3.5 gm/dl (3.4-5.0) Globulin 4.4 gm/dl (2.5-4.0) Albumin/Globulin Ratio 0.8 (0.9-2) Lipase 305 U/L (73-393) Test 11/25/17 12:17 Lactic Acid Level 2.1 mmol/L (0.4-2.0) Assessment and Plan 52y/oM with hx of CAD/[place] s/p CABG and stent placement in bypass graft in february 2017, hx of splenectomy and bilateral nephrectomy on HD, pancreatitis, C. diff colitis, cirrhosis who presented with L sided chest pain after argument with son. However chest pain was unusual and not in jaw/axillary region like anginal pain and not relieved by 3 SL nitros at home and 3 SL nitros by EMS in addition to aspirin 324mg. Pain was worse with deep breathing. This AM pt reported upper abdominal pain with nausea. CT abdomen unchanged with chronic changes and not concerning for obstruction. However, pt has significant vascular calcification on CT and given severe pain inconsistent with exam findings concern for ischemic bowel. Severe abdominal pain w/t nausea concern for ischemia vs. cholangitis vs. pancreatitis - Exam no TTP of abdomen, hypoactive bowel sounds - CT abdomen: unchanged with chronic changes, no pancreatitis, no bowel obstruction, has a non-obstructing R lateral spiculation hernia, lung bases clear, vascular/organ calcification - WBC elevated to 19 (baseline around 15 due to splenectomy) - Lactate 2.1 - Alk phos 707 - Lipase initially 405 improved to 305 - hemeoccult - serial exams - GI consulted Left-sided chest pain/CAD/status post CABG/status post stent placement in SVG to LPLB graft February 2017 - Serial troponins neg - EKG unchanged - ECHO EF 55-60%, nl LV size/function, severe hypokinesis/akinesis of septum c/ w BBB, diastolic type 1 dysfunction, mild aortic stenosis, mild mitral regurg - Continue home clopidogrel 75mg PO daily, Imdur extended release 30mg PO BID, and metoprolol succinate ER 50mg PO BID - Morphine sulfate 4 mg IV Q2H PRN - Consulted gre tutor Dr. Molina: pain unlikely to be cardiac in nature, unchanged EKG, ECHO and neg troponin PVD/right iliac artery stenosis - Continue home Pletal 50mg PO daily - Finished course of PT to improve collateral flow Hyperlipidemia - Continue home atorvastatin 20mg PO QHS ESRD on HD s/p bilateral nephrectomy - Continue home Sensipar 60mg PO QHS, Renvela 1600mg PO TID w/t meals, Nephrocaps 1 PO daily, and prednisone 5mg PO daily - Status post dialysis on 11/24 - Consulted case finishing machine adjuster Dr. Azevedo GERD - Continue home pantoprazole 40mg PO QHS Code: Full DVT: Heparin SQ Resident Involvement: Resident Care Provided Care Provided: Adult Hospital Medicine
[2017-11-25] MEDS ORDERED: HYDROmorphone HCL 0.5MG/ML 50 ML CASSETTE IV PRN (14:00)
[2017-11-25] MEDS ORDERED: SODIUM CHLORIDE 0.9% 1000ML 1,000 ML IV PRN (14:10)
[2017-11-25] MEDS ORDERED: OPTIRAY 320 IV PRN (15:30)
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
--- NOTE | 2017-11-25 15:45 | Gastrointestinal Consultation ---
Gastrointestinal Consultation Date of Consultation: November 25, 2017 Attending Physician: Dr. Sanz Consulting Physician: Joan Ndiaye PA-C Reason for Consultation: Abdominal pain History of Present Illness Patient is a 52 year old male with a past medical history of coronary artery disease s/p CABG, stent placement, bypass graft in February 2017, along with a history of severe peptic ulcer disease, H Pylori, cirrhosis, lower GI bleeding, and multiple failed kidney transplants who presented to [facility] due to left sided chest pain. Since admission, the patient has developed abdominal pain that seems to be evolving in severity. At the time of my evaluation, he reports he is experiencing 10/10 abdominal pain and has extreme tenderness on exam. His most recent lactic acid is 2.1. He reports that he has not struggled with heartburn or epigastric abdominal pain since faithfully taking his PPI. He does mention that last week he let his prescription for Protonix lapse for 2 days but resumed therapy without any symptoms. He reports the abdominal pain has not really been an issue until today. He denies diarrhea, constipation, nausea, vomiting, or any GI bleeding. He reports his symptoms are different than his previous GI issues. He had his gallbladder removed at [facility] in 2016. He has significant vascular issues and follows with [facility] in [place]. He had a CTA in July 2017 that indicated 70-80% stenosis of the distal aorta among occlusion of his iliacs as well. He was seen in August 2017 by their team and it was determined that due to his multiple medical comorbidities he would not be a good candidate for reconstruction of the aorta. He was to follow-up with them in several months time. He had an EGD in February 2017 that was unremarkable. He has been taking Protonix therapy (40 mg daily) for quite some time. He had a colonoscopy during that February 2017 admission due to rectal bleeding. At that time, he was on Octreotide and was injected with epinephrine, but due to significant GI bleeding and anemia requiring transfusion, he was transferred to [facility] due to the risk of re-bleeding. He reports that while hospitalized there, no further interventions were made. He reports that the bleeding stopped on its own. He is due for hemodialysis on 11/26/17. He had an unenhanced CT scan of the abdomen/pelvis that was unremarkable on 5/3. It should be noted that he also has a right sided hernia that contains several loops of small bowel but per old imaging in outpatient charts, it appears that this finding has been stable and present since July 2017 at minimum. His lactic acid was 2.1. His initial lipase was 405 but has since decreased to 305. His WBC count is elevated to 18.95. He is on chronic Prednisone therapy & has a history of a splenectomy. H/ H is higher than his baseline. Past Medical/Surgical History Medical Problems: (1) Acute coronary syndrome Status: Acute (2) Atrial flutter with rapid ventricular response Status: Acute (3) Chest pain Status: Acute (4) Chest pain Status: Acute (5) Chest pain Status: Acute (6) Elevated troponin Status: Acute (7) Elevated troponin Status: Acute (8) Elevated troponin Status: Acute (9) End stage renal disease Status: Acute (10) Epistaxis Status: Acute (11) ESRD (end stage renal disease) Status: Acute (12) Gastritis Status: Acute (13) GI bleed Status: Acute (14) GI bleed Status: Acute (15) Hyperbilirubinemia Status: Acute (16) Left sided chest pain Status: Acute (17) Leg pain, right Status: Acute (18) Lower GI bleeding Status: Acute (19) Peptic ulcer disease Status: Acute (20) Peripheral vascular disease Status: Acute (21) Precordial chest pain Status: Acute (22) RUQ abdominal pain Status: Acute (23) Sepsis Status: Acute (24) Sepsis Status: Acute (25) Severe anemia Status: Acute (26) Substernal precordial chest pain Status: Acute (27) Unstable angina Status: Acute (28) Upper abdominal pain Status: Acute (29) Wrist pain, left Status: Acute Social History Problems: (1) H/O splenectomy Status: Acute Past Medical History: coronary artery disease s/p CABG, stent placement, bypass graft in February 2017 , along with a history of severe peptic ulcer disease, H Pylori, cirrhosis, lower GI bleeding, and multiple failed kidney transplants on hemodialysis Past Surgical History: Cholecystectomy, fistula placement, colonoscopy, EGD, kidney transplant x 3, CABG Family History FH: heart disease Social History Smoking Status: Never Smoker Alcohol Use: none Drug Use: none Marital Status: Housing Status: lives with significant other Occupation Status: employed, disabled Allergies Coded Allergies: POLLEN (Verified Allergy, Unknown, "HAYFEVER", 07/22/17) Diazoxide (Verified Adverse Reaction, Intermediate, ELEVATE BP;N&V, ) NSAIDs (Verified Adverse Reaction, Unknown, KIDNEY TRANSPLANT, 07/22/17) Current Medications Home Meds and Scripts Medications Dose Route/Sig Max Daily Dose Days Date Category Dose Instructions Pletal (Cilostazol) 50 Mg Tab 50 Mg PO DAILY 11/24/17 Reported Metoprolol Succinate ER (Metoprolol Succinate) 50 Mg Tabcr 50 Mg PO BID 11/24/17 Reported Oxycodone HCl 5 Mg Tab 5 Mg PO Q8 PRN 11/24/17 Reported Protonix (Pantoprazole Sodium) 40 Mg Tab 40 Mg PO QPM 06/24/17 Reported Imdur Ext Rel (Isosorbide Mononitrate) 30 Mg Tabcr 30 Mg PO BID 03/04/17 Reported Nitrostat (Nitroglycerin) 0.4 Mg Tab 0.4 Mg UT UD PRN 12/11/[address] ONE TABLET UNDER THE TONGUE EVERY 5 MINUTES FOR UP TO 3 DOSES OVER 15 MINUTES IF NEEDED FOR CHEST PAIN Prednisone 5 Mg Tab 5 Mg PO DAILY 11/18/16 Reported Renvela (Sevelamer Carbonate) 800 Mg Tab 1,600 Mg PO TIDM 11/18/16 Reported Nephrocaps (Vitamin B Complex/Vit C/Folic Acid) Cap 1 Cap PO DAILY 08/13/16 Reported Clopidogrel (Clopidogrel Bisulfate) 75 Mg Tab 75 Mg PO DAILY 08/13/16 Reported Lipitor (Atorvastatin Calcium) 20 Mg Tab 20 Mg PO HS 08/13/16 Reported Sensipar (Cinacalcet) 30 Mg Tab 60 Mg PO QPM 08/13/16 Reported Review of Systems Constitutional: No fever, No chills, No problem reported Eyes: No worsening of vision Respiratory: No cough Cardiac: + chest pain Abdomen: + pain, No nausea, No vomiting, No diarrhea, No constipation, No GI bleeding, No dysphagia, No jaundice Musculoskeletal: No joint pain Neuro: No problem reported Heme: No problem reported Skin: No problem reported Physical Exam Date Time Temp Pulse Resp B/P (MAP) Pulse Ox O2 Delivery O2 Flow Rate FiO2 11/25/17 12:00 36.5 98 20 207/102 (137) 96 Room Air 11/25/17 12:00 Room Air 11/25/17 08:00 Room Air 11/25/17 07:32 36.6 82 18 132/85 (101) 94 Room Air 11/25/17 04:17 36.7 72 18 159/84 (109) 96 Room Air 11/25/17 04:00 Room Air 11/25/17 01:07 36.9 73 20 169/88 94 Room Air 11/25/17 00:25 36.9 73 20 169/88 (115) 94 Room Air 11/25/17 00:06 82 18 167/99 98 Room Air 11/24/17 22:06 71 18 129/77 95 Room Air 11/24/17 20:58 72 11/24/17 20:06 37.0 88 18 144/87 96 Room Air 11/24/17 20:06 96 Room Air 11/24/17 20:06 96 Room Air General Appearance: + moderate distress Eyes: normal inspection, PERRL ENT: hearing grossly normal Respiratory/Chest: lungs clear, normal breath sounds Cardiovascular: regular rate, rhythm Abdomen: normal bowel sounds, + tenderness Extremities: non-tender Neurologic/Psych: alert, oriented x 3 Laboratory Results Last 24 Hours Test 11/24/17 20:33 11/24/17 20:36 11/24/17 22:10 11/24/17 22:12 White Blood Count 14.76 K/uL Red Blood Count 3.96 M/uL Hemoglobin 13.8 g/dL Hematocrit 40.1 % Mean Corpuscular Volume 101.3 fL Mean Corpuscular Hemoglobin 34.8 pg Mean Corpuscular Hemoglobin Concent 34.4 g/dl Platelet Count 346 K/uL Mean Platelet Volume 10.1 fL Neutrophils (%) (Auto) 56.3 % Lymphocytes (%) (Auto) 24.6 % Monocytes (%) (Auto) 15.5 % Eosinophils (%) (Auto) 3.0 % Basophils (%) (Auto) 0.3 % Neutrophils # (Auto) 8.29 K/uL Lymphocytes # (Auto) 3.63 K/uL Monocytes # (Auto) 2.29 K/uL Eosinophils # (Auto) 0.45 K/uL Basophils # (Auto) 0.05 K/uL RDW Standard Deviation 59.8 fL RDW Coefficient of Variation 16.1 % Immature Granulocyte % (Auto) 0.3 % Immature Granulocyte # (Auto) 0.05 K/uL Sodium Level 137 mmol/L Potassium Level mmol/L 4.8 mmol/L Chloride Level 99 mmol/L Carbon Dioxide Level 31 mmol/L Anion Gap 7.0 mmol/L Blood Urea Nitrogen 32 mg/dl Creatinine 5.91 mg/dl Est Creatinine Clear Calc Drug Dose 13.3 ml/min Estimated GFR () 11.7 Estimated GFR (Non- 10.1 BUN/Creatinine Ratio 5.3 Random Glucose 103 mg/dl Calcium Level 7.8 mg/dl Total Bilirubin 0.5 mg/dl Direct Bilirubin mg/dl 0.2 mg/dl Aspartate Amino Transf (AST/SGOT) U/L 30 U/L Alanine Aminotransferase (ALT/SGPT) 40 U/L Alkaline Phosphatase 696 U/L Total Protein 7.7 gm/dl Albumin 3.3 gm/dl Lipase 405 U/L Bedside Troponin I 0.040 ng/ml 0.030 ng/ml Test 11/25/17 06:39 11/25/17 10:19 11/25/17 12:17 White Blood Count 18.95 K/uL Red Blood Count 4.27 M/uL Hemoglobin 14.8 g/dL Hematocrit 43.7 % Mean Corpuscular Volume 102.3 fL Mean Corpuscular Hemoglobin 34.7 pg Mean Corpuscular Hemoglobin Concent 33.9 g/dl Platelet Count 391 K/uL Mean Platelet Volume 10.5 fL Neutrophils (%) (Auto) 59.2 % Lymphocytes (%) (Auto) 23.9 % Monocytes (%) (Auto) 12.9 % Eosinophils (%) (Auto) 3.3 % Basophils (%) (Auto) 0.3 % Neutrophils # (Auto) 11.21 K/uL Lymphocytes # (Auto) 4.53 K/uL Monocytes # (Auto) 2.45 K/uL Eosinophils # (Auto) 0.63 K/uL Basophils # (Auto) 0.05 K/uL RDW Standard Deviation 61.0 fL RDW Coefficient of Variation 16.2 % Immature Granulocyte % (Auto) 0.4 % Immature Granulocyte # (Auto) 0.08 K/uL Prothrombin Time 10.9 SECONDS Prothromb Time International Ratio 1.0 Sodium Level 139 mmol/L Potassium Level 5.0 mmol/L Chloride Level 101 mmol/L Carbon Dioxide Level 28 mmol/L Anion Gap 10.0 mmol/L Blood Urea Nitrogen 49 mg/dl Creatinine 7.54 mg/dl Est Creatinine Clear Calc Drug Dose 10.5 ml/min Estimated GFR () 8.7 Estimated GFR (Non- 7.5 BUN/Creatinine Ratio 6.4 Random Glucose 114 mg/dl Calcium Level 7.8 mg/dl Total Bilirubin 0.7 mg/dl Aspartate Amino Transf (AST/SGOT) 32 U/L Alanine Aminotransferase (ALT/SGPT) 41 U/L Alkaline Phosphatase 707 U/L Total Creatine Kinase 44 U/L Creatine Kinase MB 1.6 ng/ml Creatine Kinase MB Ratio 3.6 Troponin I 0.019 ng/ml Total Protein 7.9 gm/dl Albumin 3.5 gm/dl Globulin 4.4 gm/dl Albumin/Globulin Ratio 0.8 Lipase 305 U/L Lactic Acid Level 2.1 mmol/L Impression Patient is a 52 year old male with severe abdominal pain out of proportion to his exam findings that has progressed significantly throughout the day. He has a history of peptic ulcers as well as a recent CTA indicated 70-80% occlusion of his distal aorta. Plan 1) CTA to exclude acute abnormalities contributing to his abdominal pain. Patient is to be dialyzed on 11/26/17. 2) Given his lactic acid of 2.1, would repeat this study. 3) Protonix 40 mg BID. 4) Add Ranitidine 150 mg BID. 5) Carafate 1 gm four times daily before meals and at bedtime. 6) Will make further recommendations regarding potential endoscopic evaluation pending results of CTA. The patient is not experiencing any GI bleed, is on BID PPI therapy, and his hemoglobin is well above baseline. 7) Supportive care per primary team. Thank you for allowing us to participate in the care of this patient. If you should have any further questions or concerns, do not hesitate to contact us. Agree with KATE Fritz as above Abd: Soft, Tender in Mid-abdomen to touch, though improved when distracted, ND Reviewed CTA with Dr. Don, he has significant vascular disease of the Celiac and SMA and little flow through the MARTHA Consider consult to Dr. Wyman for his opinion, however, I am unsure what can be offered at this time. No role for endoscopic evaluation at this time as patient is on twice daily PPI therapy, has no overt GI bleeding or other alarm symptoms at this time. Continue supportive care
[2017-11-25] MEDS ORDERED: SUCRALFATE 1 GM/10 ML UDC PO SCH (17:00)
--- NOTE | 2017-11-25 17:19 | DIAGNOSTIC IMAGING REPORT ---
ADDENDUM Findings were discussed with Dr. Sibley at the time of interpretation. Electronically signed by: Neil Don M.D. 11/25/2017 5:30 PM Dictated Date/Time: 11/25/2017 5:[address] ANGIOGRAM OF THE CHEST, ABDOMEN, AND PELVIS WITH IV CONTRAST CLINICAL HISTORY: Atypical chest pain. Generalized abdominal pain. Severe vascular disease. COMPARISON STUDY: Chest x-ray dated 11/24/2017. Abdominal CT scan dated 11/25/2017. TECHNIQUE: Following the IV administration of 94 cc of Optiray 320, CT angiogram of the chest, abdomen, and pelvis was performed from the thoracic inlet to the proximal femora. Images are reviewed in the axial, sagittal, and coronal planes. 3-D MIPS images are created and assessed. IV contrast was administered without complication. A dose lowering technique was utilized adhering to the principles of ALARA. CT DOSE: 472.76 mGy.cm FINDINGS: CHEST: Thyroid: Imaged portions of the thyroid gland are atrophic. Thoracic aorta: There is advanced atherosclerotic calcification of the thoracic aorta. The thoracic aorta is normal in caliber and the arch demonstrates bovine variant anatomy. The arch vessels are patent. No dissection is seen. Pulmonary vasculature: The pulmonary trunk is dilated, measuring 3.7 cm in diameter. This suggests pulmonary hypertension. There are no filling defects identified in the central pulmonary vessels to indicate pulmonary embolus. Note that this examination was not protocoled for evaluation of the pulmonary arteries. Heart: The patient is status post midline sternotomy. The heart is enlarged and without pericardial effusion. The coronary arteries are densely calcified. Lungs and pleural spaces: Evaluation of the lung parenchyma is degraded by motion artifact. Emphysematous change is suspected. There is no airspace consolidation or pleural effusion. The trachea and central airways are clear. There is a 4 mm left lower lobe pulmonary nodule seen on image #160. A 3 mm left lower lobe nodule is seen on image #182 Mediastinum: There is no mediastinal lymphadenopathy. Meg: Clear. Axillae: There is no axillary lymphadenopathy. Bony thorax: The skeletal structures are osteopenic. There is a moderate compression deformity of T12. Additional milder compression deformities are seen throughout the thoracic spine. No lytic or blastic lesions are identified. Arthritic change is seen in the shoulders. ABDOMEN AND PELVIS: Liver: The contrast-enhanced liver is cirrhotic in morphology and heterogeneous in attenuation. Heterogeneous subcapsular perfusion likely represents shunt vascularity. There is minimal central intrahepatic biliary ductal dilatation. There is pneumobilia versus portal venous gas. Gallbladder: Surgically absent. Spleen: Surgically absent. Pancreas: Atrophic and grossly unremarkable. Adrenal glands: Unremarkable. Kidneys: The kidneys are surgically absent. Abdominal aorta and iliac arteries: There is advanced atherosclerotic calcification of the abdominal aorta and iliac arteries. No dissection is identified. The proximal and mid portions of the abdominal aorta are widely patent. There is greater than 75% stenosis of the distal abdominal aorta above the iliac bifurcation. There is advanced atherosclerotic calcification of the right common iliac artery with near-complete to complete occlusion. There is reconstitution in the mid to distal right common iliac artery with trace flow. The right external iliac artery is patent, as is the right common femoral artery and the origin of the superficial femoral artery. There is likely segmental occlusion of the right internal iliac artery. The left common iliac artery is patent noting advanced atherosclerotic plaque. There is high-grade stenosis at the origin of the left internal iliac artery which appears patent. The left external iliac artery, the left common femoral artery, and the proximal superficial femoral artery appear patent. Major branches of the abdominal aorta: There is extensive atherosclerotic plaque with near complete occlusion at the origin of the celiac trunk. There is advanced atherosclerotic plaque with near-complete to complete occlusion at the origin of the superior mesenteric artery. There is high grade stenosis or the proximal and mid portions of the superior mesenteric artery which maintain trace flow. There is near complete thrombosis of the splenic vein. The inferior mesenteric artery appears patent. The hepatic artery is patent and demonstrates conventional anatomy. The [place] renal arteries are occluded. Stomach and bowel: There is a small hiatal hernia. The duodenum is normal in configuration. No bowel obstruction is seen. There is extensive pneumatosis intestinalis seen throughout the small bowel, greatest involving the jejunum. There is associated mesenteric venous gas. No focally thick walled bowel loops are identified. There is mild colonic diverticulosis without CT evidence of acute diverticulitis. The appendix is well-visualized and normal.. There is a large hernia in the right ventral pelvis which contains nonobstructed loops of small bowel and colon. There is overlying the hernia mesh. Peritoneum: There is no intraperitoneal free air or abdominal ascites. Lymphadenopathy: None. Pelvic viscera: A calcified soft tissue structure in the right pelvis likely represents a failed renal transplant. 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 The bladder is decompressed and not well evaluated. The prostate and seminal vesicles are normal as imaged. Skeletal structures: The skeletal structures are osteopenic. No lytic or blastic lesions are seen. IMPRESSION: 1. There is extensive pneumatosis intestinalis identified throughout the small bowel, greatest involving the jejunum. There is associated mesenteric venous gas and possibly portal venous gas. The appearance is highly concerning for mesenteric ischemia. This is a new finding from today's earlier unenhanced examination. 2. No focally thick walled bowel loop is identified. No intraperitoneal free air is seen. 3. Cardiomegaly, emphysema, and cirrhosis. 4. Advanced atherosclerotic disease is identified throughout the vasculature. 5. There is no aneurysm or dissection seen involving the thoracic aorta. 6. There is advanced atherosclerotic calcification of the abdominal aorta with greater than 75% stenosis of the distal abdominal aorta. 7. There is high-grade stenosis with near-complete complete occlusion of the right common iliac artery. 8. There is high-grade stenosis with near complete occlusion at the origin of the celiac trunk. 9. There is near complete to complete occlusion at the origin of the superior mesenteric artery with extensive nearly occlusive plaque in the proximal to mid portions. 10. There is no airspace consolidation or pleural effusion. 11. There are 2 left lower lobe pulmonary nodules measure up to 4 mm which are pathologically indeterminant. 12. The spleen and [place] kidneys are surgically absent. 13. There is a large hernia in the right ventral pelvis which contains loops of small bowel and colon. 14. Additional findings as above. Electronically signed by: Neil Don M.D. 11/25/2017 5:17 PM Dictated Date/Time: 11/25/2017 4:51 PM
[2017-11-25] MEDS ORDERED: PIPERACILL/TAZOBAC IV 4.5 GM in DEXTROSE 5% 100ML 100 ML IV SCH (17:45)
[2017-11-25] MEDS ORDERED: PIPERACILL/TAZOBAC CONSULT ACTIVE PRN (17:45)
[2017-11-25] MEDS ORDERED: PIPERACILL/TAZOBAC IV 3.375 GM in NSS 100 ML IV ONE (18:00)
[2017-11-25] MEDS ORDERED: PIPE1INJ11 IV (18:18)
[2017-11-25] MEDS ORDERED: HYDR1INJ48 IV (18:18)
[2017-11-25] MEDS ORDERED: HPRIS5M SQ (18:18)
--- NOTE | 2017-11-25 18:18 | Discharge Instructions ---
Discharge Instructions Date of Service November 25, 2017. Admission Reason for Admission: Esrd, Left Sided Chest Pain Discharge Discharge Diagnosis / Problem: acute mesenteric ischemia Discharge Goals Goal(s): Decrease discomfort, Diagnostic testing, Therapeutic intervention Activity Recommendations Activity Limitations: resume your previous activity . Current Hospital Diet Patient's current hospital diet: Renal Diet Discharge Diet Recommended Diet: AHA Diet (Heart Healthy) Pending Studies Studies pending at discharge: no Medical Emergencies . Who to Call and When: Medical Emergencies: If at any time you feel your situation is an emergency, please call 911 immediately. . Non-Emergent Contact Non-Emergency issues call your: Primary Care Provider . . "Provider Documentation" section prepared by Shane Garcia. .
--- NOTE | 2017-11-25 18:25 | Discharge Summary ---
Discharge Summary Date of Service November 25, 2017. Discharge Summary Admission Date: November 25, 2017 at 13:01 Discharge Date: November 25, 2017 Discharge Disposition: Acute care facility Principal Diagnosis: acute mesenteric ischemia Problems/Secondary Diagnoses: CAD s/p CABG ESRD on HD PVD HLD GERD Immunizations: Have You Had Influenza Vaccine: No Influenza Vaccine Date: May 03, 2008 History of Tetanus Vaccine?: Unknown Tetanus Immunization Date: Oct 06, 2000 History of Pneumococcal: No Pneumococcal Date: Oct 06, 2005 History of Hepatitis B Vaccine: Unknown Hepatitis Immunization Date: Oct 06, 2000 Procedures: CT ANGIOGRAM OF THE CHEST, ABDOMEN, AND PELVIS WITH IV CONTRAST CLINICAL HISTORY: Atypical chest pain. Generalized abdominal pain. Severe vascular disease. COMPARISON STUDY: Chest x-ray dated 11/24/2017. Abdominal CT scan dated 11/25/2017. TECHNIQUE: Following the IV administration of 94 cc of Optiray 320, CT angiogram of the chest, abdomen, and pelvis was performed from the thoracic inlet to the proximal femora. Images are reviewed in the axial, sagittal, and coronal planes. 3-D MIPS images are created and assessed. IV contrast was administered without complication. A dose lowering technique was utilized adhering to the principles of ALARA. CT DOSE: 472.76 mGy.cm FINDINGS: CHEST: Thyroid: Imaged portions of the thyroid gland are atrophic. Thoracic aorta: There is advanced atherosclerotic calcification of the thoracic aorta. The thoracic aorta is normal in caliber and the arch demonstrates bovine variant anatomy. The arch vessels are patent. No dissection is seen. Pulmonary vasculature: The pulmonary trunk is dilated, measuring 3.7 cm in diameter. This suggests pulmonary hypertension. There are no filling defects identified in the central pulmonary vessels to indicate pulmonary embolus. Note that this examination was not protocoled for evaluation of the pulmonary arteries. Heart: The patient is status post midline sternotomy. The heart is enlarged and without pericardial effusion. The coronary arteries are densely calcified. Lungs and pleural spaces: Evaluation of the lung parenchyma is degraded by motion artifact. Emphysematous change is suspected. There is no airspace consolidation or pleural effusion. The trachea and central airways are clear. There is a 4 mm left lower lobe pulmonary nodule seen on image #160. A 3 mm left lower lobe nodule is seen on image #182 Mediastinum: There is no mediastinal lymphadenopathy. Meg: Clear. Axillae: There is no axillary lymphadenopathy. Bony thorax: The skeletal structures are osteopenic. There is a moderate compression deformity of T12. Additional milder compression deformities are seen throughout the thoracic spine. No lytic or blastic lesions are identified. Arthritic change is seen in the shoulders. ABDOMEN AND PELVIS: Liver: The contrast-enhanced liver is cirrhotic in morphology and heterogeneous in attenuation. Heterogeneous subcapsular perfusion likely represents shunt vascularity. There is minimal central intrahepatic biliary ductal dilatation. There is pneumobilia versus portal venous gas. Gallbladder: Surgically absent. Spleen: Surgically absent. Pancreas: Atrophic and grossly unremarkable. Adrenal glands: Unremarkable. Kidneys: The kidneys are surgically absent. Abdominal aorta and iliac arteries: There is advanced atherosclerotic calcification of the abdominal aorta and iliac arteries. No dissection is identified. The proximal and mid portions of the abdominal aorta are widely patent. There is greater than 75% stenosis of the distal abdominal aorta above the iliac bifurcation. There is advanced atherosclerotic calcification of the right common iliac artery with near-complete to complete occlusion. There is reconstitution in the mid to distal right common iliac artery with trace flow. The right external iliac artery is patent, as is the right common femoral artery and the origin of the superficial femoral artery. There is likely segmental occlusion of the right internal iliac artery. The left common iliac artery is patent noting advanced atherosclerotic plaque. There is high-grade stenosis at the origin of the left internal iliac artery which appears patent. The left external iliac artery, the left common femoral artery, and the proximal superficial femoral artery appear patent. Major branches of the abdominal aorta: There is extensive atherosclerotic plaque with near complete occlusion at the origin of the celiac trunk. There is advanced atherosclerotic plaque with near-complete to complete occlusion at the origin of the superior mesenteric artery. There is high grade stenosis or the proximal and mid portions of the superior mesenteric artery which maintain trace flow. There is near complete thrombosis of the splenic vein. The inferior mesenteric artery appears patent. The hepatic artery is patent and demonstrates conventional anatomy. The [place] renal arteries are occluded. Stomach and bowel: There is a small hiatal hernia. The duodenum is normal in configuration. No bowel obstruction is seen. There is extensive pneumatosis intestinalis seen throughout the small bowel, greatest involving the jejunum. There is associated mesenteric venous gas. No focally thick walled bowel loops are identified. There is mild colonic diverticulosis without CT evidence of acute diverticulitis. The appendix is well-visualized and normal.. There is a large hernia in the right ventral pelvis which contains nonobstructed loops of small bowel and colon. There is overlying the hernia mesh. Peritoneum: There is no intraperitoneal free air or abdominal ascites. Lymphadenopathy: None. Pelvic viscera: A calcified soft tissue structure in the right pelvis likely represents a failed renal transplant. 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 The bladder is decompressed and not well evaluated. The prostate and seminal vesicles are normal as imaged. Skeletal structures: The skeletal structures are osteopenic. No lytic or blastic lesions are seen. IMPRESSION: 1. There is extensive pneumatosis intestinalis identified throughout the small bowel, greatest involving the jejunum. There is associated mesenteric venous gas and possibly portal venous gas. The appearance is highly concerning for mesenteric ischemia. This is a new finding from today's earlier unenhanced examination. 2. No focally thick walled bowel loop is identified. No intraperitoneal free air is seen. 3. Cardiomegaly, emphysema, and cirrhosis. 4. Advanced atherosclerotic disease is identified throughout the vasculature. 5. There is no aneurysm or dissection seen involving the thoracic aorta. 6. There is advanced atherosclerotic calcification of the abdominal aorta with greater than 75% stenosis of the distal abdominal aorta. 7. There is high-grade stenosis with near-complete complete occlusion of the right common iliac artery. 8. There is high-grade stenosis with near complete occlusion at the origin of the celiac trunk. 9. There is near complete to complete occlusion at the origin of the superior mesenteric artery with extensive nearly occlusive plaque in the proximal to mid portions. 10. There is no airspace consolidation or pleural effusion. 11. There are 2 left lower lobe pulmonary nodules measure up to 4 mm which are pathologically indeterminant. 12. The spleen and [place] kidneys are surgically absent. 13. There is a large hernia in the right ventral pelvis which contains loops of small bowel and colon. ABDOMEN NO IV/ORAL CONT (CT) CT DOSE: 196.23 mGy.cm HISTORY: Pain. Nausea. upper abdominal pain, elev lipase, alk phos, multiple surgeries TECHNIQUE: Multiaxial CT images of the abdomen was performed without contrast. A dose lowering technique was utilized adhering to the principles of ALARA. COMPARISON STUDY: 07/22/2017 FINDINGS: Lung bases are considered clear. Cardiac calcification is unchanged in appearance and location. Mild peripheral calcification of liver is again noted. Mild capsular scarring with subtle nodularity suggesting mild cirrhotic change are nonprogressive. Diffuse fatty replacement of the pancreas. Dense calcification of the abdominal aorta as well as iliac vasculature. Surgical resection of the [place] kidneys and spleen Right lateral spiculation hernia with several containing bowel loops. This is unchanged from the prior study and is considered nonobstructive. Bowel pattern within the upper abdomen is nonobstructive. Mild compression deformity of T12 is unchanged. IMPRESSION: 1. No change as compared to the prior study.. 2. Extensive chronic change as described. 3. Mild hepatic cirrhosis unchanged. 4. [place] kidneys and spleen are surgically absent. FINDINGS: An AP, portable, upright chest radiograph is compared to study dated 05/14/2017. The examination is degraded by portable technique and apical lordotic positioning. The patient is status post midline sternotomy. The heart is markedly enlarged and there is atherosclerotic calcification of the thoracic aorta. The pulmonary vasculature is noncongested. Chronic interstitial thickening is similar to previous. There is no airspace consolidation or large pleural effusion. No pneumothorax is seen. The skeletal structures are osteopenic. 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 IMPRESSION: Cardiomegaly with no acute cardiopulmonary abnormality. Consultations: GI Renal Cardiology Medication Reconciliation New Medications: Hydromorphone HCl (Dilaudid) 1 Mg/Ml Inj 1 DOSE IV UD PRN for Pain, #1 DOSE Piperacillin Sodium-Tazobactam (Zosyn) 1 Inj Inj 1 DOSE IV UD, #1 DOSE Heparin Sod (Porcine) (Heparin Sodium) 5,000 Unit/0.5 Ml Inj 5000 UNIT SQ Q12, #1 DOSE Continued Medications: Atorvastatin (Lipitor) 20 Mg Tab 20 MG PO HS Cilostazol (Pletal) 50 Mg Tab 50 MG PO DAILY, TAB Cinacalcet Hydrochloride (Sensipar) 30 Mg Tab 60 MG PO QPM Clopidogrel Bisulfate (Clopidogrel) 75 Mg Tab 75 MG PO DAILY Isosorbide Mononitrate Ext Rel (Imdur Ext Rel) 30 Mg Tabcr 30 MG PO BID Metoprolol Succinate (Metoprolol Succinate ER) 50 Mg Tabcr 50 MG PO BID Nitroglycerin (Nitrostat) 0.4 Mg Tab 0.4 MG UT UD PRN for Chest Pain, BTL PLACE ONE TABLET UNDER THE TONGUE EVERY 5 MINUTES FOR UP TO 3 DOSES OVER 15 MINUTES IF NEEDED FOR CHEST PAIN Oxycodone HCl (Oxycodone HCl) 5 Mg Tab 5 MG PO Q8 PRN for Pain Pantoprazole (Protonix) 40 Mg Tab 40 MG PO QPM Prednisone (Prednisone) 5 Mg Tab 5 MG PO DAILY, TAB Sevelamer Carbonate (Renvela) 800 Mg Tab 1600 MG PO TIDM Vitamin B Cmplx/Vitc/Folic Ac (Nephrocaps) Cap 1 CAP PO DAILY, CAP Discharge Exam Review of Systems: Constitutional: No fever Respiratory: No shortness of breath Cardiovascular: No chest pain Abdomen: + pain, + nausea, No vomiting Genitourinary - Male: No dysuria Physical Exam: General Appearance: + severe distress Eyes: normal inspection Neck: supple Respiratory/Chest: lungs clear, normal breath sounds Cardiovascular: regular rate, rhythm, no murmur Abdomen / GI: normal bowel sounds, soft, + tenderness (diffusely > in the upper abdomen region) Extremities: no calf tenderness, no pedal edema Neurologic/Psychiatric: alert, oriented x 3 Skin: warm/dry Hospital Course 52y/oM with hx of CAD/SC s/p CABG and stent placement in bypass graft in february 2017, hx of splenectomy and bilateral nephrectomy on HD, pancreatitis, C. diff colitis, cirrhosis who presented with L sided chest pain after argument with son. However chest pain was unusual and not in jaw/axillary region like anginal pain and not relieved by 3 SL nitros at home and 3 SL nitros by EMS in addition to aspirin 324mg. Pain was worse with deep breathing. This AM pt reported upper abdominal pain with nausea. CT abdomen unchanged with chronic changes and not concerning for obstruction. However, pt has significant vascular calcification on CT and given severe pain inconsistent with exam findings concern for ischemic bowel. CTA abdomen concerning for acute ischemic bowel with evidence of pneumatosis intestinalis Dry weight is 67 kilos Severe abdominal pain w/t nausea concern for ischemia vs. cholangitis vs. pancreatitis - Exam diffuse TTP of abdomen, active bowel sounds - CTA acute mesenteric ischemic, pneumatosis intestinalis - CT abdomen: unchanged with chronic changes, no pancreatitis, no bowel obstruction, has a non-obstructing R lateral spiculation hernia, lung bases clear, vascular/organ calcification - WBC elevated to 19 (baseline around 15 due to splenectomy) - Lactate 2.1 -> 5.1 - Alk phos 707 - Lipase initially 405 improved to 305 - hemeoccult - serial exams - worsening - GI consulted - ischemic bowel - Protonix IV 40mg BID - Carafate 1gm once - Pepcid 20mg once - Zofran 4mg Q6H PRN - Simethicone 80mg once - Morphine 4mg Q2H - 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 Molina: pain unlikely to be cardiac in nature, unchanged EKG, ECHO and neg troponin PVD/right iliac artery stenosis - Continue home Pletal 50mg PO daily - Finished course of PT to improve collateral flow Hyperlipidemia - Continue home atorvastatin 20mg PO QHS ESRD on HD s/p bilateral nephrectomy - Continue home Sensipar 60mg PO QHS, Renvela 1600mg PO TID w/t meals, Nephrocaps 1 PO daily, and prednisone 5mg PO daily - Status post dialysis on 11/24 - Consulted table attendant Dr. Azevedo Code: Full DVT: Heparin SQ >30mins critical care Resident Physician Supervision Note: I interviewed and examined the patient. Discussed with Dr. Garcia and agree with findings and plan as documented in the note. Any exceptions or clarifications are listed here: None Documented By: Artie Sanz feeling terrible abdominal pain - revisited - worse initially minimal pain on exam, severe pain at the bedside on subjective asssessment, as the day progressed - worse pain to exam as well initial CT negative - d/w nephro/primary who noted this was like prior PUD. consulted GI to look at this but also to look into my suspicion of ischemic gut from a different set of eyes - they repeated CT now showing evolution of ischemia not present prior - aslo repeat lactate levels went from nonspecific to elevated d/w surgery - not able to care for him surgically here d/w janette - able to take in transfer - helicopter, zosyn started. stable for air transport, anticipated OR tonight pt understanding, family present and understanidng d/[place] gonz[place] [facility] [place] - zosyn, surgical transfer - as above ~60+ mins critical care in his care through the day and arranging transfer Total Time Spent: Greater than 30 minutes This includes examination of the patient, discharge planning, medication reconciliation, and communication with other providers. Discharge Instructions Please refer to the electronic Patient Visit Report (Discharge Instructions) for additional information.
[2017-11-25] MEDS ORDERED: HYDROmorphone INJ 0.5 MG/0.5 ML SYR IV STA (18:30)
[2017-11-25] MEDS ORDERED: ONDANSETRON INJ 2 MG/ML 2 ML VIAL IV STA (19:00)
[2017-11-25] MEDS ORDERED: DOCUSATE SODIUM 100 MG CAP PO SCH (21:00)
[2017-11-25] MEDS ORDERED: RANITIDINE HCL 150 MG TAB PO SCH (21:00)
[2017-11-25] MEDS ORDERED: PANTOprazole SOD 40 MG TAB PO SCH ×2 (21:00)
[2017-11-25] MEDS ORDERED: ATORVASTATIN 20 MG TAB PO SCH (21:00)
--- NOTE | 2017-11-25 21:10 | CARDIOLOGY CONSULTATION ---
DATE OF CONSULTATION: 11/25/2017 Cardiology consultation. REFERRING PHYSICIAN: Mac Madsen MD ATTENDING PHYSICIAN: Artie Sanz DO PRIMARY PHYSICIAN: Todd Azevedo MD CONSULTATION: James Molina M.D. HISTORY OF PRESENT ILLNESS: The patient is a 52-year-old white male with a longstanding history of coronary artery disease. He has undergone multiple percutaneous interventions to his coronary arteries as well as bypass grafts. He is status post CABG surgery in 04/2009. This was performed at [facility]. 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 Initial renal transplant in 1980. 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 Second transplant in 1990 and a third transplant in 2010. Rejection of both the second and third transplants. He currently undergoes hemodialysis via left upper arm arteriovenous fistula on Mondays, Wednesdays, and Fridays. History of hypertension, dyslipidemia, peripheral vascular disease, status post splenectomy, status post cholecystectomy. The patient states that recently he has been in his usual state of health. He has known severe peripheral vascular disease. He has had documentation of a 78% calcified distal aortic stenosis. 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 Conservative management has been recommended as he is at high risk for any type of surgical revascularization. He has been enrolled in cardiac rehabilitation at [facility]. He states that on the treadmill, he was able to exercise for at least 9 minutes until having limiting right leg claudication in his buttocks, thigh, and calf. He denies any anginal symptoms with this exercise. He states that since undergoing a stent to one of his vein grafts in February of 2017 he has had no further anginal symptoms. His typical anginal symptom is a retrosternal heaviness and tightness radiating to his jaw and both axillary regions. This can be associated with nausea. The patient states that after dialysis yesterday, he had crampy abdominal discomfort. This persisted. Last night under increased emotional stress, he developed a sharp left-sided chest pain which lasted for at least 3 hours. He states that this was different than his prior anginal symptoms. Because of these symptoms, he did come to [facility] for evaluation. He was admitted via the Emergency Department to the telemetry/medical floor. The left-sided chest pain has resolved. He states that his abdominal discomfort has persisted. It is worsened. This morning when I saw him at approximately 9:00 a.m. he was complaining of very severe bilateral upper abdominal discomfort. He describes this as a [id number] pain. He has dry heaves. He denies any symptoms of GI bleeding recently. He states that prior to yesterday, he had recently been feeling well and was not having any significant GI symptoms. His past medical history is significant for developing severe GI bleeding 1 week after his stent procedure in February. He presented to [facility] on 03/04/2017 with 2-day history of hematochezia. He was transfused 2 units of packed red blood cells. His antiplatelet therapy was held. Following admission, he had further bloody bowel movements and accompanying hypotension. He was transfused an additional 2 units of packed red blood cells. An EGD showed gastritis and a small hiatal hernia. Colonoscopy revealed nonbleeding ulcerated mucosa with stigmata of recent bleeding in the ascending colon and cecum. This was treated with injection of epinephrine and 2 hemostatic clips. He was transferred to [facility]. At the [facility], he was restarted on clopidogrel and aspirin. He thereafter had recurrent hypotension and worsening anemia. He thereafter received transfusion of 8 units of packed red blood cells as well as platelet transfusion and fresh frozen plasma transfusion. Pressors were required. Because of this severe vascular disease, prophylactic embolization could not be performed. He was felt to be too high at risk for colorectal surgery. He was treated with medical management. He stabilized. His clopidogrel was subsequently restarted. He was then discharged home. The patient denies any symptoms of GI bleeding since then. PAST MEDICAL HISTORY: 1. End-stage renal disease as documented above. 2. Coronary artery disease. History of drug-eluting stent in mid LAD in 2005. CABG surgery 04/2009. The surgery was performed at [facility]. The surgical report states that he had a left internal mammary artery graft to the LAD. Saphenous vein graft to 2 branches of the ramus. Cardiac catheterization in June 2009 after presentation with non-ST elevation [place] showed patent HUMPHREYS graft to the LAD. Severe ostial and mid LAD stenosis. Moderate left main stenosis. Severe distal LAD stenosis following graft insertion. Moderate ostial ramus stenosis. Severe mid ramus stenosis. Chronic mid RCA occlusion. Saphenous vein graft to ramus with distal anastomotic stenosis. The other anastomosis appeared to be to a posterolateral artery. PCI on 10/08/2009 at [facility] in [place]. A 2.5 x 18 mm drug-eluting stent in LAD. 3.5 x 20 mm drug-eluting stent in left main extending into left circumflex. Complicated by a right femoral arteriovenous fistula treated conservatively. Repeat cardiac catheterization 04/2015 with severe 3-vessel CAD performed at [facility]. The MARTHA graft was still patent. Patent vein graft to a left circumflex marginal and then to a distal left circumflex was reported. It was reported that there was a chronic occlusion of the vein graft to the first left circumflex marginal branch. Cardiac catheterization performed at [facility] 02/23/2017 with severe calcification of left main with diffuse in-stent restenosis. Total ostial LAD occlusion. Proximal total left circumflex occlusion. Proximal total RCA occlusion. Kjljf-yr-bogdu collaterals. HUMPHREYS to LAD patent. A 40% in-stent restenosis in the distal LAD. 90% stenosis in vein graft to left posterolateral branch. Y graft to first marginal occluded. He was transferred to [facility] in [place] where he underwent deployment of a 3.5 x 15 mm Alpine drug-eluting stent to the stenosis in the vein graft. Post-dilated with a 3.5 mm balloon. The procedure at [facility] as well as at [facility] was performed via the left femoral artery. He has an occluded right common iliac artery, heavily calcified and tortuous left common femoral artery and left common iliac artery. The report from [facility] states that after the procedure, he had a patent SVG to left circumflex marginal branch and then continuing on to a left PDA. It was reported that there was a patent SVG to a tiny LAD diagonal vessel. Chronically occluded Y graft to the first marginal. 3. Chronic anemia. 4. Dyslipidemia. 5. Hypertension. 6. Peripheral vascular disease. 7. History of asthmatic bronchitis. 8. Diverticulosis. 9. History of gastric ulcer and gastritis. 10. History of C. difficile colitis. 11. Osteoarthritis. 12. Sleep apnea. PAST SURGICAL HISTORY: 1. Status post 3 renal transplants. 2. Status post repair of incisional hernia. 3. Status post CABG surgery. 4. Status post cholecystectomy. 5. Status post splenectomy. MEDICATIONS: This morning included atorvastatin 20 mg at bedtime, pantoprazole 40 mg b.i.d., docusate sodium 100 mg b.i.d., ranitidine 150 mg b.i.d., sucralfate 1 gram p.o. q.i.d., Dilaudid 25 mg IV as needed for pain, 5000 units subcutaneous heparin q. 12 hours, cilostazol 50 mg p.o. daily, clopidogrel 75 mg daily, isosorbide mononitrate 30 mg p.o. b.i.d., metoprolol succinate ER 50 mg p.o. b.i.d., prednisone 5 mg daily, Renagel 1600 mg p.o. t.i.d., and several p.r.n. medications. ALLERGIES AND ADVERSE DRUG REACTIONS: DIAZOXIDE AND NONSTEROIDAL ANTI-INFLAMMATORY DRUGS. SOCIAL HISTORY: The patient is and lives with his . Prior history of cigarette smoking. FAMILY HISTORY: History of coronary artery disease in his father. REVIEW OF SYSTEMS: 1. As above. 2. No fevers or chills. 3. No recent symptoms of GI bleeding. 4. Claudication in right buttock, thigh, and calf with prolonged walking. No rest claudication. 5. No cerebrovascular complaints at this time. 6. No recent wheezing or cough. 7. No HEENT complaints. PHYSICAL EXAMINATION: GENERAL: The patient was lying in his bed. He appeared to be in significant discomfort from his abdominal pain. VITAL SIGNS: This morning revealed oral temperature 36.6, pulse 82, blood pressure 132/85, pulse oximetry room air 94%. HEAD: Normal. EYES: Anicteric. NECK: No jugular venous distention. Carotids 2/2 bilaterally. Normal upstroke. No bruits. LUNGS: Normal respiratory effort. No rales or wheezes. HEART: Regular rate and rhythm. S1, S2 normal. No lifts or heaves. PMI normal. Grade 2/6 systolic murmur second intercostal space and left sternal border. No diastolic murmur or rub. ABDOMEN: Hypoactive bowel sounds. No bruits heard. No palpable masses or organomegaly. Diffuse mild tenderness on palpation. EXTREMITIES: No pretibial edema. No cyanosis or clubbing. CHEST WALL: No tenderness on palpation of the chest wall. NEUROLOGIC: Alert and oriented x3. Motor grossly intact. PSYCHIATRIC: Affect normal. DATA: Electrocardiogram performed November 24 in the Emergency Room with sinus rhythm, left axis deviation, right bundle branch block, T-wave inversions in the anterior leads. Compared to 05/14/2017 electrocardiogram, no significant change. Electrocardiogram reviewed by me. Electrocardiogram performed this morning with similar findings to last night's ECG. No significant change. Echocardiogram performed today with LV ejection fraction 55%-60%. Wall motion abnormalities in the anterior septum, distal inferior, and distal septal segments. Severe hypokinesis to akinesis. Hypokinesis of the basal septal, [id number] inferior wall, and basal anterior septum. Severe concentric LVH. Grade 1 LV diastolic dysfunction. Decreased right ventricular systolic function. Mild aortic stenosis. Mild mitral regurgitation. Mild tricuspid regurgitation. The dimensionless aortic valve index 0.38. Calculated aortic valve area 1.4 square cm. Chest x-ray performed last evening and reviewed by me showed no evidence of congestive heart failure. No pulmonary infiltrates. LABS TODAY: WBC 18.95. Increased neutrophil count of 11.21. Hemoglobin 14.8 with hematocrit 43.7. Platelet count 391. Metabolic profile this morning, sodium 139, potassium 5.0, chloride 101, carbon dioxide 28, BUN 49, creatinine 7.54, random glucose 114. AST 32. ALT 41. Troponin I's on this admission 0.019. Lipase last evening was 405, repeat lipase this morning 305. Alkaline phosphatase last evening 696, this morning 707. Point of care troponin I's were 0.040, and 0.030. ASSESSMENT: 1. No evidence of an acute coronary process. The patient denies any of his previous anginal type pains. Electrocardiogram without any new changes compared to 04/2017. No new wall motion abnormalities on echocardiography. Cardiac enzymes negative for myocardial injury. 2. Atypical left-sided sharp chest pain last night. This has since resolved. 3. Abdominal cramping starting yesterday. It is persisted since then. He now has severe upper abdominal pain. Lipase elevated. Alkaline phosphatase elevated. We have to consider gastroenterology etiology such as pancreatitis. 4. History of significant gastrointestinal bleeding. Multiple units of packed red blood cells given last February for severe lower gastrointestinal bleeding. No current symptoms of gastrointestinal bleeding. Hemoglobin today is normal. 5. End-stage renal disease. No evidence of volume overload on exam today. He dialyzed yesterday. 6. Severe peripheral vascular disease. Stable exertional claudication in right leg. No rest claudication. 7. Mildly elevated blood pressure this morning. The patient is in significant discomfort from his abdominal pain. RECOMMENDATIONS: 1. Continue usual cardiac medications. 2. Continue clopidogrel. 3. GI evaluation. This was discussed with the hospitalist service. Case discussed by me with both Dr. Garcia as well as Dr. Sanz. Case also discussed with Dr. Azevedo. 4. No further cardiac testing at this time. Thank you for asking me to see this patient in cardiology consultation.
[2017-11-26] MEDS ORDERED: PIPERACILL/TAZOBAC IV 3.375 GM in NSS 100ML IV SCH (02:00)
[2017-11-26] MEDS ORDERED: HEPARIN SOD (PORCINE) 1000 UNIT/ML 10 ML VIAL IV ONE (08:00)
== END 2017-11-25 19:50 | disposition short-term general hospital (02) | DRG 393 ==
LOC: EDBD 20:05 → C.EDB 20:07 → C.MED 23:40 → ENRESERV 11-25 00:03 → OBSVTOIN 11-25 13:01
PROVIDERS: ADMIT Hospitalist; ATTEND Family Medicine
DX: K55.059 Acute (reversible) ischemia of intestine, part and extent unspecified (principal); N18.6 End stage renal disease; I48.92 Unspecified atrial flutter; I50.22 Chronic systolic (congestive) heart failure; I13.2 Hypertensive heart and chronic kidney disease with heart failure and with stage 5 chronic kidney disease, or end stage renal disease; Z94.0 Kidney transplant status; I70.8 Atherosclerosis of other arteries; K74.60 Unspecified cirrhosis of liver; Z95.818 Presence of other cardiac implants and grafts; I25.2 Old myocardial infarction; Z95.1 Presence of aortocoronary bypass graft; I25.10 Atherosclerotic heart disease of native coronary artery without angina pectoris; E78.5 Hyperlipidemia, unspecified; K21.9 Gastro-esophageal reflux disease without esophagitis; Z90.81 Acquired absence of spleen; Z90.5 Acquired absence of kidney; Z88.6 Allergy status to analgesic agent; Z88.8 Allergy status to other drugs, medicaments and biological substances; K27.9 Peptic ulcer, site unspecified, unspecified as acute or chronic, without hemorrhage or perforation